=== PATIENT | female | born 1950 | race Caucasian/White ===

== ENCOUNTER 2016-11-30 07:48 | Day surgery (SDC) | payer MEDICARE, MEDICAID ==
[~2016-11-30 07:48] MED LIST: PROPOFOL INJ 200 MG/20 ML VIAL IV ONE
[2016-11-30] MEDS ORDERED: DIPHENHYDRAMINE HCL 50 MG/ML VIAL IV PRN (10:24)
[2016-11-30] MEDS ORDERED: PROMETHAZINE HCL INJ 25 MG/1 ML VIAL IV PRN (10:24)
--- NOTE | 2016-11-30 10:38 | Operative Report ---
Operative Report DATE OF SURGERY: 11/30/16 Operative Report: The risks, benefits and alternatives of the procedure including risks of bleeding, perforation requiring surgery are explained to the patient in detail and informed consent is obtained. The patient is taken back to the operating room and she is placed in the left lateral decubital position. Timeout is called. Propofol medication is administered. A rectal examination was done which did not reveal any masses, tears or fissures. An Olympus videoscope was inserted into the patient's rectum. Keeping the lumen in sight at all times the scope was then gradually advanced all the way to the cecum. The cecum identified by the usual anatomical landmarks of the ileocecal valve as well as the appendiceal office. Photodocumentation obtained prep is good. Intubation of the terminal ileum is done. The scope was then sequentially pulled back out via the various segments of the colon including the ascending colon, hepatic flexure, transverse colon, splenic flexure, descending colon and finally into the rectosigmoid colon. Retroflexion maneuvers performed. PREOPERATIVE DIAGNOSIS: Diarrhea, change of bowel habits. Previous history of C. difficile colitis status post fecal transplantation and since then has been negative. POSTOPERATIVE DIAGNOSIS: Mild nonspecific colitis of the right sided colon biopsies obtained rule out collagenous, lymphocytic, microscopic colitis. Mild terminal ileitis biopsies obtained OPERATION: Colonoscopy with biopsy SURGEON: MARIFER NORRIS ANESTHESIA: LMAC TISSUE REMOVED OR ALTERED: Terminal ileal specimens obtained. Right sided colon specimens obtained COMPLICATIONS: None. ESTIMATED BLOOD LOSS: none. INTRAOPERATIVE FINDINGS: As described above. No evidence of diverticulosis, AVMs or polyps. Internal hemorrhoids are noted PROCEDURE: Patient tolerated the procedure well. No immediate post procedure complications are noted. Patient is discharged in good condition. Discharge date 11/30/2016. Discharge diet: Regular. Discharge activity: Regular. Follow-up in 2-3 weeks Patient is instructed to call the office or proceed to the emergency room after any further problems or questions. Await on biopsies.
[2016-11-30 13:01] VITALS: BP 128/59
== END 2016-11-30 12:10 ==
LOC: OROUT 07:48
PROVIDERS: ATTEND Internal Medicine Gastroenterology
PROC: 0DBF8ZX Excision of Right Large Intestine, Via Natural or Artificial Opening Endoscopic, Diagnostic (ICD-10-PCS; 2016-11-30)
PROC: 0DBB8ZX Excision of Ileum, Via Natural or Artificial Opening Endoscopic, Diagnostic (ICD-10-PCS; principal; 2016-11-30 09:30)
DX: K52.9 Noninfective gastroenteritis and colitis, unspecified (principal); K92.1 Melena; J44.9 Chronic obstructive pulmonary disease, unspecified; I10 Essential (primary) hypertension; E11.9 Type 2 diabetes mellitus without complications; M19.90 Unspecified osteoarthritis, unspecified site; I25.10 Atherosclerotic heart disease of native coronary artery without angina pectoris; I50.9 Heart failure, unspecified; Z86.19 Personal history of other infectious and parasitic diseases; Z79.899 Other long term (current) drug therapy; Z79.4 Long term (current) use of insulin; Z79.82 Long term (current) use of aspirin
CPT/HCPCS: 45380; 36415; 82962; 84132; 88305 ×2; J2704; 810

== ENCOUNTER 2017-03-04 09:38 | Inpatient (IN) | payer MEDICARE, MEDICAID ==
[2017-03-04] MEDS ORDERED: IPRATROPIUM/ALBUTEROL 0.5-2.5 MG/3 ML AMPUL NEB ONE (10:18)
--- NOTE | 2017-03-04 10:25 | ER Document Report ---
ED General - General Chief Complaint: Nausea/Vomiting/Diarrhea Stated Complaint: WEAKNESS Mode of Arrival: Medic Information source: Patient, PENDING SALE TO [facility] Records Notes: This is a 66 year old female with multiple medical problems who is a resident of [facility] who presents with generalized weakness and overall not feeling well for the past few days. She states that her symptoms began with nausea vomiting and diarrhea about 4 days ago. This resolved and she has not had diarrhea or vomiting in the past 2 days. However she has been unable to sleep at night. She reports subjective fevers and some chills last night. She denies cough or congestion but has had mild shortness of breath. No dysuria. Her last bowel movement was yesterday and says that it was more solid. This morning she tolerated breakfast and had henao and cheese. She denies any current pain. She has had no chest pain. TRAVEL OUTSIDE OF THE [place] IN LAST 30 DAYS: No - Related Data Allergies/Adverse Reactions: No Known Allergies Allergy (Verified 04/07/16 16:28) Past Medical History - General Information source: PENDING SALE TO [facility] Records - Social History Smoking Status: Unknown if Ever Smoked Frequency of alcohol use: None Drug Abuse: None Lives with: Senior Living Family History: None - Past Medical History Cardiac Medical History: Reports: Hx Congestive Heart Failure, Hx Coronary Artery Disease, Hx Hypercholesterolemia, Hx Hypertension Denies: Hx DVT, Hx Heart Attack, Hx Pulmonary Embolism Pulmonary Medical History: Reports: Hx COPD, Hx Sleep Apnea Denies: Hx Asthma, Hx Bronchitis, Hx Pneumonia Neurological Medical History: Denies: Hx Cerebrovascular Accident, Hx Seizures Endocrine Medical History: Reports: Hx Diabetes Mellitus Type 1, Hx Diabetes Mellitus Type 2, Hx Hypothyroidism. Denies: Hx Hyperthyroidism GI Medical History: Denies: Hx Cirrhosis, Hx Hepatitis Musculoskeltal Medical History: Reports Hx Arthritis Skin Medical History: Denies Hx Eczema, Denies Hx Psoriasis Psychiatric Medical History: Reports: Hx Depression Infectious Medical History: Denies: Hx Hepatitis Past Surgical History: Reports: Hx Abdominal Surgery - umbilical hernia, Hx Appendectomy, Hx Section, Hx Cholecystectomy. Denies: Hx Hysterectomy - Immunizations Hx Diphtheria, Pertussis, Tetanus Vaccination: Yes Hx Pneumococcal Vaccination: 08/06/15 Review of Systems - Review of Systems Notes: REVIEW OF SYSTEMS: CONSTITUTIONAL : As per history of present illness EENT: Denies eye, ear, throat, or mouth pain or symptoms. Denies nasal or sinus congestion. CARDIOVASCULAR: Denies chest pain. RESPIRATORY: Denies cough, cold, or chest congestion. Denies difficulty breathing, or wheezing. GASTROINTESTINAL: Denies abdominal pain. Recent vomiting and diarrhea per history of present illness which is now resolved. GENITOURINARY: Denies difficulty urinating, painful urination, burning, frequency, or blood in urine. MUSCULOSKELETAL: Denies neck or back pain or joint pain SKIN: Denies rash or skin lesions. HEMATOLOGIC : Denies easy bruising or bleeding. LYMPHATIC: Denies swollen, enlarged glands. NEUROLOGICAL: Denies altered mental status or loss of consciousness. Denies headache. PSYCHIATRIC: Denies anxiety or stress or depression. ALL OTHER SYSTEMS REVIEWED AND NEGATIVE. Physical Exam - Vital signs Vitals: Pulse Resp BP Pulse Ox 70 18 99/45 L 98 03/04/17 09:50 03/04/17 09:50 03/04/17 09:50 03/04/17 09:50 BP on my exam 121/78 - Notes Notes: PHYSICAL EXAMINATION: GENERAL: Morbidly obese elderly female, alert and conversant and in no acute distress. HEAD: Atraumatic, normocephalic. EYES: Pupils equal round and reactive to light, extraocular movements intact, sclera anicteric, conjunctiva are normal. ENT: nares patent, oropharynx clear without exudates. Moist mucous membranes. NECK: Normal range of motion, supple without lymphadenopathy LUNGS: Few scattered and occasional expiratory wheezes bilaterally, otherwise good air movement and no rhonchi or rales HEART: Regular rate and rhythm without murmurs ABDOMEN: Soft, obese, nontender, normoactive bowel sounds. No guarding, no rebound. No masses appreciated. EXTREMITIES: Normal range of motion. Symmetric lower extremity 1+ edema which pt states is chronic for her NEUROLOGICAL: Cranial nerves grossly intact. Normal speech. No gross focal motor or sensory deficits appreciated PSYCH: Normal mood, normal affect. SKIN: Warm, Dry, normal turgor, no rashes or lesions noted. Course - Re-evaluation Re-evalutation: 03/04/17 12:01 Labs reviewed. IV antibiotics initiated for urinary tract infection. Patient is also in acute renal failure. She states that about a month ago her Lasix dose was increased from 80 mg once a day to 80 mg twice a day. This is the likely etiology of her renal failure, along with her recent vomiting and diarrhea. Discussed with hospitalist Dr. Vilchis who will admit - Vital Signs Vital signs: Temp Pulse Resp BP Pulse Ox 98.1 F 70 16 135/51 H 98 03/04/17 09:58 03/04/17 09:50 03/04/17 11:01 03/04/17 11:01 03/04/17 11:01 - Laboratory Result Diagrams: 03/04/17 10:52 03/04/17 10:52 Laboratory results interpreted by me: 03/04/17 03/04/17 03/04/17 10:32 10:52 10:52 WBC 13.2 H RBC 3.51 L Hgb 10.5 L Hct 32.1 L Absolute Neutrophils 8.6 H Absolute Monocytes 1.5 H Potassium 5.4 H BUN 70 H Creatinine 3.15 H Est GFR ( Amer) 18 L Est GFR (Non-Af Amer) 15 L Glucose 217 H Direct Bilirubin 0.5 H Creatine Kinase 141 H Ur Leukocyte Esterase LARGE H - EKG Interpretation by Me Additional EKG results interpreted by me: 03/04/17 10:28 EKG at 0954 demonstrates NSR with rate of 68, LVH, normal QRS/QT intervals, no ST segment elevation or depression Discharge - Discharge Clinical Impression: Hyperkalemia UTI (urinary tract infection) Qualifiers: Urinary tract infection type: site unspecified Hematuria presence: without hematuria Qualified Code(s): N39.0 - Urinary tract infection, site not specified Acute renal failure Qualifiers: Acute renal failure type: unspecified Qualified Code(s): N17.9 - Acute kidney failure, unspecified Condition: Fair Disposition: ADMITTED INPATIENT Admitting Provider: Hospitalist - Dr. Vilchis Unit Admitted: Medical Floor
[2017-03-04 11:10] LABS: ABSOLUTE BASOPHILS # (AUTO) 0.1 10^3/uL (0.0-0.2); ABSOLUTE EOSINOPHILS # (AUTO) 0.2 10^3/uL (0.0-0.6); ABSOLUTE LYMPHOCYTES (AUTO) 2.8 10^3/uL (0.5-4.7); ABSOLUTE MONOCYTES (AUTO) 1.5 10^3/uL (0.1-1.4); ABSOLUTE NEUT (AUTO) 8.6 10^3/uL (1.7-8.2); BASOPHILS % (AUTO) 0.5 % (0-2); EOSINOPHILS % (AUTO) 1.3 % (0-6); HEMATOCRIT 32.1 % (36.0-47.0); HEMOGLOBIN 10.5 g/dL (12.0-15.5); HGB HCT DIFFERENCE -0.6; LYMPHOCYTES % (AUTO) 21.2 % (13-45); MEAN CORPUSCULAR HGB CONC 32.8 g/dL (32.0-36.0); MEAN CORPUSCULAR VOLUME 91 fl (80-97); MONOCYTES % (AUTO) 11.2 % (3-13); RED BLOOD COUNT 3.51 10^6/uL (3.72-5.28); SEGMENTED NEUTROPHILS % (AUTO) 65.8 % (42-78); WHITE BLOOD COUNT 13.2 10^3/uL (4.0-10.5)
[2017-03-04 11:12] LABS: APPEARANCE,URINE CLOUDY; BILIRUBIN,URINE NEGATIVE (NEGATIVE); GLUCOSE, URINE NEGATIVE (NEGATIVE); KETONES,URINE NEGATIVE (NEGATIVE); LEUKOCYTE ESTERASE,URINE LARGE (NEGATIVE); NITRITE,URINE NEGATIVE (NEGATIVE); PROTEIN,URINE NEGATIVE (NEGATIVE); URINE SPECIFIC GRAVITY 1.011; UROBILINOGEN,URINE NEGATIVE mg/dL (<2.0)
[2017-03-04] MEDS ORDERED: CEFTRIAXONE 1 GM/D5W RTU 50 ML IV ONE (11:33)
[2017-03-04 11:34] LABS: ALANINE AMINOTRANSFERASE 26 U/L (9-52); ALBUMIN 3.6 g/dL (3.5-5.0); ALKALINE PHOSPHATASE 62 U/L (38-126); ANION GAP 13 (5-19); ASPARTATE AMINO TRANSFERASE 20 U/L (14-36); BILIRUBIN,DIRECT 0.5 mg/dL (0.0-0.4); BILIRUBIN,TOTAL 0.7 mg/dL (0.2-1.3); BLOOD UREA NITROGEN 70 mg/dL (7-20); CALCIUM 9.8 mg/dL (8.4-10.2); CARBON DIOXIDE 29 mmol/L (22-30); CHLORIDE 99 mmol/L (98-107); CREATINE KINASE 141 U/L (30-135); CREATININE RESULT 3.15 mg/dL (0.52-1.25); GLUCOSE 217 mg/dL (75-110); POTASSIUM 5.4 mmol/L (3.6-5.0); SODIUM 140.7 mmol/L (137-145); TOTAL PROTEIN 7.2 g/dL (6.3-8.2)
[2017-03-04 11:46] LABS: TROPONIN I 0.014 ng/mL
[2017-03-04 11:47] LABS: CREATINE KINASE MB < 0.22 ng/mL (<4.55)
[2017-03-04] MEDS ORDERED: ONDANSETRON 4 MG TAB.RAPDIS PO PRN (12:25)
[2017-03-04] MEDS ORDERED: ACETAMINOPHEN 325 MG TABLET PO PRN (12:25)
[2017-03-04] MEDS ORDERED: ONDANSETRON HCL INJ/PF 4 MG/2 ML SDV IV PRN (12:25)
[2017-03-04] MEDS ORDERED: NORMAL SALINE 1000 ML 1,000 ML IV PRN (12:25)
[2017-03-04] MEDS ORDERED: DEXTROSE 40% GEL 15 GM TUBE PO PRN ×2 (12:36)
[2017-03-04] MEDS ORDERED: GLUCAGON,HUMAN RECOMB 1 MG INJ IM PRN (12:36)
[2017-03-04] MEDS ORDERED: DEXTROSE 50%-WATER 25 GM/50 ML DISP.SYRIN IV PRN ×2 (12:36)
[2017-03-04] MEDS ORDERED: ERTAPENEM SODIUM 1 GM in NORMAL SALINE 50 ML IV SCH (12:45)
--- NOTE | 2017-03-04 13:00 | PDOC H&P ---
History of Present Illness Admission Date/PCP: 03/04/17 12:09 PANDA RODRIGUEZ Patient complains of: 1 and half week history of cough and diarrhea. History of Present Illness: LORETO JOSHI is a 66 year old female known to me from previous admissions who presents with acute renal failure and a urinary tract infection. Patient reports that over the last one half weeks she's had problems with a nonproductive cough as well as diarrhea. She does have a history of C. difficile in the past. She reports that today she's had some chills and was noted have a low-grade fever by EMS. The patient's creatinine was up to 3.5 today and was normal just several months ago. She does have a history of chronic renal failure stage III. The patient denies any dysuria or urinary frequency. She denies any hematuria. She denies any back pain. Patient has had problems with congestive heart failure as well as the chronic renal failure and her diuretic dose has been adjusted recently. Past Medical History Cardiac Medical History: Reports: Congestive Heart Failure, Coronary Artery Disease, Hyperlipidema, Hypertension Denies: DVT, Myocardial Infarction, Pulmonary Embolism Pulmonary Medical History: Reports: Chronic Obstructive Pulmonary Disease (COPD) , Sleep Apnea Denies: Asthma, Bronchitis, Pneumonia Neurological Medical History: Reports: Other - Peripheral neuropathy Denies: Seizures Endocrine Medical History: Reports: Diabetes Mellitus Type 2, Hypothyroidism Denies: Hyperthyroidism Renal/ Medical History: Reports: Chronic Kidney Disease GI Medical History: Denies: Cirrhosis, Hepatitis Musculoskeltal Medical History: Reports: Arthritis Skin Medical History: Denies: Eczema, Psoriasis Psychiatric Medical History: Reports: Depression Hematology: Reports: Anemia Past Surgical History Past Surgical History: Reports: Appendectomy, Section, Cholecystectomy Social History Information Source: Patient Lives with: Shelter Smoking Status: Never Smoker Frequency of Alcohol Use: None Hx Recreational Drug Use: No Drugs: None Hx Prescription Drug Abuse: No - Advance Directive Resuscitation Status: Full Code Surrogate healthcare decision maker:: Her son Family History Family History: CAD Parental Family History Reviewed: Yes Children Family History Reviewed: No Sibling(s) Family History Reviewed.: No Medication/Allergy Home Medications: Amlodipine Besylate [Norvasc 10 mg Tablet] 10 mg PO DAILY 08/16/16 Aspirin [Aspirin 325 mg Tablet] 325 mg PO DAILY 08/16/16 Atorvastatin Calcium [Lipitor 20 mg Tablet] 20 mg PO QHS 08/16/16 Carvedilol 6.25 mg PO Q12 08/16/16 Ergocalciferol (Vitamin D2) [Drisdol] 50,000 unit PO AYOUB 08/16/16 Fenofibrate Nanocrystallized [Tricor] 145 mg PO DAILY 08/16/16 Ferrous Sulfate [Ferrousul] 325 mg PO DAILY 08/16/16 Furosemide [Lasix 40 mg Tablet] 40 mg PO DAILY 08/16/16 Insulin Glargine,Hum.rec.anlog [Lantus Insulin 100 Unit/1 ml 10 ml] 50 units SUBCUT BID 08/16/16 Levothyroxine Sodium [Synthroid 0.088 mg Tablet] 88 mcg PO DAILY 08/16/16 Lisinopril [Prinivil 2.5 mg Tablet] 2.5 mg PO DAILY 08/16/16 Omeprazole Magnesium [Prilosec Otc] 20 mg PO DAILY 08/16/16 Ondansetron HCl [Zofran 4 mg Tablet] 4 mg PO Q6HWA 08/16/16 Pregabalin [Lyrica 100 mg Capsule] 75 mg PO TID 08/16/16 Primidone [Mysoline 50 mg Tablet] 25 mg PO DAILYP 08/16/16 Sertraline HCl [Zoloft] 25 mg PO DAILY 08/16/16 Tramadol HCl [Ultram] 50 mg PO TID PRN 08/16/16 Amox Tr/Potassium Clavulanate [Augmentin "500" Tablet] 1 tab PO Q8 #9 tablet Allergies/Adverse Reactions: No Known Allergies Allergy (Verified 04/07/16 16:28) Review of Systems Constitutional: PRESENT: weight loss. ABSENT: chills, fever(s), headache(s) Eyes: ABSENT: visual disturbances Ears: ABSENT: hearing changes Cardiovascular: ABSENT: chest pain, dyspnea on exertion, edema, orthropnea, palpitations Respiratory: PRESENT: cough. ABSENT: hemoptysis Gastrointestinal: PRESENT: diarrhea Genitourinary: ABSENT: dysuria, hematuria Integumentary: ABSENT: rash, wounds Psychiatric: ABSENT: depression Endocrine: ABSENT: cold intolerance, heat intolerance, polydipsia, polyuria Physical Exam Vital Signs: Temp Pulse Resp BP Pulse Ox 98.1 F 70 16 135/51 H 98 03/04/17 09:58 03/04/17 09:50 03/04/17 11:01 03/04/17 11:01 03/04/17 11:01 General appearance: PRESENT: no acute distress, morbidly obese Head exam: PRESENT: atraumatic, normocephalic Eye exam: PRESENT: conjunctiva pink, EOMI, PERRLA. ABSENT: scleral icterus Ear exam: PRESENT: normal external ear exam Mouth exam: PRESENT: moist, tongue midline Neck exam: ABSENT: carotid bruit, JVD, lymphadenopathy, thyromegaly Respiratory exam: PRESENT: clear to auscultation emperatriz. ABSENT: rales, rhonchi, wheezes Cardiovascular exam: PRESENT: RRR. ABSENT: diastolic murmur, rubs, systolic murmur Pulses: PRESENT: normal dorsalis pedis pul GI/Abdominal exam: PRESENT: normal bowel sounds, soft. ABSENT: distended, guarding, mass, organolmegaly, rebound, tenderness Rectal exam: PRESENT: deferred Extremities exam: PRESENT: other - Right arm swollen more than left arm.. ABSENT: calf tenderness, clubbing Neurological exam: PRESENT: alert, awake, oriented to person, oriented to place , oriented to time, oriented to situation, CN II-XII grossly intact. ABSENT: motor sensory deficit Psychiatric exam: PRESENT: appropriate affect, normal mood. ABSENT: homicidal ideation, suicidal ideation Skin exam: PRESENT: dry, intact, warm. ABSENT: cyanosis, rash Results Impressions: Chest X-Ray 03/04/17 10:18 IMPRESSION: Cardiomegaly with mild vascular congestion. Assessment & Plan - Diagnosis (1) Acute renal failure Is this a current diagnosis for this admission?: YesPlan: Patient has had decreased by mouth intake as well as some diarrhea for the last one half weeks. She appears to be volume depleted and we will give IV fluids. The difficulty for this patient is that she also has congestive heart failure and does require diuretics frequently for treatment of her congestive heart failure. I discussed the possibility of her having dialysis however at this time she is not interested. Her son who is at the bedside encouraged her to consider dialysis. (2) UTI (urinary tract infection) Qualifiers: Urinary tract infection type: site unspecified Hematuria presence: without hematuria Qualified Code(s): N39.0 - Urinary tract infection, site not specified Is this a current diagnosis for this admission?: YesPlan: Patient has a history of Escherichia coli that is extended spectrum beta- lactamase. We'll give ertapenem because of this. (3) Anemia, chronic disease Is this a current diagnosis for this admission?: YesPlan: Most likely related to her chronic renal failure stage III. (4) CAD (coronary artery disease) Qualifiers: Coronary Disease-Associated Artery/Lesion type: [place] artery [place] vs. transplanted heart: unspecified whether [place] or transplanted heart Associated angina: without angina Qualified Code(s): I25.10 - Atherosclerotic heart disease of [place] coronary artery without angina pectoris Is this a current diagnosis for this admission?: YesPlan: Patient denies any chest pain. (5) CHF (congestive heart failure) Qualifiers: Congestive heart failure type: diastolic Congestive heart failure chronicity: chronic Qualified Code(s): I50.32 - Chronic diastolic ( congestive) heart failure Is this a current diagnosis for this admission?: YesPlan: Patient has chronic diastolic dysfunction. (6) COPD (chronic obstructive pulmonary disease) Qualifiers: COPD type: unspecified COPD Qualified Code(s): J44.9 - Chronic obstructive pulmonary disease, unspecified Is this a current diagnosis for this admission?: YesPlan: We'll give nebulizers as needed. (7) Diabetes Is this a current diagnosis for this admission?: YesPlan: We'll continue with Lantus and sliding scale insulin. (8) Obstructive sleep apnea Is this a current diagnosis for this admission?: YesPlan: Patient uses CPAP at night. (9) Peripheral neuropathy Qualifiers: Peripheral neuropathy type: polyneuropathy, unspecified Qualified Code(s): G62.9 - Polyneuropathy, unspecified Is this a current diagnosis for this admission?: Yes (10) Dyslipidemia Is this a current diagnosis for this admission?: Yes (11) Hypothyroidism Qualifiers: Hypothyroidism type: unspecified Qualified Code(s): E03.9 - Hypothyroidism, unspecified (12) C. difficile colitis Is this a current diagnosis for this admission?: YesPlan: Patient has a history of C. difficile colitis and does have diarrhea. We will check a C. difficile test today. (13) Full code status Is this a current diagnosis for this admission?: Yes - Time Time Spent: 50 to 70 Minutes - Inpatient Certification Medical Necessity: Need For IV Fluids, Need for IV Antibiotics
[2017-03-04] MEDS ORDERED: ENOXAPARIN SODIUM INJ 30 MG/0.3 ML DISP.SYRIN SUBCUT ONE (13:30)
[2017-03-04] MEDS: INSULIN LISPRO 100 UNIT/ML 3 ML VIAL SUBCUT PRN ×2 (14:25→22:25)
[2017-03-04] MEDS: ALBUTEROL SULFATE 0.083% NEB 2.5 MG/3 ML AMPUL NEB PRN (16:16)
[2017-03-04] MEDS: ERTAPENEM SODIUM 0.5 GM in NORMAL SALINE 50 ML IV SCH (16:45)
[2017-03-04] MEDS: FAMOTIDINE 20 MG TABLET PO SCH (21:11)
[2017-03-05 04:44] LABS: HEMATOCRIT 29.9 % (36.0-47.0); HEMOGLOBIN 9.9 g/dL (12.0-15.5); HGB HCT DIFFERENCE -0.2; MEAN CORPUSCULAR HEMOGLOBIN 30.1 pg (27.0-33.4); MEAN CORPUSCULAR VOLUME 91 fl (80-97); RED BLOOD COUNT 3.28 10^6/uL (3.72-5.28); WHITE BLOOD COUNT 9.5 10^3/uL (4.0-10.5)
[2017-03-05 05:08] LABS: ANION GAP 13 (5-19); BLOOD UREA NITROGEN 72 mg/dL (7-20); CALCIUM 9.5 mg/dL (8.4-10.2); CARBON DIOXIDE 26 mmol/L (22-30); CHLORIDE 104 mmol/L (98-107); CREATININE RESULT 2.69 mg/dL (0.52-1.25); GLUCOSE 212 mg/dL (75-110); POTASSIUM 4.9 mmol/L (3.6-5.0); SODIUM 142.6 mmol/L (137-145)
[2017-03-05] MEDS ORDERED: LEVALBUTEROL HCL NEB 1.25 MG/3 ML AMPUL NEB PRN (07:44)
[2017-03-05] MEDS ORDERED: TRAMADOL HCL 50 MG TABLET PO PRN (07:44)
[2017-03-05] MEDS: ALBUTEROL SULFATE 0.083% NEB 2.5 MG/3 ML AMPUL NEB PRN (07:49)
[2017-03-05] MEDS: ENOXAPARIN SODIUM INJ 30 MG/0.3 ML DISP.SYRIN SUBCUT SCH (08:19)
[2017-03-05] MEDS: LANSOPRAZOLE 15 MG TAB.RAP.DR PO SCH (08:20)
[2017-03-05] MEDS: INSULIN LISPRO 100 UNIT/ML 3 ML VIAL SUBCUT PRN ×3 (08:41→17:22)
[2017-03-05] MEDS: INSULIN GLARGINE,HUM.REC.ANLOG 1,000 UNIT/10 ML UNIT SUBCUT SCH ×2 (09:38→21:38)
[2017-03-05] MEDS: LISINOPRIL 5 MG TABLET PO SCH (09:38)
[2017-03-05] MEDS: SERTRALINE HCL 50 MG TABLET PO SCH (09:39)
[2017-03-05] MEDS: CARVEDILOL 12.5 MG TABLET PO SCH ×2 (09:40→21:39)
[2017-03-05] MEDS: FERROUS SULFATE 325 MG TABLET PO SCH ×2 (09:40→17:22)
[2017-03-05] MEDS: ASPIRIN 325 MG TABLET PO SCH (09:40)
[2017-03-05] MEDS: LEVOTHYROXINE SODIUM 0.088 MG TABLET PO SCH (09:40)
[2017-03-05] MEDS: POLYETHYLENE GLYCOL 3350 POWDER 17 GM/1 PACKET PO SCH ×2 (09:41→17:22)
[2017-03-05] MEDS: FAMOTIDINE 20 MG TABLET PO SCH ×2 (09:41→21:39)
--- NOTE | 2017-03-05 10:19 | EKG REPORT ---
SEVERITY:- ABNORMAL ECG - SINUS RHYTHM LEFT VENTRICULAR HYPERTROPHY : Confirmed by: Eric Edward 05-Mar-2017 10:19:07
--- NOTE | 2017-03-05 12:52 | PDOC PROGRESS REPORT ---
Subjective Progress Note for:: 03/05/17 Subjective:: Patient reports a nonproductive cough. Physical Exam Vital Signs: Temp Pulse Resp BP Pulse Ox 98.5 F 68 20 125/48 L 100 03/05/17 11:18 03/05/17 11:18 03/05/17 11:18 03/05/17 11:18 03/05/17 11:18 Intake & Output 03/04/17 03/05/17 03/06/17 06:59 06:59 06:59 Intake Total 1203 Balance 1203 Weight 134.6 kg General appearance: PRESENT: no acute distress Eye exam: PRESENT: conjunctiva pink. ABSENT: scleral icterus Mouth exam: PRESENT: moist, tongue midline Neck exam: ABSENT: JVD Respiratory exam: PRESENT: clear to auscultation emperatriz. ABSENT: rales, rhonchi, wheezes Cardiovascular exam: PRESENT: RRR. ABSENT: diastolic murmur, rubs, systolic murmur GI/Abdominal exam: PRESENT: normal bowel sounds, soft. ABSENT: distended, guarding, mass, organolmegaly, rebound, tenderness Extremities exam: PRESENT: pedal edema - Trace pedal edema. ABSENT: calf tenderness, clubbing Neurological exam: PRESENT: alert, awake, oriented to person, oriented to place , oriented to time, oriented to situation, CN II-XII grossly intact. ABSENT: motor sensory deficit Psychiatric exam: PRESENT: appropriate affect Skin exam: PRESENT: dry, intact, warm. ABSENT: cyanosis, rash Results Laboratory Results: 03/05/17 04:26 03/05/17 04:26 03/05/17 03/05/17 04:26 04:26 WBC 9.5 RBC 3.28 L Hgb 9.9 L Hct 29.9 L MCV 91 MCH 30.1 MCHC 33.0 RDW 13.0 Plt Count 180 Sodium 142.6 Potassium 4.9 Chloride 104 Carbon Dioxide 26 Anion Gap 13 BUN 72 H Creatinine 2.69 H Est GFR ( Amer) 21 L Est GFR (Non-Af Amer) 18 L Glucose 212 H Calcium 9.5 Impressions: Chest X-Ray 03/04/17 10:18 IMPRESSION: Cardiomegaly with mild vascular congestion. Assessment & Plan - Diagnosis (1) Acute renal failure Qualifiers: Acute renal failure type: unspecified Qualified Code(s): N17.9 - Acute kidney failure, unspecified Is this a current diagnosis for this admission?: YesPlan: Patient has had decreased by mouth intake as well as some diarrhea for the last one half weeks. She appears to be volume depleted and we will continue to give IV fluids. The difficulty for this patient is that she also has congestive heart failure and does require diuretics frequently for treatment of her congestive heart failure. I discussed the possibility of her having dialysis however at this time she is not interested. Her son who is at the bedside encouraged her to consider dialysis. Will consult nephrology in the morning for their opinion. (2) UTI (urinary tract infection) Qualifiers: Urinary tract infection type: site unspecified Hematuria presence: without hematuria Qualified Code(s): N39.0 - Urinary tract infection, site not specified Is this a current diagnosis for this admission?: YesPlan: Patient has a history of Escherichia coli that is extended spectrum beta- lactamase. We'll give ertapenem because of this. (3) Anemia, chronic disease Is this a current diagnosis for this admission?: YesPlan: Most likely related to her chronic renal failure stage III. (4) CAD (coronary artery disease) Qualifiers: Coronary Disease-Associated Artery/Lesion type: [place] artery [place] vs. transplanted heart: unspecified whether [place] or transplanted heart Associated angina: without angina Qualified Code(s): I25.10 - Atherosclerotic heart disease of [place] coronary artery without angina pectoris Is this a current diagnosis for this admission?: YesPlan: Patient denies any chest pain. (5) CHF (congestive heart failure) Qualifiers: Congestive heart failure type: diastolic Congestive heart failure chronicity: chronic Qualified Code(s): I50.32 - Chronic diastolic ( congestive) heart failure Is this a current diagnosis for this admission?: YesPlan: Patient has chronic diastolic dysfunction. (6) COPD (chronic obstructive pulmonary disease) Qualifiers: COPD type: unspecified COPD Qualified Code(s): J44.9 - Chronic obstructive pulmonary disease, unspecified Is this a current diagnosis for this admission?: YesPlan: We'll give nebulizers as needed. (7) Diabetes Is this a current diagnosis for this admission?: YesPlan: We'll continue with Lantus and sliding scale insulin. (8) Obstructive sleep apnea Is this a current diagnosis for this admission?: YesPlan: Patient uses CPAP at night. (9) Peripheral neuropathy Qualifiers: Peripheral neuropathy type: polyneuropathy, unspecified Qualified Code(s): G62.9 - Polyneuropathy, unspecified Is this a current diagnosis for this admission?: Yes (10) Dyslipidemia Is this a current diagnosis for this admission?: Yes (11) Hypothyroidism Qualifiers: Hypothyroidism type: unspecified Qualified Code(s): E03.9 - Hypothyroidism, unspecified Is this a current diagnosis for this admission?: Yes (12) C. difficile colitis Is this a current diagnosis for this admission?: YesPlan: Patient has a history of C. difficile colitis and does have diarrhea. We will check a C. difficile test today. (13) Full code status Is this a current diagnosis for this admission?: Yes - Time Time Spent with patient: 25-34 minutes - Inpatient Certification Medical Necessity: Need For IV Fluids, Need for IV Antibiotics
[2017-03-05] MEDS: PREGABALIN 75 MG CAPSULE PO SCH ×2 (14:40→21:40)
[2017-03-05] MEDS: ERTAPENEM SODIUM 0.5 GM in NORMAL SALINE 50 ML IV SCH (15:36)
--- NOTE | 2017-03-05 16:49 | XCELERA REPORT ---
[address] [address] Upper Extremity Venous Evaluation Name: LORETO JOSHI Age: 66 yrs Gender: Female : 1950 Patient Status: Inpatient Patient Location: \S\[facility]\S\A Study Date: 03/04/2017 04:00 PM Procedure: Unilateral duplex scan of the right upper extremity veins was performed, including responses to compression and other maneuvers. Reason For Study: r upper r/o dvt Ordering Physician: KAREEM MOELLER Performed By: Nadine Varma Right Side Venous Evaluation Normal vessel filling wall to wall, compression and augmentation as well as Colour flow down to the forearm veins. Critical Findings Called in to Dr Busteed at about 1630. Interpretation Summary Normal compression, patency, spontaneous and phasic flow of the right upper extremity veins. : KAREEM MOELLER > Ramirez Prajapati
[2017-03-05] MEDS: ATORVASTATIN CALCIUM 20 MG TABLET PO SCH (21:39)
[2017-03-05] MEDS: FENOFIBRATE NANOCRYSTALLIZED 145 MG TABLET PO SCH (21:39)
[2017-03-05] MEDS: PRIMIDONE 50 MG TABLET PO SCH (21:40)
[2017-03-06 05:06] LABS: ABSOLUTE BASOPHILS # (AUTO) 0.1 10^3/uL (0.0-0.2); ABSOLUTE EOSINOPHILS # (AUTO) 0.3 10^3/uL (0.0-0.6); ABSOLUTE LYMPHOCYTES (AUTO) 2.7 10^3/uL (0.5-4.7); ABSOLUTE MONOCYTES (AUTO) 0.8 10^3/uL (0.1-1.4); ABSOLUTE NEUT (AUTO) 3.9 10^3/uL (1.7-8.2); BASOPHILS % (AUTO) 0.7 % (0-2); HEMATOCRIT 29.6 % (36.0-47.0); HEMOGLOBIN 9.7 g/dL (12.0-15.5); HGB HCT DIFFERENCE -0.5; LYMPHOCYTES % (AUTO) 34.1 % (13-45); MEAN CORPUSCULAR HGB CONC 32.8 g/dL (32.0-36.0); MEAN CORPUSCULAR VOLUME 91 fl (80-97); MONOCYTES % (AUTO) 10.8 % (3-13); RED BLOOD COUNT 3.24 10^6/uL (3.72-5.28); SEGMENTED NEUTROPHILS % (AUTO) 50.4 % (42-78); WHITE BLOOD COUNT 7.8 10^3/uL (4.0-10.5)
[2017-03-06 05:22] LABS: ANION GAP 11 (5-19); BLOOD UREA NITROGEN 55 mg/dL (7-20); CALCIUM 9.6 mg/dL (8.4-10.2); CARBON DIOXIDE 28 mmol/L (22-30); CHLORIDE 109 mmol/L (98-107); CREATININE RESULT 1.93 mg/dL (0.52-1.25); GLUCOSE 180 mg/dL (75-110); POTASSIUM 4.8 mmol/L (3.6-5.0); SODIUM 147.6 mmol/L (137-145)
[2017-03-06] MEDS: PREGABALIN 75 MG CAPSULE PO SCH ×3 (06:12→22:16)
[2017-03-06] MEDS: INSULIN LISPRO 100 UNIT/ML 3 ML VIAL SUBCUT PRN (08:41)
[2017-03-06] MEDS: LANSOPRAZOLE 15 MG TAB.RAP.DR PO SCH (08:41)
[2017-03-06] MEDS: ENOXAPARIN SODIUM INJ 30 MG/0.3 ML DISP.SYRIN SUBCUT SCH (08:41)
[2017-03-06] MEDS: ASPIRIN 325 MG TABLET PO SCH (09:58)
[2017-03-06] MEDS: FERROUS SULFATE 325 MG TABLET PO SCH ×2 (09:58→17:36)
[2017-03-06] MEDS: LISINOPRIL 5 MG TABLET PO SCH (09:58)
[2017-03-06] MEDS: LEVOTHYROXINE SODIUM 0.088 MG TABLET PO SCH (09:58)
[2017-03-06] MEDS: FAMOTIDINE 20 MG TABLET PO SCH ×2 (09:58→22:15)
[2017-03-06] MEDS: SERTRALINE HCL 50 MG TABLET PO SCH (09:58)
[2017-03-06] MEDS: INSULIN GLARGINE,HUM.REC.ANLOG 1,000 UNIT/10 ML UNIT SUBCUT SCH ×2 (09:58→22:16)
[2017-03-06] MEDS: CARVEDILOL 12.5 MG TABLET PO SCH ×2 (09:58→22:15)
[2017-03-06] MEDS: POLYETHYLENE GLYCOL 3350 POWDER 17 GM/1 PACKET PO SCH ×2 (10:11→17:43)
--- NOTE | 2017-03-06 11:02 | PDOC PROGRESS REPORT ---
Subjective Progress Note for:: 03/06/17 Subjective:: Denies any complaints. Physical Exam Vital Signs: Temp Pulse Resp BP Pulse Ox 97.8 F 76 17 142/55 H 97 03/06/17 08:04 03/06/17 08:04 03/06/17 08:04 03/06/17 08:04 03/06/17 08:04 Intake & Output 03/05/17 03/06/17 03/07/17 06:59 06:59 06:59 Intake Total 1203 4074 237 Balance 1203 4074 237 Weight 134.6 kg 139.5 kg General appearance: PRESENT: no acute distress Eye exam: PRESENT: conjunctiva pink. ABSENT: scleral icterus Mouth exam: PRESENT: moist, tongue midline Neck exam: ABSENT: JVD Respiratory exam: PRESENT: clear to auscultation emperatriz. ABSENT: rales, rhonchi, wheezes Cardiovascular exam: PRESENT: RRR. ABSENT: diastolic murmur, rubs, systolic murmur GI/Abdominal exam: PRESENT: normal bowel sounds, soft. ABSENT: distended, guarding, mass, organolmegaly, rebound, tenderness Extremities exam: ABSENT: calf tenderness, clubbing, pedal edema Neurological exam: PRESENT: alert, awake, oriented to person, oriented to place , oriented to time, oriented to situation, CN II-XII grossly intact. ABSENT: motor sensory deficit Psychiatric exam: PRESENT: appropriate affect Skin exam: PRESENT: dry, intact, warm. ABSENT: cyanosis, rash Results Laboratory Results: 03/06/17 04:38 03/06/17 04:38 03/06/17 03/06/17 04:38 04:38 WBC 7.8 RBC 3.24 L Hgb 9.7 L Hct 29.6 L MCV 91 MCH 30.0 MCHC 32.8 RDW 13.0 Plt Count 184 Seg Neutrophils % 50.4 Lymphocytes % 34.1 Monocytes % 10.8 Eosinophils % 4.0 Basophils % 0.7 Absolute Neutrophils 3.9 Absolute Lymphocytes 2.7 Absolute Monocytes 0.8 Absolute Eosinophils 0.3 Absolute Basophils 0.1 Sodium 147.6 H Potassium 4.8 Chloride 109 H Carbon Dioxide 28 Anion Gap 11 BUN 55 H Creatinine 1.93 H Est GFR ( Amer) 31 L Est GFR (Non-Af Amer) 26 L Glucose 180 H Calcium 9.6 Impressions: Chest X-Ray 04/29/17 10:18 IMPRESSION: Cardiomegaly with mild vascular congestion. Assessment & Plan - Diagnosis (1) Acute renal failure Qualifiers: Acute renal failure type: unspecified Qualified Code(s): N17.9 - Acute kidney failure, unspecified Is this a current diagnosis for this admission?: YesPlan: Patient has had decreased by mouth intake as well as some diarrhea for the last one half weeks. Today she appears euvolemic. The difficulty for this patient is that she also has congestive heart failure and does require diuretics frequently for treatment of her congestive heart failure. I discussed the possibility of her having dialysis however at this time she is not interested. Nephrology has been consulted for their opinion and hopefully they'll be able to see her today. (2) UTI (urinary tract infection) Qualifiers: Urinary tract infection type: site unspecified Hematuria presence: without hematuria Qualified Code(s): N39.0 - Urinary tract infection, site not specified Is this a current diagnosis for this admission?: YesPlan: Patient has a history of Escherichia coli that is extended spectrum beta- lactamase. We'll give ertapenem because of this. (3) Anemia, chronic disease Is this a current diagnosis for this admission?: YesPlan: Most likely related to her chronic renal failure stage III. (4) CAD (coronary artery disease) Qualifiers: Coronary Disease-Associated Artery/Lesion type: [place] artery [place] vs. transplanted heart: unspecified whether [place] or transplanted heart Associated angina: without angina Qualified Code(s): I25.10 - Atherosclerotic heart disease of [place] coronary artery without angina pectoris Is this a current diagnosis for this admission?: YesPlan: Patient denies any chest pain. (5) CHF (congestive heart failure) Qualifiers: Congestive heart failure type: diastolic Congestive heart failure chronicity: chronic Qualified Code(s): I50.32 - Chronic diastolic ( congestive) heart failure Is this a current diagnosis for this admission?: YesPlan: Patient has chronic diastolic dysfunction. She has been getting IV fluids and today she appears to be euvolemic. We'll continue the fluids through today (6) COPD (chronic obstructive pulmonary disease) Qualifiers: COPD type: unspecified COPD Qualified Code(s): J44.9 - Chronic obstructive pulmonary disease, unspecified Is this a current diagnosis for this admission?: YesPlan: We'll give nebulizers as needed. (7) Diabetes Is this a current diagnosis for this admission?: YesPlan: We'll continue with Lantus and sliding scale insulin. (8) Obstructive sleep apnea Is this a current diagnosis for this admission?: YesPlan: Patient uses CPAP at night. (9) Peripheral neuropathy Qualifiers: Peripheral neuropathy type: polyneuropathy, unspecified Qualified Code(s): G62.9 - Polyneuropathy, unspecified Is this a current diagnosis for this admission?: Yes (10) Dyslipidemia Is this a current diagnosis for this admission?: Yes (11) Hypothyroidism Qualifiers: Hypothyroidism type: unspecified Qualified Code(s): E03.9 - Hypothyroidism, unspecified Is this a current diagnosis for this admission?: Yes (12) C. difficile colitis Is this a current diagnosis for this admission?: YesPlan: Patient has a history of C. difficile colitis and had diarrhea. This has resolved. (13) Full code status Is this a current diagnosis for this admission?: Yes - Time Time Spent with patient: 25-34 minutes - Inpatient Certification Medical Necessity: Need Close Monitoring Due to Risk of Patient Decompensation, Need For IV Fluids
[2017-03-06] MEDS: ERTAPENEM SODIUM 0.5 GM in NORMAL SALINE 50 ML IV SCH (15:01)
[2017-03-06] MEDS: FENOFIBRATE NANOCRYSTALLIZED 145 MG TABLET PO SCH (22:15)
[2017-03-06] MEDS: ATORVASTATIN CALCIUM 20 MG TABLET PO SCH (22:15)
[2017-03-06] MEDS: PRIMIDONE 50 MG TABLET PO SCH (22:15)
[2017-03-07] MEDS: PREGABALIN 75 MG CAPSULE PO SCH ×3 (05:55→21:11)
[2017-03-07 06:41] LABS: ABSOLUTE BASOPHILS # (AUTO) 0.1 10^3/uL (0.0-0.2); ABSOLUTE EOSINOPHILS # (AUTO) 0.3 10^3/uL (0.0-0.6); ABSOLUTE LYMPHOCYTES (AUTO) 2.5 10^3/uL (0.5-4.7); ABSOLUTE MONOCYTES (AUTO) 0.9 10^3/uL (0.1-1.4); ABSOLUTE NEUT (AUTO) 3.9 10^3/uL (1.7-8.2); EOSINOPHILS % (AUTO) 3.6 % (0-6); LYMPHOCYTES % (AUTO) 32.6 % (13-45); MEAN CORPUSCULAR HEMOGLOBIN 30.2 pg (27.0-33.4); MEAN CORPUSCULAR HGB CONC 33.2 g/dL (32.0-36.0); MEAN CORPUSCULAR VOLUME 91 fl (80-97); MONOCYTES % (AUTO) 11.8 % (3-13); RED BLOOD COUNT 3.29 10^6/uL (3.72-5.28); RED CELL DISTRIBUTION WIDTH 13.1 % (11.5-14.0); WHITE BLOOD COUNT 7.6 10^3/uL (4.0-10.5)
[2017-03-07 07:03] LABS: ANION GAP 9 (5-19); BLOOD UREA NITROGEN 43 mg/dL (7-20); CALCIUM 9.7 mg/dL (8.4-10.2); CARBON DIOXIDE 28 mmol/L (22-30); CHLORIDE 112 mmol/L (98-107); CREATININE RESULT 1.68 mg/dL (0.52-1.25); GLUCOSE 97 mg/dL (75-110); POTASSIUM 4.8 mmol/L (3.6-5.0); SODIUM 149.1 mmol/L (137-145)
[2017-03-07] MEDS ORDERED: ERGOCALCIFEROL (VITAMIN D2) 50000 UNIT (1.25 MG) CAPSULE PO SCH (07:44)
[2017-03-07] MEDS ORDERED: 1/2 NORMAL SALINE 1,000 ML IV PRN (09:00)
--- NOTE | 2017-03-07 09:04 | PDOC PROGRESS REPORT ---
Subjective Progress Note for:: 03/07/17 Subjective:: Patient reports being weak. Shortness of breath on and off. Denies having diarrhea chills or fever. No abdominal pain nausea or vomiting. No chest pain. She is able to void, but is incontinent. Physical Exam Vital Signs: Temp Pulse Resp BP Pulse Ox 97.3 F 72 17 138/40 H 100 03/06/17 20:30 03/06/17 20:30 03/06/17 20:30 03/06/17 20:30 03/06/17 20:30 Intake & Output 03/06/17 03/07/17 03/08/17 06:59 06:59 06:59 Intake Total 4074 3357 Balance 4074 3357 Weight 139.5 kg 140.5 kg General appearance: PRESENT: no acute distress, cooperative, morbidly obese Head exam: PRESENT: normocephalic Eye exam: PRESENT: EOMI Mouth exam: PRESENT: moist, neck supple Neck exam: ABSENT: JVD Respiratory exam: PRESENT: clear to auscultation emperatriz - Anteriorly bilateral, decreased breath sounds - Lower lung phelps posteriorly Cardiovascular exam: PRESENT: RRR. ABSENT: gallop GI/Abdominal exam: PRESENT: soft. ABSENT: distended - obese, tenderness Extremities exam: PRESENT: pedal edema - Trace Neurological exam: PRESENT: alert, awake, oriented to situation Skin exam: PRESENT: dry, warm. ABSENT: cyanosis Results Laboratory Results: 03/07/17 06:26 03/07/17 06:26 03/07/17 03/07/17 06:26 06:26 WBC 7.6 RBC 3.29 L Hgb 10.0 L Hct 30.0 L MCV 91 MCH 30.2 MCHC 33.2 RDW 13.1 Plt Count 220 Seg Neutrophils % 51.0 Lymphocytes % 32.6 Monocytes % 11.8 Eosinophils % 3.6 Basophils % 1.0 Absolute Neutrophils 3.9 Absolute Lymphocytes 2.5 Absolute Monocytes 0.9 Absolute Eosinophils 0.3 Absolute Basophils 0.1 Sodium 149.1 H Potassium 4.8 Chloride 112 H Carbon Dioxide 28 Anion Gap 9 BUN 43 H Creatinine 1.68 H Est GFR ( Amer) 37 L Est GFR (Non-Af Amer) 30 L Glucose 97 Calcium 9.7 Impressions: Chest X-Ray 03/04/17 10:18 IMPRESSION: Cardiomegaly with mild vascular congestion. Assessment & Plan - Diagnosis (1) Acute renal failure Qualifiers: Acute renal failure type: unspecified Qualified Code(s): N17.9 - Acute kidney failure, unspecified Is this a current diagnosis for this admission?: Yes (2) UTI (urinary tract infection) Qualifiers: Urinary tract infection type: site unspecified Hematuria presence: without hematuria Qualified Code(s): N39.0 - Urinary tract infection, site not specified Is this a current diagnosis for this admission?: Yes (3) Chronic kidney disease, stage 3 Is this a current diagnosis for this admission?: Yes (4) Hypernatremia Is this a current diagnosis for this admission?: Yes (5) CHF (congestive heart failure) Qualifiers: Congestive heart failure type: diastolic Congestive heart failure chronicity: chronic Qualified Code(s): I50.32 - Chronic diastolic ( congestive) heart failure Is this a current diagnosis for this admission?: Yes (6) CAD (coronary artery disease) Qualifiers: Coronary Disease-Associated Artery/Lesion type: [place] artery [place] vs. transplanted heart: unspecified whether [place] or transplanted heart Associated angina: without angina Qualified Code(s): I25.10 - Atherosclerotic heart disease of [place] coronary artery without angina pectoris Is this a current diagnosis for this admission?: Yes (7) COPD (chronic obstructive pulmonary disease) Qualifiers: COPD type: unspecified COPD Qualified Code(s): J44.9 - Chronic obstructive pulmonary disease, unspecified Is this a current diagnosis for this admission?: Yes (8) Obstructive sleep apnea Is this a current diagnosis for this admission?: Yes (9) Dyslipidemia Is this a current diagnosis for this admission?: Yes (10) Hypothyroidism Qualifiers: Hypothyroidism type: unspecified Qualified Code(s): E03.9 - Hypothyroidism, unspecified Is this a current diagnosis for this admission?: Yes (11) Type I diabetes mellitus Qualifiers: Diabetes mellitus complication status: with neurologic complications Diabetes mellitus complication detail: with unspecified neuropathy Qualified Code(s): E10.40 - Type 1 diabetes mellitus with diabetic neuropathy, unspecified Is this a current diagnosis for this admission?: Yes (12) Depression Qualifiers: Depression Type: unspecified Qualified Code(s): F32.9 - Major depressive disorder, single episode, unspecified Is this a current diagnosis for this admission?: Yes - Time Time Spent with patient: 25-34 minutes - Plan Summary Plan Summary: Continue current antibiotic. Change intravenous fluid to half-normal saline and recheck creatinine in serum sodium. Out of bed to chair and begin physical therapy. I am going to resume the patient's Lasix. Awaiting nephrology evaluation.
[2017-03-07] MEDS: INSULIN GLARGINE,HUM.REC.ANLOG 1,000 UNIT/10 ML UNIT SUBCUT SCH ×2 (10:01→21:12)
[2017-03-07] MEDS: POLYETHYLENE GLYCOL 3350 POWDER 17 GM/1 PACKET PO SCH ×2 (10:04→18:59)
[2017-03-07] MEDS: LANSOPRAZOLE 15 MG TAB.RAP.DR PO SCH (10:05)
[2017-03-07] MEDS: ENOXAPARIN SODIUM INJ 30 MG/0.3 ML DISP.SYRIN SUBCUT SCH (10:05)
[2017-03-07] MEDS: LEVOTHYROXINE SODIUM 0.088 MG TABLET PO SCH (10:05)
[2017-03-07] MEDS: SERTRALINE HCL 50 MG TABLET PO SCH (10:06)
[2017-03-07] MEDS: FAMOTIDINE 20 MG TABLET PO SCH ×2 (10:07→21:11)
[2017-03-07] MEDS: FERROUS SULFATE 325 MG TABLET PO SCH ×2 (10:07→19:01)
[2017-03-07] MEDS: LISINOPRIL 5 MG TABLET PO SCH (10:08)
[2017-03-07] MEDS: ASPIRIN 325 MG TABLET PO SCH (10:08)
[2017-03-07] MEDS: CARVEDILOL 12.5 MG TABLET PO SCH ×2 (10:09→21:11)
[2017-03-07] MEDS: FUROSEMIDE 80 MG TABLET PO SCH (10:13)
[2017-03-07] MEDS: ERTAPENEM SODIUM 0.5 GM in NORMAL SALINE 50 ML IV SCH (15:44)
--- NOTE | 2017-03-07 17:35 | PDOC CONSULTATION ---
Consultation Consult Date: 03/07/17 Attending physician:: LONDON GLASS Consult reason:: I was asked by Dr. Glass from the hospitalist service to see Mrs. Wang due to worsening kidney function. History of Present Illness Admission Date/PCP: 03/04/17 12:25 PANDA RODRIGUEZ History of Present Illness: LORETO JOSHI is a 66 year old female with previous admissions who presents with acute renal failure and a urinary tract infection. Patient reports that over the last one half weeks she's had problems with a nonproductive cough as well as diarrhea. She does have a history of C. difficile in the past. She reported that she's had some chills and was noted have a low-grade fever by EMS. The patient's creatinine was up to 3.5 on admission and was normal just several months ago. She does have a history of chronic renal failure stage III. The patient denies any dysuria or urinary frequency. She denies any hematuria. She denies any back pain. Patient has had problems with congestive heart failure as well as the chronic renal failure and her diuretic dose has been adjusted recently. She was treated for urinary tract infection on admission with IV antibiotics until the current time. She was also hydrated. Upon further questioning today patient said that her diarrhea lasted 3-4 days prior to presentation in the emergency room which is now currently resolved. Her vomiting is also resolved. She denies any abdominal pain. She continues to have cough but unable to expectorate any phlegm. She claims that she presented with some shortness of breath which is currently better and improved. She denies any episodes of dysuria nor hematuria. She does have baseline urinary incontinence. She could not tell me if her urine output was decreased prior to admission. However she admitted that her oral intake of both solids and liquids were diminished few days prior to admission. Patient was taking Lasix 80 mg twice a day supposedly in the [facility]. On admission the patient is kidney function include a BUN of 70 and creatinine of 3.15 with estimated GFR 15 and a potassium of 5.4. Today she has a BUN of 43 creatinine of 1.68 with estimated GFR of 30. Patient had history of acute kidney injury in the past requiring renal replacement therapy. Her kidney function subsequently improved. I saw the patient last January in my office and during that time she had a BUN of 42 creatinine of 1.64 with estimated GFR of around 30 to on 01/19/2017. This was while she was taking Lasix 80 mg twice a day is increased by her dental appliance repairer, Dr. Vigil. She was very swollen in her lower extremities at the time so I actually added metolazone 5 mg for just 1 week. Patient said she noted that some time around that time she has lost 33 pounds due to the increase of her diuretics and her lower extremity edema has improved. Currently she thinks that her lower extremity swelling did not have much change calm compared with when she came in. Today her sodium is a little bit elevated. Dr. Glass on started her on 0.45 normal saline at a maintenance dose of 75 mL an hour as well as restarted her Lasix 80 mg daily. Aside from this patient complains of constipation. She said she is being given iron which constipates here and she is being given Miralax for constipation. Overall though she feels better than when she came in at this point. Past Medical History Cardiac Medical History: Reports: Atrial Fibrillation - Paroxysmal, CHF- Diastolic, Coronary Artery Disease, Hyperlipidemia, Hypertension-primary, Myocardial Infarction, Other - History of junctional bradycardia Pulmonary Medical History: Reports: Chronic Obstructive Pulmonary Disease (COPD) , Pneumonia, Sleep Apnea Neurological Medical History: Reports: Ischemic CVA - Left hemiparesis, Other - Peripheral neuropathy, TIA Endocrine Medical History: Reports: Diabetes Mellitus Type 2, Hypothyroidism, Obesity Complications of Diabetes: Reports: Autonomic Neuropathy, Nephropathy Renal/ Medical History: Reports: Chronic Kidney Disease Stage III, Other - Episode of TIFFANIE requiring CRRT Malignancy Medical History: Reports: Cervical Cancer Musculoskeltal Medical History: Reports: Arthritis, Gout Psychiatric Medical History: Reports: Depression Infectious Medical History: Reports: Clostridium Difficile Hematology Medical History: Reports Anemia of Chronic Kidney Disease, Reports Iron Deficiency Anemia Past Surgical History Past Surgical History: Reports: Appendectomy, Section, Cholecystectomy , Herniorrhaphy, Other - Breast cyst, history of fecal transplant for C. difficile Social History Information Source: Patient, [facility] Lives with: Assisted Smoking Status: Former Smoker Last Time Smoked: 19 YEARS Frequency of Alcohol Use: None Hx Recreational Drug Use: No Drugs: None Hx Prescription Drug Abuse: No - Advance Directive Resuscitation Status: Full Code Family History Family History: DM - Mother and brother, Hypertension - Brother, Other - Mother Parental Family History Reviewed: Yes Children Family History Reviewed: Unknown Sibling(s) Family History Reviewed.: Yes Medication/Allergy Home Medications: Aspirin [Aspirin 325 mg Tablet] 325 mg PO DAILY 08/16/16 Atorvastatin Calcium [Lipitor 20 mg Tablet] 20 mg PO QHS 08/16/16 Ergocalciferol (Vitamin D2) [Drisdol] 50,000 unit PO TUFR 08/16/16 Fenofibrate Nanocrystallized [Tricor] 145 mg PO QHS 08/16/16 Ferrous Sulfate [Ferrousul] 325 mg PO BID 08/16/16 Insulin Glargine,Hum.rec.anlog [Lantus Insulin 100 Unit/1 ml 10 ml] 50 units SUBCUT BID 08/16/16 Levothyroxine Sodium [Synthroid 0.088 mg Tablet] 88 mcg PO DAILY 08/16/16 Lisinopril [Prinivil 2.5 mg Tablet] 2.5 mg PO DAILY 08/16/16 Omeprazole Magnesium [Prilosec Otc] 20 mg PO DAILY 08/16/16 Ondansetron HCl [Zofran 4 mg Tablet] 4 mg PO Q6HP PRN 08/16/16 Primidone [Mysoline 50 mg Tablet] 25 mg PO QHS 08/16/16 Sertraline HCl [Zoloft] 25 mg PO DAILY 08/16/16 Tramadol HCl [Ultram] 50 mg PO TIDP PRN 08/16/16 Carvedilol [Coreg 12.5 mg Tablet] 12.5 mg PO Q12 03/04/17 Furosemide [Lasix] 80 mg PO DAILY 03/04/17 Insulin Lispro [Humalog Insulin 100 Unit/1 ml 3 ml Vial] 0 unit SUBCUT .SLD SCALE 03/04/17 Levalbuterol HCl [Xopenex Neb 1.25 mg/3 ml Ampul] 1.25 mg NEB [id number] PRN Polyethylene Glycol 3350 [Miralax Powder 17 gm/Packet] 1 packet PO BID 03/04/17 Pregabalin [Lyrica 75 mg Capsule] 75 mg PO Q8 03/04/17 Allergies/Adverse Reactions: No Known Allergies Allergy (Verified 04/07/16 16:28) Review of Systems All systems: reviewed and no additional remarkable complaints except as stated Review of Systems: Constitutional: ABSENT: chills, fatigue, fever(s), headache(s), weight gain, weight loss Eyes: ABSENT: visual disturbances Ears: ABSENT: hearing changes Cardiovascular: ABSENT: chest pain, dyspnea on exertion, orthropnea, palpitations, admits edema Respiratory: ABSENT: hemoptysis; admits cough, dyspnea Gastrointestinal: ABSENT: abdominal pain, diarrhea, hematemesis, hematochezia, nausea, vomiting; admits constipation Genitourinary: ABSENT: dysuria, hematuria, admits incontinence Musculoskeletal: ABSENT: joint swelling Integumentary: ABSENT: rash, wounds Neurological: ABSENT: abnormal gait, abnormal speech, confusion, dizziness, focal weakness, numbness, syncope Psychiatric: ABSENT: anxiety; admits depression Endocrine: ABSENT: cold intolerance, heat intolerance, polydipsia, polyuria Hematologic/Lymphatic: ABSENT: easy bleeding, easy bruising, lymphadenopathy Physical Exam Vital Signs: Temp Pulse Resp BP Pulse Ox 97.6 F 65 19 139/51 H 98 03/07/17 15:04 03/07/17 15:04 03/07/17 15:04 03/07/17 15:04 03/07/17 15:04 Intake & Output 03/06/17 03/07/17 03/08/17 06:59 06:59 06:59 Intake Total 4074 3357 360 Output Total 900 Balance 4074 3357 -540 Weight 139.5 kg 140.5 kg Exam: General appearance: no acute distress, cooperative, well-developed, well- nourished Head exam: PRESENT: atraumatic, normocephalic Eye exam: PRESENT: Conjunctiva pale, EOMI, PERRLA. ABSENT: conjunctival injection, scleral icterus Mouth exam: PRESENT: moist, neck supple, tongue midline Neck exam: PRESENT: full ROM. ABSENT: carotid bruit, JVD, lymphadenopathy, thyromegaly Respiratory exam: PRESENT: Diminished to auscultation bilaterally. ABSENT: rales, rhonchi, stridor, wheezes Cardiovascular exam: PRESENT: RRR, +S1, +S2. Grade 2/6 systolic murmur Pulses: PRESENT: normal radial pulses, normal dorsalis pedis pulses GI/Abdominal exam: PRESENT: normal bowel sounds, soft. ABSENT: guarding, mass, tenderness Rectal exam: deferred Extremities exam: PRESENT: full ROM. Grade 1 bilateral lower extremity pedal edema Musculoskeletal: PRESENT: full ROM. ABSENT: deformity Neurological exam: PRESENT: alert, Awake, Oriented to person, Oriented to place , Oriented to time, reflexes normal, CN II-XII grossly intact. ABSENT: motor sensory deficit Psychiatric exam: PRESENT: appropriate affect, normal mood. ABSENT: homicidal ideation, suicidal ideation Skin exam: PRESENT: intact, dry, warm. ABSENT: rash Results Laboratory Results: 03/07/17 06:26 03/07/17 06:26 03/07/17 03/07/17 06:26 06:26 WBC 7.6 RBC 3.29 L Hgb 10.0 L Hct 30.0 L MCV 91 MCH 30.2 MCHC 33.2 RDW 13.1 Plt Count 220 Seg Neutrophils % 51.0 Lymphocytes % 32.6 Monocytes % 11.8 Eosinophils % 3.6 Basophils % 1.0 Absolute Neutrophils 3.9 Absolute Lymphocytes 2.5 Absolute Monocytes 0.9 Absolute Eosinophils 0.3 Absolute Basophils 0.1 Sodium 149.1 H Potassium 4.8 Chloride 112 H Carbon Dioxide 28 Anion Gap 9 BUN 43 H Creatinine 1.68 H Est GFR ( Amer) 37 L Est GFR (Non-Af Amer) 30 L Glucose 97 Calcium 9.7 Impressions: Chest X-Ray 03/04/17 10:18 IMPRESSION: Cardiomegaly with mild vascular congestion. Assessment & Plan - Diagnosis (1) Acute kidney injury superimposed on chronic kidney disease Is this a current diagnosis for this admission?: YesPlan: Likely due to prerenal azotemia due to diarrhea and decreased oral intake while the patient was on diuretics upon presentation. Currently the patient's kidney function is actually improved, almost at the same level is about 2 months ago. Patient is making urine but not quantified due to being incontinent. Patient does not need any acute renal replacement therapy at this time. Continue to monitor kidney function. (2) Chronic kidney disease, stage 3 Is this a current diagnosis for this admission?: YesPlan: Patient's kidney function is near new baseline. Kidney disease likely due to a combination of diabetes and hypertension. Agree with the reinitiation of Lasix 80 mg daily for now. (3) Hypernatremia Is this a current diagnosis for this admission?: YesPlan: Agree with starting 0.45 normal saline at current rate. Encouraged patient to drink water. (4) Anemia in chronic kidney disease (CKD) Is this a current diagnosis for this admission?: Yes (5) Iron deficiency anemia Is this a current diagnosis for this admission?: YesPlan: We'll check iron panel. While here in the hospitals is probably better off getting IV iron and oral iron because of constipation. (6) Diabetes mellitus, type II Qualifiers: Diabetes mellitus complication detail: with nephropathy Is this a current diagnosis for this admission?: Yes (7) Hypertension Is this a current diagnosis for this admission?: Yes (8) UTI (urinary tract infection) Qualifiers: Urinary tract infection type: acute cystitis Hematuria presence: without hematuria Qualified Code(s): N30.00 - Acute cystitis without hematuria Is this a current diagnosis for this admission?: Yes - Notes Notes: Thank you very much for this consultation. I will follow the patient with you. - Time Time Spent: 50 to 70 Minutes
[2017-03-07] MEDS: FENOFIBRATE NANOCRYSTALLIZED 145 MG TABLET PO SCH (21:11)
[2017-03-07] MEDS: PRIMIDONE 50 MG TABLET PO SCH (21:11)
[2017-03-07] MEDS: ATORVASTATIN CALCIUM 20 MG TABLET PO SCH (21:11)
[2017-03-08] MEDS: PREGABALIN 75 MG CAPSULE PO SCH ×3 (05:43→21:59)
[2017-03-08 06:58] LABS: ANION GAP 11 (5-19); BLOOD UREA NITROGEN 38 mg/dL (7-20); CALCIUM 10.1 mg/dL (8.4-10.2); CARBON DIOXIDE 29 mmol/L (22-30); CHLORIDE 108 mmol/L (98-107); CREATININE RESULT 1.75 mg/dL (0.52-1.25); GLUCOSE 101 mg/dL (75-110); POTASSIUM 5.2 mmol/L (3.6-5.0); SODIUM 148.3 mmol/L (137-145)
[2017-03-08 07:55] LABS: FOLATE 6.96 ng/mL (>2.76)
--- NOTE | 2017-03-08 09:06 | PDOC PROGRESS REPORT ---
Subjective Progress Note for:: 03/08/17 Subjective:: Denies having any diarrhea. No chills or fever. No shortness of breath, chest pain, nausea or vomiting, abdominal pain. Patient generally weak. Patient is from rehabilitation from [facility]. Physical Exam Vital Signs: Temp Pulse Resp BP Pulse Ox 97.9 F 64 16 145/51 H 97 03/08/17 07:23 03/08/17 07:23 03/08/17 07:23 03/08/17 07:23 03/08/17 07:23 Intake & Output 03/07/17 03/08/17 03/09/17 06:59 06:59 06:59 Intake Total 3357 1795 Output Total 900 Balance 3357 895 Weight 140.5 kg 140.5 kg General appearance: PRESENT: no acute distress, cooperative, morbidly obese Head exam: PRESENT: normocephalic Eye exam: PRESENT: EOMI Mouth exam: PRESENT: moist, neck supple Neck exam: ABSENT: JVD Respiratory exam: PRESENT: clear to auscultation emperatriz - Anteriorly bilateral. ABSENT: rhonchi, wheezes Cardiovascular exam: PRESENT: RRR, systolic murmur - Left sternal border, 2/6. ABSENT: gallop GI/Abdominal exam: PRESENT: soft. ABSENT: distended - Morbid obesity, tenderness Neurological exam: PRESENT: alert, awake, oriented to situation Skin exam: PRESENT: dry, warm. ABSENT: cyanosis Results Laboratory Results: 03/07/17 06:26 03/08/17 05:40 03/08/17 03/08/17 05:40 05:40 Retic Count (auto) 2.85 Absolute Retic 0.093 Sodium 148.3 H Potassium 5.2 H Chloride 108 H Carbon Dioxide 29 Anion Gap 11 BUN 38 H Creatinine 1.75 H Est GFR ( Amer) 35 L Est GFR (Non-Af Amer) 29 L Glucose 101 Calcium 10.1 Iron 47.1 TIBC 338 % Saturation 14 Ferritin 131.00 Vitamin B12 405.0 Folate 6.96 Impressions: Chest X-Ray 03/04/17 10:18 IMPRESSION: Cardiomegaly with mild vascular congestion. Assessment & Plan - Diagnosis (1) Acute renal failure Qualifiers: Acute renal failure type: unspecified Qualified Code(s): N17.9 - Acute kidney failure, unspecified Is this a current diagnosis for this admission?: Yes (2) UTI (urinary tract infection) Qualifiers: Urinary tract infection type: site unspecified Hematuria presence: without hematuria Qualified Code(s): N39.0 - Urinary tract infection, site not specified Is this a current diagnosis for this admission?: Yes (3) Chronic kidney disease, stage 3 Is this a current diagnosis for this admission?: Yes (4) Hypernatremia Is this a current diagnosis for this admission?: Yes (5) CHF (congestive heart failure) Qualifiers: Congestive heart failure type: diastolic Congestive heart failure chronicity: chronic Qualified Code(s): I50.32 - Chronic diastolic ( congestive) heart failure Is this a current diagnosis for this admission?: Yes (6) CAD (coronary artery disease) Qualifiers: Coronary Disease-Associated Artery/Lesion type: [place] artery [place] vs. transplanted heart: unspecified whether [place] or transplanted heart Associated angina: without angina Qualified Code(s): I25.10 - Atherosclerotic heart disease of [place] coronary artery without angina pectoris Is this a current diagnosis for this admission?: Yes (7) COPD (chronic obstructive pulmonary disease) Qualifiers: COPD type: unspecified COPD Qualified Code(s): J44.9 - Chronic obstructive pulmonary disease, unspecified Is this a current diagnosis for this admission?: Yes (8) Obstructive sleep apnea Is this a current diagnosis for this admission?: Yes (9) Dyslipidemia Is this a current diagnosis for this admission?: Yes (10) Hypothyroidism Qualifiers: Hypothyroidism type: unspecified Qualified Code(s): E03.9 - Hypothyroidism, unspecified Is this a current diagnosis for this admission?: Yes (11) Type I diabetes mellitus Qualifiers: Diabetes mellitus complication status: with neurologic complications Diabetes mellitus complication detail: with unspecified neuropathy Qualified Code(s): E10.40 - Type 1 diabetes mellitus with diabetic neuropathy, unspecified Is this a current diagnosis for this admission?: Yes (12) Depression Qualifiers: Depression Type: unspecified Qualified Code(s): F32.9 - Major depressive disorder, single episode, unspecified Is this a current diagnosis for this admission?: Yes - Time Time Spent with patient: 25-34 minutes - Plan Summary Plan Summary: Discontinue lisinopril. Give Kayexalate and recheck potassium, continue gentle IV hydration and diuretic. Recheck creatinine in the morning as well. Possible return to [facility] in a.m.
[2017-03-08] MEDS: CARVEDILOL 12.5 MG TABLET PO SCH ×2 (09:53→21:59)
[2017-03-08] MEDS: LANSOPRAZOLE 15 MG TAB.RAP.DR PO SCH (09:54)
[2017-03-08] MEDS: SERTRALINE HCL 50 MG TABLET PO SCH (09:54)
[2017-03-08] MEDS: FAMOTIDINE 20 MG TABLET PO SCH ×2 (09:54→21:59)
[2017-03-08] MEDS: ASPIRIN 325 MG TABLET PO SCH (09:54)
[2017-03-08] MEDS: FUROSEMIDE 80 MG TABLET PO SCH (09:54)
[2017-03-08] MEDS: POLYETHYLENE GLYCOL 3350 POWDER 17 GM/1 PACKET PO SCH ×2 (09:54→18:30)
[2017-03-08] MEDS: LEVOTHYROXINE SODIUM 0.088 MG TABLET PO SCH (09:54)
[2017-03-08] MEDS: ENOXAPARIN SODIUM INJ 30 MG/0.3 ML DISP.SYRIN SUBCUT SCH (09:55)
[2017-03-08] MEDS: FERROUS SULFATE 325 MG TABLET PO SCH (09:55)
[2017-03-08] MEDS ORDERED: SODIUM POLYSTYRENE SULFONATE 15 GM/60 ML PO ONE (10:00)
[2017-03-08] MEDS: INSULIN GLARGINE,HUM.REC.ANLOG 1,000 UNIT/10 ML UNIT SUBCUT SCH ×2 (10:02→21:59)
[2017-03-08] MEDS: ERTAPENEM SODIUM 0.5 GM in NORMAL SALINE 50 ML IV SCH (16:08)
--- NOTE | 2017-03-08 17:16 | PDOC PROGRESS REPORT ---
Subjective Progress Note for:: 03/08/17 Subjective:: Patient tells me that she is feeling better. However she tells me that she started having some diarrhea again. She was given some laxatives because she was constipated couple of days ago so I told her this might just be the effect of those laxatives plus she was also given Kayexalate today. Other than that she denies any nausea or vomiting. She otherwise feels fine. Physical Exam Vital Signs: Temp Pulse Resp BP Pulse Ox 97.9 F 74 18 161/73 H 98 03/08/17 15:43 03/08/17 15:43 03/08/17 15:43 03/08/17 15:43 03/08/17 15:43 Intake & Output 03/07/17 03/08/17 03/09/17 06:59 06:59 06:59 Intake Total 3357 1795 474 Output Total 900 Balance 3357 895 474 Weight 140.5 kg 140.5 kg Exam: General appearance: PRESENT: no acute distress, cooperative, well-developed, well-nourished Head exam: PRESENT: atraumatic, normocephalic Eye exam: PRESENT: conjunctiva pale, PERRLA. ABSENT: scleral icterus Neck exam: ABSENT: JVD Respiratory exam: PRESENT: Diminished breath sounds. ABSENT: crackles, rales, rhonchi, unlabored, wheezes Cardiovascular exam: PRESENT: Regular rate rhythm -+S1, +S2. ABSENT: diastolic murmur, systolic murmur GI/Abdominal exam: PRESENT: normal bowel sounds, soft. ABSENT: guarding, mass, tenderness Extremities exam: Grade 1 bilateral lower extremity pitting edema, unchanged Neurological exam: PRESENT: alert, awake, oriented to person, place and time. Skin exam: PRESENT: dry, warm, Results Laboratory Results: 03/07/17 06:26 03/08/17 16:07 03/08/17 03/08/17 03/08/17 05:40 05:40 16:07 Retic Count (auto) 2.85 Absolute Retic 0.093 Sodium 148.3 H Potassium 5.2 H 4.9 Chloride 108 H Carbon Dioxide 29 Anion Gap 11 BUN 38 H Creatinine 1.75 H Est GFR ( Amer) 35 L Est GFR (Non-Af Amer) 29 L Glucose 101 Calcium 10.1 Iron 47.1 TIBC 338 % Saturation 14 Ferritin 131.00 Vitamin B12 405.0 Folate 6.96 Impressions: Chest X-Ray 03/04/17 10:18 IMPRESSION: Cardiomegaly with mild vascular congestion. Assessment & Plan - Diagnosis (1) Acute kidney injury superimposed on chronic kidney disease Is this a current diagnosis for this admission?: YesPlan: Likely due to prerenal azotemia due to diarrhea and decreased oral intake while the patient was on diuretics upon presentation. Kidney function is significantly changed, currently stable. Continue current management. (2) Chronic kidney disease, stage 3 Is this a current diagnosis for this admission?: YesPlan: Patient's kidney function is near new baseline. Kidney disease likely due to a combination of diabetes and hypertension. Agree with the re-initiation of Lasix 80 mg daily for now. (3) Hypernatremia Is this a current diagnosis for this admission?: YesPlan: Agree with starting 0.45 normal saline at current rate. Encouraged patient to drink water. Slightly improved today. (4) Anemia in chronic kidney disease (CKD) Is this a current diagnosis for this admission?: Yes (5) Iron deficiency anemia Is this a current diagnosis for this admission?: YesPlan: We will discontinue oral iron give the patient a dose of IV Feraheme today. This will avoid constipation. (6) Diabetes mellitus, type II Qualifiers: Diabetes mellitus complication detail: with nephropathy Is this a current diagnosis for this admission?: Yes (7) Hypertension Is this a current diagnosis for this admission?: Yes (8) UTI (urinary tract infection) Qualifiers: Urinary tract infection type: acute cystitis Hematuria presence: without hematuria Qualified Code(s): N30.00 - Acute cystitis without hematuria Is this a current diagnosis for this admission?: Yes (9) Hyperkalemia Is this a current diagnosis for this admission?: YesPlan: Mild. Received Kayexalate today. - Notes Notes: From nephrology standpoint, patient can return to the [facility]. Follow-up in my office as an outpatient. - Time Time with patient: 15-25 minutes
[2017-03-08] MEDS ORDERED: FERUMOXYTOL 510 MG in NORMAL SALINE 100 ML IV ONE (18:30)
[2017-03-08] MEDS: ATORVASTATIN CALCIUM 20 MG TABLET PO SCH (21:58)
[2017-03-08] MEDS: PRIMIDONE 50 MG TABLET PO SCH (21:59)
[2017-03-08] MEDS: FENOFIBRATE NANOCRYSTALLIZED 145 MG TABLET PO SCH (21:59)
[2017-03-09] MEDS: PREGABALIN 75 MG CAPSULE PO SCH ×2 (05:44→13:41)
[2017-03-09 06:54] LABS: ANION GAP 12 (5-19); BLOOD UREA NITROGEN 36 mg/dL (7-20); CALCIUM 10.4 mg/dL (8.4-10.2); CARBON DIOXIDE 30 mmol/L (22-30); CHLORIDE 106 mmol/L (98-107); CREATININE RESULT 1.69 mg/dL (0.52-1.25); GLUCOSE 79 mg/dL (75-110); POTASSIUM 4.7 mmol/L (3.6-5.0); SODIUM 148.3 mmol/L (137-145)
[2017-03-09] MEDS: SERTRALINE HCL 50 MG TABLET PO SCH (10:33)
[2017-03-09] MEDS: LEVOTHYROXINE SODIUM 0.088 MG TABLET PO SCH (10:33)
[2017-03-09] MEDS: FAMOTIDINE 20 MG TABLET PO SCH (10:34)
[2017-03-09] MEDS: LANSOPRAZOLE 15 MG TAB.RAP.DR PO SCH (10:34)
[2017-03-09] MEDS: CARVEDILOL 12.5 MG TABLET PO SCH (10:34)
[2017-03-09] MEDS: ENOXAPARIN SODIUM INJ 30 MG/0.3 ML DISP.SYRIN SUBCUT SCH (10:34)
[2017-03-09] MEDS: FUROSEMIDE 80 MG TABLET PO SCH (10:34)
[2017-03-09] MEDS: ASPIRIN 325 MG TABLET PO SCH (10:34)
[2017-03-09] MEDS: INSULIN GLARGINE,HUM.REC.ANLOG 1,000 UNIT/10 ML UNIT SUBCUT SCH (10:38)
[2017-03-09] MEDS: POLYETHYLENE GLYCOL 3350 POWDER 17 GM/1 PACKET PO SCH ×2 (10:43→17:19)
--- NOTE | 2017-03-09 14:30 | PDOC TRANSFER SUMMARY ---
General - Admit/Disc Date/PCP Admission Date/Primary Care Provider: 03/04/17 12:25 PANDA RODRIGUEZ Discharge Date: 03/09/17 - Discharge Diagnosis (1) Acute renal failure Is this a current diagnosis for this admission?: Yes (2) UTI (urinary tract infection) Is this a current diagnosis for this admission?: Yes (3) Chronic kidney disease, stage 3 Is this a current diagnosis for this admission?: Yes (4) Hypernatremia Is this a current diagnosis for this admission?: Yes (5) CHF (congestive heart failure) Is this a current diagnosis for this admission?: Yes (6) CAD (coronary artery disease) Is this a current diagnosis for this admission?: Yes (7) COPD (chronic obstructive pulmonary disease) Is this a current diagnosis for this admission?: Yes (8) Obstructive sleep apnea Is this a current diagnosis for this admission?: Yes (9) Dyslipidemia Is this a current diagnosis for this admission?: Yes (10) Hypothyroidism Is this a current diagnosis for this admission?: Yes (11) Type I diabetes mellitus Is this a current diagnosis for this admission?: Yes (12) Depression Is this a current diagnosis for this admission?: Yes - Additional Information Resuscitation Status: Full Code Discharge Diet: Cardiac - low-fat low-salt, Diabetic - no concentrated sweets Discharge Activity: Activity As Tolerated, Balance Activity w/Rest, Weigh Daily Home Medications: Aspirin [Aspirin 325 mg Tablet] 325 mg PO DAILY 08/16/16 Atorvastatin Calcium [Lipitor 20 mg Tablet] 20 mg PO QHS 08/16/16 Fenofibrate Nanocrystallized [Tricor] 145 mg PO QHS 08/16/16 Ferrous Sulfate [Ferrousul] 325 mg PO BID 08/16/16 Insulin Glargine,Hum.rec.anlog [Lantus Insulin 100 Unit/1 ml 10 ml] 50 units SUBCUT BID 08/16/16 Levothyroxine Sodium [Synthroid 0.088 mg Tablet] 88 mcg PO DAILY 08/16/16 Omeprazole Magnesium [Prilosec Otc] 20 mg PO DAILY 08/16/16 Ondansetron HCl [Zofran 4 mg Tablet] 4 mg PO Q6HP PRN 08/16/16 Primidone [Mysoline 50 mg Tablet] 25 mg PO QHS 08/16/16 Sertraline HCl [Zoloft] 25 mg PO DAILY 08/16/16 Carvedilol [Coreg 12.5 mg Tablet] 12.5 mg PO Q12 03/04/17 Furosemide [Lasix] 80 mg PO DAILY 03/04/17 Insulin Lispro [Humalog Insulin (Lispro) 100 unit/mL] 0 unit SUBCUT .SLD SCALE 03/04/17 Levalbuterol HCl [Xopenex Neb 1.25 mg/3 ml Ampul] 1.25 mg NEB RTQ8HP PRN Pregabalin [Lyrica 75 mg Capsule] 75 mg PO Q8 03/04/17 Polyethylene Glycol 3350 [Miralax Powder 17 gm/Packet] 1 packet PO DAILY #30 Tramadol HCl [Ultram 50 mg Tablet] 50 mg PO TIDP PRN #20 tablet 03/09/17 Additional Information: Continue home CPAP as previously taken, continue home oxygen at units 2 L nasal cannula. Repeat calcium level in one week with primary care physician History of Present Illness Admission Date/PCP: 03/04/17 12:25 PANDA RODRIGUEZ Patient complains of: Diarrhea and coughing History of Present Illness: LORETO JOSHI is a 66 year old female with previous admissions who presents with acute renal failure and a urinary tract infection. Patient reports that over the last one half weeks she's had problems with a nonproductive cough as well as diarrhea. She does have a history of C. difficile in the past. She reported that she's had some chills and was noted have a low-grade fever by EMS. The patient's creatinine was up to 3.5 on admission and was normal just several months ago. She does have a history of chronic renal failure stage III. The patient denies any dysuria or urinary frequency. She denies any hematuria. She denies any back pain. Patient has had problems with congestive heart failure as well as the chronic renal failure and her diuretic dose has been adjusted recently. She was treated for urinary tract infection on admission with IV antibiotics until the current time. She was also hydrated. Upon further questioning today patient said that her diarrhea lasted 3-4 days prior to presentation in the emergency room which is now currently resolved. Her vomiting is also resolved. She denies any abdominal pain. She continues to have cough but unable to expectorate any phlegm. She claims that she presented with some shortness of breath which is currently better and improved. She denies any episodes of dysuria nor hematuria. She does have baseline urinary incontinence. She could not tell me if her urine output was decreased prior to admission. However she admitted that her oral intake of both solids and liquids were diminished few days prior to admission. Patient was taking Lasix 80 mg twice a day supposedly in the detention. On admission the patient is kidney function include a BUN of 70 and creatinine of 3.15 with estimated GFR 15 and a potassium of 5.4. Today she has a BUN of 43 creatinine of 1.68 with estimated GFR of 30. Patient had history of acute kidney injury in the past requiring renal replacement therapy. Her kidney function subsequently improved. I saw the patient last January in my office and during that time she had a BUN of 42 creatinine of 1.64 with estimated GFR of around 30 to on 01/19/2017. This was while she was taking Lasix 80 mg twice a day is increased by her link trainer operator, Dr. Vigil. She was very swollen in her lower extremities at the time so I actually added metolazone 5 mg for just 1 week. Patient said she noted that some time around that time she has lost 33 pounds due to the increase of her diuretics and her lower extremity edema has improved. Currently she thinks that her lower extremity swelling did not have much change calm compared with when she came in. Today her sodium is a little bit elevated. Dr. Glass on started her on 0.45 normal saline at a maintenance dose of 75 mL an hour as well as restarted her Lasix 80 mg daily. Aside from this patient complains of constipation. She said she is being given iron which constipates here and she is being given Miralax for constipation. Overall though she feels better than when she came in at this point. Hospital Course Hospital Course: The patient was admitted to telemetry. Patient was started on intravenous fluid. She had acute renal failure on top of chronic kidney disease. Chest x- ray did reveal some congestive changes. Nephrology was consulted for questionable dialysis, patient was resumed back on her diuretics and urine output improved and her shortness of breath likewise improved. Her creatinine likewise improved. Patient had mild hyperkalemia given Kayexalate. Her RACHAEL inhibitor was discontinued. However in terms of the diarrhea it has resolved. She was however found to UTI and had prior history of ESBL. She has no indwelling Moreira catheter. She was begun on broad-spectrum antibiotic with carbapenem. Urine culture did grow Escherichia coli but no ESBL was noted. Patient therefore received appropriate treatment and completed antibiotics for UTI. Patient improved. Shortness of breath resolve. On presentation it was reported she had mild fever but she has been afebrile. Her diarrhea likewise resolved. Creatinine improved. Hyperkalemia resolved. Her calcium level noted to increase however and therefore his vitamin D was discontinued. She was anemic but on monitoring it was stable. She was given IV iron by nephrology service. The rest of the hospital stays unremarkable. She was transferred back to [facility] for continued subacute rehabilitation. Physical Exam Vital Signs: Temp Pulse Resp BP Pulse Ox 98.0 F 80 16 135/48 H 96 03/09/17 08:18 03/09/17 09:50 03/09/17 09:50 03/09/17 08:18 03/09/17 09:50 Intake & Output 03/08/17 03/09/17 03/10/17 06:59 06:59 06:59 Intake Total 1795 3539 Output Total 900 Balance 895 3539 Weight 140.5 kg 140.5 kg General appearance: PRESENT: no acute distress, obese Head exam: PRESENT: normocephalic Eye exam: PRESENT: EOMI Mouth exam: PRESENT: moist, neck supple Neck exam: ABSENT: JVD Respiratory exam: PRESENT: clear to auscultation emperatriz - Anteriorly. ABSENT: rhonchi, wheezes Cardiovascular exam: PRESENT: RRR. ABSENT: gallop GI/Abdominal exam: PRESENT: normal bowel sounds, soft Extremities exam: PRESENT: other - Trace edema Neurological exam: PRESENT: alert, awake, oriented to person, oriented to place , oriented to time, oriented to situation Skin exam: PRESENT: dry, warm. ABSENT: cyanosis Results Laboratory Results: 03/07/17 06:26 03/09/17 05:49 03/08/17 03/08/17 03/09/17 05:40 16:07 05:49 Sodium 148.3 H Potassium 4.9 4.7 Chloride 106 Carbon Dioxide 30 Anion Gap 12 BUN 36 H Creatinine 1.69 H Est GFR ( Amer) 37 L Est GFR (Non-Af Amer) 30 L Glucose 79 Calcium 10.4 H Transferrin 275 Impressions: Chest X-Ray 03/04/17 10:18 IMPRESSION: Cardiomegaly with mild vascular congestion. Transfer Plan - Disposition Transfer Plan: Transfer back to [facility] for continued rehabilitation. - Time Spent with Patient Time spent with patient: Less than 30 Minutes Qualifiers PATEINT BEING DISCHARGED WITH ANY OF THE FOLLOWING DIAGNOSIS?: No Plan Discharge Plan: Appointment with primary care physician in one week. Appointment with nephrology Dr. Day and 1-2 weeks. Time Spent: Less than 30 Minutes
[2017-03-09] MEDS: ERTAPENEM SODIUM 0.5 GM in NORMAL SALINE 50 ML IV SCH (17:19)
[2017-03-09 17:23] VITALS: BP 128/69
[2017-03-10] MEDS ORDERED: ERGOCALCIFEROL (VITAMIN D2) 50000 UNIT (1.25 MG) CAPSULE PO SCH (10:00)
== END 2017-03-09 16:38 | DRG 683 ==
LOC: ER 09:38 → UNDOADMIN 12:09 → EH 12:09 → 5 18:16
PROVIDERS: ADMIT Internal Medicine; ATTEND Internal Medicine
DX: N17.9 Acute kidney failure, unspecified (principal); N39.0 Urinary tract infection, site not specified; Z68.43 Body mass index [BMI] 50.0-59.9, adult; I13.0 Hypertensive heart and chronic kidney disease with heart failure and stage 1 through stage 4 chronic kidney disease, or unspecified chronic kidney disease; A04.7 Enterocolitis due to Clostridium difficile; E87.0 Hyperosmolality and hypernatremia; I50.32 Chronic diastolic (congestive) heart failure; E11.22 Type 2 diabetes mellitus with diabetic chronic kidney disease; N18.3 Chronic kidney disease, stage 3 (moderate); E03.9 Hypothyroidism, unspecified; E78.5 Hyperlipidemia, unspecified; E87.5 Hyperkalemia; I25.10 Atherosclerotic heart disease of native coronary artery without angina pectoris; D50.9 Iron deficiency anemia, unspecified; D63.1 Anemia in chronic kidney disease; J44.9 Chronic obstructive pulmonary disease, unspecified; B96.20 Unspecified Escherichia coli [E. coli] as the cause of diseases classified elsewhere; G47.33 Obstructive sleep apnea (adult) (pediatric); G62.9 Polyneuropathy, unspecified; E66.01 Morbid (severe) obesity due to excess calories; Z79.82 Long term (current) use of aspirin; Z79.4 Long term (current) use of insulin; Z79.899 Other long term (current) drug therapy
CPT/HCPCS: 36415; 51701; 71010; 80048; 80053; 81001; 82550; 82553; 82607; 82728; 82746; 82962; 83540; 83550; 83880; 84132; 84466; 84484; 85025; 85027; 85045; 87040; 87086; 87088; 87186; 93005; 93010; 93971; 94640; 94660; 99285; G8978-GP; G8979-GP; J0696; J1335; J1650; J1815; J3490; J7030; J7620; Q0138

== ENCOUNTER 2017-04-02 07:02 | Inpatient (IN) | payer MEDICARE, MEDICAID ==
[2017-04-02] MEDS ORDERED: NORMAL SALINE 1000 ML 1,000 ML IV ONE (07:20)
[2017-04-02] MEDS ORDERED: ACETAMINOPHEN 325 MG SUPP.RECT PR ONE (07:21)
[2017-04-02] MEDS ORDERED: CEFAZOLIN 1 GM/D5W RTU 50 ML IV ONE (07:21)
[2017-04-02] MEDS ORDERED: VANCOMYCIN HCL INJ 1000 MG VIAL IV ONE (07:22)
--- NOTE | 2017-04-02 07:35 | ER Document Report ---
ED General - General Chief Complaint: Altered Mental Status Stated Complaint: ALTERED MENTAL STATUS Time Seen by Provider: 04/02/17 07:17 Mode of Arrival: Medic Information source: Relative, Outside Facility Records Notes: Pt is a 66 year old female who presents to the ER today via EMS from [facility] for altered mental status this morning. Pt was fine last night per son, and this morning pressed the call penaloza saying she didn't feel well, and when they came in she was altered, not knowing who or where she was and unable to answer any questions. She has an extensive history including diabetes, CHF, COPD, multiple strokes and 2 heart attacks, urosepsis multiple times, and according to the son she has coded 4 times, Usually when she becomes septic. TRAVEL OUTSIDE OF THE [place] IN LAST 30 DAYS: No - Related Data Allergies/Adverse Reactions: No Known Allergies Allergy (Verified 04/07/16 16:28) Past Medical History - General Information source: Relative, Outside Facility Records - Social History Smoking Status: Former Smoker Family History: None - Past Medical History Cardiac Medical History: Reports: Hx Atrial Fibrillation - Paroxysmal, Hx Congestive Heart Failure, Hx Coronary Artery Disease, Hx Heart Attack, Hx Hypercholesterolemia, Hx Hypertension Denies: Hx DVT, Hx Pulmonary Embolism Pulmonary Medical History: Reports: Hx COPD, Hx Pneumonia, Hx Sleep Apnea Denies: Hx Asthma, Hx Bronchitis Neurological Medical History: Denies: Hx Cerebrovascular Accident, Hx Seizures Endocrine Medical History: Reports: Hx Diabetes Mellitus Type 1, Hx Diabetes Mellitus Type 2, Hx Hypothyroidism. Denies: Hx Hyperthyroidism Malignancy Medical History: Reports: Hx Cervical Cancer GI Medical History: Denies: Hx Cirrhosis, Hx Hepatitis Musculoskeltal Medical History: Reports Hx Arthritis, Reports Hx Gout Skin Medical History: Denies Hx Eczema, Denies Hx Psoriasis Psychiatric Medical History: Reports: Hx Depression Infectious Medical History: Reports: Hx C-Diff. Denies: Hx Hepatitis Past Surgical History: Reports: Hx Abdominal Surgery - umbilical hernia, Hx Appendectomy, Hx Section, Hx Cholecystectomy, Hx Herniorrhaphy, Other - Breast cyst, history of fecal transplant for C. difficile. Denies: Hx Hysterectomy - Immunizations Hx Diphtheria, Pertussis, Tetanus Vaccination: Yes Hx Pneumococcal Vaccination: 08/06/15 Review of Systems - Review of Systems Constitutional: See HPI, Fever EENT: No symptoms reported Cardiovascular: No symptoms reported Respiratory: See HPI, Short of breath Gastrointestinal: No symptoms reported Genitourinary: See HPI Female Genitourinary: No symptoms reported Musculoskeletal: No symptoms reported Skin: No symptoms reported Hematologic/Lymphatic: No symptoms reported Neurological/Psychological: No symptoms reported Physical Exam - Vital signs Vitals: Pulse Ox 94 04/02/17 07:10 - Notes Notes: PHYSICAL EXAMINATION: GENERAL: Altered, ill-appearing, in mild acute distress. HEAD: Atraumatic, normocephalic. EYES: Pupils equal round and reactive to light, extraocular movements intact, sclera anicteric, conjunctiva are normal. ENT: airway patent NECK: Normal range of motion, supple without lymphadenopathy LUNGS: crackles in lower lung bases, working hard to breathe, No wheezes HEART: Tachycardia with regular rhythm, without murmurs ABDOMEN: Soft, no tenderness. No guarding, no rebound BACK: no vertebral tenderness, normal ROM GI/: no CVA tenderness EXTREMITIES: Normal range of motion, no pitting edema. No cyanosis. NEUROLOGICAL: Cranial nerves grossly intact. Normal sensory/motor exams. PSYCH:not alert to person, place or time, not answering questions, in and out of consciousness SKIN: Warm, Dry, normal turgor, no rashes or lesions noted Course - Re-evaluation Re-evalutation: 04/02/17 09:04 pt has 55 WBC on UA and small leukocytes. CT head normal, EKG reveals tachycardia but no evidence of ischemia. Dr. Restrepo, hospitalist agrees to admit at this time due to urosepsis, labwork actually doesn't look too bad today, normal WBC, normal lactic. Chest x ray reveals mild vascular congestion, pt tolerating bipap well as she was dipping down to 85% on 3-4L nasal cannula. 04/02/17 09:11 - Vital Signs Vital signs: Temp Pulse Resp BP Pulse Ox 104.2 F H 179/71 H 91 L 04/02/17 08:20 04/02/17 07:31 04/02/17 07:31 - Laboratory Result Diagrams: 04/02/17 07:10 04/02/17 07:10 Laboratory results interpreted by me: 04/02/17 04/02/17 04/02/17 07:10 07:10 08:00 Hgb 11.4 L Hct 34.3 L RDW 14.6 H Seg Neutrophils % 82.6 H Lymphocytes % 11.8 L BUN 47 H Creatinine 1.77 H Est GFR ( Amer) 35 L Est GFR (Non-Af Amer) 29 L Glucose 166 H Direct Bilirubin 0.7 H AST 50 H Urine Protein 100 H Urine Blood MODERATE H Ur Leukocyte Esterase SMALL H Critical Care Note - Critical Care Note Total time excluding time spent on procedures (mins): 45 - 45 minutes spent in critical care time with patient, consulted with attending, speaking with family , placing orders and evaluating tests and labs. Discharge - Discharge Clinical Impression: Sepsis, UTI (urinary tract infection), CHF (congestive heart failure) Condition: Fair Disposition: ADMITTED INPATIENT Admitting Provider: Hospitalist Unit Admitted: IMCU Referrals: PANDA RODRIGUEZ MD [Primary Care Provider] - Follow up as needed
[2017-04-02 07:37] LABS: ABSOLUTE BASOPHILS # (AUTO) 0.1 10^3/uL (0.0-0.2); ABSOLUTE LYMPHOCYTES (AUTO) 1.1 10^3/uL (0.5-4.7); ABSOLUTE MONOCYTES (AUTO) 0.4 10^3/uL (0.1-1.4); BASOPHILS % (AUTO) 0.6 % (0-2); EOSINOPHILS % (AUTO) 0.5 % (0-6); HEMATOCRIT 34.3 % (36.0-47.0); HEMOGLOBIN 11.4 g/dL (12.0-15.5); HGB HCT DIFFERENCE -0.1; LYMPHOCYTES % (AUTO) 11.8 % (13-45); MEAN CORPUSCULAR HEMOGLOBIN 30.6 pg (27.0-33.4); MEAN CORPUSCULAR HGB CONC 33.2 g/dL (32.0-36.0); MEAN CORPUSCULAR VOLUME 92 fl (80-97); MONOCYTES % (AUTO) 4.5 % (3-13); RED BLOOD COUNT 3.72 10^6/uL (3.72-5.28); RED CELL DISTRIBUTION WIDTH 14.6 % (11.5-14.0); SEGMENTED NEUTROPHILS % (AUTO) 82.6 % (42-78); WHITE BLOOD COUNT 9.6 10^3/uL (4.0-10.5)
[2017-04-02 07:48] LABS: VENOUS BLOOD BASE EXCESS 3.5 mmol/L; VENOUS BLOOD HCO3 29.1 mmol/L (20-32); VENOUS BLOOD PCO2 46.9 mmHg (35-63); VENOUS BLOOD PH 7.41 (7.30-7.42)
[2017-04-02 07:51] LABS: ALANINE AMINOTRANSFERASE 36 U/L (9-52); ALBUMIN 3.9 g/dL (3.5-5.0); ALKALINE PHOSPHATASE 65 U/L (38-126); ANION GAP 14 (5-19); ASPARTATE AMINO TRANSFERASE 50 U/L (14-36); BILIRUBIN,DIRECT 0.7 mg/dL (0.0-0.4); BLOOD UREA NITROGEN 47 mg/dL (7-20); CALCIUM 10.1 mg/dL (8.4-10.2); CARBON DIOXIDE 28 mmol/L (22-30); CHLORIDE 102 mmol/L (98-107); CREATINE KINASE 81 U/L (30-135); CREATININE RESULT 1.77 mg/dL (0.52-1.25); GLUCOSE 166 mg/dL (75-110); POTASSIUM 4.3 mmol/L (3.6-5.0); SODIUM 143.6 mmol/L (137-145); TOTAL PROTEIN 7.6 g/dL (6.3-8.2)
--- NOTE | 2017-04-02 08:03 | RADIOLOGY REPORT (SQ) ---
EXAM DESCRIPTION: CHEST SINGLE VIEW COMPLETED DATE/TIME: 04/02/2017 7:54 am REASON FOR STUDY: crackles in lungs, hypoxia, ams COMPARISON: 03/04/2017 EXAM PARAMETERS: NUMBER OF VIEWS: One view. TECHNIQUE: Single frontal radiographic view of the chest acquired. RADIATION DOSE: NA LIMITATIONS: None. FINDINGS: LUNGS AND PLEURA: No opacities, masses or pneumothorax. No pleural effusion. MEDIASTINUM AND HILAR STRUCTURES: No masses. Contour normal. HEART AND VASCULAR STRUCTURES: Heart is enlarged with mild central vascular prominence. BONES: No acute findings. HARDWARE: None in the chest. OTHER: No other significant finding. IMPRESSION: Cardiomegaly mild vascular congestion. Similar findings were present on prior study. TECHNICAL DOCUMENTATION: JOB ID: [id number]
--- NOTE | 2017-04-02 08:03 | RADIOLOGY REPORT (SQ) ---
EXAM DESCRIPTION: CT HEAD WITHOUT COMPLETED DATE/TIME: 04/02/2017 7:53 am REASON FOR STUDY: crackles in lungs, hypoxia, ams COMPARISON: 06/07/2016 TECHNIQUE: Axial images acquired through the brain without intravenous contrast. Images reviewed wi th bone, brain and subdural windows. Images stored on PACS. All CT scanners at this facility use dose modulation, iterative reconstruction, and/or weight based d osing when appropriate to reduce radiation dose to as low as reasonably achievable (ALARA). [facility]: Dose Right [facility]: CareDose [facility]: Dose Right [facility]: Teradose 4D [facility]: [employer] RADIATION DOSE: 64.61 mGy. LIMITATIONS: None. FINDINGS: VENTRICLES: Prominent. CEREBRUM: No masses. No hemorrhage. No midline shift. Areas of low density in the white matter mos t likely due to chronic micro-vascular ischemic change. No evidence for acute infarction. CEREBELLUM: No masses. No hemorrhage. No alteration of density. No evidence for acute infarction. EXTRAAXIAL SPACES: Mild age-related involutional change. No fluid collections. No masses. ORBITS AND GLOBE: No intra- or extraconal masses. Normal contour of globe without masses. CALVARIUM: No fracture. PARANASAL SINUSES: There is mucosal thickening in the left maxillary sinus. SOFT TISSUES: No mass or hematoma. OTHER: No other significant finding. IMPRESSION: MILD CHRONIC CHANGES OF ATROPHY AND MICROVASCULAR ISCHEMIA. NO ACUTE PROCESS. TECHNICAL DOCUMENTATION: JOB ID: [id number] Quality ID # [id number]: Final reports with documentation of one or more dose reduction techniques (e.g., Au tomated exposure control, adjustment of the mA and/or kV according to patient size, use of iterative reconstruction technique) 2010 [employer]- All Rights Reserved
[2017-04-02 08:07] LABS: CREATINE KINASE MB < 0.22 ng/mL (<4.55)
[2017-04-02 08:10] LABS: TROPONIN I 0.042 ng/mL
[2017-04-02 08:46] LABS: AMORPHOUS SEDIMENT,URINE TRACE /HPF; APPEARANCE,URINE CLOUDY; BILIRUBIN,URINE NEGATIVE (NEGATIVE); GLUCOSE, URINE NEGATIVE (NEGATIVE); KETONES,URINE NEGATIVE (NEGATIVE); LEUKOCYTE ESTERASE,URINE SMALL (NEGATIVE); NITRITE,URINE NEGATIVE (NEGATIVE); PROTEIN,URINE 100 mg/dL (NEGATIVE); URINE SPECIFIC GRAVITY 1.011; UROBILINOGEN,URINE NEGATIVE mg/dL (<2.0)
[2017-04-02 08:52] LABS: URINE BARBITURATES SCREEN UNCONFIRMED POSITIVE; URINE METHADONE SCREEN NEGATIVE; URINE OPIATES LOW NEGATIVE; URINE PHENCYCLIDINE SCREEN NEGATIVE
[2017-04-02] MEDS ORDERED: IMIPENEM/CILASTATIN SODIUM INJ 500 MG VIAL IV ONE (08:57)
--- NOTE | 2017-04-02 09:25 | EKG REPORT ---
SEVERITY:- ABNORMAL ECG - SINUS TACHYCARDIA ATRIAL PREMATURE COMPLEX NONSPECIFIC T ABNORMALITIES, LATERAL LEADS : Confirmed by: Serg Javier MD 02-Apr-2017 09:24:55
[2017-04-02] MEDS ORDERED: ONDANSETRON HCL INJ/PF 4 MG/2 ML SDV IV PRN (09:38)
[2017-04-02] MEDS ORDERED: ALBUTEROL SULFATE 0.083% NEB 2.5 MG/3 ML AMPUL NEB PRN (09:38)
[2017-04-02] MEDS ORDERED: TRAMADOL HCL 50 MG TABLET PO PRN (09:52)
[2017-04-02] MEDS ORDERED: DEXTROSE 40% GEL 15 GM TUBE PO PRN ×2 (09:58)
[2017-04-02] MEDS ORDERED: DEXTROSE 50%-WATER 25 GM/50 ML DISP.SYRIN IV PRN ×2 (09:58)
[2017-04-02] MEDS ORDERED: GLUCAGON,HUMAN RECOMB 1 MG INJ IM PRN (09:58)
[2017-04-02] MEDS ORDERED: (PENDING PHARMACY ID) (Sertraline Hcl [Zoloft] 25 MG) PO SCH (10:00)
[2017-04-02 10:02] LABS: ANION GAP 10 (5-19); BLOOD UREA NITROGEN 47 mg/dL (7-20); CALCIUM 9.5 mg/dL (8.4-10.2); CARBON DIOXIDE 28 mmol/L (22-30); CHLORIDE 104 mmol/L (98-107); CREATININE RESULT 1.97 mg/dL (0.52-1.25); GLUCOSE 166 mg/dL (75-110); POTASSIUM 3.6 mmol/L (3.6-5.0); SODIUM 142.2 mmol/L (137-145)
[2017-04-02 10:14] LABS: TROPONIN I 0.097 ng/mL
--- NOTE | 2017-04-02 10:20 | PDOC H&P ---
History of Present Illness Admission Date/PCP: 04/02/17 09:29 PANDA RODRIGUEZ Patient complains of: Confusion History of Present Illness: LORETO JOSHI is a 66 year old female well known to me from previous inpatient hospital stays who presents with acute encephalopathy. She was normal last night when she talked her son however this morning the senior living informed the son that she was confused and having difficulty with her breathing. The patient was then transferred to the emergency room and she was found to have a urinary tract infection. There was concern that she may have sepsis and the patient was started on IV fluids. She was having some respiratory difficulty and was placed on BiPAP. Her respiratory status has improved however she appears to have congestive heart failure on exam. Patient has a long history of congestive heart failure and is considering starting dialysis because of problems with volume overload and chronic renal failure. The patient is somewhat confused but denies any chest pain or palpitations. She does report having some dysuria. She denies having any fevers or chills. Patient in the past has stated that she did not want dialysis but she states she is agreeable to that if she needs it. Past Medical History Cardiac Medical History: Reports: Atrial Fibrillation - Paroxysmal, Congestive Heart Failure, Coronary Artery Disease, Myocardial Infarction, Hyperlipidema, Hypertension Denies: DVT, Pulmonary Embolism Pulmonary Medical History: Reports: Chronic Obstructive Pulmonary Disease (COPD) , Pneumonia, Sleep Apnea Denies: Asthma, Bronchitis Neurological Medical History: Denies: Seizures Endocrine Medical History: Reports: Diabetes Mellitus Type 2, Hypothyroidism Denies: Hyperthyroidism Renal/ Medical History: Reports: End Stage Renal Disease Malignancy Medical History: Reports: Cervical Cancer GI Medical History: Denies: Cirrhosis, Hepatitis Musculoskeltal Medical History: Reports: Arthritis, Gout Skin Medical History: Denies: Eczema, Psoriasis Psychiatric Medical History: Reports: Depression Hematology: Reports: Anemia Infectious Medical History: Reports: Clostridium Difficile Past Surgical History Past Surgical History: Reports: Appendectomy, Section, Cholecystectomy , Herniorrhaphy, Other - Breast cyst, history of fecal transplant for C. difficile Denies: Hysterectomy Social History Information Source: Patient Lives with: [facility] Smoking Status: Former Smoker Frequency of Alcohol Use: None Hx Recreational Drug Use: No Drugs: None Hx Prescription Drug Abuse: No - Advance Directive Resuscitation Status: Full Code Surrogate healthcare decision maker:: Her son Family History Family History: CAD Parental Family History Reviewed: Yes Children Family History Reviewed: No Sibling(s) Family History Reviewed.: No Medication/Allergy Allergies/Adverse Reactions: No Known Allergies Allergy (Verified 04/07/16 16:28) Review of Systems Constitutional: ABSENT: chills, fever(s), headache(s), weight gain, weight loss Eyes: ABSENT: visual disturbances Ears: ABSENT: hearing changes Cardiovascular: PRESENT: edema, orthropnea. ABSENT: chest pain, palpitations Respiratory: PRESENT: cough, dyspnea. ABSENT: hemoptysis, sputum Gastrointestinal: ABSENT: abdominal pain, constipation, diarrhea, hematemesis, hematochezia, nausea, vomiting Genitourinary: ABSENT: dysuria, hematuria Musculoskeletal: PRESENT: back pain Integumentary: ABSENT: rash, wounds Neurological: PRESENT: confusion. ABSENT: abnormal gait, abnormal speech, dizziness, focal weakness, syncope Psychiatric: ABSENT: anxiety, depression Endocrine: ABSENT: cold intolerance, heat intolerance, polydipsia, polyuria Hematologic/Lymphatic: ABSENT: easy bleeding, easy bruising Physical Exam Vital Signs: Temp Pulse Resp BP Pulse Ox 104.2 F H 19 145/58 H 96 04/02/17 08:20 04/02/17 09:32 04/02/17 09:32 04/02/17 09:32 General appearance: PRESENT: mild distress Head exam: PRESENT: atraumatic, normocephalic Eye exam: PRESENT: conjunctiva pink, EOMI, PERRLA. ABSENT: scleral icterus Ear exam: PRESENT: normal external ear exam Mouth exam: PRESENT: moist, tongue midline Neck exam: ABSENT: carotid bruit, JVD, lymphadenopathy, thyromegaly Respiratory exam: PRESENT: rales - Bibasilar inspiratory rales. ABSENT: rhonchi , wheezes Cardiovascular exam: PRESENT: RRR, systolic murmur. ABSENT: diastolic murmur, rubs Vascular exam: PRESENT: normal capillary refill GI/Abdominal exam: PRESENT: normal bowel sounds, soft. ABSENT: distended, guarding, mass, organolmegaly, rebound, tenderness Rectal exam: PRESENT: deferred Extremities exam: PRESENT: pedal edema, +1 edema. ABSENT: calf tenderness, clubbing Neurological exam: PRESENT: awake, oriented to person, oriented to place, CN II- XII grossly intact. ABSENT: oriented to time, oriented to situation, motor sensory deficit Psychiatric exam: PRESENT: flat affect Skin exam: PRESENT: dry, intact, warm. ABSENT: cyanosis, rash Results Laboratory Results: 04/02/17 09:35 04/02/17 09:35 Sodium 142.2 Potassium 3.6 Chloride 104 Carbon Dioxide 28 Anion Gap 10 BUN 47 H Creatinine 1.97 H Est GFR ( Amer) 31 L Est GFR (Non-Af Amer) 25 L Glucose 166 H Calcium 9.5 Impressions: Chest X-Ray 04/02/17 07:18 IMPRESSION: Cardiomegaly mild vascular congestion. Similar findings were present on prior study. Head CT 04/02/17 07:18 IMPRESSION: MILD CHRONIC CHANGES OF ATROPHY AND MICROVASCULAR ISCHEMIA. NO ACUTE PROCESS. Assessment & Plan - Diagnosis (1) Acute encephalopathy Is this a current diagnosis for this admission?: YesPlan: This is most related to her acute urinary tract infection. Patient has no focal neurological findings that would suggest an acute CVA. (2) UTI (urinary tract infection) Is this a current diagnosis for this admission?: YesPlan: Has a history of having extended spectrum beta-lactamase E. coli infections. Because of that we will coupled with ertapenem until the results of cultures are known. (3) CHF (congestive heart failure) Is this a current diagnosis for this admission?: YesPlan: Patient has acute on chronic diastolic congestive heart failure. Will give IV Lasix. Serial cardiac enzymes to make certain this is not an acute cardiac event as the cause for her symptoms however she denies any chest pain. (4) Anemia in chronic kidney disease (CKD) Is this a current diagnosis for this admission?: Yes (5) CAD (coronary artery disease) Qualifiers: Coronary Disease-Associated Artery/Lesion type: [place] artery [place] vs. transplanted heart: unspecified whether [place] or transplanted heart Associated angina: without angina Qualified Code(s): I25.10 - Atherosclerotic heart disease of [place] coronary artery without angina pectoris Is this a current diagnosis for this admission?: YesPlan: Patient denies any chest pain. Will check serial cardiac enzymes. (6) COPD (chronic obstructive pulmonary disease) Qualifiers: COPD type: unspecified COPD Qualified Code(s): J44.9 - Chronic obstructive pulmonary disease, unspecified Is this a current diagnosis for this admission?: YesPlan: We will give the patient nebulizers and BiPAP as needed. (7) Chronic kidney disease, stage 3 Is this a current diagnosis for this admission?: YesPlan: Patient has evidence for volume overload and will receive IV Lasix. Will consult Dr. Walls when she is available for consideration of dialysis. (8) Depression Qualifiers: Depression Type: unspecified Qualified Code(s): F32.9 - Major depressive disorder, single episode, unspecified Is this a current diagnosis for this admission?: Yes (9) Diabetes mellitus, type II Qualifiers: Diabetes mellitus complication detail: with nephropathy Is this a current diagnosis for this admission?: YesPlan: Continue with Lantus and sliding scale insulin. (10) Hypertension Is this a current diagnosis for this admission?: YesPlan: Continue with her Coreg as well as IV Lasix. (11) Obstructive sleep apnea Is this a current diagnosis for this admission?: YesPlan: Continue with BiPAP (12) Peripheral neuropathy Qualifiers: Peripheral neuropathy type: polyneuropathy, unspecified Qualified Code(s): G62.9 - Polyneuropathy, unspecified Is this a current diagnosis for this admission?: YesPlan: Continue Lyrica (13) Dyslipidemia Is this a current diagnosis for this admission?: Yes (14) Morbid obesity with BMI of 45.0-49.9, adult Is this a current diagnosis for this admission?: Yes (15) DVT prophylaxis Is this a current diagnosis for this admission?: YesPlan: We will give Lovenox - Time Time Spent: 50 to 70 Minutes - Inpatient Certification Medical Necessity: Need Close Monitoring Due to Risk of Patient Decompensation, Need for IV Antibiotics
[2017-04-02 10:25] LABS: CREATINE KINASE MB < 0.22 ng/mL (<4.55)
[2017-04-02] MEDS ORDERED: CARVEDILOL 12.5 MG TABLET PO ONE (12:00)
[2017-04-02] MEDS ORDERED: ASPIRIN 325 MG TABLET PO ONE (12:00)
[2017-04-02] MEDS ORDERED: POLYETHYLENE GLYCOL 3350 POWDER 17 GM/1 PACKET PO ONE (12:00)
[2017-04-02] MEDS ORDERED: FERROUS SULFATE 325 MG TABLET PO ONE (12:00)
[2017-04-02] MEDS ORDERED: FUROSEMIDE INJ/PF 20 MG/2 ML SDV IV ONE (12:00)
[2017-04-02] MEDS ORDERED: SERTRALINE HCL 50 MG TABLET PO ONE (12:00)
[2017-04-02] MEDS ORDERED: LEVOTHYROXINE SODIUM 0.088 MG TABLET PO ONE (12:00)
[2017-04-02] MEDS ORDERED: ENOXAPARIN SODIUM INJ 40 MG/0.4 ML DISP.SYRIN SUBCUT ONE ×2 (12:15→16:30)
[2017-04-02] MEDS ORDERED: ERTAPENEM SODIUM 1 GM in NORMAL SALINE 50 ML IV ONE (13:00)
[2017-04-02] MEDS: PREGABALIN 75 MG CAPSULE PO SCH ×2 (16:15→22:25)
[2017-04-02] MEDS: FERROUS SULFATE 325 MG TABLET PO SCH (16:15)
[2017-04-02] MEDS: FAMOTIDINE 20 MG TABLET PO SCH ×2 (16:15→22:25)
[2017-04-02] MEDS ORDERED: FUROSEMIDE INJ/PF 100 MG/10 ML SDV ONE (16:21)
[2017-04-02 17:17] LABS: CREATINE KINASE MB 0.23 ng/mL (<4.55); TROPONIN I 0.09 ng/mL
[2017-04-02] MEDS: FUROSEMIDE INJ/PF 20 MG/2 ML SDV IV SCH (22:20)
[2017-04-02] MEDS: PRIMIDONE 50 MG TABLET PO SCH (22:24)
[2017-04-02] MEDS: FENOFIBRATE NANOCRYSTALLIZED 145 MG TABLET PO SCH (22:25)
[2017-04-02] MEDS: CARVEDILOL 12.5 MG TABLET PO SCH (22:25)
[2017-04-02] MEDS: ATORVASTATIN CALCIUM 20 MG TABLET PO SCH (22:26)
[2017-04-02 23:35] LABS: CREATINE KINASE MB 0.51 ng/mL (<4.55); TROPONIN I 0.061 ng/mL
[2017-04-03 05:56] LABS: HEMATOCRIT 30.9 % (36.0-47.0); HEMOGLOBIN 10.2 g/dL (12.0-15.5); HGB HCT DIFFERENCE -0.3; MEAN CORPUSCULAR HEMOGLOBIN 30.6 pg (27.0-33.4); MEAN CORPUSCULAR HGB CONC 33.2 g/dL (32.0-36.0); MEAN CORPUSCULAR VOLUME 92 fl (80-97); RED BLOOD COUNT 3.35 10^6/uL (3.72-5.28); WHITE BLOOD COUNT 13.1 10^3/uL (4.0-10.5)
[2017-04-03 06:08] LABS: ANION GAP 12 (5-19); BLOOD UREA NITROGEN 53 mg/dL (7-20); CALCIUM 9.7 mg/dL (8.4-10.2); CARBON DIOXIDE 31 mmol/L (22-30); CHLORIDE 100 mmol/L (98-107); CREATININE RESULT 1.86 mg/dL (0.52-1.25); GLUCOSE 153 mg/dL (75-110); MAGNESIUM 1.6 mg/dL (1.6-2.3); POTASSIUM 3.7 mmol/L (3.6-5.0); SODIUM 142.8 mmol/L (137-145)
[2017-04-03] MEDS: PREGABALIN 75 MG CAPSULE PO SCH ×3 (06:11→21:13)
[2017-04-03] MEDS ORDERED: ENOXAPARIN SODIUM INJ 40 MG/0.4 ML DISP.SYRIN SUBCUT SCH (08:00)
[2017-04-03] MEDS: FUROSEMIDE INJ/PF 20 MG/2 ML SDV IV SCH (09:09)
[2017-04-03] MEDS: FAMOTIDINE 20 MG TABLET PO SCH ×2 (09:10→21:13)
[2017-04-03] MEDS: FERROUS SULFATE 325 MG TABLET PO SCH ×2 (09:10→18:46)
[2017-04-03] MEDS: ACETAMINOPHEN 325 MG TABLET PO PRN ×2 (09:10→18:46)
[2017-04-03] MEDS: CARVEDILOL 12.5 MG TABLET PO SCH ×2 (09:10→21:13)
[2017-04-03] MEDS: HALOPERIDOL 2 MG TABLET PO PRN ×2 (09:10→23:27)
[2017-04-03] MEDS: ASPIRIN 325 MG TABLET PO SCH (09:11)
[2017-04-03] MEDS: SERTRALINE HCL 50 MG TABLET PO SCH (09:11)
[2017-04-03] MEDS: ENOXAPARIN SODIUM INJ 40 MG/0.4 ML DISP.SYRIN SUBCUT SCH (09:11)
[2017-04-03] MEDS: POLYETHYLENE GLYCOL 3350 POWDER 17 GM/1 PACKET PO SCH (09:15)
--- NOTE | 2017-04-03 09:52 | PDOC PROGRESS REPORT ---
Subjective Progress Note for:: 04/03/17 Subjective:: Patient is more alert today and answering questions appropriately. Physical Exam Vital Signs: Temp Pulse Resp BP Pulse Ox 98.7 F 83 19 150/62 H 100 04/03/17 08:10 04/03/17 08:10 04/03/17 08:10 04/03/17 08:10 04/03/17 09:36 Intake & Output 04/02/17 04/03/17 04/04/17 06:59 06:59 06:59 Intake Total 655 Output Total 1 Balance 654 Weight 137.1 kg General appearance: PRESENT: no acute distress Eye exam: PRESENT: conjunctiva pink. ABSENT: scleral icterus Mouth exam: PRESENT: moist, tongue midline Neck exam: ABSENT: JVD Respiratory exam: PRESENT: clear to auscultation emperatriz. ABSENT: rales, rhonchi, wheezes Cardiovascular exam: PRESENT: irregular rhythm, systolic murmur. ABSENT: diastolic murmur, rubs GI/Abdominal exam: PRESENT: normal bowel sounds, soft. ABSENT: distended, guarding, mass, organolmegaly, rebound, tenderness Extremities exam: ABSENT: calf tenderness, clubbing, pedal edema Neurological exam: PRESENT: alert, awake, oriented to person, oriented to place , oriented to time, oriented to situation, CN II-XII grossly intact. ABSENT: motor sensory deficit Psychiatric exam: PRESENT: appropriate affect Skin exam: PRESENT: dry, intact, warm. ABSENT: cyanosis, rash Results Laboratory Results: 04/03/17 05:42 04/03/17 05:42 04/03/17 04/03/17 05:42 05:42 WBC 13.1 H RBC 3.35 L Hgb 10.2 L Hct 30.9 L MCV 92 MCH 30.6 MCHC 33.2 RDW 15.0 H Plt Count 171 Sodium 142.8 Potassium 3.7 Chloride 100 Carbon Dioxide 31 H Anion Gap 12 BUN 53 H Creatinine 1.86 H Est GFR ( Amer) 33 L Est GFR (Non-Af Amer) 27 L Glucose 153 H Calcium 9.7 Magnesium 1.6 04/02/17 04/02/17 04/02/17 16:31 16:31 22:40 Creatine Kinase 74 79 CK-MB (CK-2) 0.23 Troponin I 0.090 04/02/17 22:40 Creatine Kinase CK-MB (CK-2) 0.51 Troponin I 0.061 Impressions: Chest X-Ray 04/02/17 07:18 IMPRESSION: Cardiomegaly mild vascular congestion. Similar findings were present on prior study. Head CT 04/02/17 07:18 IMPRESSION: MILD CHRONIC CHANGES OF ATROPHY AND MICROVASCULAR ISCHEMIA. NO ACUTE PROCESS. Assessment & Plan - Diagnosis (1) Acute encephalopathy Is this a current diagnosis for this admission?: YesPlan: This is most related to her acute urinary tract infection. Patient has no focal neurological findings that would suggest an acute CVA. Patient's mental status today is much improved and she is alert and oriented 3. (2) UTI (urinary tract infection) Is this a current diagnosis for this admission?: YesPlan: Has a history of having extended spectrum beta-lactamase E. coli infections. Because of that we will treat with ertapenem until the results of cultures are known. (3) CHF (congestive heart failure) Is this a current diagnosis for this admission?: YesPlan: Patient has acute on chronic diastolic congestive heart failure. Will give IV Lasix. Patient has had improvement in her congestive heart failure. (4) Anemia in chronic kidney disease (CKD) Is this a current diagnosis for this admission?: Yes (5) CAD (coronary artery disease) Qualifiers: Coronary Disease-Associated Artery/Lesion type: [place] artery [place] vs. transplanted heart: unspecified whether [place] or transplanted heart Associated angina: without angina Qualified Code(s): I25.10 - Atherosclerotic heart disease of [place] coronary artery without angina pectoris Is this a current diagnosis for this admission?: YesPlan: Patient denies any chest pain. Enzymes have been negative (6) COPD (chronic obstructive pulmonary disease) Qualifiers: COPD type: unspecified COPD Qualified Code(s): J44.9 - Chronic obstructive pulmonary disease, unspecified Is this a current diagnosis for this admission?: YesPlan: We will give the patient nebulizers and BiPAP as needed. (7) Chronic kidney disease, stage 3 Is this a current diagnosis for this admission?: YesPlan: Patient had evidence for volume overload and received IV Lasix. Will consult Dr. Walls when she is available for consideration of dialysis. (8) Depression Qualifiers: Depression Type: unspecified Qualified Code(s): F32.9 - Major depressive disorder, single episode, unspecified Is this a current diagnosis for this admission?: Yes (9) Diabetes mellitus, type II Qualifiers: Diabetes mellitus complication detail: with nephropathy Is this a current diagnosis for this admission?: YesPlan: Continue with Lantus and sliding scale insulin. (10) Hypertension Is this a current diagnosis for this admission?: YesPlan: Continue with her Coreg as well as IV Lasix. (11) Obstructive sleep apnea Is this a current diagnosis for this admission?: YesPlan: Continue with BiPAP (12) Peripheral neuropathy Qualifiers: Peripheral neuropathy type: polyneuropathy, unspecified Qualified Code(s): G62.9 - Polyneuropathy, unspecified Is this a current diagnosis for this admission?: YesPlan: Continue Lyrica (13) Dyslipidemia Is this a current diagnosis for this admission?: Yes (14) Morbid obesity with BMI of 45.0-49.9, adult Is this a current diagnosis for this admission?: Yes (15) DVT prophylaxis Is this a current diagnosis for this admission?: YesPlan: We will give Lovenox - Time Time Spent with patient: 25-34 minutes - Inpatient Certification Medical Necessity: Need Close Monitoring Due to Risk of Patient Decompensation
[2017-04-03] MEDS ORDERED: LANSOPRAZOLE 15 MG TAB.RAP.DR PO SCH (10:00)
[2017-04-03] MEDS ORDERED: LEVOTHYROXINE SODIUM 0.088 MG TABLET PO SCH (10:00)
[2017-04-03] MEDS: ERTAPENEM SODIUM 1 GM in NORMAL SALINE 50 ML IV SCH (10:00)
[2017-04-03] MEDS ORDERED: ONDANSETRON HCL INJ/PF 4 MG/2 ML SDV IV PRN (15:33)
--- NOTE | 2017-04-03 18:34 | PDOC CONSULTATION ---
Consultation Consult Date: 04/03/17 Consult reason:: joe on CKD History of Present Illness Admission Date/PCP: 04/02/17 09:39 PANDA RODRIGUEZ History of Present Illness: LORETO JOSHI is a 66 year old female with h/o DM, HTN, CHF, Sleep Apnea, CKD 3/4 who went on transient HD late last year , recurring UTI was brught into the hospital from the [place] with altered mental status , shaking chills. She has been diagnosed with UTI and begun on antibiotics and currently feels a lot better. She was having some respiratory difficulty and was placed on BiPAP. Her respiratory status has improved however she appears to have congestive heart failure on exam. Patient has a long history of congestive heart failure .Presently feels a lot better.No uremic symptoms. Not dyspneic unless she exerts . Past Medical History Cardiac Medical History: Reports: Atrial Fibrillation - Paroxysmal, CHF- Diastolic, Coronary Artery Disease, Hyperlipidemia, Hypertension-primary, Myocardial Infarction Denies: DVT, Pulmonary Embolism Pulmonary Medical History: Reports: Chronic Obstructive Pulmonary Disease (COPD) , Pneumonia, Sleep Apnea Denies: Asthma, Bronchitis Neurological Medical History: Denies: Seizures Endocrine Medical History: Reports: Diabetes Mellitus Type 2, Hypothyroidism Denies: Hyperthyroidism Complications of Diabetes: Reports: Autonomic Neuropathy, Nephropathy Renal/ Medical History: Reports: Chronic Kidney Disease Stage III Malignancy Medical History: Reports: Cervical Cancer GI Medical History: Denies: Cirrhosis, Hepatitis Musculoskeltal Medical History: Reports: Arthritis, Gout Skin Medical History: Denies: Eczema, Psoriasis Psychiatric Medical History: Reports: Depression Infectious Medical History: Reports: Clostridium Difficile - 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 difficile Denies: Hysterectomy Social History Lives with: [facility] Smoking Status: Former Smoker Frequency of Alcohol Use: None Hx Recreational Drug Use: No Drugs: None Hx Prescription Drug Abuse: No - Advance Directive Resuscitation Status: Full Code Family History Parental Family History Reviewed: No Children Family History Reviewed: No Sibling(s) Family History Reviewed.: No Medication/Allergy Home Medications: Aspirin [Aspirin 325 mg Tablet] 325 mg PO DAILY 04/02/17 Atorvastatin Calcium [Lipitor 20 mg Tablet] 20 mg PO QHS 04/02/17 Carvedilol [Coreg 12.5 mg Tablet] 12.5 mg PO Q12 04/02/17 Fenofibrate Nanocrystallized [Tricor 145 mg Tablet] 145 mg PO QHS 04/02/17 Ferrous Sulfate [Feosol 325 mg Tablet] 325 mg PO BID 04/02/17 Furosemide [Lasix 80 mg Tablet] 80 mg PO DAILY 04/02/17 Insulin Glargine,Hum.rec.anlog [Lantus Insulin 100 Unit/1 ml 10 ml] 55 units SQ BID 04/02/17 Insulin Lispro [Humalog Insulin (Lispro) 100 unit/mL] 0 units SQ .PERSLIDINGSCALE 04/02/17 Levalbuterol HCl [Xopenex Neb 1.25 mg/3 ml Ampul] 3 ml NEB [id number] PRN 04/02/17 Levothyroxine Sodium [Synthroid] 88 mg PO QAM 04/02/17 Omeprazole 20 mg PO QAM 04/02/17 Ondansetron HCl [Zofran 4 mg Tablet] 4 mg PO Q6HP PRN 04/02/17 Polyethylene Glycol 3350 [Miralax Powder 17 gm/Packet] 17 gm PO DAILY 04/02/17 Pregabalin [Lyrica 75 mg Capsule] 75 mg PO Q8 04/02/17 Primidone [Mysoline 50 mg Tablet] 25 mg PO QHS 04/02/17 Sertraline HCl [Zoloft 50 mg Tablet] 25 mg PO DAILY 04/02/17 Tramadol HCl [Ultram 50 mg Tablet] 50 mg PO TIDP PRN 04/02/17 Allergies/Adverse Reactions: No Known Allergies Allergy (Verified 04/07/16 16:28) Review of Systems Constitutional: PRESENT: chills. ABSENT: anorexia, fever(s), headache(s), night sweats, weakness Eyes: ABSENT: visual disturbances Ears: ABSENT: hearing changes Nose, Mouth, and Throat: ABSENT: headache(s), mouth pain, sore throat, vertigo Cardiovascular: PRESENT: dyspnea on exertion, edema, orthropnea. ABSENT: chest pain, palpitations Respiratory: PRESENT: dyspnea. ABSENT: hemoptysis Gastrointestinal: PRESENT: constipation. ABSENT: abdominal pain, diarrhea, dysphagia, heartburn, hematemesis, hematochezia Integumentary: ABSENT: lesions, pruritus Neurological: PRESENT: confusion, memory loss, weakness. ABSENT: abnormal movements, convulsions, focal weakness, numbness, syncope, vertigo Hematologic/Lymphatic: ABSENT: easy bruising, lymphadenopathy Physical Exam Vital Signs: Temp Pulse Resp BP Pulse Ox 97.7 F 71 19 127/50 H 100 04/03/17 16:19 04/03/17 16:19 04/03/17 16:19 04/03/17 16:19 04/03/17 16:19 Intake & Output 04/02/17 04/03/17 04/04/17 06:59 06:59 06:59 Intake Total 655 355 Output Total 1 Balance 654 355 Weight 137.1 kg 137.1 kg General appearance: PRESENT: no acute distress Eye exam: PRESENT: conjunctiva pink, EOMI, PERRLA. ABSENT: nystagmus Ear exam: PRESENT: normal external ear exam Mouth exam: PRESENT: moist, neck supple Neck exam: ABSENT: lymphadenopathy, meningismus, tenderness, thyromegaly, tracheal deviation Respiratory exam: PRESENT: clear to auscultation emperatriz. ABSENT: crackles, rhonchi Cardiovascular exam: PRESENT: systolic murmur. ABSENT: +S1, +S2 GI/Abdominal exam: PRESENT: normal bowel sounds, soft. ABSENT: diminished bowel sounds, distended, organomegaly, tenderness Extremities exam: PRESENT: +1 edema Neurological exam: PRESENT: awake, oriented to person, oriented to place, oriented to time Skin exam: ABSENT: cyanosis, erythema, mottled, rash Results Laboratory Results: 04/03/17 05:42 04/03/17 05:42 04/03/17 04/03/17 05:42 05:42 WBC 13.1 H RBC 3.35 L Hgb 10.2 L Hct 30.9 L MCV 92 MCH 30.6 MCHC 33.2 RDW 15.0 H Plt Count 171 Sodium 142.8 Potassium 3.7 Chloride 100 Carbon Dioxide 31 H Anion Gap 12 BUN 53 H Creatinine 1.86 H Est GFR ( Amer) 33 L Est GFR (Non-Af Amer) 27 L Glucose 153 H Calcium 9.7 Magnesium 1.6 04/02/17 04/02/17 04/02/17 16:31 16:31 22:40 Creatine Kinase 74 79 CK-MB (CK-2) 0.23 Troponin I 0.090 04/02/17 22:40 Creatine Kinase CK-MB (CK-2) 0.51 Troponin I 0.061 Impressions: Chest X-Ray 04/02/17 07:18 IMPRESSION: Cardiomegaly mild vascular congestion. Similar findings were present on prior study. Head CT 04/02/17 07:18 IMPRESSION: MILD CHRONIC CHANGES OF ATROPHY AND MICROVASCULAR ISCHEMIA. NO ACUTE PROCESS. Assessment & Plan - Diagnosis (1) CHF (congestive heart failure) Is this a current diagnosis for this admission?: YesPlan: stable (2) History of Clostridium difficile infection Plan: Had episode of diarrhea today.Will send for c diff. (3) Acute encephalopathy Is this a current diagnosis for this admission?: YesPlan: metabolic/septic uti.improving with antibiotics. (4) Acute kidney injury superimposed on chronic kidney disease Plan: stable.ATN.Expect improvement with treatment of UTI.No indications for STUDENT COUNSELLOR presently. (5) Obstructive sleep apnea Is this a current diagnosis for this admission?: YesPlan: use CPAP. (6) Morbid obesity with BMI of 45.0-49.9, adult Is this a current diagnosis for this admission?: Yes (7) Sepsis Qualifiers: Sepsis type: Escherichia coli Qualified Code(s): A41.51 - Sepsis due to Escherichia coli [E. coli] Plan: from UTI.Improving clinically. (8) UTI (urinary tract infection) Qualifiers: Urinary tract infection type: site unspecified Hematuria presence: without hematuria Qualified Code(s): N39.0 - Urinary tract infection, site not specified Plan: Gram neg rods.On ertapenem and dose adjusted to CKD.
[2017-04-03] MEDS: INSULIN LISPRO 100 UNIT/ML 3 ML VIAL SUBCUT PRN ×2 (18:46→21:12)
[2017-04-03] MEDS: FUROSEMIDE INJ/PF 100 MG/10 ML SDV IV SCH (21:12)
[2017-04-03] MEDS: PRIMIDONE 50 MG TABLET PO SCH (21:13)
[2017-04-03] MEDS: FENOFIBRATE NANOCRYSTALLIZED 145 MG TABLET PO SCH (21:13)
[2017-04-03] MEDS: ATORVASTATIN CALCIUM 20 MG TABLET PO SCH (21:13)
[2017-04-04] MEDS: LANSOPRAZOLE 15 MG TAB.RAP.DR PO SCH (05:24)
[2017-04-04] MEDS: LEVOTHYROXINE SODIUM 0.088 MG TABLET PO SCH (05:24)
[2017-04-04] MEDS: PREGABALIN 75 MG CAPSULE PO SCH ×3 (05:24→21:42)
[2017-04-04 05:26] LABS: ABSOLUTE BASOPHILS # (AUTO) 0.1 10^3/uL (0.0-0.2); ABSOLUTE EOSINOPHILS # (AUTO) 0.1 10^3/uL (0.0-0.6); ABSOLUTE LYMPHOCYTES (AUTO) 1.8 10^3/uL (0.5-4.7); ABSOLUTE MONOCYTES (AUTO) 1.3 10^3/uL (0.1-1.4); ABSOLUTE NEUT (AUTO) 4.3 10^3/uL (1.7-8.2); BASOPHILS % (AUTO) 0.9 % (0-2); EOSINOPHILS % (AUTO) 1.4 % (0-6); HEMATOCRIT 32.6 % (36.0-47.0); HEMOGLOBIN 10.8 g/dL (12.0-15.5); HGB HCT DIFFERENCE -0.2; LYMPHOCYTES % (AUTO) 24.2 % (13-45); MEAN CORPUSCULAR HEMOGLOBIN 30.9 pg (27.0-33.4); MEAN CORPUSCULAR HGB CONC 33.2 g/dL (32.0-36.0); MEAN CORPUSCULAR VOLUME 93 fl (80-97); MONOCYTES % (AUTO) 17.1 % (3-13); RED BLOOD COUNT 3.51 10^6/uL (3.72-5.28); RED CELL DISTRIBUTION WIDTH 14.6 % (11.5-14.0); SEGMENTED NEUTROPHILS % (AUTO) 56.4 % (42-78); WHITE BLOOD COUNT 7.5 10^3/uL (4.0-10.5)
[2017-04-04 06:02] LABS: ANION GAP 13 (5-19); BLOOD UREA NITROGEN 51 mg/dL (7-20); CARBON DIOXIDE 33 mmol/L (22-30); CHLORIDE 96 mmol/L (98-107); CREATININE RESULT 1.85 mg/dL (0.52-1.25); GLUCOSE 158 mg/dL (75-110); POTASSIUM 3.9 mmol/L (3.6-5.0); SODIUM 141.7 mmol/L (137-145)
[2017-04-04] MEDS: ENOXAPARIN SODIUM INJ 40 MG/0.4 ML DISP.SYRIN SUBCUT SCH (07:45)
[2017-04-04] MEDS: CARVEDILOL 12.5 MG TABLET PO SCH ×2 (10:02→21:42)
[2017-04-04] MEDS: FAMOTIDINE 20 MG TABLET PO SCH ×2 (10:02→21:42)
[2017-04-04] MEDS: FERROUS SULFATE 325 MG TABLET PO SCH ×2 (10:03→18:14)
[2017-04-04] MEDS: SERTRALINE HCL 50 MG TABLET PO SCH (10:03)
[2017-04-04] MEDS: ASPIRIN 325 MG TABLET PO SCH (10:03)
[2017-04-04] MEDS: FUROSEMIDE INJ/PF 100 MG/10 ML SDV IV SCH ×2 (10:04→21:41)
[2017-04-04] MEDS: ERTAPENEM SODIUM 1 GM in NORMAL SALINE 50 ML IV SCH (10:05)
[2017-04-04] MEDS: POLYETHYLENE GLYCOL 3350 POWDER 17 GM/1 PACKET PO SCH (10:09)
--- NOTE | 2017-04-04 11:28 | PDOC PROGRESS REPORT ---
Subjective Progress Note for:: 04/04/17 Subjective:: Patient complains of diarrhea at this time. No reported temperature spikes nausea or vomiting. Patient reports decreased appetite. No shortness of breath at this time. No chest pain or palpitation. Physical Exam Vital Signs: Temp Pulse Resp BP Pulse Ox 100.2 F 69 20 158/64 H 99 04/04/17 07:37 04/04/17 07:37 04/04/17 07:37 04/04/17 07:37 04/04/17 08:28 Intake & Output 04/03/17 04/04/17 04/05/17 06:59 06:59 06:59 Intake Total 655 781 Output Total 1 Balance 654 781 Weight 137.1 kg 139.2 kg General appearance: PRESENT: no acute distress, cooperative, morbidly obese Head exam: PRESENT: normocephalic Eye exam: PRESENT: EOMI Mouth exam: PRESENT: moist, neck supple Neck exam: ABSENT: JVD Respiratory exam: PRESENT: clear to auscultation emperatriz. ABSENT: rhonchi, wheezes Cardiovascular exam: PRESENT: RRR. ABSENT: gallop GI/Abdominal exam: PRESENT: normal bowel sounds, soft. ABSENT: distended - Obese Extremities exam: PRESENT: other - Trace lower extremity edema Neurological exam: PRESENT: alert, awake, oriented to situation Skin exam: PRESENT: dry, warm. ABSENT: cyanosis Results Laboratory Results: 04/04/17 04:57 04/04/17 04:57 04/04/17 04/04/17 04:57 04:57 WBC 7.5 RBC 3.51 L Hgb 10.8 L Hct 32.6 L MCV 93 MCH 30.9 MCHC 33.2 RDW 14.6 H Plt Count 173 Seg Neutrophils % 56.4 Lymphocytes % 24.2 Monocytes % 17.1 H Eosinophils % 1.4 Basophils % 0.9 Absolute Neutrophils 4.3 Absolute Lymphocytes 1.8 Absolute Monocytes 1.3 Absolute Eosinophils 0.1 Absolute Basophils 0.1 Sodium 141.7 Potassium 3.9 Chloride 96 L Carbon Dioxide 33 H Anion Gap 13 BUN 51 H Creatinine 1.85 H Est GFR ( Amer) 33 L Est GFR (Non-Af Amer) 27 L Glucose 158 H Calcium 10.0 04/02/17 04/02/17 04/02/17 16:31 16:31 22:40 Creatine Kinase 74 79 CK-MB (CK-2) 0.23 Troponin I 0.090 04/02/17 22:40 Creatine Kinase CK-MB (CK-2) 0.51 Troponin I 0.061 Impressions: Chest X-Ray 04/02/17 07:18 IMPRESSION: Cardiomegaly mild vascular congestion. Similar findings were present on prior study. Head CT 04/02/17 07:18 IMPRESSION: MILD CHRONIC CHANGES OF ATROPHY AND MICROVASCULAR ISCHEMIA. NO ACUTE PROCESS. Assessment & Plan - Diagnosis (1) Acute encephalopathy Is this a current diagnosis for this admission?: Yes (2) UTI (urinary tract infection) Qualifiers: Urinary tract infection type: site unspecified Hematuria presence: without hematuria Qualified Code(s): N39.0 - Urinary tract infection, site not specified Is this a current diagnosis for this admission?: Yes (3) CHF (congestive heart failure) Qualifiers: Congestive heart failure type: diastolic Congestive heart failure chronicity: chronic Qualified Code(s): I50.32 - Chronic diastolic ( congestive) heart failure Is this a current diagnosis for this admission?: Yes (4) Diarrhea Qualifiers: Diarrhea type: unspecified type Qualified Code(s): R19.7 - Diarrhea , unspecified Is this a current diagnosis for this admission?: Yes (5) Anemia in chronic kidney disease (CKD) Is this a current diagnosis for this admission?: Yes (7) CAD (coronary artery disease) Qualifiers: Coronary Disease-Associated Artery/Lesion type: [place] artery [place] vs. transplanted heart: unspecified whether [place] or transplanted heart Associated angina: without angina Qualified Code(s): I25.10 - Atherosclerotic heart disease of [place] coronary artery without angina pectoris Is this a current diagnosis for this admission?: Yes (8) COPD (chronic obstructive pulmonary disease) Qualifiers: COPD type: unspecified COPD Qualified Code(s): J44.9 - Chronic obstructive pulmonary disease, unspecified Is this a current diagnosis for this admission?: Yes (9) Depression Qualifiers: Depression Type: unspecified Qualified Code(s): F32.9 - Major depressive disorder, single episode, unspecified Is this a current diagnosis for this admission?: Yes (10) Diabetes mellitus, type II Qualifiers: Diabetes mellitus complication detail: with nephropathy Diabetes mellitus mcc insulin use: unspecified mcc insulin use status Is this a current diagnosis for this admission?: Yes (11) Hypertension Qualifiers: Hypertension type: essential hypertension Qualified Code(s): I10 - Essential (primary) hypertension Is this a current diagnosis for this admission?: Yes (12) Obstructive sleep apnea Is this a current diagnosis for this admission?: Yes (13) Peripheral neuropathy Qualifiers: Peripheral neuropathy type: polyneuropathy, unspecified Qualified Code(s): G62.9 - Polyneuropathy, unspecified Is this a current diagnosis for this admission?: Yes (14) Dyslipidemia Is this a current diagnosis for this admission?: Yes (15) Hypothyroidism Qualifiers: Hypothyroidism type: unspecified Qualified Code(s): E03.9 - Hypothyroidism, unspecified (16) Morbid obesity with BMI of 45.0-49.9, adult Is this a current diagnosis for this admission?: Yes - Time Time Spent with patient: 25-34 minutes - Plan Summary Plan Summary: Continue Invanz. Patient has underlying chronic kidney disease and has considered dialysis in the past. Therefore unable to put a PICC line, we will keep IV antibiotics for a total of 2 weeks. In the meantime check Clostridium difficile toxin and begin lactobacillus and Flagyl. Continue IV diuretics for now. Continue supportive care.
[2017-04-04] MEDS: METRONIDAZOLE 500 MG TABLET PO SCH ×3 (11:48→23:03)
[2017-04-04] MEDS: ONDANSETRON 4 MG TAB.RAPDIS PO PRN (11:48)
[2017-04-04] MEDS: INSULIN LISPRO 100 UNIT/ML 3 ML VIAL SUBCUT PRN ×2 (12:47→22:55)
--- NOTE | 2017-04-04 15:31 | PDOC PROGRESS REPORT ---
Subjective Progress Note for:: 04/04/17 Subjective:: Patient was seen this morning. She is having continuous diarrhea now and unfortunately C. difficile has not yet been done. However on review of hospitalist note patient has been begun on Flagyl. 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 She denies any history of abdominal pains nausea vomiting no history of any fever chills. Overall otherwise she is doing better. Physical Exam Vital Signs: Temp Pulse Resp BP Pulse Ox 98.3 F 66 18 149/54 H 100 04/04/17 12:12 04/04/17 14:00 04/04/17 12:12 04/04/17 12:12 04/04/17 12:12 Intake & Output 04/03/17 04/04/17 04/05/17 06:59 06:59 06:59 Intake Total 655 781 609 Output Total 1 Balance 654 781 609 Weight 137.1 kg 139.2 kg General appearance: PRESENT: no acute distress Respiratory exam: PRESENT: clear to auscultation emperatriz. ABSENT: crackles, rhonchi Cardiovascular exam: PRESENT: systolic murmur. ABSENT: +S1, +S2 GI/Abdominal exam: PRESENT: normal bowel sounds, soft. ABSENT: diminished bowel sounds, distended, organomegaly, tenderness Neurological exam: PRESENT: awake, oriented to person, oriented to place, oriented to time Results Laboratory Results: 04/04/17 04:57 04/04/17 04:57 04/04/17 04/04/17 04:57 04:57 WBC 7.5 RBC 3.51 L Hgb 10.8 L Hct 32.6 L MCV 93 MCH 30.9 MCHC 33.2 RDW 14.6 H Plt Count 173 Seg Neutrophils % 56.4 Lymphocytes % 24.2 Monocytes % 17.1 H Eosinophils % 1.4 Basophils % 0.9 Absolute Neutrophils 4.3 Absolute Lymphocytes 1.8 Absolute Monocytes 1.3 Absolute Eosinophils 0.1 Absolute Basophils 0.1 Sodium 141.7 Potassium 3.9 Chloride 96 L Carbon Dioxide 33 H Anion Gap 13 BUN 51 H Creatinine 1.85 H Est GFR ( Amer) 33 L Est GFR (Non-Af Amer) 27 L Glucose 158 H Calcium 10.0 04/02/17 04/02/17 04/02/17 16:31 16:31 22:40 Creatine Kinase 74 79 CK-MB (CK-2) 0.23 Troponin I 0.090 04/02/17 22:40 Creatine Kinase CK-MB (CK-2) 0.51 Troponin I 0.061 Impressions: Chest X-Ray 04/02/17 07:18 IMPRESSION: Cardiomegaly mild vascular congestion. Similar findings were present on prior study. Head CT 04/02/17 07:18 IMPRESSION: MILD CHRONIC CHANGES OF ATROPHY AND MICROVASCULAR ISCHEMIA. NO ACUTE PROCESS. Assessment & Plan - Diagnosis (1) CHF (congestive heart failure) Is this a current diagnosis for this admission?: YesPlan: stable (2) History of Clostridium difficile infection Plan: Note previous history of severe persistent C. difficile colitis while she was in [place] and the fact she underwent fecal transplant.Patient is on Flagyl currently pending stool specimen to be sent for C. difficile serology.Discussed with nurse to make sure that they keep a close watch to send the next specimen when available for C. difficile. (3) Acute encephalopathy Is this a current diagnosis for this admission?: YesPlan: metabolic/septic uti.Resolved with antibiotics. (4) Acute kidney injury superimposed on chronic kidney disease Plan: stable.ATN.Expect improvement with treatment of UTI.No indications for TECHNICAL SYSTEMS ARCHITECT presently. (5) Obstructive sleep apnea Is this a current diagnosis for this admission?: YesPlan: use CPAP. (6) Morbid obesity with BMI of 45.0-49.9, adult Is this a current diagnosis for this admission?: Yes (7) Sepsis Qualifiers: Sepsis type: Escherichia coli Qualified Code(s): A41.51 - Sepsis due to Escherichia coli [E. coli] Plan: from UTI.Improving clinically. (8) UTI (urinary tract infection) Qualifiers: Urinary tract infection type: site unspecified Hematuria presence: without hematuria Qualified Code(s): N39.0 - Urinary tract infection, site not specified Plan: ESBL E. coli. Sensitive and currently on ertapenem and dose adjusted to CKD.
[2017-04-04] MEDS: LACTOBACILLUS ACIDOPHILUS 250 MG TAB PO SCH (18:15)
[2017-04-04] MEDS: PRIMIDONE 50 MG TABLET PO SCH (21:42)
[2017-04-04] MEDS: FENOFIBRATE NANOCRYSTALLIZED 145 MG TABLET PO SCH (21:42)
[2017-04-04] MEDS: ATORVASTATIN CALCIUM 20 MG TABLET PO SCH (21:42)
[2017-04-05] MEDS: LEVOTHYROXINE SODIUM 0.088 MG TABLET PO SCH (05:03)
[2017-04-05] MEDS: LANSOPRAZOLE 15 MG TAB.RAP.DR PO SCH (05:03)
[2017-04-05] MEDS: PREGABALIN 75 MG CAPSULE PO SCH ×3 (05:04→22:07)
[2017-04-05] MEDS: METRONIDAZOLE 500 MG TABLET PO SCH ×3 (05:04→22:07)
[2017-04-05 05:10] LABS: ANION GAP 10 (5-19); BLOOD UREA NITROGEN 58 mg/dL (7-20); CALCIUM 9.7 mg/dL (8.4-10.2); CARBON DIOXIDE 35 mmol/L (22-30); CHLORIDE 95 mmol/L (98-107); CREATININE RESULT 2.37 mg/dL (0.52-1.25); GLUCOSE 227 mg/dL (75-110); POTASSIUM 4.3 mmol/L (3.6-5.0); SODIUM 139.9 mmol/L (137-145)
[2017-04-05] MEDS: ENOXAPARIN SODIUM INJ 40 MG/0.4 ML DISP.SYRIN SUBCUT SCH (08:18)
[2017-04-05] MEDS: FERROUS SULFATE 325 MG TABLET PO SCH ×2 (09:16→17:13)
[2017-04-05] MEDS: LACTOBACILLUS ACIDOPHILUS 250 MG TAB PO SCH ×2 (09:17→17:12)
[2017-04-05] MEDS: ASPIRIN 325 MG TABLET PO SCH (09:17)
[2017-04-05] MEDS: FAMOTIDINE 20 MG TABLET PO SCH ×2 (09:17→22:07)
[2017-04-05] MEDS: SERTRALINE HCL 50 MG TABLET PO SCH (09:17)
[2017-04-05] MEDS: CARVEDILOL 12.5 MG TABLET PO SCH ×2 (09:18→22:09)
[2017-04-05] MEDS: POLYETHYLENE GLYCOL 3350 POWDER 17 GM/1 PACKET PO SCH (09:18)
[2017-04-05] MEDS: FUROSEMIDE INJ/PF 100 MG/10 ML SDV IV SCH (09:18)
[2017-04-05] MEDS: ERTAPENEM SODIUM 1 GM in NORMAL SALINE 50 ML IV SCH (10:05)
--- NOTE | 2017-04-05 10:10 | PDOC PROGRESS REPORT ---
Subjective Progress Note for:: 04/05/17 Subjective:: Patients diarrhea less at this time. No reported temperature spikes nausea or vomiting. Patient reports decreased appetite. No shortness of breath at this time. No chest pain or palpitation. Creatinine increased today. Physical Exam Vital Signs: Temp Pulse Resp BP Pulse Ox 98.3 F 63 18 149/61 H 96 04/05/17 07:19 04/05/17 07:19 04/05/17 07:19 04/05/17 07:19 04/05/17 07:19 Intake & Output 04/04/17 04/05/17 04/06/17 06:59 06:59 06:59 Intake Total 781 1389 Balance 781 1389 Weight 139.2 kg 140 kg General appearance: PRESENT: no acute distress, obese Head exam: PRESENT: normocephalic Eye exam: PRESENT: EOMI Mouth exam: PRESENT: moist, neck supple Neck exam: ABSENT: JVD Respiratory exam: PRESENT: clear to auscultation emperatriz Cardiovascular exam: PRESENT: RRR. ABSENT: gallop GI/Abdominal exam: PRESENT: soft. ABSENT: distended - Obese, tenderness Extremities exam: PRESENT: other - Trace edema bilateral Neurological exam: PRESENT: alert, awake, oriented to situation Skin exam: PRESENT: dry, warm. ABSENT: cyanosis Results Laboratory Results: 04/04/17 04:57 04/05/17 04:28 04/05/17 04:28 Sodium 139.9 Potassium 4.3 Chloride 95 L Carbon Dioxide 35 H Anion Gap 10 BUN 58 H Creatinine 2.37 H Est GFR ( Amer) 25 L Est GFR (Non-Af Amer) 20 L Glucose 227 H Calcium 9.7 04/02/17 04/02/17 04/02/17 16:31 16:31 22:40 Creatine Kinase 74 79 CK-MB (CK-2) 0.23 Troponin I 0.090 04/02/17 22:40 Creatine Kinase CK-MB (CK-2) 0.51 Troponin I 0.061 Impressions: Chest X-Ray 04/02/17 07:18 IMPRESSION: Cardiomegaly mild vascular congestion. Similar findings were present on prior study. Head CT 04/02/17 07:18 IMPRESSION: MILD CHRONIC CHANGES OF ATROPHY AND MICROVASCULAR ISCHEMIA. NO ACUTE PROCESS. Assessment & Plan - Diagnosis (1) Acute encephalopathy Is this a current diagnosis for this admission?: Yes (2) UTI (urinary tract infection) Qualifiers: Urinary tract infection type: site unspecified Hematuria presence: without hematuria Qualified Code(s): N39.0 - Urinary tract infection, site not specified Is this a current diagnosis for this admission?: Yes (3) CHF (congestive heart failure) Qualifiers: Congestive heart failure type: diastolic Congestive heart failure chronicity: chronic Qualified Code(s): I50.32 - Chronic diastolic ( congestive) heart failure Is this a current diagnosis for this admission?: Yes (4) Diarrhea Qualifiers: Diarrhea type: unspecified type Qualified Code(s): R19.7 - Diarrhea , unspecified Is this a current diagnosis for this admission?: Yes (5) Anemia in chronic kidney disease (CKD) Is this a current diagnosis for this admission?: Yes (7) CAD (coronary artery disease) Qualifiers: Coronary Disease-Associated Artery/Lesion type: [place] artery [place] vs. transplanted heart: unspecified whether [place] or transplanted heart Associated angina: without angina Qualified Code(s): I25.10 - Atherosclerotic heart disease of [place] coronary artery without angina pectoris Is this a current diagnosis for this admission?: Yes (8) COPD (chronic obstructive pulmonary disease) Qualifiers: COPD type: unspecified COPD Qualified Code(s): J44.9 - Chronic obstructive pulmonary disease, unspecified Is this a current diagnosis for this admission?: Yes (9) Depression Qualifiers: Depression Type: unspecified Qualified Code(s): F32.9 - Major depressive disorder, single episode, unspecified Is this a current diagnosis for this admission?: Yes (10) Diabetes mellitus, type II Qualifiers: Diabetes mellitus complication detail: with nephropathy 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 mellitus 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: unspecified 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 status Is this a current diagnosis for this admission?: Yes (11) Hypertension Qualifiers: Hypertension type: essential hypertension Qualified Code(s): I10 - Essential (primary) hypertension Is this a current diagnosis for this admission?: Yes (12) Obstructive sleep apnea Is this a current diagnosis for this admission?: Yes (13) Peripheral neuropathy Qualifiers: Peripheral neuropathy type: polyneuropathy, unspecified Qualified Code(s): G62.9 - Polyneuropathy, unspecified Is this a current diagnosis for this admission?: Yes (14) Dyslipidemia Is this a current diagnosis for this admission?: Yes (15) Hypothyroidism Qualifiers: Hypothyroidism type: unspecified Qualified Code(s): E03.9 - Hypothyroidism, unspecified (16) Morbid obesity with BMI of 45.0-49.9, adult Is this a current diagnosis for this admission?: Yes - Time Time Spent with patient: 25-34 minutes - Plan Summary Plan Summary: Case discussed with nephrology service, we will get a PICC line to the internal jugular and continue IV antibiotics for a total of 2 weeks. Creatinine noted to increase we will therefore decrease the dose of the Flagyl, discontinue Lasix and switched to oral in the morning. Continue other medications and supportive care.
[2017-04-05] MEDS: INSULIN LISPRO 100 UNIT/ML 3 ML VIAL SUBCUT PRN ×3 (12:15→22:06)
--- NOTE | 2017-04-05 16:12 | PDOC PROGRESS REPORT ---
Subjective Progress Note for:: 04/05/17 Subjective:: Patient was seen this morning. She is generally feeling better.Fortunately her diarrhea has resolved and is now formed. Unfortunately his C. difficile is still not sent and has just been sent this morning. She is on Flagyl. She denies any history of chest pain shortness of breath.Medications and labs were reviewed with the patient. Physical Exam Vital Signs: Temp Pulse Resp BP Pulse Ox 97.7 F 63 20 132/57 H 98 04/05/17 11:42 04/05/17 14:00 04/05/17 11:42 04/05/17 11:42 04/05/17 11:42 Intake & Output 04/04/17 04/05/17 04/06/17 06:59 06:59 06:59 Intake Total 781 1389 342 Balance 781 1389 342 Weight 139.2 kg 140 kg General appearance: PRESENT: no acute distress Respiratory exam: PRESENT: clear to auscultation emperatriz. ABSENT: crackles, rhonchi Cardiovascular exam: PRESENT: systolic murmur. ABSENT: +S1, +S2 GI/Abdominal exam: PRESENT: normal bowel sounds, soft. ABSENT: diminished bowel sounds, distended, organomegaly, tenderness Extremities exam: ABSENT: pedal edema Results Laboratory Results: 04/04/17 04:57 04/05/17 04:28 04/05/17 04:28 Sodium 139.9 Potassium 4.3 Chloride 95 L Carbon Dioxide 35 H Anion Gap 10 BUN 58 H Creatinine 2.37 H Est GFR ( Amer) 25 L Est GFR (Non-Af Amer) 20 L Glucose 227 H Calcium 9.7 04/02/17 04/02/17 04/02/17 16:31 16:31 22:40 Creatine Kinase 74 79 CK-MB (CK-2) 0.23 Troponin I 0.090 04/02/17 22:40 Creatine Kinase CK-MB (CK-2) 0.51 Troponin I 0.061 Impressions: Chest X-Ray 04/02/17 07:18 IMPRESSION: Cardiomegaly mild vascular congestion. Similar findings were present on prior study. Head CT 04/02/17 07:18 IMPRESSION: MILD CHRONIC CHANGES OF ATROPHY AND MICROVASCULAR ISCHEMIA. NO ACUTE PROCESS. Assessment & Plan - Diagnosis (1) CHF (congestive heart failure) Is this a current diagnosis for this admission?: YesPlan: stable (2) History of Clostridium difficile infection Plan: C. difficile pending. Patient on Flagyl. Advised dose modification and discussed with Dr. Glass. (3) Acute encephalopathy Is this a current diagnosis for this admission?: YesPlan: metabolic/septic uti. Currently resolved. (4) Acute kidney injury superimposed on chronic kidney disease Plan: Clinically patient is dehydrated from overdiuresis. Renal numbers are slightly worse. Discussed with Dr. Glass to hold off on the intravenous diuretics today and start p.o. tomorrow. (5) Obstructive sleep apnea Is this a current diagnosis for this admission?: Yes (6) Morbid obesity with BMI of 45.0-49.9, adult Is this a current diagnosis for this admission?: Yes (7) Sepsis Qualifiers: Sepsis type: Escherichia coli Qualified Code(s): A41.51 - Sepsis due to Escherichia coli [E. coli] Plan: Resolved with appropriate antibiotics by treating the ESBL E. coli UTI. (8) UTI (urinary tract infection) Qualifiers: Urinary tract infection type: site unspecified Hematuria presence: without hematuria Qualified Code(s): N39.0 - Urinary tract infection, site not specified Plan: Patient has ESBL E. coli UTI.Discussed with Dr. Rodrigez IJ PICC line so that long-term intravenous antibiotics can be administered and patient can be discharged back to care home.
[2017-04-05] MEDS: FENOFIBRATE NANOCRYSTALLIZED 145 MG TABLET PO SCH (22:07)
[2017-04-05] MEDS: ATORVASTATIN CALCIUM 20 MG TABLET PO SCH (22:07)
[2017-04-05] MEDS: PRIMIDONE 50 MG TABLET PO SCH (22:07)
[2017-04-06] MEDS: LEVOTHYROXINE SODIUM 0.088 MG TABLET PO SCH (05:29)
[2017-04-06] MEDS: PREGABALIN 75 MG CAPSULE PO SCH ×3 (05:29→21:54)
[2017-04-06] MEDS: METRONIDAZOLE 500 MG TABLET PO SCH ×3 (05:29→21:54)
[2017-04-06] MEDS: LANSOPRAZOLE 15 MG TAB.RAP.DR PO SCH (05:29)
[2017-04-06 05:30] LABS: ANION GAP 12 (5-19); BLOOD UREA NITROGEN 67 mg/dL (7-20); CALCIUM 10.1 mg/dL (8.4-10.2); CARBON DIOXIDE 37 mmol/L (22-30); CHLORIDE 96 mmol/L (98-107); CREATININE RESULT 2.55 mg/dL (0.52-1.25); GLUCOSE 228 mg/dL (75-110); POTASSIUM 4.5 mmol/L (3.6-5.0); SODIUM 145.1 mmol/L (137-145)
[2017-04-06] MEDS: ENOXAPARIN SODIUM INJ 40 MG/0.4 ML DISP.SYRIN SUBCUT SCH (08:24)
[2017-04-06] MEDS: INSULIN LISPRO 100 UNIT/ML 3 ML VIAL SUBCUT PRN ×2 (08:26→13:13)
[2017-04-06] MEDS: ASPIRIN 325 MG TABLET PO SCH (09:15)
[2017-04-06] MEDS: ERTAPENEM SODIUM 1 GM in NORMAL SALINE 50 ML IV SCH (09:28)
[2017-04-06] MEDS: LACTOBACILLUS ACIDOPHILUS 250 MG TAB PO SCH ×2 (09:28→17:10)
[2017-04-06] MEDS: CARVEDILOL 12.5 MG TABLET PO SCH ×2 (09:29→21:53)
[2017-04-06] MEDS: FERROUS SULFATE 325 MG TABLET PO SCH ×2 (09:29→17:10)
[2017-04-06] MEDS: SERTRALINE HCL 50 MG TABLET PO SCH (09:29)
[2017-04-06] MEDS: FAMOTIDINE 20 MG TABLET PO SCH ×2 (09:29→21:54)
[2017-04-06] MEDS ORDERED: ERTAPENEM SODIUM INJ 1 GM VIAL IV ONE (09:39)
--- NOTE | 2017-04-06 09:47 | PDOC PROGRESS REPORT ---
Subjective Progress Note for:: 04/06/17 Subjective:: Patients has no diarrhea at this time. No reported temperature spikes nausea or vomiting. No shortness of breath chills nor fever at this time. No chest pain or palpitation. Creatinine increased today. Physical Exam Vital Signs: Temp Pulse Resp BP Pulse Ox 97.7 F 75 20 146/61 H 94 04/06/17 07:48 04/06/17 07:48 04/06/17 07:48 04/06/17 07:48 04/06/17 07:48 Intake & Output 04/05/17 04/06/17 04/07/17 06:59 06:59 06:59 Intake Total 1389 1057 Balance 1389 1057 Weight 140 kg 137.8 kg General appearance: PRESENT: no acute distress, cooperative, morbidly obese Head exam: PRESENT: normocephalic Eye exam: PRESENT: EOMI Mouth exam: PRESENT: moist, neck supple Neck exam: ABSENT: JVD Respiratory exam: PRESENT: clear to auscultation emperatriz. ABSENT: rhonchi, wheezes Cardiovascular exam: PRESENT: RRR. ABSENT: gallop GI/Abdominal exam: PRESENT: soft. ABSENT: distended - Obese, tenderness Extremities exam: PRESENT: other - Trace lower extremity edema Neurological exam: PRESENT: alert, awake, oriented to situation Skin exam: PRESENT: dry, warm. ABSENT: cyanosis Results Laboratory Results: 04/04/17 04:57 04/06/17 04:42 04/06/17 04:42 Sodium 145.1 H Potassium 4.5 Chloride 96 L Carbon Dioxide 37 H Anion Gap 12 BUN 67 H Creatinine 2.55 H Est GFR ( Amer) 23 L Est GFR (Non-Af Amer) 19 L Glucose 228 H Calcium 10.1 04/02/17 04/02/17 04/02/17 16:31 16:31 22:40 Creatine Kinase 74 79 CK-MB (CK-2) 0.23 Troponin I 0.090 04/02/17 22:40 Creatine Kinase CK-MB (CK-2) 0.51 Troponin I 0.061 Impressions: Chest X-Ray 04/02/17 07:18 IMPRESSION: Cardiomegaly mild vascular congestion. Similar findings were present on prior study. Head CT 04/02/17 07:18 IMPRESSION: MILD CHRONIC CHANGES OF ATROPHY AND MICROVASCULAR ISCHEMIA. NO ACUTE PROCESS. Assessment & Plan - Diagnosis (1) Acute encephalopathy Is this a current diagnosis for this admission?: Yes (2) UTI (urinary tract infection) Qualifiers: Urinary tract infection type: site unspecified Hematuria presence: without hematuria Qualified Code(s): N39.0 - Urinary tract infection, site not specified Is this a current diagnosis for this admission?: Yes (3) CHF (congestive heart failure) Qualifiers: Congestive heart failure type: diastolic Congestive heart failure chronicity: chronic Qualified Code(s): I50.32 - Chronic diastolic ( congestive) heart failure Is this a current diagnosis for this admission?: Yes (4) Diarrhea Qualifiers: Diarrhea type: unspecified type Qualified Code(s): R19.7 - Diarrhea , unspecified Is this a current diagnosis for this admission?: Yes (5) Anemia in chronic kidney disease (CKD) Is this a current diagnosis for this admission?: Yes (7) CAD (coronary artery disease) Qualifiers: Coronary Disease-Associated Artery/Lesion type: [place] artery [place] vs. transplanted heart: unspecified whether [place] or transplanted heart Associated angina: without angina Qualified Code(s): I25.10 - Atherosclerotic heart disease of [place] coronary artery without angina pectoris Is this a current diagnosis for this admission?: Yes (8) COPD (chronic obstructive pulmonary disease) Qualifiers: COPD type: unspecified COPD Qualified Code(s): J44.9 - Chronic obstructive pulmonary disease, unspecified Is this a current diagnosis for this admission?: Yes (9) Depression Qualifiers: Depression Type: unspecified Qualified Code(s): F32.9 - Major depressive disorder, single episode, unspecified Is this a current diagnosis for this admission?: Yes (10) Diabetes mellitus, type II Qualifiers: Diabetes mellitus complication detail: with nephropathy Diabetes mellitus longterm insulin use: unspecified 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 Is this a current diagnosis for this admission?: Yes (11) Hypertension Qualifiers: Hypertension type: essential hypertension Qualified Code(s): I10 - Essential (primary) hypertension Is this a current diagnosis for this admission?: Yes (12) Obstructive sleep apnea Is this a current diagnosis for this admission?: Yes (13) Peripheral neuropathy Qualifiers: Peripheral neuropathy type: polyneuropathy, unspecified Qualified Code(s): G62.9 - Polyneuropathy, unspecified Is this a current diagnosis for this admission?: Yes (14) Dyslipidemia Is this a current diagnosis for this admission?: Yes (15) Hypothyroidism Qualifiers: Hypothyroidism type: unspecified Qualified Code(s): E03.9 - Hypothyroidism, unspecified (16) Morbid obesity with BMI of 45.0-49.9, adult Is this a current diagnosis for this admission?: Yes - Time Time Spent with patient: 25-34 minutes - Plan Summary Plan Summary: PICC line placement today. Consult airport planner for transfer back to [facility] in [facility].m[facility] with PICC line care and maintenance and discontinuation as per facility protocol. Intravenous Invanz administration for 9 days. Creatinine noted to increase. Continue gentle IV fluid. Decrease Invanz to 500 mg daily. Recheck creatinine in the morning.
[2017-04-06] MEDS ORDERED: NORMAL SALINE 1000 ML 1,000 ML IV PRN (09:59)
[2017-04-06] MEDS ORDERED: ERTAPENEM SODIUM 0.5 GM in NORMAL SALINE 50 ML IV SCH (10:00)
[2017-04-06] MEDS ORDERED: BACITRACIN INJ 50,000 UNIT VIAL IR PRN (10:21)
[2017-04-06] MEDS ORDERED: LIDOCAINE 0.5% INJ-PF (5 MG/ML) 50 ML SDV ONE (10:58)
[2017-04-06] MEDS ORDERED: FENTANYL CITRATE INJ/PF 100 MCG/2 ML AMPUL ONE (10:58)
[2017-04-06] MEDS: INSULIN GLARGINE,HUM.REC.ANLOG 1,000 UNIT/10 ML UNIT SUBCUT SCH (17:08)
[2017-04-06] MEDS ORDERED: INSULIN GLARGINE,HUM.REC.ANLOG 1,000 UNIT/10 ML UNIT SUBCUT SCH (18:00)
--- NOTE | 2017-04-06 20:21 | PDOC PROGRESS REPORT ---
Subjective Progress Note for:: 04/06/17 Subjective:: Patient continues to have poor appetite and poor oral fluid intake. Although her stool is formed the stool is still positive for C. difficile. She complains of a limited nausea but no vomiting nor abdominal pain. She continues to wear her BiPAP during sleep. Physical Exam Vital Signs: Temp Pulse Resp BP Pulse Ox 97.8 F 74 17 139/56 H 99 04/06/17 19:19 04/06/17 19:19 04/06/17 19:19 04/06/17 19:19 04/06/17 19:19 Intake & Output 04/05/17 04/06/17 04/07/17 06:59 06:59 06:59 Intake Total 1389 1057 1347 Balance 1389 1057 1347 Weight 140 kg 137.8 kg General appearance: PRESENT: no acute distress, cooperative, obese Head exam: PRESENT: atraumatic, normocephalic Eye exam: PRESENT: conjunctiva pale, PERRLA Mouth exam: PRESENT: dry mucosa, neck supple Respiratory exam: PRESENT: decreased breath sounds, unlabored. ABSENT: crackles , rhonchi Cardiovascular exam: PRESENT: RRR, +S1, +S2, systolic murmur - Grade 1/6. ABSENT: diastolic murmur GI/Abdominal exam: PRESENT: normal bowel sounds, soft. ABSENT: diminished bowel sounds, distended, organomegaly, tenderness Neurological exam: PRESENT: alert, awake, oriented to person, oriented to place , oriented to time Results Laboratory Results: 04/04/17 04:57 04/06/17 04:42 04/06/17 04:42 Sodium 145.1 H Potassium 4.5 Chloride 96 L Carbon Dioxide 37 H Anion Gap 12 BUN 67 H Creatinine 2.55 H Est GFR ( Amer) 23 L Est GFR (Non-Af Amer) 19 L Glucose 228 H Calcium 10.1 04/02/17 04/02/17 04/02/17 16:31 16:31 22:40 Creatine Kinase 74 79 CK-MB (CK-2) 0.23 Troponin I 0.090 04/02/17 22:40 Creatine Kinase CK-MB (CK-2) 0.51 Troponin I 0.061 Impressions: Chest X-Ray 04/02/17 07:18 IMPRESSION: Cardiomegaly mild vascular congestion. Similar findings were present on prior study. Head CT 04/02/17 07:18 IMPRESSION: MILD CHRONIC CHANGES OF ATROPHY AND MICROVASCULAR ISCHEMIA. NO ACUTE PROCESS. Assessment & Plan - Diagnosis (1) Acute kidney injury superimposed on chronic kidney disease Is this a current diagnosis for this admission?: YesPlan: The due to prerenal azotemia secondary to dehydration due to poor oral intake. Currently with slowly worsening kidney function. Urine output not quantified. Encourage patient to drink more water. I will change her IV fluids 0.45 normal saline at 65 mL an hour. (2) UTI (urinary tract infection) Qualifiers: Urinary tract infection type: site unspecified Hematuria presence: without hematuria Qualified Code(s): N39.0 - Urinary tract infection, site not specified Is this a current diagnosis for this admission?: YesPlan: Due to ESBL E. coli. (4) Hypernatremia Is this a current diagnosis for this admission?: YesPlan: Change IV fluid as above. (5) Metabolic alkalosis Is this a current diagnosis for this admission?: YesPlan: Due to volume depletion. (6) C. difficile colitis Is this a current diagnosis for this admission?: YesPlan: Patient has history of fecal transplantation about 4 years ago per son. This might be something that needs to be considered again since the patient has recurrent C. difficile infection recently. (7) Anemia, chronic disease Is this a current diagnosis for this admission?: Yes - Time Time with patient: 15-25 minutes
[2017-04-06] MEDS: PRIMIDONE 50 MG TABLET PO SCH (21:53)
[2017-04-06] MEDS: FENOFIBRATE NANOCRYSTALLIZED 145 MG TABLET PO SCH (21:54)
[2017-04-06] MEDS: ATORVASTATIN CALCIUM 20 MG TABLET PO SCH (21:54)
[2017-04-07] MEDS: INSULIN LISPRO 100 UNIT/ML 3 ML VIAL SUBCUT PRN ×3 (00:18→21:43)
[2017-04-07 04:55] LABS: ANION GAP 10 (5-19); BLOOD UREA NITROGEN 73 mg/dL (7-20); CARBON DIOXIDE 36 mmol/L (22-30); CHLORIDE 96 mmol/L (98-107); CREATININE RESULT 2.45 mg/dL (0.52-1.25); GLUCOSE 182 mg/dL (75-110); POTASSIUM 4.4 mmol/L (3.6-5.0); SODIUM 141.6 mmol/L (137-145)
[2017-04-07] MEDS: LEVOTHYROXINE SODIUM 0.088 MG TABLET PO SCH (06:02)
[2017-04-07] MEDS: PREGABALIN 75 MG CAPSULE PO SCH ×3 (06:02→21:45)
[2017-04-07] MEDS: METRONIDAZOLE 500 MG TABLET PO SCH ×3 (06:02→21:45)
[2017-04-07] MEDS: LANSOPRAZOLE 15 MG TAB.RAP.DR PO SCH (06:02)
[2017-04-07] MEDS: ENOXAPARIN SODIUM INJ 40 MG/0.4 ML DISP.SYRIN SUBCUT SCH (08:06)
--- NOTE | 2017-04-07 08:46 | PDOC PROGRESS REPORT ---
Subjective Progress Note for:: 04/07/17 Subjective:: Patient refused PICC line insertion under local anesthesia. Patient wanting sedation. This was to be scheduled early next week. No reported respiratory distress, temperature spikes. Bowel movement soft according to the patient but not watery. Physical Exam Vital Signs: Temp Pulse Resp BP Pulse Ox 98.1 F 61 20 137/52 H 100 04/07/17 07:40 04/07/17 07:40 04/07/17 07:40 04/07/17 07:40 04/07/17 07:40 Intake & Output 04/06/17 04/07/17 04/08/17 06:59 06:59 06:59 Intake Total 1057 2708 Balance 1057 2708 Weight 137.8 kg 139.6 kg General appearance: PRESENT: no acute distress, cooperative, morbidly obese Head exam: PRESENT: normocephalic Eye exam: PRESENT: EOMI Mouth exam: PRESENT: moist, neck supple Neck exam: ABSENT: JVD Respiratory exam: PRESENT: clear to auscultation emperatriz. ABSENT: rhonchi, wheezes Cardiovascular exam: PRESENT: RRR. ABSENT: gallop GI/Abdominal exam: PRESENT: soft. ABSENT: distended, tenderness Extremities exam: PRESENT: other - Trace edema Neurological exam: PRESENT: alert, awake, oriented to situation Skin exam: PRESENT: dry, warm. ABSENT: cyanosis Results Laboratory Results: 04/04/17 04:57 04/07/17 04:25 04/07/17 04:25 Sodium 141.6 Potassium 4.4 Chloride 96 L Carbon Dioxide 36 H Anion Gap 10 BUN 73 H Creatinine 2.45 H Est GFR ( Amer) 24 L Est GFR (Non-Af Amer) 20 L Glucose 182 H Calcium 10.0 04/02/17 04/02/17 04/02/17 16:31 16:31 22:40 Creatine Kinase 74 79 CK-MB (CK-2) 0.23 Troponin I 0.090 04/02/17 22:40 Creatine Kinase CK-MB (CK-2) 0.51 Troponin I 0.061 Impressions: Chest X-Ray 04/02/17 07:18 IMPRESSION: Cardiomegaly mild vascular congestion. Similar findings were present on prior study. Head CT 04/02/17 07:18 IMPRESSION: MILD CHRONIC CHANGES OF ATROPHY AND MICROVASCULAR ISCHEMIA. NO ACUTE PROCESS. Assessment & Plan - Diagnosis (1) Acute encephalopathy Is this a current diagnosis for this admission?: Yes (2) UTI (urinary tract infection) Qualifiers: Urinary tract infection type: site unspecified Hematuria presence: without hematuria Qualified Code(s): N39.0 - Urinary tract infection, site not specified Is this a current diagnosis for this admission?: Yes (3) CHF (congestive heart failure) Qualifiers: Congestive heart failure type: diastolic Congestive heart failure chronicity: chronic Qualified Code(s): I50.32 - Chronic diastolic ( congestive) heart failure Is this a current diagnosis for this admission?: Yes (4) Diarrhea Qualifiers: Diarrhea type: unspecified type Qualified Code(s): R19.7 - Diarrhea , unspecified Is this a current diagnosis for this admission?: Yes (5) Anemia in chronic kidney disease (CKD) Is this a current diagnosis for this admission?: Yes (6) Anemia, chronic disease Is this a current diagnosis for this admission?: Yes (7) CAD (coronary artery disease) Qualifiers: Coronary Disease-Associated Artery/Lesion type: [place] artery [place] vs. transplanted heart: unspecified whether [place] or transplanted heart Associated angina: without angina Qualified Code(s): I25.10 - Atherosclerotic heart disease of [place] coronary artery without angina pectoris Is this a current diagnosis for this admission?: Yes (8) COPD (chronic obstructive pulmonary disease) Qualifiers: COPD type: unspecified COPD Qualified Code(s): J44.9 - Chronic obstructive pulmonary disease, unspecified Is this a current diagnosis for this admission?: Yes (9) Depression Qualifiers: Depression Type: unspecified Qualified Code(s): F32.9 - Major depressive disorder, single episode, unspecified Is this a current diagnosis for this admission?: Yes (10) Diabetes mellitus, type II Qualifiers: Diabetes mellitus complication detail: with nephropathy 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 mellitus long term acute care registered nurse insulin use: unspecified usp insulin use status Is this a current diagnosis for this admission?: Yes (11) Hypertension Qualifiers: Hypertension type: essential hypertension Qualified Code(s): I10 - Essential (primary) hypertension Is this a current diagnosis for this admission?: Yes (12) Obstructive sleep apnea Is this a current diagnosis for this admission?: Yes (13) Peripheral neuropathy Qualifiers: Peripheral neuropathy type: polyneuropathy, unspecified Qualified Code(s): G62.9 - Polyneuropathy, unspecified Is this a current diagnosis for this admission?: Yes (14) Dyslipidemia Is this a current diagnosis for this admission?: Yes (15) Hypothyroidism Qualifiers: Hypothyroidism type: unspecified Qualified Code(s): E03.9 - Hypothyroidism, unspecified (16) Morbid obesity with BMI of 45.0-49.9, adult Is this a current diagnosis for this admission?: Yes - Time Time Spent with patient: 15-24 minutes - Plan Summary Plan Summary: Continue current antibiotics. Awaiting PICC line placement rescheduled Monday next week. Continue supportive care.
[2017-04-07] MEDS: CARVEDILOL 12.5 MG TABLET PO SCH ×2 (09:58→21:45)
[2017-04-07] MEDS: LACTOBACILLUS ACIDOPHILUS 250 MG TAB PO SCH ×2 (09:58→18:03)
[2017-04-07] MEDS: FERROUS SULFATE 325 MG TABLET PO SCH ×2 (09:58→18:03)
[2017-04-07] MEDS: SERTRALINE HCL 50 MG TABLET PO SCH (09:58)
[2017-04-07] MEDS: ASPIRIN 325 MG TABLET PO SCH (09:58)
[2017-04-07] MEDS: INSULIN GLARGINE,HUM.REC.ANLOG 1,000 UNIT/10 ML UNIT SUBCUT SCH ×2 (09:59→18:03)
[2017-04-07] MEDS: FAMOTIDINE 20 MG TABLET PO SCH ×2 (09:59→21:45)
[2017-04-07] MEDS: ERTAPENEM SODIUM 0.5 GM in NORMAL SALINE 50 ML IV SCH (10:01)
[2017-04-07] MEDS: 1/2 NORMAL SALINE 1,000 ML IV PRN (15:43)
--- NOTE | 2017-04-07 17:29 | PDOC PROGRESS REPORT ---
Subjective Progress Note for:: 04/07/17 Subjective:: Patient remains to be stable. She said she just feels sleepy but other than that does not have any complaints. She mentions that she is still having some loose stools but not as much. No other complaints. Physical Exam Vital Signs: Temp Pulse Resp BP Pulse Ox 97.6 F 58 L 22 H 126/58 H 100 04/07/17 11:26 04/07/17 14:00 04/07/17 11:26 04/07/17 11:26 04/07/17 16:00 Intake & Output 04/06/17 04/07/17 04/08/17 06:59 06:59 06:59 Intake Total 1057 2708 459 Balance 1057 2708 459 Weight 137.8 kg 139.6 kg General appearance: PRESENT: no acute distress, obese, well-developed, well- nourished Head exam: PRESENT: atraumatic, normocephalic Eye exam: PRESENT: conjunctiva pale Neck exam: PRESENT: full ROM. ABSENT: JVD Respiratory exam: PRESENT: decreased breath sounds, symmetrical, unlabored. ABSENT: crackles, rhonchi, tachypnea Cardiovascular exam: PRESENT: RRR, +S1, +S2, systolic murmur - Grade 1/6. ABSENT: diastolic murmur GI/Abdominal exam: PRESENT: normal bowel sounds, soft. ABSENT: diminished bowel sounds, distended, organomegaly, tenderness Extremities exam: PRESENT: +1 edema Skin exam: PRESENT: dry, warm Results Laboratory Results: 04/04/17 04:57 04/07/17 04:25 04/07/17 04:25 Sodium 141.6 Potassium 4.4 Chloride 96 L Carbon Dioxide 36 H Anion Gap 10 BUN 73 H Creatinine 2.45 H Est GFR ( Amer) 24 L Est GFR (Non-Af Amer) 20 L Glucose 182 H Calcium 10.0 04/02/17 04/02/17 04/02/17 16:31 16:31 22:40 Creatine Kinase 74 79 CK-MB (CK-2) 0.23 Troponin I 0.090 04/02/17 22:40 Creatine Kinase CK-MB (CK-2) 0.51 Troponin I 0.061 Impressions: Chest X-Ray 04/02/17 07:18 IMPRESSION: Cardiomegaly mild vascular congestion. Similar findings were present on prior study. Head CT 04/02/17 07:18 IMPRESSION: MILD CHRONIC CHANGES OF ATROPHY AND MICROVASCULAR ISCHEMIA. NO ACUTE PROCESS. Assessment & Plan - Diagnosis (1) Acute kidney injury superimposed on chronic kidney disease Is this a current diagnosis for this admission?: YesPlan: The due to prerenal azotemia secondary to dehydration due to poor oral intake. Currently with unchanged kidney function. Urine output not quantified. Encourage patient to drink more water. Continue IV fluids 0.45 normal saline at 65 mL an hour. (2) UTI (urinary tract infection) Qualifiers: Urinary tract infection type: site unspecified Hematuria presence: without hematuria Qualified Code(s): N39.0 - Urinary tract infection, site not specified Is this a current diagnosis for this admission?: YesPlan: Due to ESBL E. coli. (3) Sepsis Is this a current diagnosis for this admission?: Yes (4) Hypernatremia Is this a current diagnosis for this admission?: YesPlan: Resolved with current IV fluids. Encouraged to drink water. (5) Metabolic alkalosis Is this a current diagnosis for this admission?: YesPlan: Due to volume depletion. (6) C. difficile colitis Is this a current diagnosis for this admission?: YesPlan: Patient has history of fecal transplantation about 4 years ago per son. This might be something that needs to be considered again since the patient has recurrent C. difficile infection recently. (7) Anemia, chronic disease Is this a current diagnosis for this admission?: Yes - Time Time with patient: 15-25 minutes
[2017-04-07] MEDS: PRIMIDONE 50 MG TABLET PO SCH (21:44)
[2017-04-07] MEDS: FENOFIBRATE NANOCRYSTALLIZED 145 MG TABLET PO SCH (21:45)
[2017-04-07] MEDS: ATORVASTATIN CALCIUM 20 MG TABLET PO SCH (21:45)
[2017-04-08] MEDS: LANSOPRAZOLE 15 MG TAB.RAP.DR PO SCH (05:09)
[2017-04-08] MEDS: LEVOTHYROXINE SODIUM 0.088 MG TABLET PO SCH (05:09)
[2017-04-08] MEDS: METRONIDAZOLE 500 MG TABLET PO SCH ×3 (05:09→22:14)
[2017-04-08] MEDS: PREGABALIN 75 MG CAPSULE PO SCH ×3 (05:10→22:15)
--- NOTE | 2017-04-08 10:34 | PDOC PROGRESS REPORT ---
Subjective Progress Note for:: 04/08/17 Subjective:: Still complains of some diarrhea in small amounts. No reported respiratory distress, temperature spikes, chills nor fever. Patient denies any pain. There is no PND nor orthopnea. Physical Exam Vital Signs: Temp Pulse Resp BP Pulse Ox 97.4 F 70 16 148/69 H 100 04/08/17 07:37 04/08/17 07:37 04/08/17 07:37 04/08/17 07:37 04/08/17 07:37 Intake & Output 04/07/17 04/08/17 04/09/17 06:59 06:59 06:59 Intake Total 2708 2316 Balance 2708 2316 Weight 139.6 kg 141.4 kg General appearance: PRESENT: no acute distress, cooperative, morbidly obese Eye exam: PRESENT: EOMI Mouth exam: PRESENT: moist, neck supple - Dr. Neck exam: ABSENT: JVD Respiratory exam: PRESENT: clear to auscultation emperatriz Cardiovascular exam: PRESENT: RRR. ABSENT: gallop GI/Abdominal exam: PRESENT: hyperactive bowel sounds, soft. ABSENT: tenderness Extremities exam: PRESENT: other - Trace lower extremity edema Neurological exam: PRESENT: alert, awake, oriented to situation Skin exam: PRESENT: dry, warm. ABSENT: cyanosis Results Laboratory Results: 04/04/17 04:57 04/07/17 04:25 04/02/17 04/02/17 04/02/17 16:31 16:31 22:40 Creatine Kinase 74 79 CK-MB (CK-2) 0.23 Troponin I 0.090 04/02/17 22:40 Creatine Kinase CK-MB (CK-2) 0.51 Troponin I 0.061 Impressions: Chest X-Ray 04/02/17 07:18 IMPRESSION: Cardiomegaly mild vascular congestion. Similar findings were present on prior study. Head CT 04/02/17 07:18 IMPRESSION: MILD CHRONIC CHANGES OF ATROPHY AND MICROVASCULAR ISCHEMIA. NO ACUTE PROCESS. Assessment & Plan - Diagnosis (1) Acute encephalopathy Is this a current diagnosis for this admission?: Yes (2) UTI (urinary tract infection) Qualifiers: Urinary tract infection type: site unspecified Hematuria presence: without hematuria Qualified Code(s): N39.0 - Urinary tract infection, site not specified Is this a current diagnosis for this admission?: Yes (3) CHF (congestive heart failure) Qualifiers: Congestive heart failure type: diastolic Congestive heart failure chronicity: chronic Qualified Code(s): I50.32 - Chronic diastolic ( congestive) heart failure Is this a current diagnosis for this admission?: Yes (4) Diarrhea Qualifiers: Diarrhea type: unspecified type Qualified Code(s): R19.7 - Diarrhea , unspecified Is this a current diagnosis for this admission?: Yes (5) Anemia in chronic kidney disease (CKD) Is this a current diagnosis for this admission?: Yes (6) Anemia, chronic disease Is this a current diagnosis for this admission?: Yes (7) CAD (coronary artery disease) Qualifiers: Coronary Disease-Associated Artery/Lesion type: [place] artery [place] vs. transplanted heart: unspecified whether [place] or transplanted heart Associated angina: without angina Qualified Code(s): I25.10 - Atherosclerotic heart disease of [place] coronary artery without angina pectoris Is this a current diagnosis for this admission?: Yes (8) COPD (chronic obstructive pulmonary disease) Qualifiers: COPD type: unspecified COPD Qualified Code(s): J44.9 - Chronic obstructive pulmonary disease, unspecified Is this a current diagnosis for this admission?: Yes (9) Depression Qualifiers: Depression Type: unspecified Qualified Code(s): F32.9 - Major depressive disorder, single episode, unspecified Is this a current diagnosis for this admission?: Yes (10) Diabetes mellitus, type II Qualifiers: Diabetes mellitus complication detail: with nephropathy Diabetes mellitus jail insulin use: unspecified jail insulin use status Is this a current diagnosis for this admission?: Yes (11) Hypertension Qualifiers: Hypertension type: essential hypertension Qualified Code(s): I10 - Essential (primary) hypertension Is this a current diagnosis for this admission?: Yes (12) Obstructive sleep apnea Is this a current diagnosis for this admission?: Yes (13) Peripheral neuropathy Qualifiers: Peripheral neuropathy type: polyneuropathy, unspecified Qualified Code(s): G62.9 - Polyneuropathy, unspecified Is this a current diagnosis for this admission?: Yes (14) Dyslipidemia Is this a current diagnosis for this admission?: Yes (15) Hypothyroidism Qualifiers: Hypothyroidism type: unspecified Qualified Code(s): E03.9 - Hypothyroidism, unspecified (16) Morbid obesity with BMI of 45.0-49.9, adult Is this a current diagnosis for this admission?: Yes - Time Time Spent with patient: 15-24 minutes - Plan Summary Plan Summary: Continue gentle hydration. Recheck creatinine in the morning. Continue Flagyl and lactobacillus as well as Invanz. PICC line placement on 04/10/2017. Give as needed Imodium.
[2017-04-08] MEDS: INSULIN GLARGINE,HUM.REC.ANLOG 1,000 UNIT/10 ML UNIT SUBCUT SCH ×2 (10:57→18:33)
[2017-04-08] MEDS: LACTOBACILLUS ACIDOPHILUS 250 MG TAB PO SCH ×2 (10:59→18:34)
[2017-04-08] MEDS: SERTRALINE HCL 50 MG TABLET PO SCH (11:00)
[2017-04-08] MEDS: FERROUS SULFATE 325 MG TABLET PO SCH ×2 (11:00→18:34)
[2017-04-08] MEDS: CARVEDILOL 12.5 MG TABLET PO SCH ×2 (11:00→22:15)
[2017-04-08] MEDS: FAMOTIDINE 20 MG TABLET PO SCH ×2 (11:01→22:15)
[2017-04-08] MEDS: LOPERAMIDE HCL 2 MG CAPSULE PO PRN (11:01)
[2017-04-08] MEDS: ERTAPENEM SODIUM 0.5 GM in NORMAL SALINE 50 ML IV SCH (11:02)
[2017-04-08] MEDS: 1/2 NORMAL SALINE 1,000 ML IV PRN (11:17)
[2017-04-08] MEDS: ONDANSETRON 4 MG TAB.RAPDIS PO PRN (14:55)
[2017-04-08] MEDS: PRIMIDONE 50 MG TABLET PO SCH (22:14)
[2017-04-08] MEDS: ATORVASTATIN CALCIUM 20 MG TABLET PO SCH (22:14)
[2017-04-08] MEDS: FENOFIBRATE NANOCRYSTALLIZED 145 MG TABLET PO SCH (22:15)
[2017-04-08] MEDS: INSULIN LISPRO 100 UNIT/ML 3 ML VIAL SUBCUT PRN (22:32)
[2017-04-09] MEDS: LEVOTHYROXINE SODIUM 0.088 MG TABLET PO SCH (05:24)
[2017-04-09] MEDS: LANSOPRAZOLE 15 MG TAB.RAP.DR PO SCH (05:24)
[2017-04-09] MEDS: PREGABALIN 75 MG CAPSULE PO SCH ×3 (05:24→21:38)
[2017-04-09] MEDS: METRONIDAZOLE 500 MG TABLET PO SCH ×3 (05:28→21:37)
[2017-04-09 06:02] LABS: ANION GAP 9 (5-19); BLOOD UREA NITROGEN 70 mg/dL (7-20); CALCIUM 9.8 mg/dL (8.4-10.2); CARBON DIOXIDE 33 mmol/L (22-30); CHLORIDE 98 mmol/L (98-107); CREATININE RESULT 2.21 mg/dL (0.52-1.25); GLUCOSE 147 mg/dL (75-110); POTASSIUM 4.9 mmol/L (3.6-5.0); SODIUM 140.1 mmol/L (137-145)
--- NOTE | 2017-04-09 09:35 | PDOC PROGRESS REPORT ---
Subjective Progress Note for:: 04/09/17 Subjective:: Patient complains of frequent stools but staff reports soft and not watery. It is in small amounts as well. No reported temperature spikes or respiratory distress Physical Exam Vital Signs: Temp Pulse Resp BP Pulse Ox 98.3 F 61 14 135/59 H 100 04/09/17 07:32 04/09/17 07:32 04/09/17 07:32 04/09/17 07:32 04/09/17 07:32 Intake & Output 04/08/17 04/09/17 04/10/17 06:59 06:59 06:59 Intake Total 2316 3342 Balance 2316 3342 Weight 141.4 kg 143.8 kg General appearance: PRESENT: no acute distress, morbidly obese Head exam: PRESENT: normocephalic Eye exam: PRESENT: EOMI Mouth exam: PRESENT: moist, neck supple Neck exam: ABSENT: JVD Respiratory exam: PRESENT: clear to auscultation emperatriz. ABSENT: rhonchi, wheezes Cardiovascular exam: PRESENT: RRR. ABSENT: gallop GI/Abdominal exam: PRESENT: normal bowel sounds, soft. ABSENT: distended - Obese Extremities exam: PRESENT: +1 edema - Bilateral Neurological exam: PRESENT: alert, awake Skin exam: PRESENT: dry, warm. ABSENT: cyanosis Results Laboratory Results: 04/04/17 04:57 04/09/17 05:24 04/09/17 05:24 Sodium 140.1 Potassium 4.9 Chloride 98 Carbon Dioxide 33 H Anion Gap 9 BUN 70 H Creatinine 2.21 H Est GFR ( Amer) 27 L Est GFR (Non-Af Amer) 22 L Glucose 147 H Calcium 9.8 04/02/17 04/02/17 04/02/17 16:31 16:31 22:40 Creatine Kinase 74 79 CK-MB (CK-2) 0.23 Troponin I 0.090 04/02/17 22:40 Creatine Kinase CK-MB (CK-2) 0.51 Troponin I 0.061 Impressions: Chest X-Ray 04/02/17 07:18 IMPRESSION: Cardiomegaly mild vascular congestion. Similar findings were present on prior study. Head CT 04/02/17 07:18 IMPRESSION: MILD CHRONIC CHANGES OF ATROPHY AND MICROVASCULAR ISCHEMIA. NO ACUTE PROCESS. Assessment & Plan - Diagnosis (1) Acute encephalopathy Is this a current diagnosis for this admission?: Yes (2) UTI (urinary tract infection) Qualifiers: Urinary tract infection type: site unspecified Hematuria presence: without hematuria Qualified Code(s): N39.0 - Urinary tract infection, site not specified Is this a current diagnosis for this admission?: Yes (3) CHF (congestive heart failure) Qualifiers: Congestive heart failure type: diastolic Congestive heart failure chronicity: chronic Qualified Code(s): I50.32 - Chronic diastolic ( congestive) heart failure Is this a current diagnosis for this admission?: Yes (4) Diarrhea Qualifiers: Diarrhea type: unspecified type Qualified Code(s): R19.7 - Diarrhea , unspecified Is this a current diagnosis for this admission?: Yes (5) Anemia in chronic kidney disease (CKD) Is this a current diagnosis for this admission?: Yes (6) Anemia, chronic disease Is this a current diagnosis for this admission?: Yes (7) CAD (coronary artery disease) Qualifiers: Coronary Disease-Associated Artery/Lesion type: [place] artery [place] vs. transplanted heart: unspecified whether [place] or transplanted heart Associated angina: without angina Qualified Code(s): I25.10 - Atherosclerotic heart disease of [place] coronary artery without angina pectoris Is this a current diagnosis for this admission?: Yes (8) COPD (chronic obstructive pulmonary disease) Qualifiers: COPD type: unspecified COPD Qualified Code(s): J44.9 - Chronic obstructive pulmonary disease, unspecified Is this a current diagnosis for this admission?: Yes (9) Depression Qualifiers: Depression Type: unspecified Qualified Code(s): F32.9 - Major depressive disorder, single episode, unspecified Is this a current diagnosis for this admission?: Yes (10) Diabetes mellitus, type II Qualifiers: Diabetes mellitus complication detail: with nephropathy Diabetes mellitus custodial insulin use: unspecified watermelon inspector insulin use status Is this a current diagnosis for this admission?: Yes (11) Hypertension Qualifiers: Hypertension type: essential hypertension Qualified Code(s): I10 - Essential (primary) hypertension Is this a current diagnosis for this admission?: Yes (12) Obstructive sleep apnea Is this a current diagnosis for this admission?: Yes (13) Peripheral neuropathy Qualifiers: Peripheral neuropathy type: polyneuropathy, unspecified Qualified Code(s): G62.9 - Polyneuropathy, unspecified Is this a current diagnosis for this admission?: Yes (14) Dyslipidemia Is this a current diagnosis for this admission?: Yes (15) Hypothyroidism Qualifiers: Hypothyroidism type: unspecified Qualified Code(s): E03.9 - Hypothyroidism, unspecified (16) Morbid obesity with BMI of 45.0-49.9, adult Is this a current diagnosis for this admission?: Yes - Time Time Spent with patient: Less than 15 minutes - Plan Summary Plan Summary: Continue current antibiotics. Continue as needed antidiarrhea medications. Patient for PICC line placement in the morning. We will subsequently plan transferring back to [facility] after the line is in place.
[2017-04-09] MEDS: INSULIN GLARGINE,HUM.REC.ANLOG 1,000 UNIT/10 ML UNIT SUBCUT SCH ×2 (09:57→18:23)
[2017-04-09] MEDS: LACTOBACILLUS ACIDOPHILUS 250 MG TAB PO SCH ×2 (09:58→18:24)
[2017-04-09] MEDS: FERROUS SULFATE 325 MG TABLET PO SCH ×2 (09:58→18:23)
[2017-04-09] MEDS: SERTRALINE HCL 50 MG TABLET PO SCH (09:58)
[2017-04-09] MEDS: CARVEDILOL 12.5 MG TABLET PO SCH ×2 (09:58→21:37)
[2017-04-09] MEDS: LOPERAMIDE HCL 2 MG CAPSULE PO PRN (09:58)
[2017-04-09] MEDS: FAMOTIDINE 20 MG TABLET PO SCH ×2 (09:59→21:38)
[2017-04-09] MEDS: ERTAPENEM SODIUM 0.5 GM in NORMAL SALINE 50 ML IV SCH (10:03)
[2017-04-09] MEDS ORDERED: HC ACETATE/PRAMOXINE HCL 10 GM PR PRN (10:35)
[2017-04-09] MEDS: INSULIN LISPRO 100 UNIT/ML 3 ML VIAL SUBCUT PRN (21:36)
[2017-04-09] MEDS: FENOFIBRATE NANOCRYSTALLIZED 145 MG TABLET PO SCH (21:37)
[2017-04-09] MEDS: ATORVASTATIN CALCIUM 20 MG TABLET PO SCH (21:37)
[2017-04-09] MEDS: PRIMIDONE 50 MG TABLET PO SCH (21:38)
[2017-04-10] MEDS: 1/2 NORMAL SALINE 1,000 ML IV PRN (01:02)
[2017-04-10] MEDS: METRONIDAZOLE 500 MG TABLET PO SCH ×2 (06:00→14:00)
[2017-04-10] MEDS: LANSOPRAZOLE 15 MG TAB.RAP.DR PO SCH (06:00)
[2017-04-10] MEDS: PREGABALIN 75 MG CAPSULE PO SCH ×2 (06:00→14:00)
[2017-04-10] MEDS: LEVOTHYROXINE SODIUM 0.088 MG TABLET PO SCH (06:01)
[2017-04-10 06:52] LABS: HEMATOCRIT 30.1 % (36.0-47.0); HEMOGLOBIN 9.8 g/dL (12.0-15.5); HGB HCT DIFFERENCE -0.7; MEAN CORPUSCULAR HEMOGLOBIN 30.2 pg (27.0-33.4); MEAN CORPUSCULAR HGB CONC 32.5 g/dL (32.0-36.0); MEAN CORPUSCULAR VOLUME 93 fl (80-97); RED BLOOD COUNT 3.24 10^6/uL (3.72-5.28); RED CELL DISTRIBUTION WIDTH 14.5 % (11.5-14.0)
[2017-04-10] MEDS ORDERED: FENTANYL CITRATE INJ/PF 100 MCG/2 ML AMPUL ONE (08:53)
[2017-04-10] MEDS ORDERED: LIDOCAINE 0.5% INJ-PF (5 MG/ML) 50 ML SDV ONE (08:53)
[2017-04-10] MEDS ORDERED: MIDAZOLAM 2 MG/2 ML INJ ONE (08:53)
[2017-04-10] MEDS ORDERED: HEPARIN SOD (PORCINE) 5,000 UNIT/ML 1 ML SYRINGE ONE (08:53)
[2017-04-10] MEDS ORDERED: BACITRACIN INJ 50,000 UNIT VIAL INJ PRN (09:00)
--- NOTE | 2017-04-10 11:22 | RADIOLOGY REPORT (SQ) ---
EXAM DESCRIPTION: CHEST SINGLE VIEW COMPLETED DATE/TIME: 04/10/2017 11:10 am REASON FOR STUDY: s/p tunnelled picc line COMPARISON: 04/02/2017 EXAM PARAMETERS: NUMBER OF VIEWS: One view. TECHNIQUE: Single frontal radiographic view of the chest acquired. RADIATION DOSE: NA LIMITATIONS: None. FINDINGS: LUNGS AND PLEURA: No opacities, masses or pneumothorax. No pleural effusion. MEDIASTINUM AND HILAR STRUCTURES: No masses. Contour normal. HEART AND VASCULAR STRUCTURES: Cardiomegaly with mild pulmonary vascular prominence but no aden CHF. BONES: No acute findings. HARDWARE: A right sided catheter has its tip in the superior vena cava. OTHER: No other significant finding. IMPRESSION: Cardiomegaly with pulmonary vascular prominence but no aden CHF. TECHNICAL DOCUMENTATION: JOB ID: [id number]
[2017-04-10] MEDS: FERROUS SULFATE 325 MG TABLET PO SCH (11:50)
[2017-04-10] MEDS: LACTOBACILLUS ACIDOPHILUS 250 MG TAB PO SCH (11:50)
[2017-04-10] MEDS: INSULIN GLARGINE,HUM.REC.ANLOG 1,000 UNIT/10 ML UNIT SUBCUT SCH (11:51)
[2017-04-10] MEDS: SERTRALINE HCL 50 MG TABLET PO SCH (11:51)
[2017-04-10] MEDS: CARVEDILOL 12.5 MG TABLET PO SCH (11:51)
[2017-04-10] MEDS: FAMOTIDINE 20 MG TABLET PO SCH (11:51)
[2017-04-10] MEDS: ERTAPENEM SODIUM 0.5 GM in NORMAL SALINE 50 ML IV SCH (11:56)
--- NOTE | 2017-04-10 12:20 | Operative Report ---
Operative Report DATE OF SURGERY: 04/10/17 PREOPERATIVE DIAGNOSIS: UTI,. CKD. Multiple co morbidities. POSTOPERATIVE DIAGNOSIS: UTI,. CKD. Multiple co morbidities. OPERATION: on.#1 Ultrasound evaluation of right INternal Jugular vein. #2 insertion of tunneled PICC line via real time access in right internal Jugular vein. #3Angiogram and [id number] SURGEON: BEN BARON HAND SEWER SHOES: None ANESTHESIA: Moderate Sedation TISSUE REMOVED OR ALTERED: Not applicable COMPLICATIONS: None ESTIMATED BLOOD LOSS: 5 mL. INTRAOPERATIVE FINDINGS: Satisfactory right internal jugular vein, estimated to be 1.2 cm in diameter. Satisfactory access and support for tunneled PICC line. Angiogram demonstrated smooth flow of contrast into the right atrium, easy egress of blood. PROCEDURE: After obtaining informed consent, the patient was taken to the Assistant Statistician and positioned supine. The right neck and chest were prepared with chlorhexidine and draped out with sterile linen. After the " universal timeout", in which it was verified that the patient continued to receive antibiotic, the procedure commenced. A steriley sheathed ultrasound probe was used to evaluate the right internal jugular vein. Local anesthesia was infiltrated adjacent to the probe. Access into the right internal jugular vein was obtained using a micropuncture needle, followed by micropuncture wire and then a micropuncture catheter. This was followed by introduction of a 0.018 guidewire the tip of which was placed down into the inferior vena cava . A tunneled PICC catheter was now positioned over the chest and an exit site marked and locally anesthetized ,the catheter was placed between the 2 incisions. Proximally, the catheter was now positioned using a peel-away sheath, after dilation. Easy ingress of heparinized solution and egress of blood obtained through the port. A completion angiogram was done by injecting contrast. The findings were as dictated. The neck incision was now closed using interrupted 3-0 PDS to the subcutaneous tissues, the catheter was anchored at the exit site using 3-0 PDS. A Biopatch device was now placed adjacent to the catheter. Dressings were applied and the procedure concluded. Exposure time: 0.4 minutes. Exposure: 0.7 mgray per centimeter squared per centimeters squared. Contrast amount: 5 mL of [id number] low osmolality. Copies of the dictated operative report for Dr. Ben Prajapati MD.concluded. Copies of the dictated operative report for Dr. Ben Prajapati MD.
[2017-04-10 12:40] VITALS: BP 155/52
--- NOTE | 2017-04-10 13:44 | PDOC TRANSFER SUMMARY ---
General - Admit/Disc Date/PCP Admission Date/Primary Care Provider: 04/02/17 09:39 PANDA RODRIGUEZ Discharge Date: 04/10/17 - Discharge Diagnosis (1) Acute encephalopathy Is this a current diagnosis for this admission?: Yes (2) UTI (urinary tract infection) Is this a current diagnosis for this admission?: Yes (3) CHF (congestive heart failure) Is this a current diagnosis for this admission?: Yes (4) Diarrhea Is this a current diagnosis for this admission?: Yes (5) Anemia in chronic kidney disease (CKD) Is this a current diagnosis for this admission?: Yes (6) Anemia, chronic disease Is this a current diagnosis for this admission?: Yes (7) CAD (coronary artery disease) Is this a current diagnosis for this admission?: Yes (8) COPD (chronic obstructive pulmonary disease) Is this a current diagnosis for this admission?: Yes (9) Depression Is this a current diagnosis for this admission?: Yes (10) Diabetes mellitus, type II Is this a current diagnosis for this admission?: Yes (11) Hypertension Is this a current diagnosis for this admission?: Yes (12) Obstructive sleep apnea Is this a current diagnosis for this admission?: Yes (13) Peripheral neuropathy Is this a current diagnosis for this admission?: Yes (14) Dyslipidemia Is this a current diagnosis for this admission?: Yes (16) Morbid obesity with BMI of 45.0-49.9, adult Is this a current diagnosis for this admission?: Yes - Additional Information Resuscitation Status: Full Code Discharge Diet: Cardiac - low fat, low salt, Diabetic - no concentrated sweets Discharge Activity: Activity As Tolerated, Balance Activity w/Rest Home Medications: Aspirin [Aspirin 325 mg Tablet] 325 mg PO DAILY 04/02/17 Atorvastatin Calcium [Lipitor 20 mg Tablet] 20 mg PO QHS 04/02/17 Carvedilol [Coreg 12.5 mg Tablet] 12.5 mg PO Q12 04/02/17 Fenofibrate Nanocrystallized [Tricor 145 mg Tablet] 145 mg PO QHS 04/02/17 Ferrous Sulfate [Feosol 325 mg Tablet] 325 mg PO BID 04/02/17 Furosemide [Lasix 80 mg Tablet] 80 mg PO DAILY 04/02/17 Insulin Glargine,Hum.rec.anlog [Lantus Insulin 100 Unit/1 ml 10 ml] 55 units SQ BID 04/02/17 Insulin Lispro [Humalog Insulin (Lispro) 100 unit/mL] 0 units SQ .PERSLIDINGSCALE 04/02/17 Levalbuterol HCl [Xopenex Neb 1.25 mg/3 ml Ampul] 3 ml NEB RTQ8HP PRN 04/02/17 Levothyroxine Sodium [Synthroid] 88 mg PO QAM 04/02/17 Omeprazole 20 mg PO QAM 04/02/17 Ondansetron HCl [Zofran 4 mg Tablet] 4 mg PO Q6HP PRN 04/02/17 Pregabalin [Lyrica 75 mg Capsule] 75 mg PO Q8 04/02/17 Primidone [Mysoline 50 mg Tablet] 25 mg PO QHS 04/02/17 Sertraline HCl [Zoloft 50 mg Tablet] 25 mg PO DAILY 04/02/17 Acidoph/L.bulg/Bif.b/S.thermop [Bacid Caplet] 1 each PO BID #30 tablet 04/10/17 Ertapenem Sodium [Invanz Inj 1 gm Vial] 0.5 gm IV DAILY vial 04/10/17 Hc Acetate/Pramoxine HCl [Epifoam Hc 1% Aerosol Foam] 1 applic SC Q4HP PRN can 04/10/17 Loperamide HCl [Imodium 2 mg Capsule] 2 mg PO Q6HP PRN capsule 04/10/17 Metronidazole [Flagyl 500 mg Tablet] 250 mg PO Q8 tablet 04/10/17 Tramadol HCl [Ultram 50 mg Tablet] 50 mg PO TIDP PRN #20 tablet 04/10/17 Additional Information: Intravenous Invanz for a total of 5 days. Oral Flagyl and lactobacillus for a total of 3 weeks. Discontinue PICC line when IV antibiotics completed. History of Present Illness Admission Date/PCP: 04/02/17 09:39 PANDA RODRIGUEZ Patient complains of: Confusion History of Present Illness: LORETO JOSHI is a 66 year old female with h/o DM, HTN, CHF, Sleep Apnea, CKD 3/4 who went on transient HD late last year , recurring UTI was brug[place] into the hospital [place] the [place] with altered mental status , shaking chills. She has been diagnosed with UTI and begun on antibiotics and currently feels a lot better. She was having some respiratory difficulty and was placed on BiPAP. Her respiratory status has improved however she appears to have congestive heart failure on exam. Patient has a long history of congestive heart failure .Presently feels a lot better.No uremic symptoms. Not dyspneic unless she exerts . Hospital Course Hospital Course: The patient was admitted to [facility]. Patient reportedly encephalopathic due to urinary tract infection. There was a question of congestive heart failure and therefore the patient was begun on IV and diuretics. Patient was begun on intravenous Invanz due to history of ESBL E. coli. Nephrology was consulted. Patient's creatinine noted to increase and therefore diuretics was discontinued and the patient was maintained on gentle IV hydration. Urine culture eventually grew ESBL E. coli. Patient then referred to interventional radiology for PICC line placement via internal jugular vein due to underlying chronic kidney disease. Dr. Prajapati with vascular surgery was then consulted for the placement of line. This was tried initially but patient refused under local anesthesia and therefore conscious sedation was then planned. In the meantime the patient continued treatment for the urinary tract infection. Her creatinine was monitored and it was improving with hydration. There was no congestive heart failure symptoms acutely. Course was complicated by diarrhea that was positive for Clostridium difficile toxin and the patient was begun on Flagyl and lactobacillus. As needed Imodium was given. The patient's diarrhea improved. Eventually the patient underwent PICC line placement under conscious sedation. Patient tolerated the procedure well. Patient was then eventually referred to program planner for continued IV antibiotic and PICC line care and eventual discontinuation in alf Facility. The rest of the hospital stays essentially unremarkable. Patient eventually transferred back to the alf facility for continued treatment and long-term care. Physical Exam Vital Signs: Temp Pulse Resp BP Pulse Ox 97.4 F 69 19 155/52 H 96 04/10/17 12:08 04/10/17 12:08 04/10/17 12:08 04/10/17 12:08 04/10/17 12:08 Intake & Output 04/09/17 04/10/17 04/11/17 06:59 06:59 06:59 Intake Total 3342 2590 0 Balance 3342 2590 0 Weight 143.8 kg 143.6 kg General appearance: PRESENT: no acute distress, morbidly obese Head exam: PRESENT: normocephalic Eye exam: PRESENT: EOMI Mouth exam: PRESENT: moist, neck supple Neck exam: ABSENT: JVD Respiratory exam: PRESENT: clear to auscultation emperatriz. ABSENT: rhonchi, wheezes Cardiovascular exam: PRESENT: RRR. ABSENT: gallop GI/Abdominal exam: PRESENT: normal bowel sounds, soft. ABSENT: distended - Obese, tenderness Extremities exam: PRESENT: other - Trace lower extremity edema bilateral Neurological exam: PRESENT: alert, awake, oriented to situation Skin exam: PRESENT: dry, warm. ABSENT: cyanosis Results Laboratory Results: 04/10/17 05:58 04/09/17 05:24 04/10/17 05:58 WBC 8.0 RBC 3.24 L Hgb 9.8 L Hct 30.1 L MCV 93 MCH 30.2 MCHC 32.5 RDW 14.5 H Plt Count 184 04/02/17 04/02/17 04/02/17 16:31 16:31 22:40 Creatine Kinase 74 79 CK-MB (CK-2) 0.23 Troponin I 0.090 04/02/17 22:40 Creatine Kinase CK-MB (CK-2) 0.51 Troponin I 0.061 Impressions: Head CT 04/02/17 07:18 IMPRESSION: MILD CHRONIC CHANGES OF ATROPHY AND MICROVASCULAR ISCHEMIA. NO ACUTE PROCESS. Chest X-Ray 04/10/17 10:30 IMPRESSION: Cardiomegaly with pulmonary vascular prominence but no aden CHF. Transfer Plan - Disposition Transfer Plan: Transfer back to [facility] for long-term care and completion of IV antibiotics - Time Spent with Patient Time spent with patient: Less than 30 Minutes Qualifiers PATEINT BEING DISCHARGED WITH ANY OF THE FOLLOWING DIAGNOSIS?: No Plan Discharge Plan: Follow-up with primary care physician in 1 week. Follow-up with nephrology service, Dr. Day in 1-2 weeks. Time Spent: Less than 30 Minutes
--- NOTE | 2017-04-10 14:23 | RADIOLOGY REPORT (SQ) ---
EXAM DESCRIPTION: TUNNELED CENTRAL LINE; GUIDANCE FLUOROSCOPIC COMPLETED DATE/TIME: 04/10/2017 1:56 pm; 04/10/2017 1:39 pm REASON FOR STUDY: PROLONG IV ANTIBIOTICS/ TUNNELED PICC LINE INSERT; PROLONG IV ANTIBIOTICS COMPARISON: Chest films 04/02/2017, 03/04/2017 FLUOROSCOPY TIME: 0.4 minutes 1 series of digital angiographic images saved to PACS. TECHNIQUE: Intra-operative images acquired during surgical procedure to evaluate progress. NUMBER OF IMAGES: Cine fluoroscopic images. LIMITATIONS: None. FINDINGS: Intra procedural imaging and fluoro during central venous catheter placement by Dr. Vale ms. Please see the operative report for further details IMPRESSION: Intra procedural imaging and fluoro COMMENT: Quality ID [id number]: Final reports for procedures using fluoroscopy that document radiation exp osure indices, or exposure time and number of fluorographic images (if radiation exposure indices are not available) Please consult full operative report of the attending physician for description of the procedure. TECHNICAL DOCUMENTATION: JOB ID: [id number] [employer]- All Rights Reserved
== END 2017-04-10 16:18 | DRG 70 ==
LOC: ER 07:02 → EH 09:29 → UNDOADMIN 09:29 → EH 09:39 → 3W 11:30
PROVIDERS: ADMIT Internal Medicine; ATTEND Internal Medicine
PROC: 5A09357 Assistance with Respiratory Ventilation, Less than 24 Consecutive Hours, Continuous Positive Airway Pressure (ICD-10-PCS; principal; 2017-04-10)
PROC: 06H033Z Insertion of Infusion Device into Inferior Vena Cava, Percutaneous Approach (ICD-10-PCS; 2017-04-10)
PROC: B549ZZA Ultrasonography of Inferior Vena Cava, Guidance (ICD-10-PCS; 2017-04-10)
PROC: B5191ZA Fluoroscopy of Inferior Vena Cava using Low Osmolar Contrast, Guidance (ICD-10-PCS; 2017-04-10)
DX: G93.49 Other encephalopathy (principal); N17.0 Acute kidney failure with tubular necrosis; A04.7 Enterocolitis due to Clostridium difficile; N39.0 Urinary tract infection, site not specified; I13.0 Hypertensive heart and chronic kidney disease with heart failure and stage 1 through stage 4 chronic kidney disease, or unspecified chronic kidney disease; I50.32 Chronic diastolic (congestive) heart failure; Z68.42 Body mass index [BMI] 45.0-49.9, adult; B96.20 Unspecified Escherichia coli [E. coli] as the cause of diseases classified elsewhere; Z16.12 Extended spectrum beta lactamase (ESBL) resistance; E11.22 Type 2 diabetes mellitus with diabetic chronic kidney disease; N18.3 Chronic kidney disease, stage 3 (moderate); D63.1 Anemia in chronic kidney disease; I25.10 Atherosclerotic heart disease of native coronary artery without angina pectoris; J44.9 Chronic obstructive pulmonary disease, unspecified; F32.9 Major depressive disorder, single episode, unspecified; G47.33 Obstructive sleep apnea (adult) (pediatric); E78.5 Hyperlipidemia, unspecified; E66.01 Morbid (severe) obesity due to excess calories; E11.42 Type 2 diabetes mellitus with diabetic polyneuropathy; Z79.4 Long term (current) use of insulin; Z79.82 Long term (current) use of aspirin; Z79.899 Other long term (current) drug therapy; Z85.41 Personal history of malignant neoplasm of cervix uteri; Z90.49 Acquired absence of other specified parts of digestive tract; Z87.891 Personal history of nicotine dependence
CPT/HCPCS: 36415; 36558; 51701; 70450; 71010; 76937; 77001; 80048; 80053; 80307; 81001; 82550; 82553; 82803; 82962; 83605; 83735; 83880; 84484; 85025; 85027; 87040; 87086; 87088; 87186; 87493; 93005; 93010; 94660; 96365; 96367; 99291; G8978-GP; G8979-GP; J0690; J1335; J1644; J1650; J1815; J1940; J2250; J2405; J3010; J3370; J3490; J7030; S0119

== ENCOUNTER → 2017-06-13 | Outpatient (CLI) | payer MEDICARE, MEDICAID ==
--- NOTE | 2017-06-13 12:34 | RADIOLOGY REPORT (SQ) ---
EXAM DESCRIPTION: FOOT BILATERAL 3 VIEWS COMPLETED DATE/TIME: 06/13/2017 11:33 am REASON FOR STUDY: NON-PRS CHRONIC ULCER OTH PRT RIGHT AND LEFT FOOT W FAT LAYER EXPOSE (L97.5 L97.51 2 NON-PRS CHRONIC ULCER OTH PRT RIGHT FOOT W FAT LAYER L97.522 NON-PRS CHRONIC ULCER OTH PRT LEFT F OOT W FAT LAYER COMPARISON: None. NUMBER OF VIEWS: Three views. TECHNIQUE: AP, lateral and oblique radiographic images acquired of the right and left foot. LIMITATIONS: None. FINDINGS: Right foot: MINERALIZATION: Normal. BONES: No acute fracture or dislocation. Old healed right 5th metatarsal fracture with periosteal ne w bone along the diaphysis. Old healed right 5th toe proximal phalanx fracture. JOINTS: No effusions. SOFT TISSUES: There is soft tissue irregularity over the distal tip of the right great toe and along the lateral aspect of the right great toenail med. Radiopaque ointment is in the great toe ulcers. No aggressive demineralization of the great toe distal phalanx worrisome for osteomyelitis. There is radiopaque ointment in the soft tissues between the right 4th and 5th toes. A skin ulcer ma y be present in this area. No underlying bony demineralization or periostitis worrisome for osteomye litis. Diffuse forefoot soft tissue swelling. OTHER: Small plantar calcaneal spur Left foot: MINERALIZATION: Normal. BONES: No acute fracture or dislocation. No worrisome bone lesions. JOINTS: No effusions. SOFT TISSUES: There is a 1 cm soft tissue ulcer over the dorsal aspect of the left foot, at about the level of the 2nd metatarsal. There is adjacent soft tissue swelling throughout the forefoot without underlying bony demineralization or periostitis to suggest osteomyelitis. Radiopaque ointment is in t he ulcer. OTHER: No other significant finding. IMPRESSION: Bilateral foot cellulitis with forefoot soft tissue swelling. There are ulcers present bilaterally without adjacent bony demineralization worrisome for osteomyelitis TECHNICAL DOCUMENTATION: JOB ID: [id number] [employer]- All Rights Reserved
== END ==
LOC: RAD 10:58
PROVIDERS: ATTEND Preventive Medicine Undersea and Hyperbaric Medicine
DX: L97.512 Non-pressure chronic ulcer of other part of right foot with fat layer exposed (principal); L97.522 Non-pressure chronic ulcer of other part of left foot with fat layer exposed

== ENCOUNTER 2017-09-27 14:14 | Inpatient (IN) | payer MEDICARE, MEDICAID ==
[2017-09-27] MEDS ORDERED: CEFTRIAXONE 1 GM/D5W RTU 1 GM/50 ML RTUPB IV ONE (14:29)
[2017-09-27] MEDS ORDERED: NORMAL SALINE 1000 ML 1,000 ML IV ONE (14:43)
[2017-09-27 14:50] LABS: ABSOLUTE BASOPHILS # (AUTO) 0.1 10^3/uL (0.0-0.2); ABSOLUTE LYMPHOCYTES (AUTO) 1.1 10^3/uL (0.5-4.7); ABSOLUTE MONOCYTES (AUTO) 0.9 10^3/uL (0.1-1.4); ABSOLUTE NEUT (AUTO) 13.8 10^3/uL (1.7-8.2); BASOPHILS % (AUTO) 0.4 % (0-2); EOSINOPHILS % (AUTO) 0.2 % (0-6); HEMATOCRIT 32.7 % (36.0-47.0); HEMOGLOBIN 10.9 g/dL (12.0-15.5); LYMPHOCYTES % (AUTO) 6.7 % (13-45); MEAN CORPUSCULAR HEMOGLOBIN 31.3 pg (27.0-33.4); MEAN CORPUSCULAR HGB CONC 33.4 g/dL (32.0-36.0); MEAN CORPUSCULAR VOLUME 94 fl (80-97); MONOCYTES % (AUTO) 5.6 % (3-13); RED BLOOD COUNT 3.49 10^6/uL (3.72-5.28); RED CELL DISTRIBUTION WIDTH 13.6 % (11.5-14.0); SEGMENTED NEUTROPHILS % (AUTO) 87.1 % (42-78); WHITE BLOOD COUNT 15.8 10^3/uL (4.0-10.5)
[2017-09-27 14:53] LABS: VENOUS BLOOD BASE EXCESS 4.9 mmol/L; VENOUS BLOOD HCO3 30.6 mmol/L (20-32); VENOUS BLOOD PH 7.4 (7.30-7.42)
[2017-09-27 15:00] LABS: PROTHROMBIN TIME 14.8 SEC (11.4-15.4)
--- NOTE | 2017-09-27 15:04 | ER Document Report ---
ED General - General Stated Complaint: DIFFICULTY BREATHING Time Seen by Provider: 09/27/17 14:29 TRAVEL OUTSIDE OF THE [place] IN LAST 30 DAYS: No - HPI Patient complains to provider of: Altered mental status fever Notes: Patient presents from local long-term care facility for altered mental status and fever. According to EMS she reported the patient was otherwise normal day prior to arrival. Today patient more lethargic did have a fever of approximately 103 the long-term. Patient was given Tylenol. Patient does have a history of encephalopathy from infections in the past also recent C. difficile diagnosis. Patient has finished her antibiotics was to be Flagyl. By my evaluation patient is lethargic alert to voice moves all 4 extremities. Patient does not give any meaningful history. - Related Data Allergies/Adverse Reactions: No Known Allergies Allergy (Verified 04/07/16 16:28) Home Medications: Current Home Medications Cyanocobalamin (Vitamin B-12) [Vitamin B-12] 500 mcg PO DAILY 09/27/17 [History] Ergocalciferol (Vitamin D2) [Vitamin D2] 50,000 unit PO ASDIR PRN 09/27/17 [ History] L. Rhamnosus GG/Inulin [Culturelle Capsule] 1 each PO BID 09/27/17 [History] Past Medical History - Social History Smoking Status: Unknown if Ever Smoked Family History: Hypertension - Past Medical History Cardiac Medical History: Reports: Hx Atrial Fibrillation - Paroxysmal, Hx Congestive Heart Failure, Hx Coronary Artery Disease, Hx Heart Attack, Hx Hypercholesterolemia, Hx Hypertension Denies: Hx DVT, Hx Pulmonary Embolism Pulmonary Medical History: Reports: Hx COPD, Hx Pneumonia, Hx Sleep Apnea Denies: Hx Asthma, Hx Bronchitis Neurological Medical History: Denies: Hx Cerebrovascular Accident, Hx Seizures Endocrine Medical History: Reports: Hx Diabetes Mellitus Type 1, Hx Diabetes Mellitus Type 2, Hx Hypothyroidism. 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 Denies: Hx Hepatitis Past Surgical History: Reports: Hx Abdominal Surgery - umbilical hernia, Hx Appendectomy, Hx Section, Hx Cholecystectomy, Hx Herniorrhaphy, Other - Breast cyst, history of fecal transplant for C. difficile. Denies: Hx Hysterectomy - Immunizations Hx Diphtheria, Pertussis, Tetanus Vaccination: Yes Hx Pneumococcal Vaccination: 08/06/15 Review of Systems - Review of Systems -: Yes ROS unobtainable due to patient's medical condition - Altered mental status Physical Exam - Vital signs Vitals: Pulse Ox 97 09/27/17 14:27 Interpretation: Hypoxic, Febrile - General General appearance: Lethargic - HEENT Head: Normocephalic, Atraumatic Eyes: Normal Conjunctiva: Normal Cornea: Normal Pupils: PERRL Neck: Normal - Respiratory Respiratory status: Other - Hypoxia on room air transitioned to nasal cannula Chest status: Nontender Breath sounds: Normal Chest palpation: Normal - Cardiovascular Rhythm: Regular Heart sounds: Normal auscultation Murmur: No - Abdominal Inspection: Normal, Morbidly Obese Distension: No distension Bowel sounds: Normal Tenderness: Nontender Organomegaly: No organomegaly - Back Back: Normal, Nontender - Extremities General upper extremity: Normal inspection, Nontender, Normal ROM General lower extremity: Normal inspection, Nontender - Neurological Neuro grossly intact: Yes Cognition: Normal Anitra Coma Scale Eye Opening: To Voice Greer Coma Scale Verbal: Confused Anitra Coma Scale Motor: Localizes to Pain Greer Coma Scale Total: 12 - Psychological Associated symptoms: Other - Patient is lethargic will respond to voice moans to painful stimuli. - Skin Skin Temperature: Warm Skin Moisture: Dry Skin Color: Normal Course - Re-evaluation Re-evalutation: 09/27/17 19:31 Workup shows urinary tract infection. Altered mental status. Patient slight hypoxia with some mild vascular congestion on chest x-ray. Hypoxia improved with nasal cannula. Will refer to the hospitalist service for further evaluation. - Vital Signs Vital signs: Temp Pulse Resp BP Pulse Ox 158/93 H 91 L 09/27/17 18:44 09/27/17 18:44 - Laboratory Result Diagrams: 09/27/17 14:39 09/27/17 14:39 Laboratory results interpreted by me: 09/27/17 09/27/17 09/27/17 14:39 14:39 15:07 WBC 15.8 H RBC 3.49 L Hgb 10.9 L Hct 32.7 L Seg Neutrophils % 87.1 H Lymphocytes % 6.7 L Absolute Neutrophils 13.8 H Sodium 149.3 H Carbon Dioxide 31 H BUN 62 H Creatinine 2.08 H Est GFR ( Amer) 29 L Est GFR (Non-Af Amer) 24 L Glucose 148 H POC Glucose 153 H Direct Bilirubin 0.6 H Urine Protein Ur Leukocyte Esterase 09/27/17 15:40 WBC RBC Hgb Hct Seg Neutrophils % Lymphocytes % Absolute Neutrophils Sodium Carbon Dioxide BUN Creatinine Est GFR ( Amer) Est GFR (Non-Af Amer) Glucose POC Glucose Direct Bilirubin Urine Protein 30 H Ur Leukocyte Esterase LARGE H Discharge - Discharge Clinical Impression: Morbid obesity with BMI of 45.0-49.9, adult UTI (urinary tract infection) Qualifiers: Urinary tract infection type: site unspecified Hematuria presence: without hematuria Qualified Code(s): N39.0 - Urinary tract infection, site not specified Altered mental status Qualifiers: Altered mental status type: unspecified Qualified Code(s): R41.82 - Altered mental status, unspecified Condition: Good Disposition: ADMITTED INPATIENT Admitting Provider: Hospitalist - [place] [facility] Admitted: [facility]
--- NOTE | 2017-09-27 15:08 | RADIOLOGY REPORT (SQ) ---
EXAM DESCRIPTION: CHEST PA/LAT COMPLETED DATE/TIME: 09/27/2017 2:57 pm REASON FOR STUDY: fever ams COMPARISON: 08/30/2017 NUMBER OF VIEWS: Two views. TECHNIQUE: Frontal and lateral radiographic views of the chest acquired. LIMITATIONS: None. FINDINGS: LUNGS AND PLEURA: No opacities, masses or pneumothorax. No pleural effusion. MEDIASTINUM AND HILAR STRUCTURES: No masses or contour abnormality. HEART AND VASCULAR STRUCTURES: Cardiac enlargement. Vascular congestion. BONES: No acute findings. HARDWARE: None in the chest. OTHER: No other significant finding. IMPRESSION: CARDIAC ENLARGEMENT. VASCULAR CONGESTION. TECHNICAL DOCUMENTATION: JOB ID: [id number] [employer]- All Rights Reserved
[2017-09-27 15:28] LABS: ALANINE AMINOTRANSFERASE 32 U/L (9-52); ALBUMIN 3.8 g/dL (3.5-5.0); ALKALINE PHOSPHATASE 48 U/L (38-126); ANION GAP 13 (5-19); ASPARTATE AMINO TRANSFERASE 35 U/L (14-36); BILIRUBIN,DIRECT 0.6 mg/dL (0.0-0.4); BILIRUBIN,TOTAL 0.9 mg/dL (0.2-1.3); BLOOD UREA NITROGEN 62 mg/dL (7-20); CARBON DIOXIDE 31 mmol/L (22-30); CHLORIDE 105 mmol/L (98-107); CREATININE RESULT 2.08 mg/dL (0.52-1.25); GLUCOSE 148 mg/dL (75-110); POTASSIUM 4.7 mmol/L (3.6-5.0); SODIUM 149.3 mmol/L (137-145); TOTAL PROTEIN 6.9 g/dL (6.3-8.2)
--- NOTE | 2017-09-27 15:28 | RADIOLOGY REPORT (SQ) ---
EXAM DESCRIPTION: CT HEAD WITHOUT COMPLETED DATE/TIME: 09/27/2017 3:18 pm REASON FOR STUDY: ams COMPARISON: 08/30/2017 TECHNIQUE: Axial images acquired through the brain without intravenous contrast. Images reviewed wi th bone, brain and subdural windows. Images stored on PACS. All CT scanners at this facility use dose modulation, iterative reconstruction, and/or weight based d osing when appropriate to reduce radiation dose to as low as reasonably achievable (ALARA). [facility]: Dose Right [facility]: CareDose [facility]: Dose Right [facility]: Teradose 4D [facility]: Smart Whotever RADIATION DOSE: CT Rad equipment meets quality standard of care and radiation dose reduction techniq ues were employed. CTDIvol: 64.6 mGy. DLP: 1163 mGy-cm. mGy. LIMITATIONS: None. FINDINGS: VENTRICLES: Prominent. CEREBRUM: No masses. No hemorrhage. No midline shift. Areas of low density in the white matter mos t likely due to chronic micro-vascular ischemic change. No evidence for acute infarction. CEREBELLUM: No masses. No hemorrhage. No alteration of density. No evidence for acute infarction. EXTRAAXIAL SPACES: Mild age-related involutional change. No fluid collections. No masses. ORBITS AND GLOBE: No intra- or extraconal masses. Normal contour of globe without masses. CALVARIUM: No fracture. PARANASAL SINUSES: No fluid or mucosal thickening. SOFT TISSUES: No mass or hematoma. OTHER: No other significant finding. IMPRESSION: MILD CHRONIC CHANGES OF ATROPHY AND MICROVASCULAR ISCHEMIA. NO ACUTE PROCESS. EVIDENCE OF ACUTE STROKE: NO. TECHNICAL DOCUMENTATION: JOB ID: [id number] Quality ID # [id number]: Final reports with documentation of one or more dose reduction techniques (e.g., Au tomated exposure control, adjustment of the mA and/or kV according to patient size, use of iterative reconstruction technique) 2010 [employer]- All Rights Reserved
[2017-09-27 15:34] LABS: LIPASE 68.2 U/L (23-300); MAGNESIUM 1.6 mg/dL (1.6-2.3)
[2017-09-27 16:12] LABS: APPEARANCE,URINE SLIGHTLY-CLOUDY; BILIRUBIN,URINE NEGATIVE (NEGATIVE); GLUCOSE, URINE NEGATIVE (NEGATIVE); KETONES,URINE NEGATIVE (NEGATIVE); LEUKOCYTE ESTERASE,URINE LARGE (NEGATIVE); NITRITE,URINE NEGATIVE (NEGATIVE); PROTEIN,URINE 30 mg/dL (NEGATIVE); URINE SPECIFIC GRAVITY 1.011; UROBILINOGEN,URINE NEGATIVE mg/dL (<2.0)
[2017-09-27 16:20] LABS: URINE BARBITURATES SCREEN UNCONFIRMED POSITIVE; URINE METHADONE SCREEN NEGATIVE; URINE OPIATES LOW NEGATIVE; URINE PHENCYCLIDINE SCREEN NEGATIVE
[2017-09-27] MEDS ORDERED: ACETAMINOPHEN 650 MG SUPP.RECT PR PRN (18:18)
[2017-09-27] MEDS ORDERED: NORMAL SALINE 1000 ML 1,000 ML IV PRN (18:18)
[2017-09-27] MEDS ORDERED: LEVALBUTEROL HCL NEB 1.25 MG/3 ML AMPUL NEB PRN (18:23)
[2017-09-27] MEDS ORDERED: 1/2 NORMAL SALINE 1,000 ML IV PRN (19:04)
[2017-09-27] MEDS ORDERED: ACETAMINOPHEN 325 MG TABLET ONE (19:36)
--- NOTE | 2017-09-27 19:42 | EKG REPORT ---
SEVERITY:- ABNORMAL ECG - SINUS RHYTHM MULTIPLE ATRIAL PREMATURE COMPLEXES : Confirmed by: Mara Romero MD 27-Sep-2017 19:41:58
[2017-09-27] MEDS ORDERED: FUROSEMIDE INJ/PF 40 MG/4 ML SDV IV ONE (20:30)
[2017-09-27] MEDS: BUDESONIDE NEB 0.5 MG/2 ML AMPUL NEB SCH (21:04)
[2017-09-27] MEDS: LEVALBUTEROL HCL NEB 1.25 MG/3 ML AMPUL NEB SCH (21:04)
[2017-09-27] MEDS: FAMOTIDINE INJ/PF 20 MG/2 ML SDV IV SCH (21:35)
[2017-09-27] MEDS: ERTAPENEM SODIUM 1 GM in NORMAL SALINE 50 ML IV SCH (21:37)
[2017-09-28] MEDS: LEVALBUTEROL HCL NEB 1.25 MG/3 ML AMPUL NEB SCH ×4 (02:05→20:33)
[2017-09-28 05:59] LABS: ABSOLUTE BASOPHILS # (AUTO) 0.1 10^3/uL (0.0-0.2); ABSOLUTE LYMPHOCYTES (AUTO) 1.5 10^3/uL (0.5-4.7); ABSOLUTE MONOCYTES (AUTO) 0.7 10^3/uL (0.1-1.4); ABSOLUTE NEUT (AUTO) 11.2 10^3/uL (1.7-8.2); ANION GAP 11 (5-19); BASOPHILS % (AUTO) 0.5 % (0-2); BLOOD UREA NITROGEN 56 mg/dL (7-20); CALCIUM 9.7 mg/dL (8.4-10.2); CARBON DIOXIDE 32 mmol/L (22-30); CHLORIDE 108 mmol/L (98-107); CREATININE RESULT 2.21 mg/dL (0.52-1.25); EOSINOPHILS % (AUTO) 0.1 % (0-6); GLUCOSE 193 mg/dL (75-110); HEMATOCRIT 30.9 % (36.0-47.0); HEMOGLOBIN 10.1 g/dL (12.0-15.5); HGB HCT DIFFERENCE -0.6; MAGNESIUM 1.5 mg/dL (1.6-2.3); MEAN CORPUSCULAR HEMOGLOBIN 30.6 pg (27.0-33.4); MEAN CORPUSCULAR HGB CONC 32.8 g/dL (32.0-36.0); MEAN CORPUSCULAR VOLUME 93 fl (80-97); MONOCYTES % (AUTO) 5.3 % (3-13); PHOSPHORUS 3.6 mg/dL (2.5-4.5); POTASSIUM 3.8 mmol/L (3.6-5.0); RED BLOOD COUNT 3.31 10^6/uL (3.72-5.28); RED CELL DISTRIBUTION WIDTH 13.7 % (11.5-14.0); SEGMENTED NEUTROPHILS % (AUTO) 83.1 % (42-78); SODIUM 151.2 mmol/L (137-145); WHITE BLOOD COUNT 13.5 10^3/uL (4.0-10.5)
[2017-09-28] MEDS: LEVOTHYROXINE SODIUM 0.088 MG TABLET PO SCH (06:13)
[2017-09-28] MEDS: ACETAMINOPHEN 325 MG TABLET PO PRN ×2 (07:58→16:35)
[2017-09-28] MEDS ORDERED: LEVOTHYROXINE SODIUM 0.088 MG TABLET PO SCH (08:00)
[2017-09-28] MEDS ORDERED: DEXTROSE 40% GEL 15 GM TUBE PO PRN ×2 (09:09)
[2017-09-28] MEDS: BUDESONIDE NEB 0.5 MG/2 ML AMPUL NEB SCH ×2 (09:09→20:33)
[2017-09-28] MEDS ORDERED: DEXTROSE 50%-WATER 25 GM/50 ML DISP.SYRIN IV PRN ×2 (09:09)
[2017-09-28] MEDS ORDERED: GLUCAGON,HUMAN RECOMB 1 MG INJ IM PRN (09:09)
[2017-09-28] MEDS ORDERED: VANCOMYCIN HCL 0 MG in DEXTROSE 5%-WATER 250 ML IV NR (09:15)
[2017-09-28] MEDS: FAMOTIDINE INJ/PF 20 MG/2 ML SDV IV SCH (10:01)
[2017-09-28] MEDS ORDERED: DEXTROSE 5%-WATER 1000 ML 1,000 ML IV PRN (12:46)
--- NOTE | 2017-09-28 13:32 | PDOC H&P ---
History of Present Illness Admission Date/PCP: 09/27/17 17:56 PANDA RODRIGUEZ History of Present Illness: LORETO JOSHI is a 67 year old female from [facility]. Patient brought in for change in mentation. Patient is very drowsy and is unable to give any history. Per patient's son, patient was doing well the day or so before. On the day of admission patient was found to be lethargic and febrile with a temperature of 103. There is concern that patient may have UTI as she has a history of recurrent UTI with Klebsiella and ESBL. In the ED patient UA was concerning for UTI. Patient was given a dose of ceftriaxone. Patient was also found to have a leukocytosis of 16,000. She was hypernatremic at 149. Patient flew screen was negative CT scan of the head did not show any acute findings. Hospitalist service called to admit the patient for further workup and evaluation. Past Medical History Cardiac Medical History: Reports: Atrial Fibrillation - Paroxysmal, Congestive Heart Failure, Coronary Artery Disease, Myocardial Infarction, Hyperlipidema, Hypertension Denies: DVT, Pulmonary Embolism Pulmonary Medical History: Reports: Chronic Obstructive Pulmonary Disease (COPD) , Pneumonia, Sleep Apnea Denies: Asthma, Bronchitis Neurological Medical History: Denies: Seizures Endocrine Medical History: Reports: Diabetes Mellitus Type 2, Hypothyroidism Denies: Hyperthyroidism Renal/ Medical History: Reports: End Stage Renal Disease Malignancy Medical History: Reports: Cervical Cancer GI Medical History: Denies: Cirrhosis, Hepatitis Musculoskeltal Medical History: Reports: Arthritis, Gout Skin Medical History: Denies: Eczema, Psoriasis Psychiatric Medical History: Reports: Depression Hematology: Reports: Anemia Infectious Medical History: Reports: Clostridium Difficile - History of severe persistent C. difficile while in [place] and underwent fec Past Surgical History Past Surgical History: Reports: Appendectomy, Section, Cholecystectomy , Herniorrhaphy, Other - Breast cyst, history of fecal transplant for C. difficile Denies: Hysterectomy Social History Smoking Status: Former Smoker Number of Years Smokin Last Time Smoked: 20 years ago Frequency of Alcohol Use: None Hx Recreational Drug Use: No Drugs: None Hx Prescription Drug Abuse: No - Advance Directive Resuscitation Status: Full Code Family History Family History: Hypertension Parental Family History Reviewed: Yes Children Family History Reviewed: Yes Sibling(s) Family History Reviewed.: Yes Medication/Allergy Home Medications: Acetaminophen [Tylenol 325 mg Tablet] 650 mg PO Q4HP PRN 09/27/17 Atorvastatin Calcium [Lipitor 20 mg Tablet] 20 mg PO QHS 09/27/17 Carboxymethylcellulose Sodium [Refresh Tears] 1 drop OU TID 09/27/17 Carvedilol [Coreg 12.5 mg Tablet] 12.5 mg PO Q12 09/27/17 Cetirizine HCl [Zyrtec 10 mg Tablet] 1 tab PO DAILY 09/27/17 Cyanocobalamin (Vitamin B-12) [Vitamin B-12 500 mcg Tablet] 500 mcg PO DAILY Ergocalciferol (Vitamin D2) [Vitamin D2] 50,000 unit PO WESA@1000 09/27/17 Fenofibrate Nanocrystallized [Tricor 145 mg Tablet] 145 mg PO QHS 09/27/17 Ferrous Sulfate [Feosol 325 mg Tablet] 325 mg PO BID 09/27/17 Furosemide [Lasix 80 mg Tablet] 80 mg PO BID 09/27/17 Insulin Glargine,Hum.rec.anlog [Saul Le] 200 unit SQ QAM 09/27/17 Insulin Lispro [Humalog Insulin 100 Unit/1 ml 3 ml Vial] 15 unit SUBCUT MEALS L. Rhamnosus GG/Inulin [Culturelle Capsule] 1 each PO BID 09/27/17 Levalbuterol HCl [Xopenex Neb 1.25 mg/3 ml Ampul] 1.25 mg NEB RTQ8HP PRN Levothyroxine Sodium [Synthroid 0.088 mg Tablet] 88 mcg PO Q6AM 09/27/17 Loperamide HCl [Imodium 2 mg Capsule] 2 mg PO Q6HP PRN 09/27/17 Omeprazole 20 mg PO Q6AM 09/27/17 Ondansetron HCl [Zofran 4 mg Tablet] 1 tab PO Q6HP PRN 09/27/17 Pregabalin [Lyrica 75 mg Capsule] 75 mg PO Q8 09/27/17 Primidone [Mysoline 50 Mg Tablet] 25 mg PO QHS 09/27/17 Sertraline HCl [Zoloft 50 mg Tablet] 25 mg PO DAILY 09/27/17 Tramadol HCl [Ultram 50 mg Tablet] 50 mg PO TIDP PRN 09/27/17 Allergies/Adverse Reactions: No Known Allergies Allergy (Verified 04/07/16 16:28) Review of Systems ROS unobtainable: Due to mental status Physical Exam Vital Signs: Temp Pulse Resp BP Pulse Ox 102.4 F H 175/80 H 94 09/27/17 19:39 09/27/17 19:01 09/27/17 19:01 Intake & Output 09/26/17 09/27/17 09/28/17 06:59 06:59 06:59 Weight 142 kg General appearance: PRESENT: mild distress, morbidly obese Head exam: PRESENT: normocephalic Eye exam: PRESENT: PERRLA Mouth exam: PRESENT: dry mucosa Neck exam: ABSENT: tracheal deviation Respiratory exam: PRESENT: accessory muscle use - Abdominal breathing, tachypnea , wheezes. ABSENT: unlabored Cardiovascular exam: PRESENT: RRR, +S1, +S2 GI/Abdominal exam: PRESENT: diminished bowel sounds, other - Protuberant. ABSENT: guarding, tenderness Rectal exam: PRESENT: deferred Gentrourinary exam: PRESENT: indwelling catheter Extremities exam: PRESENT: pedal edema Neurological exam: PRESENT: altered Skin exam: PRESENT: dry, intact, warm. ABSENT: cyanosis, rash Results Impressions: Chest X-Ray 09/27/17 14:29 IMPRESSION: CARDIAC ENLARGEMENT. VASCULAR CONGESTION. Head CT 09/27/17 14:30 IMPRESSION: MILD CHRONIC CHANGES OF ATROPHY AND MICROVASCULAR ISCHEMIA. NO ACUTE PROCESS. EVIDENCE OF ACUTE STROKE: NO. Assessment & Plan - Diagnosis (1) Acute encephalopathy Plan: Appears to have a metabolic encephalopathy most likely due to UTI. Once patient underlying condition is treated patient mentation should improve. CT of the head was negative for any acute process. (2) Sepsis Qualifiers: Sepsis type: Escherichia coli Qualified Code(s): A41.51 - Sepsis due to Escherichia coli [E. coli] Is this a current diagnosis for this admission?: Yes Plan: Patient presented with fever, leukocytosis, and possible source being the urine. Patient currently on ertapenem as she has grown ESBL in the past. Will continue to follow urine cultures. Blood cultures are also pending. (3) COPD (chronic obstructive pulmonary disease) Qualifiers: COPD type: unspecified COPD Qualified Code(s): J44.9 - Chronic obstructive pulmonary disease, unspecified Plan: Patient has a history of COPD possibly with mild exacerbation as patient is currently wheezing with some signs of distress. Will continue patient on Xopenex and add budesonide. ABG is ordered. Patient is started on BiPAP. (4) UTI (urinary tract infection) Qualifiers: Urinary tract infection type: site unspecified Hematuria presence: without hematuria Qualified Code(s): N39.0 - Urinary tract infection, site not specified Plan: Patient UA was concerning for UTI. Patient has history of Klebsiella, ESBL, E. coli UTI. Patient was given a dose of ceftriaxone in the ED. To err on the side of caution patient was started on ertapenem. Continue to follow urine cultures. (5) Morbid obesity with BMI of 45.0-49.9, adult Is this a current diagnosis for this admission?: Yes Plan: Patient will be counseled on portion control when more awake and alert. (6) CHF (congestive heart failure) Qualifiers: Congestive heart failure type: diastolic Congestive heart failure chronicity: chronic Qualified Code(s): I50.32 - Chronic diastolic (congestive ) heart failure Is this a current diagnosis for this admission?: Yes Plan: Patient with chronic diastolic heart failure. Patient had echo done in 2016 that showed EF of 60%. Patient does have some pulmonary congestion on chest x- ray and is having some wheezing. Will give patient 60 mg IV push of Lasix and monitor. (7) Diabetes mellitus, type II Qualifiers: Diabetes mellitus complication detail: with nephropathy Diabetes mellitus detention insulin use: unspecified detention insulin use status Is this a current diagnosis for this admission?: Yes Plan: She with history of type 2 diabetes. Patient will be started on sliding scale insulin with before meals at bedtime fingersticks. (8) Hypernatremia Plan: Patient possibly has hypernatremia due to dehydration. Will start patient on half-normal saline. Patient has received several boluses of normal saline in the ED therefore sodium may trend up for trend back down. Will continue to monitor. (9) CKD (chronic kidney disease) stage 4, GFR 15-29 ml/min Is this a current diagnosis for this admission?: Yes Plan: Patient appears to have CKD stage IV. Patient creatinine appears stable from previous labs. Will continue to monitor. - Time Time Spent: 30 to 50 Minutes Anticipated discharge: SNF Within: Other - Inpatient Certification Medical Necessity: Significant Comorbidiites Make Outpatient Treatment Too Risky
--- NOTE | 2017-09-28 13:54 | PDOC PROGRESS REPORT ---
Subjective Progress Note for:: 09/28/17 Subjective:: Patient is a 59-year-old female from [facility] presenting with metabolic encephalopathy due to sepsis. Patient is prone to recurrent UTIs however patient blood cultures are currently growing gram-positive cocci in chains. Son is at bedside. Patient is a little bit more awake today. Patient was febrile into the early mornings but is currently afebrile. Physical Exam Vital Signs: Temp Pulse Resp BP Pulse Ox 99.0 F 76 19 145/62 H 100 09/28/17 11:55 09/28/17 12:00 09/28/17 12:00 09/28/17 12:00 09/28/17 12:00 Intake & Output 09/27/17 09/28/17 09/29/17 06:59 06:59 06:59 Intake Total 110 90 Output Total 1875 400 Balance -1765 -310 Weight 134.8 kg General appearance: PRESENT: no acute distress, morbidly obese Head exam: PRESENT: normocephalic Eye exam: PRESENT: EOMI. ABSENT: scleral icterus Mouth exam: PRESENT: moist, tongue midline Neck exam: ABSENT: carotid bruit, JVD, lymphadenopathy, thyromegaly Respiratory exam: PRESENT: clear to auscultation emperatriz, unlabored, wheezes. ABSENT: rales, rhonchi Cardiovascular exam: PRESENT: RRR. ABSENT: diastolic murmur, rubs, systolic murmur Pulses: PRESENT: normal dorsalis pedis pul Vascular exam: PRESENT: normal capillary refill GI/Abdominal exam: PRESENT: normal bowel sounds, soft. ABSENT: distended, guarding, mass, organolmegaly, rebound, tenderness Rectal exam: PRESENT: deferred Gentrourinary exam: PRESENT: indwelling catheter Extremities exam: PRESENT: full ROM, pedal edema. ABSENT: calf tenderness, clubbing Neurological exam: PRESENT: alert, awake, oriented to person, oriented to place , oriented to time, oriented to situation, CN II-XII grossly intact. ABSENT: motor sensory deficit Psychiatric exam: PRESENT: appropriate affect, normal mood. ABSENT: homicidal ideation, suicidal ideation Skin exam: PRESENT: dry, intact, warm. ABSENT: cyanosis, rash Results Laboratory Results: 09/28/17 05:25 09/28/17 05:25 09/28/17 09/28/17 09/28/17 05:25 05:25 05:25 WBC 13.5 H RBC 3.31 L Hgb 10.1 L Hct 30.9 L MCV 93 MCH 30.6 MCHC 32.8 RDW 13.7 Plt Count 122 L Seg Neutrophils % 83.1 H Lymphocytes % 11.0 L Monocytes % 5.3 Eosinophils % 0.1 Basophils % 0.5 Absolute Neutrophils 11.2 H Absolute Lymphocytes 1.5 Absolute Monocytes 0.7 Absolute Eosinophils 0.0 Absolute Basophils 0.1 Sodium 151.2 H Potassium 3.8 Chloride 108 H Carbon Dioxide 32 H Anion Gap 11 BUN 56 H Creatinine 2.21 H Est GFR ( Amer) 27 L Est GFR (Non-Af Amer) 22 L Glucose 193 H Calcium 9.7 Phosphorus 3.6 Magnesium 1.5 L Ammonia 21.1 Impressions: Chest X-Ray 09/27/17 14:29 IMPRESSION: CARDIAC ENLARGEMENT. VASCULAR CONGESTION. Head CT 09/27/17 14:30 IMPRESSION: MILD CHRONIC CHANGES OF ATROPHY AND MICROVASCULAR ISCHEMIA. NO ACUTE PROCESS. EVIDENCE OF ACUTE STROKE: NO. Assessment & Plan - Diagnosis (1) Gram-positive cocci bacteremia Is this a current diagnosis for this admission?: Yes Plan: She growing gram-positive cocci in change in 2 bottles. Patient started on vancomycin. Plan is to repeat cultures in the morning. Cardiac echo is being ordered to evaluate for obvious signs of endocarditis. (2) Sepsis Qualifiers: Sepsis type: Streptococcus, unspecified Qualified Code(s): A40.9 - Streptococcal sepsis, unspecified; A40 - Streptococcal sepsis Is this a current diagnosis for this admission?: Yes Plan: Patient urine culture growing gram-negative rods. Patient blood cultures growing gram-positive cocci in chains. Patient on ertapenem for her UTI patient started on vancomycin for her blood cultures. Will redraw blood cultures in the morning. Will also order cardiac echo to evaluate for any valvular abnormalities concerning for possible endocarditis. Patient now afebrile. Leukocytosis is trending down. (3) CKD (chronic kidney disease) stage 4, GFR 15-29 ml/min Is this a current diagnosis for this admission?: Yes Plan: She has a CKD stage IV. Patient had a small bump in her creatinine. Will continue with gentle IV hydration and repeat BMP in the morning. (4) UTI (urinary tract infection) Qualifiers: Urinary tract infection type: site unspecified Hematuria presence: without hematuria Qualified Code(s): N39.0 - Urinary tract infection, site not specified Plan: Culture growing gram-negative rods. As stated patient has grown E. coli ESBL and Klebsiella in the past. Patient currently on ertapenem. Follow cultures and adjust antibiotics accordingly. (5) Morbid obesity with BMI of 45.0-49.9, adult Is this a current diagnosis for this admission?: Yes Plan: Patient will be counseled on portion control. (6) Acute encephalopathy Plan: Appears to have a metabolic encephalopathy most likely due sepsis. Her mentation improved today. (7) CHF (congestive heart failure) Qualifiers: Congestive heart failure type: diastolic Congestive heart failure chronicity: chronic Qualified Code(s): I50.32 - Chronic diastolic (congestive ) heart failure Is this a current diagnosis for this admission?: Yes Plan: Sheet with some vascular congestion on chest x-ray. Patient continued on her Coreg. Pain patient's Lasix while trying to correct her hypernatremia. However patient should be resumed on her Lasix 80 mg p.o. when appropriate. (8) Diabetes mellitus, type II Qualifiers: Diabetes mellitus complication detail: with nephropathy Diabetes mellitus jail insulin use: unspecified jail insulin use status Is this a current diagnosis for this admission?: Yes Plan: Will continue patient on her sliding scale. Patient also takes 15 this of this program her meals. Will continue with before meals at bedtime glucose checks. May require more correction she is being started on D5 water for her hypernatremia. (9) Hypernatremia Plan: Likely worse today. Patient will be started on D5 water at 75 cc an hour for 1 bag. Patient should be monitored closely for signs of volume overload. (10) COPD (chronic obstructive pulmonary disease) Qualifiers: COPD type: unspecified COPD Qualified Code(s): J44.9 - Chronic obstructive pulmonary disease, unspecified Plan: She continued on Xopenex and Pulmicort. Will not start patient on systemic steroids as she has gram-positive bacteremia. (11) Sleep apnea Qualifiers: Sleep apnea type: unspecified type Qualified Code(s): G47.30 - Sleep apnea , unspecified Is this a current diagnosis for this admission?: Yes Plan: Patient does have history of sleep apnea she uses CPAP at correction. She is currently on BiPAP here. - Time Time Spent with patient: 15-24 minutes
[2017-09-28] MEDS: MAGNESIUM SULFATE/D5W 1 GM/100 ML RTUPB IV SCH ×2 (14:06→15:04)
[2017-09-28] MEDS: VANCOMYCIN HCL 1,250 MG in DEXTROSE 5%-WATER 250 ML IV SCH (16:12)
[2017-09-28] MEDS: INSULIN LISPRO 100 UNIT/ML 3 ML VIAL SUBCUT PRN (17:30)
[2017-09-28] MEDS: INSULIN LISPRO 100 UNIT/ML 3 ML VIAL SUBCUT SCH (17:35)
[2017-09-28] MEDS: FUROSEMIDE 80 MG TABLET PO SCH (17:35)
[2017-09-28] MEDS: ONDANSETRON HCL INJ/PF 4 MG/2 ML SDV IV PRN (22:10)
[2017-09-28] MEDS: ERTAPENEM SODIUM 1 GM in NORMAL SALINE 50 ML IV SCH (22:45)
[2017-09-29] MEDS: LEVALBUTEROL HCL NEB 1.25 MG/3 ML AMPUL NEB SCH ×4 (02:00→20:14)
[2017-09-29] MEDS: LEVOTHYROXINE SODIUM 0.088 MG TABLET PO SCH (05:44)
[2017-09-29] MEDS: PREGABALIN 75 MG CAPSULE PO SCH ×3 (05:44→22:31)
[2017-09-29] MEDS: ACETAMINOPHEN 325 MG TABLET PO PRN (05:45)
[2017-09-29] MEDS: ATORVASTATIN CALCIUM 20 MG TABLET PO SCH ×2 (05:48→22:26)
[2017-09-29] MEDS: CARVEDILOL 12.5 MG TABLET PO SCH ×3 (05:48→22:26)
[2017-09-29] MEDS: FAMOTIDINE INJ/PF 20 MG/2 ML SDV IV SCH ×3 (05:48→22:27)
[2017-09-29 06:54] LABS: ABSOLUTE BASOPHILS # (AUTO) 0.1 10^3/uL (0.0-0.2); ABSOLUTE LYMPHOCYTES (AUTO) 1.5 10^3/uL (0.5-4.7); ABSOLUTE MONOCYTES (AUTO) 0.8 10^3/uL (0.1-1.4); BASOPHILS % (AUTO) 0.6 % (0-2); EOSINOPHILS % (AUTO) 0.3 % (0-6); HEMATOCRIT 30.3 % (36.0-47.0); HEMOGLOBIN 10.2 g/dL (12.0-15.5); HGB HCT DIFFERENCE 0.3; LYMPHOCYTES % (AUTO) 14.9 % (13-45); MEAN CORPUSCULAR HEMOGLOBIN 31.6 pg (27.0-33.4); MEAN CORPUSCULAR HGB CONC 33.8 g/dL (32.0-36.0); MEAN CORPUSCULAR VOLUME 94 fl (80-97); MONOCYTES % (AUTO) 7.8 % (3-13); RED BLOOD COUNT 3.24 10^6/uL (3.72-5.28); RED CELL DISTRIBUTION WIDTH 13.8 % (11.5-14.0); SEGMENTED NEUTROPHILS % (AUTO) 76.4 % (42-78); WHITE BLOOD COUNT 10.4 10^3/uL (4.0-10.5)
[2017-09-29 07:07] LABS: ANION GAP 12 (5-19); BLOOD UREA NITROGEN 47 mg/dL (7-20); CALCIUM 9.4 mg/dL (8.4-10.2); CARBON DIOXIDE 33 mmol/L (22-30); CHLORIDE 103 mmol/L (98-107); CREATININE RESULT 2.08 mg/dL (0.52-1.25); GLUCOSE 199 mg/dL (75-110); SODIUM 147.8 mmol/L (137-145)
[2017-09-29] MEDS: FUROSEMIDE 80 MG TABLET PO SCH ×2 (08:34→18:37)
[2017-09-29] MEDS: SERTRALINE HCL 50 MG TABLET PO SCH (08:35)
[2017-09-29] MEDS: INSULIN LISPRO 100 UNIT/ML 3 ML VIAL SUBCUT PRN (08:39)
[2017-09-29] MEDS: INSULIN LISPRO 100 UNIT/ML 3 ML VIAL SUBCUT SCH ×3 (08:46→18:36)
[2017-09-29] MEDS: BUDESONIDE NEB 0.5 MG/2 ML AMPUL NEB SCH ×2 (08:55→20:14)
[2017-09-29] MEDS: ONDANSETRON HCL INJ/PF 4 MG/2 ML SDV IV PRN (09:08)
--- NOTE | 2017-09-29 12:52 | PDOC PROGRESS REPORT ---
Subjective Progress Note for:: 09/29/17 Subjective:: The patient is a 67-year-old female who normally resides in a skilled facility. She was brought into the hospital for worsening mental status. She was found to have sepsis. The source of her sepsis appears to be gram-positive cocci in her bloodstream and a urinary tract infection. She is currently receiving vancomycin and ertapenem. She has a history of ESBL producing E. coli and Klebsiella in the urine. Today, her only complaint was nausea and vomiting. She is moving her bowels. Physical Exam Vital Signs: Temp Pulse Resp BP Pulse Ox 99.4 F 77 18 150/58 H 96 09/29/17 08:06 09/29/17 08:55 09/29/17 08:55 09/29/17 08:06 09/29/17 08:55 Intake & Output 09/28/17 09/29/17 09/30/17 06:59 06:59 06:59 Intake Total 110 1375 Output Total 1875 1675 Balance -1765 -300 Weight 134.8 kg 136 kg Additional comments: Morning, the patient was on her BiPAP at approximately 730, but at 830 she was off her BiPAP. She was conversing and able to answer questions appropriately. She appears to be mildly tachypneic but not in acute or aden distress. Her lungs are diminished but clear. Cardiac exam is distant but regular without murmurs, gallops or rubs. The abdomen appears to be firm in the upper right and left quadrants but soft in the lower right and left quadrants. She does not complain of pain with palpation. Bowel sounds are present in the lower quadrants. She does not have guarding or rebound noted and there are no hernias or masses present. The lower extremities are warm to touch. Patient is considered to have generalized anasarca but this is nonpitting. Skin is warm dry and intact without lesions or rashes. Results Laboratory Results: 09/29/17 06:38 09/29/17 06:38 09/29/17 09/29/17 06:38 06:38 WBC 10.4 RBC 3.24 L Hgb 10.2 L Hct 30.3 L MCV 94 MCH 31.6 MCHC 33.8 RDW 13.8 Plt Count 122 L Seg Neutrophils % 76.4 Lymphocytes % 14.9 Monocytes % 7.8 Eosinophils % 0.3 Basophils % 0.6 Absolute Neutrophils 8.0 Absolute Lymphocytes 1.5 Absolute Monocytes 0.8 Absolute Eosinophils 0.0 Absolute Basophils 0.1 Sodium 147.8 H Potassium 4.0 Chloride 103 Carbon Dioxide 33 H Anion Gap 12 BUN 47 H Creatinine 2.08 H Est GFR ( Amer) 29 L Est GFR (Non-Af Amer) 24 L Glucose 199 H Calcium 9.4 Magnesium 2.0 Impressions: Chest X-Ray 09/27/17 14:29 IMPRESSION: CARDIAC ENLARGEMENT. VASCULAR CONGESTION. Head CT 09/27/17 14:30 IMPRESSION: MILD CHRONIC CHANGES OF ATROPHY AND MICROVASCULAR ISCHEMIA. NO ACUTE PROCESS. EVIDENCE OF ACUTE STROKE: NO. Assessment & Plan - Diagnosis (1) CKD (chronic kidney disease) stage 4, GFR 15-29 ml/min Is this a current diagnosis for this admission?: Yes Plan: Monitor renal function and electrolytes closely. I have stopped IV fluids. (2) Gram-positive cocci bacteremia Is this a current diagnosis for this admission?: Yes Plan: Blood cultures are growing group B strep. I would like to tailor antibiotics. I will review cultures and try to discontinue Vanco when able. (3) Sleep apnea Qualifiers: Sleep apnea type: unspecified type Qualified Code(s): G47.30 - Sleep apnea , unspecified Is this a current diagnosis for this admission?: Yes Plan: Continue BiPAP. (4) UTI (urinary tract infection) Qualifiers: Urinary tract infection type: site unspecified Hematuria presence: without hematuria Qualified Code(s): N39.0 - Urinary tract infection, site not specified Plan: Continue ertapenem until culture is available. (5) Morbid obesity with BMI of 45.0-49.9, adult Is this a current diagnosis for this admission?: Yes Plan: The patient's super morbid obesity makes her care more difficult. (6) Acute encephalopathy Is this a current diagnosis for this admission?: Yes (7) CHF (congestive heart failure) Qualifiers: Congestive heart failure type: diastolic Congestive heart failure chronicity: chronic Qualified Code(s): I50.32 - Chronic diastolic (congestive ) heart failure Is this a current diagnosis for this admission?: Yes Plan: Volume status is difficult to determine secondary to the patient's obesity. However, her creatinine remained stable and her edema is nonpitting. Because she is eating and drinking and going to stop her IV fluids. (8) COPD (chronic obstructive pulmonary disease) Qualifiers: COPD type: unspecified COPD Qualified Code(s): J44.9 - Chronic obstructive pulmonary disease, unspecified Is this a current diagnosis for this admission?: Yes Plan: Currently, we are holding on systemic corticosteroids. The patient is receiving Xopenex and Pulmicort. (9) DVT prophylaxis Is this a current diagnosis for this admission?: Yes Plan: Will augment with pharmacological. 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 This is correa secondary to her advanced renal failure. (12) Hypernatremia Is this a current diagnosis for this admission?: Yes Plan: imProving. Will follow. (13) Nausea & vomiting Qualifiers: Vomiting type: unspecified Vomiting Intractability: intractable Qualified Code(s): R11.2 - Nausea with vomiting, unspecified - Time Time Spent with patient: 25-34 minutes - Inpatient Certification Medical Necessity: Significant Comorbidiites Make Outpatient Treatment Too Risky , Need Close Monitoring Due to Risk of Patient Decompensation, Need for IV Antibiotics, Risk of Complication if Not Cared For in Hospital
--- NOTE | 2017-09-29 13:17 | XCELERA REPORT ---
[address] [address] Transthoracic Echocardiogram Report Name: LORETO JOSHI Age: 67 yrs Gender: Female : 1950 Patient Status: Inpatient Patient Location: [facility] Study Date: 09/29/2017 09:35 AM Height: 63 in Weight: 297 lb BSA: 2.3 m2 Procedure: A complete two-dimensional transthoracic echocardiogram was performed (2D, M-mode, spectral and color flow Doppler). The study was technically difficult with many images being suboptimal in quality. Reason For Study: bacteremia Ordering Physician: JORGE BOWSER Performed By: Nadine Varma Interpretation Summary The study was technically difficult with many images being suboptimal in quality. Left ventricular systolic function is low normal. The Ejection Fraction estimate is 50-55% The left ventricle is grossly normal size. There is mild concentric left ventricular hypertrophy. Doppler measurements suggest pseudonormalized left ventricular relaxation, which is associated with grade II/IV or mild to moderate diastolic dysfunction Regional wall motion abnormalities cannot be excluded due to limited visualization. The right ventricle is grossly normal size. The right ventricular systolic function is normal. The left atrium is moderately dilated. The right atrium is normal in size There is a mild to moderate amount of mitral regurgitation There is mild to moderate mitral leaflet calcification. There is moderate mitral annular calcification. There is no mitral valve stenosis. There is mild to moderate aortic stenosis There is a peak gradient of 25 mm of Hg. There is a trace amount of aortic regurgitation There is a trace to mild amount of tricuspid regurgitation There is mild pulmonary hypertension by echo Right ventricular systolic pressure is estimated to be elevated at 40- 50mmHg. The aortic root is not well visualized. The inferior vena cava was not well visualized There is no pericardial effusion. MMode/2D Measurements & Calculations RVDd: 2.9 cm LVIDd: 5.2 cm FS: 29.3 % EPSS: 1.3 cm IVSd: 1.2 cm LVIDs: 3.7 cm EDV(Teich): 132.1 mlMV Diam: 2.2 cm LVPWd: 1.2 cm ESV(Teich): 58.4 ml EF(Teich): 55.8 % Ao root diam: 2.5 cm LVOT diam: 1.8 cm Ao root area: 4.9 [id number] area: 2.5 cm2 LA dimension: 4.5 cm Doppler Measurements & Calculations MV E max tiera: MV V2 max: MV P1/2t max tiera: Ao V2 max: 170.9 cm/sec 203.3 cm/sec 173.4 cm/sec 242.8 cm/sec MV A max tiera: MV max PG: MV P1/2t: 84.7 msec Ao max P.1 cm/sec 16.5 mmHg MVA(P1/2t): 2.6 cm2 23.6 mmHg MV E/A: 1.2 MV V2 mean: MV dec slope: Ao V2 mean: 112.3 cm/sec 599.2 cm/sec2 171.3 cm/sec MV mean PG: Ao mean P.2 mmHg 14.0 mmHg MV V2 VTI: 64.9 cm Ao V2 VTI: 51.9 cm MV area (1 diam): ASIA(I,D): 1.1 cm2 3.9 cm2 ASIA(V,D): 1.0 cm2 MVA(VTI): 0.84 cm2 MV Flow area (1diam): 3.9 cm2 LV V1 max PG: MR max tiera: MR(RF 1 diam): SV(MV 1 diam): 3.9 mmHg 607.1 cm/sec 16.1 % 251.9 ml LV V1 mean PG: MR max PG: SI(MV 1 diam): 1.7 mmHg 147.4 mmHg 110.1 ml/m2 LV V1 max: SV(LVOT): 54.8 ml 98.1 cm/sec LV V1 mean: 59.9 cm/sec LV V1 VTI: 22.1 cm LV dP/dt: 1298 mmHg/s PA V2 max: TR max tiera: RF(MV,Ao)(1 diam): - 106.7 cm/sec 289.9 cm/sec 0.01 PA max PG: TR max PG: RF(MV,LVOT)(1diam): 4.6 mmHg 33.6 mmHg 0.78 Left Ventricle The left ventricle is grossly normal size. There is mild concentric left ventricular hypertrophy. Left ventricular systolic function is low normal. The Ejection Fraction estimate is 50-55%. Doppler measurements suggest pseudonormalized left ventricular relaxation, which is associated with grade II/IV or mild to moderate diastolic dysfunction. Regional wall motion abnormalities cannot be excluded due to limited visualization. Right Ventricle The right ventricle is grossly normal size. There is normal right ventricular wall thickness. The right ventricular systolic function is normal. Atria The right atrium is normal in size. The left atrium is moderately dilated. Interarterial septum not well visualized and not well dopplered. Cannot comment on ASD/PFO presence. Mitral Valve There is mild to moderate mitral leaflet calcification. There is moderate mitral annular calcification. There is no mitral valve stenosis. There is a mild to moderate amount of mitral regurgitation. Aortic Valve The aortic valve is not well visualized secondary to technical limitations. The aortic valve is mildly calcified. There is mild to moderate aortic stenosis. There is a peak gradient of 25 mm of Hg. There is a trace amount of aortic regurgitation. Tricuspid Valve The tricuspid valve is not well visualized secondary to technical limitations. There is no tricuspid stenosis. There is a trace to mild amount of tricuspid regurgitation. There is mild pulmonary hypertension by echo. Right ventricular systolic pressure is estimated to be elevated at 40-50mmHg. Pulmonic Valve The pulmonic valve is not well visualized. Great Vessels The aortic root is not well visualized. The inferior vena cava was not well visualized. Effusions There is no pericardial effusion. : JORGE BOWSER > Eric Edward
[2017-09-29] MEDS ORDERED: ENOXAPARIN SODIUM INJ 30 MG/0.3 ML DISP.SYRIN SUBCUT ONE (14:00)
[2017-09-29] MEDS: VANCOMYCIN HCL 1,250 MG in DEXTROSE 5%-WATER 250 ML IV SCH (15:07)
[2017-09-29] MEDS: CEFTRIAXONE 1 GM/D5W RTU 1 GM/50 ML RTUPB IV SCH (22:29)
[2017-09-30] MEDS: LEVALBUTEROL HCL NEB 1.25 MG/3 ML AMPUL NEB SCH ×4 (01:57→19:54)
[2017-09-30 05:51] LABS: ALBUMIN 3.2 g/dL (3.5-5.0); ANION GAP 11 (5-19); BLOOD UREA NITROGEN 47 mg/dL (7-20); CALCIUM 9.3 mg/dL (8.4-10.2); CARBON DIOXIDE 31 mmol/L (22-30); CHLORIDE 103 mmol/L (98-107); CREATININE RESULT 1.95 mg/dL (0.52-1.25); GLUCOSE 166 mg/dL (75-110); PHOSPHORUS 3.1 mg/dL (2.5-4.5); POTASSIUM 4.1 mmol/L (3.6-5.0); SODIUM 144.6 mmol/L (137-145); TOTAL PROTEIN 6.5 g/dL (6.3-8.2)
[2017-09-30 05:52] LABS: ALANINE AMINOTRANSFERASE 40 U/L (9-52); ALKALINE PHOSPHATASE 42 U/L (38-126); ASPARTATE AMINO TRANSFERASE 26 U/L (14-36); BILIRUBIN,DIRECT 0.6 mg/dL (0.0-0.4); BILIRUBIN,TOTAL 0.7 mg/dL (0.2-1.3); MAGNESIUM 1.9 mg/dL (1.6-2.3)
[2017-09-30] MEDS: PREGABALIN 75 MG CAPSULE PO SCH ×3 (06:39→22:30)
[2017-09-30] MEDS: LEVOTHYROXINE SODIUM 0.088 MG TABLET PO SCH (06:39)
[2017-09-30] MEDS: BUDESONIDE NEB 0.5 MG/2 ML AMPUL NEB SCH ×2 (08:29→19:55)
--- NOTE | 2017-09-30 10:40 | PDOC PROGRESS REPORT ---
Subjective Progress Note for:: 09/30/17 Subjective:: The patient is a 67-year-old female who normally resides in a skilled facility. She was brought into the hospital for worsening mental status. She was found to have sepsis. The source of her sepsis appears to be group B beta Streptococcus in the blood and E. coli in the urine. Initially, the patient was treated with vancomycin and ertapenem. Yesterday, I switched her antibiotics to ceftriaxone. Temperature maximum overnight was 100.4. This morning, the patient states that her nausea and vomiting have resolved. She however is now incontinent of stool. Nursing staff report that the patient is having difficulty using CPAP or BiPAP. They have switched her to a nasal mask which has increased her comfort. Nursing staff report that she is more confused than her previous baseline. This morning, when I examined her she was asking questions appropriately and oriented 3. Physical Exam Vital Signs: Temp Pulse Resp BP Pulse Ox 100.4 F 80 18 143/52 H 94 09/30/17 03:54 09/30/17 03:54 09/30/17 04:29 09/30/17 03:54 09/30/17 03:54 Intake & Output 09/29/17 09/30/17 10/01/17 06:59 06:59 06:59 Intake Total 1375 1807 Output Total 1675 1755 Balance -300 52 Weight 136 kg 137.9 kg Additional comments: The patient is a super morbidly obese black female. She is awake. She knows that she is in the hospital and she knows that she has a current infection. She is not complaining of any respiratory difficulty or chest pain. Again, the vomiting has resolved. She has been having frequent bowel movements but does not complain of abdominal pain. Her facial appearance is unremarkable. Her lungs are diminished but clear. Her cardiac exam is distant but regular and I do not appreciate any murmurs, gallops or rubs. The abdomen is obese. The abdomen is nontender. Bowel sounds are present but diminished. She does not have guarding or rebound present. Lower extremities are warm to touch without any pitting edema. I do not detect any skin lesions or rashes. Results Laboratory Results: 09/29/17 06:38 09/30/17 05:03 09/30/17 05:03 Sodium 144.6 Potassium 4.1 Chloride 103 Carbon Dioxide 31 H Anion Gap 11 BUN 47 H Creatinine 1.95 H Est GFR ( Amer) 31 L Est GFR (Non-Af Amer) 26 L Glucose 166 H Calcium 9.3 Phosphorus 3.1 Magnesium 1.9 Total Bilirubin 0.7 AST 26 ALT 40 Alkaline Phosphatase 42 Total Protein 6.5 Albumin 3.2 L Impressions: Chest X-Ray 09/27/17 14:29 IMPRESSION: CARDIAC ENLARGEMENT. VASCULAR CONGESTION. Head CT 09/27/17 14:30 IMPRESSION: MILD CHRONIC CHANGES OF ATROPHY AND MICROVASCULAR ISCHEMIA. NO ACUTE PROCESS. EVIDENCE OF ACUTE STROKE: NO. Assessment & Plan - Diagnosis (1) CKD (chronic kidney disease) stage 4, GFR 15-29 ml/min Is this a current diagnosis for this admission?: Yes Plan: Stable on labs today. (2) Gram-positive cocci bacteremia Is this a current diagnosis for this admission?: Yes Plan: Continue ceftriaxone. (3) Sleep apnea Qualifiers: Sleep apnea type: unspecified type Qualified Code(s): G47.30 - Sleep apnea , unspecified Is this a current diagnosis for this admission?: Yes Plan: We will get a baseline gas this morning to determine if hypercapnia is causing her confusion. (4) UTI (urinary tract infection) Qualifiers: Urinary tract infection type: site unspecified Hematuria presence: without hematuria Qualified Code(s): N39.0 - Urinary tract infection, site not specified Plan: Continue ceftriaxone. (5) Morbid obesity with BMI of 45.0-49.9, adult Is this a current diagnosis for this admission?: Yes Plan: The patient's super morbid obesity makes her care more difficult. (6) Acute encephalopathy Is this a current diagnosis for this admission?: Yes Plan: Tangent due to sepsis. Patient is having mental status changes per staff. This could be hypercarbia. Will check ABG. (7) CHF (congestive heart failure) Qualifiers: Congestive heart failure type: diastolic Congestive heart failure chronicity: chronic Qualified Code(s): I50.32 - Chronic diastolic (congestive ) heart failure Is this a current diagnosis for this admission?: Yes Plan: Volume status is difficult to determine secondary to the patient's obesity. At this point I think she is euvolemic. Fluids were stopped yesterday. (8) COPD (chronic obstructive pulmonary disease) Qualifiers: COPD type: unspecified COPD Qualified Code(s): J44.9 - Chronic obstructive pulmonary disease, unspecified Is this a current diagnosis for this admission?: Yes Plan: Currently, we are holding on systemic corticosteroids. The patient is receiving Xopenex and Pulmicort. (9) DVT prophylaxis Is this a current diagnosis for this admission?: Yes Plan: Lovenox was started yesterday. (10) Debility Is this a current diagnosis for this admission?: Yes Plan: Begin physical therapy. 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 This is correa secondary to her advanced renal failure. (12) Hypernatremia Is this a current diagnosis for this admission?: Yes Plan: imProving. Will follow. (13) Nausea & vomiting Qualifiers: Vomiting type: unspecified Vomiting Intractability: intractable Qualified Code(s): R11.2 - Nausea with vomiting, unspecified Plan: Resolved. - Time Time Spent with patient: 25-34 minutes - Inpatient Certification Medical Necessity: Significant Comorbidiites Make Outpatient Treatment Too Risky , Need Close Monitoring Due to Risk of Patient Decompensation, Need for IV Antibiotics, Risk of Complication if Not Cared For in Hospital
[2017-09-30] MEDS: FAMOTIDINE INJ/PF 20 MG/2 ML SDV IV SCH ×2 (10:48→22:30)
[2017-09-30] MEDS: SERTRALINE HCL 50 MG TABLET PO SCH (10:48)
[2017-09-30] MEDS: CARVEDILOL 12.5 MG TABLET PO SCH ×2 (10:48→22:30)
[2017-09-30] MEDS: FUROSEMIDE 80 MG TABLET PO SCH ×2 (10:49→18:41)
[2017-09-30] MEDS: ENOXAPARIN SODIUM INJ 30 MG/0.3 ML DISP.SYRIN SUBCUT SCH (10:50)
[2017-09-30] MEDS: INSULIN LISPRO 100 UNIT/ML 3 ML VIAL SUBCUT SCH ×3 (10:58→18:43)
[2017-09-30 11:36] LABS: ARTERIAL BLOOD BASE EXCESS 9.5 mmol/L; ARTERIAL BLOOD O2 SATURATION 96.1 % (94-98)
[2017-09-30] MEDS: CEFTRIAXONE 1 GM/D5W RTU 1 GM/50 ML RTUPB IV SCH (22:30)
[2017-09-30] MEDS: ATORVASTATIN CALCIUM 20 MG TABLET PO SCH (22:30)
[2017-10-01] MEDS: LEVALBUTEROL HCL NEB 1.25 MG/3 ML AMPUL NEB SCH ×4 (02:20→20:37)
[2017-10-01] MEDS: PREGABALIN 75 MG CAPSULE PO SCH ×3 (06:26→22:26)
[2017-10-01] MEDS: LEVOTHYROXINE SODIUM 0.088 MG TABLET PO SCH (06:27)
[2017-10-01] MEDS: BUDESONIDE NEB 0.5 MG/2 ML AMPUL NEB SCH ×2 (08:05→20:34)
[2017-10-01] MEDS: SERTRALINE HCL 50 MG TABLET PO SCH (09:42)
[2017-10-01] MEDS: FUROSEMIDE 80 MG TABLET PO SCH ×2 (09:42→17:14)
[2017-10-01] MEDS: FAMOTIDINE INJ/PF 20 MG/2 ML SDV IV SCH ×2 (09:42→22:26)
[2017-10-01] MEDS: CARVEDILOL 12.5 MG TABLET PO SCH ×2 (09:43→22:26)
[2017-10-01] MEDS: ENOXAPARIN SODIUM INJ 30 MG/0.3 ML DISP.SYRIN SUBCUT SCH (09:44)
[2017-10-01] MEDS: INSULIN LISPRO 100 UNIT/ML 3 ML VIAL SUBCUT SCH ×3 (09:46→17:15)
--- NOTE | 2017-10-01 10:48 | PDOC PROGRESS REPORT ---
Subjective Progress Note for:: 10/01/17 Subjective:: The patient is a 67-year-old female who normally resides in a skilled facility. She was brought into the hospital for worsening mental status. She was found to have sepsis. The source of her sepsis appears to be group B beta Streptococcus in the blood and E. coli in the urine. Initially, the patient was treated with vancomycin and ertapenem. On 09/29/17, I switched her antibiotics to ceftriaxone as both organisms show susceptibility to ceftriaxone. Temperature maximum overnight on 09/30/17 was 100.4. She has not had any fevers in 24 hours. Yesterday, the patient had some confusion. We checked a stat ABG. The patient is retaining CO2 but she is compensated with bicarbonate. Today, her mental status appears back to her baseline. The patient was complaining of nausea with vomiting, but this has now been resolved for 2 days. She is now having loose stools, but no diarrhea. She is having issues with incontinence of both urine and stool. The patient was recently hospitalized for severe hypoglycemia. During her last admission in August she was treated for C. difficile colitis. He was also treated with ciprofloxacin for Klebsiella UTI. The patient is fairly debilitated at baseline since a previous stroke. Before her illness in August she was ambulating on a walker. Since her last admission she has not yet started walking again. Physical therapy was consulted 09/30/17. Physical Exam Vital Signs: Temp Pulse Resp BP Pulse Ox 97.6 F 67 16 150/63 H 97 10/01/17 07:35 10/01/17 08:12 10/01/17 08:12 10/01/17 07:35 10/01/17 08:12 Intake & Output 09/30/17 10/01/17 10/02/17 06:59 06:59 06:59 Intake Total 1807 905 Output Total 1755 1500 Balance 52 -595 Weight 137.9 kg 134.9 kg Additional comments: The patient was much more awake and cooperative today. She answers questions appropriately. She does not appear to have any cognitive issues at present. Her facial appearance is normal. Her lungs are diminished in the bases but clear. Her cardiac exam is regular. I do not appreciate any murmurs, gallops or rubs. The abdomen is obese but soft. It appears to be benign. The patient' s lower extremities are warm to touch. She has no pitting edema present. The patient does not have any acute skin lesions or rashes. She was getting a bath when I saw her this morning and I was able to examine her skin in entirety. Results Laboratory Results: 09/29/17 06:38 09/30/17 05:03 09/30/17 11:00 Carbonic Acid 1.92 H HCO3/H2CO3 Ratio 19:1 ABG pH 7.38 ABG pCO2 63.7 H ABG pO2 86.7 ABG HCO3 36.5 H ABG O2 Saturation 96.1 ABG Base Excess 9.5 FiO2 2L 09/29/17 11:31 Stool - Stool - Final Impressions: Chest X-Ray 09/27/17 14:29 IMPRESSION: CARDIAC ENLARGEMENT. VASCULAR CONGESTION. Head CT 09/27/17 14:30 IMPRESSION: MILD CHRONIC CHANGES OF ATROPHY AND MICROVASCULAR ISCHEMIA. NO ACUTE PROCESS. EVIDENCE OF ACUTE STROKE: NO. Assessment & Plan - Diagnosis (1) CKD (chronic kidney disease) stage 4, GFR 15-29 ml/min Is this a current diagnosis for this admission?: Yes Plan: Stable on labs 09/30/17. Will repeat labs in am. (2) Gram-positive cocci bacteremia Is this a current diagnosis for this admission?: Yes Plan: Continue ceftriaxone. (3) Sleep apnea Qualifiers: Sleep apnea type: unspecified type Qualified Code(s): G47.30 - Sleep apnea , unspecified Is this a current diagnosis for this admission?: Yes Plan: Continue BIPAP. (4) UTI (urinary tract infection) Qualifiers: Urinary tract infection type: site unspecified Hematuria presence: without hematuria Qualified Code(s): N39.0 - Urinary tract infection, site not specified Plan: Continue ceftriaxone. (5) Morbid obesity with BMI of 45.0-49.9, adult Is this a current diagnosis for this admission?: Yes Plan: The patient's super morbid obesity makes her care more difficult. (6) Acute encephalopathy Is this a current diagnosis for this admission?: Yes Plan: Resolved. (7) CHF (congestive heart failure) Qualifiers: Congestive heart failure type: diastolic Congestive heart failure chronicity: chronic Qualified Code(s): I50.32 - Chronic diastolic (congestive ) heart failure Is this a current diagnosis for this admission?: Yes Plan: Volume status is difficult to determine secondary to the patient's obesity. At this point I think she is euvolemic. Fluids were stopped 09/29/17. (8) COPD (chronic obstructive pulmonary disease) Qualifiers: COPD type: unspecified COPD Qualified Code(s): J44.9 - Chronic obstructive pulmonary disease, unspecified Is this a current diagnosis for this admission?: Yes Plan: Currently, we are holding on systemic corticosteroids. The patient is receiving Xopenex and Pulmicort. (9) DVT prophylaxis Is this a current diagnosis for this admission?: Yes Plan: Continue lovenox. (10) Debility Is this a current diagnosis for this admission?: Yes Plan: Begin physical therapy. (11) Diabetes mellitus, type II Qualifiers: Diabetes mellitus complication detail: with nephropathy Diabetes mellitus long-term insulin use: unspecified long-term insulin use status Is this a current diagnosis for this admission?: Yes Plan: Patient is currently on mealtime coverage and sliding scale. This is correa secondary to her advanced renal failure. (12) Hypernatremia Is this a current diagnosis for this admission?: Yes Plan: imProving. Will follow. (13) Nausea & vomiting Qualifiers: Vomiting type: unspecified Vomiting Intractability: intractable Qualified Code(s): R11.2 - Nausea with vomiting, unspecified Plan: Resolved. (15) Diarrhea Qualifiers: Diarrhea type: unspecified type Qualified Code(s): R19.7 - Diarrhea, unspecified Is this a current diagnosis for this admission?: Yes Plan: Patient has recently had C. difficile colitis. She is having diarrhea again. She is continuing to receive antibiotics on frequent basis. Certainly, she may not have cleared the C. difficile. I will recheck C. difficile assay. - Time Time Spent with patient: 25-34 minutes - Inpatient Certification Medical Necessity: Need Close Monitoring Due to Risk of Patient Decompensation, Need for IV Antibiotics, Risk of Complication if Not Cared For in Hospital, Risk of Diagnosis Which Will Require Inpatient Eval/Care/Monitoring
--- NOTE | 2017-10-01 10:54 | Progress Note ---
Provider Note Provider Note: Please note that C. difficile toxin testing was done on 09/29/2017. This was negative.This will not be repeated. Stool culture is outstanding at this time. I will initiate probiotic therapy.
[2017-10-01] MEDS: INSULIN LISPRO 100 UNIT/ML 3 ML VIAL SUBCUT PRN ×3 (12:40→22:25)
[2017-10-01] MEDS: LACTOBACILLUS ACIDOPHILUS 250 MG TAB PO SCH (17:14)
[2017-10-01] MEDS: CEFTRIAXONE 1 GM/D5W RTU 1 GM/50 ML RTUPB IV SCH (22:25)
[2017-10-01] MEDS: ATORVASTATIN CALCIUM 20 MG TABLET PO SCH (22:26)
[2017-10-02] MEDS: LEVALBUTEROL HCL NEB 1.25 MG/3 ML AMPUL NEB SCH ×4 (02:11→19:58)
[2017-10-02] MEDS: ACETAMINOPHEN 325 MG TABLET PO PRN (04:01)
[2017-10-02] MEDS: LEVOTHYROXINE SODIUM 0.088 MG TABLET PO SCH (05:33)
[2017-10-02] MEDS: PREGABALIN 75 MG CAPSULE PO SCH ×3 (05:33→22:38)
[2017-10-02] MEDS: BUDESONIDE NEB 0.5 MG/2 ML AMPUL NEB SCH ×2 (08:10→20:00)
[2017-10-02] MEDS: INSULIN LISPRO 100 UNIT/ML 3 ML VIAL SUBCUT PRN ×3 (08:19→17:57)
[2017-10-02] MEDS: INSULIN LISPRO 100 UNIT/ML 3 ML VIAL SUBCUT SCH ×3 (08:19→17:57)
[2017-10-02] MEDS ORDERED: LOPERAMIDE HCL 2 MG CAPSULE PO PRN (09:20)
[2017-10-02] MEDS: ENOXAPARIN SODIUM INJ 30 MG/0.3 ML DISP.SYRIN SUBCUT SCH (10:17)
[2017-10-02] MEDS: FUROSEMIDE 80 MG TABLET PO SCH ×2 (10:18→17:58)
[2017-10-02] MEDS: CARVEDILOL 12.5 MG TABLET PO SCH ×2 (10:18→22:38)
[2017-10-02] MEDS: LACTOBACILLUS ACIDOPHILUS 250 MG TAB PO SCH ×2 (10:18→17:58)
[2017-10-02] MEDS: SERTRALINE HCL 50 MG TABLET PO SCH (10:18)
[2017-10-02] MEDS: FAMOTIDINE INJ/PF 20 MG/2 ML SDV IV SCH ×2 (10:18→22:37)
[2017-10-02 17:23] LABS: APPEARANCE,URINE SLIGHTLY-CLOUDY; BILIRUBIN,URINE NEGATIVE (NEGATIVE); GLUCOSE, URINE 50 mg/dL (NEGATIVE); KETONES,URINE NEGATIVE (NEGATIVE); LEUKOCYTE ESTERASE,URINE LARGE (NEGATIVE); NITRITE,URINE NEGATIVE (NEGATIVE); PROTEIN,URINE NEGATIVE (NEGATIVE); URINE SPECIFIC GRAVITY 1.008; UROBILINOGEN,URINE NEGATIVE mg/dL (<2.0)
--- NOTE | 2017-10-02 18:41 | PDOC PROGRESS REPORT ---
Subjective Progress Note for:: 10/02/17 Subjective:: Patient is seen on rounds. She continues to complain about having diarrhea but c diff is negative. She has a history of recent c diff infection, last in August. The patient was recently hospitalized for severe hypoglycemia. During her last admission in August she was treated for C. difficile colitis. He was also treated with ciprofloxacin for Klebsiella UTI. The patient is fairly debilitated at baseline since a previous stroke. Before her illness in August she was ambulating on a walker. Since her last admission she has not yet started walking again. Physical therapy was consulted 09/30/17. Reason For Visit: METABOLIC ENCEPHALOPATHY, SEPSIS, UTI Physical Exam Vital Signs: Temp Pulse Resp BP Pulse Ox 98.3 F 62 20 137/52 H 96 10/02/17 15:47 10/02/17 15:47 10/02/17 15:47 10/02/17 15:47 10/02/17 15:47 Intake & Output 10/01/17 10/02/17 10/03/17 06:59 06:59 06:59 Intake Total 905 1540 489 Output Total 1500 3625 600 Balance -595 -2085 -111 Weight 134.9 kg 137.1 kg General appearance: PRESENT: no acute distress, morbidly obese, well-developed, well-nourished Head exam: PRESENT: atraumatic Eye exam: PRESENT: conjunctiva pink, EOMI, PERRLA. ABSENT: scleral icterus Ear exam: PRESENT: normal external ear exam Mouth exam: PRESENT: moist, tongue midline Neck exam: PRESENT: carotid bruit Respiratory exam: PRESENT: clear to auscultation emperatriz. ABSENT: rales, rhonchi, wheezes Cardiovascular exam: PRESENT: RRR. ABSENT: diastolic murmur, rubs, systolic murmur Pulses: PRESENT: normal dorsalis pedis pul Vascular exam: PRESENT: normal capillary refill GI/Abdominal exam: PRESENT: normal bowel sounds, soft. ABSENT: distended, guarding, mass, organolmegaly, rebound, tenderness Rectal exam: PRESENT: deferred Extremities exam: PRESENT: full ROM. ABSENT: calf tenderness, clubbing, pedal edema Neurological exam: PRESENT: alert, awake, oriented to person, oriented to place , oriented to time, oriented to situation, CN II-XII grossly intact. ABSENT: motor sensory deficit Psychiatric exam: PRESENT: appropriate affect, normal mood. ABSENT: homicidal ideation, suicidal ideation Skin exam: PRESENT: dry, intact, warm. ABSENT: cyanosis, rash Results Laboratory Results: 09/29/17 06:38 09/30/17 05:03 10/02/17 10/02/17 05:50 17:05 Urine Color YELLOW Urine Appearance SLIGHTLY-CLOUDY Urine pH 6.0 Ur Specific [place] 1.008 Urine Protein NEGATIVE Urine Glucose (UA) 50 H Urine Ketones NEGATIVE Urine Blood SMALL H Urine Nitrite NEGATIVE Ur Leukocyte Esterase LARGE H Urine WBC (Auto) 34 Urine RBC (Auto) 10 Stool Occult Blood NEGATIVE 09/29/17 11:31 Stool - Stool - Final 09/29/17 11:31 Stool - Stool Stool Culture - Final NO SALMONELLA, SHIGELLA, CAMPYLOBACTER, OR E.COLI 0157 RECOVERED. NEGATIVE FOR SHIGA TOXINS 1&2. Impressions: Chest X-Ray 09/27/17 14:29 IMPRESSION: CARDIAC ENLARGEMENT. VASCULAR CONGESTION. Head CT 09/27/17 14:30 IMPRESSION: MILD CHRONIC CHANGES OF ATROPHY AND MICROVASCULAR ISCHEMIA. NO ACUTE PROCESS. EVIDENCE OF ACUTE STROKE: NO. Assessment & Plan - Diagnosis (1) UTI (urinary tract infection) Qualifiers: Urinary tract infection type: site unspecified Hematuria presence: without hematuria Qualified Code(s): N39.0 - Urinary tract infection, site not specified Is this a current diagnosis for this admission?: Yes Plan: Continue IV ceftriazone for 2 more days. (2) CKD (chronic kidney disease) stage 4, GFR 15-29 ml/min Is this a current diagnosis for this admission?: Yes Plan: Improved to her baseline (3) Hypomagnesemia Is this a current diagnosis for this admission?: Yes (4) Sleep apnea Qualifiers: Sleep apnea type: unspecified type Qualified Code(s): G47.30 - Sleep apnea , unspecified Is this a current diagnosis for this admission?: Yes (5) Morbid obesity with BMI of 45.0-49.9, adult Is this a current diagnosis for this admission?: Yes Plan: Counseled (6) Acute kidney injury superimposed on chronic kidney disease Is this a current diagnosis for this admission?: Yes Plan: Improved to her baseline (7) CAD (coronary artery disease) Qualifiers: Coronary Disease-Associated Artery/Lesion type: [place] artery [place] vs. transplanted heart: unspecified whether [place] or transplanted heart Associated angina: without angina Qualified Code(s): I25.10 - Atherosclerotic heart disease of [place] coronary artery without angina pectoris - Time Time Spent with patient: 25-34 minutes Critical Time spent with patient: 15-24 minutes Medications reviewed and adjusted accordingly: Yes Anticipated discharge: SNF Within: within 48 hours
[2017-10-02] MEDS: CEFTRIAXONE 1 GM/D5W RTU 1 GM/50 ML RTUPB IV SCH (22:36)
[2017-10-02] MEDS: ATORVASTATIN CALCIUM 20 MG TABLET PO SCH (22:38)
[2017-10-03] MEDS: LEVALBUTEROL HCL NEB 1.25 MG/3 ML AMPUL NEB SCH ×4 (01:23→20:31)
[2017-10-03] MEDS: LEVOTHYROXINE SODIUM 0.088 MG TABLET PO SCH (05:48)
[2017-10-03] MEDS: PREGABALIN 75 MG CAPSULE PO SCH ×3 (05:48→21:23)
[2017-10-03] MEDS: INSULIN LISPRO 100 UNIT/ML 3 ML VIAL SUBCUT SCH ×3 (07:45→16:50)
[2017-10-03] MEDS: INSULIN LISPRO 100 UNIT/ML 3 ML VIAL SUBCUT PRN ×4 (07:45→21:59)
[2017-10-03] MEDS: BUDESONIDE NEB 0.5 MG/2 ML AMPUL NEB SCH ×2 (08:07→20:31)
[2017-10-03] MEDS: ACETAMINOPHEN 325 MG TABLET PO PRN (08:38)
[2017-10-03] MEDS: CARVEDILOL 12.5 MG TABLET PO SCH ×2 (09:19→21:23)
[2017-10-03] MEDS: FUROSEMIDE 80 MG TABLET PO SCH ×2 (09:19→17:39)
[2017-10-03] MEDS: ENOXAPARIN SODIUM INJ 30 MG/0.3 ML DISP.SYRIN SUBCUT SCH (09:19)
[2017-10-03] MEDS: LACTOBACILLUS ACIDOPHILUS 250 MG TAB PO SCH ×2 (09:20→17:39)
[2017-10-03] MEDS: SERTRALINE HCL 50 MG TABLET PO SCH (09:20)
[2017-10-03] MEDS: FAMOTIDINE INJ/PF 20 MG/2 ML SDV IV SCH ×2 (09:21→21:23)
--- NOTE | 2017-10-03 14:07 | PDOC PROGRESS REPORT ---
Subjective Progress Note for:: 10/03/17 Subjective:: Patient is a 59-year-old female from [facility] presenting with metabolic encephalopathy due to sepsis. Patient with bacteremia and UTI now on ceftriaxone. Patient was having multiple bowel movement which appear to be improving. This is most likely due to the antibiotic. Patient doing well otherwise. Reason For Visit: METABOLIC ENCEPHALOPATHY, SEPSIS, UTI Physical Exam Vital Signs: Temp Pulse Resp BP Pulse Ox 98.2 F 68 20 155/56 H 96 10/03/17 11:39 10/03/17 11:39 10/03/17 11:39 10/03/17 11:39 10/03/17 11:39 Intake & Output 10/02/17 10/03/17 10/04/17 06:59 06:59 06:59 Intake Total 1540 963 474 Output Total 3625 2425 500 Balance -2084 -1461 - Weight 137.1 kg 134.7 kg General appearance: PRESENT: no acute distress, morbidly obese Head exam: PRESENT: normocephalic Eye exam: PRESENT: EOMI. ABSENT: scleral icterus Ear exam: PRESENT: normal external ear exam Mouth exam: PRESENT: moist Neck exam: ABSENT: carotid bruit, JVD, lymphadenopathy, thyromegaly Respiratory exam: PRESENT: clear to auscultation emperatriz. ABSENT: rales, rhonchi, wheezes Cardiovascular exam: PRESENT: RRR. ABSENT: diastolic murmur, rubs, systolic murmur Pulses: PRESENT: normal dorsalis pedis pul Vascular exam: PRESENT: normal capillary refill GI/Abdominal exam: PRESENT: normal bowel sounds, soft. ABSENT: distended, guarding, mass, organolmegaly, rebound, tenderness Rectal exam: PRESENT: deferred Extremities exam: PRESENT: full ROM. ABSENT: calf tenderness, clubbing, pedal edema Neurological exam: PRESENT: other - sleeping but arousable.. ABSENT: motor sensory deficit Psychiatric exam: PRESENT: appropriate affect, normal mood. ABSENT: homicidal ideation, suicidal ideation Skin exam: PRESENT: dry, intact, warm. ABSENT: cyanosis, rash Results Laboratory Results: 09/29/17 06:38 09/30/17 05:03 10/02/17 17:05 Urine Color YELLOW Urine Appearance SLIGHTLY-CLOUDY Urine pH 6.0 Ur Specific [place] 1.008 Urine Protein NEGATIVE Urine Glucose (UA) 50 H Urine Ketones NEGATIVE Urine Blood SMALL H Urine Nitrite NEGATIVE Ur Leukocyte Esterase LARGE H Urine WBC (Auto) 34 Urine RBC (Auto) 10 Impressions: Chest X-Ray 09/27/17 14:29 IMPRESSION: CARDIAC ENLARGEMENT. VASCULAR CONGESTION. Head CT 09/27/17 14:30 IMPRESSION: MILD CHRONIC CHANGES OF ATROPHY AND MICROVASCULAR ISCHEMIA. NO ACUTE PROCESS. EVIDENCE OF ACUTE STROKE: NO. Assessment & Plan - Diagnosis (1) Gram-positive cocci bacteremia Is this a current diagnosis for this admission?: Yes (2) Sepsis Qualifiers: Sepsis type: Streptococcus, unspecified Qualified Code(s): A40.9 - Streptococcal sepsis, unspecified; A40 - Streptococcal sepsis Is this a current diagnosis for this admission?: Yes Plan: G B streptoccocus bacteremia. Patient currently on ceftriaxone. Blood cultures clear. Continue treatment for at least 10 days from negative culture. Oct 08 will be stop date. (3) CKD (chronic kidney disease) stage 4, GFR 15-29 ml/min Is this a current diagnosis for this admission?: Yes Plan: She has a CKD stage IV. Patient had a small bump in her creatinine. Improved with hydration. Last creatinine was 1.95 down from 2.21. (4) UTI (urinary tract infection) Qualifiers: Urinary tract infection type: site unspecified Hematuria presence: without hematuria Qualified Code(s): N39.0 - Urinary tract infection, site not specified Is this a current diagnosis for this admission?: Yes Plan: Ecoli UTI now on ceftriaxone. (5) Morbid obesity with BMI of 45.0-49.9, adult Is this a current diagnosis for this admission?: Yes Plan: Patient will be counseled on portion control. (6) Acute encephalopathy Is this a current diagnosis for this admission?: Yes Plan: Appears to have a metabolic encephalopathy most likely due sepsis. Resolved. (7) CHF (congestive heart failure) Qualifiers: Congestive heart failure type: diastolic Congestive heart failure chronicity: chronic Qualified Code(s): I50.32 - Chronic diastolic (congestive ) heart failure Is this a current diagnosis for this admission?: Yes Plan: EF preserved however patient has grade 2 diastolic dysfunction. Patient euvolemic. Continue lasix. 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 Continue SSI and lispro 15 units with meals. Will add levemir 10 Units bid. (9) Hypernatremia Is this a current diagnosis for this admission?: Yes Plan: Resolved. (10) COPD (chronic obstructive pulmonary disease) Qualifiers: COPD type: unspecified COPD Qualified Code(s): J44.9 - Chronic obstructive pulmonary disease, unspecified Is this a current diagnosis for this admission?: Yes Plan: Improving. Continued on Xopenex and Pulmicort. (11) Sleep apnea Qualifiers: Sleep apnea type: unspecified type Qualified Code(s): G47.30 - Sleep apnea , unspecified Is this a current diagnosis for this admission?: Yes Plan: Patient does have history of sleep apnea [facility]. She is currently on BiPAP here. Continue with Bipap. (12) Hypomagnesemia Is this a current diagnosis for this admission?: Yes Plan: Resolved. - Time Time Spent with patient: Less than 15 minutes Anticipated discharge: SNF - Inpatient Certification Medical Necessity: Need for IV Antibiotics
[2017-10-03] MEDS: CEFTRIAXONE 1 GM/D5W RTU 1 GM/50 ML RTUPB IV SCH (21:22)
[2017-10-03] MEDS: ATORVASTATIN CALCIUM 20 MG TABLET PO SCH (21:23)
[2017-10-03] MEDS: INSULIN DETEMIR 100 UNIT/ML 3 ML PEN SUBCUT SCH (21:57)
[2017-10-04] MEDS: LEVALBUTEROL HCL NEB 1.25 MG/3 ML AMPUL NEB SCH ×4 (01:49→20:26)
[2017-10-04] MEDS: PREGABALIN 75 MG CAPSULE PO SCH ×3 (05:30→21:10)
[2017-10-04] MEDS: LEVOTHYROXINE SODIUM 0.088 MG TABLET PO SCH (05:30)
[2017-10-04 06:07] LABS: HEMATOCRIT 31.4 % (36.0-47.0); HEMOGLOBIN 10.6 g/dL (12.0-15.5); HGB HCT DIFFERENCE 0.4; MEAN CORPUSCULAR HEMOGLOBIN 31.1 pg (27.0-33.4); MEAN CORPUSCULAR HGB CONC 33.7 g/dL (32.0-36.0); MEAN CORPUSCULAR VOLUME 92 fl (80-97); RED BLOOD COUNT 3.41 10^6/uL (3.72-5.28); RED CELL DISTRIBUTION WIDTH 13.3 % (11.5-14.0); WHITE BLOOD COUNT 10.2 10^3/uL (4.0-10.5)
[2017-10-04] MEDS: BUDESONIDE NEB 0.5 MG/2 ML AMPUL NEB SCH ×2 (08:10→20:26)
[2017-10-04] MEDS: INSULIN LISPRO 100 UNIT/ML 3 ML VIAL SUBCUT SCH ×3 (08:51→18:18)
[2017-10-04] MEDS: INSULIN LISPRO 100 UNIT/ML 3 ML VIAL SUBCUT PRN ×4 (08:51→21:37)
[2017-10-04] MEDS: INSULIN DETEMIR 100 UNIT/ML 3 ML PEN SUBCUT SCH ×2 (10:25→21:34)
[2017-10-04] MEDS: FAMOTIDINE INJ/PF 20 MG/2 ML SDV IV SCH ×2 (10:25→21:10)
[2017-10-04] MEDS: ENOXAPARIN SODIUM INJ 30 MG/0.3 ML DISP.SYRIN SUBCUT SCH (10:25)
[2017-10-04] MEDS: CARVEDILOL 12.5 MG TABLET PO SCH ×2 (10:26→21:10)
[2017-10-04] MEDS: FUROSEMIDE 80 MG TABLET PO SCH ×2 (10:26→18:18)
[2017-10-04] MEDS: LACTOBACILLUS ACIDOPHILUS 250 MG TAB PO SCH ×2 (10:26→18:18)
[2017-10-04] MEDS: SERTRALINE HCL 50 MG TABLET PO SCH (10:26)
[2017-10-04 12:32] LABS: APPEARANCE,URINE CLEAR; BILIRUBIN,URINE NEGATIVE (NEGATIVE); GLUCOSE, URINE 50 mg/dL (NEGATIVE); KETONES,URINE NEGATIVE (NEGATIVE); LEUKOCYTE ESTERASE,URINE SMALL (NEGATIVE); NITRITE,URINE NEGATIVE (NEGATIVE); PROTEIN,URINE NEGATIVE (NEGATIVE); UROBILINOGEN,URINE NEGATIVE mg/dL (<2.0)
--- NOTE | 2017-10-04 15:52 | PDOC PROGRESS REPORT ---
Subjective Progress Note for:: 10/04/17 Subjective:: Patient is a 59-year-old female from [facility] presenting with metabolic encephalopathy due to sepsis. Patient with bacteremia and UTI now on ceftriaxone. Patient diarrhea has improved. Patient is more awake and interactive. Patient states that her appetite is not so good. Reason For Visit: METABOLIC ENCEPHALOPATHY, SEPSIS, UTI Physical Exam Vital Signs: Temp Pulse Resp BP Pulse Ox 98.2 F 70 16 152/63 H 98 10/04/17 11:49 10/04/17 14:01 10/04/17 14:01 10/04/17 11:49 10/04/17 14:01 Intake & Output 10/03/17 10/04/17 10/05/17 06:59 06:59 06:59 Intake Total 963 1225 696 Output Total 2425 2900 300 Balance -1462 -1675 396 Weight 134.7 kg 136.5 kg General appearance: PRESENT: no acute distress, morbidly obese Head exam: PRESENT: normocephalic Eye exam: PRESENT: EOMI. ABSENT: scleral icterus Mouth exam: PRESENT: tongue midline Neck exam: ABSENT: carotid bruit, JVD, lymphadenopathy, thyromegaly Respiratory exam: PRESENT: clear to auscultation emperatriz. ABSENT: rales, rhonchi, wheezes Cardiovascular exam: PRESENT: RRR. ABSENT: diastolic murmur, rubs, systolic murmur Pulses: PRESENT: normal dorsalis pedis pul Vascular exam: PRESENT: normal capillary refill GI/Abdominal exam: PRESENT: normal bowel sounds, soft - protuberant. ABSENT: distended, guarding, mass, organolmegaly, rebound, tenderness Rectal exam: PRESENT: deferred Extremities exam: PRESENT: full ROM. ABSENT: calf tenderness, clubbing, pedal edema Neurological exam: PRESENT: alert, awake, oriented to person, oriented to place , oriented to time, oriented to situation, CN II-XII grossly intact. ABSENT: motor sensory deficit Psychiatric exam: PRESENT: appropriate affect, normal mood. ABSENT: homicidal ideation, suicidal ideation Skin exam: PRESENT: dry, intact, warm. ABSENT: cyanosis, rash Results Laboratory Results: 10/04/17 05:57 09/30/17 05:03 10/04/17 10/04/17 05:57 11:45 WBC 10.2 RBC 3.41 L Hgb 10.6 L Hct 31.4 L MCV 92 MCH 31.1 MCHC 33.7 RDW 13.3 Plt Count 230 Urine Color YELLOW Urine Appearance CLEAR Urine pH 6.0 Ur Specific [place] 1.010 Urine Protein NEGATIVE Urine Glucose (UA) 50 H Urine Ketones NEGATIVE Urine Blood SMALL H Urine Nitrite NEGATIVE Ur Leukocyte Esterase SMALL H Urine WBC (Auto) 9 Urine RBC (Auto) 5 09/29/17 07:40 Blood Blood Culture - Final NO GROWTH IN 5 DAYS 09/29/17 06:38 Blood Blood Culture - Final NO GROWTH IN 5 DAYS Impressions: Chest X-Ray 09/27/17 14:29 IMPRESSION: CARDIAC ENLARGEMENT. VASCULAR CONGESTION. Head CT 09/27/17 14:30 IMPRESSION: MILD CHRONIC CHANGES OF ATROPHY AND MICROVASCULAR ISCHEMIA. NO ACUTE PROCESS. EVIDENCE OF ACUTE STROKE: NO. Assessment & Plan - Diagnosis (1) Gram-positive cocci bacteremia Is this a current diagnosis for this admission?: Yes Plan: Group B strep bacteremia. Patient currently on ceftriaxone. Patient to complete 7-10 days of antibiotics. (2) Sepsis Qualifiers: Sepsis type: Streptococcus, unspecified Qualified Code(s): A40.9 - Streptococcal sepsis, unspecified; A40 - Streptococcal sepsis Is this a current diagnosis for this admission?: Yes Plan: G B streptoccocus bacteremia. Patient currently on ceftriaxone. Blood cultures clear. Continue treatment for at least 7-10 days from negative culture. Oct 06-3 will be stop date. (3) CKD (chronic kidney disease) stage 4, GFR 15-29 ml/min Is this a current diagnosis for this admission?: Yes Plan: Acute on chronic kidney disease stage IV. Patient had a small bump in her creatinine. Improved with hydration. Last creatinine was 1.95 down from 2.21. (4) UTI (urinary tract infection) Qualifiers: Urinary tract infection type: site unspecified Hematuria presence: without hematuria Qualified Code(s): N39.0 - Urinary tract infection, site not specified Is this a current diagnosis for this admission?: Yes Plan: Ecoli UTI now on ceftriaxone. (5) Morbid obesity with BMI of 45.0-49.9, adult Is this a current diagnosis for this admission?: Yes Plan: Patient will be counseled on portion control. (6) Acute encephalopathy Is this a current diagnosis for this admission?: Yes Plan: Appears to have a metabolic encephalopathy most likely due sepsis (UTI and bacteremia). Resolved. (7) CHF (congestive heart failure) Qualifiers: Congestive heart failure type: diastolic Congestive heart failure chronicity: chronic Qualified Code(s): I50.32 - Chronic diastolic (congestive ) heart failure Is this a current diagnosis for this admission?: Yes Plan: EF preserved however patient has grade 2 diastolic dysfunction. Patient euvolemic. Continue lasix. 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 Could be due in part to her infection. Will increased levemir to 15 units bid. Continue SSI and lispro 15 units with meals. (9) Hypernatremia Is this a current diagnosis for this admission?: Yes Plan: Resolved. (10) COPD (chronic obstructive pulmonary disease) Qualifiers: COPD type: unspecified COPD Qualified Code(s): J44.9 - Chronic obstructive pulmonary disease, unspecified Is this a current diagnosis for this admission?: Yes Plan: Improving. Continued on Xopenex and Pulmicort. (11) Sleep apnea Qualifiers: Sleep apnea type: unspecified type Qualified Code(s): G47.30 - Sleep apnea , unspecified Is this a current diagnosis for this admission?: Yes Plan: Continue to use patient's CPAP machine. (12) Hypomagnesemia Is this a current diagnosis for this admission?: Yes Plan: Resolved. - Time Time Spent with patient: Less than 15 minutes Anticipated discharge: SNF - Inpatient Certification Medical Necessity: Need for IV Antibiotics
[2017-10-04] MEDS: CEFTRIAXONE 1 GM/D5W RTU 1 GM/50 ML RTUPB IV SCH (21:09)
[2017-10-04] MEDS: ATORVASTATIN CALCIUM 20 MG TABLET PO SCH (21:11)
[2017-10-05] MEDS: LEVALBUTEROL HCL NEB 1.25 MG/3 ML AMPUL NEB SCH ×4 (02:07→20:05)
[2017-10-05] MEDS: PREGABALIN 75 MG CAPSULE PO SCH ×3 (05:30→21:07)
[2017-10-05] MEDS: LEVOTHYROXINE SODIUM 0.088 MG TABLET PO SCH (05:30)
[2017-10-05] MEDS: BUDESONIDE NEB 0.5 MG/2 ML AMPUL NEB SCH ×2 (08:11→20:05)
[2017-10-05] MEDS: INSULIN LISPRO 100 UNIT/ML 3 ML VIAL SUBCUT PRN ×4 (08:18→21:39)
[2017-10-05] MEDS: INSULIN LISPRO 100 UNIT/ML 3 ML VIAL SUBCUT SCH ×3 (08:18→18:02)
[2017-10-05] MEDS: ENOXAPARIN SODIUM INJ 30 MG/0.3 ML DISP.SYRIN SUBCUT SCH (09:20)
[2017-10-05] MEDS: FUROSEMIDE 80 MG TABLET PO SCH ×2 (09:21→18:04)
[2017-10-05] MEDS: FAMOTIDINE INJ/PF 20 MG/2 ML SDV IV SCH ×2 (09:21→21:07)
[2017-10-05] MEDS: SERTRALINE HCL 50 MG TABLET PO SCH (09:21)
[2017-10-05] MEDS: LACTOBACILLUS ACIDOPHILUS 250 MG TAB PO SCH ×2 (09:22→18:04)
[2017-10-05] MEDS: CARVEDILOL 12.5 MG TABLET PO SCH ×2 (09:22→21:08)
[2017-10-05] MEDS: INSULIN DETEMIR 100 UNIT/ML 3 ML PEN SUBCUT SCH ×2 (09:29→21:36)
--- NOTE | 2017-10-05 19:39 | PDOC PROGRESS REPORT ---
Subjective Progress Note for:: 10/05/17 Subjective:: Patient is a 59-year-old female from [facility] presenting with metabolic encephalopathy due to sepsis. Patient with bacteremia and UTI now on ceftriaxone. Patient concerned that she has not moved her bowels but she is afraid that is she takes something that she will have diarrhea. Reason For Visit: METABOLIC ENCEPHALOPATHY, SEPSIS, UTI Physical Exam Vital Signs: Temp Pulse Resp BP Pulse Ox 98.5 F 68 16 162/59 H 90 L 10/05/17 15:25 10/05/17 15:25 10/05/17 15:25 10/05/17 15:25 10/05/17 15:25 Intake & Output 10/04/17 10/05/17 10/06/17 06:59 06:59 06:59 Intake Total 1225 2697 237 Output Total 2900 1300 400 Balance -1675 1397 -163 Weight 136.5 kg 137.4 kg General appearance: PRESENT: no acute distress, obese Head exam: PRESENT: normocephalic Eye exam: PRESENT: EOMI. ABSENT: scleral icterus Ear exam: PRESENT: normal external ear exam Mouth exam: PRESENT: moist Neck exam: ABSENT: carotid bruit, JVD, lymphadenopathy, thyromegaly Respiratory exam: PRESENT: clear to auscultation emperatriz. ABSENT: rales, rhonchi, wheezes Cardiovascular exam: PRESENT: RRR. ABSENT: diastolic murmur, rubs, systolic murmur GI/Abdominal exam: PRESENT: normal bowel sounds, soft. ABSENT: distended, guarding, mass, organolmegaly, rebound, tenderness Rectal exam: PRESENT: deferred Extremities exam: PRESENT: full ROM. ABSENT: calf tenderness, clubbing, pedal edema Neurological exam: PRESENT: alert, awake, oriented to person, oriented to place , oriented to time, oriented to situation, CN II-XII grossly intact. ABSENT: motor sensory deficit Psychiatric exam: PRESENT: appropriate affect, normal mood. ABSENT: homicidal ideation, suicidal ideation Skin exam: PRESENT: dry, intact, warm. ABSENT: cyanosis, rash Results Laboratory Results: 10/04/17 05:57 09/30/17 05:03 Impressions: Chest X-Ray 09/27/17 14:29 IMPRESSION: CARDIAC ENLARGEMENT. VASCULAR CONGESTION. Head CT 09/27/17 14:30 IMPRESSION: MILD CHRONIC CHANGES OF ATROPHY AND MICROVASCULAR ISCHEMIA. NO ACUTE PROCESS. EVIDENCE OF ACUTE STROKE: NO. Assessment & Plan - Diagnosis (1) Gram-positive cocci bacteremia Is this a current diagnosis for this admission?: Yes Plan: Group B strep bacteremia. Continue ceftriaxone. Continue for 7-10 days of antibiotics. (2) Sepsis Qualifiers: Sepsis type: Streptococcus, unspecified Qualified Code(s): A40.9 - Streptococcal sepsis, unspecified; A40 - Streptococcal sepsis Is this a current diagnosis for this admission?: Yes Plan: G B streptoccocus bacteremia. Patient currently on ceftriaxone. Blood cultures clear 09/29. Continue treatment for at least 7-10 days from negative culture. Oct 06- will be stop date. (3) CKD (chronic kidney disease) stage 4, GFR 15-29 ml/min Is this a current diagnosis for this admission?: Yes Plan: Acute on chronic kidney disease stage IV. Patient had a small bump in her creatinine. Improved with hydration. Last creatinine was 1.95 down from 2.21. (4) UTI (urinary tract infection) Qualifiers: Urinary tract infection type: site unspecified Hematuria presence: without hematuria Qualified Code(s): N39.0 - Urinary tract infection, site not specified Is this a current diagnosis for this admission?: Yes Plan: Ecoli UTI. Continue ceftriaxone. (5) Morbid obesity with BMI of 45.0-49.9, adult Is this a current diagnosis for this admission?: Yes Plan: Patient will be counseled on portion control. (6) Acute encephalopathy Is this a current diagnosis for this admission?: Yes Plan: Appears to have a metabolic encephalopathy most likely due sepsis (UTI and bacteremia). Resolved. (7) CHF (congestive heart failure) Qualifiers: Congestive heart failure type: diastolic Congestive heart failure chronicity: chronic Qualified Code(s): I50.32 - Chronic diastolic (congestive ) heart failure Is this a current diagnosis for this admission?: Yes Plan: EF preserved however patient has grade 2 diastolic dysfunction. Patient euvolemic. Continue lasix. (8) Diabetes mellitus, type II Qualifiers: Diabetes mellitus complication detail: with nephropathy Diabetes mellitus mcc insulin use: unspecified mcc insulin use status Is this a current diagnosis for this admission?: Yes Plan: Still not well controlled. Could be due in part to her infection. Levemir increased to 20 units bid. Continue SSI and lispro 15 units with meals. (9) Hypernatremia Is this a current diagnosis for this admission?: Yes Plan: Resolved. (10) COPD (chronic obstructive pulmonary disease) Qualifiers: COPD type: unspecified COPD Qualified Code(s): J44.9 - Chronic obstructive pulmonary disease, unspecified Is this a current diagnosis for this admission?: Yes Plan: Improving. Continued on Xopenex and Pulmicort. (11) Sleep apnea Qualifiers: Sleep apnea type: unspecified type Qualified Code(s): G47.30 - Sleep apnea , unspecified Is this a current diagnosis for this admission?: Yes Plan: Continue to use patient's CPAP machine. (12) Hypomagnesemia Is this a current diagnosis for this admission?: Yes Plan: Resolved. - Time Time Spent with patient: Less than 15 minutes Anticipated discharge: SNF - Inpatient Certification Medical Necessity: Need For IV Fluids
[2017-10-05] MEDS: ACETAMINOPHEN 325 MG TABLET PO PRN (19:48)
[2017-10-05] MEDS: CEFTRIAXONE 1 GM/D5W RTU 1 GM/50 ML RTUPB IV SCH (21:07)
[2017-10-05] MEDS: ATORVASTATIN CALCIUM 20 MG TABLET PO SCH (21:08)
[2017-10-06] MEDS: LEVALBUTEROL HCL NEB 1.25 MG/3 ML AMPUL NEB SCH ×4 (01:49→20:11)
[2017-10-06] MEDS: PREGABALIN 75 MG CAPSULE PO SCH ×3 (05:04→23:06)
[2017-10-06] MEDS: LEVOTHYROXINE SODIUM 0.088 MG TABLET PO SCH (05:04)
[2017-10-06 07:37] LABS: HEMATOCRIT 32.9 % (36.0-47.0); HEMOGLOBIN 10.9 g/dL (12.0-15.5); HGB HCT DIFFERENCE -0.2; MEAN CORPUSCULAR HGB CONC 33.2 g/dL (32.0-36.0); MEAN CORPUSCULAR VOLUME 93 fl (80-97); RED BLOOD COUNT 3.53 10^6/uL (3.72-5.28); RED CELL DISTRIBUTION WIDTH 13.5 % (11.5-14.0); WHITE BLOOD COUNT 9.9 10^3/uL (4.0-10.5)
[2017-10-06] MEDS: BUDESONIDE NEB 0.5 MG/2 ML AMPUL NEB SCH ×2 (07:38→20:11)
[2017-10-06] MEDS: INSULIN LISPRO 100 UNIT/ML 3 ML VIAL SUBCUT PRN ×4 (08:09→23:06)
[2017-10-06] MEDS: INSULIN LISPRO 100 UNIT/ML 3 ML VIAL SUBCUT SCH ×3 (08:09→18:47)
[2017-10-06] MEDS ORDERED: BISACODYL 5 MG TABEC PO ONE (08:49)
[2017-10-06] MEDS ORDERED: NORMAL SALINE 500 ML IV PRN (08:55)
--- NOTE | 2017-10-06 11:15 | PDOC PROGRESS REPORT ---
Subjective Progress Note for:: 10/06/17 Subjective:: Patient is a 59-year-old female from [facility] presenting with metabolic encephalopathy due to sepsis. Patient with bacteremia and UTI now on ceftriaxone. Patient states she is constipated and would like something orally to take. She is nauseated and has some abdominal discomfort. Reason For Visit: METABOLIC ENCEPHALOPATHY, SEPSIS, UTI Physical Exam Vital Signs: Temp Pulse Resp BP Pulse Ox 98.0 F 53 L 14 146/70 H 100 10/06/17 07:51 10/06/17 07:51 10/06/17 07:51 10/06/17 07:51 10/06/17 07:51 Intake & Output 10/05/17 10/06/17 10/07/17 06:59 06:59 06:59 Intake Total 2697 1117 Output Total 1300 1900 Balance 1397 -783 Weight 137.4 kg 136.9 kg General appearance: PRESENT: no acute distress, morbidly obese Head exam: PRESENT: normocephalic Eye exam: PRESENT: EOMI. ABSENT: scleral icterus Ear exam: PRESENT: normal external ear exam Mouth exam: PRESENT: moist Neck exam: ABSENT: carotid bruit, JVD, lymphadenopathy, thyromegaly Respiratory exam: PRESENT: clear to auscultation emperatriz. ABSENT: rales, rhonchi, wheezes Cardiovascular exam: PRESENT: RRR. ABSENT: diastolic murmur, rubs, systolic murmur Pulses: PRESENT: normal dorsalis pedis pul Vascular exam: PRESENT: normal capillary refill GI/Abdominal exam: PRESENT: normal bowel sounds, soft. ABSENT: distended, guarding, mass, organolmegaly, rebound, tenderness Rectal exam: PRESENT: deferred Extremities exam: PRESENT: full ROM. ABSENT: calf tenderness, clubbing, pedal edema Neurological exam: PRESENT: alert, awake, oriented to person, oriented to place , oriented to time, oriented to situation, CN II-XII grossly intact. ABSENT: motor sensory deficit Psychiatric exam: PRESENT: appropriate affect, normal mood. ABSENT: homicidal ideation, suicidal ideation Skin exam: PRESENT: dry, intact, warm. ABSENT: cyanosis, rash Results Laboratory Results: 10/06/17 07:10 09/30/17 05:03 10/06/17 10/06/17 07:10 09:30 WBC 9.9 RBC 3.53 L Hgb 10.9 L Hct 32.9 L MCV 93 MCH 31.0 MCHC 33.2 RDW 13.5 Plt Count 261 Stool Occult Blood NEGATIVE Impressions: Chest X-Ray 09/27/17 14:29 IMPRESSION: CARDIAC ENLARGEMENT. VASCULAR CONGESTION. Head CT 09/27/17 14:30 IMPRESSION: MILD CHRONIC CHANGES OF ATROPHY AND MICROVASCULAR ISCHEMIA. NO ACUTE PROCESS. EVIDENCE OF ACUTE STROKE: NO. Assessment & Plan - Diagnosis (1) Gram-positive cocci bacteremia Is this a current diagnosis for this admission?: Yes Plan: Group B strep bacteremia. Continue ceftriaxone. Continue for 7-10 days of antibiotics. (2) Sepsis Qualifiers: Sepsis type: Streptococcus, unspecified Qualified Code(s): A40.9 - Streptococcal sepsis, unspecified; A40 - Streptococcal sepsis Is this a current diagnosis for this admission?: Yes Plan: G B streptoccocus bacteremia. Patient currently on ceftriaxone. Blood cultures clear 09/29. Continue treatment for at least 7-10 days from negative culture. Oct 06- will be stop date. (3) CKD (chronic kidney disease) stage 4, GFR 15-29 ml/min Is this a current diagnosis for this admission?: Yes Plan: Acute on chronic kidney disease stage IV. Patient had a small bump in her creatinine. Improved with hydration now stable. (4) UTI (urinary tract infection) Qualifiers: Urinary tract infection type: site unspecified Hematuria presence: without hematuria Qualified Code(s): N39.0 - Urinary tract infection, site not specified Is this a current diagnosis for this admission?: Yes Plan: Ecoli UTI. Continue ceftriaxone. (5) Morbid obesity with BMI of 45.0-49.9, adult Is this a current diagnosis for this admission?: Yes Plan: Patient will be counseled on portion control. (6) Acute encephalopathy Is this a current diagnosis for this admission?: Yes Plan: Appears to have a metabolic encephalopathy most likely due sepsis (UTI and bacteremia). Resolved. (7) CHF (congestive heart failure) Qualifiers: Congestive heart failure type: diastolic Congestive heart failure chronicity: chronic Qualified Code(s): I50.32 - Chronic diastolic (congestive ) heart failure Is this a current diagnosis for this admission?: Yes Plan: EF preserved however patient has grade 2 diastolic dysfunction. Patient euvolemic. Continue lasix. 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 Could be due in part to her infection. Continue levemir 20 units bid. Continue SSI and lispro 15 units with meals. (9) Hypernatremia Is this a current diagnosis for this admission?: Yes Plan: Resolved. (10) COPD (chronic obstructive pulmonary disease) Qualifiers: COPD type: unspecified COPD Qualified Code(s): J44.9 - Chronic obstructive pulmonary disease, unspecified Is this a current diagnosis for this admission?: Yes Plan: Improving. Continued on Xopenex and Pulmicort. (11) Sleep apnea Qualifiers: Sleep apnea type: unspecified type Qualified Code(s): G47.30 - Sleep apnea , unspecified Is this a current diagnosis for this admission?: Yes Plan: Continue to use patient's CPAP machine. (12) Hypomagnesemia Is this a current diagnosis for this admission?: Yes Plan: Resolved. (13) Constipation Is this a current diagnosis for this admission?: Yes Plan: Patient had diarrhea ealier during the admission and was given and anti dirrheal. She is now constipated. Patient given sorbitol, bolus and biscodyl. - Time Time Spent with patient: Less than 15 minutes Anticipated discharge: SNF Within: within 24 hours - Inpatient Certification Medical Necessity: Need for IV Antibiotics
[2017-10-06] MEDS: FAMOTIDINE INJ/PF 20 MG/2 ML SDV IV SCH ×2 (11:16→23:08)
[2017-10-06] MEDS: LACTOBACILLUS ACIDOPHILUS 250 MG TAB PO SCH ×2 (11:17→18:49)
[2017-10-06] MEDS: CARVEDILOL 12.5 MG TABLET PO SCH ×2 (11:18→23:06)
[2017-10-06] MEDS: FUROSEMIDE 80 MG TABLET PO SCH ×2 (11:18→18:49)
[2017-10-06] MEDS: ENOXAPARIN SODIUM INJ 30 MG/0.3 ML DISP.SYRIN SUBCUT SCH (11:18)
[2017-10-06] MEDS: SERTRALINE HCL 50 MG TABLET PO SCH (11:18)
[2017-10-06] MEDS: INSULIN DETEMIR 100 UNIT/ML 3 ML PEN SUBCUT SCH ×2 (11:19→23:08)
[2017-10-06] MEDS ORDERED: SORBITOL 70% SOLUTION 30 ML UDC PO ONE (12:00)
[2017-10-06 15:46] LABS: APPEARANCE,URINE SLIGHTLY-CLOUDY; BILIRUBIN,URINE NEGATIVE (NEGATIVE); GLUCOSE, URINE 50 mg/dL (NEGATIVE); KETONES,URINE NEGATIVE (NEGATIVE); LEUKOCYTE ESTERASE,URINE MODERATE (NEGATIVE); NITRITE,URINE NEGATIVE (NEGATIVE); PROTEIN,URINE NEGATIVE (NEGATIVE); URINE SPECIFIC GRAVITY 1.011; UROBILINOGEN,URINE NEGATIVE mg/dL (<2.0)
[2017-10-06] MEDS: CEFTRIAXONE 1 GM/D5W RTU 1 GM/50 ML RTUPB IV SCH (23:05)
[2017-10-06] MEDS: ATORVASTATIN CALCIUM 20 MG TABLET PO SCH (23:06)
[2017-10-07] MEDS: LEVALBUTEROL HCL NEB 1.25 MG/3 ML AMPUL NEB SCH ×3 (02:27→14:07)
[2017-10-07] MEDS: LEVOTHYROXINE SODIUM 0.088 MG TABLET PO SCH (06:51)
[2017-10-07] MEDS: PREGABALIN 75 MG CAPSULE PO SCH ×2 (06:51→13:47)
[2017-10-07] MEDS: BUDESONIDE NEB 0.5 MG/2 ML AMPUL NEB SCH (08:34)
[2017-10-07] MEDS: INSULIN DETEMIR 100 UNIT/ML 3 ML PEN SUBCUT SCH (10:29)
[2017-10-07] MEDS: ENOXAPARIN SODIUM INJ 30 MG/0.3 ML DISP.SYRIN SUBCUT SCH (10:29)
[2017-10-07] MEDS: FAMOTIDINE INJ/PF 20 MG/2 ML SDV IV SCH (10:29)
[2017-10-07] MEDS: INSULIN LISPRO 100 UNIT/ML 3 ML VIAL SUBCUT SCH ×2 (10:29→13:47)
[2017-10-07] MEDS: LACTOBACILLUS ACIDOPHILUS 250 MG TAB PO SCH (10:30)
[2017-10-07] MEDS: FUROSEMIDE 80 MG TABLET PO SCH (10:30)
[2017-10-07] MEDS: SERTRALINE HCL 50 MG TABLET PO SCH (10:30)
[2017-10-07] MEDS: CARVEDILOL 12.5 MG TABLET PO SCH (10:30)
[2017-10-07 12:41] VITALS: BP 127/34
--- NOTE | 2017-10-07 13:32 | PDOC TRANSFER SUMMARY ---
General - Admit/Disc Date/PCP Admission Date/Primary Care Provider: 09/27/17 17:56 PANDA RODRIGUEZ Discharge Date: 10/07/17 - Discharge Diagnosis (1) Gram-positive cocci bacteremia Is this a current diagnosis for this admission?: Yes (2) Sepsis Is this a current diagnosis for this admission?: Yes (3) CKD (chronic kidney disease) stage 4, GFR 15-29 ml/min Is this a current diagnosis for this admission?: Yes (4) UTI (urinary tract infection) Is this a current diagnosis for this admission?: Yes (5) Morbid obesity with BMI of 45.0-49.9, adult Is this a current diagnosis for this admission?: Yes (6) Acute encephalopathy Is this a current diagnosis for this admission?: Yes (7) CHF (congestive heart failure) Is this a current diagnosis for this admission?: Yes (8) Diabetes mellitus, type II Is this a current diagnosis for this admission?: Yes (9) Hypernatremia Is this a current diagnosis for this admission?: Yes (10) COPD (chronic obstructive pulmonary disease) Is this a current diagnosis for this admission?: Yes (11) Sleep apnea Is this a current diagnosis for this admission?: Yes (12) Hypomagnesemia Is this a current diagnosis for this admission?: Yes (13) Constipation Is this a current diagnosis for this admission?: Yes - Additional Information Resuscitation Status: Full Code Discharge Diet: Cardiac, Diabetic Discharge Activity: Bedrest Home Medications: Acetaminophen [Tylenol 325 mg Tablet] 650 mg PO Q4HP PRN 09/27/17 Atorvastatin Calcium [Lipitor 20 mg Tablet] 20 mg PO QHS 09/27/17 Carboxymethylcellulose Sodium [Refresh Tears] 1 drop OU TID 09/27/17 Carvedilol [Coreg 12.5 mg Tablet] 12.5 mg PO Q12 09/27/17 Cetirizine HCl [Zyrtec 10 mg Tablet] 1 tab PO DAILY 09/27/17 Cyanocobalamin (Vitamin B-12) [Vitamin B-12 500 mcg Tablet] 500 mcg PO DAILY Ergocalciferol (Vitamin D2) [Vitamin D2] 50,000 unit PO WESA@1000 09/27/17 Fenofibrate Nanocrystallized [Tricor 145 mg Tablet] 145 mg PO QHS 09/27/17 Ferrous Sulfate [Feosol 325 mg Tablet] 325 mg PO BID 09/27/17 Furosemide [Lasix 80 mg Tablet] 80 mg PO BID 09/27/17 Insulin Glargine,Hum.rec.anlog [Julio Césararuna Noybillar] 200 unit SQ QAM 09/27/17 Insulin Lispro [Humalog Insulin (Lispro) 100 unit/mL] 15 unit SUBCUT MEALS 09/27 L. Rhamnosus GG/Inulin [Culturelle Capsule] 1 each PO BID 09/27/17 Levalbuterol HCl [Xopenex Neb 1.25 mg/3 ml Ampul] 1.25 mg NEB RTQ8HP PRN Levothyroxine Sodium [Synthroid 0.088 mg Tablet] 88 mcg PO Q6AM 09/27/17 Loperamide HCl [Imodium 2 mg Capsule] 2 mg PO Q6HP PRN 09/27/17 Omeprazole 20 mg PO Q6AM 09/27/17 Ondansetron HCl [Zofran 4 mg Tablet] 1 tab PO Q6HP PRN 09/27/17 Primidone [Mysoline 50 mg Tablet] 25 mg PO QHS 09/27/17 Sertraline HCl [Zoloft 50 mg Tablet] 25 mg PO DAILY 09/27/17 Tramadol HCl [Ultram 50 mg Tablet] 50 mg PO TIDP PRN 09/27/17 Aspirin [Aspirin 81 mg Chewable Tablet] 81 mg PO DAILY #30 pkg 10/07/17 Pregabalin [Lyrica 75 mg Capsule] 75 mg PO Q8 2 Days #6 capsule 10/07/17 History of Present Illness Admission Date/PCP: 09/27/17 17:56 PANDA RODRIGUEZ History of Present Illness: LORETO JOSHI is a 67 year old female from [facility]. Patient brought in for change in mentation. Patient is very drowsy and is unable to give any history. Per patient's son, patient was doing well the day or so before. On the day of admission patient was found to be lethargic and febrile with a temperature of 103. There is concern that patient may have UTI as she has a history of recurrent UTI with Klebsiella and ESBL. In the ED patient UA was concerning for UTI. Patient was given a dose of ceftriaxone. Patient was also found to have a leukocytosis of 16,000. She was hypernatremic at 149. Patient flew screen was negative CT scan of the head did not show any acute findings. Hospitalist service called to admit the patient for further workup and evaluation. H&P wrist written by Dr. Fatimah Velásquez M.D. Hospital Course Hospital Course: RASHIDA is a 67-year-old female with multiple comorbidities presenting to the hospital lethargic and obtunded. Patient was found to sepsis due to bacteremia and UTI. Patient was initially on vancomycin and ertapenem. When her cultures came back for E. coli and MSSA, patient was switched to ceftriaxone. Patient has received 9 days of treatment. Repeat cultures have been negative. Patient has been doing well. Patient states she feels better. Patient complains of not having a good appetite however that is chronic. Patient had a large bowel movement on 10/06/2017. Was using her own CPAP machine during his hospitalization. Patient breathing is now comfortable. She was continued on duo nebs and budesonide. Patient was also hypernatremic on admission and that has since resolved. Patient has a history of chronic kidney disease but presented with superimposed acute renal failure which is also now resolved. So with poorly controlled blood glucoses however patient is not on her home medications as we do not have them here. Patient blood glucoses will most likely be better controlled when she is on her normal regimen. Despite not having her home medications we were able to control her blood glucoses fairly well using basal bolus insulin. Patient was started on a baby aspirin along with the statin she is already on as patient reports recurrent TIAs and strokes. Patient appears to be back to her baseline. Awake alert interactive and appropriate. Patient will be transferred back to [facility] for continuation of her care. Physical Exam Vital Signs: Temp Pulse Resp BP Pulse Ox 97.5 F 68 20 127/34 H 95 10/07/17 11:46 10/07/17 11:46 10/07/17 11:46 10/07/17 11:46 10/07/17 11:46 Intake & Output 10/06/17 10/07/17 10/08/17 06:59 06:59 06:59 Intake Total 1117 948 Output Total 1900 1700 Balance -733 -052 Weight 136.9 kg 136.2 kg Results Laboratory Results: 10/06/17 07:10 09/30/17 05:03 10/06/17 15:20 Urine Color YELLOW Urine Appearance SLIGHTLY-CLOUDY Urine pH 6.0 Ur Specific [place] 1.011 Urine Protein NEGATIVE Urine Glucose (UA) 50 H Urine Ketones NEGATIVE Urine Blood NEGATIVE Urine Nitrite NEGATIVE Ur Leukocyte Esterase MODERATE H Ur Squamous Epith Cells FEW Impressions: Chest X-Ray 09/27/17 14:29 IMPRESSION: CARDIAC ENLARGEMENT. VASCULAR CONGESTION. Head CT 09/27/17 14:30 IMPRESSION: MILD CHRONIC CHANGES OF ATROPHY AND MICROVASCULAR ISCHEMIA. NO ACUTE PROCESS. EVIDENCE OF ACUTE STROKE: NO. Transfer Plan - Disposition Transfer Plan: Transferred back to [facility] to continue her care. - Time Spent with Patient Time spent with patient: Greater than 30 Minutes Qualifiers PATEINT BEING DISCHARGED WITH ANY OF THE FOLLOWING DIAGNOSIS?: No Plan Time Spent: Greater than 30 Minutes - To continue her care at [facility].
[2017-10-07] MEDS: INSULIN LISPRO 100 UNIT/ML 3 ML VIAL SUBCUT PRN (13:47)
== END 2017-10-07 15:25 | DRG 871 ==
LOC: ER 14:14 → EH 17:56 → 3S 20:49
PROVIDERS: ADMIT Internal Medicine; ATTEND Internal Medicine
PROC: 5A09457 Assistance with Respiratory Ventilation, 24-96 Consecutive Hours, Continuous Positive Airway Pressure (ICD-10-PCS; principal; 2017-09-27)
PROC: 3E0F73Z Introduction of Anti-inflammatory into Respiratory Tract, Via Natural or Artificial Opening (ICD-10-PCS; 2017-09-27)
DX: A41.51 Sepsis due to Escherichia coli [E. coli] (principal); G93.41 Metabolic encephalopathy; Z68.42 Body mass index [BMI] 45.0-49.9, adult; I50.32 Chronic diastolic (congestive) heart failure; E87.0 Hyperosmolality and hypernatremia; N18.4 Chronic kidney disease, stage 4 (severe); N39.0 Urinary tract infection, site not specified; N17.9 Acute kidney failure, unspecified; A40.1 Sepsis due to streptococcus, group B; E86.0 Dehydration; I48.0 Paroxysmal atrial fibrillation; M19.90 Unspecified osteoarthritis, unspecified site; F32.9 Major depressive disorder, single episode, unspecified; E66.01 Morbid (severe) obesity due to excess calories; E11.65 Type 2 diabetes mellitus with hyperglycemia; I12.9 Hypertensive chronic kidney disease with stage 1 through stage 4 chronic kidney disease, or unspecified chronic kidney disease; M10.9 Gout, unspecified; E11.22 Type 2 diabetes mellitus with diabetic chronic kidney disease; E83.42 Hypomagnesemia; K59.00 Constipation, unspecified; Z90.49 Acquired absence of other specified parts of digestive tract; Z79.899 Other long term (current) drug therapy; Z87.891 Personal history of nicotine dependence; Z79.4 Long term (current) use of insulin; Z85.41 Personal history of malignant neoplasm of cervix uteri; Z87.440 Personal history of urinary (tract) infections; Z86.73 Personal history of transient ischemic attack (TIA), and cerebral infarction without residual deficits; Z79.82 Long term (current) use of aspirin
CPT/HCPCS: 36415; 36600; 51702; 70450; 71020; 80048; 80053; 80307; 81001; 82140; 82272; 82803; 82962; 83605; 83690; 83735; 84100; 85025; 85027; 85610; 87040; 87045; 87077; 87086; 87088; 87186; 87205; 87493; 87804; 93005; 93010; 93306; 94640; 94660; 96365; 99285; J0696; J1335; J1650; J1815; J1940; J2405; J3370; J3475; J3490; J7030; J7040; J7060; S0028

== ENCOUNTER 2017-11-25 21:20 | Inpatient (IN) | payer MEDICARE, MEDICAID, OTHER ==
[2017-11-25] MEDS ORDERED: NORMAL SALINE 1000 ML 1,000 ML IV ONE (21:29)
[2017-11-25] MEDS ORDERED: PIPERACILLIN/TAZOBACTAM 3.375 GM VIAL IV ONE (21:36)
[2017-11-25] MEDS ORDERED: VANCOMYCIN HCL INJ 1000 MG VIAL IV ONE (21:36)
--- NOTE | 2017-11-25 21:38 | ER Document Report ---
ED General - General Stated Complaint: POSSIBLE FEVER WITH COUGH Time Seen by Provider: 11/25/17 21:27 Cannot obtain history due to: Altered mental status Notes: Patient is a 67-year-old female with a past medical history of morbid obesity, multiple MIs, multiple strokes, currently resides in a nursing facility who presents with 1 week of cough, sputum production and intermittent fever. She had a fever up to 103.7 today. Son was very concerned the patient was altered, not acting like herself and asked that she be transported to the emergency department. She has apparently been tested for flu at the facility and was negative. The patient herself states that she just feels poorly and is unable to provide any significant details. The son states that the baseline patient is alert, oriented and conversant. She has not had any vomiting or diarrhea. She has had cough and complained of increased shortness of breath. The son also notes that he is concerned about a possible infection on the chronic wound of her left great toe. Nothing seems to improve or worsen her symptoms. She does not have a recent history of similar symptoms. TRAVEL OUTSIDE OF THE [place] IN LAST 30 DAYS: No - Related Data Allergies/Adverse Reactions: No Known Allergies Allergy (Verified 04/07/16 16:28) Past Medical History - General Information source: Patient, Relative - Social History Smoking Status: Never Smoker Frequency of alcohol use: None Drug Abuse: None Lives with: [facility] Family History: Hypertension - Past Medical History Cardiac Medical History: Reports: Hx Atrial Fibrillation - Paroxysmal, Hx Congestive Heart Failure, Hx Coronary Artery Disease, Hx Heart Attack, Hx Hypercholesterolemia, Hx Hypertension Denies: Hx DVT, Hx Pulmonary Embolism Pulmonary Medical History: Reports: Hx COPD, Hx Pneumonia, Hx Sleep Apnea Denies: Hx Asthma, Hx Bronchitis Neurological Medical History: Denies: Hx Cerebrovascular Accident, Hx Seizures Endocrine Medical History: Reports: Hx Diabetes Mellitus Type 1, Hx Diabetes Mellitus Type 2, Hx Hypothyroidism. Denies: Hx Hyperthyroidism Renal/ Medical History: Reports: Hx End Stage Renal Disease. Denies: Hx Peritoneal Dialysis Malignancy Medical History: Reports: Hx Cervical Cancer GI Medical History: Denies: Hx Cirrhosis, Hx Hepatitis Musculoskeltal Medical History: Reports Hx Arthritis, Reports Hx Gout Skin Medical History: Denies Hx Eczema, Denies Hx Psoriasis Psychiatric Medical History: Reports: Hx Depression Infectious Medical History: Reports: Hx C-Diff - History of severe persistent C. difficile while in [place] and underwent fec. Denies: Hx Hepatitis Past Surgical History: Reports: Hx Abdominal Surgery - umbilical hernia, Hx Appendectomy, Hx Section, Hx Cholecystectomy, Hx Herniorrhaphy, Other - Breast cyst, history of fecal transplant for C. difficile. Denies: Hx Hysterectomy - Immunizations Hx Diphtheria, Pertussis, Tetanus Vaccination: Yes Hx Pneumococcal Vaccination: 08/06/15 Review of Systems - Review of Systems Notes: Constitutional: Positive for fever. HENT: Negative for sore throat. Eyes: Negative for visual changes. Cardiovascular: Negative for chest pain. Respiratory: Positive for cough and shortness of breath Gastrointestinal: Negative for abdominal pain, vomiting or diarrhea. Genitourinary: Negative for dysuria. Musculoskeletal: Negative for back pain. Skin: Negative for rash. Neurological: Negative for headaches, weakness or numbness. 10 point ROS negative except as marked above and in HPI. Physical Exam - Vital signs Vitals: Temp 99.3 F 11/25/17 21:23 Interpretation: Tachypneic Notes: PHYSICAL EXAMINATION: GENERAL: Somewhat lethargic but wakes easily and does speak although delayed HEAD: Atraumatic, normocephalic. EYES: Pupils equal round and reactive to light, extraocular movements intact, sclera anicteric, conjunctiva are normal. ENT: nares patent, oropharynx clear without exudates. Moderately dry mucous membranes. NECK: Normal range of motion, supple without lymphadenopathy LUNGS: Diminished at the bases bilaterally, moderate tachypnea HEART: Regular rate and rhythm without murmurs ABDOMEN: Soft, nontender, normoactive bowel sounds. No guarding, no rebound. No masses appreciated. EXTREMITIES: Normal range of motion, no pitting or edema. No cyanosis. NEUROLOGICAL: No focal neurological deficits. Moves all extremities spontaneously and on command. PSYCH: Delayed in speech response. Somewhat lethargic SKIN: Warm, Dry, normal turgor, there is a tissue avulsion of the distal aspect of the right great toe with a very malodorous discharge coming from the area Course - Re-evaluation Re-evalutation: 11/25/17 21:37 Patient presents with fever, tachypnea and altered mental status. She is overall ill in appearance but in no acute distress. She is obviously altered, asking repetitive questions and is very slow to respond to questioning. Her son at the bed light side says that this is not all normal, she is normally alert and oriented 4. Patient is saturating 95% on her normal home 2 L of nasal cannula. She does have an obvious wound infection to the great toe of the right lower extremity with a very malodorous discharge. However there is no streaking redness to suggest a spreading cellulitis that one would anticipate to trigger generalized altered mental status and fever. Will obtain chest x-ray, flu screen, blood cultures, urinalysis and urine cultures, lactate screening, and begin broad-spectrum antibiotics as patient is in a residential facility and at risk for HCAP. 11/26/17 00:39 Patient has tested positive for flu A. UA also shows findings consistent with a uti. CXR without evidence of an acute pneumonia. I have discussed with Dr. Sanz for admission given patient's continued ill appearance and altered mental status. She does continue to wake easily, is alert and oriented but is slow to answer. Dr. Sanz has requested surgeon consult on this patient and they will be contacted - Vital Signs Vital signs: Temp Pulse Resp BP Pulse Ox 99.3 F 19 172/90 H 95 11/25/17 21:23 11/26/17 00:02 11/26/17 00:32 11/26/17 00:02 - Laboratory Result Diagrams: 11/25/17 21:30 11/25/17 21:30 Laboratory results interpreted by me: 11/25/17 11/25/17 11/25/17 21:30 21:30 21:30 RBC 3.40 L Hgb 10.6 L Hct 31.9 L RDW 14.2 H VBG pH 7.47 H VBG HCO3 39.7 H Chloride 96 L Carbon Dioxide 39 H BUN 56 H Creatinine 2.05 H Est GFR ( Amer) 29 L Est GFR (Non-Af Amer) 24 L Ur Leukocyte Esterase 11/25/17 23:20 RBC Hgb Hct RDW VBG pH VBG HCO3 Chloride Carbon Dioxide BUN Creatinine Est GFR ( Amer) Est GFR (Non-Af Amer) Ur Leukocyte Esterase TRACE H - Diagnostic Test Radiology reviewed: Image reviewed, Reports reviewed Radiology results interpreted by me: 11/26/17 00:40 Chest x-ray: No acute infiltrate, vascular congestion Discharge - Discharge Clinical Impression: Infected wound, Chronic kidney disease, stage 3 Sepsis Qualifiers: Sepsis type: sepsis due to unspecified organism Qualified Code(s): A41.9 - Sepsis, unspecified organism UTI (urinary tract infection) Qualifiers: Urinary tract infection type: acute cystitis Hematuria presence: without hematuria Qualified Code(s): N30.00 - Acute cystitis without hematuria Altered mental status Qualifiers: Altered mental status type: somnolence Qualified Code(s): R40.0 - Somnolence Condition: Fair Disposition: ADMITTED INPATIENT [facility] Admitted: Telemetry
[2017-11-25 21:47] LABS: ABSOLUTE BASOPHILS # (AUTO) 0.1 10^3/uL (0.0-0.2); ABSOLUTE LYMPHOCYTES (AUTO) 1.6 10^3/uL (0.5-4.7); ABSOLUTE MONOCYTES (AUTO) 1.2 10^3/uL (0.1-1.4); ABSOLUTE NEUT (AUTO) 6.5 10^3/uL (1.7-8.2); BASOPHILS % (AUTO) 0.7 % (0-2); EOSINOPHILS % (AUTO) 0.3 % (0-6); HEMATOCRIT 31.9 % (36.0-47.0); HEMOGLOBIN 10.6 g/dL (12.0-15.5); LYMPHOCYTES % (AUTO) 16.8 % (13-45); MEAN CORPUSCULAR HEMOGLOBIN 31.2 pg (27.0-33.4); MEAN CORPUSCULAR HGB CONC 33.3 g/dL (32.0-36.0); MEAN CORPUSCULAR VOLUME 94 fl (80-97); MONOCYTES % (AUTO) 12.6 % (3-13); PLATELET COUNT 172 10^3/uL (150-450); RED CELL DISTRIBUTION WIDTH 14.2 % (11.5-14.0); SEGMENTED NEUTROPHILS % (AUTO) 69.6 % (42-78); TOTAL CELLS COUNTED % (AUTO) 100 %; WHITE BLOOD COUNT 9.3 10^3/uL (4.0-10.5)
[2017-11-25 21:53] LABS: VENOUS BLOOD BASE EXCESS 13.4 mmol/L; VENOUS BLOOD HCO3 39.7 mmol/L (20-32); VENOUS BLOOD PCO2 56.3 mmHg (35-63); VENOUS BLOOD PH 7.47 (7.30-7.42)
[2017-11-25 22:19] LABS: BLOOD UREA NITROGEN 56 mg/dL (7-20); CALCIUM 9.9 mg/dL (8.4-10.2); CHLORIDE 96 mmol/L (98-107); GLUCOSE 106 mg/dL (75-110); POTASSIUM 3.8 mmol/L (3.6-5.0); SODIUM 142.9 mmol/L (137-145)
--- NOTE | 2017-11-25 22:26 | RADIOLOGY REPORT (SQ) ---
EXAM DESCRIPTION: CHEST SINGLE VIEW COMPLETED DATE/TIME: 11/25/2017 10:10 pm REASON FOR STUDY: fever, sob COMPARISON: 09/27/2017 and 08/30/2017 NUMBER OF VIEWS: One view. TECHNIQUE: Single frontal radiographic view of the chest acquired. LIMITATIONS: None. FINDINGS: LUNGS AND PLEURA: No opacities, masses or pneumothorax. No pleural effusion. MEDIASTINUM AND HILAR STRUCTURES: No masses. Contour normal. HEART AND VASCULAR STRUCTURES: Heart enlarged without failure. Mild central vascular congestion, chr onic. BONES: No acute findings. HARDWARE: None in the chest. OTHER: No other significant finding. IMPRESSION: Stable radiographic appearance of the chest demonstrating cardiomegaly and mild central vascular congestion. TECHNICAL DOCUMENTATION: JOB ID: [id number] [employer]- All Rights Reserved
--- NOTE | 2017-11-25 22:29 | RADIOLOGY REPORT (SQ) ---
EXAM DESCRIPTION: TOE RIGHT COMPLETED DATE/TIME: 11/25/2017 10:10 pm REASON FOR STUDY: eval osteo COMPARISON: None. NUMBER OF VIEWS: Three views. TECHNIQUE: AP, lateral, and oblique images acquired of the right first toe. LIMITATIONS: Toe flexion deformities and overlying bandaging material limit examination. FINDINGS: MINERALIZATION: Osteopenia. BONES: A healed fracture deformity is seen of the 5th metatarsal. No other fractures are identified. JOINTS: No effusions. SOFT TISSUES: Soft tissue irregularity is seen of the great toe. OTHER: No other significant finding. IMPRESSION: Soft tissue irregularity of the great toe without definite periosteal reaction to sugges t osteomyelitis. This is seen in the setting of severe osteopenia and a healed fracture deformity of the 5th metatarsal. COMMENT: SITE OF TRAUMA/COMPLAINT MARKED/STAMP COMPLETED: NOT APPLICABLE. TECHNICAL DOCUMENTATION: JOB ID: [id number] [employer]- All Rights Reserved
[2017-11-25 22:43] LABS: ANION GAP 8 (5-19)
[2017-11-25 22:46] LABS: CARBON DIOXIDE 39 mmol/L (22-30)
[2017-11-25 23:15] LABS: A TYPE INFLUENZA AG POSITIVE (NEGATIVE); B INFLUENZA AG NEGATIVE (NEGATIVE)
[2017-11-25 23:44] LABS: APPEARANCE,URINE CLEAR; BILIRUBIN,URINE NEGATIVE (NEGATIVE); COLOR,URINE YELLOW; GLUCOSE, URINE NEGATIVE (NEGATIVE); KETONES,URINE NEGATIVE (NEGATIVE); LEUKOCYTE ESTERASE,URINE TRACE (NEGATIVE); NITRITE,URINE NEGATIVE (NEGATIVE); PROTEIN,URINE NEGATIVE (NEGATIVE); URINE SPECIFIC GRAVITY 1.012; UROBILINOGEN,URINE NEGATIVE mg/dL (<2.0)
[2017-11-26] MEDS ORDERED: ONDANSETRON 4 MG TAB.RAPDIS PO PRN (00:34)
[2017-11-26] MEDS ORDERED: DEXTROSE 50%-WATER 25 GM/50 ML DISP.SYRIN IV PRN ×2 (01:39)
[2017-11-26] MEDS ORDERED: GLUCAGON,HUMAN RECOMB 1 MG INJ SUBCUT PRN (01:39)
[2017-11-26] MEDS ORDERED: DEXTROSE 40% GEL 15 GM TUBE PO PRN ×2 (01:39)
[2017-11-26] MEDS: LEVALBUTEROL HCL NEB 1.25 MG/3 ML AMPUL NEB PRN ×2 (02:00→14:14)
[2017-11-26] MEDS ORDERED: HYDRALAZINE HCL INJ/PF 20 MG/1 ML SDV ONE (04:11)
[2017-11-26] MEDS ORDERED: HYDRALAZINE HCL INJ/PF 20 MG/1 ML SDV IV PRN (04:54)
[2017-11-26] MEDS ORDERED: CHLORPHENIRAMINE MALEATE 4 MG TABLET PO ONE (04:55)
[2017-11-26] MEDS ORDERED: FLUTICASONE NASAL SPRAY 50 MCG/SPRY 120 SPRAY/16 GM NASL ONE (05:00)
[2017-11-26] MEDS: LANSOPRAZOLE 15 MG TAB.RAP.DR PO SCH (07:11)
[2017-11-26] MEDS: PREGABALIN 75 MG CAPSULE PO SCH ×3 (07:12→21:41)
[2017-11-26] MEDS: HEPARIN SOD (PORCINE) 5,000 UNIT/ML 1 ML SYRINGE SUBCUT SCH ×3 (07:12→21:43)
[2017-11-26] MEDS ORDERED: CHLORPHENIRAMINE MALEATE 4 MG TABLET ONE (07:21)
--- NOTE | 2017-11-26 07:23 | PDOC H&P ---
History of Present Illness Admission Date/PCP: 11/26/17 01:22 Patient complains of: Altered mental status History of Present Illness: LORETO JOSHI is a 67 year old female, resident of [facility] with a past medical history of encephalopathy, chronic hypercapnic respiratory failure , obstructive sleep apnea, morbid obesity, diabetes, atrial fibrillation, congestive heart failure, coronary artery disease and stage III chronic kidney disease. She presents with altered mentation by prison staff prompting evaluation emergency room where she is found to have fever, rhonchi, influenza A, a urinary tract infection, and gangrenous great right toe. She is ordered vancomycin, Unasyn and Tamiflu and referred to the hospitalist for admission. Patient is unable to provide history. Past Medical History Cardiac Medical History: Reports: Atrial Fibrillation - Paroxysmal, Congestive Heart Failure, Coronary Artery Disease, Myocardial Infarction, Hyperlipidema, Hypertension Denies: DVT, Pulmonary Embolism Pulmonary Medical History: Reports: Chronic Obstructive Pulmonary Disease (COPD) , Pneumonia, Sleep Apnea Denies: Asthma, Bronchitis Neurological Medical History: Denies: Seizures Endocrine Medical History: Reports: Diabetes Mellitus Type 1, Diabetes Mellitus Type 2, Hypothyroidism, Obesity Denies: Hyperthyroidism Renal/ Medical History: Reports: End Stage Renal Disease Malignancy Medical History: Reports: Cervical Cancer GI Medical History: Denies: Cirrhosis, Hepatitis Musculoskeltal Medical History: Reports: Arthritis, Gout Skin Medical History: Denies: Eczema, Psoriasis Psychiatric Medical History: Reports: Depression Hematology: Reports: Anemia Infectious Medical History: Reports: Clostridium Difficile - History of severe persistent C. difficile while in [place] and underwent fec Past Surgical History Past Surgical History: Reports: Appendectomy, Section, Cholecystectomy , Herniorrhaphy, Other - Breast cyst, history of fecal transplant for C. difficile Denies: Hysterectomy Social History Information Source: Emergency Med Personnel, [facility] Records Lives with: Group Home Smoking Status: Never Smoker Frequency of Alcohol Use: None Hx Recreational Drug Use: No Drugs: None Hx Prescription Drug Abuse: No - Advance Directive Resuscitation Status: Full Code Family History Family History: Hypertension Parental Family History Reviewed: No - Unobtainable Children Family History Reviewed: No - Unobtainable Sibling(s) Family History Reviewed.: No - Unobtainable Medication/Allergy Home Medications: Acetaminophen [Tylenol 325 mg Tablet] 650 mg PO Q4HP PRN 09/27/17 Atorvastatin Calcium [Lipitor 20 mg Tablet] 20 mg PO QHS 09/27/17 Carboxymethylcellulose Sodium [Refresh Tears] 1 drop OU TID 09/27/17 Carvedilol [Coreg 12.5 mg Tablet] 12.5 mg PO Q12 09/27/17 Cetirizine HCl [Zyrtec 10 mg Tablet] 1 tab PO DAILY 09/27/17 Cyanocobalamin (Vitamin B-12) [Vitamin B-12 500 mcg Tablet] 500 mcg PO DAILY Ergocalciferol (Vitamin D2) [Vitamin D2] 50,000 unit PO WESA@1000 09/27/17 Fenofibrate Nanocrystallized [Tricor 145 mg Tablet] 145 mg PO QHS 09/27/17 Ferrous Sulfate [Feosol 325 mg Tablet] 325 mg PO BID 09/27/17 Furosemide [Lasix 80 mg Tablet] 80 mg PO BID 09/27/17 Insulin Glargine,Hum.rec.anlog [Toucuate Solostar] 200 unit SQ QAM 09/27/17 Insulin Lispro [Humalog Insulin (Lispro) 100 unit/mL] 15 unit SUBCUT MEALS 09/27 L. Rhamnosus GG/Inulin [Culturelle Capsule] 1 each PO BID 09/27/17 Levalbuterol HCl [Xopenex Neb 1.25 mg/3 ml Ampul] 1.25 mg NEB RTQ8HP PRN Levothyroxine Sodium [Synthroid 0.088 mg Tablet] 88 mcg PO Q6AM 09/27/17 Loperamide HCl [Imodium 2 mg Capsule] 2 mg PO Q6HP PRN 09/27/17 Omeprazole 20 mg PO Q6AM 09/27/17 Ondansetron HCl [Zofran 4 mg Tablet] 1 tab PO Q6HP PRN 09/27/17 Primidone [Mysoline 50 mg Tablet] 25 mg PO QHS 09/27/17 Sertraline HCl [Zoloft 50 mg Tablet] 25 mg PO DAILY 09/27/17 Tramadol HCl [Ultram 50 mg Tablet] 50 mg PO TIDP PRN 09/27/17 Aspirin [Aspirin 81 mg Chewable Tablet] 81 mg PO DAILY #30 pkg 10/07/17 Pregabalin [Lyrica 75 mg Capsule] 75 mg PO Q8 2 Days #6 capsule 10/07/17 Allergies/Adverse Reactions: No Known Allergies Allergy (Verified 04/07/16 16:28) Review of Systems ROS unobtainable: Due to mental status - Obtunded Physical Exam Vital Signs: Temp Pulse Resp BP Pulse Ox 99.7 F 22 H 177/71 H 97 11/26/17 04:00 11/26/17 05:31 11/26/17 05:31 11/26/17 05:31 General appearance: PRESENT: disheveled, mild distress, morbidly obese Head exam: PRESENT: atraumatic, normocephalic Eye exam: PRESENT: conjunctiva pink, EOMI, PERRLA. ABSENT: scleral icterus Ear exam: PRESENT: normal external ear exam Mouth exam: PRESENT: moist, tongue midline Neck exam: ABSENT: carotid bruit, JVD, lymphadenopathy, thyromegaly Respiratory exam: PRESENT: accessory muscle use, crackles, prolonged expiratory phas, rales, retraction, rhonchi, tachypnea. ABSENT: clear to auscultation emperatriz , wheezes Cardiovascular exam: PRESENT: gallop, +S1, +S2, tachycardia Pulses: PRESENT: normal dorsalis pedis pul Vascular exam: PRESENT: normal capillary refill GI/Abdominal exam: PRESENT: normal bowel sounds, soft. ABSENT: distended, guarding, mass, organolmegaly, rebound, tenderness Rectal exam: PRESENT: deferred Extremities exam: PRESENT: full ROM, other - Right great toe necrosis with malodorous discharge. ABSENT: calf tenderness, clubbing, pedal edema Neurological exam: PRESENT: altered, CN II-XII grossly intact Skin exam: PRESENT: dry, intact, warm. ABSENT: cyanosis, rash Results Impressions: Chest X-Ray 11/25/17 21:27 IMPRESSION: Stable radiographic appearance of the chest demonstrating cardiomegaly and mild central vascular congestion. Toe X-Ray 11/25/17 21:39 IMPRESSION: Soft tissue irregularity of the great toe without definite periosteal reaction to suggest osteomyelitis. This is seen in the setting of severe osteopenia and a healed fracture deformity of the 5th metatarsal. Assessment & Plan - Diagnosis (1) Influenza, pneumonia Is this a current diagnosis for this admission?: Yes Plan: Complicated by chronic disease, Morbid obesity and sleep apnea. Tamiflu, albuterol and Atrovent, spirometry and BiPAP ordered follow-up CBC and blood culture (2) Altered mental status Qualifiers: Altered mental status type: somnolence Qualified Code(s): R40.0 - Somnolence Is this a current diagnosis for this admission?: Yes Plan: Secondary to acute illness supportive care, evaluate for hypercapnia and BiPAP as needed (3) Chronic kidney disease, stage 3 Is this a current diagnosis for this admission?: Yes Plan: Avoid nephrotoxic meds and doses reevaluate chemistry (4) Infected wound Is this a current diagnosis for this admission?: Yes Plan: Diabetic great toe ulcer with necrosis, empiric antibiotics initiated in the ED , surgical consultation (5) UTI (urinary tract infection) Qualifiers: Urinary tract infection type: acute cystitis Hematuria presence: without hematuria Qualified Code(s): N30.00 - Acute cystitis without hematuria Is this a current diagnosis for this admission?: Yes Plan: Empiric antibiotics initiated in the emergency room, follow-up urine and blood culture. - Time Time Spent: 50 to 70 Minutes - Inpatient Certification Medical Necessity: Need Close Monitoring Due to Risk of Patient Decompensation
[2017-11-26] MEDS ORDERED: LEVOTHYROXINE SODIUM 0.088 MG TABLET ONE (07:30)
[2017-11-26] MEDS ORDERED: INSULIN GLARGINE,HUM.REC.ANLOG 1,000 UNIT/10 ML UNIT SUBCUT SCH (08:00)
[2017-11-26] MEDS: LEVOTHYROXINE SODIUM 0.088 MG TABLET PO SCH (08:25)
[2017-11-26] MEDS ORDERED: LEVOFLOXACIN 500 MG/D5W RTU 500 MG/100 ML RTUPB IV SCH (10:00)
[2017-11-26] MEDS ORDERED: ASPIRIN 81 MG TABLET, CHEWABLE PO SCH (10:00)
[2017-11-26] MEDS: FUROSEMIDE 80 MG TABLET PO SCH ×2 (10:34→20:29)
[2017-11-26] MEDS: INSULIN LISPRO 100 UNIT/ML 3 ML VIAL SUBCUT SCH ×3 (12:24→17:34)
--- NOTE | 2017-11-26 13:01 | PDOC CONSULTATION ---
Consultation Consult Date: 11/26/17 Consult reason:: right great toe skin growth History of Present Illness Admission Date/PCP: 11/26/17 01:22 History of Present Illness: 67 y/o female, obese, with diabetes and peripheral neuropathy who has being admitted for pneumonia. She has a right great toe distal phalanx growth which bleeds easily. Past Medical History Cardiac Medical History: Reports: Atrial Fibrillation - Paroxysmal, Congestive Heart Failure, Coronary Artery Disease, Myocardial Infarction, Hyperlipidema, Hypertension Denies: DVT, Pulmonary Embolism Pulmonary Medical History: Reports: Chronic Obstructive Pulmonary Disease (COPD) , Pneumonia, Sleep Apnea Denies: Asthma, Bronchitis Neurological Medical History: Denies: Seizures Endocrine Medical History: Reports: Diabetes Mellitus Type 1, Diabetes Mellitus Type 2, Hypothyroidism, Obesity Denies: Hyperthyroidism Renal/ Medical History: Reports: End Stage Renal Disease Malignancy Medical History: Reports: Cervical Cancer GI Medical History: Denies: Cirrhosis, Hepatitis Musculoskeltal Medical History: Reports: Arthritis, Gout Skin Medical History: Denies: Eczema, Psoriasis Psychiatric Medical History: Reports: Depression Hematology: Reports: Anemia Infectious Medical History: Reports: Clostridium Difficile - History of severe persistent C. difficile while in [place] and underwent fec Past Surgical History Past Surgical History: Reports: Appendectomy, Section, Cholecystectomy , Herniorrhaphy, Other - Breast cyst, history of fecal transplant for C. difficile Denies: Hysterectomy Social History Lives with: Alf Smoking Status: Never Smoker Frequency of Alcohol Use: None Hx Recreational Drug Use: No Drugs: None Hx Prescription Drug Abuse: No - Advance Directive Resuscitation Status: Full Code Family History Family History: Hypertension Parental Family History Reviewed: No Children Family History Reviewed: No Sibling(s) Family History Reviewed.: No Medication/Allergy Home Medications: No Home Medications 11/26/17 Allergies/Adverse Reactions: No Known Allergies Allergy (Verified 04/07/16 16:28) Physical Exam Vital Signs: Temp Pulse Resp BP Pulse Ox 99.7 F 86 23 H 165/69 H 99 11/26/17 04:00 11/26/17 10:02 11/26/17 11:02 11/26/17 11:02 11/26/17 11:02 General appearance: PRESENT: mild distress Skin exam: PRESENT: other - right great toe distal phalanx pulp growth Results Impressions: Chest X-Ray 11/25/17 21:27 IMPRESSION: Stable radiographic appearance of the chest demonstrating cardiomegaly and mild central vascular congestion. Toe X-Ray 11/25/17 21:39 IMPRESSION: Soft tissue irregularity of the great toe without definite periosteal reaction to suggest osteomyelitis. This is seen in the setting of severe osteopenia and a healed fracture deformity of the 5th metatarsal. Assessment & Plan - Diagnosis (1) Granuloma pyogenicum Is this a current diagnosis for this admission?: Yes - Plan Summary Plan Summary: A/ Granuloma pyogenicum right great toe distal phalanx pulp P/ Silver nitrate application now and PRN
[2017-11-26] MEDS: GUAIFENESIN 600 MG TABLET.SA PO SCH ×2 (13:09→21:41)
[2017-11-26] MEDS: CETIRIZINE 10 MG TABLET PO SCH (13:09)
[2017-11-26] MEDS: CARVEDILOL 12.5 MG TABLET PO SCH ×2 (13:10→21:41)
[2017-11-26] MEDS: FERROUS SULFATE 325 MG TABLET PO SCH ×2 (13:11→18:44)
--- NOTE | 2017-11-26 17:18 | PDOC PROGRESS REPORT ---
Subjective Progress Note for:: 11/26/17 Subjective:: The patient was admitted to the hospital overnight with influenza pneumonia. She was brought to the hospital due to altered mental status. This morning her mental status seems to be improved. She is awake alert and oriented and answers questions appropriately. Overall she states that she is not feeling any better. She states that she is having diffuse body aches and continues to have a cough. She states she has had chills but is unsure whether she has been running a fever. She states she is not bringing up any sputum. She states she has had some nausea but no vomiting. No abdominal pain. She has not yet had a bowel movement today. She is not having diarrhea. She reports no dysuria, frequency or hematuria. Reason For Visit: GUDELIA DM PNEUMONIA Physical Exam Vital Signs: Temp Pulse Resp BP Pulse Ox 98.4 F 86 17 148/55 H 97 11/26/17 16:35 11/26/17 10:02 11/26/17 16:31 11/26/17 16:31 11/26/17 16:31 General appearance: PRESENT: disheveled, mild distress, morbidly obese Head exam: PRESENT: atraumatic, normocephalic Mouth exam: PRESENT: moist, tongue midline Respiratory exam: PRESENT: other - She has scattered coarse breath sounds throughout all lung phelps. Cardiovascular exam: PRESENT: tachycardia. ABSENT: diastolic murmur, rubs, systolic murmur GI/Abdominal exam: PRESENT: normal bowel sounds, soft. ABSENT: distended, guarding, mass, organolmegaly, rebound, tenderness Rectal exam: PRESENT: deferred Extremities exam: PRESENT: other - Right great toe on the tip is somewhat necrotic. No erythema noted down the toe or any warmth. Neurological exam: PRESENT: alert, awake, oriented to person, oriented to place , oriented to time, oriented to situation, CN II-XII grossly intact. ABSENT: motor sensory deficit Psychiatric exam: PRESENT: appropriate affect, normal mood. ABSENT: homicidal ideation, suicidal ideation Skin exam: PRESENT: dry, intact, warm, other - Again the tip of the right great toe is somewhat necrotic. ABSENT: cyanosis, rash Results Laboratory Results: 11/26/17 13:48 NT-Pro-B Natriuret Pep 1440 H Impressions: Chest X-Ray 11/25/17 21:27 IMPRESSION: Stable radiographic appearance of the chest demonstrating cardiomegaly and mild central vascular congestion. Toe X-Ray 11/25/17 21:39 IMPRESSION: Soft tissue irregularity of the great toe without definite periosteal reaction to suggest osteomyelitis. This is seen in the setting of severe osteopenia and a healed fracture deformity of the 5th metatarsal. Assessment & Plan - Diagnosis (1) Acute encephalopathy Is this a current diagnosis for this admission?: Yes Plan: Secondary to pneumonia and influenza and urinary tract infection. Continue antibiotic therapy. Her encephalopathy already is improving and I suspect is resolved this morning. (2) Influenza, pneumonia Is this a current diagnosis for this admission?: Yes Plan: She has been started on Tamiflu (3) Pneumonia Is this a current diagnosis for this admission?: Yes Plan: The patient is at high risk for a superimposed bacterial infection. She was started on broad-spectrum IV antibiotics with vancomycin, Zosyn and Levaquin. The concerns would be for Gram negatives and MRSA. This will be the first full day of treatment. These can be de-escalated over the next couple of days. (4) Urinary tract infection Is this a current diagnosis for this admission?: Yes Plan: She has gram-negative rods growing in her urine. She is adequately covered on the current regimen. (5) Granuloma pyogenicum Is this a current diagnosis for this admission?: Yes Plan: She was evaluated by general surgery. They do not believe she needs any surgical intervention. X-ray was not concerning for underlying osteomyelitis. (6) Chronic kidney disease, stage 3 Is this a current diagnosis for this admission?: Yes Plan: I am unsure what her baseline is. She will have a chemistry panel drawn in the morning. (7) Chronic hypercapnic respiratory failure Is this a current diagnosis for this admission?: Yes Plan: We will just have to keep a close eye on this as we go along. (8) Obstructive sleep apnea Is this a current diagnosis for this admission?: Yes Plan: Patient son is supposed to bring her CPAP in from home. She refused BiPAP at the time of admission (9) Chronic diastolic (congestive) heart failure Is this a current diagnosis for this admission?: Yes Plan: No evidence of exacerbation at this point. (10) Anemia Is this a current diagnosis for this admission?: Yes Plan: This is a normocytic anemia consistent with chronic disease. She will have a CBC drawn in the morning - Time Time Spent with patient: 25-34 minutes - Inpatient Certification Medical Necessity: Other - Inpatient hospitalization remains necessary. This lady is acutely ill and has multiple comorbidities. She has influenza and already has pneumonia. She needs close monitoring in the hospital and is currently requiring parenteral therapies.
[2017-11-26] MEDS ORDERED: FUROSEMIDE 80 MG TABLET ONE (20:23)
[2017-11-26] MEDS: ATORVASTATIN CALCIUM 20 MG TABLET PO SCH (21:40)
[2017-11-26] MEDS: FLUTICASONE NASAL SPRAY 50 MCG/SPRY 120 SPRAY/16 GM NASL SCH (21:42)
[2017-11-26] MEDS ORDERED: FENOFIBRATE NANOCRYSTALLIZED 145 MG TABLET ONE (22:07)
[2017-11-26] MEDS: FENOFIBRATE NANOCRYSTALLIZED 145 MG TABLET PO SCH (22:22)
[2017-11-27 05:05] LABS: ABSOLUTE BASOPHILS # (AUTO) 0.1 10^3/uL (0.0-0.2); ABSOLUTE EOSINOPHILS # (AUTO) 0.1 10^3/uL (0.0-0.6); ABSOLUTE LYMPHOCYTES (AUTO) 1.8 10^3/uL (0.5-4.7); ABSOLUTE NEUT (AUTO) 4.2 10^3/uL (1.7-8.2); BASOPHILS % (AUTO) 0.8 % (0-2); EOSINOPHILS % (AUTO) 0.9 % (0-6); HEMATOCRIT 30.3 % (36.0-47.0); HEMOGLOBIN 10.2 g/dL (12.0-15.5); LYMPHOCYTES % (AUTO) 25.3 % (13-45); MEAN CORPUSCULAR HEMOGLOBIN 31.5 pg (27.0-33.4); MEAN CORPUSCULAR HGB CONC 33.7 g/dL (32.0-36.0); MEAN CORPUSCULAR VOLUME 93 fl (80-97); MONOCYTES % (AUTO) 13.9 % (3-13); PLATELET COUNT 151 10^3/uL (150-450); RED BLOOD COUNT 3.24 10^6/uL (3.72-5.28); RED CELL DISTRIBUTION WIDTH 14.1 % (11.5-14.0); SEGMENTED NEUTROPHILS % (AUTO) 59.1 % (42-78); TOTAL CELLS COUNTED % (AUTO) 100 %; WHITE BLOOD COUNT 7.1 10^3/uL (4.0-10.5)
[2017-11-27] MEDS: LANSOPRAZOLE 15 MG TAB.RAP.DR PO SCH (05:17)
[2017-11-27] MEDS: PREGABALIN 75 MG CAPSULE PO SCH ×3 (05:17→22:23)
[2017-11-27] MEDS: HEPARIN SOD (PORCINE) 5,000 UNIT/ML 1 ML SYRINGE SUBCUT SCH ×3 (05:20→22:23)
[2017-11-27 05:31] LABS: ANION GAP 10 (5-19); BLOOD UREA NITROGEN 60 mg/dL (7-20); CALCIUM 9.4 mg/dL (8.4-10.2); CARBON DIOXIDE 33 mmol/L (22-30); CHLORIDE 98 mmol/L (98-107); GLUCOSE 111 mg/dL (75-110); MAGNESIUM 1.8 mg/dL (1.6-2.3); POTASSIUM 3.9 mmol/L (3.6-5.0); SODIUM 141.4 mmol/L (137-145)
[2017-11-27] MEDS ORDERED: LEVOTHYROXINE SODIUM 0.088 MG TABLET ONE (05:31)
[2017-11-27] MEDS: LEVOTHYROXINE SODIUM 0.088 MG TABLET PO SCH (06:20)
[2017-11-27] MEDS ORDERED: INSULIN GLARGINE,HUM.REC.ANLOG 1,000 UNIT/10 ML UNIT SUBCUT SCH (08:00)
[2017-11-27] MEDS: ERTAPENEM SODIUM 1 GM in NORMAL SALINE 50 ML IV SCH (09:47)
[2017-11-27] MEDS: FUROSEMIDE 80 MG TABLET PO SCH (09:48)
[2017-11-27] MEDS: OSELTAMIVIR PHOSPHATE 75 MG CAPSULE PO SCH ×2 (09:49→22:24)
[2017-11-27] MEDS: FLUTICASONE NASAL SPRAY 50 MCG/SPRY 120 SPRAY/16 GM NASL SCH ×2 (09:51→21:46)
[2017-11-27] MEDS: CARVEDILOL 12.5 MG TABLET PO SCH ×2 (10:19→22:23)
[2017-11-27] MEDS: GUAIFENESIN 600 MG TABLET.SA PO SCH ×2 (10:20→22:23)
[2017-11-27] MEDS: ASPIRIN 81 MG TABLET, CHEWABLE PO SCH (10:20)
[2017-11-27] MEDS: FERROUS SULFATE 325 MG TABLET PO SCH ×2 (10:20→17:24)
[2017-11-27] MEDS: LEVALBUTEROL HCL NEB 1.25 MG/3 ML AMPUL NEB PRN ×2 (10:27→19:07)
[2017-11-27] MEDS: LEVOFLOXACIN 250 MG/D5W RTU 250 MG/50 ML RTUPB IV SCH (10:28)
--- NOTE | 2017-11-27 10:34 | PDOC PROGRESS REPORT ---
Subjective Progress Note for:: 11/27/17 Subjective:: Patient is seen on rounds. She is resting in bed. She has a congested cough and some mild wheezing. She denies dyspnea or chest pain at rest. She denies any nausea, vomiting or abdominal pain. She denies any fever chills overnight. She continues to have pain in the right great toe. Foot is presently covered with dry sterile dressing. Remaining review of systems are negative. Reason For Visit: GUDELIA DM PNEUMONIA Physical Exam Vital Signs: Temp Pulse Resp BP Pulse Ox 99.0 F 86 21 H 122/45 L 97 11/27/17 07:40 11/26/17 10:02 11/27/17 09:01 11/27/17 09:01 11/27/17 09:01 General appearance: PRESENT: no acute distress, morbidly obese, well-developed, well-nourished Head exam: PRESENT: atraumatic, normocephalic Eye exam: PRESENT: conjunctiva pink, EOMI, PERRLA. ABSENT: scleral icterus Ear exam: PRESENT: normal external ear exam Mouth exam: PRESENT: moist, tongue midline Neck exam: ABSENT: carotid bruit, JVD, lymphadenopathy, thyromegaly Respiratory exam: PRESENT: clear to auscultation emperatriz, symmetrical. ABSENT: rales, rhonchi, wheezes Cardiovascular exam: PRESENT: RRR, +S1, +S2 Pulses: PRESENT: normal carotid pulses, normal radial pulses Vascular exam: PRESENT: normal capillary refill GI/Abdominal exam: PRESENT: hypoactive bowel sounds, soft Rectal exam: PRESENT: deferred Extremities exam: PRESENT: full ROM - Right foot wrapped in kerlix with bloody drainage visible over great toe from prior debridement, +1 edema, other - Right foot wrapped Musculoskeletal exam: PRESENT: full ROM, tenderness - right foot, other Neurological exam: PRESENT: alert, oriented to person, oriented to place Psychiatric exam: PRESENT: other Skin exam: PRESENT: erythema, warm, other Results Laboratory Results: 11/27/17 04:52 11/27/17 04:52 11/27/17 11/27/17 04:52 04:52 WBC 7.1 RBC 3.24 L Hgb 10.2 L Hct 30.3 L MCV 93 MCH 31.5 MCHC 33.7 RDW 14.1 H Plt Count 151 Seg Neutrophils % 59.1 Lymphocytes % 25.3 Monocytes % 13.9 H Eosinophils % 0.9 Basophils % 0.8 Absolute Neutrophils 4.2 Absolute Lymphocytes 1.8 Absolute Monocytes 1.0 Absolute Eosinophils 0.1 Absolute Basophils 0.1 Sodium 141.4 Potassium 3.9 Chloride 98 Carbon Dioxide 33 H Anion Gap 10 BUN 60 H Creatinine 1.95 H Est GFR ( Amer) 31 L Est GFR (Non-Af Amer) 26 L Glucose 111 H Calcium 9.4 Magnesium 1.8 11/26/17 13:48 NT-Pro-B Natriuret Pep 1440 H Impressions: Chest X-Ray 11/25/17 21:27 IMPRESSION: Stable radiographic appearance of the chest demonstrating cardiomegaly and mild central vascular congestion. Toe X-Ray 11/25/17 21:39 IMPRESSION: Soft tissue irregularity of the great toe without definite periosteal reaction to suggest osteomyelitis. This is seen in the setting of severe osteopenia and a healed fracture deformity of the 5th metatarsal. Assessment & Plan - Diagnosis (1) Sepsis Qualifiers: Sepsis type: sepsis due to unspecified organism Qualified Code(s): A41.9 - Sepsis, unspecified organism Is this a current diagnosis for this admission?: Yes Plan: Resolved with IV fluids and IV antibiotics. Blood cultures negative at this point. Urine culture growing ESBL antibiotic switched to Invanz, and vancomycin. Patient is positive for influenza A (2) ESBL (extended spectrum beta-lactamase) producing bacteria infection Is this a current diagnosis for this admission?: Yes Plan: Switched to IV invanz. Will place PICC if blood cultures remain negative (3) Influenza, pneumonia Is this a current diagnosis for this admission?: Yes Plan: Patient is on Tamiflu, invanz and vancomycin (4) Obstructive sleep apnea Is this a current diagnosis for this admission?: Yes Plan: BIPAP at HS and prn (5) Acute encephalopathy Is this a current diagnosis for this admission?: Yes Plan: Resolved with antibiotics and IV hydration (6) Acute kidney injury superimposed on chronic kidney disease Is this a current diagnosis for this admission?: Yes Plan: Remains slightly dehydrated. Lasix changed to daily from bid for now (7) Anemia in chronic kidney disease (CKD) Qualifiers: Chronic kidney disease stage: stage 4 (severe) Qualified Code(s): N18.4 - Chronic kidney disease, stage 4 (severe); D63.1 - Anemia in chronic kidney disease; D63.1 - Anemia in chronic kidney disease Is this a current diagnosis for this admission?: Yes Plan: Stable (8) CAD (coronary artery disease) Qualifiers: Coronary Disease-Associated Artery/Lesion type: cheesh-na artery [place] vs. 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 Will place only on sliding scale insulin until improves (11) History of TIA (transient ischemic attack) and stroke Is this a current diagnosis for this admission?: Yes (12) Morbid obesity with BMI of 45.0-49.9, adult Is this a current diagnosis for this admission?: Yes Plan: Counseled (13) Debility Is this a current diagnosis for this admission?: Yes Plan: Patient states she has been bed bound for the last 2 years (14) Depression Qualifiers: Depression Type: unspecified Qualified Code(s): F32.9 - Major depressive disorder, single episode, unspecified Is this a current diagnosis for this admission?: Yes Plan: Continue home medications - Time Time Spent with patient: 25-34 minutes Medications reviewed and adjusted accordingly: Yes Anticipated discharge: SNF
[2017-11-27] MEDS: CETIRIZINE 10 MG TABLET PO SCH (16:24)
--- NOTE | 2017-11-27 17:01 | Physician Advisory Note ---
Physician Advisor ProgressNote .: Pursuant to the plan for [facility], I have reviewed the medical record for this patient. Physician Advisor Statement: Very nice documentation of obesity (BMI 49.6), Anemia of CKD, CKD stage 3-4, chr hypercapneic resp failure (also is hypoxemic type - uses 2L O2 baseline per note). Please consider documenting, if you agree: 1. "Sepsis, present on admission, due to ____ [UTI? PNA? ...], evidenced by ___ ____ [fever, tachypnea up to 34, tachycardia, acute metabolic encephalopathy due to sepsis, ...] - any evidence of other organ dysfunction due to sepsis? 2. "Influenza PNA, evidenced by , despite negative CXR because [intravascular volume depletion? Early in course? ] -Evidence: (+)fever, cough, sputum, tachypnea>24, rales, rhonchi, tachycardia, ... - any dyspnea? pleuritic CP? Other? - Does pt need another CXR to confirm dx of PNA? If not, just state why not / why you feel CXR was false negative, please. - Payers are targeting PNA dx.s to deny, especially if no obvious infiltrate on CXR, leukocytosis.... Also: the H&P & ED notes state "ESRD" in autopopulated PMH, but "CKD 3-4" in the attending/ED provider inputted notes. Please clarify since both dx.s are being stated - auditors will say it's a discrepancy in documentation. Appropriate for Inpatient status. Thanks! CK
[2017-11-27] MEDS: FENOFIBRATE NANOCRYSTALLIZED 145 MG TABLET PO SCH (22:23)
[2017-11-27] MEDS: ATORVASTATIN CALCIUM 20 MG TABLET PO SCH (22:23)
[2017-11-28] MEDS: HEPARIN SOD (PORCINE) 5,000 UNIT/ML 1 ML SYRINGE SUBCUT SCH ×3 (06:26→22:40)
[2017-11-28] MEDS: LEVOTHYROXINE SODIUM 0.088 MG TABLET PO SCH (06:26)
[2017-11-28] MEDS: PREGABALIN 75 MG CAPSULE PO SCH ×3 (06:26→22:40)
[2017-11-28] MEDS: LANSOPRAZOLE 15 MG TAB.RAP.DR PO SCH (06:26)
[2017-11-28 06:49] LABS: ABSOLUTE EOSINOPHILS # (AUTO) 0.1 10^3/uL (0.0-0.6); ABSOLUTE LYMPHOCYTES (AUTO) 2.1 10^3/uL (0.5-4.7); ABSOLUTE MONOCYTES (AUTO) 0.8 10^3/uL (0.1-1.4); ABSOLUTE NEUT (AUTO) 2.4 10^3/uL (1.7-8.2); BASOPHILS % (AUTO) 0.7 % (0-2); EOSINOPHILS % (AUTO) 2.4 % (0-6); HEMATOCRIT 29.7 % (36.0-47.0); HEMOGLOBIN 9.8 g/dL (12.0-15.5); LYMPHOCYTES % (AUTO) 38.2 % (13-45); MEAN CORPUSCULAR VOLUME 94 fl (80-97); MONOCYTES % (AUTO) 14.1 % (3-13); PLATELET COUNT 156 10^3/uL (150-450); RED BLOOD COUNT 3.17 10^6/uL (3.72-5.28); RED CELL DISTRIBUTION WIDTH 13.9 % (11.5-14.0); SEGMENTED NEUTROPHILS % (AUTO) 44.6 % (42-78); TOTAL CELLS COUNTED % (AUTO) 100 %; WHITE BLOOD COUNT 5.4 10^3/uL (4.0-10.5)
[2017-11-28 07:04] LABS: ANION GAP 11 (5-19); BLOOD UREA NITROGEN 62 mg/dL (7-20); CALCIUM 9.5 mg/dL (8.4-10.2); CARBON DIOXIDE 33 mmol/L (22-30); CHLORIDE 99 mmol/L (98-107); GLUCOSE 110 mg/dL (75-110); POTASSIUM 3.8 mmol/L (3.6-5.0); SODIUM 142.5 mmol/L (137-145)
[2017-11-28] MEDS: INSULIN GLARGINE,HUM.REC.ANLOG 300 UNIT/3 ML INSULN.PEN SUBCUT SCH (09:22)
[2017-11-28] MEDS: INSULIN LISPRO 100 UNIT/ML 3 ML VIAL SUBCUT SCH ×3 (09:22→16:34)
[2017-11-28] MEDS: ERTAPENEM SODIUM 1 GM in NORMAL SALINE 50 ML IV SCH (10:26)
[2017-11-28] MEDS: FLUTICASONE NASAL SPRAY 50 MCG/SPRY 120 SPRAY/16 GM NASL SCH ×2 (10:27→22:41)
[2017-11-28] MEDS: CARVEDILOL 12.5 MG TABLET PO SCH ×2 (10:27→22:40)
[2017-11-28] MEDS: CETIRIZINE 10 MG TABLET PO SCH (10:30)
[2017-11-28] MEDS: FERROUS SULFATE 325 MG TABLET PO SCH ×2 (10:30→17:11)
[2017-11-28] MEDS: GUAIFENESIN 600 MG TABLET.SA PO SCH ×2 (10:31→22:40)
[2017-11-28] MEDS: ASPIRIN 81 MG TABLET, CHEWABLE PO SCH (10:31)
[2017-11-28] MEDS: FUROSEMIDE 80 MG TABLET PO SCH (10:31)
[2017-11-28] MEDS: LEVOFLOXACIN 250 MG/D5W RTU 250 MG/50 ML RTUPB IV SCH (11:10)
[2017-11-28] MEDS: OSELTAMIVIR PHOSPHATE 75 MG CAPSULE PO SCH ×2 (11:11→22:41)
[2017-11-28] MEDS ORDERED: METOLAZONE 2.5 MG TABLET PO ONE (19:00)
[2017-11-28] MEDS: LEVALBUTEROL HCL NEB 1.25 MG/3 ML AMPUL NEB SCH ×2 (19:50→23:33)
[2017-11-28] MEDS: ACETYLCYSTEINE 20% SOLN 800 MG/4 ML VIAL.NEB NEB SCH (19:50)
[2017-11-28] MEDS: FENOFIBRATE NANOCRYSTALLIZED 145 MG TABLET PO SCH (22:40)
[2017-11-28] MEDS: ATORVASTATIN CALCIUM 20 MG TABLET PO SCH (22:40)
[2017-11-29] MEDS: LEVALBUTEROL HCL NEB 1.25 MG/3 ML AMPUL NEB SCH ×6 (04:05→23:58)
[2017-11-29] MEDS: LEVOTHYROXINE SODIUM 0.088 MG TABLET PO SCH (06:10)
[2017-11-29] MEDS: LANSOPRAZOLE 15 MG TAB.RAP.DR PO SCH (06:10)
[2017-11-29] MEDS: PREGABALIN 75 MG CAPSULE PO SCH ×3 (06:11→21:40)
[2017-11-29] MEDS: HEPARIN SOD (PORCINE) 5,000 UNIT/ML 1 ML SYRINGE SUBCUT SCH ×3 (06:11→21:45)
[2017-11-29 06:22] LABS: ABSOLUTE EOSINOPHILS # (AUTO) 0.2 10^3/uL (0.0-0.6); ABSOLUTE LYMPHOCYTES (AUTO) 2.2 10^3/uL (0.5-4.7); ABSOLUTE MONOCYTES (AUTO) 0.7 10^3/uL (0.1-1.4); ABSOLUTE NEUT (AUTO) 2.4 10^3/uL (1.7-8.2); BASOPHILS % (AUTO) 0.6 % (0-2); EOSINOPHILS % (AUTO) 3.1 % (0-6); HEMATOCRIT 29.9 % (36.0-47.0); LYMPHOCYTES % (AUTO) 39.9 % (13-45); MEAN CORPUSCULAR HEMOGLOBIN 31.2 pg (27.0-33.4); MEAN CORPUSCULAR HGB CONC 33.4 g/dL (32.0-36.0); MEAN CORPUSCULAR VOLUME 93 fl (80-97); MONOCYTES % (AUTO) 12.9 % (3-13); PLATELET COUNT 159 10^3/uL (150-450); RED CELL DISTRIBUTION WIDTH 13.8 % (11.5-14.0); SEGMENTED NEUTROPHILS % (AUTO) 43.5 % (42-78); TOTAL CELLS COUNTED % (AUTO) 100 %; WHITE BLOOD COUNT 5.6 10^3/uL (4.0-10.5)
[2017-11-29 06:39] LABS: ANION GAP 9 (5-19); BLOOD UREA NITROGEN 68 mg/dL (7-20); CALCIUM 9.7 mg/dL (8.4-10.2); CARBON DIOXIDE 35 mmol/L (22-30); CHLORIDE 98 mmol/L (98-107); GLUCOSE 163 mg/dL (75-110); SODIUM 142.2 mmol/L (137-145)
[2017-11-29] MEDS: ACETYLCYSTEINE 20% SOLN 800 MG/4 ML VIAL.NEB NEB SCH ×2 (08:31→19:44)
[2017-11-29] MEDS: INSULIN GLARGINE,HUM.REC.ANLOG 300 UNIT/3 ML INSULN.PEN SUBCUT SCH (09:03)
[2017-11-29] MEDS: INSULIN LISPRO 100 UNIT/ML 3 ML VIAL SUBCUT SCH ×3 (09:03→16:48)
[2017-11-29] MEDS: FLUTICASONE NASAL SPRAY 50 MCG/SPRY 120 SPRAY/16 GM NASL SCH ×2 (09:12→21:40)
[2017-11-29] MEDS: ERTAPENEM SODIUM 1 GM in NORMAL SALINE 50 ML IV SCH (09:12)
[2017-11-29] MEDS: FUROSEMIDE 80 MG TABLET PO SCH (09:16)
[2017-11-29] MEDS: FERROUS SULFATE 325 MG TABLET PO SCH ×2 (09:16→17:53)
[2017-11-29] MEDS: OSELTAMIVIR PHOSPHATE 75 MG CAPSULE PO SCH ×2 (09:16→22:14)
[2017-11-29] MEDS: CARVEDILOL 12.5 MG TABLET PO SCH ×2 (09:17→21:39)
[2017-11-29] MEDS: CETIRIZINE 10 MG TABLET PO SCH (09:17)
[2017-11-29] MEDS: ASPIRIN 81 MG TABLET, CHEWABLE PO SCH (09:17)
[2017-11-29] MEDS: METOLAZONE 2.5 MG TABLET PO SCH (09:18)
[2017-11-29] MEDS: GUAIFENESIN 600 MG TABLET.SA PO SCH ×2 (09:18→21:39)
--- NOTE | 2017-11-29 10:27 | PDOC PROGRESS REPORT ---
Subjective Progress Note for:: 11/28/17 Subjective:: Patient is lying in bed in no distress. Patient reports feeling congested. Patient cough but nothing comes up. Patient states she feels like she is suffocating however she is satting 99% although on 4 L. Reason For Visit: GUDELIA DM PNEUMONIA Physical Exam Vital Signs: Temp Pulse Resp BP Pulse Ox 98.5 F 65 18 128/40 H 99 11/28/17 20:00 11/28/17 20:00 11/28/17 20:00 11/28/17 20:00 11/28/17 20:00 Intake & Output 11/27/17 11/28/17 11/29/17 06:59 06:59 06:59 Intake Total 206 681 Balance 206 681 Weight 136 kg General appearance: PRESENT: mild distress, morbidly obese Head exam: PRESENT: normocephalic Eye exam: PRESENT: EOMI. ABSENT: scleral icterus Ear exam: PRESENT: normal external ear exam Mouth exam: PRESENT: moist Neck exam: ABSENT: carotid bruit, JVD, lymphadenopathy, thyromegaly Respiratory exam: PRESENT: rhonchi, wheezes. ABSENT: rales, unlabored Cardiovascular exam: PRESENT: RRR. ABSENT: diastolic murmur, rubs, systolic murmur GI/Abdominal exam: PRESENT: normal bowel sounds, soft. ABSENT: distended, guarding, mass, organolmegaly, rebound, tenderness Rectal exam: PRESENT: deferred Extremities exam: PRESENT: pedal edema, tenderness. ABSENT: calf tenderness, clubbing Musculoskeletal exam: PRESENT: tenderness, other - Bleeding dressing on right foot. Neurological exam: PRESENT: alert, awake, oriented to person, oriented to place , oriented to time, oriented to situation, CN II-XII grossly intact. ABSENT: motor sensory deficit Psychiatric exam: PRESENT: flat affect. ABSENT: homicidal ideation, suicidal ideation Skin exam: PRESENT: dry, intact, warm. ABSENT: cyanosis, rash Results Laboratory Results: 11/28/17 06:13 11/28/17 06:13 11/28/17 11/28/17 06:13 06:13 WBC 5.4 RBC 3.17 L Hgb 9.8 L Hct 29.7 L MCV 94 MCH 31.0 MCHC 33.0 RDW 13.9 Plt Count 156 Seg Neutrophils % 44.6 Lymphocytes % 38.2 Monocytes % 14.1 H Eosinophils % 2.4 Basophils % 0.7 Absolute Neutrophils 2.4 Absolute Lymphocytes 2.1 Absolute Monocytes 0.8 Absolute Eosinophils 0.1 Absolute Basophils 0.0 Sodium 142.5 Potassium 3.8 Chloride 99 Carbon Dioxide 33 H Anion Gap 11 BUN 62 H Creatinine 1.97 H Est GFR ( Amer) 31 L Est GFR (Non-Af Amer) 25 L Glucose 110 Calcium 9.5 11/26/17 13:48 NT-Pro-B Natriuret Pep 1440 H Impressions: Chest X-Ray 11/25/17 21:27 IMPRESSION: Stable radiographic appearance of the chest demonstrating cardiomegaly and mild central vascular congestion. Toe X-Ray 11/25/17 21:39 IMPRESSION: Soft tissue irregularity of the great toe without definite periosteal reaction to suggest osteomyelitis. This is seen in the setting of severe osteopenia and a healed fracture deformity of the 5th metatarsal. Assessment & Plan - Diagnosis (1) Sepsis Qualifiers: Sepsis type: Escherichia coli Qualified Code(s): A41.51 - Sepsis due to Escherichia coli [E. coli] Is this a current diagnosis for this admission?: Yes Plan: Patient presented with fever of 100, tachypnea at 34 breaths per minute, acute on chronic renal failure and altered mental status. Patient found to have ESBL UTI and influenza. Patient started on Tamiflu and appropriate antibiotics. (2) ESBL (extended spectrum beta-lactamase) producing bacteria infection Is this a current diagnosis for this admission?: Yes Plan: She currently on ertapenem. (3) Influenza, pneumonia Is this a current diagnosis for this admission?: Yes Plan: Patient currently on Tamiflu along with vancomycin. (4) Acute encephalopathy Is this a current diagnosis for this admission?: Yes Plan: Secondary to acute dehydration and infections. This is now resolved as patient is receiving adequate treatment. (5) Granuloma pyogenicum Is this a current diagnosis for this admission?: Yes Plan: Evaluated by surgery who recommended silver nitrate as needed. (6) Morbid obesity with BMI of 45.0-49.9, adult Is this a current diagnosis for this admission?: Yes Plan: Patient will benefit from dietary counseling as patient is bedbound and can only lose weight by limiting what she consumes. (7) Acute kidney injury superimposed on chronic kidney disease Is this a current diagnosis for this admission?: Yes Plan: Patient appears to have a acute on chronic underlying CKD stage IV. Appears to be improving. Patient currently on Lasix will add metolazone. (8) Anemia in chronic kidney disease (CKD) Qualifiers: Chronic kidney disease stage: stage 4 (severe) Qualified Code(s): N18.4 - Chronic kidney disease, stage 4 (severe); D63.1 - Anemia in chronic kidney disease; D63.1 - Anemia in chronic kidney disease Is this a current diagnosis for this admission?: Yes Plan: CKD stage IV. Hemoglobin appears stable. Continue to monitor. (9) Debility Is this a current diagnosis for this admission?: Yes Plan: Patient is currently bed bound. (10) Depression Qualifiers: Depression Type: unspecified Qualified Code(s): F32.9 - Major depressive disorder, single episode, unspecified Is this a current diagnosis for this admission?: Yes Plan: Continue home medications. (11) Diabetes mellitus, type II Qualifiers: Diabetes mellitus complication detail: with nephropathy Diabetes mellitus shelter insulin use: unspecified shelter insulin use status Is this a current diagnosis for this admission?: Yes Plan: Continue SSI and monitor. (12) History of TIA (transient ischemic attack) and stroke Is this a current diagnosis for this admission?: Yes Plan: Continue supportive care. - Time Time Spent with patient: Less than 15 minutes Anticipated discharge: SNF Within: Other - Inpatient Certification Medical Necessity: Need for IV Antibiotics
--- NOTE | 2017-11-29 14:57 | PDOC PROGRESS REPORT ---
Subjective Progress Note for:: 11/29/17 Subjective:: Patient states she is doing a little better. She is asking for cream for her face. Patient states that she still feels as if she is suffocating when she attempts to take a deep breathe. Patient is eating a little. Reason For Visit: GUDELIA DM PNEUMONIA Physical Exam Vital Signs: Temp Pulse Resp BP Pulse Ox 99.1 F 65 18 134/37 H 98 11/29/17 11:33 11/29/17 11:55 11/29/17 11:55 11/29/17 11:33 11/29/17 11:33 Intake & Output 11/28/17 11/29/17 11/30/17 06:59 06:59 06:59 Intake Total 206 681 Balance 206 681 Weight 136 kg 138.9 kg General appearance: PRESENT: no acute distress, morbidly obese Head exam: PRESENT: normocephalic Eye exam: PRESENT: EOMI. ABSENT: scleral icterus Ear exam: PRESENT: normal external ear exam Mouth exam: PRESENT: moist Neck exam: ABSENT: carotid bruit, JVD, lymphadenopathy, thyromegaly Respiratory exam: PRESENT: clear to auscultation emperatriz. ABSENT: rales, rhonchi, wheezes Cardiovascular exam: PRESENT: RRR. ABSENT: diastolic murmur, rubs, systolic murmur Pulses: PRESENT: normal dorsalis pedis pul Vascular exam: PRESENT: normal capillary refill GI/Abdominal exam: PRESENT: normal bowel sounds, soft. ABSENT: distended, guarding, mass, organolmegaly, rebound, tenderness Rectal exam: PRESENT: deferred Extremities exam: PRESENT: full ROM. ABSENT: calf tenderness, clubbing, pedal edema Musculoskeletal exam: PRESENT: tenderness, other - dressing on right foot Neurological exam: PRESENT: alert, awake, oriented to person, oriented to place , oriented to time, oriented to situation, CN II-XII grossly intact. ABSENT: motor sensory deficit Psychiatric exam: PRESENT: appropriate affect, normal mood. ABSENT: homicidal ideation, suicidal ideation Skin exam: PRESENT: dry, intact, warm. ABSENT: cyanosis, rash Results Laboratory Results: 11/29/17 06:04 11/29/17 06:04 11/29/17 11/29/17 06:04 06:04 WBC 5.6 RBC 3.20 L Hgb 10.0 L Hct 29.9 L MCV 93 MCH 31.2 MCHC 33.4 RDW 13.8 Plt Count 159 Seg Neutrophils % 43.5 Lymphocytes % 39.9 Monocytes % 12.9 Eosinophils % 3.1 Basophils % 0.6 Absolute Neutrophils 2.4 Absolute Lymphocytes 2.2 Absolute Monocytes 0.7 Absolute Eosinophils 0.2 Absolute Basophils 0.0 Sodium 142.2 Potassium 4.0 Chloride 98 Carbon Dioxide 35 H Anion Gap 9 BUN 68 H Creatinine 1.93 H Est GFR ( Amer) 31 L Est GFR (Non-Af Amer) 26 L Glucose 163 H Calcium 9.7 11/26/17 13:48 NT-Pro-B Natriuret Pep 1440 H Impressions: Chest X-Ray 11/25/17 21:27 IMPRESSION: Stable radiographic appearance of the chest demonstrating cardiomegaly and mild central vascular congestion. Toe X-Ray 11/25/17 21:39 IMPRESSION: Soft tissue irregularity of the great toe without definite periosteal reaction to suggest osteomyelitis. This is seen in the setting of severe osteopenia and a healed fracture deformity of the 5th metatarsal. Assessment & Plan - Diagnosis (1) Sepsis Qualifiers: Sepsis type: Escherichia coli Qualified Code(s): A41.51 - Sepsis due to Escherichia coli [E. coli] Is this a current diagnosis for this admission?: Yes Plan: Patient presented with fever of 100, tachypnea at 34 breaths per minute, acute on chronic renal failure and altered mental status. Patient found to have ESBL UTI and influenza. Patient started on Tamiflu and appropriate antibiotics. Resolved. Continue current management. (2) ESBL (extended spectrum beta-lactamase) producing bacteria infection Is this a current diagnosis for this admission?: Yes Plan: Continue ertapenem. (3) Influenza, pneumonia Is this a current diagnosis for this admission?: Yes Plan: Continue Tamiflu and vancomycin. (4) Acute encephalopathy Is this a current diagnosis for this admission?: Yes Plan: Secondary to acute dehydration and infections. Resolved. Continue current (5) Granuloma pyogenicum Is this a current diagnosis for this admission?: Yes Plan: Evaluated by surgery who recommended silver nitrate as needed. Patient may need more silver nitrate as the wound is still bleeding. (6) Morbid obesity with BMI of 45.0-49.9, adult Is this a current diagnosis for this admission?: Yes Plan: Patient will benefit from dietary counseling as patient is bedbound and can only lose weight by limiting what she consumes. (7) Acute kidney injury superimposed on chronic kidney disease Is this a current diagnosis for this admission?: Yes Plan: Patient appears to have a acute on chronic underlying CKD stage IV. Patient currently on Lasix will add metolazone. Stable. Continue to monitor. (8) Anemia in chronic kidney disease (CKD) Qualifiers: Chronic kidney disease stage: stage 4 (severe) Qualified Code(s): N18.4 - Chronic kidney disease, stage 4 (severe); D63.1 - Anemia in chronic kidney disease; D63.1 - Anemia in chronic kidney disease Is this a current diagnosis for this admission?: Yes Plan: CKD stage IV. Hemoglobin appears stable. Continue to monitor. (9) Debility Is this a current diagnosis for this admission?: Yes Plan: Patient is currently bed bound. (10) Depression Qualifiers: Depression Type: unspecified Qualified Code(s): F32.9 - Major depressive disorder, single episode, unspecified Is this a current diagnosis for this admission?: Yes Plan: Continue home medications. (11) Diabetes mellitus, type II Qualifiers: Diabetes mellitus complication detail: with nephropathy Diabetes mellitus [facility] insulin use: unspecified [facility] insulin use status Is this a current diagnosis for this admission?: Yes Plan: Continue SSI and monitor. (12) History of TIA (transient ischemic attack) and stroke Is this a current diagnosis for this admission?: Yes Plan: Continue supportive care. (13) Dry skin dermatitis Is this a current diagnosis for this admission?: Yes Plan: Patient reports psoriasis. She currently has some patches on her face. Will order some steroid cream to use sparingly. - Time Time Spent with patient: Less than 15 minutes Anticipated discharge: SNF Within: Other - Inpatient Certification Medical Necessity: Need for IV Antibiotics
[2017-11-29] MEDS: LEVOFLOXACIN 250 MG TABLET PO SCH (16:48)
[2017-11-29] MEDS: ATORVASTATIN CALCIUM 20 MG TABLET PO SCH (21:39)
[2017-11-29] MEDS: FENOFIBRATE NANOCRYSTALLIZED 145 MG TABLET PO SCH (21:40)
[2017-11-29] MEDS: CLOBETASOL PROPIONATE 0.05% CREAM 15 GM TP PRN (22:14)
[2017-11-30] MEDS: LEVALBUTEROL HCL NEB 1.25 MG/3 ML AMPUL NEB SCH ×6 (04:22→23:52)
[2017-11-30] MEDS: HEPARIN SOD (PORCINE) 5,000 UNIT/ML 1 ML SYRINGE SUBCUT SCH ×3 (05:23→21:18)
[2017-11-30] MEDS: LANSOPRAZOLE 15 MG TAB.RAP.DR PO SCH (05:23)
[2017-11-30] MEDS: LEVOTHYROXINE SODIUM 0.088 MG TABLET PO SCH (05:23)
[2017-11-30] MEDS: PREGABALIN 75 MG CAPSULE PO SCH ×3 (05:23→21:07)
[2017-11-30] MEDS: INSULIN LISPRO 100 UNIT/ML 3 ML VIAL SUBCUT SCH ×3 (07:51→18:14)
[2017-11-30] MEDS: INSULIN GLARGINE,HUM.REC.ANLOG 300 UNIT/3 ML INSULN.PEN SUBCUT SCH (07:51)
[2017-11-30] MEDS: ACETYLCYSTEINE 20% SOLN 800 MG/4 ML VIAL.NEB NEB SCH ×2 (08:52→19:43)
[2017-11-30] MEDS: CARVEDILOL 12.5 MG TABLET PO SCH ×2 (09:32→21:08)
[2017-11-30] MEDS: ERTAPENEM SODIUM 1 GM in NORMAL SALINE 50 ML IV SCH (09:32)
[2017-11-30] MEDS: ASPIRIN 81 MG TABLET, CHEWABLE PO SCH (09:32)
[2017-11-30] MEDS: CETIRIZINE 10 MG TABLET PO SCH (09:32)
[2017-11-30] MEDS: FUROSEMIDE 80 MG TABLET PO SCH (09:33)
[2017-11-30] MEDS: FLUTICASONE NASAL SPRAY 50 MCG/SPRY 120 SPRAY/16 GM NASL SCH ×2 (09:33→21:07)
[2017-11-30] MEDS: FERROUS SULFATE 325 MG TABLET PO SCH ×2 (09:33→18:15)
[2017-11-30] MEDS: GUAIFENESIN 600 MG TABLET.SA PO SCH ×2 (09:33→21:06)
[2017-11-30] MEDS: METOLAZONE 2.5 MG TABLET PO SCH (09:33)
[2017-11-30] MEDS: OSELTAMIVIR PHOSPHATE 75 MG CAPSULE PO SCH ×2 (10:54→21:07)
[2017-11-30 11:32] LABS: ANION GAP 9 (5-19); BLOOD UREA NITROGEN 67 mg/dL (7-20); CALCIUM 10.3 mg/dL (8.4-10.2); CARBON DIOXIDE 35 mmol/L (22-30); CHLORIDE 98 mmol/L (98-107); GLUCOSE 164 mg/dL (75-110); SODIUM 141.9 mmol/L (137-145)
[2017-11-30] MEDS: LEVOFLOXACIN 250 MG TABLET PO SCH (15:23)
[2017-11-30] MEDS ORDERED: DEXTROSE 40% GEL 15 GM TUBE PO PRN ×2 (18:14)
[2017-11-30] MEDS ORDERED: GLUCAGON,HUMAN RECOMB 1 MG INJ IM PRN (18:14)
[2017-11-30] MEDS ORDERED: DEXTROSE 50%-WATER 25 GM/50 ML DISP.SYRIN IV PRN ×2 (18:14)
[2017-11-30] MEDS: INSULIN LISPRO 100 UNIT/ML 3 ML VIAL SUBCUT PRN ×2 (19:15→21:09)
[2017-11-30] MEDS: TRAZODONE HCL 50 MG TABLET PO SCH (21:06)
[2017-11-30] MEDS: ATORVASTATIN CALCIUM 20 MG TABLET PO SCH (21:07)
[2017-11-30] MEDS: FENOFIBRATE NANOCRYSTALLIZED 145 MG TABLET PO SCH (21:07)
[2017-11-30] MEDS: METHYLPREDNISOLONE INJ 40 MG/1 ML SDV IV SCH (21:08)
[2017-12-01] MEDS: LEVALBUTEROL HCL NEB 1.25 MG/3 ML AMPUL NEB SCH ×6 (04:27→23:50)
[2017-12-01] MEDS: HEPARIN SOD (PORCINE) 5,000 UNIT/ML 1 ML SYRINGE SUBCUT SCH ×3 (05:32→23:02)
[2017-12-01] MEDS: LEVOTHYROXINE SODIUM 0.088 MG TABLET PO SCH (05:32)
[2017-12-01] MEDS: LANSOPRAZOLE 15 MG TAB.RAP.DR PO SCH (05:32)
[2017-12-01] MEDS: PREGABALIN 75 MG CAPSULE PO SCH ×3 (05:33→23:05)
[2017-12-01] MEDS: INSULIN LISPRO 100 UNIT/ML 3 ML VIAL SUBCUT PRN ×4 (06:40→23:03)
[2017-12-01] MEDS: ACETAMINOPHEN 325 MG TABLET PO PRN (06:44)
[2017-12-01] MEDS: ACETYLCYSTEINE 20% SOLN 800 MG/4 ML VIAL.NEB NEB SCH (08:20)
[2017-12-01] MEDS: METHYLPREDNISOLONE INJ 40 MG/1 ML SDV IV SCH ×2 (09:19→23:07)
[2017-12-01] MEDS: METOLAZONE 2.5 MG TABLET PO SCH (09:20)
[2017-12-01] MEDS: OSELTAMIVIR PHOSPHATE 75 MG CAPSULE PO SCH ×2 (09:20→23:10)
[2017-12-01] MEDS: FERROUS SULFATE 325 MG TABLET PO SCH ×2 (09:21→18:06)
[2017-12-01] MEDS: CETIRIZINE 10 MG TABLET PO SCH (09:21)
[2017-12-01] MEDS: CARVEDILOL 12.5 MG TABLET PO SCH ×2 (09:22→23:05)
[2017-12-01] MEDS: GUAIFENESIN 600 MG TABLET.SA PO SCH ×2 (09:22→23:04)
[2017-12-01] MEDS: FUROSEMIDE 80 MG TABLET PO SCH (09:22)
[2017-12-01] MEDS: ERTAPENEM SODIUM 1 GM in NORMAL SALINE 50 ML IV SCH (09:23)
[2017-12-01] MEDS: ASPIRIN 81 MG TABLET, CHEWABLE PO SCH (09:23)
[2017-12-01] MEDS: FLUTICASONE NASAL SPRAY 50 MCG/SPRY 120 SPRAY/16 GM NASL SCH ×2 (09:25→23:06)
[2017-12-01] MEDS ORDERED: LACTOBACILLUS ACIDOPHILUS 250 MG TAB PO ONE (09:30)
[2017-12-01] MEDS: LEVOFLOXACIN 250 MG TABLET PO SCH (14:36)
[2017-12-01] MEDS ORDERED: INSULIN REG, HUMAN 100 UNIT/ML 3 ML VIAL (PYX) ONE (18:50)
[2017-12-01] MEDS ORDERED: INSULIN REG, HUMAN 100 UNIT/ML 3 ML VIAL (PYX) SUBCUT ONE (19:00)
[2017-12-01] MEDS: BUDESONIDE NEB 0.5 MG/2 ML AMPUL NEB SCH (20:43)
[2017-12-01] MEDS ORDERED: INSULIN GLARGINE,HUM.REC.ANLOG 300 UNIT/3 ML INSULN.PEN SUBCUT SCH (22:00)
[2017-12-01] MEDS: INSULIN GLARGINE,HUM.REC.ANLOG 1,000 UNIT/10 ML UNIT SUBCUT SCH (23:03)
[2017-12-01] MEDS: ATORVASTATIN CALCIUM 20 MG TABLET PO SCH (23:05)
[2017-12-01] MEDS: FENOFIBRATE NANOCRYSTALLIZED 145 MG TABLET PO SCH (23:05)
[2017-12-01] MEDS: TRAZODONE HCL 50 MG TABLET PO SCH (23:10)
[2017-12-02] MEDS: LEVALBUTEROL HCL NEB 1.25 MG/3 ML AMPUL NEB SCH ×5 (04:22→19:46)
[2017-12-02] MEDS: LANSOPRAZOLE 15 MG TAB.RAP.DR PO SCH (06:06)
[2017-12-02] MEDS: PREGABALIN 75 MG CAPSULE PO SCH ×3 (06:06→22:17)
[2017-12-02] MEDS: LEVOTHYROXINE SODIUM 0.088 MG TABLET PO SCH (06:07)
[2017-12-02] MEDS: HEPARIN SOD (PORCINE) 5,000 UNIT/ML 1 ML SYRINGE SUBCUT SCH ×3 (06:07→22:16)
[2017-12-02] MEDS: INSULIN LISPRO 100 UNIT/ML 3 ML VIAL SUBCUT PRN ×4 (07:11→22:16)
[2017-12-02] MEDS: BUDESONIDE NEB 0.5 MG/2 ML AMPUL NEB SCH ×2 (08:07→19:46)
[2017-12-02] MEDS ORDERED: METHYLPREDNISOLONE INJ 40 MG/1 ML SDV IV SCH (10:00)
[2017-12-02] MEDS: FERROUS SULFATE 325 MG TABLET PO SCH ×2 (10:41→17:23)
[2017-12-02] MEDS: METOLAZONE 2.5 MG TABLET PO SCH (10:41)
[2017-12-02] MEDS: PREDNISONE 20 MG TABLET PO SCH (10:41)
[2017-12-02] MEDS: CETIRIZINE 10 MG TABLET PO SCH (10:41)
[2017-12-02] MEDS: GUAIFENESIN 600 MG TABLET.SA PO SCH ×2 (10:41→22:17)
[2017-12-02] MEDS: CARVEDILOL 12.5 MG TABLET PO SCH ×2 (10:41→22:17)
[2017-12-02] MEDS: ASPIRIN 81 MG TABLET, CHEWABLE PO SCH (10:41)
[2017-12-02] MEDS: FUROSEMIDE 80 MG TABLET PO SCH (10:41)
[2017-12-02] MEDS: FLUTICASONE NASAL SPRAY 50 MCG/SPRY 120 SPRAY/16 GM NASL SCH ×2 (10:42→22:18)
[2017-12-02] MEDS: INSULIN LISPRO 100 UNIT/ML 3 ML VIAL SUBCUT SCH ×2 (10:42→15:24)
[2017-12-02] MEDS: INSULIN GLARGINE,HUM.REC.ANLOG 1,000 UNIT/10 ML UNIT SUBCUT SCH ×2 (10:42→22:16)
[2017-12-02] MEDS: LEVOFLOXACIN 250 MG TABLET PO SCH (15:05)
[2017-12-02] MEDS: ACETAMINOPHEN 325 MG TABLET PO PRN (15:24)
[2017-12-02] MEDS: ATORVASTATIN CALCIUM 20 MG TABLET PO SCH (22:17)
[2017-12-02] MEDS: FENOFIBRATE NANOCRYSTALLIZED 145 MG TABLET PO SCH (22:18)
[2017-12-02] MEDS: TRAZODONE HCL 50 MG TABLET PO SCH (22:18)
[2017-12-03] MEDS: LEVALBUTEROL HCL NEB 1.25 MG/3 ML AMPUL NEB SCH ×6 (04:43→20:08)
[2017-12-03] MEDS: HEPARIN SOD (PORCINE) 5,000 UNIT/ML 1 ML SYRINGE SUBCUT SCH ×3 (05:56→21:31)
[2017-12-03] MEDS: PREGABALIN 75 MG CAPSULE PO SCH ×3 (05:56→21:33)
[2017-12-03] MEDS: LANSOPRAZOLE 15 MG TAB.RAP.DR PO SCH (05:56)
[2017-12-03] MEDS: LEVOTHYROXINE SODIUM 0.088 MG TABLET PO SCH (05:56)
[2017-12-03] MEDS: BUDESONIDE NEB 0.5 MG/2 ML AMPUL NEB SCH ×2 (08:33→20:09)
[2017-12-03] MEDS: INSULIN LISPRO 100 UNIT/ML 3 ML VIAL SUBCUT PRN ×3 (08:45→17:11)
[2017-12-03] MEDS: INSULIN LISPRO 100 UNIT/ML 3 ML VIAL SUBCUT SCH ×3 (08:45→16:02)
--- NOTE | 2017-12-03 10:06 | PDOC PROGRESS REPORT ---
Subjective Progress Note for:: 11/30/17 Subjective:: Patient states she is doing a little better. She is asking for cream for her face. Patient states that she still feels as if she is suffocating when she attempts to take a deep breathe. Patient is feeling a little better. Reason For Visit: GUDELIA DM PNEUMONIA Physical Exam Vital Signs: Temp Pulse Resp BP Pulse Ox 98.6 F 67 18 116/52 L 98 11/30/17 16:00 11/30/17 16:16 11/30/17 16:16 11/30/17 16:00 11/30/17 16:16 Intake & Output 11/29/17 11/30/17 12/01/17 06:59 06:59 06:59 Intake Total 681 1491 1550 Balance 681 1491 1550 Weight 138.9 kg 139.4 kg General appearance: PRESENT: no acute distress, obese Head exam: PRESENT: normocephalic Eye exam: PRESENT: EOMI. ABSENT: scleral icterus Ear exam: PRESENT: normal external ear exam Mouth exam: PRESENT: moist Neck exam: ABSENT: carotid bruit, JVD, lymphadenopathy, thyromegaly Respiratory exam: PRESENT: decreased breath sounds, rhonchi - scattered, unlabored. ABSENT: rales, wheezes Cardiovascular exam: PRESENT: RRR. ABSENT: diastolic murmur, rubs, systolic murmur GI/Abdominal exam: PRESENT: normal bowel sounds, soft. ABSENT: distended, guarding, mass, organolmegaly, rebound, tenderness Rectal exam: PRESENT: deferred Extremities exam: PRESENT: full ROM. ABSENT: calf tenderness, clubbing, pedal edema Musculoskeletal exam: PRESENT: other - dressing on left foot Neurological exam: PRESENT: alert, awake, oriented to person, oriented to place , oriented to time, oriented to situation, CN II-XII grossly intact. ABSENT: motor sensory deficit Psychiatric exam: PRESENT: appropriate affect, normal mood. ABSENT: homicidal ideation, suicidal ideation Skin exam: PRESENT: dry, intact, warm. ABSENT: cyanosis, rash Results Laboratory Results: 11/29/17 06:04 11/30/17 10:47 11/30/17 10:47 Sodium 141.9 Potassium 4.0 Chloride 98 Carbon Dioxide 35 H Anion Gap 9 BUN 67 H Creatinine 1.79 H Est GFR ( Amer) 34 L Est GFR (Non-Af Amer) 28 L Glucose 164 H Calcium 10.3 H Magnesium 2.0 11/26/17 13:48 NT-Pro-B Natriuret Pep 1440 H Impressions: Chest X-Ray 11/25/17 21:27 IMPRESSION: Stable radiographic appearance of the chest demonstrating cardiomegaly and mild central vascular congestion. Toe X-Ray 11/25/17 21:39 IMPRESSION: Soft tissue irregularity of the great toe without definite periosteal reaction to suggest osteomyelitis. This is seen in the setting of severe osteopenia and a healed fracture deformity of the 5th metatarsal. Assessment & Plan - Diagnosis (1) Sepsis Qualifiers: Sepsis type: Escherichia coli Qualified Code(s): A41.51 - Sepsis due to Escherichia coli [E. coli] Is this a current diagnosis for this admission?: Yes Plan: Resolved now however she presented with fever of 100, tachypnea at 34 breaths per minute, acute on chronic renal failure and altered mental status on admission. Patient found to have ESBL UTI and influenza. Continue tamiflu, Levaquin and ertapenem. Continue current management. (2) ESBL (extended spectrum beta-lactamase) producing bacteria infection Is this a current diagnosis for this admission?: Yes Plan: Continue ertapenem. Will recheck urine culture. (3) Influenza, pneumonia Is this a current diagnosis for this admission?: Yes Plan: Continue Tamiflu and levaquin. (4) Acute encephalopathy Is this a current diagnosis for this admission?: Yes Plan: Resolved. Secondary to acute dehydration and infections. Continue current (5) Granuloma pyogenicum Is this a current diagnosis for this admission?: Yes Plan: Evaluated by surgery who recommended silver nitrate as needed. Patient may need more silver nitrate as the wound is still bleeding. (6) Morbid obesity with BMI of 45.0-49.9, adult Is this a current diagnosis for this admission?: Yes Plan: Patient will benefit from dietary counseling as patient is bedbound and can only lose weight by limiting what she consumes. (7) Acute kidney injury superimposed on chronic kidney disease Is this a current diagnosis for this admission?: Yes Plan: Patient appears to have a acute on chronic underlying CKD stage IV. Continue Lasix and metolazone. Stable. Continue to monitor. (8) Anemia in chronic kidney disease (CKD) Qualifiers: Chronic kidney disease stage: stage 4 (severe) Qualified Code(s): N18.4 - Chronic kidney disease, stage 4 (severe); D63.1 - Anemia in chronic kidney disease; D63.1 - Anemia in chronic kidney disease Is this a current diagnosis for this admission?: Yes Plan: CKD stage IV. Hemoglobin appears stable. Continue to monitor. (9) Debility Is this a current diagnosis for this admission?: Yes Plan: Patient is currently bed bound. (10) Depression Qualifiers: Depression Type: unspecified Qualified Code(s): F32.9 - Major depressive disorder, single episode, unspecified Is this a current diagnosis for this admission?: Yes Plan: Continue home medications. (11) Diabetes mellitus, type II Qualifiers: Diabetes mellitus complication detail: with nephropathy Diabetes mellitus halfway insulin use: unspecified halfway insulin use status Is this a current diagnosis for this admission?: Yes Plan: Continue SSI and monitor. Patient started on lantus 100U bid which is her home dose. Will resume her lispro 15 Units TID if needed. (12) History of TIA (transient ischemic attack) and stroke Is this a current diagnosis for this admission?: Yes Plan: Continue supportive care. (13) Dry skin dermatitis Is this a current diagnosis for this admission?: Yes Plan: Patient reports psoriasis. She currently has some patches on her face. Continue steroid cream to use sparingly. - Time Time Spent with patient: Less than 15 minutes Anticipated discharge: SNF Within: Other - Inpatient Certification Medical Necessity: Need for Nebulizer Therapy and Monitoring of Response, Need for IV Antibiotics
[2017-12-03] MEDS: INSULIN GLARGINE,HUM.REC.ANLOG 1,000 UNIT/10 ML UNIT SUBCUT SCH ×2 (10:54→21:30)
[2017-12-03] MEDS: METOLAZONE 2.5 MG TABLET PO SCH (10:56)
[2017-12-03] MEDS: CETIRIZINE 10 MG TABLET PO SCH (10:56)
[2017-12-03] MEDS: FUROSEMIDE 80 MG TABLET PO SCH (10:56)
[2017-12-03] MEDS: CARVEDILOL 12.5 MG TABLET PO SCH ×2 (10:56→21:34)
[2017-12-03] MEDS: ASPIRIN 81 MG TABLET, CHEWABLE PO SCH (10:56)
[2017-12-03] MEDS: FERROUS SULFATE 325 MG TABLET PO SCH ×2 (10:56→17:11)
[2017-12-03] MEDS: PREDNISONE 20 MG TABLET PO SCH (10:56)
--- NOTE | 2017-12-03 10:56 | PDOC PROGRESS REPORT ---
Subjective Progress Note for:: 12/01/17 Subjective:: Patient states she is doing a little better. She will still say she cannot breath from time to time. She still continues to sat well. Patient is not eating very well. Reason For Visit: GUDELIA DM PNEUMONIA Physical Exam Vital Signs: Temp Pulse Resp BP Pulse Ox 98.2 F 89 22 H 151/57 H 98 12/01/17 20:39 12/01/17 20:43 12/01/17 20:43 12/01/17 20:39 12/01/17 20:43 Intake & Output 11/30/17 12/01/17 12/02/17 06:59 06:59 06:59 Intake Total 1491 2270 524 Balance 1491 2270 524 Weight 139.4 kg 140.3 kg General appearance: PRESENT: no acute distress, morbidly obese Head exam: PRESENT: normocephalic Eye exam: PRESENT: EOMI. ABSENT: scleral icterus Ear exam: PRESENT: normal external ear exam Mouth exam: PRESENT: moist Neck exam: ABSENT: carotid bruit, JVD, lymphadenopathy, thyromegaly Respiratory exam: PRESENT: clear to auscultation emperatriz. ABSENT: rales, rhonchi, wheezes Cardiovascular exam: PRESENT: RRR. ABSENT: diastolic murmur, rubs, systolic murmur GI/Abdominal exam: PRESENT: normal bowel sounds, soft. ABSENT: distended, guarding, mass, organolmegaly, rebound, tenderness Rectal exam: PRESENT: deferred Extremities exam: PRESENT: full ROM. ABSENT: calf tenderness, clubbing, pedal edema Neurological exam: PRESENT: alert, awake, oriented to person, oriented to place , oriented to time, oriented to situation, CN II-XII grossly intact. ABSENT: motor sensory deficit Psychiatric exam: PRESENT: flat affect. ABSENT: homicidal ideation, suicidal ideation Skin exam: PRESENT: dry, intact, warm. ABSENT: cyanosis, rash Results Laboratory Results: 11/29/17 06:04 11/30/17 10:47 11/26/17 13:48 NT-Pro-B Natriuret Pep 1440 H Impressions: Chest X-Ray 11/25/17 21:27 IMPRESSION: Stable radiographic appearance of the chest demonstrating cardiomegaly and mild central vascular congestion. Toe X-Ray 11/25/17 21:39 IMPRESSION: Soft tissue irregularity of the great toe without definite periosteal reaction to suggest osteomyelitis. This is seen in the setting of severe osteopenia and a healed fracture deformity of the 5th metatarsal. Assessment & Plan - Diagnosis (1) Sepsis Qualifiers: Sepsis type: Escherichia coli Qualified Code(s): A41.51 - Sepsis due to Escherichia coli [E. coli] Is this a current diagnosis for this admission?: Yes Plan: Resolved now however she presented with fever of 100, tachypnea at 34 breaths per minute, acute on chronic renal failure and altered mental status on admission. Patient found to have ESBL UTI and influenza. Continue tamiflu, Levaquin and ertapenem. (2) ESBL (extended spectrum beta-lactamase) producing bacteria infection Is this a current diagnosis for this admission?: Yes Plan: Continue ertapenem. Urine culture pending. (3) Influenza, pneumonia Is this a current diagnosis for this admission?: Yes Plan: Continue Tamiflu and levaquin. (4) Acute encephalopathy Is this a current diagnosis for this admission?: Yes Plan: Resolved. Secondary to acute dehydration and infections. Continue current (5) Granuloma pyogenicum Is this a current diagnosis for this admission?: Yes Plan: Evaluated by surgery who recommended silver nitrate as needed. Patient may need more silver nitrate as the wound is still bleeding. (6) Morbid obesity with BMI of 45.0-49.9, adult Is this a current diagnosis for this admission?: Yes Plan: Patient will benefit from dietary counseling as patient is bedbound and can only lose weight by limiting what she consumes. (7) Acute kidney injury superimposed on chronic kidney disease Is this a current diagnosis for this admission?: Yes Plan: Patient appears to have a acute on chronic underlying CKD stage IV. Continue Lasix and metolazone. Stable. Continue to monitor. (8) Anemia in chronic kidney disease (CKD) Qualifiers: Chronic kidney disease stage: stage 4 (severe) Qualified Code(s): N18.4 - Chronic kidney disease, stage 4 (severe); D63.1 - Anemia in chronic kidney disease; D63.1 - Anemia in chronic kidney disease Is this a current diagnosis for this admission?: Yes Plan: CKD stage IV. Hemoglobin appears stable. Continue to monitor. (9) Debility Is this a current diagnosis for this admission?: Yes Plan: Patient is currently bed bound. Patient states she does get up to wheelchair with assistance. (10) Depression Qualifiers: Depression Type: unspecified Qualified Code(s): F32.9 - Major depressive disorder, single episode, unspecified Is this a current diagnosis for this admission?: Yes Plan: Continue home medications. (11) Diabetes mellitus, type II Qualifiers: Diabetes mellitus complication detail: with nephropathy Diabetes mellitus skilled nursing insulin use: unspecified skilled nursing insulin use status Is this a current diagnosis for this admission?: Yes Plan: Continue SSI and monitor. Patient started on lantus 100U bid which is her home dose. Resume lispro 15 Units TID. (12) History of TIA (transient ischemic attack) and stroke Is this a current diagnosis for this admission?: Yes Plan: Continue supportive care. (13) Dry skin dermatitis Is this a current diagnosis for this admission?: Yes Plan: Patient reports psoriasis. She currently has some patches on her face. Continue steroid cream to use sparingly. - Time Time Spent with patient: Less than 15 minutes Anticipated discharge: SNF, Other - Patient from [facility]. - Inpatient Certification Medical Necessity: Need for IV Antibiotics
[2017-12-03] MEDS: FLUTICASONE NASAL SPRAY 50 MCG/SPRY 120 SPRAY/16 GM NASL SCH ×2 (10:57→21:45)
[2017-12-03] MEDS ORDERED: LINEZOLID 600 MG TABLET PO ONE (11:00)
[2017-12-03] MEDS: GUAIFENESIN 600 MG TABLET.SA PO SCH ×2 (11:02→21:33)
--- NOTE | 2017-12-03 11:06 | PDOC PROGRESS REPORT ---
Subjective Progress Note for:: 12/02/17 Subjective:: Patient resting comfortably. Patient is still hyperglycemic. Patient appears to be doing better. Reason For Visit: GUDELIA DM PNEUMONIA Physical Exam Vital Signs: Temp Pulse Resp BP Pulse Ox 97.6 F 68 20 146/61 H 94 12/03/17 07:18 12/03/17 08:34 12/03/17 08:34 12/03/17 07:18 12/03/17 08:34 Intake & Output 12/02/17 12/03/17 12/04/17 06:59 06:59 06:59 Intake Total 1312 1002 Balance 1312 1002 Weight 138.9 kg General appearance: PRESENT: no acute distress, morbidly obese Head exam: PRESENT: normocephalic Eye exam: ABSENT: scleral icterus Mouth exam: PRESENT: moist Neck exam: ABSENT: carotid bruit, JVD, lymphadenopathy, thyromegaly Respiratory exam: PRESENT: clear to auscultation emperatriz, decreased breath sounds, unlabored. ABSENT: rales, rhonchi, wheezes Cardiovascular exam: PRESENT: RRR. ABSENT: diastolic murmur, rubs, systolic murmur GI/Abdominal exam: PRESENT: normal bowel sounds, soft. ABSENT: distended, guarding, mass, organolmegaly, rebound, tenderness Rectal exam: PRESENT: deferred Extremities exam: PRESENT: full ROM. ABSENT: calf tenderness, clubbing, pedal edema Neurological exam: PRESENT: other - sleeping. ABSENT: motor sensory deficit Psychiatric exam: PRESENT: appropriate affect, normal mood. ABSENT: homicidal ideation, suicidal ideation Skin exam: PRESENT: dry, intact, warm. ABSENT: cyanosis, rash Results Laboratory Results: 11/29/17 06:04 11/30/17 10:47 12/01/17 10:25 Clean Catch Midstream Urine Culture - Final Vre (E.faecalis) 11/26/17 13:48 NT-Pro-B Natriuret Pep 1440 H Impressions: Chest X-Ray 11/25/17 21:27 IMPRESSION: Stable radiographic appearance of the chest demonstrating cardiomegaly and mild central vascular congestion. Toe X-Ray 11/25/17 21:39 IMPRESSION: Soft tissue irregularity of the great toe without definite periosteal reaction to suggest osteomyelitis. This is seen in the setting of severe osteopenia and a healed fracture deformity of the 5th metatarsal. Assessment & Plan - Diagnosis (1) VRE (vancomycin-resistant Enterococci) Is this a current diagnosis for this admission?: Yes Plan: Patient urine now growning VRE. Patient appears asymptomatic. Will start on zyvox. Discontinue ertapenem. (2) Sepsis Qualifiers: Sepsis type: Escherichia coli Qualified Code(s): A41.51 - Sepsis due to Escherichia coli [E. coli] Is this a current diagnosis for this admission?: Yes Plan: Resolved now however she presented with fever of 100, tachypnea at 34 breaths per minute, acute on chronic renal failure and altered mental status on admission. Patient found to have ESBL UTI and influenza for which patient was adequately treated. Patient now with VRE uti. (3) ESBL (extended spectrum beta-lactamase) producing bacteria infection Is this a current diagnosis for this admission?: Yes Plan: Treated with ertapenem. Repeat urine culture growning VRE. (4) Influenza, pneumonia Is this a current diagnosis for this admission?: Yes Plan: Treated with Tamiflu and Levaquin. (5) Acute encephalopathy Is this a current diagnosis for this admission?: Yes Plan: Resolved. Secondary to acute dehydration and infections. Continue supportive care. (6) Granuloma pyogenicum Is this a current diagnosis for this admission?: Yes Plan: Evaluated by surgery who recommended silver nitrate as needed. (7) Acute kidney injury superimposed on chronic kidney disease Is this a current diagnosis for this admission?: Yes Plan: Patient appears to have a acute on chronic underlying CKD stage IV. Continue Lasix and metolazone. Stable. Continue to monitor. (8) Anemia in chronic kidney disease (CKD) Qualifiers: Chronic kidney disease stage: stage 4 (severe) Qualified Code(s): N18.4 - Chronic kidney disease, stage 4 (severe); D63.1 - Anemia in chronic kidney disease; D63.1 - Anemia in chronic kidney disease Is this a current diagnosis for this admission?: Yes Plan: CKD stage IV. Hemoglobin appears stable. Continue to monitor. (9) Debility Is this a current diagnosis for this admission?: Yes Plan: Patient is currently bed bound. Up to chair as tolerated. (10) Depression Qualifiers: Depression Type: unspecified Qualified Code(s): F32.9 - Major depressive disorder, single episode, unspecified Is this a current diagnosis for this admission?: Yes Plan: Continue home medications. (11) Diabetes mellitus, type II Qualifiers: Diabetes mellitus complication detail: with nephropathy Diabetes mellitus care home insulin use: unspecified middle or intermediate [employer] principal insulin use status Is this a current diagnosis for this admission?: Yes Plan: Continue SSI and monitor. Patient started on lantus 100U bid which is her home dose. Resume lispro 15 Units TID. Wean steroids as this is contributing to her hyperglycemia. (12) History of TIA (transient ischemic attack) and stroke Is this a current diagnosis for this admission?: Yes Plan: Continue supportive care. (13) Dry skin dermatitis Is this a current diagnosis for this admission?: Yes Plan: Patient reports psoriasis. She currently has some patches on her face. Continue steroid cream to use sparingly. (14) Morbid obesity with BMI of 45.0-49.9, adult Is this a current diagnosis for this admission?: Yes Plan: Patient will benefit from dietary counseling as patient is bedbound and can only lose weight by limiting what she consumes. - Time Time Spent with patient: Less than 15 minutes Anticipated discharge: [facility] Within: within 72 hours
--- NOTE | 2017-12-03 14:31 | PDOC PROGRESS REPORT ---
Subjective Progress Note for:: 12/03/17 Subjective:: The patient was brought to the hospital with mental status changes. This is felt to be secondary to influenza pneumonia. Her hospital course has been complicated by the development of an ESBL producing urinary tract infection followed by VRE. Currently, she has an infected right great toe. Today, she does not voice any specific complaints. Of note, the right toe does bleed quite easily and appears to be friable when examined at the bedside. Reason For Visit: GUDELIA DM PNEUMONIA Physical Exam Vital Signs: Temp Pulse Resp BP Pulse Ox 97.9 F 73 16 142/47 H 99 12/03/17 12:28 12/03/17 13:52 12/03/17 12:28 12/03/17 12:28 12/03/17 12:28 Intake & Output 12/02/17 12/03/17 12/04/17 06:59 06:59 06:59 Intake Total 1312 1002 600 Balance 1312 1002 600 Weight 138.9 kg Additional comments: The patient is a morbidly obese white female. She does not appear to be in any distress. Her pulmonary excursion appears to be normal and she does not appear to be tachypneic. Her cognition and mentation are excellent. Her lungs do demonstrate bibasilar and bilateral rails. These are present both anteriorly and posteriorly. Her cardiac exam is regular without murmurs, gallops or rubs. The abdomen is soft, flat and obese. The patient's right great toe appears to have a lesion extending from the tip of the toe. This is a very friable area that bleeds easily. The skin exam was otherwise unremarkable. Results Laboratory Results: 11/29/17 06:04 11/30/17 10:47 12/01/17 10:25 Clean Catch Midstream Urine Culture - Final Vre (E.faecalis) 11/26/17 13:48 NT-Pro-B Natriuret Pep 1440 H Impressions: Chest X-Ray 11/25/17 21:27 IMPRESSION: Stable radiographic appearance of the chest demonstrating cardiomegaly and mild central vascular congestion. Toe X-Ray 11/25/17 21:39 IMPRESSION: Soft tissue irregularity of the great toe without definite periosteal reaction to suggest osteomyelitis. This is seen in the setting of severe osteopenia and a healed fracture deformity of the 5th metatarsal. Assessment & Plan - Diagnosis (1) Acute encephalopathy Is this a current diagnosis for this admission?: Yes Plan: Resolved (2) Dry skin dermatitis Is this a current diagnosis for this admission?: Yes Plan: We should avoid using steroid creams on the face. (3) ESBL (extended spectrum beta-lactamase) producing bacteria infection Is this a current diagnosis for this admission?: Yes Plan: This was treated with ertapenem. (4) Granuloma pyogenicum Is this a current diagnosis for this admission?: Yes Plan: Continue silver nitrate. (5) Morbid obesity with BMI of 45.0-49.9, adult Is this a current diagnosis for this admission?: Yes (6) Sepsis Qualifiers: Sepsis type: sepsis due to unspecified organism Qualified Code(s): A41.9 - Sepsis, unspecified organism Is this a current diagnosis for this admission?: Yes Plan: Clinically improving. (7) VRE (vancomycin-resistant Enterococci) Is this a current diagnosis for this admission?: Yes Plan: Patient is receiving Zyvox. (8) Acute kidney injury superimposed on chronic kidney disease Is this a current diagnosis for this admission?: Yes Plan: Continue Lasix and metolazone. Dose medications appropriately. Avoid nephrotoxins. (9) Anemia in chronic kidney disease (CKD) Qualifiers: Chronic kidney disease stage: stage 4 (severe) Qualified Code(s): N18.4 - Chronic kidney disease, stage 4 (severe); D63.1 - Anemia in chronic kidney disease; D63.1 - Anemia in chronic kidney disease Is this a current diagnosis for this admission?: Yes Plan: Stable (10) CKD (chronic kidney disease) stage 4, GFR 15-29 ml/min Is this a current diagnosis for this admission?: Yes Plan: See above (11) Debility Is this a current diagnosis for this admission?: Yes (12) Depression Qualifiers: Depression Type: unspecified Qualified Code(s): F32.9 - Major depressive disorder, single episode, unspecified Is this a current diagnosis for this admission?: Yes (13) Diabetes mellitus, type II Qualifiers: Diabetes mellitus complication detail: with nephropathy 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 Continue sliding scale. (14) History of TIA (transient ischemic attack) and stroke Is this a current diagnosis for this admission?: Yes (15) Sepsis Qualifiers: Sepsis type: Escherichia coli Qualified Code(s): A41.51 - Sepsis due to Escherichia coli [E. coli] Is this a current diagnosis for this admission?: Yes (16) Toe ulcer Is this a current diagnosis for this admission?: Yes Plan: We will follow recommendations per surgery. - Time Time Spent with patient: 25-34 minutes - Inpatient Certification Medical Necessity: Need for IV Antibiotics
[2017-12-03] MEDS: FENOFIBRATE NANOCRYSTALLIZED 145 MG TABLET PO SCH (21:32)
[2017-12-03] MEDS: ATORVASTATIN CALCIUM 20 MG TABLET PO SCH (21:33)
[2017-12-03] MEDS: TRAZODONE HCL 50 MG TABLET PO SCH (21:34)
[2017-12-03] MEDS: LINEZOLID 600 MG TABLET PO SCH (21:35)
[2017-12-04] MEDS: LEVALBUTEROL HCL NEB 1.25 MG/3 ML AMPUL NEB SCH ×6 (00:31→20:25)
[2017-12-04 05:49] LABS: HEMOGLOBIN 10.9 g/dL (12.0-15.5); MEAN CORPUSCULAR HEMOGLOBIN 31.2 pg (27.0-33.4); MEAN CORPUSCULAR HGB CONC 33.2 g/dL (32.0-36.0); MEAN CORPUSCULAR VOLUME 94 fl (80-97); PLATELET COUNT 277 10^3/uL (150-450); RED BLOOD COUNT 3.51 10^6/uL (3.72-5.28); RED CELL DISTRIBUTION WIDTH 13.6 % (11.5-14.0); WHITE BLOOD COUNT 10.6 10^3/uL (4.0-10.5)
[2017-12-04 05:54] LABS: ANION GAP 12 (5-19); BLOOD UREA NITROGEN 91 mg/dL (7-20); CALCIUM 10.6 mg/dL (8.4-10.2); CARBON DIOXIDE 35 mmol/L (22-30); CHLORIDE 95 mmol/L (98-107); GLUCOSE 326 mg/dL (75-110); PHOSPHORUS 3.1 mg/dL (2.5-4.5); POTASSIUM 5.2 mmol/L (3.6-5.0); SODIUM 142.1 mmol/L (137-145)
[2017-12-04 06:24] LABS: ABSOLUTE LYMPHOCYTES# (MANUAL) 1.8 10^3/uL (0.5-4.7); ABSOLUTE MONOCYTES # (MANUAL) 1.1 10^3/uL (0.1-1.4); ABSOLUTE NEUTROPHILS# (MANUAL) 7.7 10^3/uL (1.7-8.2); BAND NEUTROPHILS % (MANUAL) 4 % (3-5); BASOPHILS % (MANUAL) 0 % (0-2); EOSINOPHILS % (MANUAL) 0 % (0-6); LYMPHOCYTES % (MANUAL) 17 % (13-45); METAMYELOCYTES % (MANUAL) 2 % (0); MONOCYTES % (MANUAL) 10 % (3-13); SEGMENTED NEUTROPHILS % (MAN) 67 % (42-78); TOTAL CELLS COUNTED 100
[2017-12-04 06:27] LABS: TOXIC GRANULATION 1+
[2017-12-04 06:28] LABS: PLATELET COMMENT ADEQUATE; PLATELET GIANT PRESENT; PLATELET LARGE PRESENT; POIKILOCYTOSIS 1+; SCHISTOCYTES SLIGHT; TEAR DROP CELLS SLIGHT
[2017-12-04] MEDS: LEVOTHYROXINE SODIUM 0.088 MG TABLET PO SCH (06:47)
[2017-12-04] MEDS: PREGABALIN 75 MG CAPSULE PO SCH ×3 (06:47→22:46)
[2017-12-04] MEDS: LANSOPRAZOLE 15 MG TAB.RAP.DR PO SCH (06:48)
[2017-12-04] MEDS: HEPARIN SOD (PORCINE) 5,000 UNIT/ML 1 ML SYRINGE SUBCUT SCH ×3 (07:30→22:47)
[2017-12-04] MEDS: BUDESONIDE NEB 0.5 MG/2 ML AMPUL NEB SCH ×2 (09:23→20:24)
[2017-12-04] MEDS: INSULIN LISPRO 100 UNIT/ML 3 ML VIAL SUBCUT SCH ×3 (09:55→17:20)
[2017-12-04] MEDS: INSULIN GLARGINE,HUM.REC.ANLOG 1,000 UNIT/10 ML UNIT SUBCUT SCH ×2 (09:56→22:47)
[2017-12-04] MEDS: INSULIN LISPRO 100 UNIT/ML 3 ML VIAL SUBCUT PRN ×2 (09:57→17:21)
[2017-12-04] MEDS: CETIRIZINE 10 MG TABLET PO SCH (09:58)
[2017-12-04] MEDS: PREDNISONE 20 MG TABLET PO SCH (09:58)
[2017-12-04] MEDS: GUAIFENESIN 600 MG TABLET.SA PO SCH ×2 (09:58→22:46)
[2017-12-04] MEDS: METOLAZONE 2.5 MG TABLET PO SCH (09:59)
[2017-12-04] MEDS: ASPIRIN 81 MG TABLET, CHEWABLE PO SCH (09:59)
[2017-12-04] MEDS: LINEZOLID 600 MG TABLET PO SCH (09:59)
[2017-12-04] MEDS: FUROSEMIDE 80 MG TABLET PO SCH (10:03)
[2017-12-04] MEDS: CARVEDILOL 12.5 MG TABLET PO SCH ×2 (10:03→22:49)
[2017-12-04] MEDS: FLUTICASONE NASAL SPRAY 50 MCG/SPRY 120 SPRAY/16 GM NASL SCH ×2 (10:04→22:48)
[2017-12-04] MEDS: FERROUS SULFATE 325 MG TABLET PO SCH ×2 (10:05→17:21)
--- NOTE | 2017-12-04 12:32 | PDOC PROGRESS REPORT ---
Subjective Progress Note for:: 12/04/17 Subjective:: The patient was brought to the hospital with mental status changes. This is felt to be secondary to influenza pneumonia. Her hospital course has been complicated by the development of an ESBL producing urinary tract infection followed by VRE in the urine. Currently, she has an infected right great toe. Today, she does not voice any specific complaints. Of note, the right toe does bleed quite easily and appears to be friable when examined at the bedside. The patient states that she actually feels that she is starting to improve. Reason For Visit: GUDELIA DM PNEUMONIA Physical Exam Vital Signs: Temp Pulse Resp BP Pulse Ox 98.1 F 63 20 157/54 H 100 12/04/17 08:04 12/04/17 09:23 12/04/17 09:23 12/04/17 08:04 12/04/17 09:23 Intake & Output 12/03/17 12/04/17 12/05/17 06:59 06:59 06:59 Intake Total 1002 1060 Balance 1002 1060 Weight 139.5 kg Additional comments: The patient appears to be her stated age. Her cognition and mentation are normal. Her facial appearance is normal. She has a crusted lesion on the corner of her right mouth but otherwise I do not see any rash formation. Her lungs demonstrate an occasional wheeze with very rare bibasilar crackles only posteriorly. Her cardiac exam demonstrates a regular rate and rhythm without murmurs, gallops or rubs. The abdomen is obese but soft. There is no guarding or rebound noted and there are no hernias or masses present. The lower extremities are warm to touch without any pitting edema. The right toe was wrapped. I did not examine the wound again today. Results Laboratory Results: 12/04/17 04:24 12/04/17 04:24 12/04/17 12/04/17 04:24 04:24 WBC 10.6 H RBC 3.51 L Hgb 10.9 L Hct 33.0 L MCV 94 MCH 31.2 MCHC 33.2 RDW 13.6 Plt Count 277 Seg Neutrophils % Not Reportable Lymphocytes % Not Reportable Monocytes % Not Reportable Eosinophils % Not Reportable Basophils % Not Reportable Absolute Neutrophils Not Reportable Absolute Lymphocytes Not Reportable Absolute Monocytes Not Reportable Absolute Eosinophils Not Reportable Absolute Basophils Not Reportable Sodium 142.1 Potassium 5.2 H Chloride 95 L Carbon Dioxide 35 H Anion Gap 12 BUN 91 H Creatinine 2.31 H Est GFR ( Amer) 25 L Est GFR (Non-Af Amer) 21 L Glucose 326 H Calcium 10.6 H Phosphorus 3.1 Magnesium 2.0 12/01/17 10:25 Clean Catch Midstream Urine Culture - Final Vre (E.faecalis) 11/26/17 13:48 NT-Pro-B Natriuret Pep 1440 H Impressions: Chest X-Ray 11/25/17 21:27 IMPRESSION: Stable radiographic appearance of the chest demonstrating cardiomegaly and mild central vascular congestion. Toe X-Ray 11/25/17 21:39 IMPRESSION: Soft tissue irregularity of the great toe without definite periosteal reaction to suggest osteomyelitis. This is seen in the setting of severe osteopenia and a healed fracture deformity of the 5th metatarsal. Assessment & Plan - Diagnosis (1) Acute encephalopathy Is this a current diagnosis for this admission?: Yes Plan: Resolved (2) Dry skin dermatitis Is this a current diagnosis for this admission?: Yes Plan: We should avoid using steroid creams on the face. The patient has been informed. (3) ESBL (extended spectrum beta-lactamase) producing bacteria infection Is this a current diagnosis for this admission?: Yes Plan: This was treated with ertapenem. (4) Granuloma pyogenicum Is this a current diagnosis for this admission?: Yes Plan: Continue silver nitrate. (5) Morbid obesity with BMI of 45.0-49.9, adult Is this a current diagnosis for this admission?: Yes (6) Sepsis Qualifiers: Sepsis type: sepsis due to unspecified organism Qualified Code(s): A41.9 - Sepsis, unspecified organism Is this a current diagnosis for this admission?: Yes Plan: Clinically improving. (7) VRE (vancomycin-resistant Enterococci) Is this a current diagnosis for this admission?: Yes Plan: Patient is receiving Zyvox. Patient is relatively asymptomatic. I am going to stop the Zyvox. (8) Acute kidney injury superimposed on chronic kidney disease Is this a current diagnosis for this admission?: Yes Plan: Continue Lasix and metolazone. Dose medications appropriately. Avoid nephrotoxins. Patient has mild hyperkalemia and mild hypercalcemia. Will follow. (9) Anemia in chronic kidney disease (CKD) Qualifiers: Chronic kidney disease stage: stage 4 (severe) Qualified Code(s): N18.4 - Chronic kidney disease, stage 4 (severe); D63.1 - Anemia in chronic kidney disease; D63.1 - Anemia in chronic kidney disease Is this a current diagnosis for this admission?: Yes Plan: Stable (10) CKD (chronic kidney disease) stage 4, GFR 15-29 ml/min Is this a current diagnosis for this admission?: Yes Plan: See above (11) Debility Is this a current diagnosis for this admission?: Yes (12) Depression Qualifiers: Depression Type: unspecified Qualified Code(s): F32.9 - Major depressive disorder, single episode, unspecified Is this a current diagnosis for this admission?: Yes (13) Diabetes mellitus, type II Qualifiers: Diabetes mellitus complication detail: with nephropathy Diabetes mellitus nursing home insulin use: unspecified nursing home insulin use status Is this a current diagnosis for this admission?: Yes Plan: Continue Lantus, lispro and wean steroids. Continue sliding scale. (14) History of TIA (transient ischemic attack) and stroke Is this a current diagnosis for this admission?: Yes (15) Sepsis Qualifiers: Sepsis type: Escherichia coli Qualified Code(s): A41.51 - Sepsis due to Escherichia coli [E. coli] Is this a current diagnosis for this admission?: Yes (16) Toe ulcer Is this a current diagnosis for this admission?: Yes Plan: We will follow recommendations per surgery. - Time Time Spent with patient: 25-34 minutes - Inpatient Certification Medical Necessity: Significant Comorbidiites Make Outpatient Treatment Too Risky , Risk of Complication if Not Cared For in Hospital
[2017-12-04] MEDS ORDERED: NORMAL SALINE 1000 ML 1,000 ML IV PRN (16:57)
[2017-12-04] MEDS: ONDANSETRON 4 MG TAB.RAPDIS PO PRN (19:59)
[2017-12-04] MEDS: FENOFIBRATE NANOCRYSTALLIZED 145 MG TABLET PO SCH (22:46)
[2017-12-04] MEDS: ATORVASTATIN CALCIUM 20 MG TABLET PO SCH (22:46)
[2017-12-04] MEDS: TRAZODONE HCL 50 MG TABLET PO SCH (22:46)
[2017-12-05] MEDS: LEVALBUTEROL HCL NEB 1.25 MG/3 ML AMPUL NEB SCH ×7 (00:06→23:54)
--- NOTE | 2017-12-05 06:03 | OPERATIVE REPORT E ---
Operative Report NAME: LORETO JOSHI : 1950 AGE: 67Y DATE OF SURGERY: ROOM: 402 PREOPERATIVE DIAGNOSIS: 1. Mass, dorsal tip, right great toe. 2. Diabetes mellitus. 3. History of right great toe pressure ulcer. POSTOPERATIVE DIAGNOSIS: 1. Mass, dorsal tip, right great toe, with heaped up granulation tissue, right great toe. 2. Diabetes mellitus. 3. History of right great toe pressure ulcer. OPERATION: Excisional debridement of right great toe of granulation tissue, wound irrigation, and wrapping. SURGEON: KAREEM CARRANZA M.D. ANESTHESIA: None. TISSUE REMOVED OR ALTERED: Nonviable tissue removed, granulation tissue, right great toe. COMPLICATIONS: None. ESTIMATED BLOOD LOSS: 5 mL. DRAINS: None. PROCEDURE: Patient was seen at bedside, Room 402. Right great toe exposed. Patient had previous granulation tissue over the dorsal aspect of the right great toe at a site of previous wound care. The area was prepped with alcohol and the heaped up granulation tissue the size of a marble was debrided manually. The underlying epithelium was intact except for a very small 3 mm opening which was essentially the remnant ulcer on the tip of the right great toe. This was irrigated, debrided with a Q-Tip and then dressed with a Xeroform 4 x 4 dressing. According to the patient, she had been undergoing dressing changes, local wound care by Dr. Simpson at the [facility]. My impression is that this granulation tissue represented wound neglect for several weeks. Dressing changes may include Xeroform and 4 x 4s at the [facility] upon discharge home. DICTATING PHYSICIAN: KAREEM CARRANZA M.D. [id number] PHY#: [id number] ID: [id number] JOB#: [id number] ACCT: [id number] cc:KAREEM CARRANZA M.D. >
[2017-12-05] MEDS: PREGABALIN 75 MG CAPSULE PO SCH ×3 (06:05→22:27)
[2017-12-05] MEDS: LANSOPRAZOLE 15 MG TAB.RAP.DR PO SCH (06:05)
[2017-12-05] MEDS: LEVOTHYROXINE SODIUM 0.088 MG TABLET PO SCH (06:05)
[2017-12-05] MEDS: HEPARIN SOD (PORCINE) 5,000 UNIT/ML 1 ML SYRINGE SUBCUT SCH ×3 (06:06→22:30)
[2017-12-05 07:17] LABS: ANION GAP 7 (5-19); BLOOD UREA NITROGEN 109 mg/dL (7-20); CALCIUM 10.5 mg/dL (8.4-10.2); CARBON DIOXIDE 35 mmol/L (22-30); CHLORIDE 99 mmol/L (98-107); GLUCOSE 196 mg/dL (75-110); MAGNESIUM 1.9 mg/dL (1.6-2.3); POTASSIUM 5.1 mmol/L (3.6-5.0); SODIUM 140.7 mmol/L (137-145)
[2017-12-05] MEDS: BUDESONIDE NEB 0.5 MG/2 ML AMPUL NEB SCH ×2 (07:52→20:21)
[2017-12-05] MEDS: INSULIN LISPRO 100 UNIT/ML 3 ML VIAL SUBCUT SCH ×3 (08:30→16:49)
[2017-12-05] MEDS: GUAIFENESIN 600 MG TABLET.SA PO SCH ×2 (10:57→22:28)
[2017-12-05] MEDS: FERROUS SULFATE 325 MG TABLET PO SCH ×2 (10:57→18:25)
[2017-12-05] MEDS: PREDNISONE 20 MG TABLET PO SCH (10:57)
[2017-12-05] MEDS: INSULIN GLARGINE,HUM.REC.ANLOG 1,000 UNIT/10 ML UNIT SUBCUT SCH ×2 (10:57→22:36)
[2017-12-05] MEDS: CARVEDILOL 12.5 MG TABLET PO SCH ×2 (10:57→22:28)
[2017-12-05] MEDS: INSULIN LISPRO 100 UNIT/ML 3 ML VIAL SUBCUT PRN (10:57)
[2017-12-05] MEDS: CETIRIZINE 10 MG TABLET PO SCH (10:57)
[2017-12-05] MEDS: ASPIRIN 81 MG TABLET, CHEWABLE PO SCH (10:57)
[2017-12-05] MEDS: FUROSEMIDE 80 MG TABLET PO SCH (10:58)
[2017-12-05] MEDS: METOLAZONE 2.5 MG TABLET PO SCH (10:58)
[2017-12-05] MEDS: FLUTICASONE NASAL SPRAY 50 MCG/SPRY 120 SPRAY/16 GM NASL SCH ×2 (10:58→22:29)
--- NOTE | 2017-12-05 13:46 | PDOC PROGRESS REPORT ---
Subjective Progress Note for:: 12/05/17 Subjective:: The patient was brought to the hospital with mental status changes. This is felt to be secondary to influenza pneumonia. Her hospital course has been complicated by the development of an ESBL producing urinary tract infection followed by VRE in the urine. Currently, she has a lesion on right great toe. Today, she does not voice any specific complaints. Of note, the right toe does bleed quite easily and appears to be friable when examined at the bedside. The patient states that she actually feels that she is starting to improve. Reason For Visit: GUDELIA DM PNEUMONIA Physical Exam Vital Signs: Temp Pulse Resp BP Pulse Ox 97.8 F 75 18 126/53 H 96 12/05/17 11:29 12/05/17 11:53 12/05/17 11:53 12/05/17 11:29 12/05/17 11:53 Intake & Output 12/04/17 12/05/17 12/06/17 06:59 06:59 06:59 Intake Total 1060 1706 Balance 1060 1706 Weight 139.5 kg 138.5 kg Additional comments: The patient is not in any distress. Her facial appearance is unchanged. She does have a slight rash on the corner of her right lip. The patient's lungs do demonstrate rails. They were present yesterday and the day before. They are unchanged. Her cardiac exam is regular without murmurs, gallops or rubs. The abdomen is noted to be soft and flat. The abdomen is obese. The lower extremities demonstrate changes of chronic venous stasis. The right toe continues to be wrapped. Results Laboratory Results: 12/04/17 04:24 12/05/17 04:30 12/05/17 04:30 Sodium 140.7 Potassium 5.1 H Chloride 99 Carbon Dioxide 35 H Anion Gap 7 BUN 109 H Creatinine 2.20 H Est GFR ( Amer) 27 L Est GFR (Non-Af Amer) 22 L Glucose 196 H Calcium 10.5 H Magnesium 1.9 11/26/17 13:48 NT-Pro-B Natriuret Pep 1440 H Impressions: Chest X-Ray 11/25/17 21:27 IMPRESSION: Stable radiographic appearance of the chest demonstrating cardiomegaly and mild central vascular congestion. Toe X-Ray 11/25/17 21:39 IMPRESSION: Soft tissue irregularity of the great toe without definite periosteal reaction to suggest osteomyelitis. This is seen in the setting of severe osteopenia and a healed fracture deformity of the 5th metatarsal. Assessment & Plan - Diagnosis (1) Acute encephalopathy Is this a current diagnosis for this admission?: Yes Plan: Resolved (2) Dry skin dermatitis Is this a current diagnosis for this admission?: Yes Plan: We should avoid using steroid creams on the face. The patient has been informed. (3) ESBL (extended spectrum beta-lactamase) producing bacteria infection Is this a current diagnosis for this admission?: Yes Plan: This was treated with ertapenem. (4) Granuloma pyogenicum Is this a current diagnosis for this admission?: Yes Plan: Continue silver nitrate. (5) Morbid obesity with BMI of 45.0-49.9, adult Is this a current diagnosis for this admission?: Yes (6) Sepsis Qualifiers: Sepsis type: sepsis due to unspecified organism Qualified Code(s): A41.9 - Sepsis, unspecified organism Is this a current diagnosis for this admission?: Yes Plan: Clinically improving. (7) VRE (vancomycin-resistant Enterococci) Is this a current diagnosis for this admission?: Yes Plan: Patient was receiving Zyvox. Patient is relatively asymptomatic. I stopped the Zyvox. (8) Acute kidney injury superimposed on chronic kidney disease Is this a current diagnosis for this admission?: Yes Plan: Continue Lasix and metolazone. Dose medications appropriately. Avoid nephrotoxins. Patient has mild hyperkalemia and mild hypercalcemia. Will follow. Diet was changed to renal due to hyperkalemia. (9) Anemia in chronic kidney disease (CKD) Qualifiers: Chronic kidney disease stage: stage 4 (severe) Qualified Code(s): N18.4 - Chronic kidney disease, stage 4 (severe); D63.1 - Anemia in chronic kidney disease; D63.1 - Anemia in chronic kidney disease Is this a current diagnosis for this admission?: Yes Plan: Stable (10) CKD (chronic kidney disease) stage 4, GFR 15-29 ml/min Is this a current diagnosis for this admission?: Yes Plan: See above (11) Debility Is this a current diagnosis for this admission?: Yes (12) Depression Qualifiers: Depression Type: unspecified Qualified Code(s): F32.9 - Major depressive disorder, single episode, unspecified Is this a current diagnosis for this admission?: Yes (13) Diabetes mellitus, type II Qualifiers: Diabetes mellitus complication detail: with nephropathy 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 Continue sliding scale. (14) History of TIA (transient ischemic attack) and stroke Is this a current diagnosis for this admission?: Yes (15) Sepsis Qualifiers: Sepsis type: Escherichia coli Qualified Code(s): A41.51 - Sepsis due to Escherichia coli [E. coli] Is this a current diagnosis for this admission?: Yes (16) Toe ulcer Is this a current diagnosis for this admission?: Yes Plan: We will follow recommendations per surgery. I do not think additional antibiotics are needed for this indication. - Time Time Spent with patient: 25-34 minutes - Inpatient Certification Medical Necessity: Significant Comorbidiites Make Outpatient Treatment Too Risky , Need Close Monitoring Due to Risk of Patient Decompensation
[2017-12-05] MEDS: TRAZODONE HCL 50 MG TABLET PO SCH (22:27)
[2017-12-05] MEDS: ATORVASTATIN CALCIUM 20 MG TABLET PO SCH (22:28)
[2017-12-05] MEDS: FENOFIBRATE NANOCRYSTALLIZED 145 MG TABLET PO SCH (22:29)
[2017-12-06] MEDS: METRONIDAZOLE 500 MG TABLET PO SCH ×5 (02:45→23:35)
[2017-12-06] MEDS: LEVALBUTEROL HCL NEB 1.25 MG/3 ML AMPUL NEB SCH ×6 (03:35→23:57)
[2017-12-06 05:27] LABS: ANION GAP 9 (5-19); BLOOD UREA NITROGEN 118 mg/dL (7-20); CALCIUM 10.6 mg/dL (8.4-10.2); CARBON DIOXIDE 36 mmol/L (22-30); CHLORIDE 99 mmol/L (98-107); GLUCOSE 76 mg/dL (75-110); POTASSIUM 4.7 mmol/L (3.6-5.0)
[2017-12-06] MEDS: LEVOTHYROXINE SODIUM 0.088 MG TABLET PO SCH (06:20)
[2017-12-06] MEDS: PREGABALIN 75 MG CAPSULE PO SCH ×3 (06:21→23:08)
[2017-12-06] MEDS: HEPARIN SOD (PORCINE) 5,000 UNIT/ML 1 ML SYRINGE SUBCUT SCH ×3 (06:21→23:31)
[2017-12-06] MEDS: LANSOPRAZOLE 15 MG TAB.RAP.DR PO SCH (06:21)
[2017-12-06] MEDS: BUDESONIDE NEB 0.5 MG/2 ML AMPUL NEB SCH ×2 (07:53→20:34)
[2017-12-06] MEDS: INSULIN LISPRO 100 UNIT/ML 3 ML VIAL SUBCUT SCH ×3 (08:47→16:03)
[2017-12-06] MEDS: FUROSEMIDE 80 MG TABLET PO SCH (10:02)
[2017-12-06] MEDS: CETIRIZINE 10 MG TABLET PO SCH (10:02)
[2017-12-06] MEDS: GUAIFENESIN 600 MG TABLET.SA PO SCH ×2 (10:02→23:10)
[2017-12-06] MEDS: PREDNISONE 20 MG TABLET PO SCH (10:02)
[2017-12-06] MEDS: METOLAZONE 2.5 MG TABLET PO SCH (10:02)
[2017-12-06] MEDS: CARVEDILOL 12.5 MG TABLET PO SCH ×2 (10:02→23:10)
[2017-12-06] MEDS: INSULIN GLARGINE,HUM.REC.ANLOG 1,000 UNIT/10 ML UNIT SUBCUT SCH ×2 (10:03→23:32)
[2017-12-06] MEDS: FLUTICASONE NASAL SPRAY 50 MCG/SPRY 120 SPRAY/16 GM NASL SCH ×2 (10:06→23:11)
[2017-12-06] MEDS: ASPIRIN 81 MG TABLET, CHEWABLE PO SCH (10:06)
[2017-12-06] MEDS: FERROUS SULFATE 325 MG TABLET PO SCH ×2 (11:49→18:01)
--- NOTE | 2017-12-06 12:58 | PDOC PROGRESS REPORT ---
Subjective Progress Note for:: 12/06/17 Subjective:: The patient was brought to the hospital with mental status changes. This is felt to be secondary to influenza pneumonia. Her hospital course has been complicated by the development of an ESBL producing urinary tract infection followed by VRE in the urine. Currently, she has a lesion on right great toe. Today, she does not voice any specific complaints. Of note, the right toe does bleed quite easily and appears to be friable when examined at the bedside. Surgery has been following. They feel that this is granuloma pyogenicum. She is being treated with silver nitrate. On Monday, the patient stated that she is starting to feel better and turning the corner. Later in the afternoon she developed diarrhea. We did confirm that she has C. difficile colitis and she is now on Flagyl. Reason For Visit: GUDELIA DM PNEUMONIA Physical Exam Vital Signs: Temp Pulse Resp BP Pulse Ox 98.5 F 69 18 135/57 H 97 12/06/17 12:00 12/06/17 12:00 12/06/17 12:00 12/06/17 12:00 12/06/17 12:00 Intake & Output 12/05/17 12/06/17 12/07/17 06:59 06:59 06:59 Intake Total 1706 1399 Balance 1706 1399 Weight 138.5 kg 137 kg Additional comments: The patient was a little bit sad this morning. She understands that she cannot leave the hospital if she could contaminate other patients at the skilled facility. Her cognition and facial appearance are unremarkable. Her lungs demonstrate decreased breath sounds but are clear of rales today. Her cardiac exam is regular without murmurs, gallops or rubs. The abdomen is obese but soft. She does not have guarding or rebound noted and there are no hernias or masses present. The lower extremities demonstrate obesity, changes of venous stasis. The right toe was wrapped in a bandage. Results Laboratory Results: 12/04/17 04:24 12/06/17 04:03 12/05/17 12/05/17 12/06/17 16:03 16:03 04:03 Sodium 144.0 Potassium 4.7 Chloride 99 Carbon Dioxide 36 H Anion Gap 9 BUN 118 H Creatinine 2.19 H Est GFR ( Amer) 27 L Est GFR (Non-Af Amer) 22 L Glucose 76 Calcium 10.6 H Stool Occult Blood NEGATIVE Stool for White Cells NO WBCs SEEN 11/26/17 13:48 NT-Pro-B Natriuret Pep 1440 H Impressions: Chest X-Ray 11/25/17 21:27 IMPRESSION: Stable radiographic appearance of the chest demonstrating cardiomegaly and mild central vascular congestion. Toe X-Ray 11/25/17 21:39 IMPRESSION: Soft tissue irregularity of the great toe without definite periosteal reaction to suggest osteomyelitis. This is seen in the setting of severe osteopenia and a healed fracture deformity of the 5th metatarsal. Assessment & Plan - Diagnosis (1) Acute encephalopathy Is this a current diagnosis for this admission?: Yes Plan: Resolved (2) Dry skin dermatitis Is this a current diagnosis for this admission?: Yes Plan: We should avoid using steroid creams on the face. The patient has been informed. (3) ESBL (extended spectrum beta-lactamase) producing bacteria infection Is this a current diagnosis for this admission?: Yes Plan: This was treated with ertapenem. (4) Granuloma pyogenicum Is this a current diagnosis for this admission?: Yes Plan: Continue silver nitrate. (5) Morbid obesity with BMI of 45.0-49.9, adult Is this a current diagnosis for this admission?: Yes (6) Sepsis Qualifiers: Sepsis type: sepsis due to unspecified organism Qualified Code(s): A41.9 - Sepsis, unspecified organism Is this a current diagnosis for this admission?: Yes Plan: Clinically improving. (7) VRE (vancomycin-resistant Enterococci) Is this a current diagnosis for this admission?: Yes Plan: Patient was receiving Zyvox. Patient is relatively asymptomatic. I stopped the Zyvox. (8) Acute kidney injury superimposed on chronic kidney disease Is this a current diagnosis for this admission?: Yes Plan: Continue Lasix and metolazone. Dose medications appropriately. Avoid nephrotoxins. Patient has mild hyperkalemia and mild hypercalcemia. Will follow. Diet was changed to renal due to hyperkalemia. (9) Anemia in chronic kidney disease (CKD) Qualifiers: Chronic kidney disease stage: stage 4 (severe) Qualified Code(s): N18.4 - Chronic kidney disease, stage 4 (severe); D63.1 - Anemia in chronic kidney disease; D63.1 - Anemia in chronic kidney disease Is this a current diagnosis for this admission?: Yes Plan: Stable (10) CKD (chronic kidney disease) stage 4, GFR 15-29 ml/min Is this a current diagnosis for this admission?: Yes Plan: See above. She also has mild hypercalcemia likely related to secondary parathyroid disease. Monitor calcium level. 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 Continue sliding scale. (14) History of TIA (transient ischemic attack) and stroke Is this a current diagnosis for this admission?: Yes (15) Sepsis Qualifiers: Sepsis type: Escherichia coli Qualified Code(s): A41.51 - Sepsis due to Escherichia coli [E. coli] Is this a current diagnosis for this admission?: Yes Plan: Resolved. (16) Toe ulcer Is this a current diagnosis for this admission?: Yes Plan: We will follow recommendations per surgery. I do not think additional antibiotics are needed for this indication. See above, the patient is receiving silver nitrate. (17) C. difficile colitis Is this a current diagnosis for this admission?: Yes Plan: Oral Flagyl was started last night. - Time Time Spent with patient: 25-34 minutes - Inpatient Certification Medical Necessity: Need Close Monitoring Due to Risk of Patient Decompensation, Other - Due to C. difficile colitis, patient is not able to return to senior living facility due to the risk of a severe outbreak of C. difficile colitis among other residents.
[2017-12-06] MEDS: FENOFIBRATE NANOCRYSTALLIZED 145 MG TABLET PO SCH (23:08)
[2017-12-06] MEDS: TRAZODONE HCL 50 MG TABLET PO SCH (23:09)
[2017-12-06] MEDS: ATORVASTATIN CALCIUM 20 MG TABLET PO SCH (23:10)
[2017-12-07] MEDS: ONDANSETRON 4 MG TAB.RAPDIS PO PRN
[2017-12-07] MEDS: LEVALBUTEROL HCL NEB 1.25 MG/3 ML AMPUL NEB SCH ×3 (04:04→12:05)
[2017-12-07] MEDS: HEPARIN SOD (PORCINE) 5,000 UNIT/ML 1 ML SYRINGE SUBCUT SCH ×3 (05:44→23:27)
[2017-12-07] MEDS: LANSOPRAZOLE 15 MG TAB.RAP.DR PO SCH (05:44)
[2017-12-07] MEDS: LEVOTHYROXINE SODIUM 0.088 MG TABLET PO SCH (05:45)
[2017-12-07] MEDS: METRONIDAZOLE 500 MG TABLET PO SCH ×4 (05:45→23:37)
[2017-12-07] MEDS: PREGABALIN 75 MG CAPSULE PO SCH ×2 (05:45→14:48)
[2017-12-07 06:53] LABS: ANION GAP 10 (5-19); CALCIUM 10.6 mg/dL (8.4-10.2); CARBON DIOXIDE 36 mmol/L (22-30); CHLORIDE 101 mmol/L (98-107); GLUCOSE 202 mg/dL (75-110); POTASSIUM 4.4 mmol/L (3.6-5.0); SODIUM 146.5 mmol/L (137-145)
[2017-12-07 07:03] LABS: BLOOD UREA NITROGEN 113 mg/dL (7-20)
[2017-12-07] MEDS: BUDESONIDE NEB 0.5 MG/2 ML AMPUL NEB SCH ×2 (08:02→21:06)
[2017-12-07] MEDS: INSULIN LISPRO 100 UNIT/ML 3 ML VIAL SUBCUT SCH ×3 (08:23→17:59)
[2017-12-07] MEDS: ASPIRIN 81 MG TABLET, CHEWABLE PO SCH (10:41)
[2017-12-07] MEDS: INSULIN GLARGINE,HUM.REC.ANLOG 1,000 UNIT/10 ML UNIT SUBCUT SCH ×2 (10:41→23:27)
[2017-12-07] MEDS: METOLAZONE 2.5 MG TABLET PO SCH (10:42)
[2017-12-07] MEDS: CETIRIZINE 10 MG TABLET PO SCH (10:42)
[2017-12-07] MEDS: FUROSEMIDE 80 MG TABLET PO SCH (10:42)
[2017-12-07] MEDS: FERROUS SULFATE 325 MG TABLET PO SCH ×2 (10:43→17:59)
[2017-12-07] MEDS: PREDNISONE 20 MG TABLET PO SCH (10:43)
[2017-12-07] MEDS: FLUTICASONE NASAL SPRAY 50 MCG/SPRY 120 SPRAY/16 GM NASL SCH ×2 (10:43→23:27)
[2017-12-07] MEDS: GUAIFENESIN 600 MG TABLET.SA PO SCH ×2 (10:43→23:29)
[2017-12-07] MEDS: CARVEDILOL 12.5 MG TABLET PO SCH ×2 (10:43→23:28)
[2017-12-07] MEDS ORDERED: PROMETHAZINE HCL 25 MG TABLET PO PRN (14:38)
[2017-12-07] MEDS ORDERED: LEVALBUTEROL HCL NEB 1.25 MG/3 ML AMPUL NEB PRN (14:39)
[2017-12-07] MEDS ORDERED: NORMAL SALINE 1000 ML 1,000 ML IV PRN (18:29)
--- NOTE | 2017-12-07 18:39 | PDOC PROGRESS REPORT ---
Subjective Progress Note for:: 12/07/17 Subjective:: Patient complains of cough which is worse at night and chest congestion. Patient also complains of diarrhea Review of systems All organ systems evaluated and negative except as in subjective All significant diagnostics and laboratories have been reviewed Reason For Visit: GUDELIA DM PNEUMONIA Physical Exam Vital Signs: Temp Pulse Resp BP Pulse Ox 97.8 F 79 19 104/64 100 12/07/17 07:45 12/07/17 12:05 12/07/17 12:05 12/07/17 07:45 12/07/17 07:45 Intake & Output 12/06/17 12/07/17 12/08/17 06:59 06:59 06:59 Intake Total 1399 1557 Balance 1399 1557 Weight 137 kg 138 kg General appearance: PRESENT: cooperative, other - Chronically looking Head exam: PRESENT: atraumatic, normocephalic Eye exam: PRESENT: EOMI, PERRLA Ear exam: PRESENT: normal external ear exam Neck exam: PRESENT: carotid bruit. ABSENT: JVD, lymphadenopathy, tenderness Respiratory exam: PRESENT: crackles Cardiovascular exam: PRESENT: irregular rhythm. ABSENT: diastolic murmur, systolic murmur Vascular exam: PRESENT: normal capillary refill GI/Abdominal exam: PRESENT: normal bowel sounds, soft. ABSENT: tenderness Extremities exam: ABSENT: joint swelling, pedal edema Neurological exam: PRESENT: alert, oriented to person, oriented to place, oriented to time, oriented to situation Psychiatric exam: PRESENT: anxious Skin exam: PRESENT: intact, normal color Results Laboratory Results: 12/04/17 04:24 12/07/17 05:26 12/07/17 05:26 Sodium 146.5 H Potassium 4.4 Chloride 101 Carbon Dioxide 36 H Anion Gap 10 BUN 113 H Creatinine 2.16 H Est GFR ( Amer) 27 L Est GFR (Non-Af Amer) 23 L Glucose 202 H Calcium 10.6 H 11/26/17 13:48 NT-Pro-B Natriuret Pep 1440 H Impressions: Chest X-Ray 11/25/17 21:27 IMPRESSION: Stable radiographic appearance of the chest demonstrating cardiomegaly and mild central vascular congestion. Toe X-Ray 11/25/17 21:39 IMPRESSION: Soft tissue irregularity of the great toe without definite periosteal reaction to suggest osteomyelitis. This is seen in the setting of severe osteopenia and a healed fracture deformity of the 5th metatarsal. Assessment & Plan - Diagnosis (1) Acute kidney injury superimposed on chronic kidney disease Is this a current diagnosis for this admission?: Yes Plan: Will hold off Lasix and metolazone. Will start IV fluids and trend kidney function (2) C. difficile diarrhea Is this a current diagnosis for this admission?: Yes Plan: Will add vancomycin to Flagyl (3) Chronic diastolic (congestive) heart failure Is this a current diagnosis for this admission?: Yes Plan: Will hold off Lasix and metolazone since now patient is volume contracted (4) Influenza, pneumonia Is this a current diagnosis for this admission?: Yes Plan: Supportive - Time Time Spent with patient: 15-24 minutes Medications reviewed and adjusted accordingly: Yes - Letter Anticipated discharge: SNF Within: within 72 hours - Inpatient Certification Based on my medical assessment, after consideration of the patient's comorbidities, presenting symptoms, or acuity I expect that the services needed warrant INPATIENT care.: Yes I certify that my determination is in accordance with my understanding of Medicare's requirements for reasonable and necessary INPATIENT services [42 CFR 412.3e].: Yes Medical Necessity: Need For IV Fluids, Need for IV Antibiotics
[2017-12-07] MEDS ORDERED: VANCOMYCIN HCL INJ 500 MG VIAL PO ONE (20:00)
[2017-12-07] MEDS: ACETAMINOPHEN 325 MG TABLET PO PRN (21:01)
[2017-12-07] MEDS: IPRATROPIUM/ALBUTEROL 0.5-2.5 MG/3 ML AMPUL NEB SCH (21:06)
[2017-12-07] MEDS: ATORVASTATIN CALCIUM 20 MG TABLET PO SCH (23:28)
[2017-12-07] MEDS: TRAZODONE HCL 50 MG TABLET PO SCH (23:28)
[2017-12-07] MEDS: FENOFIBRATE NANOCRYSTALLIZED 145 MG TABLET PO SCH (23:29)
[2017-12-07] MEDS: VANCOMYCIN HCL INJ 500 MG VIAL PO SCH (23:37)
[2017-12-08] MEDS: OXYMETAZOLINE HCL 0.05% NASAL SPRAY 15 ML BOTTLE NASL SCH ×2 (00:25→09:26)
[2017-12-08] MEDS: LANSOPRAZOLE 15 MG TAB.RAP.DR PO SCH (06:24)
[2017-12-08] MEDS: HEPARIN SOD (PORCINE) 5,000 UNIT/ML 1 ML SYRINGE SUBCUT SCH ×3 (06:24→23:04)
[2017-12-08] MEDS: METRONIDAZOLE 500 MG TABLET PO SCH ×4 (06:24→23:13)
[2017-12-08] MEDS: LEVOTHYROXINE SODIUM 0.088 MG TABLET PO SCH (06:24)
[2017-12-08] MEDS: VANCOMYCIN HCL INJ 500 MG VIAL PO SCH ×4 (06:24→23:14)
[2017-12-08 07:23] LABS: HEMATOCRIT 32.1 % (36.0-47.0); MEAN CORPUSCULAR HEMOGLOBIN 31.7 pg (27.0-33.4); MEAN CORPUSCULAR HGB CONC 34.1 g/dL (32.0-36.0); MEAN CORPUSCULAR VOLUME 93 fl (80-97); PLATELET COUNT 224 10^3/uL (150-450); RED BLOOD COUNT 3.46 10^6/uL (3.72-5.28); RED CELL DISTRIBUTION WIDTH 13.9 % (11.5-14.0); WHITE BLOOD COUNT 9.6 10^3/uL (4.0-10.5)
[2017-12-08 07:39] LABS: ANION GAP 9 (5-19); BLOOD UREA NITROGEN 117 mg/dL (7-20); CALCIUM 10.1 mg/dL (8.4-10.2); CARBON DIOXIDE 37 mmol/L (22-30); CHLORIDE 99 mmol/L (98-107); GLUCOSE 146 mg/dL (75-110); MAGNESIUM 1.9 mg/dL (1.6-2.3); POTASSIUM 4.1 mmol/L (3.6-5.0)
[2017-12-08] MEDS: BUDESONIDE NEB 0.5 MG/2 ML AMPUL NEB SCH ×2 (07:52→20:18)
[2017-12-08] MEDS: IPRATROPIUM/ALBUTEROL 0.5-2.5 MG/3 ML AMPUL NEB SCH ×3 (07:52→20:18)
[2017-12-08 08:11] LABS: ABSOLUTE LYMPHOCYTES# (MANUAL) 1.6 10^3/uL (0.5-4.7); ABSOLUTE MONOCYTES # (MANUAL) 0.6 10^3/uL (0.1-1.4); ABSOLUTE NEUTROPHILS# (MANUAL) 7.3 10^3/uL (1.7-8.2); BASOPHILS % (MANUAL) 0 % (0-2); EOSINOPHILS % (MANUAL) 1 % (0-6); LYMPHOCYTES % (MANUAL) 17 % (13-45); MONOCYTES % (MANUAL) 6 % (3-13); SEGMENTED NEUTROPHILS % (MAN) 76 % (42-78); TOTAL CELLS COUNTED 100
[2017-12-08 08:12] LABS: PLATELET COMMENT ADEQUATE; STOMATOCYTES 1+
[2017-12-08] MEDS: GUAIFENESIN 600 MG TABLET.SA PO SCH ×2 (09:25→23:03)
[2017-12-08] MEDS: FERROUS SULFATE 325 MG TABLET PO SCH ×2 (09:26→17:35)
[2017-12-08] MEDS: ASPIRIN 81 MG TABLET, CHEWABLE PO SCH (09:26)
[2017-12-08] MEDS: CETIRIZINE 10 MG TABLET PO SCH (09:26)
[2017-12-08] MEDS: PREDNISONE 20 MG TABLET PO SCH (09:27)
[2017-12-08] MEDS: CARVEDILOL 12.5 MG TABLET PO SCH ×2 (09:28→23:02)
[2017-12-08] MEDS: INSULIN LISPRO 100 UNIT/ML 3 ML VIAL SUBCUT SCH ×3 (09:29→17:00)
[2017-12-08] MEDS: INSULIN LISPRO 100 UNIT/ML 3 ML VIAL SUBCUT PRN (09:37)
[2017-12-08] MEDS: INSULIN GLARGINE,HUM.REC.ANLOG 1,000 UNIT/10 ML UNIT SUBCUT SCH ×2 (09:38→23:04)
[2017-12-08] MEDS: FLUTICASONE NASAL SPRAY 50 MCG/SPRY 120 SPRAY/16 GM NASL SCH ×2 (09:39→23:12)
[2017-12-08] MEDS: NORMAL SALINE 1000 ML 1,000 ML IV PRN (11:50)
[2017-12-08] MEDS ORDERED: AMLODIPINE BESYLATE 10 MG TABLET PO SCH (13:00)
[2017-12-08] MEDS ORDERED: AMLODIPINE BESYLATE 10 MG TABLET PO ONE (13:30)
--- NOTE | 2017-12-08 15:28 | PDOC PROGRESS REPORT ---
Subjective Progress Note for:: 12/08/17 Subjective:: Patient complains of cough which is worse at night and chest congestion. Patient relates that diarrhea is almost the same Review of systems All organ systems evaluated and negative except as in subjective All significant diagnostics and laboratories have been reviewed Reason For Visit: GUDELIA DM PNEUMONIA Physical Exam Vital Signs: Temp Pulse Resp BP Pulse Ox 97.8 F 68 18 143/79 H 100 12/08/17 07:56 12/08/17 07:56 12/08/17 07:56 12/08/17 07:56 12/08/17 07:56 Intake & Output 12/07/17 12/08/17 12/09/17 06:59 06:59 06:59 Intake Total 1557 1777 Balance 1557 1777 Weight 138 kg 136.1 kg General appearance: PRESENT: no acute distress, morbidly obese Head exam: PRESENT: atraumatic, normocephalic Eye exam: PRESENT: conjunctiva pink, EOMI, PERRLA Ear exam: PRESENT: normal external ear exam Mouth exam: PRESENT: moist Neck exam: PRESENT: full ROM. ABSENT: JVD, lymphadenopathy, tenderness Respiratory exam: PRESENT: crackles - Adequate movement of air with soft basilar crackles Cardiovascular exam: PRESENT: RRR. ABSENT: diastolic murmur, systolic murmur GI/Abdominal exam: PRESENT: normal bowel sounds, soft. ABSENT: tenderness Extremities exam: PRESENT: full ROM. ABSENT: joint swelling, pedal edema Neurological exam: PRESENT: alert, awake, oriented to person, oriented to place , oriented to time, CN II-XII grossly intact Psychiatric exam: PRESENT: appropriate affect, normal mood Skin exam: PRESENT: intact, normal color Results Laboratory Results: 12/08/17 07:04 12/08/17 07:04 12/08/17 12/08/17 07:04 07:04 WBC 9.6 RBC 3.46 L Hgb 11.0 L Hct 32.1 L MCV 93 MCH 31.7 MCHC 34.1 RDW 13.9 Plt Count 224 Seg Neutrophils % Not Reportable Lymphocytes % Not Reportable Monocytes % Not Reportable Eosinophils % Not Reportable Basophils % Not Reportable Absolute Neutrophils Not Reportable Absolute Lymphocytes Not Reportable Absolute Monocytes Not Reportable Absolute Eosinophils Not Reportable Absolute Basophils Not Reportable Sodium 145.0 Potassium 4.1 Chloride 99 Carbon Dioxide 37 H Anion Gap 9 BUN 117 H Creatinine 2.11 H Est GFR ( Amer) 28 L Est GFR (Non-Af Amer) 23 L Glucose 146 H Calcium 10.1 Magnesium 1.9 12/05/17 16:03 Stool - Stool - Final 12/05/17 16:03 Stool - Stool Stool Culture - Final NO SALMONELLA, SHIGELLA, CAMPYLOBACTER, OR E.COLI 0157 RECOVERED. NEGATIVE FOR SHIGA TOXINS 1&2. 11/26/17 13:48 NT-Pro-B Natriuret Pep 1440 H Impressions: Chest X-Ray 11/25/17 21:27 IMPRESSION: Stable radiographic appearance of the chest demonstrating cardiomegaly and mild central vascular congestion. Toe X-Ray 11/25/17 21:39 IMPRESSION: Soft tissue irregularity of the great toe without definite periosteal reaction to suggest osteomyelitis. This is seen in the setting of severe osteopenia and a healed fracture deformity of the 5th metatarsal. Assessment & Plan - Diagnosis (1) Acute kidney injury superimposed on chronic kidney disease Is this a current diagnosis for this admission?: Yes Plan: Lasix and metolazone held off. Continue IV fluids and trend kidney function (2) C. difficile diarrhea Is this a current diagnosis for this admission?: Yes Plan: Continue flagyl and vancomycin oral. Add lactobacillus and Metamucil (3) Chronic diastolic (congestive) heart failure Is this a current diagnosis for this admission?: Yes Plan: Will hold off Lasix and metolazone since now patient is volume contracted. Watch for decompensation (4) Influenza, pneumonia Is this a current diagnosis for this admission?: Yes Plan: Supportive. Add stronger antitussive. - Time Time Spent with patient: 15-24 minutes Medications reviewed and adjusted accordingly: Yes Anticipated discharge: Acute Rehab Within: within 72 hours - Inpatient Certification Based on my medical assessment, after consideration of the patient's comorbidities, presenting symptoms, or acuity I expect that the services needed warrant INPATIENT care.: Yes I certify that my determination is in accordance with my understanding of Medicare's requirements for reasonable and necessary INPATIENT services [42 CFR 412.3e].: Yes Medical Necessity: Need Close Monitoring Due to Risk of Patient Decompensation, Need For IV Fluids
[2017-12-08] MEDS: PSYLLIUM SEED-SF 5.85 GM PACKET PO SCH ×2 (17:34→23:03)
[2017-12-08] MEDS: HYDROCODONE BIT/HOMATROPINE 5-1.5 MG TABLET PO PRN ×2 (17:35→23:13)
[2017-12-08] MEDS: ATORVASTATIN CALCIUM 20 MG TABLET PO SCH (23:03)
[2017-12-08] MEDS: FENOFIBRATE NANOCRYSTALLIZED 145 MG TABLET PO SCH (23:03)
[2017-12-08] MEDS: TRAZODONE HCL 50 MG TABLET PO SCH (23:03)
[2017-12-09] MEDS: NORMAL SALINE 1000 ML 1,000 ML IV PRN ×2 (00:07→17:16)
[2017-12-09] MEDS: OXYMETAZOLINE HCL 0.05% NASAL SPRAY 15 ML BOTTLE NASL SCH ×3 (04:37→22:59)
[2017-12-09] MEDS: PSYLLIUM SEED-SF 5.85 GM PACKET PO SCH ×3 (05:11→22:59)
[2017-12-09 05:23] LABS: ABSOLUTE EOSINOPHILS # (AUTO) 0.2 10^3/uL (0.0-0.6); ABSOLUTE LYMPHOCYTES (AUTO) 2.2 10^3/uL (0.5-4.7); ABSOLUTE MONOCYTES (AUTO) 1.2 10^3/uL (0.1-1.4); ABSOLUTE NEUT (AUTO) 5.4 10^3/uL (1.7-8.2); BASOPHILS % (AUTO) 0.5 % (0-2); EOSINOPHILS % (AUTO) 1.7 % (0-6); HEMATOCRIT 30.7 % (36.0-47.0); LYMPHOCYTES % (AUTO) 24.8 % (13-45); MEAN CORPUSCULAR HEMOGLOBIN 31.2 pg (27.0-33.4); MEAN CORPUSCULAR HGB CONC 32.6 g/dL (32.0-36.0); MEAN CORPUSCULAR VOLUME 96 fl (80-97); MONOCYTES % (AUTO) 13.1 % (3-13); PLATELET COUNT 208 10^3/uL (150-450); RED CELL DISTRIBUTION WIDTH 14.3 % (11.5-14.0); SEGMENTED NEUTROPHILS % (AUTO) 59.9 % (42-78); TOTAL CELLS COUNTED % (AUTO) 100 %; WHITE BLOOD COUNT 8.9 10^3/uL (4.0-10.5)
[2017-12-09] MEDS: METRONIDAZOLE 500 MG TABLET PO SCH ×4 (05:44→23:33)
[2017-12-09] MEDS: VANCOMYCIN HCL INJ 500 MG VIAL PO SCH ×4 (05:45→23:33)
[2017-12-09] MEDS: HEPARIN SOD (PORCINE) 5,000 UNIT/ML 1 ML SYRINGE SUBCUT SCH ×3 (05:45→22:57)
[2017-12-09] MEDS: LEVOTHYROXINE SODIUM 0.088 MG TABLET PO SCH (05:45)
[2017-12-09] MEDS: LANSOPRAZOLE 15 MG TAB.RAP.DR PO SCH (05:45)
[2017-12-09] MEDS: HYDROCODONE BIT/HOMATROPINE 5-1.5 MG TABLET PO PRN ×2 (05:48→23:33)
[2017-12-09 05:50] LABS: ANION GAP 6 (5-19); CALCIUM 9.6 mg/dL (8.4-10.2); CARBON DIOXIDE 32 mmol/L (22-30); CHLORIDE 107 mmol/L (98-107); GLUCOSE 54 mg/dL (75-110); POTASSIUM 4.4 mmol/L (3.6-5.0); SODIUM 144.5 mmol/L (137-145)
[2017-12-09 06:06] LABS: BLOOD UREA NITROGEN 89 mg/dL (7-20)
[2017-12-09] MEDS: INSULIN LISPRO 100 UNIT/ML 3 ML VIAL SUBCUT SCH ×3 (07:44→16:51)
[2017-12-09] MEDS: IPRATROPIUM/ALBUTEROL 0.5-2.5 MG/3 ML AMPUL NEB SCH ×3 (08:29→20:36)
[2017-12-09] MEDS: BUDESONIDE NEB 0.5 MG/2 ML AMPUL NEB SCH ×2 (08:29→20:36)
[2017-12-09] MEDS: FLUTICASONE NASAL SPRAY 50 MCG/SPRY 120 SPRAY/16 GM NASL SCH ×2 (10:24→22:58)
[2017-12-09] MEDS: CETIRIZINE 10 MG TABLET PO SCH (10:25)
[2017-12-09] MEDS: CARVEDILOL 12.5 MG TABLET PO SCH ×2 (10:25→22:57)
[2017-12-09] MEDS: FERROUS SULFATE 325 MG TABLET PO SCH ×2 (10:25→17:15)
[2017-12-09] MEDS: ASPIRIN 81 MG TABLET, CHEWABLE PO SCH (10:25)
[2017-12-09] MEDS: AMLODIPINE BESYLATE 10 MG TABLET PO SCH (10:25)
[2017-12-09] MEDS: GUAIFENESIN 600 MG TABLET.SA PO SCH ×2 (10:27→22:56)
[2017-12-09] MEDS: PREDNISONE 20 MG TABLET PO SCH (10:27)
[2017-12-09] MEDS: INSULIN GLARGINE,HUM.REC.ANLOG 1,000 UNIT/10 ML UNIT SUBCUT SCH ×2 (11:47→22:59)
--- NOTE | 2017-12-09 13:49 | PDOC PROGRESS REPORT ---
Subjective Progress Note for:: 12/09/17 Subjective:: Patient states that still having significant cough at night. She admits that the diarrhea is slowly getting better Review of systems All organ systems evaluated and negative except as in subjective All significant diagnostics and laboratories had been reviewed Reason For Visit: GUDELIA DM PNEUMONIA Physical Exam Vital Signs: Temp Pulse Resp BP Pulse Ox 98.0 F 70 20 145/48 H 97 12/09/17 04:24 12/09/17 04:24 12/09/17 04:24 12/09/17 04:24 12/09/17 04:24 Intake & Output 12/08/17 12/09/17 12/10/17 06:59 06:59 06:59 Intake Total 1777 5867 Balance 1777 5867 Weight 136.1 kg 138.4 kg General appearance: PRESENT: no acute distress, cooperative, morbidly obese Head exam: PRESENT: atraumatic, normocephalic Eye exam: PRESENT: EOMI, PERRLA Ear exam: PRESENT: normal external ear exam Mouth exam: PRESENT: moist Neck exam: PRESENT: full ROM. ABSENT: JVD, lymphadenopathy Respiratory exam: PRESENT: clear to auscultation emperatriz Cardiovascular exam: PRESENT: RRR. ABSENT: diastolic murmur, systolic murmur Vascular exam: PRESENT: normal capillary refill GI/Abdominal exam: PRESENT: normal bowel sounds, soft. ABSENT: tenderness Extremities exam: PRESENT: full ROM. ABSENT: joint swelling, pedal edema Musculoskeletal exam: ABSENT: ambulatory Neurological exam: PRESENT: alert, awake, oriented to person, oriented to place , oriented to time, oriented to situation, CN II-XII grossly intact Psychiatric exam: PRESENT: appropriate affect, normal mood Skin exam: PRESENT: intact, normal color Results Laboratory Results: 12/09/17 04:04 12/09/17 04:04 12/08/17 12/08/17 12/09/17 07:04 07:04 04:04 WBC 9.6 8.9 RBC 3.46 L 3.20 L Hgb 11.0 L 10.0 L Hct 32.1 L 30.7 L MCV 93 96 MCH 31.7 31.2 MCHC 34.1 32.6 RDW 13.9 14.3 H Plt Count 224 208 Seg Neutrophils % Not Reportable 59.9 Lymphocytes % Not Reportable 24.8 Monocytes % Not Reportable 13.1 H Eosinophils % Not Reportable 1.7 Basophils % Not Reportable 0.5 Absolute Neutrophils Not Reportable 5.4 Absolute Lymphocytes Not Reportable 2.2 Absolute Monocytes Not Reportable 1.2 Absolute Eosinophils Not Reportable 0.2 Absolute Basophils Not Reportable 0.0 Sodium 145.0 Potassium 4.1 Chloride 99 Carbon Dioxide 37 H Anion Gap 9 BUN 117 H Creatinine 2.11 H Est GFR ( Amer) 28 L Est GFR (Non-Af Amer) 23 L Glucose 146 H Calcium 10.1 Magnesium 1.9 12/09/17 04:04 WBC RBC Hgb Hct MCV MCH MCHC RDW Plt Count Seg Neutrophils % Lymphocytes % Monocytes % Eosinophils % Basophils % Absolute Neutrophils Absolute Lymphocytes Absolute Monocytes Absolute Eosinophils Absolute Basophils Sodium 144.5 Potassium 4.4 Chloride 107 Carbon Dioxide 32 H Anion Gap 6 BUN 89 H D Creatinine 1.69 H Est GFR ( Amer) 36 L Est GFR (Non-Af Amer) 30 L Glucose 54 L Calcium 9.6 Magnesium 11/26/17 13:48 NT-Pro-B Natriuret Pep 1440 H Impressions: Chest X-Ray 11/25/17 21:27 IMPRESSION: Stable radiographic appearance of the chest demonstrating cardiomegaly and mild central vascular congestion. Toe X-Ray 11/25/17 21:39 IMPRESSION: Soft tissue irregularity of the great toe without definite periosteal reaction to suggest osteomyelitis. This is seen in the setting of severe osteopenia and a healed fracture deformity of the 5th metatarsal. Assessment & Plan - Diagnosis (1) Acute kidney injury superimposed on chronic kidney disease Is this a current diagnosis for this admission?: Yes Plan: Lasix and metolazone held off. Continue IV fluids and trend kidney function. Improving. Renal not available for consultation (2) C. difficile diarrhea Is this a current diagnosis for this admission?: Yes Plan: Continue flagyl and vancomycin oral. Continue lactobacillus and Metamucil (3) Chronic diastolic (congestive) heart failure Is this a current diagnosis for this admission?: Yes Plan: Lasix and metolazone held off since now patient is volume contracted. Watch for decompensation (4) Influenza, pneumonia Is this a current diagnosis for this admission?: Yes Plan: Supportive. Patient made aware that cough may last for several weeks. Multiple antitussive medication had been ordered - Time Time Spent with patient: 15-24 minutes Medications reviewed and adjusted accordingly: Yes Anticipated discharge: Acute Rehab Within: within 72 hours - Inpatient Certification Based on my medical assessment, after consideration of the patient's comorbidities, presenting symptoms, or acuity I expect that the services needed warrant INPATIENT care.: Yes I certify that my determination is in accordance with my understanding of Medicare's requirements for reasonable and necessary INPATIENT services [42 CFR 412.3e].: Yes Medical Necessity: Need For IV Fluids
[2017-12-09] MEDS: ATORVASTATIN CALCIUM 20 MG TABLET PO SCH (22:56)
[2017-12-09] MEDS: FENOFIBRATE NANOCRYSTALLIZED 145 MG TABLET PO SCH (22:56)
[2017-12-09] MEDS: TRAZODONE HCL 50 MG TABLET PO SCH (22:57)
[2017-12-10] MEDS: NORMAL SALINE 1000 ML 1,000 ML IV PRN ×2 (00:04→07:20)
[2017-12-10] MEDS: ONDANSETRON 4 MG TAB.RAPDIS PO PRN ×2 (00:04→22:10)
[2017-12-10] MEDS: HEPARIN SOD (PORCINE) 5,000 UNIT/ML 1 ML SYRINGE SUBCUT SCH ×3 (06:48→23:54)
[2017-12-10] MEDS: LANSOPRAZOLE 15 MG TAB.RAP.DR PO SCH (06:48)
[2017-12-10] MEDS: VANCOMYCIN HCL INJ 500 MG VIAL PO SCH ×4 (06:48→23:54)
[2017-12-10] MEDS: LEVOTHYROXINE SODIUM 0.088 MG TABLET PO SCH (06:48)
[2017-12-10] MEDS: METRONIDAZOLE 500 MG TABLET PO SCH ×4 (06:48→23:53)
[2017-12-10] MEDS: PSYLLIUM SEED-SF 5.85 GM PACKET PO SCH ×3 (07:12→23:52)
[2017-12-10 07:29] LABS: BLOOD UREA NITROGEN 70 mg/dL (7-20); CALCIUM 9.5 mg/dL (8.4-10.2); CHLORIDE 112 mmol/L (98-107); GLUCOSE 154 mg/dL (75-110); POTASSIUM 4.4 mmol/L (3.6-5.0)
[2017-12-10 07:37] LABS: ANION GAP 5 (5-19); CARBON DIOXIDE 31 mmol/L (22-30); SODIUM 147.7 mmol/L (137-145)
[2017-12-10] MEDS: BUDESONIDE NEB 0.5 MG/2 ML AMPUL NEB SCH ×2 (08:17→19:31)
[2017-12-10] MEDS: IPRATROPIUM/ALBUTEROL 0.5-2.5 MG/3 ML AMPUL NEB SCH ×3 (08:17→19:30)
[2017-12-10] MEDS: INSULIN LISPRO 100 UNIT/ML 3 ML VIAL SUBCUT SCH ×3 (08:46→16:08)
[2017-12-10] MEDS: CARVEDILOL 12.5 MG TABLET PO SCH ×2 (10:38→23:53)
[2017-12-10] MEDS: OXYMETAZOLINE HCL 0.05% NASAL SPRAY 15 ML BOTTLE NASL SCH (10:38)
[2017-12-10] MEDS: AMLODIPINE BESYLATE 10 MG TABLET PO SCH (10:38)
[2017-12-10] MEDS: FLUTICASONE NASAL SPRAY 50 MCG/SPRY 120 SPRAY/16 GM NASL SCH (10:38)
[2017-12-10] MEDS: ASPIRIN 81 MG TABLET, CHEWABLE PO SCH (10:38)
[2017-12-10] MEDS: CETIRIZINE 10 MG TABLET PO SCH (10:39)
[2017-12-10] MEDS: GUAIFENESIN 600 MG TABLET.SA PO SCH ×2 (10:39→23:53)
[2017-12-10] MEDS: INSULIN GLARGINE,HUM.REC.ANLOG 1,000 UNIT/10 ML UNIT SUBCUT SCH (10:39)
[2017-12-10] MEDS: FERROUS SULFATE 325 MG TABLET PO SCH ×2 (10:39→17:33)
[2017-12-10] MEDS ORDERED: LEVALBUTEROL HCL NEB 1.25 MG/3 ML AMPUL NEB PRN (13:36)
[2017-12-10] MEDS: DEXTROSE 5%-NORMAL SALINE 1,000 ML IV PRN ×2 (14:11→23:54)
--- NOTE | 2017-12-10 18:11 | PDOC PROGRESS REPORT ---
Subjective Progress Note for:: 12/10/17 Subjective:: Patient is feeling better, still having watery yellow diarrhea though less frequently, she is breathing better, no fevers or chills, her appetite is poor, her sugars have been pretty low and insulin has been held. reView of systems: Complete review of systems performed and is positive as per HPI Laboratory studies have been reviewed by me and significant diagnostics have been reviewed by me. Reason For Visit: GUDELIA DM PNEUMONIA Physical Exam Vital Signs: Temp Pulse Resp BP Pulse Ox 98.2 F 72 20 115/41 L 94 12/10/17 15:53 12/10/17 15:53 12/10/17 15:53 12/10/17 15:53 12/10/17 15:53 Intake & Output 12/09/17 12/10/17 12/11/17 06:59 06:59 06:59 Intake Total 5867 4285 1339 Balance 5867 4285 1339 Weight 138.4 kg 142.1 kg General appearance: PRESENT: no acute distress, cooperative Head exam: PRESENT: atraumatic, normocephalic Eye exam: PRESENT: conjunctiva pink. ABSENT: scleral icterus Mouth exam: PRESENT: moist Respiratory exam: PRESENT: clear to auscultation emperatriz, decreased breath sounds, unlabored. ABSENT: tachypnea Cardiovascular exam: PRESENT: RRR. ABSENT: systolic murmur Pulses: PRESENT: normal radial pulses GI/Abdominal exam: PRESENT: normal bowel sounds, soft. ABSENT: distended, tenderness Rectal exam: PRESENT: deferred Extremities exam: ABSENT: tenderness Neurological exam: PRESENT: alert, awake, oriented to person, oriented to place , oriented to time Psychiatric exam: PRESENT: appropriate affect. ABSENT: agitated, anxious Skin exam: PRESENT: dry, warm Results Laboratory Results: 12/09/17 04:04 12/10/17 06:58 12/10/17 06:58 Sodium 147.7 H Potassium 4.4 Chloride 112 H Carbon Dioxide 31 H Anion Gap 5 BUN 70 H Creatinine 1.38 H Est GFR ( Amer) 46 L Est GFR (Non-Af Amer) 38 L Glucose 154 H Calcium 9.5 11/26/17 13:48 NT-Pro-B Natriuret Pep 1440 H Impressions: Chest X-Ray 11/25/17 21:27 IMPRESSION: Stable radiographic appearance of the chest demonstrating cardiomegaly and mild central vascular congestion. Toe X-Ray 11/25/17 21:39 IMPRESSION: Soft tissue irregularity of the great toe without definite periosteal reaction to suggest osteomyelitis. This is seen in the setting of severe osteopenia and a healed fracture deformity of the 5th metatarsal. Assessment & Plan - Diagnosis (1) Acute kidney injury superimposed on chronic kidney disease Is this a current diagnosis for this admission?: Yes Plan: Improving, continue to monitor as we treat her with IV fluids and hold her diuretics. Try to avoid nephrotoxins. (2) C. difficile diarrhea Is this a current diagnosis for this admission?: Yes (3) Influenza, pneumonia Is this a current diagnosis for this admission?: Yes Plan: Improving, continue current care. (4) VRE (vancomycin-resistant Enterococci) Is this a current diagnosis for this admission?: Yes Plan: Patient is asymptomatic in terms of urinary tract infection. We are holding off on treatment. Continue to monitor closely and reculture urine if indicated. (5) Morbid obesity with BMI of 45.0-49.9, adult Is this a current diagnosis for this admission?: Yes Plan: Weight loss indicated. - Time Time Spent with patient: 25-34 minutes Medications reviewed and adjusted accordingly: Yes Anticipated discharge: Home with Homehealth - Inpatient Certification Based on my medical assessment, after consideration of the patient's comorbidities, presenting symptoms, or acuity I expect that the services needed warrant INPATIENT care.: Yes I certify that my determination is in accordance with my understanding of Medicare's requirements for reasonable and necessary INPATIENT services [42 CFR 412.3e].: Yes Medical Necessity: Significant Comorbidiites Make Outpatient Treatment Too Risky , Need Close Monitoring Due to Risk of Patient Decompensation, Need For IV Fluids
[2017-12-10 19:16] LABS: HEMATOCRIT 32.8 % (36.0-47.0); HEMOGLOBIN 10.6 g/dL (12.0-15.5); MEAN CORPUSCULAR HEMOGLOBIN 30.7 pg (27.0-33.4); MEAN CORPUSCULAR HGB CONC 32.2 g/dL (32.0-36.0); MEAN CORPUSCULAR VOLUME 95 fl (80-97); PLATELET COUNT 188 10^3/uL (150-450); RED BLOOD COUNT 3.44 10^6/uL (3.72-5.28); RED CELL DISTRIBUTION WIDTH 14.8 % (11.5-14.0); WHITE BLOOD COUNT 7.1 10^3/uL (4.0-10.5)
[2017-12-10 19:28] LABS: BLOOD UREA NITROGEN 63 mg/dL (7-20); CALCIUM 9.7 mg/dL (8.4-10.2); CARBON DIOXIDE 31 mmol/L (22-30); CHLORIDE 113 mmol/L (98-107); GLUCOSE 101 mg/dL (75-110); POTASSIUM 4.8 mmol/L (3.6-5.0); SODIUM 147.8 mmol/L (137-145)
[2017-12-10 19:35] LABS: ANION GAP 4 (5-19)
[2017-12-10] MEDS: HYDROCODONE BIT/HOMATROPINE 5-1.5 MG TABLET PO PRN (23:50)
[2017-12-10] MEDS: FENOFIBRATE NANOCRYSTALLIZED 145 MG TABLET PO SCH (23:52)
[2017-12-10] MEDS: TRAZODONE HCL 50 MG TABLET PO SCH (23:52)
[2017-12-10] MEDS: ATORVASTATIN CALCIUM 20 MG TABLET PO SCH (23:53)
[2017-12-11] MEDS: FLUTICASONE NASAL SPRAY 50 MCG/SPRY 120 SPRAY/16 GM NASL SCH ×3 (00:06→22:15)
[2017-12-11] MEDS: OXYMETAZOLINE HCL 0.05% NASAL SPRAY 15 ML BOTTLE NASL SCH ×2 (00:06→09:57)
[2017-12-11] MEDS: HEPARIN SOD (PORCINE) 5,000 UNIT/ML 1 ML SYRINGE SUBCUT SCH ×3 (06:49→22:16)
[2017-12-11] MEDS: HYDROCODONE BIT/HOMATROPINE 5-1.5 MG TABLET PO PRN (06:49)
[2017-12-11] MEDS: PSYLLIUM SEED-SF 5.85 GM PACKET PO SCH ×3 (06:49→22:09)
[2017-12-11] MEDS: METRONIDAZOLE 500 MG TABLET PO SCH ×4 (06:49→22:14)
[2017-12-11] MEDS: VANCOMYCIN HCL INJ 500 MG VIAL PO SCH ×4 (06:49→22:14)
[2017-12-11] MEDS: LANSOPRAZOLE 15 MG TAB.RAP.DR PO SCH (06:49)
[2017-12-11] MEDS: LEVOTHYROXINE SODIUM 0.088 MG TABLET PO SCH (06:49)
[2017-12-11] MEDS: IPRATROPIUM/ALBUTEROL 0.5-2.5 MG/3 ML AMPUL NEB SCH ×3 (08:01→19:31)
[2017-12-11] MEDS: BUDESONIDE NEB 0.5 MG/2 ML AMPUL NEB SCH ×2 (08:01→19:31)
[2017-12-11] MEDS: INSULIN LISPRO 100 UNIT/ML 3 ML VIAL SUBCUT SCH ×2 (08:22→12:18)
[2017-12-11] MEDS: ASPIRIN 81 MG TABLET, CHEWABLE PO SCH (09:56)
[2017-12-11] MEDS: AMLODIPINE BESYLATE 10 MG TABLET PO SCH (09:56)
[2017-12-11] MEDS: FERROUS SULFATE 325 MG TABLET PO SCH ×2 (09:57→17:19)
[2017-12-11] MEDS: GUAIFENESIN 600 MG TABLET.SA PO SCH ×2 (09:57→22:09)
[2017-12-11] MEDS: CETIRIZINE 10 MG TABLET PO SCH (09:57)
[2017-12-11] MEDS: CARVEDILOL 12.5 MG TABLET PO SCH ×2 (09:57→22:16)
[2017-12-11] MEDS: DEXTROSE 5%-NORMAL SALINE 1,000 ML IV PRN (09:57)
[2017-12-11] MEDS ORDERED: DEXTROSE 5%-LACTATED RINGERS 1,000 ML IV SCH (12:30)
--- NOTE | 2017-12-11 17:05 | PDOC PROGRESS REPORT ---
Subjective Progress Note for:: 12/11/17 Subjective:: Patient thinks she is feeling better today. Her breathing is better. Her chest congestion is better. Her diarrhea has improved. Her appetite remains poor. She is still weak. No new acute pain. Chest pain, headache or vision changes. She is sleeping a lot. No tingling or numbness. She states she is waiting for her boot to be [facility] so she can work with physical therapy. She is motivated to get stronger and get out of the hospital. Remainder of review of systems performed and is negative. Reviewed the patient's labs and diagnostic studies today Reason For Visit: GUDELIA,PNEUMONIA, C. difficile Physical Exam Vital Signs: Temp Pulse Resp BP Pulse Ox 97.8 F 74 19 115/54 L 99 12/11/17 15:30 12/11/17 15:30 12/11/17 15:30 12/11/17 15:30 12/11/17 15:30 Intake & Output 12/10/17 12/11/17 12/12/17 06:59 06:59 06:59 Intake Total 4285 3364 Balance 4285 3364 Weight 142.1 kg 144.4 kg General appearance: PRESENT: no acute distress, cooperative Head exam: PRESENT: atraumatic, normocephalic Eye exam: PRESENT: conjunctiva pink, EOMI Mouth exam: PRESENT: moist Respiratory exam: PRESENT: clear to auscultation emperatriz, unlabored. ABSENT: rales , wheezes Cardiovascular exam: PRESENT: RRR Vascular exam: PRESENT: normal capillary refill GI/Abdominal exam: PRESENT: normal bowel sounds, soft. ABSENT: distended, tenderness Rectal exam: PRESENT: deferred Neurological exam: PRESENT: alert, awake, oriented to person, oriented to place , oriented to situation Psychiatric exam: ABSENT: anxious Skin exam: PRESENT: dry, warm - Right great toe with scabbed over uninfected lesion Results Laboratory Results: 12/10/17 18:50 12/10/17 18:50 12/10/17 12/10/17 18:50 18:50 WBC 7.1 RBC 3.44 L Hgb 10.6 L Hct 32.8 L MCV 95 MCH 30.7 MCHC 32.2 RDW 14.8 H Plt Count 188 Sodium 147.8 H Potassium 4.8 Chloride 113 H Carbon Dioxide 31 H Anion Gap 4 L BUN 63 H Creatinine 1.23 Est GFR ( Amer) 53 L Est GFR (Non-Af Amer) 43 L Glucose 101 Calcium 9.7 11/26/17 13:48 NT-Pro-B Natriuret Pep 1440 H Impressions: Chest X-Ray 11/25/17 21:27 IMPRESSION: Stable radiographic appearance of the chest demonstrating cardiomegaly and mild central vascular congestion. Toe X-Ray 11/25/17 21:39 IMPRESSION: Soft tissue irregularity of the great toe without definite periosteal reaction to suggest osteomyelitis. This is seen in the setting of severe osteopenia and a healed fracture deformity of the 5th metatarsal. Assessment & Plan - Diagnosis (1) Acute kidney injury superimposed on chronic kidney disease Is this a current diagnosis for this admission?: Yes Plan: This has improved. Her appetite has been poor. I think she is intravascularly dry and she is now on a low-rate of IV fluids, BUN and creatinine are improved today. Will recheck again tomorrow. (2) C. difficile diarrhea Is this a current diagnosis for this admission?: Yes Plan: Diarrhea improving. Continue Vanco and Flagyl. (3) Influenza, pneumonia Is this a current diagnosis for this admission?: Yes Plan: Resolved. Treatment completed. (4) VRE (vancomycin-resistant Enterococci) Is this a current diagnosis for this admission?: Yes Plan: Patient has grown several multidrug-resistant organisms in her urine. She is asymptomatic. At this time I am going to repeat her urine culture due to continued lethargy nausea and poor appetite. (5) Morbid obesity with BMI of 45.0-49.9, adult Is this a current diagnosis for this admission?: Yes Plan: Patient does not seem motivated for weight loss. Continue to encourage her to work with physical therapy and will work on dietary counseling. - Time Time Spent with patient: 25-34 minutes Medications reviewed and adjusted accordingly: Yes - Inpatient Certification Based on my medical assessment, after consideration of the patient's comorbidities, presenting symptoms, or acuity I expect that the services needed warrant INPATIENT care.: Yes I certify that my determination is in accordance with my understanding of Medicare's requirements for reasonable and necessary INPATIENT services [42 CFR 412.3e].: Yes Medical Necessity: Significant Comorbidiites Make Outpatient Treatment Too Risky , Need Close Monitoring Due to Risk of Patient Decompensation, Risk of Complication if Not Cared For in Hospital
[2017-12-11 18:23] LABS: HEMATOCRIT 31.1 % (36.0-47.0); HEMOGLOBIN 10.4 g/dL (12.0-15.5); MEAN CORPUSCULAR HEMOGLOBIN 31.7 pg (27.0-33.4); MEAN CORPUSCULAR HGB CONC 33.4 g/dL (32.0-36.0); MEAN CORPUSCULAR VOLUME 95 fl (80-97); PLATELET COUNT 169 10^3/uL (150-450); RED BLOOD COUNT 3.27 10^6/uL (3.72-5.28); RED CELL DISTRIBUTION WIDTH 14.5 % (11.5-14.0); WHITE BLOOD COUNT 6.8 10^3/uL (4.0-10.5)
[2017-12-11 18:39] LABS: CALCIUM 9.8 mg/dL (8.4-10.2); GLUCOSE 140 mg/dL (75-110)
[2017-12-11 18:53] LABS: CARBON DIOXIDE 30 mmol/L (22-30); CHLORIDE 115 mmol/L (98-107); POTASSIUM 4.3 mmol/L (3.6-5.0); SODIUM 148.4 mmol/L (137-145)
[2017-12-11 19:02] LABS: BLOOD UREA NITROGEN 39 mg/dL (7-20)
[2017-12-11 19:21] LABS: ANION GAP 3 (5-19)
[2017-12-11] MEDS: TRAZODONE HCL 50 MG TABLET PO SCH (22:09)
[2017-12-11] MEDS: ATORVASTATIN CALCIUM 20 MG TABLET PO SCH (22:09)
[2017-12-11] MEDS: FENOFIBRATE NANOCRYSTALLIZED 145 MG TABLET PO SCH (22:09)
[2017-12-12] MEDS: LEVOTHYROXINE SODIUM 0.088 MG TABLET PO SCH (05:47)
[2017-12-12] MEDS: METRONIDAZOLE 500 MG TABLET PO SCH ×4 (05:47→23:35)
[2017-12-12] MEDS: HEPARIN SOD (PORCINE) 5,000 UNIT/ML 1 ML SYRINGE SUBCUT SCH ×3 (05:47→21:42)
[2017-12-12] MEDS: LANSOPRAZOLE 15 MG TAB.RAP.DR PO SCH (05:47)
[2017-12-12] MEDS: PSYLLIUM SEED-SF 5.85 GM PACKET PO SCH ×3 (05:48→21:42)
[2017-12-12] MEDS: VANCOMYCIN HCL INJ 500 MG VIAL PO SCH ×4 (05:48→23:35)
[2017-12-12] MEDS: IPRATROPIUM/ALBUTEROL 0.5-2.5 MG/3 ML AMPUL NEB SCH ×3 (07:55→20:41)
[2017-12-12] MEDS: BUDESONIDE NEB 0.5 MG/2 ML AMPUL NEB SCH ×2 (07:56→20:41)
[2017-12-12] MEDS: CETIRIZINE 10 MG TABLET PO SCH (08:43)
[2017-12-12] MEDS: ASPIRIN 81 MG TABLET, CHEWABLE PO SCH (08:47)
[2017-12-12] MEDS: AMLODIPINE BESYLATE 10 MG TABLET PO SCH (08:47)
[2017-12-12] MEDS: GUAIFENESIN 600 MG TABLET.SA PO SCH ×2 (08:48→21:38)
[2017-12-12] MEDS: FLUTICASONE NASAL SPRAY 50 MCG/SPRY 120 SPRAY/16 GM NASL SCH ×2 (08:48→21:40)
[2017-12-12] MEDS: FERROUS SULFATE 325 MG TABLET PO SCH ×2 (08:48→17:22)
[2017-12-12] MEDS: CARVEDILOL 12.5 MG TABLET PO SCH ×2 (08:48→21:40)
--- NOTE | 2017-12-12 15:52 | PDOC PROGRESS REPORT ---
Subjective Progress Note for:: 12/12/17 Subjective:: Patient is very teary today. She states that she is tired of being sick. She is also really lonely. No new difficulty breathing, no new aches or pains she was able to work with physical therapy today. Tried to perform review of systems the patient was too teary and was not really answering many questions. Aside from what have already reported she states that her appetite may be improving some, she is able to drink without emesis, she thinks her diarrhea frequency has increased. Labs and pertinent diagnostic studies have been reviewed by me today. Reason For Visit: GUDELIA DM PNEUMONIA Physical Exam Vital Signs: Temp Pulse Resp BP Pulse Ox 98.0 F 86 18 158/74 H 100 12/12/17 11:47 12/12/17 13:08 12/12/17 13:08 12/12/17 11:47 12/12/17 13:08 Intake & Output 12/11/17 12/12/17 12/13/17 06:59 06:59 06:59 Intake Total 3364 2500 Balance 3364 2500 Weight 144.4 kg 147.1 kg General appearance: PRESENT: mild distress, morbidly obese Head exam: PRESENT: atraumatic, normocephalic Eye exam: PRESENT: conjunctiva pink, EOMI Ear exam: PRESENT: normal external ear exam. ABSENT: bleeding Mouth exam: PRESENT: neck supple Neck exam: ABSENT: lymphadenopathy Respiratory exam: PRESENT: decreased breath sounds, wheezes Cardiovascular exam: PRESENT: RRR. ABSENT: systolic murmur GI/Abdominal exam: PRESENT: soft. ABSENT: diminished bowel sounds, guarding, normal bowel sounds, tenderness Rectal exam: PRESENT: deferred, other - Per staff she just now had a soft green brown stool without blood Extremities exam: ABSENT: full ROM Musculoskeletal exam: ABSENT: ambulatory Neurological exam: PRESENT: alert, awake, oriented to person, oriented to place , oriented to situation, CN II-XII grossly intact Psychiatric exam: PRESENT: depressed Focused psych exam: ABSENT: catatonic, delusional Skin exam: PRESENT: dry, warm Results Laboratory Results: 12/11/17 17:50 12/11/17 17:50 12/11/17 12/11/17 17:50 17:50 WBC 6.8 RBC 3.27 L Hgb 10.4 L Hct 31.1 L MCV 95 MCH 31.7 MCHC 33.4 RDW 14.5 H Plt Count 169 Sodium 148.4 H Potassium 4.3 Chloride 115 H Carbon Dioxide 30 Anion Gap 3 L BUN 39 H D Creatinine 1.21 Est GFR ( Amer) 54 L Est GFR (Non-Af Amer) 44 L Glucose 140 H Calcium 9.8 11/26/17 13:48 NT-Pro-B Natriuret Pep 1440 H Impressions: Chest X-Ray 11/25/17 21:27 IMPRESSION: Stable radiographic appearance of the chest demonstrating cardiomegaly and mild central vascular congestion. Toe X-Ray 11/25/17 21:39 IMPRESSION: Soft tissue irregularity of the great toe without definite periosteal reaction to suggest osteomyelitis. This is seen in the setting of severe osteopenia and a healed fracture deformity of the 5th metatarsal. Assessment & Plan - Diagnosis (1) Acute kidney injury superimposed on chronic kidney disease Is this a current diagnosis for this admission?: Yes Plan: Renal function has improved significantly. Will check again tomorrow. Her creatinine was down to normal and her BUN is still elevated. Should her IV fluids have been stopped as she has been eating and drinking a little bit better. Will check labs off of IV fluids to see how she is doing on her own. Diuresis is still on hold and this will need to be restarted once her renal function is stable. She also may have a urinary tract infection though colonization is also possible. She is asymptomatic. Will recheck urine culture. (2) C. difficile diarrhea Is this a current diagnosis for this admission?: Yes Plan: Stool frequency had been improving until today when she has had multiple soft stools. The color of the stool seems to be normalizing. We will continue Vanco and Flagyl and monitor. No abdominal pain. No fever or chills. (3) Influenza, pneumonia Is this a current diagnosis for this admission?: Yes Plan: Treatment completed. Continue to provide supportive respiratory care. (4) VRE (vancomycin-resistant Enterococci) Is this a current diagnosis for this admission?: Yes Plan: This was found in the urine culture. Urine culture repeat is pending. Patient is asymptomatic without other signs or symptoms of urinary tract infection. CBC will be checked tomorrow. (5) Morbid obesity with BMI of 45.0-49.9, adult Is this a current diagnosis for this admission?: Yes Plan: Patient would very much benefit from weight loss. She is to anxious and sad to discuss this today. We will try to do weight loss and dietary counseling prior to discharge. (6) Obstructive sleep apnea Is this a current diagnosis for this admission?: Yes Plan: Patient has her CPAP and is using it as needed. - Time Time Spent with patient: 25-34 minutes Medications reviewed and adjusted accordingly: Yes Within: within 48 hours - Inpatient Certification Based on my medical assessment, after consideration of the patient's comorbidities, presenting symptoms, or acuity I expect that the services needed warrant INPATIENT care.: Yes I certify that my determination is in accordance with my understanding of Medicare's requirements for reasonable and necessary INPATIENT services [42 CFR 412.3e].: Yes Medical Necessity: Significant Comorbidiites Make Outpatient Treatment Too Risky , Need Close Monitoring Due to Risk of Patient Decompensation
[2017-12-12] MEDS: ONDANSETRON 4 MG TAB.RAPDIS PO PRN (17:23)
[2017-12-12] MEDS: NYSTATIN 500000 UNIT/5 ML UDCUP PO SCH ×2 (17:55→21:38)
[2017-12-12] MEDS: FENOFIBRATE NANOCRYSTALLIZED 145 MG TABLET PO SCH (21:38)
[2017-12-12] MEDS: TRAZODONE HCL 50 MG TABLET PO SCH (21:40)
[2017-12-12] MEDS: ATORVASTATIN CALCIUM 20 MG TABLET PO SCH (21:40)
[2017-12-12] MEDS: ACETAMINOPHEN 325 MG TABLET PO PRN (23:35)
[2017-12-13] MEDS: PSYLLIUM SEED-SF 5.85 GM PACKET PO SCH ×2 (05:03→17:25)
[2017-12-13] MEDS: HEPARIN SOD (PORCINE) 5,000 UNIT/ML 1 ML SYRINGE SUBCUT SCH ×2 (05:58→17:25)
[2017-12-13] MEDS: LANSOPRAZOLE 15 MG TAB.RAP.DR PO SCH (06:10)
[2017-12-13] MEDS: LEVOTHYROXINE SODIUM 0.088 MG TABLET PO SCH (06:11)
[2017-12-13] MEDS: VANCOMYCIN HCL INJ 500 MG VIAL PO SCH ×3 (06:11→17:26)
[2017-12-13] MEDS: IPRATROPIUM/ALBUTEROL 0.5-2.5 MG/3 ML AMPUL NEB SCH ×3 (07:52→20:19)
[2017-12-13] MEDS: BUDESONIDE NEB 0.5 MG/2 ML AMPUL NEB SCH ×2 (07:52→20:19)
[2017-12-13] MEDS: FLUTICASONE NASAL SPRAY 50 MCG/SPRY 120 SPRAY/16 GM NASL SCH ×2 (11:53→23:59)
[2017-12-13] MEDS: GUAIFENESIN 600 MG TABLET.SA PO SCH ×2 (11:54→23:59)
[2017-12-13] MEDS: NYSTATIN 500000 UNIT/5 ML UDCUP PO SCH ×4 (11:54→23:59)
[2017-12-13] MEDS: CARVEDILOL 12.5 MG TABLET PO SCH ×2 (11:55→23:59)
[2017-12-13] MEDS: ASPIRIN 81 MG TABLET, CHEWABLE PO SCH (11:56)
[2017-12-13] MEDS: CETIRIZINE 10 MG TABLET PO SCH (11:56)
[2017-12-13] MEDS: FERROUS SULFATE 325 MG TABLET PO SCH ×2 (11:56→17:26)
[2017-12-13] MEDS: AMLODIPINE BESYLATE 10 MG TABLET PO SCH (11:56)
--- NOTE | 2017-12-13 19:51 | PDOC PROGRESS REPORT ---
Subjective Progress Note for:: 12/13/17 Subjective:: She states she is feeling better today. She is eating a little bit better. Her son stayed with her last night which made her less depressed. Diarrhea frequency is decreasing. No bleeding. No chest pain or shortness of breath. Remainder of review of systems is performed and is negative. I have reviewed her labs and pertinent diagnostic studies today. Reason For Visit: GUDELIA DM PNEUMONIA Physical Exam Vital Signs: Temp Pulse Resp BP Pulse Ox 99.0 F 79 16 163/64 H 97 12/13/17 15:25 12/13/17 15:25 12/13/17 15:25 12/13/17 15:25 12/13/17 15:25 Intake & Output 12/12/17 12/13/17 12/14/17 06:59 06:59 06:59 Intake Total 2500 991 110 Balance 2500 991 110 Weight 147.1 kg 144.7 kg General appearance: PRESENT: no acute distress, morbidly obese Head exam: PRESENT: atraumatic, normocephalic Eye exam: PRESENT: conjunctiva pink Mouth exam: PRESENT: moist Respiratory exam: PRESENT: decreased breath sounds, unlabored, wheezes, other - CPAP is in place. Cardiovascular exam: PRESENT: RRR GI/Abdominal exam: PRESENT: normal bowel sounds, soft. ABSENT: distended, guarding, tenderness Rectal exam: PRESENT: deferred Musculoskeletal exam: PRESENT: other - Patient is bedbound at baseline. Neurological exam: PRESENT: alert, awake, oriented to person, oriented to place , oriented to situation, CN II-XII grossly intact Psychiatric exam: PRESENT: flat affect. ABSENT: agitated, anxious Skin exam: PRESENT: dry, intact, warm Results Laboratory Results: 12/11/17 17:50 12/11/17 17:50 11/26/17 13:48 NT-Pro-B Natriuret Pep 1440 H Impressions: Chest X-Ray 11/25/17 21:27 IMPRESSION: Stable radiographic appearance of the chest demonstrating cardiomegaly and mild central vascular congestion. Toe X-Ray 11/25/17 21:39 IMPRESSION: Soft tissue irregularity of the great toe without definite periosteal reaction to suggest osteomyelitis. This is seen in the setting of severe osteopenia and a healed fracture deformity of the 5th metatarsal. Assessment & Plan - Diagnosis (1) Acute kidney injury superimposed on chronic kidney disease Is this a current diagnosis for this admission?: Yes Plan: Improved, cont current care, if diarrhea worsens may need to follow renal function again. (2) C. difficile diarrhea Is this a current diagnosis for this admission?: Yes Plan: today diarrhea improved again, may be able to discharge tomorrow (3) Influenza, pneumonia Is this a current diagnosis for this admission?: Yes Plan: treated (4) VRE (vancomycin-resistant Enterococci) Is this a current diagnosis for this admission?: Yes (5) Morbid obesity with BMI of 45.0-49.9, adult Is this a current diagnosis for this admission?: Yes Plan: weight loss unrealistic, bedbound at baseline, will not work with PT (6) Obstructive sleep apnea Is this a current diagnosis for this admission?: Yes Plan: cont cpap - Time Time Spent with patient: 25-34 minutes Anticipated discharge: Home Within: within 48 hours - possible discharge back to facility tomorrow - Inpatient Certification Based on my medical assessment, after consideration of the patient's comorbidities, presenting symptoms, or acuity I expect that the services needed warrant INPATIENT care.: Yes I certify that my determination is in accordance with my understanding of Medicare's requirements for reasonable and necessary INPATIENT services [42 CFR 412.3e].: Yes Medical Necessity: Significant Comorbidiites Make Outpatient Treatment Too Risky , Need Close Monitoring Due to Risk of Patient Decompensation
[2017-12-13] MEDS: FENOFIBRATE NANOCRYSTALLIZED 145 MG TABLET PO SCH (23:58)
[2017-12-13] MEDS: ATORVASTATIN CALCIUM 20 MG TABLET PO SCH (23:58)
[2017-12-13] MEDS: TRAZODONE HCL 50 MG TABLET PO SCH (23:59)
[2017-12-14] MEDS: HEPARIN SOD (PORCINE) 5,000 UNIT/ML 1 ML SYRINGE SUBCUT SCH ×4 (00:16→23:34)
[2017-12-14] MEDS: PSYLLIUM SEED-SF 5.85 GM PACKET PO SCH ×4 (00:17→23:35)
[2017-12-14] MEDS: LANSOPRAZOLE 15 MG TAB.RAP.DR PO SCH (07:04)
[2017-12-14] MEDS: LEVOTHYROXINE SODIUM 0.088 MG TABLET PO SCH (07:04)
[2017-12-14] MEDS: VANCOMYCIN HCL INJ 500 MG VIAL PO SCH ×5 (07:05→23:34)
[2017-12-14] MEDS: IPRATROPIUM/ALBUTEROL 0.5-2.5 MG/3 ML AMPUL NEB SCH ×3 (07:41→20:26)
[2017-12-14] MEDS: BUDESONIDE NEB 0.5 MG/2 ML AMPUL NEB SCH ×2 (07:42→20:25)
[2017-12-14] MEDS: GUAIFENESIN 600 MG TABLET.SA PO SCH ×2 (10:27→23:33)
[2017-12-14] MEDS: CARVEDILOL 12.5 MG TABLET PO SCH ×2 (10:27→23:33)
[2017-12-14] MEDS: FERROUS SULFATE 325 MG TABLET PO SCH ×2 (10:28→17:41)
[2017-12-14] MEDS: AMLODIPINE BESYLATE 10 MG TABLET PO SCH (10:28)
[2017-12-14] MEDS: ASPIRIN 81 MG TABLET, CHEWABLE PO SCH (10:28)
[2017-12-14] MEDS: CETIRIZINE 10 MG TABLET PO SCH (10:29)
[2017-12-14] MEDS: FLUTICASONE NASAL SPRAY 50 MCG/SPRY 120 SPRAY/16 GM NASL SCH ×2 (10:29→23:31)
[2017-12-14] MEDS: NYSTATIN 500000 UNIT/5 ML UDCUP PO SCH ×4 (10:37→23:33)
--- NOTE | 2017-12-14 18:46 | PDOC PROGRESS REPORT ---
Subjective Progress Note for:: 12/14/17 Subjective:: 67-year-old female presented to the ER with C. difficile diarrhea acute renal failure superimposed on chronic kidney disease, urinary tract infection due to Proteus and VRE. Reason For Visit: GUDELIA DM PNEUMONIA Physical Exam Vital Signs: Temp Pulse Resp BP Pulse Ox 98.4 F 72 16 152/69 H 97 12/14/17 14:38 12/14/17 14:38 12/14/17 14:38 12/14/17 14:38 12/14/17 14:38 Intake & Output 12/13/17 12/14/17 12/15/17 06:59 06:59 06:59 Intake Total 991 413 0 Balance 991 413 0 Weight 144.7 kg 146.9 kg General appearance: PRESENT: no acute distress, obese Respiratory exam: PRESENT: symmetrical, unlabored Cardiovascular exam: PRESENT: RRR GI/Abdominal exam: PRESENT: normal bowel sounds, soft. ABSENT: tenderness Rectal exam: PRESENT: deferred Neurological exam: PRESENT: alert, altered, awake Psychiatric exam: PRESENT: appropriate affect Results Laboratory Results: 12/11/17 17:50 12/11/17 17:50 12/12/17 21:25 Catheterized Urine Urine Culture - Final Proteus Mirabilis 11/26/17 13:48 NT-Pro-B Natriuret Pep 1440 H Impressions: Chest X-Ray 11/25/17 21:27 IMPRESSION: Stable radiographic appearance of the chest demonstrating cardiomegaly and mild central vascular congestion. Toe X-Ray 11/25/17 21:39 IMPRESSION: Soft tissue irregularity of the great toe without definite periosteal reaction to suggest osteomyelitis. This is seen in the setting of severe osteopenia and a healed fracture deformity of the 5th metatarsal. Assessment & Plan - Diagnosis (1) Acute kidney injury superimposed on chronic kidney disease Is this a current diagnosis for this admission?: Yes (2) C. difficile diarrhea Is this a current diagnosis for this admission?: Yes (3) ESBL (extended spectrum beta-lactamase) producing bacteria infection Is this a current diagnosis for this admission?: Yes (4) Influenza, pneumonia Is this a current diagnosis for this admission?: Yes (5) UTI (urinary tract infection) Qualifiers: Urinary tract infection type: acute cystitis Hematuria presence: without hematuria Qualified Code(s): N30.00 - Acute cystitis without hematuria Is this a current diagnosis for this admission?: Yes (6) VRE (vancomycin-resistant Enterococci) Is this a current diagnosis for this admission?: Yes (7) Anemia in chronic kidney disease (CKD) Qualifiers: Chronic kidney disease stage: stage 4 (severe) Qualified Code(s): N18.4 - Chronic kidney disease, stage 4 (severe); D63.1 - Anemia in chronic kidney disease; D63.1 - Anemia in chronic kidney disease Is this a current diagnosis for this admission?: Yes (8) C. difficile colitis Is this a current diagnosis for this admission?: Yes - Time Time Spent with patient: 35 or more minutes - Plan Summary Plan Summary: Completed a course of antibiotics. Continue current management for her C. difficile with oral vancomycin. Check renal function panel. Renal failure has resolved.
[2017-12-14] MEDS: ATORVASTATIN CALCIUM 20 MG TABLET PO SCH (23:32)
[2017-12-14] MEDS: FENOFIBRATE NANOCRYSTALLIZED 145 MG TABLET PO SCH (23:33)
[2017-12-14] MEDS: TRAZODONE HCL 50 MG TABLET PO SCH (23:33)
[2017-12-15] MEDS: LEVOTHYROXINE SODIUM 0.088 MG TABLET PO SCH (06:38)
[2017-12-15] MEDS: HEPARIN SOD (PORCINE) 5,000 UNIT/ML 1 ML SYRINGE SUBCUT SCH ×2 (06:38→18:18)
[2017-12-15] MEDS: LANSOPRAZOLE 15 MG TAB.RAP.DR PO SCH (06:39)
[2017-12-15] MEDS: PSYLLIUM SEED-SF 5.85 GM PACKET PO SCH ×2 (06:39→18:24)
[2017-12-15] MEDS: BUDESONIDE NEB 0.5 MG/2 ML AMPUL NEB SCH (07:42)
[2017-12-15] MEDS: IPRATROPIUM/ALBUTEROL 0.5-2.5 MG/3 ML AMPUL NEB SCH ×2 (07:42→14:53)
--- NOTE | 2017-12-15 11:28 | TRANSFER SUMMARY E ---
Transfer Summary NAME: LORETO JOSHI : 1950 AGE: 67Y ADMITTED: 11/26/2017 TRANSFERRED: 12/15/2017 CODE STATUS: FULL CODE. RECEIVING FACILITY: [facility]. CONSULTING SURGICALIST: Dr. Myers CONDITION: Fair. DISCHARGE DIAGNOSES: Includes: 1. Clostridium difficile colitis, has completed treatment. 2. Acute kidney injury, which is resolved. 3. Chronic kidney disease stage 3. 4. Anemia of chronic disease. 5. Influenza. 6. Sepsis, present on admission due to the patient's fever, tachypnea, tachycardia, and encephalopathy. 7. Metabolic encephalopathy, which is resolved. 8. Chronic obstructive pulmonary disease. 9. Sleep apnea with CPAP. 10. Diabetes mellitus type 2. 11. Hypothyroidism. 12. Obesity with a BMI of 54. 13. Hypertension. 14. Hyperlipidemia. 15. ESBL urinary tract infection, completed treatment. DISCHARGE MEDICATIONS: Include: 1. Lactobacillus acidophilus 1 capsule p.o. b.i.d. 2. Norvasc 10 mg p.o. daily. 3. Aspirin 81 mg p.o. daily. 4. Lipitor 20 mg p.o. q. hour of sleep. 5. Coreg 12.5 mg p.o. q. 12 hours. 6. Zyrtec 10 mg p.o. daily. 7. Tricor 145 mg p.o. q. hour of sleep. 8. Ferrous sulfate 325 mg p.o. b.i.d. 9. Flonase 2 sprays nasally q. 12 hours. 10. Glimepiride 10 mg p.o. q. a.m. 11. Mucinex 1200 mg p.o. q. 12 hours. 12. Xopenex 1.25 mg neb q. 4 hours p.r.n. 13. Synthroid 0.088 mg p.o. q. a.m. 14. Zofran ODT 4 mg p.o. q. 6 hours p.r.n. 15. Metamucil 1 packet p.o. q. 8 hours. 16. Trazodone 25 mg p.o. q. hour of sleep. DIET: Diabetic, heart healthy. ACTIVITY: As per rehab standards. CPAP at night. DIAGNOSTICS: Hematology obtained on 12/11/2017: WBCs are 6.8, hemoglobin is 10.4, hematocrit is 31.1, platelet count is 169,000. Venous blood gas obtained on 11/25/2017: PH is 7.47, PCO2 is 56.3, bicarb is 39.7. Chemistry obtained on 12/11/2017: Sodium is 148, potassium 4.3, chloride is 115, carbon dioxide 30, BUN 39, creatinine is 1.21. Glucose is 140, lactic acid 0.7, calcium 9.8, phosphorus 3.1, magnesium 1.9. BNP is 1440. Urinalysis obtained on 11/25/2017: Color yellow, appearance clear. PH is 6.0, specific gravity is 1.012. Protein negative, glucose negative, ketones negative, occult blood negative, nitrite negative, bilirubin negative, urobilinogen is negative. Leukocyte esterase is trace. WBCs are 14, RBCs 1, casts 1. Ascorbic acid is negative. Other body source obtained on 12/05/2017: Stool for occult blood is negative. Other body source obtained on 12/05/2017: Stool for WBCs negative. Serology obtained on 11/25/2017: Influenza A is positive. C. difficile toxin is positive. Blood cultures obtained on 11/25/2017 reveal no growth. Urine culture obtained on 11/25/2017 reveals ESBL. Urine culture obtained on 12/01/2017 reveals VRE. Stool culture obtained on 12/05/2017 reveals no growth. HISTORY OF PRESENT ILLNESS: The patient is a 67-year-old female with a past medical history of obstructive sleep apnea. The patient presented to the emergency department with a chief complaint of confusion. The patient was apparently altered at the [facility] facility, which prompted evaluation in the emergency department. The patient was found to have fever, rhonchi, and influenza A and evidence of a urinary tract infection. The patient was referred to the hospitalist for admission and management. The patient was also noted to have a right gangrenous toe. X-ray was not consistent with an osteomyelitis, but Surgery was consulted and the patient underwent debridement. HOSPITAL COURSE: The patient was admitted to continuous telemetry unit. The patient was started on antibiotic coverage, and the patient completed a full course of oral vancomycin for C. difficile and was started on a probiotic therapy. The patient was noted to have influenza A, was started on Tamiflu and completed the course of Tamiflu and no longer required isolation. The patient was provided a flutter valve to help with her post influenza secretions, which have helped with this. The patient is producing some sputum, but has remained afebrile. Her blood pressure has been in a good range. The patient has been oxygenating well and the patient is ready for discharge. The patient was noted to have a right gangrenous great toe for which was seen by Surgery, and the patient underwent debridement on 12/05/[address] Myers. The patient's urine culture did reveal an ESBL and the patient received a full course of antibiotic treatment of ertapenem for which the patient did tolerate well. The patient was also noted to be in acute renal failure on presentation with a presenting creatinine of 2.05. The patient was gently hydrated. Nephrotoxic medications were withheld or discontinued and the patient has trended down nicely to 1.2, which appears to be her baseline. PHYSICAL EXAMINATION: GENERAL: On examination, the patient is a well-developed, well-nourished 67-year-old female who is awake, alert, and oriented to person, place, time, and situation. She is verbal, conversational, does not appear to be in any acute distress. VITAL SIGNS: Temperature is 98.1, pulse 79, respirations 18, blood pressure is 158/54, oxygen saturation is 97% on her CPAP. SKIN: Warm and dry. No rash. She is not diaphoretic. HEENT: Pupils equal, round, and reactive to light and accommodation. Conjunctiva is pink. No evidence of JVP. CARDIOVASCULAR SYSTEM: Heart is regular. There is no murmur or rub. CHEST: Clear, symmetrical, unlabored. ABDOMEN: Soft, nontender, nondistended. BACK: No CVA tenderness or sacral edema. EXTREMITIES: No clubbing, cyanosis, or edema. PSYCHIATRIC: Appropriate affect. Pleasant mood. DISCHARGE PLANNIN. The patient will be received at [facility]. 2. The patient is advised to follow up with the primary care provider within 1-2 weeks for hospital followup. Time spent on this discharge, including assessment, plan, physical examination, patient education, review of records is 40 minutes. DICTATING PHYSICIAN: DANISHA MACIAS NP [id number] PHY#: [id number] ID: [id number] JOB#: [id number] ACCT: [id number] cc:DANISHA MACIAS PAIRER > [place]
[2017-12-15] MEDS: CLOBETASOL PROPIONATE 0.05% CREAM 15 GM TP PRN (11:46)
[2017-12-15] MEDS: AMLODIPINE BESYLATE 10 MG TABLET PO SCH (11:46)
[2017-12-15] MEDS: GUAIFENESIN 600 MG TABLET.SA PO SCH (11:47)
[2017-12-15] MEDS: CARVEDILOL 12.5 MG TABLET PO SCH (11:47)
[2017-12-15] MEDS: FERROUS SULFATE 325 MG TABLET PO SCH ×2 (11:47→18:25)
[2017-12-15] MEDS: ASPIRIN 81 MG TABLET, CHEWABLE PO SCH (11:48)
[2017-12-15] MEDS: NYSTATIN 500000 UNIT/5 ML UDCUP PO SCH ×3 (11:48→18:26)
[2017-12-15] MEDS: FLUTICASONE NASAL SPRAY 50 MCG/SPRY 120 SPRAY/16 GM NASL SCH (11:49)
[2017-12-15] MEDS: CETIRIZINE 10 MG TABLET PO SCH (11:57)
[2017-12-15 16:14] VITALS: BP 145/57
[2017-12-15] MEDS ORDERED: LACTOBACILLUS ACIDOPHILUS 250 MG TAB PO SCH (18:00)
[2017-12-15] MEDS: INSULIN LISPRO 100 UNIT/ML 3 ML VIAL SUBCUT PRN (18:26)
[2017-12-16] MEDS ORDERED: GLIMEPIRIDE 1 MG TABLET PO SCH (08:00)
== END 2017-12-15 20:28 | DRG 853 ==
LOC: ER 21:20 → EH 11-26 01:22 → 4N 11-27 15:08
PROVIDERS: ADMIT Internal Medicine; ATTEND Internal Medicine
PROC: 0JDQ0ZZ Extraction of Right Foot Subcutaneous Tissue and Fascia, Open Approach (ICD-10-PCS; principal; 2017-12-05)
DX: A41.51 Sepsis due to Escherichia coli [E. coli] (principal); N18.6 End stage renal disease; J10.00 Influenza due to other identified influenza virus with unspecified type of pneumonia; G93.40 Encephalopathy, unspecified; A04.72 Enterocolitis due to Clostridium difficile, not specified as recurrent; J96.10 Chronic respiratory failure, unspecified whether with hypoxia or hypercapnia; I13.2 Hypertensive heart and chronic kidney disease with heart failure and with stage 5 chronic kidney disease, or end stage renal disease; N39.0 Urinary tract infection, site not specified; I50.32 Chronic diastolic (congestive) heart failure; N17.9 Acute kidney failure, unspecified; Z68.43 Body mass index [BMI] 50.0-59.9, adult; Z16.12 Extended spectrum beta lactamase (ESBL) resistance; B95.2 Enterococcus as the cause of diseases classified elsewhere; Z16.21 Resistance to vancomycin; E11.22 Type 2 diabetes mellitus with diabetic chronic kidney disease; I48.0 Paroxysmal atrial fibrillation; I25.10 Atherosclerotic heart disease of native coronary artery without angina pectoris; E78.00 Pure hypercholesterolemia, unspecified; J44.9 Chronic obstructive pulmonary disease, unspecified; E03.9 Hypothyroidism, unspecified; L08.89 Other specified local infections of the skin and subcutaneous tissue; D63.1 Anemia in chronic kidney disease; L98.0 Pyogenic granuloma; G47.33 Obstructive sleep apnea (adult) (pediatric); E66.01 Morbid (severe) obesity due to excess calories; F32.9 Major depressive disorder, single episode, unspecified; R53.81 Other malaise; L85.3 Xerosis cutis; M85.88 Other specified disorders of bone density and structure, other site; I25.2 Old myocardial infarction; Z79.82 Long term (current) use of aspirin; Z79.4 Long term (current) use of insulin; Z79.899 Other long term (current) drug therapy; Z86.73 Personal history of transient ischemic attack (TIA), and cerebral infarction without residual deficits
CPT/HCPCS: 36415; 51701; 71045; 80048; 81001; 82272; 82306; 82607; 82803; 82962; 83605; 83735; 83880; 83970; 84100; 85025; 85027; 87040; 87045; 87086; 87088; 87186; 87205; 87493; 87804; 89055; 94640; 94667; 94668; 99285; G8978-GP; G8979-GP; G8987-GO; G8988-GO; J0360; J1335; J1644; J1815; J1956; J2543; J2920; J3370; J3490; J7030; J7512; J7620; S0119

== ENCOUNTER → 2018-01-23 | Outpatient (CLI) | payer MEDICARE, MEDICAID ==
--- NOTE | 2018-01-23 18:39 | XCELERA REPORT ---
[address] [address] Transthoracic Echocardiogram Report Name: LORETO JOSHI Age: 67 yrs Gender: Female : 1950 Patient Status: Outpatient Patient Location: Study Date: 01/23/2018 02:34 PM Height: 63 in Weight: 297 lb BSA: 2.3 m2 Procedure: A complete two-dimensional transthoracic echocardiogram was performed (2D, M-mode, spectral and color flow Doppler). The study was technically difficult with many images being suboptimal in quality. Reason For Study: Ordering Physician: YVONNE BAR Performed By: Beryl Kaufman Interpretation Summary The study was technically difficult with many images being suboptimal in quality. Left ventricular systolic function is low normal. There is mild concentric left ventricular hypertrophy. The left ventricle is grossly normal size. Doppler measurements suggest pseudonormalized left ventricular relaxation, which is associated with grade II/IV or mild to moderate diastolic dysfunction Regional wall motion abnormalities cannot be excluded due to limited visualization. The right ventricle is grossly normal size. The right ventricular systolic function is normal. The right atrium is mildly dilated. The left atrium is moderately dilated. There is a mild amount of mitral regurgitation There is probable mild mitral stenosis There is mild to moderate aortic stenosis There is a peak gradient of peak 32, mean 16 mm of Hg. No aortic regurgitation is present. There is a mild amount of tricuspid regurgitation There is mild pulmonary hypertension by echo Best estimated RVSP is approximately 40 mm/Hg. The aortic root is not well visualized. The inferior vena cava appeared normal and decreased > 50% with respiration (RAP 5-10 mmHg) Minimal pericardial effusion. MMode/2D Measurements & Calculations RVDd: 3.0 cm LVIDd: 5.1 cmFS: 32.1 % Ao root diam: 2.3 cm IVSd: 1.3 cm LVIDs: 3.5 cmEDV(Teich): 123.6 ml LVPWd: 1.3 cmESV(Teich): 49.5 ml Ao root area: 4.2 cm2 EF(Teich): 59.9 % LA dimension: 4.9 cm LVOT diam: 2.1 cm LVOT area: 3.6 cm2 Doppler Measurements & Calculations MV E max tiera: MV P1/2t max tiera: Ao V2 max: LV V1 max P.9 cm/sec 190.5 cm/sec 282.3 cm/sec 9.4 mmHg MV A max tiera: MV P1/2t: 85.8 msec Ao max PG: LV V1 mean P.0 cm/sec MVA(P1/2t): 2.6 cm2 31.9 mmHg 4.7 mmHg MV E/A: 1.1 MV dec slope: Ao V2 mean: LV V1 max: 650.2 cm/sec2 187.0 cm/sec 153.0 cm/sec MV dec time: 0.25 secAo mean PG: LV V1 mean: 16.8 mmHg 99.4 cm/sec Ao V2 VTI: LV V1 VTI: 62.6 cm 36.0 cm ASIA(I,D): 2.1 cm2 ASIA(V,D): 2.0 cm2 SV(LVOT): 130.2 ml PA V2 max: TR max tiera: 129.0 cm/sec 310.1 cm/sec PA max P.7 mmHg TR max P.5 mmHg Left Ventricle The left ventricle is grossly normal size. There is mild concentric left ventricular hypertrophy. Left ventricular systolic function is low normal. Doppler measurements suggest pseudonormalized left ventricular relaxation, which is associated with grade II/IV or mild to moderate diastolic dysfunction. Regional wall motion abnormalities cannot be excluded due to limited visualization. Right Ventricle The right ventricle is grossly normal size. The right ventricular systolic function is normal. Atria The right atrium is mildly dilated. The left atrium is moderately dilated. Interarterial septum not well visualized and not well dopplered. Cannot comment on ASD/PFO presence. Mitral Valve There is mild to moderate mitral leaflet calcification. There is moderate mitral annular calcification. There is mild mitral stenosis. There is a mild amount of mitral regurgitation. Aortic Valve The aortic valve is not well visualized secondary to technical limitations. There is mild to moderate aortic stenosis. There is a peak gradient of peak 32, mean 16 mm of Hg. No aortic regurgitation is present. Tricuspid Valve The tricuspid valve is not well visualized secondary to technical limitations. There is a mild amount of tricuspid regurgitation. There is mild pulmonary hypertension by echo. Best estimated RVSP is approximately 40 mm/Hg. Pulmonic Valve The pulmonic valve is not well visualized. Great Vessels The aortic root is not well visualized. The inferior vena cava appeared normal and decreased > 50% with respiration (RAP 5-10 mmHg). Effusions Minimal pericardial effusion. : YVONNE BAR > Eric Edward
== END ==
LOC: SP 14:03
PROVIDERS: ATTEND Specialist
DX: I35.0 Nonrheumatic aortic (valve) stenosis (principal)
CPT/HCPCS: 93306

== ENCOUNTER 2018-03-15 11:06 | Inpatient (IN) | payer MEDICARE, MEDICAID ==
--- NOTE | 2018-03-15 11:27 | ER Document Report ---
ED General - General Chief Complaint: Fever Stated Complaint: BLOOD SUGAR CONCERNS Time Seen by Provider: 03/15/18 11:09 Notes: 67-year-old female to emergency department via EMS for fever. Patient is a resident at a snf facility. Was apparently altered this morning. Had chills and shakes. Fever of 101 at nursing facility. Patient has multiple medical problems. Poor health. History of chronic kidney disease, history of chronic C. difficile, history of chronic UTIs. Patient states that she has had C. difficile in the past. Had a fecal transplant. Recently has been having increased amounts of diarrhea. Also was recently hospitalized for pneumonia. Had a cyst of some sort taken off of her right great toe. States that it is getting better and has been seen every day by somebody at the snf. Patient states that she is thirsty. Denies any significant shortness of breath at this time. Denies any chest pain. States that her abdomen "always hurts". TRAVEL OUTSIDE OF THE [place] IN LAST 30 DAYS: No - Related Data Allergies/Adverse Reactions: No Known Allergies Allergy (Verified 04/07/16 16:28) Past Medical History - General Information source: Patient - Social History Smoking Status: Never Smoker Frequency of alcohol use: None Drug Abuse: None Lives with: Shelter Family History: Hypertension - Past Medical History Cardiac Medical History: Reports: Hx Atrial Fibrillation - Paroxysmal, Hx Congestive Heart Failure, Hx Coronary Artery Disease, Hx Heart Attack, Hx Hypercholesterolemia, Hx Hypertension Denies: Hx DVT, Hx Pulmonary Embolism Pulmonary Medical History: Reports: Hx COPD, Hx Pneumonia, Hx Sleep Apnea Denies: Hx Asthma, Hx Bronchitis Neurological Medical History: Denies: Hx Cerebrovascular Accident, Hx Seizures Endocrine Medical History: Reports: Hx Diabetes Mellitus Type 1, Hx Diabetes Mellitus Type 2, Hx Hypothyroidism. Denies: Hx Hyperthyroidism Renal/ Medical History: Reports: Hx End Stage Renal Disease. Denies: Hx Peritoneal Dialysis Malignancy Medical History: Reports: Hx Cervical Cancer GI Medical History: Denies: Hx Cirrhosis, Hx Hepatitis Musculoskeltal Medical History: Reports Hx Arthritis, Reports Hx Gout Skin Medical History: Denies Hx Eczema, Denies Hx Psoriasis Psychiatric Medical History: Reports: Hx Depression Infectious Medical History: Reports: Hx C-Diff - History of severe persistent C. difficile while in [place] and underwent fec. Denies: Hx Hepatitis Past Surgical History: Reports: Hx Abdominal Surgery - umbilical hernia, Hx Appendectomy, Hx Section, Hx Cholecystectomy, Hx Herniorrhaphy, Other - Breast cyst, history of fecal transplant for C. difficile. Denies: Hx Hysterectomy - Immunizations Hx Diphtheria, Pertussis, Tetanus Vaccination: Yes Hx Pneumococcal Vaccination: 08/06/15 Review of Systems - Review of Systems Constitutional: Fever, Malaise, Weakness EENT: denies: Eye pain, Nose pain, Difficulty swallowing, Throat swelling, Mouth pain Cardiovascular: denies: Chest pain, Palpitations, Heart racing, Orthopnea, Syncope Respiratory: denies: Cough, Hurts to breathe, Short of breath, Wheezing Gastrointestinal: Abdominal pain, Diarrhea. denies: Nausea, Vomiting Genitourinary: denies: Burning, Dysuria, Discharge Musculoskeletal: denies: Back pain, Gout, Joint pain Skin: denies: Dryness, Lesions, Rash Neurological/Psychological: Weakness. denies: Confusion, Numbness Physical Exam - Vital signs Vitals: Temp Pulse Resp BP Pulse Ox 99.6 F 88 20 149/52 H 97 03/15/18 11:10 03/15/18 11:10 03/15/18 11:10 03/15/18 11:10 03/15/18 11:10 Interpretation: Normal - General General appearance: Appears well, Alert - HEENT Head: Normocephalic, Atraumatic Eyes: Normal Pupils: PERRL Mucous membranes: Dry - Respiratory Respiratory status: No respiratory distress Chest status: Nontender Breath sounds: Normal Chest palpation: Normal - Cardiovascular Rhythm: Regular Heart sounds: Normal auscultation Murmur: No - Abdominal Inspection: Normal Distension: No distension Bowel sounds: Hyperactive Tenderness: Nontender. No: Guarding, Rebound Organomegaly: No organomegaly - Back Back: Normal, Nontender - Extremities General upper extremity: Normal inspection, Nontender, Normal color, Normal ROM , Normal temperature General lower extremity: Normal inspection, Nontender, Edema, Normal color, Normal ROM, Normal temperature, Other - There is a healing lesion noted on the right great toe. Significant amount of pitting edema bilateral lower extremities.. No: Austin's sign - Neurological Neuro grossly intact: Yes Cognition: Normal Orientation: AAOx4 [place] Coma Scale Eye Opening: Spontaneous [place] Coma Scale Verbal: Oriented Anitra Coma Scale Motor: Obeys Commands [place] Coma Scale Total: 15 Speech: Normal Motor strength normal: LUE, RUE, LLE, RLE Sensory: Normal - Psychological Associated symptoms: Normal affect, Normal mood - Skin Skin Temperature: Warm Skin Moisture: Dry Skin Color: Normal, Other - All healing sore on the right great toe. There is no surrounding erythema. There is no lymphangitic streaking. Not significantly inflamed in appearance. Course - Re-evaluation Re-evalutation: 03/15/18 11:45 She with multiple comorbid conditions snf patient with fever. History of UTIs and C. difficile. History of pneumonia. Will do basic workup on the patient at this time. 03/15/18 14:26 Concern for UTI. Rocephin given. Fluids given. Has an elevated WBC count. Certainly at risk for sepsis based on her comorbid conditions. IV antibiotics have been given. Will consult with hospitalist for admission at this time. - Vital Signs Vital signs: Temp Pulse Resp BP Pulse Ox 99.6 F 88 20 149/52 H 100 03/15/18 11:10 03/15/18 11:10 03/15/18 11:10 03/15/18 11:10 03/15/18 12:00 - Laboratory Result Diagrams: 03/15/18 12:18 03/15/18 12:18 Laboratory results interpreted by me: 03/15/18 03/15/18 03/15/18 12:18 12:18 12:18 WBC 14.6 H Hgb 11.5 L Hct 35.5 L Seg Neutrophils % 85.2 H Lymphocytes % 9.1 L Absolute Neutrophils 12.4 H Sodium 146.9 H Chloride 94 L Carbon Dioxide 39 H BUN 84 H Creatinine 2.19 H Est GFR ( Amer) 27 L Est GFR (Non-Af Amer) 22 L Glucose 299 H Calcium 10.4 H Direct Bilirubin 0.6 H Urine Glucose (UA) 50 H Urine Nitrite POSITIVE H Ur Leukocyte Esterase SMALL H - EKG Interpretation by Wy EKG shows normal: Sinus rhythm, QRS Complexes, ST-T Waves [place]/QRS: Left axis deviation Voltage: Consistant with LVH Discharge - Discharge Clinical Impression: Urinary tract infection Qualifiers: Urinary tract infection type: site unspecified Hematuria presence: without hematuria Qualified Code(s): N39.0 - Urinary tract infection, site not specified Chronic kidney disease Qualifiers: Chronic kidney disease stage: unspecified stage Qualified Code(s): N18.9 - Chronic kidney disease, unspecified Fever Qualifiers: Fever type: unspecified Qualified Code(s): R50.9 - Fever, unspecified Condition: Good Disposition: ADMITTED INPATIENT Admitting Provider: Hospitalist - [facility] Admitted: Telemetry
[2018-03-15 12:49] LABS: APPEARANCE,URINE SLIGHTLY-CLOUDY; BILIRUBIN,URINE NEGATIVE (NEGATIVE); COLOR,URINE YELLOW; GLUCOSE, URINE 50 mg/dL (NEGATIVE); KETONES,URINE NEGATIVE (NEGATIVE); LEUKOCYTE ESTERASE,URINE SMALL (NEGATIVE); NITRITE,URINE POSITIVE (NEGATIVE); PROTEIN,URINE NEGATIVE (NEGATIVE); URINE SPECIFIC GRAVITY 1.012; UROBILINOGEN,URINE NEGATIVE mg/dL (<2.0)
[2018-03-15 12:52] LABS: ABSOLUTE LYMPHOCYTES (AUTO) 1.3 10^3/uL (0.5-4.7); ABSOLUTE MONOCYTES (AUTO) 0.8 10^3/uL (0.1-1.4); ABSOLUTE NEUT (AUTO) 12.4 10^3/uL (1.7-8.2); BASOPHILS % (AUTO) 0.3 % (0-2); EOSINOPHILS % (AUTO) 0.2 % (0-6); HEMATOCRIT 35.5 % (36.0-47.0); HEMOGLOBIN 11.5 g/dL (12.0-15.5); LYMPHOCYTES % (AUTO) 9.1 % (13-45); MEAN CORPUSCULAR HGB CONC 32.5 g/dL (32.0-36.0); MEAN CORPUSCULAR VOLUME 93 fl (80-97); MONOCYTES % (AUTO) 5.2 % (3-13); PLATELET COUNT 188 10^3/uL (150-450); RED BLOOD COUNT 3.84 10^6/uL (3.72-5.28); RED CELL DISTRIBUTION WIDTH 13.3 % (11.5-14.0); SEGMENTED NEUTROPHILS % (AUTO) 85.2 % (42-78); TOTAL CELLS COUNTED % (AUTO) 100 %; WHITE BLOOD COUNT 14.6 10^3/uL (4.0-10.5)
[2018-03-15] MEDS ORDERED: NORMAL SALINE 1000 ML 1,000 ML IV ONE (12:58)
[2018-03-15] MEDS ORDERED: CEFTRIAXONE 1 GM/D5W RTU 1 GM/50 ML RTUPB IV ONE (12:58)
[2018-03-15 13:24] LABS: ALANINE AMINOTRANSFERASE 25 U/L (9-52); ALKALINE PHOSPHATASE 61 U/L (38-126); ASPARTATE AMINO TRANSFERASE 36 U/L (14-36); BILIRUBIN,DIRECT 0.6 mg/dL (0.0-0.4); BILIRUBIN,TOTAL 0.6 mg/dL (0.2-1.3); BLOOD UREA NITROGEN 84 mg/dL (7-20); CALCIUM 10.4 mg/dL (8.4-10.2); CHLORIDE 94 mmol/L (98-107); GLUCOSE 299 mg/dL (75-110); POTASSIUM 3.7 mmol/L (3.6-5.0); SODIUM 146.9 mmol/L (137-145); TOTAL PROTEIN 7.7 g/dL (6.3-8.2)
--- NOTE | 2018-03-15 13:30 | RADIOLOGY REPORT (SQ) ---
EXAM DESCRIPTION: ACUTE ABDOMEN SERIES COMPLETED DATE/TIME: 03/15/2018 1:14 pm REASON FOR STUDY: abd pain COMPARISON: None. NUMBER OF VIEWS: Three views. TECHNIQUE: Frontal chest, supine abdomen and upright/decubitus abdomen radiographic images acquired. LIMITATIONS: Body habitus. FINDINGS: CHEST: Lungs clear of infiltrates. FREE AIR: None. No abnormal gas collections. BOWEL GAS PATTERN: Nonobstructive pattern. No dilated loops or air fluid levels. CALCIFICATIONS: No suspicious calcifications. HARDWARE: None in the abdomen. SOFT TISSUES: No gross mass or suggestion of organomegaly. BONES: No acute fracture. No worrisome bone lesions. OTHER: No other significant finding. IMPRESSION: NO RADIOGRAPHIC EVIDENCE FOR ACUTE ABDOMINAL DISEASE. TECHNICAL DOCUMENTATION: JOB ID: [id number] [employer]- All Rights Reserved Reading location - IP/workstation name: [email or web address]
[2018-03-15 13:32] LABS: ANION GAP 14 (5-19)
--- NOTE | 2018-03-15 13:34 | EKG REPORT ---
SEVERITY:- ABNORMAL ECG - SINUS RHYTHM MULTIPLE ATRIAL PREMATURE COMPLEXES LEFT VENTRICULAR HYPERTROPHY : Confirmed by: Serg Javier MD 15-Mar-2018 13:33:21
[2018-03-15 13:55] LABS: CARBON DIOXIDE 39 mmol/L (22-30)
[2018-03-15] MEDS ORDERED: CEFTRIAXONE INJ 1000 MG VIAL IV ONE (14:16)
[2018-03-15] MEDS ORDERED: ACETAMINOPHEN 325 MG TABLET PO PRN (15:30)
[2018-03-15] MEDS ORDERED: VANCOMYCIN HCL 0 MG in DEXTROSE 5%-WATER 250 ML IV NR (15:45)
[2018-03-15] MEDS ORDERED: DEXTROSE 50%-WATER 25 GM/50 ML DISP.SYRIN IV PRN ×2 (16:10)
[2018-03-15] MEDS ORDERED: GLUCAGON,HUMAN RECOMB 1 MG INJ IM PRN (16:10)
[2018-03-15] MEDS ORDERED: DEXTROSE 40% GEL 15 GM TUBE PO PRN ×2 (16:10)
--- NOTE | 2018-03-15 16:10 | PDOC H&P ---
History of Present Illness Admission Date/PCP: NICOLETTE RIZO MD Patient complains of: Patient presents to the emergency room with fever. History is obtained from chart as she is unable to provide any history History of Present Illness: LORETO JOSHI is a 67 year old female 67-year-old female to emergency department via EMS for fever. Patient is a resident at a fdc facility. Was apparently altered this morning. Had chills and shakes. Fever of 101 at nursing facility. Patient has multiple medical problems. Poor health. History of chronic kidney disease, history of chronic C. difficile, history of chronic UTIs. Patient states that she has had C. difficile in the past. Had a fecal transplant. Recently has been having increased amounts of diarrhea. Also was recently hospitalized for pneumonia. Had a cyst of some sort taken off of her right great toe. States that it is getting better and has been seen every day by somebody at the fdc. Patient states that she is thirsty. Denies any significant shortness of breath at this time. Denies any chest pain. States that her abdomen "always hurts". She also was unable to provide any history due to her altered mental status and information is obtained from the chart. It appears patient was in poor but relatively stable condition obtained yesterday in fact she had talked to her son on the phone. Patient was found to be febrile and there is some history of recent diarrhea although actually patient denied that has self. She had a fecal transplant about 2 years ago for C. difficile colitis and this apparently has been effective and she has had no recent C. difficile infection. There is no history of nausea vomiting or dizziness. Patient is clinically very dry with chapped lips. Lethargic Past Medical History Cardiac Medical History: Reports: Atrial Fibrillation - Paroxysmal, Congestive Heart Failure, Coronary Artery Disease, Myocardial Infarction, Hyperlipidema, Hypertension Denies: DVT, Pulmonary Embolism Pulmonary Medical History: Reports: Chronic Obstructive Pulmonary Disease (COPD) , Pneumonia, Sleep Apnea Denies: Asthma, Bronchitis Neurological Medical History: Denies: Seizures Endocrine Medical History: Reports: Diabetes Mellitus Type 1, Diabetes Mellitus Type 2, Hypothyroidism Denies: Hyperthyroidism Renal/ Medical History: Reports: End Stage Renal Disease Malignancy Medical History: Reports: Cervical Cancer GI Medical History: Denies: Cirrhosis, Hepatitis Musculoskeltal Medical History: Reports: Arthritis, Gout Skin Medical History: Denies: Eczema, Psoriasis Psychiatric Medical History: Reports: Depression Hematology: Reports: Anemia Infectious Medical History: Reports: Clostridium Difficile - History of severe persistent C. difficile while in [place] and underwent fec Past Surgical History Past Surgical History: Reports: Appendectomy, Section, Cholecystectomy , Herniorrhaphy, Other - Breast cyst, history of fecal transplant for C. difficile Denies: Hysterectomy Social History Lives with: Custodial Smoking Status: Never Smoker Frequency of Alcohol Use: None Hx Recreational Drug Use: No Drugs: None Hx Prescription Drug Abuse: No - Advance Directive Resuscitation Status: Full Code Family History Family History: Hypertension Parental Family History Reviewed: No Children Family History Reviewed: Unknown Sibling(s) Family History Reviewed.: Unknown Medication/Allergy Home Medications: Amlodipine Besylate [Norvasc 10 mg Tablet] 10 mg PO DAILY #30 tablet 12/15/17 Atorvastatin Calcium [Lipitor 20 mg Tablet] 20 mg PO QHS #30 tablet 12/15/17 Carvedilol [Coreg 12.5 mg Tablet] 12.5 mg PO Q12 #60 tablet 12/15/17 Cetirizine HCl [Zyrtec 10 mg Tablet] 10 mg PO DAILY #30 tablet 12/15/17 Fenofibrate Nanocrystallized [Tricor 145 mg Tablet] 145 mg PO QHS #30 tablet 07/24 Ferrous Sulfate [Feosol 325 mg Tablet] 325 mg PO BID #60 tablet 12/15/17 Guaifenesin [Mucinex Sr 600 mg Tablet.sa] 1,200 mg PO Q12 #16 tablet.sa Levothyroxine Sodium [Synthroid 0.088 mg Tablet] 0.088 mg PO Q6AM #30 tablet 07/24 Psyllium Seed [Metamucil-Sf Powder 5.85 gm Packet] 1 packet PO Q8 #30 packet 07/24 Aspirin [Aspirin EC] 81 mg PO DAILY 03/15/18 Cholecalciferol (Vitamin D3) [Vitamin D3 1000 Unit Tablet] 5,000 unit PO DAILY 03/15/18 Clobetasol Propionate [Cormax Solution] 1 applic TP QHS MDD TO FLARE AREAS SCALP /EAR LOBES 03/15/18 Furosemide [Lasix 80 mg Tablet] 80 mg PO BID 03/15/18 Glimepiride [Amaryl 4 mg Tablet] 4 mg PO Q12 03/15/18 Insulin Glargine,Hum.rec.anlog [Lantus Solostar] 35 unit SQ Q12 03/15/18 Insulin Lispro [Humalog Insulin 100 Unit/1 ml 3 ml Vial] 0 unit SUBCUT .SLD SCALE 03/15/18 Lactobacillus Acidophilus [Probiotic Acidophilus] 1 tab PO BID 03/15/18 Metolazone [Zaroxolyn 2.5 Mg Tablet] 2.5 mg PO MOWEFR@0800 MDD 30-60MINS BEFORE LASIX 03/15/18 Pimecrolimus [Elidel] 1 applic TP BID MDD SCALY AREAS OF FACE AND EARS 03/15/18 Pregabalin [Lyrica 75 mg Capsule] 75 mg PO Q8 03/15/18 Trazodone HCl [Desyrel 50 mg Tablet] 50 mg PO QHS 03/15/18 Allergies/Adverse Reactions: No Known Allergies Allergy (Verified 03/15/18 15:04) Review of Systems ROS unobtainable: Due to mental status Constitutional: PRESENT: fever(s) Cardiovascular: ABSENT: chest pain, dyspnea on exertion Gastrointestinal: ABSENT: abdominal pain, diarrhea, nausea, vomiting Musculoskeletal: PRESENT: deformity Neurological: PRESENT: weakness Physical Exam Vital Signs: Temp Pulse Resp BP Pulse Ox 99.6 F 88 20 149/52 H 100 03/15/18 11:10 03/15/18 11:10 03/15/18 11:10 03/15/18 11:10 03/15/18 12:00 Intake & Output 03/14/18 03/15/18 03/16/18 06:59 06:59 06:59 Weight 137.438 kg General appearance: PRESENT: no acute distress, morbidly obese, well-nourished - Lethargic Head exam: PRESENT: atraumatic Ear exam: PRESENT: normal external ear exam Neck exam: ABSENT: carotid bruit, JVD, lymphadenopathy, thyromegaly Respiratory exam: PRESENT: clear to auscultation emperatriz. ABSENT: rales, rhonchi, wheezes Cardiovascular exam: PRESENT: RRR. ABSENT: diastolic murmur, rubs, systolic murmur GI/Abdominal exam: PRESENT: normal bowel sounds, soft. ABSENT: distended, guarding, mass, organolmegaly, rebound, tenderness Rectal exam: PRESENT: deferred Gentrourinary exam: ABSENT: indwelling catheter Extremities exam: PRESENT: pedal edema, +2 edema Musculoskeletal exam: ABSENT: ambulatory, deformity - Both feet with swelling Neurological exam: PRESENT: other - arousable but lethargic, unable to converse at this time Skin exam: PRESENT: other - Bilateral lower extremity swelling and tenderness R >L with chronic skin changes Results Laboratory Results: 03/15/18 12:18 03/15/18 12:18 03/15/18 03/15/18 03/15/18 12:18 12:18 12:18 WBC 14.6 H RBC 3.84 Hgb 11.5 L Hct 35.5 L MCV 93 MCH 30.0 MCHC 32.5 RDW 13.3 Plt Count 188 Seg Neutrophils % 85.2 H Lymphocytes % 9.1 L Monocytes % 5.2 Eosinophils % 0.2 Basophils % 0.3 Absolute Neutrophils 12.4 H Absolute Lymphocytes 1.3 Absolute Monocytes 0.8 Absolute Eosinophils 0.0 Absolute Basophils 0.0 Sodium 146.9 H Potassium 3.7 Chloride 94 L Carbon Dioxide 39 H Anion Gap 14 BUN 84 H Creatinine 2.19 H Est GFR ( Amer) 27 L Est GFR (Non-Af Amer) 22 L Glucose 299 H Lactic Acid Calcium 10.4 H Total Bilirubin 0.6 AST 36 ALT 25 Alkaline Phosphatase 61 Total Protein 7.7 Albumin 4.0 Urine Color YELLOW Urine Appearance SLIGHTLY-CLOUDY Urine pH 5.0 Ur Specific [place] 1.012 Urine Protein NEGATIVE Urine Glucose (UA) 50 H Urine Ketones NEGATIVE Urine Blood NEGATIVE Urine Nitrite POSITIVE H Ur Leukocyte Esterase SMALL H Urine WBC (Auto) 18 Urine RBC (Auto) 0 03/15/18 12:18 WBC RBC Hgb Hct MCV MCH MCHC RDW Plt Count Seg Neutrophils % Lymphocytes % Monocytes % Eosinophils % Basophils % Absolute Neutrophils Absolute Lymphocytes Absolute Monocytes Absolute Eosinophils Absolute Basophils Sodium Potassium Chloride Carbon Dioxide Anion Gap BUN Creatinine Est GFR ( Amer) Est GFR (Non-Af Amer) Glucose Lactic Acid 1.2 Calcium Total Bilirubin AST ALT Alkaline Phosphatase Total Protein Albumin Urine Color Urine Appearance Urine pH Ur Specific [place] Urine Protein Urine Glucose (UA) Urine Ketones Urine Blood Urine Nitrite Ur Leukocyte Esterase Urine WBC (Auto) Urine RBC (Auto) 03/15/18 12:18 Troponin I 0.033 Impressions: Acute Abdomen Series 03/15/18 11:41 IMPRESSION: NO RADIOGRAPHIC EVIDENCE FOR ACUTE ABDOMINAL DISEASE. Assessment & Plan - Diagnosis (1) Acute encephalopathy Is this a current diagnosis for this admission?: Yes Plan: likely infectious, will continue supportive care (2) Acute kidney injury superimposed on chronic kidney disease Is this a current diagnosis for this admission?: Yes Plan: Patient is clinically hypovolemic. 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 Diff and treat accordingly. (6) Hypernatremia Is this a current diagnosis for this admission?: Yes Plan: Hypernatremic dehydration, give IVF - Time Time Spent: 30 to 50 Minutes Medications reviewed and adjusted accordingly: Yes Anticipated discharge: SNF - Inpatient Certification Based on my medical assessment, after consideration of the patient's comorbidities, presenting symptoms, or acuity I expect that the services needed warrant INPATIENT care.: Yes Medical Necessity: Significant Comorbidiites Make Outpatient Treatment Too Risky , Need for IV Antibiotics - Plan Summary Plan Summary: Possible Sepsis- etiology unclear, although urine noted to be pyuric. Will place on empiric broad spectrum antibiotic including as well as Vacomycin to cover MRSA as she is at high risk Will deescalate antibiotics promptly given her history of severe C. Diff colitis
[2018-03-15] MEDS: 1/2 NORMAL SALINE 1,000 ML IV PRN (16:59)
[2018-03-15] MEDS ORDERED: VANCOMYCIN HCL 1,500 MG in DEXTROSE 5%-WATER 250 ML IV SCH (18:00)
[2018-03-15] MEDS: HEPARIN SOD (PORCINE) 5,000 UNIT/ML 1 ML SYRINGE SUBCUT SCH (21:54)
[2018-03-15] MEDS: CEFEPIME 1 GM/D5W RTU 1 GM/50 ML RTUPB IV SCH (21:55)
[2018-03-15] MEDS: ATORVASTATIN CALCIUM 20 MG TABLET PO SCH (21:55)
[2018-03-16 05:02] LABS: HEMATOCRIT 32.3 % (36.0-47.0); HEMOGLOBIN 10.7 g/dL (12.0-15.5); MEAN CORPUSCULAR HEMOGLOBIN 30.6 pg (27.0-33.4); MEAN CORPUSCULAR HGB CONC 33.1 g/dL (32.0-36.0); MEAN CORPUSCULAR VOLUME 92 fl (80-97); PLATELET COUNT 164 10^3/uL (150-450); RED BLOOD COUNT 3.49 10^6/uL (3.72-5.28); RED CELL DISTRIBUTION WIDTH 13.5 % (11.5-14.0); WHITE BLOOD COUNT 8.9 10^3/uL (4.0-10.5)
[2018-03-16] MEDS: HEPARIN SOD (PORCINE) 5,000 UNIT/ML 1 ML SYRINGE SUBCUT SCH ×3 (05:13→21:23)
[2018-03-16 05:27] LABS: ANION GAP 11 (5-19); BLOOD UREA NITROGEN 68 mg/dL (7-20); CALCIUM 9.7 mg/dL (8.4-10.2); CARBON DIOXIDE 39 mmol/L (22-30); CHLORIDE 97 mmol/L (98-107); GLUCOSE 77 mg/dL (75-110)
[2018-03-16] MEDS ORDERED: POTASSIUM CHLORIDE 10 MEQ TABLET.SA PO ONE (07:00)
[2018-03-16] MEDS: CHOLECALCIFEROL (D3) 1,000 UNIT TABLET PO SCH (09:57)
[2018-03-16] MEDS: CARVEDILOL 12.5 MG TABLET PO SCH ×2 (09:59→21:24)
[2018-03-16] MEDS: CETIRIZINE 10 MG TABLET PO SCH (10:00)
[2018-03-16] MEDS: DOCUSATE SODIUM 100 MG CAPSULE PO SCH (10:00)
[2018-03-16] MEDS: FAMOTIDINE 20 MG TABLET PO SCH (10:01)
[2018-03-16] MEDS: ASPIRIN 81 MG TABLET, ENT COATED PO SCH (10:01)
[2018-03-16] MEDS: AMLODIPINE BESYLATE 10 MG TABLET PO SCH (10:02)
[2018-03-16] MEDS: CEFEPIME 1 GM/D5W RTU 1 GM/50 ML RTUPB IV SCH ×2 (10:02→21:44)
--- NOTE | 2018-03-16 13:56 | PDOC PROGRESS REPORT ---
Subjective Progress Note for:: 03/16/18 Subjective:: Patient is awake and alert belgica and conversant. Says she has abdominal pain, says she is constipated but was having diarrhea in NH. Reason For Visit: SEPSIS/TIFFANIE/DEHYDRATION Physical Exam Vital Signs: Temp Pulse Resp BP Pulse Ox 99.1 F 78 16 142/75 H 100 03/16/18 11:25 03/16/18 11:25 03/16/18 11:25 03/16/18 11:25 03/16/18 11:25 Intake & Output 03/15/18 03/16/18 03/17/18 06:59 06:59 06:59 Intake Total 1845 355 Balance 1845 355 Weight 139.7 kg 139.7 kg General appearance: PRESENT: no acute distress, morbidly obese, well-developed Head exam: PRESENT: atraumatic, normocephalic Eye exam: PRESENT: conjunctiva pink, PERRLA. ABSENT: scleral icterus Mouth exam: PRESENT: dry mucosa, tongue midline Neck exam: ABSENT: carotid bruit, JVD, lymphadenopathy, thyromegaly Respiratory exam: PRESENT: clear to auscultation emperatriz, unlabored. ABSENT: rales , rhonchi, wheezes Cardiovascular exam: PRESENT: RRR. ABSENT: diastolic murmur, rubs, systolic murmur Pulses: PRESENT: normal dorsalis pedis pul Vascular exam: PRESENT: normal capillary refill GI/Abdominal exam: PRESENT: guarding, normal bowel sounds, soft, tenderness - vague generalized, more lower quadrant. ABSENT: distended, mass, organolmegaly , rebound Rectal exam: PRESENT: deferred Extremities exam: PRESENT: full ROM. ABSENT: calf tenderness, clubbing, pedal edema Neurological exam: PRESENT: alert, awake, oriented to person, oriented to place , oriented to time, CN II-XII grossly intact. ABSENT: motor sensory deficit Psychiatric exam: PRESENT: appropriate affect, normal mood. ABSENT: homicidal ideation, suicidal ideation Skin exam: PRESENT: dry, intact, warm. ABSENT: cyanosis, rash Results Laboratory Results: 03/16/18 04:08 03/16/18 04:08 03/16/18 03/16/18 03/16/18 04:08 04:08 04:08 WBC 8.9 RBC 3.49 L Hgb 10.7 L Hct 32.3 L MCV 92 MCH 30.6 MCHC 33.1 RDW 13.5 Plt Count 164 Sodium 147.0 H Potassium 3.0 L* Chloride 97 L Carbon Dioxide 39 H Anion Gap 11 BUN 68 H Creatinine 1.96 H Est GFR ( Amer) 31 L Est GFR (Non-Af Amer) 25 L Glucose 77 Calcium 9.7 Magnesium 1.6 Impressions: Acute Abdomen Series 03/15/18 11:41 IMPRESSION: NO RADIOGRAPHIC EVIDENCE FOR ACUTE ABDOMINAL DISEASE. Assessment & Plan - Diagnosis (1) Acute encephalopathy Is this a current diagnosis for this admission?: Yes Plan: Secondary to acute infection, resolving (2) Acute kidney injury superimposed on chronic kidney disease Is this a current diagnosis for this admission?: Yes Plan: TIFFANIE secondary to ATN, prerenal. Improving. Will continue IVF (3) Bed confinement status Is this a current diagnosis for this admission?: Yes Plan: Due to xple underlying illnsses (4) Diabetes mellitus, type II Qualifiers: Diabetes mellitus fpc insulin use: unspecified rn long term care insulin use status Diabetes mellitus complication detail: with nephropathy Is this a current diagnosis for this admission?: Yes Plan: Cont SSI (5) History of Clostridium difficile infection Is this a current diagnosis for this admission?: Yes Plan: No diarrhea currently. will obtain samples as needed (6) Hypernatremia Is this a current diagnosis for this admission?: Yes Plan: Hypernatremic dehydration, cont hypotonic IVF (7) Urinary tract infection Qualifiers: Urinary tract infection type: site unspecified Hematuria presence: without hematuria Qualified Code(s): N39.0 - Urinary tract infection, site not specified Is this a current diagnosis for this admission?: Yes Plan: Secvondary to Gram negative rods. Will await full results. Cont Cefepime DC Vancomycin - Time Time Spent with patient: 15-24 minutes Anticipated discharge: SNF Within: within 72 hours - Inpatient Certification Based on my medical assessment, after consideration of the patient's comorbidities, presenting symptoms, or acuity I expect that the services needed warrant INPATIENT care.: Yes Medical Necessity: Need For IV Fluids, Need for IV Antibiotics
[2018-03-16] MEDS: ATORVASTATIN CALCIUM 20 MG TABLET PO SCH (21:24)
[2018-03-16] MEDS: 1/2 NORMAL SALINE 1,000 ML IV PRN (21:48)
[2018-03-17] MEDS ORDERED: VANCOMYCIN HCL INJ 500 MG VIAL PO ONE (00:45)
[2018-03-17] MEDS: IPRATROPIUM/ALBUTEROL 0.5-2.5 MG/3 ML AMPUL NEB PRN (00:45)
[2018-03-17] MEDS ORDERED: VANCOMYCIN HCL INJ 500 MG VIAL ONE ×2 (00:46→03:47)
[2018-03-17] MEDS: VANCOMYCIN HCL INJ 500 MG VIAL PO SCH ×3 (05:32→18:41)
[2018-03-17] MEDS: HEPARIN SOD (PORCINE) 5,000 UNIT/ML 1 ML SYRINGE SUBCUT SCH ×3 (05:32→22:32)
[2018-03-17] MEDS ORDERED: VANCOMYCIN HCL INJ 500 MG VIAL PO SCH (06:00)
[2018-03-17 06:09] LABS: ABSOLUTE BASOPHILS # (AUTO) 0.1 10^3/uL (0.0-0.2); ABSOLUTE EOSINOPHILS # (AUTO) 0.2 10^3/uL (0.0-0.6); ABSOLUTE LYMPHOCYTES (AUTO) 1.7 10^3/uL (0.5-4.7); ABSOLUTE NEUT (AUTO) 4.1 10^3/uL (1.7-8.2); BASOPHILS % (AUTO) 0.9 % (0-2); EOSINOPHILS % (AUTO) 3.3 % (0-6); HEMATOCRIT 31.1 % (36.0-47.0); HEMOGLOBIN 10.3 g/dL (12.0-15.5); LYMPHOCYTES % (AUTO) 23.7 % (13-45); MEAN CORPUSCULAR HEMOGLOBIN 30.4 pg (27.0-33.4); MEAN CORPUSCULAR HGB CONC 33.1 g/dL (32.0-36.0); MEAN CORPUSCULAR VOLUME 92 fl (80-97); MONOCYTES % (AUTO) 14.2 % (3-13); PLATELET COUNT 164 10^3/uL (150-450); RED BLOOD COUNT 3.38 10^6/uL (3.72-5.28); RED CELL DISTRIBUTION WIDTH 12.9 % (11.5-14.0); SEGMENTED NEUTROPHILS % (AUTO) 57.9 % (42-78); TOTAL CELLS COUNTED % (AUTO) 100 %; WHITE BLOOD COUNT 7.1 10^3/uL (4.0-10.5)
[2018-03-17 06:27] LABS: BLOOD UREA NITROGEN 52 mg/dL (7-20); CALCIUM 9.6 mg/dL (8.4-10.2); CHLORIDE 98 mmol/L (98-107); GLUCOSE 163 mg/dL (75-110); POTASSIUM 3.3 mmol/L (3.6-5.0); SODIUM 145.4 mmol/L (137-145)
[2018-03-17 06:36] LABS: ANION GAP 8 (5-19)
[2018-03-17 06:41] LABS: CARBON DIOXIDE 39 mmol/L (22-30)
[2018-03-17] MEDS: INSULIN REG, HUMAN 100 UNIT/ML 3 ML VIAL (PYX) SUBCUT PRN ×2 (08:26→16:45)
[2018-03-17] MEDS: 1/2 NORMAL SALINE 1,000 ML IV PRN ×2 (08:26→18:41)
[2018-03-17] MEDS: ONDANSETRON HCL INJ/PF 4 MG/2 ML SDV IV PRN ×3 (08:26→22:47)
[2018-03-17] MEDS: CARVEDILOL 12.5 MG TABLET PO SCH ×2 (10:34→22:32)
[2018-03-17] MEDS: ASPIRIN 81 MG TABLET, ENT COATED PO SCH (10:34)
[2018-03-17] MEDS: CHOLECALCIFEROL (D3) 1,000 UNIT TABLET PO SCH (10:34)
[2018-03-17] MEDS: CEFEPIME 1 GM/D5W RTU 1 GM/50 ML RTUPB IV SCH ×2 (10:34→22:32)
[2018-03-17] MEDS: CETIRIZINE 10 MG TABLET PO SCH (10:34)
[2018-03-17] MEDS: AMLODIPINE BESYLATE 10 MG TABLET PO SCH (10:34)
[2018-03-17] MEDS: FAMOTIDINE 20 MG TABLET PO SCH (10:34)
[2018-03-17] MEDS: DOCUSATE SODIUM 100 MG CAPSULE PO SCH (10:35)
--- NOTE | 2018-03-17 12:50 | PDOC PROGRESS REPORT ---
Subjective Progress Note for:: 03/17/18 Subjective:: Patient is awake and alert and appears to be back at her baseline mental status. She tells me she has diarrhea however she had 2 bowel movements yesterday. C. difficile PCR done is positive. Reason For Visit: SEPSIS/TIFFANIE/DEHYDRATION Physical Exam Vital Signs: Temp Pulse Resp BP Pulse Ox 98.9 F 75 20 142/44 H 94 03/17/18 11:14 03/17/18 11:14 03/17/18 11:14 03/17/18 11:14 03/17/18 11:14 Intake & Output 03/16/18 03/17/18 03/18/18 06:59 06:59 06:59 Intake Total 1845 3660 118 Balance 1845 3660 118 Weight 139.7 kg 139.5 kg General appearance: PRESENT: no acute distress, morbidly obese, well-developed Head exam: PRESENT: atraumatic Eye exam: PRESENT: conjunctiva pink, PERRLA. ABSENT: scleral icterus Mouth exam: PRESENT: dry mucosa, tongue midline Neck exam: ABSENT: carotid bruit, JVD, lymphadenopathy, thyromegaly Respiratory exam: PRESENT: clear to auscultation emperatriz. ABSENT: rales, rhonchi, wheezes Cardiovascular exam: PRESENT: RRR. ABSENT: diastolic murmur, rubs, systolic murmur Pulses: PRESENT: normal dorsalis pedis pul Vascular exam: PRESENT: normal capillary refill GI/Abdominal exam: PRESENT: normal bowel sounds, soft, tenderness - Vague mild. ABSENT: distended, guarding, mass, organolmegaly, rebound Rectal exam: PRESENT: deferred Extremities exam: PRESENT: pedal edema, +2 edema. ABSENT: calf tenderness, clubbing Musculoskeletal exam: ABSENT: ambulatory Neurological exam: PRESENT: alert, awake, oriented to person, oriented to place , oriented to time, oriented to situation. ABSENT: motor sensory deficit Psychiatric exam: PRESENT: appropriate affect, normal mood. ABSENT: homicidal ideation, suicidal ideation Skin exam: PRESENT: dry, erythema - Lower extremity, intact, warm. ABSENT: cyanosis, rash Results Laboratory Results: 03/17/18 05:21 03/17/18 05:21 03/17/18 03/17/18 05:21 05:21 WBC 7.1 RBC 3.38 L Hgb 10.3 L Hct 31.1 L MCV 92 MCH 30.4 MCHC 33.1 RDW 12.9 Plt Count 164 Seg Neutrophils % 57.9 Lymphocytes % 23.7 Monocytes % 14.2 H Eosinophils % 3.3 Basophils % 0.9 Absolute Neutrophils 4.1 Absolute Lymphocytes 1.7 Absolute Monocytes 1.0 Absolute Eosinophils 0.2 Absolute Basophils 0.1 Sodium 145.4 H Potassium 3.3 L Chloride 98 Carbon Dioxide 39 H Anion Gap 8 BUN 52 H Creatinine 1.66 H Est GFR ( Amer) 37 L Est GFR (Non-Af Amer) 31 L Glucose 163 H Calcium 9.6 Impressions: Acute Abdomen Series 03/15/18 11:41 IMPRESSION: NO RADIOGRAPHIC EVIDENCE FOR ACUTE ABDOMINAL DISEASE. Assessment & Plan - Diagnosis (1) Acute encephalopathy Is this a current diagnosis for this admission?: Yes Plan: Secondary to acute infection, resolved (2) Acute kidney injury superimposed on chronic kidney disease Is this a current diagnosis for this admission?: Yes Plan: TIFFANIE secondary to ATN, prerenal. Improving. Will continue hypotonic IVF (3) Bed confinement status Is this a current diagnosis for this admission?: Yes Plan: Due to xple underlying illnesses Will order PT once she is stable (4) Diabetes mellitus, type II Qualifiers: Diabetes mellitus chcf insulin use: unspecified chcf insulin use status Diabetes mellitus complication detail: with nephropathy Is this a current diagnosis for this admission?: Yes Plan: Cont SSI (5) History of Clostridium difficile infection Is this a current diagnosis for this admission?: Yes Plan: C. difficile PCR did come back positive. This patient has had a fecal transplant. Given the difficulty that she had in previous times with eradication of C. difficile and her generalized poorly deconditioned state I think it is imperative to confirm that she really has C. difficile before subjecting her to further treatment. She was started on vancomycin orally last night and I will eat this for now however an ID consult via telephone is been sought for review and to ensure that patient is been adequately treated she failed multiple treatment with vancomycin and Flagyl previously and that is why she needed fecal transplant (6) Hypernatremia Is this a current diagnosis for this admission?: Yes Plan: Hypernatremic dehydration, cont hypotonic IVF (7) Urinary tract infection Qualifiers: Urinary tract infection type: site unspecified Hematuria presence: without hematuria Qualified Code(s): N39.0 - Urinary tract infection, site not specified Is this a current diagnosis for this admission?: Yes Plan: Secondary to E.coli Cont Cefepime although I realized that Carbapenems appeared to be more appropriate patient has been responding to cefepime with sepsis resolving and so we will leave her on the cefepime for now - Time Time Spent with patient: 15-24 minutes Medications reviewed and adjusted accordingly: Yes Anticipated discharge: SNF Within: within 72 hours - Inpatient Certification Based on my medical assessment, after consideration of the patient's comorbidities, presenting symptoms, or acuity I expect that the services needed warrant INPATIENT care.: Yes Medical Necessity: Significant Comorbidiites Make Outpatient Treatment Too Risky , Need for IV Antibiotics
[2018-03-17] MEDS: OXYCODONE-ACETAMINOPHEN 5-325 MG TABLET PO PRN (20:10)
[2018-03-17] MEDS: ATORVASTATIN CALCIUM 20 MG TABLET PO SCH (22:32)
[2018-03-18] MEDS: VANCOMYCIN HCL INJ 500 MG VIAL PO SCH ×4 (00:21→18:04)
[2018-03-18] MEDS: ALPRAZOLAM 0.5 MG TABLET PO PRN ×2 (00:22→21:05)
[2018-03-18] MEDS: 1/2 NORMAL SALINE 1,000 ML IV PRN ×3 (04:05→21:05)
[2018-03-18] MEDS: OXYCODONE-ACETAMINOPHEN 5-325 MG TABLET PO PRN (05:04)
[2018-03-18] MEDS: HEPARIN SOD (PORCINE) 5,000 UNIT/ML 1 ML SYRINGE SUBCUT SCH ×3 (05:05→21:05)
[2018-03-18] MEDS: ONDANSETRON HCL INJ/PF 4 MG/2 ML SDV IV PRN ×3 (05:28→19:20)
[2018-03-18] MEDS: CEFEPIME 1 GM/D5W RTU 1 GM/50 ML RTUPB IV SCH ×2 (09:45→21:05)
[2018-03-18 09:47] LABS: ANION GAP 12 (5-19); BLOOD UREA NITROGEN 45 mg/dL (7-20); CALCIUM 9.6 mg/dL (8.4-10.2); CARBON DIOXIDE 32 mmol/L (22-30); CHLORIDE 98 mmol/L (98-107); GLUCOSE 191 mg/dL (75-110); POTASSIUM 3.8 mmol/L (3.6-5.0); SODIUM 141.9 mmol/L (137-145)
[2018-03-18] MEDS: CARVEDILOL 12.5 MG TABLET PO SCH ×2 (12:51→21:06)
[2018-03-18] MEDS: FAMOTIDINE 20 MG TABLET PO SCH (12:51)
[2018-03-18] MEDS: CETIRIZINE 10 MG TABLET PO SCH (12:51)
[2018-03-18] MEDS: AMLODIPINE BESYLATE 10 MG TABLET PO SCH (12:51)
[2018-03-18] MEDS: CHOLECALCIFEROL (D3) 1,000 UNIT TABLET PO SCH (12:52)
[2018-03-18] MEDS: ASPIRIN 81 MG TABLET, ENT COATED PO SCH (12:52)
[2018-03-18] MEDS: DOCUSATE SODIUM 100 MG CAPSULE PO SCH (12:52)
--- NOTE | 2018-03-18 13:47 | PDOC PROGRESS REPORT ---
Subjective Progress Note for:: 03/18/18 Subjective:: Patient is awake and alert and appears to be back at her baseline mental status. She tells me she has diarrhea however she had 2 bowel movements yesterday. C. difficile PCR done is positive. Patient is not having any diarrhea currently ad has had no BM overnight. No abdominal pain Reason For Visit: SEPSIS/TIFFANIE/DEHYDRATION Physical Exam Vital Signs: Temp Pulse Resp BP Pulse Ox 99.3 F 85 19 146/78 H 96 03/18/18 07:04 03/18/18 09:25 03/18/18 09:25 03/18/18 07:04 03/18/18 09:25 Intake & Output 03/17/18 03/18/18 03/19/18 06:59 06:59 06:59 Intake Total 3660 1496 Balance 3660 1496 Weight 139.5 kg 140.8 kg General appearance: PRESENT: no acute distress, cooperative, morbidly obese - chronically ill looking Eye exam: PRESENT: conjunctiva pink, EOMI, PERRLA. ABSENT: scleral icterus Ear exam: PRESENT: normal external ear exam Respiratory exam: PRESENT: clear to auscultation emperatriz. ABSENT: rales, rhonchi, wheezes Cardiovascular exam: PRESENT: RRR. ABSENT: diastolic murmur, rubs, systolic murmur Rectal exam: PRESENT: deferred Extremities exam: PRESENT: +2 edema Musculoskeletal exam: PRESENT: ambulatory - with assitance Neurological exam: PRESENT: alert, awake, oriented to person, oriented to place , oriented to time, oriented to situation Psychiatric exam: PRESENT: appropriate affect Skin exam: PRESENT: rash, other - chronic venous stasis L>R rash Results Laboratory Results: 03/17/18 05:21 03/18/18 08:48 03/18/18 08:48 Sodium 141.9 Potassium 3.8 Chloride 98 Carbon Dioxide 32 H Anion Gap 12 BUN 45 H Creatinine 1.42 H Est GFR ( Amer) 45 L Est GFR (Non-Af Amer) 37 L Glucose 191 H Calcium 9.6 Impressions: Acute Abdomen Series 03/15/18 11:41 IMPRESSION: NO RADIOGRAPHIC EVIDENCE FOR ACUTE ABDOMINAL DISEASE. Assessment & Plan - Diagnosis (1) Hypernatremia Is this a current diagnosis for this admission?: Yes (2) Acute kidney injury superimposed on chronic kidney disease Is this a current diagnosis for this admission?: Yes Plan: TIFFANIE secondary to ATN, prerenal. Continues to improve Will continue hypotonic IVF (3) Acute encephalopathy Is this a current diagnosis for this admission?: Yes Plan: Resolved (4) Diabetes mellitus, type II Qualifiers: Diabetes mellitus half-way insulin use: unspecified half-way insulin use status Diabetes mellitus complication detail: with nephropathy Is this a current diagnosis for this admission?: Yes Plan: Cont SSI (5) History of Clostridium difficile infection Is this a current diagnosis for this admission?: Yes Plan: C. difficile PCR positive. This patient has had a fecal transplant. Given the difficulty that she had in previous times with eradication of C. difficile and her generalized poorly deconditioned state I think it is imperative to confirm that she really has C. difficile before subjecting her to further half-way treatment. Will continue Vancomycin pending ID consult via telephone for review and to ensure that patient is been adequately treated. She failed multiple treatment with vancomycin and Flagyl previously and that is why she needed fecal transplant (6) Urinary tract infection Qualifiers: Urinary tract infection type: site unspecified Hematuria presence: without hematuria Qualified Code(s): N39.0 - Urinary tract infection, site not specified Is this a current diagnosis for this admission?: Yes Plan: Secondary to E.coli Cont Cefepime although I realize that Carbapenems appeare to be more appropriate but patient has been responding to cefepime with sepsis resolving and so we will leave her on the cefepime for now (7) Bed confinement status Is this a current diagnosis for this admission?: Yes Plan: Due to xple underlying illnesses Will order PT - Time Time Spent with patient: 15-24 minutes Medications reviewed and adjusted accordingly: Yes Anticipated discharge: Acute Rehab Within: within 72 hours - Inpatient Certification Based on my medical assessment, after consideration of the patient's comorbidities, presenting symptoms, or acuity I expect that the services needed warrant INPATIENT care.: Yes Medical Necessity: Need For IV Fluids, Need for IV Antibiotics
[2018-03-18] MEDS: PROMETHAZINE HCL INJ 25 MG/1 ML VIAL IV PRN ×2 (17:52→22:14)
[2018-03-18] MEDS: ATORVASTATIN CALCIUM 20 MG TABLET PO SCH (21:05)
[2018-03-19] MEDS: VANCOMYCIN HCL INJ 500 MG VIAL PO SCH ×2 (00:21→05:44)
[2018-03-19] MEDS: ONDANSETRON HCL INJ/PF 4 MG/2 ML SDV IV PRN ×2 (01:22→11:52)
[2018-03-19] MEDS: PROMETHAZINE HCL INJ 25 MG/1 ML VIAL IV PRN (02:12)
[2018-03-19] MEDS ORDERED: PHARMACY COMMUNICATION ORDER MC NR (03:15)
--- NOTE | 2018-03-19 03:29 | RADIOLOGY REPORT (SQ) ---
EXAM DESCRIPTION: US ABDOMEN ANEURYSM SCREENING CLINICAL HISTORY: 67 years Female, projectile vomiting, abd pain COMPARISON: 5.10.18 NUMBER OF VIEWS/TECHNIQUE: 6 LIMITATIONS: None. FINDINGS: Moderate gaseous gastric distention. Mild small bowel distention measures 3.6 cm in diameter. No free air. No suspicious calcification. Mild chronic interstitial markings. Moderate disc desiccation. IMPRESSION: Dilated small bowel and stomach. Differential diagnosis includes small bowel ileus and low-grade small bowel obstruction.
[2018-03-19] MEDS ORDERED: PANTOPRAZOLE SODIUM 40 MG VIAL IV PRN (03:40)
[2018-03-19] MEDS ORDERED: PANTOPRAZOLE SODIUM 40 MG VIAL IV ONE (03:45)
[2018-03-19] MEDS ORDERED: PANTOPRAZOLE SODIUM 80 MG in NORMAL SALINE 100 ML IV ONE (03:45)
[2018-03-19 03:47] LABS: ABSOLUTE BASOPHILS # (AUTO) 0.1 10^3/uL (0.0-0.2); ABSOLUTE EOSINOPHILS # (AUTO) 0.1 10^3/uL (0.0-0.6); ABSOLUTE LYMPHOCYTES (AUTO) 1.3 10^3/uL (0.5-4.7); ABSOLUTE MONOCYTES (AUTO) 0.8 10^3/uL (0.1-1.4); ABSOLUTE NEUT (AUTO) 4.4 10^3/uL (1.7-8.2); EOSINOPHILS % (AUTO) 1.4 % (0-6); HEMATOCRIT 31.3 % (36.0-47.0); HEMOGLOBIN 10.4 g/dL (12.0-15.5); LYMPHOCYTES % (AUTO) 19.2 % (13-45); MEAN CORPUSCULAR HEMOGLOBIN 30.2 pg (27.0-33.4); MEAN CORPUSCULAR HGB CONC 33.3 g/dL (32.0-36.0); MEAN CORPUSCULAR VOLUME 91 fl (80-97); MONOCYTES % (AUTO) 12.2 % (3-13); PLATELET COUNT 184 10^3/uL (150-450); RED BLOOD COUNT 3.46 10^6/uL (3.72-5.28); RED CELL DISTRIBUTION WIDTH 12.8 % (11.5-14.0); SEGMENTED NEUTROPHILS % (AUTO) 66.2 % (42-78); TOTAL CELLS COUNTED % (AUTO) 100 %; WHITE BLOOD COUNT 6.7 10^3/uL (4.0-10.5)
[2018-03-19 04:03] LABS: INTERNATIONAL RATION (INR) 1.06; PROTHROMBIN TIME 14.3 SEC (11.4-15.4)
[2018-03-19 04:12] LABS: ANION GAP 11 (5-19); BLOOD UREA NITROGEN 43 mg/dL (7-20); CALCIUM 9.7 mg/dL (8.4-10.2); CARBON DIOXIDE 35 mmol/L (22-30); CHLORIDE 98 mmol/L (98-107); GLUCOSE 208 mg/dL (75-110); POTASSIUM 3.9 mmol/L (3.6-5.0); SODIUM 144.3 mmol/L (137-145)
[2018-03-19] MEDS ORDERED: NORMAL SALINE 250 ML IV PRN ×2 (04:35)
[2018-03-19] MEDS: NORMAL SALINE 100 ML with PANTOPRAZOLE SODIUM 80 MG IV PRN ×6 (04:45→21:52)
--- NOTE | 2018-03-19 04:45 | RADIOLOGY REPORT (SQ) ---
EXAM DESCRIPTION: XR CHEST 1 VIEW CLINICAL HISTORY: 67 years Female, NG tube Placement COMPARISON: One day prior. NUMBER OF VIEWS/TECHNIQUE: 1/AP for tube placement only FINDINGS: Possible enteric tube tip at the expected gastroesophageal junction. IMPRESSION: Possible enteric tube tip at the expected gastroesophageal junction; consider advancement/replacement as clinically warranted.
[2018-03-19] MEDS ORDERED: DEXTROSE 40% GEL 15 GM TUBE NG PRN ×2 (07:00)
[2018-03-19] MEDS ORDERED: ACETAMINOPHEN 325 MG TABLET NG PRN (07:00)
[2018-03-19] MEDS ORDERED: ACETAMINOPHEN SOLN 325 MG/10.15 ML UDCUP NG PRN (07:07)
--- NOTE | 2018-03-19 09:18 | PDOC PROGRESS REPORT ---
Subjective Progress Note for:: 03/19/18 Subjective:: Patient is awake and alert and appears to be back at her baseline mental status. She had projectile vomiting overnight and had abdominal xrays which showed possible SBO or ileus. Reed Man inserted NG tube. She states her nausea and abdominal pain has resolved at the present time. She denies any chest pain or shortness of breath. She denies any joint pain or arthralgias. Remaining review of systems are negative Reason For Visit: SEPSIS/TIFFANIE/DEHYDRATION Physical Exam Vital Signs: Temp Pulse Resp BP Pulse Ox 99.4 F 81 18 167/63 H 93 03/19/18 07:54 03/19/18 07:54 03/19/18 07:54 03/19/18 07:54 03/19/18 07:54 Intake & Output 03/18/18 03/19/18 03/20/18 06:59 06:59 06:59 Intake Total 1496 2607 Balance 1496 2607 Weight 140.8 kg 142.4 kg General appearance: PRESENT: no acute distress, morbidly obese, well-developed, well-nourished Head exam: PRESENT: atraumatic Eye exam: PRESENT: conjunctiva pink, EOMI, PERRLA. ABSENT: scleral icterus Ear exam: PRESENT: normal external ear exam Mouth exam: PRESENT: moist, tongue midline Neck exam: ABSENT: carotid bruit, JVD, lymphadenopathy, thyromegaly Respiratory exam: PRESENT: clear to auscultation emperatriz. ABSENT: rales, rhonchi, wheezes Cardiovascular exam: PRESENT: RRR. ABSENT: diastolic murmur, rubs, systolic murmur Pulses: PRESENT: normal dorsalis pedis pul Vascular exam: PRESENT: normal capillary refill GI/Abdominal exam: PRESENT: normal bowel sounds, soft. ABSENT: distended, guarding, mass, organolmegaly, rebound, tenderness Rectal exam: PRESENT: deferred Extremities exam: PRESENT: full ROM. ABSENT: calf tenderness, clubbing, pedal edema Neurological exam: PRESENT: alert, awake, oriented to person, oriented to place , oriented to time, oriented to situation, CN II-XII grossly intact. ABSENT: motor sensory deficit Psychiatric exam: PRESENT: flat affect Skin exam: PRESENT: dry, intact, warm. ABSENT: cyanosis, rash Results Laboratory Results: 03/19/18 03:38 03/19/18 03:38 03/18/18 03/19/18 03/19/18 08:48 03:38 03:38 WBC 6.7 RBC 3.46 L Hgb 10.4 L Hct 31.3 L MCV 91 MCH 30.2 MCHC 33.3 RDW 12.8 Plt Count 184 Seg Neutrophils % 66.2 Lymphocytes % 19.2 Monocytes % 12.2 Eosinophils % 1.4 Basophils % 1.0 Absolute Neutrophils 4.4 Absolute Lymphocytes 1.3 Absolute Monocytes 0.8 Absolute Eosinophils 0.1 Absolute Basophils 0.1 Sodium 141.9 144.3 Potassium 3.8 3.9 Chloride 98 98 Carbon Dioxide 32 H 35 H Anion Gap 12 11 BUN 45 H 43 H Creatinine 1.42 H 1.41 H Est GFR ( Amer) 45 L 45 L Est GFR (Non-Af Amer) 37 L 37 L Glucose 191 H 208 H Calcium 9.6 9.7 Blood Type Antibody Screen 03/19/18 04:46 WBC RBC Hgb Hct MCV MCH MCHC RDW Plt Count Seg Neutrophils % Lymphocytes % Monocytes % Eosinophils % Basophils % Absolute Neutrophils Absolute Lymphocytes Absolute Monocytes Absolute Eosinophils Absolute Basophils Sodium Potassium Chloride Carbon Dioxide Anion Gap BUN Creatinine Est GFR ( Amer) Est GFR (Non-Af Amer) Glucose Calcium Blood Type O POSITIVE Antibody Screen NEGATIVE Impressions: Acute Abdomen Series 03/19/18 00:00 IMPRESSION: Dilated small bowel and stomach. Differential diagnosis includes small bowel ileus and low-grade small bowel obstruction. Chest X-Ray 03/19/18 00:00 IMPRESSION: Possible enteric tube tip at the expected gastroesophageal junction; consider advancement/replacement as clinically warranted. Assessment & Plan - Diagnosis (1) Abdominal pain Qualifiers: Abdominal location: lower abdomen, unspecified Qualified Code(s): R10.30 - Lower abdominal pain, unspecified Is this a current diagnosis for this admission?: Yes Plan: Improved with insertion of NG tube and IV zofran. Abdominal xrays showed possible early SBO or ileus. Last bowel movement was yesterday. She is on IV protonix due to hematemesis overnight. NG drainage is now greenish brown in color (2) Vomiting Qualifiers: Vomiting type: projectile vomiting Nausea presence: with nausea Qualified Code(s): R11.12 - Projectile vomiting Is this a current diagnosis for this admission?: Yes Plan: Resolved with NG tube insertion (3) Urinary tract infection Qualifiers: Urinary tract infection type: site unspecified Hematuria presence: without hematuria Qualified Code(s): N39.0 - Urinary tract infection, site not specified Is this a current diagnosis for this admission?: Yes Plan: Continue IV antibiotics culture is pending (4) Acute kidney injury superimposed on chronic kidney disease Is this a current diagnosis for this admission?: Yes (5) Altered mental status Qualifiers: Altered mental status type: somnolence Qualified Code(s): R40.0 - Somnolence Is this a current diagnosis for this admission?: Yes Plan: Resolved to baseline, likely due to UTI (6) Anemia in chronic kidney disease (CKD) Qualifiers: Chronic kidney disease stage: stage 4 (severe) Qualified Code(s): N18.4 - Chronic kidney disease, stage 4 (severe); D63.1 - Anemia in chronic kidney disease; D63.1 - Anemia in chronic kidney disease Is this a current diagnosis for this admission?: Yes Plan: Improving with IV hydration (7) C. difficile diarrhea Is this a current diagnosis for this admission?: Yes Plan: She is not having any diarrhea. Long history of c diff infection post fecal transplant (8) CAD (coronary artery disease) Qualifiers: Coronary Disease-Associated Artery/Lesion type: [place] artery [place] vs. transplanted heart: unspecified whether [place] or transplanted heart Associated angina: without angina Qualified Code(s): I25.10 - Atherosclerotic heart disease of [place] coronary artery without angina pectoris Is this a current diagnosis for this admission?: Yes Plan: Continue current medications (9) COPD (chronic obstructive pulmonary disease) Qualifiers: COPD type: unspecified COPD Qualified Code(s): J44.9 - Chronic obstructive pulmonary disease, unspecified Is this a current diagnosis for this admission?: Yes Plan: Continue inhalers (10) Chronic diastolic (congestive) heart failure Is this a current diagnosis for this admission?: Yes Plan: Presently still hypovolemic (11) Debility Is this a current diagnosis for this admission?: Yes Plan: PT (12) Depression Qualifiers: Depression Type: unspecified Qualified Code(s): F32.9 - Major depressive disorder, single episode, unspecified Is this a current diagnosis for this admission?: Yes Plan: Continue home meds (13) Diabetes Qualifiers: Diabetes mellitus type: type 2 Is this a current diagnosis for this admission?: Yes Plan: Will hold oral medications and daily insulin while NPO. Continue sliding scale - Time Time Spent with patient: 15-24 minutes Medications reviewed and adjusted accordingly: Yes Anticipated discharge: SNF
[2018-03-19] MEDS: FAMOTIDINE 20 MG TABLET NG SCH (09:33)
[2018-03-19] MEDS: CARVEDILOL 12.5 MG TABLET NG SCH ×2 (09:34→22:29)
[2018-03-19] MEDS: CHOLECALCIFEROL (D3) 1,000 UNIT TABLET NG SCH (09:34)
[2018-03-19] MEDS: AMLODIPINE BESYLATE 10 MG TABLET NG SCH (09:34)
[2018-03-19] MEDS: CEFEPIME 1 GM/D5W RTU 1 GM/50 ML RTUPB IV SCH ×2 (09:35→22:28)
[2018-03-19] MEDS: ASPIRIN 81 MG TABLET, CHEWABLE NG SCH (09:38)
[2018-03-19] MEDS: DOCUSATE SODIUM 100 MG CAPSULE PO SCH (09:38)
[2018-03-19] MEDS ORDERED: CETIRIZINE 10 MG TABLET NG SCH (10:00)
[2018-03-19] MEDS: OXYCODONE-ACETAMINOPHEN 5-325 MG TABLET NG PRN ×2 (11:52→22:32)
[2018-03-19] MEDS: ALPRAZOLAM 0.5 MG TABLET NG PRN (11:52)
[2018-03-19] MEDS: CETIRIZINE HCL ORAL SOLN 5 MG/5 ML UDCUP NG SCH (11:52)
[2018-03-19] MEDS ORDERED: VANCOMYCIN HCL INJ 500 MG VIAL NG SCH (12:00)
--- NOTE | 2018-03-19 16:03 | Progress Note ---
Provider Note Provider Note: ID Consult Note Asked to review patient's chart by Pharmacy. Pt not seen and examined. Reviewed provider reports, imaging reports, VS, lab results including microbiology. Ms. Meyer is a 67 yo woman who resides in a care home. She had a recent admission in December for diagnoses of influenza A infection and urinary tract infection with ESBL E coli. 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 Other PMH includes morbid obesity, CKD, CHF, CAD, HTN, HLD, DM, GUDELIA, and COPD per chart review. Ms. Meyer was admitted to the hospital on 03/15/18 after a recent hospitalization for pneumonia with recent increase in diarrhea, chronic abdominal pain, fever and altered mental status. Her ROS was limited by encephalopathy on admission. No abdominal tenderness was noted on exam. Tmax was 100.7 on 03/16. Her WBC count was 14.6k on presentation. She was noted to have TIFFANIE on CKD. Three bowel movements were documented on 03/16, and her stool tested PCR positive for C difficile toxin gene. Her urine culture grew >100k cfu E coli, two different isolates. She has been receiving treatment for diagnosis of complicated E coli UTI with cefepime. She also had received PO vancomycin on 03/17 and 03/18. Overnight between 03/18 and 03/19 she developed projectile vomiting and had an acute abdominal series read as showing dilated small bowel and stomach with differential diagnosis including small bowel ileus vs low-grade small bowel obstruction. No stools were recorded on 03/18 and . Impression/Recommendations 1. Possible complicated UTI with E coli - Given the patient's history of recurrent C. difficile infection and current colonization (if not disease) due to C difficile, limiting antibiotic exposure to the minimum necessary to treat other conditions is a priority. - The patient was suspected of having a complicated UTI on presentation; if that is still the clinical suspicion, recommend limiting treatment to 7 days in total and attempting to complete this treatment with an antibiotic that is less associated with C difficile infection, such as Zosyn or ertapenem 2 g IV q 24h ( higher dose given her obesity). - Other options of fosfomycin PO or Bactrim PO are not available to the patient currently due to ileus or obstruction, and gentamicin may not be a good choice due to her CKD and presentation with TIFFANIE on CKD. 2. Possible ileus due to Clostridium difficile infection - PCR for Clostridium difficile toxin is highly sensitive and can detect carriers/colonization without disease. Determining whether a positive stool toxin PCR represents colonization or disease/pathogenicity is based on clinical judgment. Disease due to C diff should be considered as the patient had presented with diarrhea, has had antibiotic exposure with cephalosporins, and has developed radiographic evidence of possible ileus. - If there is not another explanation for the patient developing ileus or if the patient clinically worsens, recommend treating the patient for ileus associated with C difficile infection with PO vancomycin 500 mg q6h and IV Flagyl 500 mg q8h IV for 10 days. If there is complete ileus, consider also administering vancomycin 500 mg q6h per retention enema if feasible. As always, these are suggestions or recommendations based on the available information in the patient's chart and cannot substitute for evaluation of the patient in person and clinical judgment related to this. Vishal Rojas MD [facility] pager [phone]
[2018-03-19] MEDS: LACTOBACILLUS ACIDOPHILUS 250 MG TAB NG SCH (17:53)
[2018-03-19] MEDS: ATORVASTATIN CALCIUM 20 MG TABLET NG SCH (22:29)
[2018-03-20] MEDS: 1/2 NORMAL SALINE 1,000 ML IV PRN (01:20)
[2018-03-20 05:08] LABS: ABSOLUTE BASOPHILS # (AUTO) 0.1 10^3/uL (0.0-0.2); ABSOLUTE EOSINOPHILS # (AUTO) 0.4 10^3/uL (0.0-0.6); ABSOLUTE MONOCYTES (AUTO) 0.9 10^3/uL (0.1-1.4); ABSOLUTE NEUT (AUTO) 3.7 10^3/uL (1.7-8.2); EOSINOPHILS % (AUTO) 5.1 % (0-6); HEMOGLOBIN 10.4 g/dL (12.0-15.5); MEAN CORPUSCULAR HEMOGLOBIN 30.5 pg (27.0-33.4); MEAN CORPUSCULAR HGB CONC 33.5 g/dL (32.0-36.0); MEAN CORPUSCULAR VOLUME 91 fl (80-97); MONOCYTES % (AUTO) 12.2 % (3-13); PLATELET COUNT 178 10^3/uL (150-450); RED BLOOD COUNT 3.41 10^6/uL (3.72-5.28); RED CELL DISTRIBUTION WIDTH 12.9 % (11.5-14.0); SEGMENTED NEUTROPHILS % (AUTO) 52.7 % (42-78); TOTAL CELLS COUNTED % (AUTO) 100 %
[2018-03-20] MEDS: LEVOTHYROXINE SODIUM 0.088 MG TABLET PO SCH (05:16)
[2018-03-20] MEDS: OXYCODONE-ACETAMINOPHEN 5-325 MG TABLET NG PRN ×2 (05:20→20:18)
[2018-03-20] MEDS: IPRATROPIUM/ALBUTEROL 0.5-2.5 MG/3 ML AMPUL NEB PRN (09:12)
[2018-03-20] MEDS ORDERED: ERTAPENEM SODIUM 2 GM in NORMAL SALINE 100 ML IV SCH (10:00)
[2018-03-20] MEDS ORDERED: NORMAL SALINE IV SCH (10:00)
[2018-03-20] MEDS ORDERED: ERTAPENEM SODIUM IV SCH (10:00)
[2018-03-20] MEDS: ONDANSETRON HCL INJ/PF 4 MG/2 ML SDV IV PRN ×2 (11:29→18:15)
--- NOTE | 2018-03-20 11:45 | RADIOLOGY REPORT (SQ) ---
EXAM DESCRIPTION: CT ABD/PELVIS ORAL ONLY COMPLETED DATE/TIME: 03/20/2018 10:57 am REASON FOR STUDY: possible small bowel obstruction COMPARISON: Abdominal CT scan dated August 2017 and acute abdomen films dated 03/19/2018 TECHNIQUE: CT scan of the abdomen and pelvis performed with oral contrast and no intravenous contras t. Images reviewed with lung, soft tissue, and bone windows. Reconstructed coronal and sagittal MPR i mages reviewed. All images stored on PACS. All CT scanners at this facility use dose modulation, iterative reconstruction, and/or weight based d osing when appropriate to reduce radiation dose to as low as reasonably achievable (ALARA). [facility]: Dose Right [facility]: CareDose [facility]: Dose Right [facility]: Teradose 4D [facility]: [email or web address] RADIATION DOSE: mGy. LIMITATIONS: Study is limited somewhat due to motion artifact and the patient's body habitus. FINDINGS: NON-CONTRASTED LIVER, SPLEEN, ADRENALS: Evaluation limited by lack of IV contrast. No iden tified significant masses. PANCREAS: No masses. No peripancreatic inflammatory changes. GALLBLADDER: Status post cholecystectomy RIGHT KIDNEY AND URETER: No suspicious masses. Assessment limited by lack of IV contrast. No signif icant calcifications. No hydronephrosis or hydroureter. LEFT KIDNEY AND URETER: No suspicious masses. Assessment limited by lack of IV contrast. No signifi cant calcifications. No hydronephrosis or hydroureter. AORTA AND RETROPERITONEUM: No aneurysm. No retroperitoneal masses or adenopathy. BOWEL AND PERITONEAL CAVITY: No obvious masses or inflammatory changes. No free fluid. No evidence f or a small bowel obstruction is seen. APPENDIX: Status post appendectomy PELVIS, BLADDER, AND ABDOMINAL WALL: No abnormal pelvic masses. No abdominal wall hernias. There is some relative laxity in the anterior abdominal wall. Bladder unremarkable. BONES: Extensive degenerative changes are identified in the lumbar spine OTHER: No other significant finding. LOWER CHEST: Tiny left pleural effusion is identified. There is some minimal airspace consolidation in the lung bases most consistent with atelectatic changes. IMPRESSION: No CT evidence for a small bowel obstruction. No other significant intra-abdominal or pelvic abnormalities were identified. Other findings as noted above TECHNICAL DOCUMENTATION: JOB ID: [id number] Quality ID # [id number]: Final reports with documentation of one or more dose reduction techniques (e.g., Au tomated exposure control, adjustment of the mA and/or kV according to patient size, use of iterative reconstruction technique) 2010 [employer]- All Rights Reserved Reading location - IP/workstation name: [email or web address]
[2018-03-20] MEDS: AMLODIPINE BESYLATE 10 MG TABLET NG SCH (13:06)
[2018-03-20] MEDS: LACTOBACILLUS ACIDOPHILUS 250 MG TAB NG SCH ×2 (13:06→18:15)
[2018-03-20] MEDS: CHOLECALCIFEROL (D3) 1,000 UNIT TABLET NG SCH (13:06)
[2018-03-20] MEDS: CETIRIZINE HCL ORAL SOLN 5 MG/5 ML UDCUP NG SCH (13:07)
[2018-03-20] MEDS: CARVEDILOL 12.5 MG TABLET NG SCH ×2 (13:07→22:49)
[2018-03-20] MEDS: METRONIDAZOLE 500 MG/NS RTU 100 ML IV SCH ×2 (13:07→18:15)
[2018-03-20] MEDS: FAMOTIDINE 20 MG TABLET NG SCH (13:07)
[2018-03-20] MEDS: VANCOMYCIN HCL INJ 500 MG VIAL PO SCH ×2 (13:07→18:15)
[2018-03-20] MEDS: DOCUSATE SODIUM 100 MG CAPSULE PO SCH (13:08)
[2018-03-20] MEDS: ASPIRIN 81 MG TABLET, CHEWABLE NG SCH (13:08)
[2018-03-20] MEDS: NORMAL SALINE 100 ML with PANTOPRAZOLE SODIUM 80 MG IV PRN ×2 (19:36)
[2018-03-20] MEDS: ALPRAZOLAM 0.5 MG TABLET NG PRN (21:34)
[2018-03-20] MEDS: ATORVASTATIN CALCIUM 20 MG TABLET NG SCH (22:50)
[2018-03-21] MEDS: VANCOMYCIN HCL INJ 500 MG VIAL PO SCH ×5 (00:50→23:43)
[2018-03-21] MEDS: METRONIDAZOLE 500 MG/NS RTU 100 ML IV SCH ×3 (00:50→12:36)
[2018-03-21] MEDS: OXYCODONE-ACETAMINOPHEN 5-325 MG TABLET NG PRN (02:43)
[2018-03-21 05:06] LABS: ABSOLUTE EOSINOPHILS # (AUTO) 0.5 10^3/uL (0.0-0.6); ABSOLUTE LYMPHOCYTES (AUTO) 1.9 10^3/uL (0.5-4.7); ABSOLUTE MONOCYTES (AUTO) 0.8 10^3/uL (0.1-1.4); ABSOLUTE NEUT (AUTO) 4.2 10^3/uL (1.7-8.2); BASOPHILS % (AUTO) 0.6 % (0-2); EOSINOPHILS % (AUTO) 6.6 % (0-6); HEMATOCRIT 30.9 % (36.0-47.0); HEMOGLOBIN 10.3 g/dL (12.0-15.5); LYMPHOCYTES % (AUTO) 25.5 % (13-45); MEAN CORPUSCULAR HEMOGLOBIN 30.2 pg (27.0-33.4); MEAN CORPUSCULAR HGB CONC 33.3 g/dL (32.0-36.0); MEAN CORPUSCULAR VOLUME 91 fl (80-97); MONOCYTES % (AUTO) 11.4 % (3-13); PLATELET COUNT 200 10^3/uL (150-450); RED BLOOD COUNT 3.41 10^6/uL (3.72-5.28); RED CELL DISTRIBUTION WIDTH 12.9 % (11.5-14.0); SEGMENTED NEUTROPHILS % (AUTO) 55.9 % (42-78); TOTAL CELLS COUNTED % (AUTO) 100 %; WHITE BLOOD COUNT 7.5 10^3/uL (4.0-10.5)
[2018-03-21 05:27] LABS: ANION GAP 12 (5-19); BLOOD UREA NITROGEN 30 mg/dL (7-20); CALCIUM 9.5 mg/dL (8.4-10.2); CARBON DIOXIDE 34 mmol/L (22-30); CHLORIDE 99 mmol/L (98-107); GLUCOSE 85 mg/dL (75-110); POTASSIUM 3.7 mmol/L (3.6-5.0); SODIUM 144.7 mmol/L (137-145)
[2018-03-21] MEDS: LEVOTHYROXINE SODIUM 0.088 MG TABLET PO SCH (05:43)
[2018-03-21] MEDS ORDERED: ERTAPENEM SODIUM 2 GM in NORMAL SALINE 100 ML IV SCH (10:00)
[2018-03-21] MEDS: 1/2 NORMAL SALINE 1,000 ML IV PRN (10:09)
[2018-03-21] MEDS: AMLODIPINE BESYLATE 10 MG TABLET NG SCH (10:12)
[2018-03-21] MEDS: ASPIRIN 81 MG TABLET, CHEWABLE NG SCH (10:12)
[2018-03-21] MEDS: FAMOTIDINE 20 MG TABLET NG SCH (10:12)
[2018-03-21] MEDS: CHOLECALCIFEROL (D3) 1,000 UNIT TABLET NG SCH (10:12)
[2018-03-21] MEDS: LACTOBACILLUS ACIDOPHILUS 250 MG TAB NG SCH (10:12)
[2018-03-21] MEDS: CARVEDILOL 12.5 MG TABLET NG SCH (10:12)
[2018-03-21] MEDS: DOCUSATE SODIUM 100 MG CAPSULE PO SCH (10:13)
[2018-03-21] MEDS: CETIRIZINE HCL ORAL SOLN 5 MG/5 ML UDCUP NG SCH (10:13)
--- NOTE | 2018-03-21 10:44 | PDOC PROGRESS REPORT ---
Subjective Progress Note for:: 03/20/18 Subjective:: Patient is awake and alert and appears to be back at her baseline mental status. She denies nausea or abdominal pain. She states she is having pain in her IV site. She denies any chest pain or shortness of breath at rest. She denies any significiant arthralgias or myalgias at the present time Remaining review of systems are negative Reason For Visit: SEPSIS/TIFFANIE/DEHYDRATION Physical Exam Vital Signs: Temp Pulse Resp BP Pulse Ox 97.9 F 88 20 149/61 H 98 03/20/18 08:16 03/20/18 09:12 03/20/18 09:12 03/20/18 08:16 03/20/18 09:12 Intake & Output 03/19/18 03/20/18 03/21/18 06:59 06:59 06:59 Intake Total 2607 2700 Output Total 480 Balance 2607 2220 Weight 142.4 kg 143.3 kg General appearance: PRESENT: no acute distress, morbidly obese, well-developed, well-nourished Head exam: PRESENT: atraumatic, normocephalic Eye exam: PRESENT: conjunctiva pink, EOMI, PERRLA. ABSENT: scleral icterus Ear exam: PRESENT: normal external ear exam Mouth exam: PRESENT: moist, tongue midline Neck exam: ABSENT: carotid bruit, JVD, lymphadenopathy, thyromegaly Respiratory exam: PRESENT: clear to auscultation emperatriz. ABSENT: rales, rhonchi, wheezes Cardiovascular exam: PRESENT: RRR. ABSENT: diastolic murmur, rubs, systolic murmur Pulses: PRESENT: normal carotid pulses, normal radial pulses Vascular exam: PRESENT: normal capillary refill GI/Abdominal exam: PRESENT: hypoactive bowel sounds - epigastric to palpation, soft, tenderness Rectal exam: PRESENT: deferred Extremities exam: PRESENT: full ROM. ABSENT: calf tenderness, clubbing, pedal edema Musculoskeletal exam: PRESENT: full ROM, normal inspection Neurological exam: PRESENT: alert, awake, oriented to person, oriented to place , oriented to time, oriented to situation, CN II-XII grossly intact. ABSENT: motor sensory deficit Psychiatric exam: PRESENT: flat affect Skin exam: PRESENT: dry, intact, warm. ABSENT: cyanosis, rash Results Laboratory Results: 03/20/18 04:17 03/19/18 03:38 03/20/18 04:17 WBC 7.0 RBC 3.41 L Hgb 10.4 L Hct 31.0 L MCV 91 MCH 30.5 MCHC 33.5 RDW 12.9 Plt Count 178 Seg Neutrophils % 52.7 Lymphocytes % 29.0 Monocytes % 12.2 Eosinophils % 5.1 Basophils % 1.0 Absolute Neutrophils 3.7 Absolute Lymphocytes 2.0 Absolute Monocytes 0.9 Absolute Eosinophils 0.4 Absolute Basophils 0.1 Impressions: Acute Abdomen Series 03/19/18 00:00 IMPRESSION: Dilated small bowel and stomach. Differential diagnosis includes small bowel ileus and low-grade small bowel obstruction. Chest X-Ray 03/19/18 00:00 IMPRESSION: Possible enteric tube tip at the expected gastroesophageal junction; consider advancement/replacement as clinically warranted. Assessment & Plan - Diagnosis (1) Abdominal pain Qualifiers: Abdominal location: lower abdomen, unspecified Qualified Code(s): R10.30 - Lower abdominal pain, unspecified Is this a current diagnosis for this admission?: Yes Plan: Improved with insertion of NG tube and IV zofran. No further hematemesis. She is prepping for abdominal CT with oral contrast only due to IV site issues.NG drainage is now greenish brown in color (2) Vomiting Qualifiers: Vomiting type: projectile vomiting Nausea presence: with nausea Qualified Code(s): R11.12 - Projectile vomiting Is this a current diagnosis for this admission?: Yes Plan: Resolved with NG tube insertion (3) Urinary tract infection Qualifiers: Urinary tract infection type: site unspecified Hematuria presence: without hematuria Qualified Code(s): N39.0 - Urinary tract infection, site not specified Is this a current diagnosis for this admission?: Yes Plan: Continue IV antibiotics culture is pending (4) Acute kidney injury superimposed on chronic kidney disease Is this a current diagnosis for this admission?: Yes Plan: Improving (5) Altered mental status Qualifiers: Altered mental status type: somnolence Qualified Code(s): R40.0 - Somnolence Is this a current diagnosis for this admission?: Yes Plan: Resolved to baseline, likely due to UTI (6) Anemia in chronic kidney disease (CKD) Qualifiers: Chronic kidney disease stage: stage 4 (severe) Qualified Code(s): N18.4 - Chronic kidney disease, stage 4 (severe); D63.1 - Anemia in chronic kidney disease; D63.1 - Anemia in chronic kidney disease Is this a current diagnosis for this admission?: Yes Plan: Improving with IV hydration (7) C. difficile diarrhea Is this a current diagnosis for this admission?: Yes Plan: She is not having any diarrhea. Long history of c diff infection post fecal transplant.[facility] recommend oral vancomycin and IV flagyl (8) CAD (coronary artery disease) Qualifiers: Coronary Disease-Associated Artery/Lesion type: [place] artery [place] vs. transplanted heart: unspecified whether [place] or transplanted heart Associated angina: without angina Qualified Code(s): I25.10 - Atherosclerotic heart disease of [place] coronary artery without angina pectoris Is this a current diagnosis for this admission?: Yes Plan: Continue current medications (9) COPD (chronic obstructive pulmonary disease) Qualifiers: COPD type: unspecified COPD Qualified Code(s): J44.9 - Chronic obstructive pulmonary disease, unspecified Is this a current diagnosis for this admission?: Yes Plan: Continue inhalers (10) Chronic diastolic (congestive) heart failure Is this a current diagnosis for this admission?: Yes Plan: Presently still hypovolemic (11) Debility Is this a current diagnosis for this admission?: Yes Plan: PT (12) Depression Qualifiers: Depression Type: unspecified Qualified Code(s): F32.9 - Major depressive disorder, single episode, unspecified Is this a current diagnosis for this admission?: Yes Plan: Continue home meds (13) Diabetes Qualifiers: Diabetes mellitus type: type 2 Is this a current diagnosis for this admission?: Yes Plan: Will hold oral medications and daily insulin while NPO. Continue sliding scale - Time Time Spent with patient: 25-34 minutes Total Critical Time (Minutes): 15 Medications reviewed and adjusted accordingly: Yes Anticipated discharge: SNF
[2018-03-21] MEDS ORDERED: ACETAMINOPHEN SOLN 325 MG/10.15 ML UDCUP PO PRN (13:00)
[2018-03-21] MEDS ORDERED: ALPRAZOLAM 0.5 MG TABLET PO PRN (13:00)
[2018-03-21] MEDS ORDERED: DEXTROSE 40% GEL 15 GM TUBE PO PRN ×2 (13:00)
[2018-03-21] MEDS: PREGABALIN 75 MG CAPSULE PO SCH ×2 (14:06→21:47)
--- NOTE | 2018-03-21 15:33 | PDOC PROGRESS REPORT ---
Subjective Progress Note for:: 03/21/18 Subjective:: The patient is a 67-year-old female with a past medical history of Morbid obesity Chronic kidney disease Coronary artery disease Hypertension Hyperlipidemia Diabetes Obstructive sleep apnea COPD Systolic and diastolic CHF. 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 coli Influenza a in December 2017 She was admitted to the hospital on March 15 with abdominal pain diarrhea fever and confusion and was found to have acute renal failure and urinary tract infection for which she was started on cefepime. Stool PCR was positive for C. difficile toxin and she was given p.o. vancomycin on March 17 and . On March 18 she developed projectile vomiting and x-ray of the abdomen showed ileus versus low-grade small bowel obstruction. NG tube was inserted and she was given IV Zofran and IV Protonix. The patient had some loose stools and C diff wwas positive so she was started on IV Flagyl and PO Vanc. CT abdomen shows no bowel obstruction. NG will be discontinued. No e/o GI bleed. Stop protonix gtt Last day of Ertapenem today. Reason For Visit: SEPSIS/TIFFANIE/DEHYDRATION Physical Exam Vital Signs: Temp Pulse Resp BP Pulse Ox 98.0 F 67 20 148/58 H 99 03/21/18 07:35 03/21/18 07:35 03/21/18 07:35 03/21/18 07:35 03/21/18 07:35 Intake & Output 03/20/18 03/21/18 03/22/18 06:59 06:59 06:59 Intake Total 2700 1720 Output Total 480 Balance 2220 1720 Weight 143.3 kg General appearance: PRESENT: obese Head exam: PRESENT: normocephalic Eye exam: ABSENT: scleral icterus Ear exam: PRESENT: normal external ear exam Mouth exam: PRESENT: moist Neck exam: ABSENT: tracheal deviation Respiratory exam: PRESENT: symmetrical, unlabored. ABSENT: crackles Cardiovascular exam: PRESENT: RRR GI/Abdominal exam: PRESENT: normal bowel sounds, soft. ABSENT: tenderness Rectal exam: PRESENT: deferred Gentrourinary exam: ABSENT: indwelling catheter Extremities exam: ABSENT: pedal edema Neurological exam: PRESENT: alert, awake, oriented to person, oriented to place Psychiatric exam: PRESENT: appropriate affect Results Laboratory Results: 03/21/18 04:23 03/21/18 04:23 03/21/18 03/21/18 04:23 04:23 WBC 7.5 RBC 3.41 L Hgb 10.3 L Hct 30.9 L MCV 91 MCH 30.2 MCHC 33.3 RDW 12.9 Plt Count 200 Seg Neutrophils % 55.9 Lymphocytes % 25.5 Monocytes % 11.4 Eosinophils % 6.6 H Basophils % 0.6 Absolute Neutrophils 4.2 Absolute Lymphocytes 1.9 Absolute Monocytes 0.8 Absolute Eosinophils 0.5 Absolute Basophils 0.0 Sodium 144.7 Potassium 3.7 Chloride 99 Carbon Dioxide 34 H Anion Gap 12 BUN 30 H Creatinine 1.30 H Est GFR ( Amer) 49 L Est GFR (Non-Af Amer) 41 L Glucose 85 Calcium 9.5 Impressions: Acute Abdomen Series 03/19/18 00:00 IMPRESSION: Dilated small bowel and stomach. Differential diagnosis includes small bowel ileus and low-grade small bowel obstruction. Chest X-Ray 03/19/18 00:00 IMPRESSION: Possible enteric tube tip at the expected gastroesophageal junction; consider advancement/replacement as clinically warranted. Abdomen/Pelvis CT 03/20/18 00:00 IMPRESSION: No CT evidence for a small bowel obstruction. No other significant intra-abdominal or pelvic abnormalities were identified. Other findings as noted above Assessment & Plan - Diagnosis (1) Urinary tract infection Qualifiers: Urinary tract infection type: site unspecified Hematuria presence: without hematuria Qualified Code(s): N39.0 - Urinary tract infection, site not specified Is this a current diagnosis for this admission?: Yes Plan: Was initially on cefepime which was switched to ertapenem. Today is day 7 of antibiotics. (2) Acute encephalopathy Is this a current diagnosis for this admission?: Yes Plan: Due to urinary tract infection and acute renal failure. Improving. (3) Acute kidney injury superimposed on chronic kidney disease Is this a current diagnosis for this admission?: Yes Plan: Improving with IV fluids. Continue to monitor. (4) Anemia in chronic kidney disease (CKD) Qualifiers: Chronic kidney disease stage: stage 4 (severe) Qualified Code(s): N18.4 - Chronic kidney disease, stage 4 (severe); D63.1 - Anemia in chronic kidney disease; D63.1 - Anemia in chronic kidney disease Is this a current diagnosis for this admission?: Yes Plan: Stable. Monitor. (5) CHF (congestive heart failure) Is this a current diagnosis for this admission?: Yes Plan: Stable. Monitor intake and output closely. Diuretics on hold due to acute on chronic kidney failure. Continue Coreg. (6) COPD (chronic obstructive pulmonary disease) Qualifiers: COPD type: unspecified COPD Qualified Code(s): J44.9 - Chronic obstructive pulmonary disease, unspecified Is this a current diagnosis for this admission?: Yes Plan: Stable. Duo nebs as needed. (7) Diabetes mellitus, type II Qualifiers: Diabetes mellitus long winder tender insulin use: unspecified correction insulin use status Diabetes mellitus complication detail: with nephropathy Is this a current diagnosis for this admission?: Yes Plan: NPO, Insulin sliding scale. Oral hypoglycemic agents on hold. (8) Abdominal pain with vomiting Is this a current diagnosis for this admission?: Yes Plan: Due to ileus- resolved. D/c NG tube (9) C. difficile diarrhea Is this a current diagnosis for this admission?: Yes Plan: On p.o. vancomycin and IV Flagyl. Monitor for diarrhea. (10) Hypertension Qualifiers: Hypertension type: essential hypertension Qualified Code(s): I10 - Essential (primary) hypertension Is this a current diagnosis for this admission?: Yes Plan: Stable on amlodipine and Coreg. - Time Time Spent with patient: 35 or more minutes
[2018-03-21] MEDS: LACTOBACILLUS ACIDOPHILUS 250 MG TAB PO SCH (17:30)
[2018-03-21] MEDS: IPRATROPIUM/ALBUTEROL 0.5-2.5 MG/3 ML AMPUL NEB PRN (21:47)
[2018-03-21] MEDS: TRAZODONE HCL 50 MG TABLET PO SCH (21:47)
[2018-03-21] MEDS: ATORVASTATIN CALCIUM 20 MG TABLET PO SCH (21:47)
[2018-03-21] MEDS: OXYCODONE-ACETAMINOPHEN 5-325 MG TABLET PO PRN (21:48)
[2018-03-21] MEDS: CARVEDILOL 12.5 MG TABLET PO SCH (21:48)
[2018-03-22] MEDS: 1/2 NORMAL SALINE 1,000 ML IV PRN (00:56)
[2018-03-22] MEDS: OXYCODONE-ACETAMINOPHEN 5-325 MG TABLET PO PRN (03:17)
[2018-03-22] MEDS: PREGABALIN 75 MG CAPSULE PO SCH ×3 (05:15→22:49)
[2018-03-22] MEDS: LEVOTHYROXINE SODIUM 0.088 MG TABLET PO SCH (05:16)
[2018-03-22] MEDS: VANCOMYCIN HCL INJ 500 MG VIAL PO SCH ×3 (05:16→17:22)
[2018-03-22] MEDS ORDERED: LANSOPRAZOLE 15 MG TAB.RAP.DR PO SCH (06:00)
[2018-03-22] MEDS: FAMOTIDINE 20 MG TABLET PO SCH (09:58)
[2018-03-22] MEDS: CETIRIZINE HCL ORAL SOLN 5 MG/5 ML UDCUP PO SCH (09:59)
[2018-03-22] MEDS: DOCUSATE SODIUM 100 MG CAPSULE PO SCH (09:59)
[2018-03-22] MEDS: LACTOBACILLUS ACIDOPHILUS 250 MG TAB PO SCH ×2 (09:59→17:23)
[2018-03-22] MEDS: CHOLECALCIFEROL (D3) 1,000 UNIT TABLET PO SCH (09:59)
[2018-03-22] MEDS: ASPIRIN 81 MG TABLET, CHEWABLE PO SCH (09:59)
[2018-03-22] MEDS: AMLODIPINE BESYLATE 10 MG TABLET PO SCH (09:59)
[2018-03-22] MEDS: CARVEDILOL 12.5 MG TABLET PO SCH ×2 (10:00→22:46)
[2018-03-22 10:28] LABS: HEMOGLOBIN 9.9 g/dL (12.0-15.5); MEAN CORPUSCULAR HEMOGLOBIN 30.3 pg (27.0-33.4); MEAN CORPUSCULAR VOLUME 92 fl (80-97); PLATELET COUNT 214 10^3/uL (150-450); RED BLOOD COUNT 3.27 10^6/uL (3.72-5.28); WHITE BLOOD COUNT 7.7 10^3/uL (4.0-10.5)
[2018-03-22 10:57] LABS: ALANINE AMINOTRANSFERASE 25 U/L (9-52); ALBUMIN 3.1 g/dL (3.5-5.0); ALKALINE PHOSPHATASE 45 U/L (38-126); ANION GAP 8 (5-19); ASPARTATE AMINO TRANSFERASE 26 U/L (14-36); BILIRUBIN,DIRECT 0.2 mg/dL (0.0-0.4); BILIRUBIN,TOTAL 0.2 mg/dL (0.2-1.3); BLOOD UREA NITROGEN 27 mg/dL (7-20); CALCIUM 9.6 mg/dL (8.4-10.2); CARBON DIOXIDE 34 mmol/L (22-30); CHLORIDE 98 mmol/L (98-107); GLUCOSE 161 mg/dL (75-110); POTASSIUM 3.5 mmol/L (3.6-5.0); SODIUM 139.7 mmol/L (137-145); TOTAL PROTEIN 6.3 g/dL (6.3-8.2)
[2018-03-22] MEDS ORDERED: BENZOCAINE/MENTHOL SORE THROAT LOZENGE BUCCAL ONE (11:44)
[2018-03-22] MEDS ORDERED: POTASSIUM CHLORIDE 20 MEQ/15 ML UDCUP PO ONE (12:04)
[2018-03-22] MEDS ORDERED: PHENOL/SODIUM PHENOLATE 100 SPRAY/177 ML BOTTLE PO PRN (12:30)
--- NOTE | 2018-03-22 15:50 | PDOC PROGRESS REPORT ---
Subjective Progress Note for:: 03/22/18 Subjective:: The patient is a 67-year-old female with a past medical history of Morbid obesity Chronic kidney disease Coronary artery disease Hypertension Hyperlipidemia Diabetes Obstructive sleep apnea COPD Systolic and diastolic CHF. 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 coli Influenza a in December 2017 She was admitted to the hospital on March 15 with abdominal pain diarrhea fever and confusion and was found to have acute renal failure and urinary tract infection for which she was started on cefepime. Stool PCR was positive for C. difficile toxin and she was given p.o. vancomycin on March 17 and . On March 18 she developed projectile vomiting and x-ray of the abdomen showed ileus versus low-grade small bowel obstruction. NG tube was inserted and she was given IV Zofran and IV Protonix. The patient had some loose stools and C diff wwas positive so she was started on IV Flagyl and PO Vanc. CT abdomen showed no bowel obstruction. NG was discontinued. Diet advanced. She is bedbound and resides in a SNF. Completed a course of Ertapenem for UTI. Reason For Visit: SEPSIS/TIFFANIE/DEHYDRATION Physical Exam Vital Signs: Temp Pulse Resp BP Pulse Ox 97.5 F 60 16 127/58 H 94 03/22/18 11:16 03/22/18 14:00 03/22/18 11:00 03/22/18 11:16 03/22/18 11:16 Intake & Output 03/21/18 03/22/18 03/23/18 06:59 06:59 06:59 Intake Total 1720 4581 857 Balance 1720 4581 857 Weight 147.1 kg General appearance: PRESENT: morbidly obese Head exam: PRESENT: normocephalic Eye exam: ABSENT: scleral icterus Mouth exam: PRESENT: moist Respiratory exam: PRESENT: rhonchi, symmetrical, unlabored Cardiovascular exam: PRESENT: RRR GI/Abdominal exam: PRESENT: normal bowel sounds, soft. ABSENT: tenderness Rectal exam: PRESENT: deferred Extremities exam: ABSENT: pedal edema Neurological exam: PRESENT: alert, awake Psychiatric exam: PRESENT: appropriate affect Results Laboratory Results: 03/22/18 10:05 03/22/18 10:05 03/22/18 03/22/18 10:05 10:05 WBC 7.7 RBC 3.27 L Hgb 9.9 L Hct 30.0 L MCV 92 MCH 30.3 MCHC 33.0 RDW 13.0 Plt Count 214 Sodium 139.7 Potassium 3.5 L Chloride 98 Carbon Dioxide 34 H Anion Gap 8 BUN 27 H Creatinine 1.32 H Est GFR ( Amer) 48 L Est GFR (Non-Af Amer) 40 L Glucose 161 H Calcium 9.6 Total Bilirubin 0.2 AST 26 ALT 25 Alkaline Phosphatase 45 Total Protein 6.3 Albumin 3.1 L Impressions: Acute Abdomen Series 03/19/18 00:00 IMPRESSION: Dilated small bowel and stomach. Differential diagnosis includes small bowel ileus and low-grade small bowel obstruction. Chest X-Ray 03/19/18 00:00 IMPRESSION: Possible enteric tube tip at the expected gastroesophageal junction; consider advancement/replacement as clinically warranted. Abdomen/Pelvis CT 03/20/18 00:00 IMPRESSION: No CT evidence for a small bowel obstruction. No other significant intra-abdominal or pelvic abnormalities were identified. Other findings as noted above Assessment & Plan - Diagnosis (1) Urinary tract infection Qualifiers: Urinary tract infection type: site unspecified Hematuria presence: without hematuria Qualified Code(s): N39.0 - Urinary tract infection, site not specified Is this a current diagnosis for this admission?: Yes Plan: Was initially on cefepime which was switched to ertapenem. Completed 7 days of antibiotics. (2) Acute encephalopathy Is this a current diagnosis for this admission?: Yes Plan: Due to urinary tract infection and acute renal failure. Improving. (3) Acute kidney injury superimposed on chronic kidney disease Is this a current diagnosis for this admission?: Yes Plan: Improved with IV fluids. Continue to monitor. (4) Anemia in chronic kidney disease (CKD) Qualifiers: Chronic kidney disease stage: stage 4 (severe) Qualified Code(s): N18.4 - Chronic kidney disease, stage 4 (severe); D63.1 - Anemia in chronic kidney disease; D63.1 - Anemia in chronic kidney disease Is this a current diagnosis for this admission?: Yes Plan: Stable. Monitor. (5) CHF (congestive heart failure) Is this a current diagnosis for this admission?: Yes Plan: Stable. Monitor intake and output closely. Diuretics on hold due to acute on chronic kidney failure. Continue Coreg. (6) COPD (chronic obstructive pulmonary disease) Qualifiers: COPD type: unspecified COPD Qualified Code(s): J44.9 - Chronic obstructive pulmonary disease, unspecified Is this a current diagnosis for this admission?: Yes Plan: Stable. Duo nebs as needed. (7) Diabetes mellitus, type II Qualifiers: Diabetes mellitus prison insulin use: unspecified prison insulin use status Diabetes mellitus complication detail: with nephropathy Is this a current diagnosis for this admission?: Yes Plan: Continue Insulin sliding scale. Oral hypoglycemic agents on hold. (8) Abdominal pain with vomiting Is this a current diagnosis for this admission?: Yes Plan: Due to ileus- resolved. (9) C. difficile diarrhea Is this a current diagnosis for this admission?: Yes Plan: On p.o. Vancomycin. Monitor for diarrhea. (10) Hypertension Qualifiers: Hypertension type: essential hypertension Qualified Code(s): I10 - Essential (primary) hypertension Is this a current diagnosis for this admission?: Yes Plan: Stable on amlodipine and Coreg. - Time Time Spent with patient: 35 or more minutes
[2018-03-22] MEDS ORDERED: DEXTROSE 40% GEL 15 GM TUBE PO PRN ×2 (18:56)
[2018-03-22] MEDS ORDERED: DEXTROSE 50%-WATER 25 GM/50 ML DISP.SYRIN IV PRN ×2 (18:56)
[2018-03-22] MEDS ORDERED: GLUCAGON,HUMAN RECOMB 1 MG INJ IM PRN (18:56)
[2018-03-22] MEDS: INSULIN LISPRO 100 UNIT/ML 3 ML VIAL SUBCUT PRN (19:38)
[2018-03-22] MEDS: ATORVASTATIN CALCIUM 20 MG TABLET PO SCH (22:49)
[2018-03-22] MEDS: TRAZODONE HCL 50 MG TABLET PO SCH (22:51)
[2018-03-23] MEDS: VANCOMYCIN HCL INJ 500 MG VIAL PO SCH ×4 (00:15→17:25)
[2018-03-23] MEDS: ONDANSETRON HCL INJ/PF 4 MG/2 ML SDV IV PRN (05:20)
[2018-03-23] MEDS: LEVOTHYROXINE SODIUM 0.088 MG TABLET PO SCH (06:34)
[2018-03-23] MEDS: PREGABALIN 75 MG CAPSULE PO SCH ×3 (06:34→22:02)
[2018-03-23] MEDS ORDERED: METRONIDAZOLE 500 MG/NS RTU 500 MG in CONTAINER,EMPTY 1 EACH IV SCH (09:15)
[2018-03-23] MEDS ORDERED: FUROSEMIDE INJ/PF 20 MG/2 ML SDV IV ONE (09:25)
[2018-03-23] MEDS ORDERED: FUROSEMIDE INJ/PF 40 MG/4 ML SDV IV ONE (10:30)
[2018-03-23] MEDS: ASPIRIN 81 MG TABLET, CHEWABLE PO SCH (10:51)
[2018-03-23] MEDS: FAMOTIDINE 20 MG TABLET PO SCH (10:51)
[2018-03-23] MEDS: DOCUSATE SODIUM 100 MG CAPSULE PO SCH (10:51)
[2018-03-23] MEDS: CHOLECALCIFEROL (D3) 1,000 UNIT TABLET PO SCH (10:52)
[2018-03-23] MEDS: LACTOBACILLUS ACIDOPHILUS 250 MG TAB PO SCH ×2 (10:52→17:29)
[2018-03-23] MEDS: CARVEDILOL 12.5 MG TABLET PO SCH ×2 (10:52→22:02)
[2018-03-23] MEDS: AMLODIPINE BESYLATE 10 MG TABLET PO SCH (10:52)
[2018-03-23] MEDS: METRONIDAZOLE 500 MG/NS RTU 100 ML IV SCH ×2 (10:52→17:23)
[2018-03-23] MEDS: CETIRIZINE HCL ORAL SOLN 5 MG/5 ML UDCUP PO SCH (10:55)
[2018-03-23] MEDS: SODIUM CHLORIDE NASAL SPRAY 44 ML NASL SCH ×3 (11:02→22:04)
[2018-03-23] MEDS: FLUTICASONE NASAL SPRAY 50 MCG/SPRY 120 SPRAY/16 GM NASL SCH (11:02)
[2018-03-23] MEDS: IPRATROPIUM/ALBUTEROL 0.5-2.5 MG/3 ML AMPUL NEB PRN (11:25)
[2018-03-23] MEDS ORDERED: FUROSEMIDE INJ/PF 40 MG/4 ML SDV ONE (14:45)
--- NOTE | 2018-03-23 15:36 | RADIOLOGY REPORT (SQ) ---
EXAM DESCRIPTION: CHEST SINGLE VIEW COMPLETED DATE/TIME: 03/23/2018 3:25 pm REASON FOR STUDY: shortness of breath COMPARISON: AP chest 03/19/2018, 11/25/2017 EXAM PARAMETERS: NUMBER OF VIEWS: One view. TECHNIQUE: Single frontal radiographic view of the chest acquired. RADIATION DOSE: NA LIMITATIONS: Morbidly obese patient, respiratory motion artifact, AP portable chest film FINDINGS: LUNGS AND PLEURA: No gross dense consolidation. No pleural effusion. Pulmonary vascular congestion is present MEDIASTINUM AND HILAR STRUCTURES: No masses. Contour normal. HEART AND VASCULAR STRUCTURES: Stable marked cardiomegaly BONES: No acute findings. HARDWARE: None in the chest. OTHER: No other significant finding. IMPRESSION: Very limited study demonstrates stable cardiomegaly and pulmonary vascular congestion. TECHNICAL DOCUMENTATION: JOB ID: [id number] [employer]- All Rights Reserved Reading location - IP/workstation name: [email or web address]
[2018-03-23] MEDS ORDERED: VANCOMYCIN HCL 0 MG in DEXTROSE 5%-WATER 250 ML IV NR (16:30)
[2018-03-23 17:24] LABS: ARTERIAL BLOOD BASE EXCESS 5.1 mmol/L; ARTERIAL BLOOD H2CO3 2.44 mmol/L (1.05-1.35); ARTERIAL BLOOD HCO3 35.3 mmol/L (20-26); ARTERIAL BLOOD O2 SATURATION 99.3 % (94-98); ARTERIAL BLOOD PH 7.26 (7.35-7.45); ARTERIAL BLOOD PO2 220.6 mmHg (80-100); ARTERIAL BLOOD TOTAL CO2 37.8 mmol/L (21-25)
[2018-03-23 17:25] LABS: ARTERIAL BLOOD FIO2 4L
[2018-03-23] MEDS ORDERED: LORAZEPAM INJ 2 MG/1 ML VIAL IV PRN (17:45)
[2018-03-23] MEDS: PIPERACILLIN SODIUM/TAZOBACTAM 4.5 GM in NORMAL SALINE 100 ML IV SCH (18:36)
--- NOTE | 2018-03-23 20:38 | PDOC PROGRESS REPORT ---
Subjective Progress Note for:: 03/23/18 Subjective:: Patient has had a difficult time breathing today. No chest pain. She is feeling a little bit anxious. She thinks she slept well. She does not know whether she is moved her bowels. No dysuria. She is feeling overall weak and a little bit tired today. Reason For Visit: SEPSIS/TIFFANIE/DEHYDRATION Physical Exam Vital Signs: Temp Pulse Resp BP Pulse Ox 97.6 F 82 16 146/59 H 100 03/23/18 16:47 03/23/18 16:47 03/23/18 17:40 03/23/18 16:47 03/23/18 17:40 Intake & Output 03/22/18 03/23/18 03/24/18 06:59 06:59 06:59 Intake Total 4581 1888 930 Output Total 500 Balance 4581 1888 430 Weight 147.1 kg 145 kg General appearance: PRESENT: mild distress, morbidly obese Head exam: PRESENT: atraumatic, normocephalic Eye exam: PRESENT: PERRLA. ABSENT: conjunctiva pink, scleral icterus Ear exam: PRESENT: normal external ear exam Mouth exam: PRESENT: moist, tongue midline Respiratory exam: PRESENT: decreased breath sounds, rales. ABSENT: rhonchi, unlabored, wheezes Cardiovascular exam: PRESENT: RRR. ABSENT: systolic murmur Pulses: PRESENT: normal radial pulses GI/Abdominal exam: PRESENT: normal bowel sounds, soft. ABSENT: distended, guarding, tenderness Musculoskeletal exam: PRESENT: other - Obese extremities. ABSENT: ambulatory Neurological exam: PRESENT: altered, oriented to person, oriented to place Psychiatric exam: PRESENT: anxious, flat affect Skin exam: PRESENT: dry, warm Results Laboratory Results: 03/22/18 10:05 03/22/18 10:05 03/23/18 03/23/18 16:25 16:50 Carbonic Acid Cancelled 2.44 H HCO3/H2CO3 Ratio Cancelled 14:1 ABG pH Cancelled 7.26 L ABG pCO2 Cancelled 81.0 H* ABG pO2 Cancelled 220.6 H ABG HCO3 Cancelled 35.3 H ABG O2 Saturation Cancelled 99.3 H ABG Base Excess Cancelled 5.1 FiO2 Cancelled 4L Impressions: Acute Abdomen Series 03/19/18 00:00 IMPRESSION: Dilated small bowel and stomach. Differential diagnosis includes small bowel ileus and low-grade small bowel obstruction. Abdomen/Pelvis CT 03/20/18 00:00 IMPRESSION: No CT evidence for a small bowel obstruction. No other significant intra-abdominal or pelvic abnormalities were identified. Other findings as noted above Chest X-Ray 03/23/18 00:00 IMPRESSION: Very limited study demonstrates stable cardiomegaly and pulmonary vascular congestion. Assessment & Plan - Diagnosis (1) Acute respiratory failure with hypoxia and hypercarbia Is this a current diagnosis for this admission?: Yes Plan: Today the patient became a little confused, she had hypoxemia and a fever. She has been started on antibiotics for possible healthcare associated pneumonia. Also blood gas was checked and her CO2 level was high so we took her off of her C pap and started BiPAP. Oxygen level recovered well. (2) Pulmonary edema Qualifiers: Chronicity: acute Qualified Code(s): J81.0 - Acute pulmonary edema Is this a current diagnosis for this admission?: Yes Plan: Patient has been off of her Lasix. I think she has volume overload related to this and I started her on Lasix. She is received 2 IV doses of 40 mg and I started her on 60 mg IV twice daily. She states that she is breathing more comfortably this afternoon. (3) Fever Qualifiers: Fever type: unspecified Qualified Code(s): R50.9 - Fever, unspecified Is this a current diagnosis for this admission?: Yes Plan: She spiked a fever of 101 today given her difficulty with respirations and hypoxemia I started her on vancomycin and Zosyn for a possible healthcare associated pneumonia. Rest x-ray today does not show a lobar pneumonia. Will monitor clinically for now. De-escalate antibiotics if appropriate.. Also sputum and blood cultures along with urine culture have all been ordered. (4) Acute encephalopathy Is this a current diagnosis for this admission?: Yes Plan: Patient has an elevated CO2 on arterial blood gas. He is on BiPAP and tolerating this well. In the past she has had severe anxiety with BiPAP use and therefore it added Ativan to be used as needed agitation related to BiPAP because her son says this is been helpful in the past. (5) Obstructive sleep apnea Is this a current diagnosis for this admission?: Yes Plan: Patient was using her CPAP earlier today. (6) Pneumonia Is this a current diagnosis for this admission?: Yes Plan: I am treating the patient for healthcare associated pneumonia. She has been started on Vanco and Zosyn until we have more clinical information. He has been febrile with dyspnea and hypoxemia today. - Time Time Spent with patient: 35 or more minutes Medications reviewed and adjusted accordingly: Yes - Inpatient Certification Based on my medical assessment, after consideration of the patient's comorbidities, presenting symptoms, or acuity I expect that the services needed warrant INPATIENT care.: Yes I certify that my determination is in accordance with my understanding of Medicare's requirements for reasonable and necessary INPATIENT services [42 CFR 412.3e].: Yes Medical Necessity: Need Close Monitoring Due to Risk of Patient Decompensation, Need for IV Antibiotics, Risk of Complication if Not Cared For in Hospital
[2018-03-23 21:41] LABS: ANION GAP 8 (5-19); BLOOD UREA NITROGEN 30 mg/dL (7-20); CALCIUM 9.9 mg/dL (8.4-10.2); CARBON DIOXIDE 35 mmol/L (22-30); CHLORIDE 99 mmol/L (98-107); GLUCOSE 159 mg/dL (75-110); POTASSIUM 4.1 mmol/L (3.6-5.0)
[2018-03-23] MEDS ORDERED: VANCOMYCIN HCL 1,500 MG in DEXTROSE 5%-WATER 250 ML IV SCH (22:00)
[2018-03-23] MEDS: ATORVASTATIN CALCIUM 20 MG TABLET PO SCH (22:02)
[2018-03-23] MEDS: FUROSEMIDE INJ/PF 100 MG/10 ML SDV IV SCH (22:02)
[2018-03-23] MEDS: TRAZODONE HCL 50 MG TABLET PO SCH (22:04)
[2018-03-24] MEDS: PIPERACILLIN SODIUM/TAZOBACTAM 4.5 GM in NORMAL SALINE 100 ML IV SCH ×4 (01:35→17:57)
[2018-03-24] MEDS: VANCOMYCIN HCL INJ 500 MG VIAL PO SCH ×4 (01:37→17:56)
[2018-03-24] MEDS: METRONIDAZOLE 500 MG/NS RTU 100 ML IV SCH ×3 (02:44→17:57)
[2018-03-24 05:56] LABS: HEMATOCRIT 28.5 % (36.0-47.0); HEMOGLOBIN 9.4 g/dL (12.0-15.5); MEAN CORPUSCULAR HEMOGLOBIN 30.5 pg (27.0-33.4); MEAN CORPUSCULAR VOLUME 92 fl (80-97); PLATELET COUNT 188 10^3/uL (150-450); RED BLOOD COUNT 3.09 10^6/uL (3.72-5.28); WHITE BLOOD COUNT 7.6 10^3/uL (4.0-10.5)
[2018-03-24 06:09] LABS: ANION GAP 6 (5-19); BLOOD UREA NITROGEN 32 mg/dL (7-20); CALCIUM 9.8 mg/dL (8.4-10.2); CARBON DIOXIDE 36 mmol/L (22-30); CHLORIDE 101 mmol/L (98-107); GLUCOSE 139 mg/dL (75-110); POTASSIUM 3.9 mmol/L (3.6-5.0)
[2018-03-24] MEDS: LEVOTHYROXINE SODIUM 0.088 MG TABLET PO SCH (06:10)
[2018-03-24] MEDS: PREGABALIN 75 MG CAPSULE PO SCH ×3 (06:10→21:17)
[2018-03-24] MEDS: SODIUM CHLORIDE NASAL SPRAY 44 ML NASL SCH ×4 (08:19→21:18)
[2018-03-24] MEDS: FUROSEMIDE INJ/PF 100 MG/10 ML SDV IV SCH ×2 (10:04→21:18)
[2018-03-24] MEDS: CHOLECALCIFEROL (D3) 1,000 UNIT TABLET PO SCH (10:05)
[2018-03-24] MEDS: ASPIRIN 81 MG TABLET, CHEWABLE PO SCH (10:05)
[2018-03-24] MEDS: AMLODIPINE BESYLATE 10 MG TABLET PO SCH (10:05)
[2018-03-24] MEDS: FAMOTIDINE 20 MG TABLET PO SCH (10:05)
[2018-03-24] MEDS: DOCUSATE SODIUM 100 MG CAPSULE PO SCH (10:05)
[2018-03-24] MEDS: CARVEDILOL 12.5 MG TABLET PO SCH ×2 (10:06→21:18)
[2018-03-24] MEDS: FLUTICASONE NASAL SPRAY 50 MCG/SPRY 120 SPRAY/16 GM NASL SCH (10:06)
[2018-03-24] MEDS: LACTOBACILLUS ACIDOPHILUS 250 MG TAB PO SCH ×2 (10:06→17:58)
[2018-03-24] MEDS: CETIRIZINE HCL ORAL SOLN 5 MG/5 ML UDCUP PO SCH (10:38)
[2018-03-24] MEDS: OXYCODONE-ACETAMINOPHEN 5-325 MG TABLET PO PRN ×2 (10:38→20:00)
[2018-03-24] MEDS ORDERED: (PENDING PHARMACY ID) (Lactobacillus Acidophilus [Probiotic Acidophilus] 1 TAB) PO SCH (11:30)
[2018-03-24] MEDS ORDERED: LACTOBACILLUS ACIDOPHILUS 250 MG TAB PO ONE (12:15)
--- NOTE | 2018-03-24 13:43 | PDOC PROGRESS REPORT ---
Subjective Progress Note for:: 03/24/18 Subjective:: She is feeling a lot better today. Breathing better, more awake, no new pain, no cough or sputum or fever. "I feel human again". She and I discussed her goal of losing some weight and being able to walk a little so that maybe her son can take her to [place], [place]. No diarrhea today. No abdominal pain. No redness or pain in skin folds. Reason For Visit: SEPSIS/TIFFANIE/DEHYDRATION Physical Exam Vital Signs: Temp Pulse Resp BP Pulse Ox 98.4 F 67 20 144/59 H 95 03/24/18 07:20 03/24/18 08:00 03/24/18 08:00 03/24/18 07:20 03/24/18 08:00 Intake & Output 03/23/18 03/24/18 03/25/18 06:59 06:59 06:59 Intake Total 1888 1480 Output Total 1275 Balance 1888 205 Weight 145 kg 145.5 kg General appearance: PRESENT: no acute distress, cooperative, disheveled, morbidly obese Head exam: PRESENT: atraumatic Eye exam: PRESENT: EOMI Ear exam: PRESENT: normal external ear exam Mouth exam: PRESENT: moist, tongue midline Respiratory exam: PRESENT: decreased breath sounds, rales, unlabored. ABSENT: rhonchi, wheezes Cardiovascular exam: PRESENT: RRR. ABSENT: systolic murmur Pulses: PRESENT: normal radial pulses GI/Abdominal exam: PRESENT: normal bowel sounds, soft. ABSENT: distended, firm , guarding, tenderness Gentrourinary exam: PRESENT: indwelling catheter - dark urine Extremities exam: ABSENT: pedal edema Musculoskeletal exam: ABSENT: ambulatory Neurological exam: PRESENT: alert, awake, oriented to person, oriented to place , oriented to situation, CN II-XII grossly intact Psychiatric exam: PRESENT: appropriate affect Skin exam: PRESENT: warm, other Results Laboratory Results: 03/24/18 04:57 03/24/18 04:57 03/23/18 03/23/18 03/23/18 16:25 16:50 21:06 WBC RBC Hgb Hct MCV MCH MCHC RDW Plt Count Carbonic Acid Cancelled 2.44 H HCO3/H2CO3 Ratio Cancelled 14:1 ABG pH Cancelled 7.26 L ABG pCO2 Cancelled 81.0 H* ABG pO2 Cancelled 220.6 H ABG HCO3 Cancelled 35.3 H ABG O2 Saturation Cancelled 99.3 H ABG Base Excess Cancelled 5.1 FiO2 Cancelled 4L Sodium 142.0 Potassium 4.1 Chloride 99 Carbon Dioxide 35 H Anion Gap 8 BUN 30 H Creatinine 1.56 H Est GFR ( Amer) 40 L Est GFR (Non-Af Amer) 33 L Glucose 159 H Calcium 9.9 Magnesium 03/24/18 03/24/18 03/24/18 04:57 04:57 12:25 WBC 7.6 RBC 3.09 L Hgb 9.4 L Hct 28.5 L MCV 92 MCH 30.5 MCHC 33.0 RDW 13.0 Plt Count 188 Carbonic Acid Cancelled HCO3/H2CO3 Ratio Cancelled ABG pH Cancelled ABG pCO2 Cancelled ABG pO2 Cancelled ABG HCO3 Cancelled ABG O2 Saturation Cancelled ABG Base Excess Cancelled FiO2 Cancelled Sodium 143.0 Potassium 3.9 Chloride 101 Carbon Dioxide 36 H Anion Gap 6 BUN 32 H Creatinine 1.52 H Est GFR ( Amer) 41 L Est GFR (Non-Af Amer) 34 L Glucose 139 H Calcium 9.8 Magnesium 1.8 Impressions: Acute Abdomen Series 03/19/18 00:00 IMPRESSION: Dilated small bowel and stomach. Differential diagnosis includes small bowel ileus and low-grade small bowel obstruction. Abdomen/Pelvis CT 03/20/18 00:00 IMPRESSION: No CT evidence for a small bowel obstruction. No other significant intra-abdominal or pelvic abnormalities were identified. Other findings as noted above Chest X-Ray 03/23/18 00:00 IMPRESSION: Very limited study demonstrates stable cardiomegaly and pulmonary vascular congestion. Assessment & Plan - Diagnosis (1) Acute respiratory failure with hypoxia and hypercarbia Is this a current diagnosis for this admission?: Yes Plan: multifactorial, with fluid overload off of lasix due to TIFFANIE and with hypercarbia and hypoxmia yesterday. Now back to baseline after lasix and bipap. WIll cont lasix IV and consider change to po tomorrow. (2) Pulmonary edema Qualifiers: Chronicity: acute Qualified Code(s): J81.0 - Acute pulmonary edema Is this a current diagnosis for this admission?: Yes Plan: Improving iwht lasix 60 mg IV q 12 hrs. Consider switch to 80 po BID tomorrow. (3) Fever Qualifiers: Fever type: unspecified Qualified Code(s): R50.9 - Fever, unspecified Is this a current diagnosis for this admission?: Yes Plan: none today, started on vanc and zosyn yesterday for constellation of symptoms and fever. Stopped IV vanc and will cont zosyn which would also cover a UTI. (4) Acute encephalopathy Is this a current diagnosis for this admission?: Yes Plan: resolved with diuresis and bipap, monitor closely, treat infections as indicated , repeat ABG pending. (5) Obstructive sleep apnea Is this a current diagnosis for this admission?: Yes Plan: con cpap, less mouthbreathing today with flonase (6) Pneumonia Is this a current diagnosis for this admission?: Yes Plan: possible, not yet clear, stopped IV vanc and will cont zosyn and reassess tomorrow (7) Urinary tract infection Qualifiers: Urinary tract infection type: site unspecified Hematuria presence: without hematuria Qualified Code(s): N39.0 - Urinary tract infection, site not specified Is this a current diagnosis for this admission?: Yes Plan: pt completed treatment for Ecoli UTI a few days ago, due to fever and acute metabolic encepahlopathy yesterday she was recultured. UA with nitrates and LE , parvin lcont zosyn and await culture data. (8) Acute renal failure Qualifiers: Acute renal failure type: unspecified Qualified Code(s): N17.9 - Acute kidney failure, unspecified Is this a current diagnosis for this admission?: Yes Plan: this is acute on chronic, improved, cont current care and monitor renal function - Time Time Spent with patient: 25-34 minutes Medications reviewed and adjusted accordingly: Yes - Inpatient Certification Based on my medical assessment, after consideration of the patient's comorbidities, presenting symptoms, or acuity I expect that the services needed warrant INPATIENT care.: Yes I certify that my determination is in accordance with my understanding of Medicare's requirements for reasonable and necessary INPATIENT services [42 CFR 412.3e].: Yes Medical Necessity: Significant Comorbidiites Make Outpatient Treatment Too Risky , Need Close Monitoring Due to Risk of Patient Decompensation, Risk of Complication if Not Cared For in Hospital
[2018-03-24 13:48] LABS: ARTERIAL BLOOD BASE EXCESS 7.2 mmol/L; ARTERIAL BLOOD H2CO3 2.39 mmol/L (1.05-1.35); ARTERIAL BLOOD HCO3 35.9 mmol/L (20-26); ARTERIAL BLOOD O2 SATURATION 92.4 % (94-98); ARTERIAL BLOOD PH 7.27 (7.35-7.45); ARTERIAL BLOOD PO2 74.9 mmHg (80-100); ARTERIAL BLOOD TOTAL CO2 38.4 mmol/L (21-25)
[2018-03-24 13:49] LABS: ARTERIAL BLOOD FIO2 3L
[2018-03-24 13:52] LABS: ARTERIAL BLOOD PCO2 79.5 mmHg (35-45)
[2018-03-24] MEDS: FERROUS SULFATE 325 MG TABLET PO SCH (17:58)
[2018-03-24] MEDS ORDERED: LACTOBACILLUS ACIDOPHILUS 250 MG TAB PO SCH (18:00)
[2018-03-24] MEDS: HEPARIN SOD (PORCINE) 5,000 UNIT/ML 1 ML SYRINGE SUBCUT SCH (21:17)
[2018-03-24] MEDS: ATORVASTATIN CALCIUM 20 MG TABLET PO SCH (21:18)
[2018-03-24] MEDS: TRAZODONE HCL 50 MG TABLET PO SCH (21:18)
[2018-03-25] MEDS: VANCOMYCIN HCL INJ 500 MG VIAL PO SCH ×4 (00:42→18:19)
[2018-03-25] MEDS: PIPERACILLIN SODIUM/TAZOBACTAM 4.5 GM in NORMAL SALINE 100 ML IV SCH ×4 (00:43→18:19)
[2018-03-25] MEDS: METRONIDAZOLE 500 MG/NS RTU 100 ML IV SCH ×3 (02:39→18:18)
[2018-03-25] MEDS: PREGABALIN 75 MG CAPSULE PO SCH ×3 (05:08→21:42)
[2018-03-25] MEDS: LEVOTHYROXINE SODIUM 0.088 MG TABLET PO SCH (05:08)
[2018-03-25] MEDS: HEPARIN SOD (PORCINE) 5,000 UNIT/ML 1 ML SYRINGE SUBCUT SCH ×3 (05:08→21:41)
[2018-03-25] MEDS: OXYCODONE-ACETAMINOPHEN 5-325 MG TABLET PO PRN (05:08)
[2018-03-25] MEDS: SODIUM CHLORIDE NASAL SPRAY 44 ML NASL SCH ×4 (09:43→21:43)
[2018-03-25] MEDS: LACTOBACILLUS ACIDOPHILUS 250 MG TAB PO SCH ×2 (09:45→18:18)
[2018-03-25] MEDS: FERROUS SULFATE 325 MG TABLET PO SCH ×2 (09:46→18:18)
[2018-03-25] MEDS: DOCUSATE SODIUM 100 MG CAPSULE PO SCH (09:46)
[2018-03-25] MEDS: CHOLECALCIFEROL (D3) 1,000 UNIT TABLET PO SCH (09:46)
[2018-03-25] MEDS: CARVEDILOL 12.5 MG TABLET PO SCH ×2 (09:47→21:43)
[2018-03-25] MEDS: ASPIRIN 81 MG TABLET, CHEWABLE PO SCH (09:47)
[2018-03-25] MEDS: AMLODIPINE BESYLATE 10 MG TABLET PO SCH (09:47)
[2018-03-25] MEDS: FAMOTIDINE 20 MG TABLET PO SCH (09:47)
[2018-03-25] MEDS: FUROSEMIDE INJ/PF 100 MG/10 ML SDV IV SCH (09:48)
[2018-03-25] MEDS: CETIRIZINE HCL ORAL SOLN 5 MG/5 ML UDCUP PO SCH (09:56)
[2018-03-25] MEDS: FLUTICASONE NASAL SPRAY 50 MCG/SPRY 120 SPRAY/16 GM NASL SCH (09:57)
[2018-03-25 13:26] LABS: ARTERIAL BLOOD BASE EXCESS 6.8 mmol/L; ARTERIAL BLOOD H2CO3 2.15 mmol/L (1.05-1.35); ARTERIAL BLOOD HCO3 34.8 mmol/L (20-26); ARTERIAL BLOOD O2 SATURATION 83.5 % (94-98); ARTERIAL BLOOD PH 7.31 (7.35-7.45); ARTERIAL BLOOD PO2 53.9 mmHg (80-100)
[2018-03-25 13:27] LABS: ARTERIAL BLOOD FIO2 30%; ARTERIAL BLOOD PCO2 71.4 mmHg (35-45)
--- NOTE | 2018-03-25 16:36 | PDOC PROGRESS REPORT ---
Subjective Progress Note for:: 03/25/18 Subjective:: Patient feeling overall better. She is more clear headed. Her breathing is improved. She feels excessively tired however. She has been able to eat a little bit. No more diarrhea. No nausea or vomiting. She would like to be more awake so that she could start to get out of bed some. Reason For Visit: SEPSIS/TIFFANIE/DEHYDRATION Physical Exam Vital Signs: Temp Pulse Resp BP Pulse Ox 99.5 F 70 13 129/58 H 94 03/25/18 11:23 03/25/18 11:23 03/25/18 16:00 03/25/18 11:23 03/25/18 16:00 Intake & Output 03/24/18 03/25/18 03/26/18 06:59 06:59 06:59 Intake Total 1480 1619 125 Output Total 1275 2650 800 Balance 005 -0488 -038 Weight 145.5 kg 144.8 kg General appearance: PRESENT: no acute distress, morbidly obese Head exam: PRESENT: atraumatic, normocephalic Eye exam: PRESENT: EOMI. ABSENT: conjunctival injection, scleral icterus Ear exam: PRESENT: normal external ear exam Mouth exam: PRESENT: moist Respiratory exam: PRESENT: decreased breath sounds, unlabored. ABSENT: rales, rhonchi, wheezes Cardiovascular exam: PRESENT: RRR. ABSENT: systolic murmur Pulses: PRESENT: normal radial pulses GI/Abdominal exam: PRESENT: normal bowel sounds, soft. ABSENT: distended, firm , guarding, tenderness Neurological exam: PRESENT: awake, oriented to person, oriented to place, oriented to situation, CN II-XII grossly intact. ABSENT: aphasic Psychiatric exam: PRESENT: appropriate affect. ABSENT: anxious Skin exam: PRESENT: dry, warm Results Laboratory Results: 03/24/18 04:57 03/24/18 04:57 03/25/18 12:40 Carbonic Acid 2.15 H HCO3/H2CO3 Ratio 16:1 ABG pH 7.31 L ABG pCO2 71.4 H* ABG pO2 53.9 L ABG HCO3 34.8 H ABG O2 Saturation 83.5 L ABG Base Excess 6.8 FiO2 30% 03/23/18 15:45 Catheterized Urine Urine Culture - Final NO GROWTH 2 DAYS Impressions: Acute Abdomen Series 03/19/18 00:00 IMPRESSION: Dilated small bowel and stomach. Differential diagnosis includes small bowel ileus and low-grade small bowel obstruction. Abdomen/Pelvis CT 03/20/18 00:00 IMPRESSION: No CT evidence for a small bowel obstruction. No other significant intra-abdominal or pelvic abnormalities were identified. Other findings as noted above Chest X-Ray 03/23/18 00:00 IMPRESSION: Very limited study demonstrates stable cardiomegaly and pulmonary vascular congestion. Assessment & Plan - Diagnosis (1) Acute respiratory failure with hypoxia and hypercarbia Is this a current diagnosis for this admission?: Yes Plan: Patient is improving. I think her acute failure was secondary to volume overload, Lasix had been on hold due to infections. She has now been receiving IV Lasix for several days and she is improved. She did have a resultant hypercarbia which was also related to her underlying medical problems including morbid obesity and sleep apnea. Blood gases improving. I have consulted Dr. [place] to assist with BiPAP settings. (2) Pulmonary edema Qualifiers: Chronicity: acute Qualified Code(s): J81.0 - Acute pulmonary edema Is this a current diagnosis for this admission?: Yes (3) Fever Qualifiers: Fever type: unspecified Qualified Code(s): R50.9 - Fever, unspecified Is this a current diagnosis for this admission?: Yes Plan: This is resolved. Several days ago the patient had acute hypoxemic hypercarbic respiratory failure and a fever. She was started on vancomycin and Zosyn, IV Vanco stopped yesterday. I am going to discontinue Zosyn as I do not think this patient has a healthcare associated pneumonia. Blood and urine cultures are pending. (4) Acute encephalopathy Is this a current diagnosis for this admission?: Yes Plan: Contrary to hypercarbia, now much improved. Continue with BiPAP for now. (5) C. difficile diarrhea Is this a current diagnosis for this admission?: Yes Plan: Patient has had significant problems with C. difficile. 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 She had diarrhea and an ileus on admission and C. difficile PCR was checked. It was positive. Secondary to the diarrhea and partial small bowel obstruction she was placed on treatment for C. difficile though we are not entirely sure that she is infected with C. difficile. I have stopped the IV Flagyl and we will continue with a course of oral vancomycin. Please see ID note for further details. (6) Obstructive sleep apnea Is this a current diagnosis for this admission?: Yes Plan: A CPAP at home. She may need a new sleep study to have settings adjusted. (7) Urinary tract infection Qualifiers: Urinary tract infection type: site unspecified Hematuria presence: without hematuria Qualified Code(s): N39.0 - Urinary tract infection, site not specified Is this a current diagnosis for this admission?: Yes (8) Acute renal failure Qualifiers: Acute renal failure type: unspecified Qualified Code(s): N17.9 - Acute kidney failure, unspecified Is this a current diagnosis for this admission?: Yes Plan: Was admitted with an acute urinary tract infection, 2 different E. coli. Repeat urine culture is negative to date. Renal function is improving. She is back on her regular diuretics. (9) Morbid obesity Is this a current diagnosis for this admission?: Yes Plan: This is an underlying cause of multiple of her medical problems. She states that recently she has lost 30 pounds with the goal of being able to walk around with a cane. For now she is mostly bedbound. Her son has talked with her about the possibility of taking a trip to [place] which is where she is from, if she is able to walk around with a cane. - Time Time Spent with patient: 25-34 minutes Medications reviewed and adjusted accordingly: Yes - Inpatient Certification Based on my medical assessment, after consideration of the patient's comorbidities, presenting symptoms, or acuity I expect that the services needed warrant INPATIENT care.: Yes I certify that my determination is in accordance with my understanding of Medicare's requirements for reasonable and necessary INPATIENT services [42 CFR 412.3e].: Yes Medical Necessity: Need Close Monitoring Due to Risk of Patient Decompensation, Risk of Complication if Not Cared For in Hospital
[2018-03-25] MEDS: FUROSEMIDE 80 MG TABLET PO SCH (18:18)
[2018-03-25] MEDS: INSULIN LISPRO 100 UNIT/ML 3 ML VIAL SUBCUT PRN ×2 (18:24→21:41)
--- NOTE | 2018-03-25 19:37 | PDOC CONSULTATION ---
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 snoringor restless sleep nocturia3-4 x night ,unrestful sleep,excessive daytime somulbulence Past Medical History Cardiac Medical History: Reports: Atrial Fibrillation - Paroxysmal, Congestive Heart Failure, Coronary Artery Disease, Myocardial Infarction, Hyperlipidema, Hypertension Denies: DVT, Pulmonary Embolism Pulmonary Medical History: Reports: Chronic Obstructive Pulmonary Disease (COPD) , Pneumonia, Sleep Apnea Denies: Asthma, Bronchitis Neurological Medical History: Denies: Seizures Endocrine Medical History: Reports: Diabetes Mellitus Type 1, Diabetes Mellitus Type 2, Hypothyroidism Denies: Hyperthyroidism Renal/ Medical History: Reports: End Stage Renal Disease Malignancy Medical History: Reports: Cervical Cancer GI Medical History: Denies: Cirrhosis, Hepatitis Musculoskeltal Medical History: Reports: Arthritis, Gout Skin Medical History: Denies: Eczema, Psoriasis Psychiatric Medical History: Reports: Depression Hematology: Reports: Anemia Infectious Medical History: Reports: Clostridium Difficile - 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 difficile Denies: Hysterectomy Social History Information Source: Patient, [facility] Records Lives with: [facility] Smoking Status: Never Smoker Passive smoke exposure as: Both Frequency of Alcohol Use: None Hx Recreational Drug Use: No Drugs: None Hx Prescription Drug Abuse: No Do you have pets?: No Have you had any respiratory illnesses as a child?: No Have you been exposed to any sick contacts recently?: No Have you had any recent respiratory illnesses?: No Have you travelled outside of [place] in the past 12 months?: No - Advance Directive Resuscitation Status: Full Code Family History Family History: Hypertension Parental Family History Reviewed: Yes Children Family History Reviewed: Yes Sibling(s) Family History Reviewed.: Yes Medication/Allergy Home Medications: Amlodipine Besylate [Norvasc 10 mg Tablet] 10 mg PO DAILY #30 tablet 12/15/17 Atorvastatin Calcium [Lipitor 20 mg Tablet] 20 mg PO QHS #30 tablet 12/15/17 Carvedilol [Coreg 12.5 mg Tablet] 12.5 mg PO Q12 #60 tablet 12/15/17 Cetirizine HCl [Zyrtec 10 mg Tablet] 10 mg PO DAILY #30 tablet 12/15/17 Fenofibrate Nanocrystallized [Tricor 145 mg Tablet] 145 mg PO QHS #30 tablet 07/24 Ferrous Sulfate [Feosol 325 mg Tablet] 325 mg PO BID #60 tablet 12/15/17 Guaifenesin [Mucinex Sr 600 mg Tablet.sa] 1,200 mg PO Q12 #16 tablet.sa Levothyroxine Sodium [Synthroid 0.088 mg Tablet] 0.088 mg PO Q6AM #30 tablet 07/24 Psyllium Seed [Metamucil-Sf Powder 5.85 gm Packet] 1 packet PO Q8 #30 packet 07/24 Aspirin [Aspirin EC] 81 mg PO DAILY 03/15/18 Cholecalciferol (Vitamin D3) [Vitamin D3 1000 Unit Tablet] 5,000 unit PO DAILY 03/15/18 Clobetasol Propionate [Cormax Solution] 1 applic TP QHS MDD TO FLARE AREAS SCALP /EAR LOBES 03/15/18 Furosemide [Lasix 80 mg Tablet] 80 mg PO BID 03/15/18 Glimepiride [Amaryl 4 mg Tablet] 4 mg PO Q12 03/15/18 Insulin Glargine,Hum.rec.anlog [Lantus Solostar] 35 unit SQ Q12 03/15/18 Insulin Lispro [Humalog Insulin 100 Unit/1 ml 3 ml Vial] 0 unit SUBCUT .SLD SCALE 03/15/18 Lactobacillus Acidophilus [Probiotic Acidophilus] 1 tab PO BID 03/15/18 Metolazone [Zaroxolyn 2.5 Mg Tablet] 2.5 mg PO MOWEFR@0800 MDD 30-60MINS BEFORE LASIX 03/15/18 Pimecrolimus [Elidel] 1 applic TP BID MDD SCALY AREAS OF FACE AND EARS 03/15/18 Pregabalin [Lyrica 75 mg Capsule] 75 mg PO Q8 03/15/18 Trazodone HCl [Desyrel 50 mg Tablet] 50 mg PO QHS 03/15/18 Allergies/Adverse Reactions: No Known Allergies Allergy (Verified 03/15/18 15:04) Review of Systems Constitutional: ABSENT: headache(s), night sweats Eyes: ABSENT: visual disturbances Ears: ABSENT: hearing changes Nose, Mouth, and Throat: ABSENT: mouth pain, sore throat Cardiovascular: ABSENT: edema, palpitations Respiratory: PRESENT: cough. ABSENT: hemoptysis Gastrointestinal: ABSENT: abdominal pain, bloating, coffee ground emesis, dysphagia, heartburn, hematemesis, hematochezia, melena Genitourinary: PRESENT: nocturia. ABSENT: dysuria, hematuria Integumentary: ABSENT: pruritus, rash Neurological: ABSENT: abnormal gait, abnormal movements, abnormal speech, confusion, lack of coordination, memory loss, numbness Psychiatric: ABSENT: hallucinations, homidical ideation, suicidal ideation Endocrine: ABSENT: cold intolerance, heat intolerance, polydipsia, polyuria Hematologic/Lymphatic: ABSENT: easy bruising Physical Exam Vital Signs: Temp Pulse Resp BP Pulse Ox 99.5 F 69 13 129/58 H 94 03/25/18 11:23 03/25/18 14:00 03/25/18 16:00 03/25/18 11:23 03/25/18 16:00 Intake & Output 03/24/18 03/25/18 03/26/18 06:59 06:59 06:59 Intake Total 1480 1619 633 Output Total 1275 2650 900 Balance 000 -5205 -743 Weight 145.5 kg 144.8 kg General appearance: PRESENT: no acute distress, cooperative, disheveled, morbidly obese Head exam: PRESENT: atraumatic, normocephalic Eye exam: PRESENT: conjunctiva pale, EOMI. ABSENT: nystagmus, periorbital swelling, scleral icterus Mouth exam: PRESENT: dry mucosa, neck supple, tongue midline Neck exam: ABSENT: carotid bruit, JVD, lymphadenopathy, thyromegaly, tracheal deviation, tracheostomy Respiratory exam: PRESENT: decreased breath sounds, prolonged expiratory phas, rales, rhonchi, unlabored. ABSENT: retraction, stridor, tachypnea Cardiovascular exam: PRESENT: RRR, +S1, +S2 Pulses: PRESENT: normal radial pulses GI/Abdominal exam: PRESENT: diminished bowel sounds, soft Extremities exam: ABSENT: calf tenderness, clubbing, full ROM, joint swelling Musculoskeletal exam: ABSENT: deformity, dislocation, full ROM Neurological exam: PRESENT: awake Skin exam: PRESENT: dry, warm Results Laboratory Results: 03/24/18 04:57 03/24/18 04:57 03/25/18 12:40 Carbonic Acid 2.15 H HCO3/H2CO3 Ratio 16:1 ABG pH 7.31 L ABG pCO2 71.4 H* ABG pO2 53.9 L ABG HCO3 34.8 H ABG O2 Saturation 83.5 L ABG Base Excess 6.8 FiO2 30% 03/23/18 15:45 Catheterized Urine Urine Culture - Final NO GROWTH 2 DAYS Impressions: Acute Abdomen Series 03/19/18 00:00 IMPRESSION: Dilated small bowel and stomach. Differential diagnosis includes small bowel ileus and low-grade small bowel obstruction. Abdomen/Pelvis CT 03/20/18 00:00 IMPRESSION: No CT evidence for a small bowel obstruction. No other significant intra-abdominal or pelvic abnormalities were identified. Other findings as noted above Chest X-Ray 03/23/18 00:00 IMPRESSION: Very limited study demonstrates stable cardiomegaly and pulmonary vascular congestion. Assessment & Plan - Diagnosis (1) Acute respiratory failure with hypoxia and hypercarbia Is this a current diagnosis for this admission?: Yes Plan: bipap;check current ABG adjust as needed (2) C. difficile diarrhea Is this a current diagnosis for this admission?: Yes (3) Fever Qualifiers: Fever type: unspecified Qualified Code(s): R50.9 - Fever, unspecified Is this a current diagnosis for this admission?: Yes (4) Morbid obesity Is this a current diagnosis for this admission?: Yes Plan: obesity hypoventilation (5) Chronic kidney disease Qualifiers: Chronic kidney disease stage: unspecified stage Qualified Code(s): N18.9 - Chronic kidney disease, unspecified
[2018-03-25] MEDS: ATORVASTATIN CALCIUM 20 MG TABLET PO SCH (21:42)
[2018-03-25] MEDS: TRAZODONE HCL 50 MG TABLET PO SCH (21:42)
[2018-03-25] MEDS: INSULIN GLARGINE,HUM.REC.ANLOG 300 UNIT/3 ML INSULN.PEN SUBCUT SCH (21:43)
[2018-03-26] MEDS: VANCOMYCIN HCL INJ 500 MG VIAL PO SCH ×5 (00:38→23:50)
[2018-03-26] MEDS: HEPARIN SOD (PORCINE) 5,000 UNIT/ML 1 ML SYRINGE SUBCUT SCH ×3 (05:37→23:00)
[2018-03-26] MEDS: LEVOTHYROXINE SODIUM 0.088 MG TABLET PO SCH (05:37)
[2018-03-26] MEDS: PREGABALIN 75 MG CAPSULE PO SCH ×3 (05:37→23:00)
[2018-03-26 06:38] LABS: ARTERIAL BLOOD HCO3 36.3 mmol/L (20-26); ARTERIAL BLOOD O2 SATURATION 59.9 % (94-98); ARTERIAL BLOOD PCO2 66.4 mmHg (35-45); ARTERIAL BLOOD PH 7.36 (7.35-7.45); ARTERIAL BLOOD TOTAL CO2 38.4 mmol/L (21-25)
[2018-03-26 06:50] LABS: ARTERIAL BLOOD FIO2 36%; ARTERIAL BLOOD PO2 33.7 mmHg (80-100)
[2018-03-26 07:04] LABS: ANION GAP 11 (5-19); BLOOD UREA NITROGEN 32 mg/dL (7-20); CARBON DIOXIDE 35 mmol/L (22-30); CHLORIDE 101 mmol/L (98-107); GLUCOSE 160 mg/dL (75-110); SODIUM 146.8 mmol/L (137-145)
[2018-03-26] MEDS ORDERED: METOLAZONE 2.5 MG TABLET PO SCH (08:00)
[2018-03-26] MEDS: DOCUSATE SODIUM 100 MG CAPSULE PO SCH (09:53)
[2018-03-26] MEDS: CARVEDILOL 12.5 MG TABLET PO SCH ×2 (09:53→23:00)
[2018-03-26] MEDS: CHOLECALCIFEROL (D3) 1,000 UNIT TABLET PO SCH (09:54)
[2018-03-26] MEDS: FERROUS SULFATE 325 MG TABLET PO SCH ×2 (09:54→17:27)
[2018-03-26] MEDS: LACTOBACILLUS ACIDOPHILUS 250 MG TAB PO SCH ×2 (09:54→17:27)
[2018-03-26] MEDS: FUROSEMIDE 80 MG TABLET PO SCH ×2 (09:54→17:27)
[2018-03-26] MEDS: FAMOTIDINE 20 MG TABLET PO SCH (09:54)
[2018-03-26] MEDS: ASPIRIN 81 MG TABLET, CHEWABLE PO SCH (09:54)
[2018-03-26] MEDS: INSULIN GLARGINE,HUM.REC.ANLOG 300 UNIT/3 ML INSULN.PEN SUBCUT SCH ×2 (09:54→23:00)
[2018-03-26] MEDS: AMLODIPINE BESYLATE 10 MG TABLET PO SCH (09:54)
[2018-03-26] MEDS: SODIUM CHLORIDE NASAL SPRAY 44 ML NASL SCH ×4 (09:55→23:00)
[2018-03-26] MEDS: FLUTICASONE NASAL SPRAY 50 MCG/SPRY 120 SPRAY/16 GM NASL SCH (09:56)
[2018-03-26] MEDS: CETIRIZINE HCL ORAL SOLN 5 MG/5 ML UDCUP PO SCH (10:04)
[2018-03-26] MEDS: INSULIN LISPRO 100 UNIT/ML 3 ML VIAL SUBCUT PRN (12:53)
--- NOTE | 2018-03-26 13:09 | PROGRESS NOTE E ---
Progress Note NAME: LORETO JOSHI : 1950 AGE: 67Y DATE: 03/26/2018 ROOM: 305 SUBJECTIVE: The patient is lying in bed. The patient states that she has intermittent episodes of being quite shaky at times. I did discuss CO2 necrosis with the patient. The patient denies any nausea or vomiting. The patient describes herself as completely exhausted. The patient for the most part has been on the BiPAP; is currently off taking a break. The patient has been afebrile. Her blood pressures have been in a good range and the patient does not voice any specific concerns at this time. BRIEF HISTORY: The patient is a 67-year-old female that is well known to the hospitalist service due to morbid obesity and hypoventilation syndrome and CO2 necrosis. The patient presented to the emergency department with fever and chills. 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 [place] that this was caused by chronic and reoccurring UTIs and excessive treatment of this. The patient apparently also had some diarrhea. Stool has been tested and PCR again was positive for C. diff toxin. The case was discussed with Infectious Disease and therefore the patient is on current treatment of oral vancomycin which will be completed tomorrow. The patient has also been started on probiotic therapy. REVIEW OF SYSTEMS: Rest of review of systems negative. MEDICATIONS: Medications have been reviewed. OBJECTIVE: GENERAL: The patient is a 67-year-old female who is awake, alert. She is oriented to person, place, time, and situation. She is verbal, conversational, just a little delayed. Does not appear to be distressed. VITAL SIGNS: Temperature is 97.8, pulse 72, respirations 17, blood pressure is 141/58, oxygen saturation is 100% on 30% FiO2 on BiPAP. SKIN: Warm and dry. No rash. Not diaphoretic. HEENT: Pupils equal, round, and reactive to light and accommodation. Conjunctiva is pink. There is no evidence of JVP. CARDIOVASCULAR SYSTEM: Heart is regular. No rub. CHEST: Diminished, symmetrical, unlabored. ABDOMEN: Obese, soft, nontender. EXTREMITIES: No clubbing, cyanosis, edema. PSYCHIATRIC: Appropriate affect. DIAGNOSTICS: Lab values are as follows: Hematology obtained on 03/24/2018: WBCs are 7.6, hemoglobin is 9.4, hematocrit is 28.5, platelet count is 188,000. Chemistry obtained on 03/26/2018: Sodium is 146, potassium 4.0, chloride is 101, carbon dioxide 35, BUN 32, creatinine is 1.99, glucose 160, calcium is 10.1. IMPRESSION AND PLAN: 1. ACUTE ON CHRONIC HYPOXEMIA AND HYPERCAPNIC RESPIRATORY FAILURE. This is multifocal due to the patient's underlying hypoventilation syndrome but as well as the patient appeared to have pulmonary edema from over volume resuscitation. The patient has been diuresed and had improvement with this. However, the patient still has hypercapnia on blood gas and the patient does get jerky with this. Will discuss the latest findings with Pulmonology. The patient most likely is going to need a BiPAP on an outpatient basis. Will discuss with case management as this will need to go through the patient's [facility]. 2. CLOSTRIDIUM DIFFICILE DIARRHEA. The patient is currently being treated with oral medication. She will complete her course tomorrow. The facility will take her back once she has completed her course. Will continue oral probiotic therapy as well and follow. 3. ACUTE ENCEPHALOPATHY. MOSTLY LIKELY THIS IS DUE TO HER HYPERCAPNIA MUCH IMPROVED. 4. OBSTRUCTIVE SLEEP APNEA. She wears a CPAP at home at the [facility], however the patient will benefit most likely from actual BiPAP given this persistent hypercapnia. 5. REOCCURRENT UTIS. Repeat urine culture has been negative. 6. ACUTE RENAL FAILURE. It appears the patient's baseline creatinine is anywhere between the 1.5 to 1.2 range. The patient's creatinine has waxed and waned according to volume and diuresis and so forth. Appears to have these in urine output. 7. CHRONIC KIDNEY DISEAE STAGE III. It appears the patient's baseline creatinine is in the 1.5 to 1.2 range. 8. MORBID OBESITY WITH A BMI OF 57. The patient has made attempts on her own for weight reduction. 9. DIABETES MELLITUS TYPE 2. Will continue sliding scale coverage. DISPOSITION: The patient is a FULL CODE. Pending patient's symptomatology and diagnostic findings, will re-evaluate in the a.m. Will also consult Physical Therapy Time spent on this followup including assessment, plan, physical examination, patient education, review of records is 35 minutes. DICTATING PHYSICIAN: DANISHA MACIAS NP [id number] PHY#: [id number] ID: [id number] JOB#: [id number] ACCT: [id number] cc: >
--- NOTE | 2018-03-26 16:06 | PDOC PROGRESS REPORT ---
Subjective Progress Note for:: 03/26/18 Subjective:: Feeling about the same may be a little better Reason For Visit: SEPSIS/TIFFANIE/DEHYDRATION Physical Exam Vital Signs: Temp Pulse Resp BP Pulse Ox 98.8 F 75 14 161/62 H 100 03/26/18 10:59 03/26/18 14:00 03/26/18 14:14 03/26/18 10:59 03/26/18 14:14 Intake & Output 03/25/18 03/26/18 03/27/18 06:59 06:59 06:59 Intake Total 1619 900 325 Output Total 2650 2600 900 Balance -7662 -1700 -575 Weight 144.8 kg 147.6 kg General appearance: PRESENT: no acute distress, cooperative, disheveled, morbidly obese Head exam: PRESENT: atraumatic, normocephalic Eye exam: PRESENT: conjunctiva pale, EOMI. ABSENT: nystagmus, periorbital swelling, scleral icterus Mouth exam: PRESENT: moist, neck supple, tongue midline Neck exam: ABSENT: carotid bruit, JVD, lymphadenopathy, thyromegaly, tracheal deviation, tracheostomy Respiratory exam: PRESENT: decreased breath sounds, prolonged expiratory phas, rhonchi, symmetrical, unlabored. ABSENT: rales, retraction, stridor, tachypnea Cardiovascular exam: PRESENT: RRR, +S1, +S2 Pulses: PRESENT: normal radial pulses GI/Abdominal exam: PRESENT: hypoactive bowel sounds, soft Extremities exam: ABSENT: calf tenderness, clubbing, joint swelling Musculoskeletal exam: ABSENT: ambulatory, deformity, dislocation Neurological exam: PRESENT: awake Skin exam: PRESENT: dry, warm Results Laboratory Results: 03/24/18 04:57 03/26/18 05:23 03/26/18 03/26/18 05:23 06:24 Carbonic Acid 2.00 H HCO3/H2CO3 Ratio 18:1 ABG pH 7.36 ABG pCO2 66.4 H ABG pO2 33.7 L* ABG HCO3 36.3 H ABG O2 Saturation 59.9 L ABG Base Excess 9.0 FiO2 36% Sodium 146.8 H Potassium 4.0 Chloride 101 Carbon Dioxide 35 H Anion Gap 11 BUN 32 H Creatinine 1.99 H Est GFR ( Amer) 30 L Est GFR (Non-Af Amer) 25 L Glucose 160 H Calcium 10.0 Impressions: Acute Abdomen Series 03/19/18 00:00 IMPRESSION: Dilated small bowel and stomach. Differential diagnosis includes small bowel ileus and low-grade small bowel obstruction. Abdomen/Pelvis CT 03/20/18 00:00 IMPRESSION: No CT evidence for a small bowel obstruction. No other significant intra-abdominal or pelvic abnormalities were identified. Other findings as noted above Chest X-Ray 03/23/18 00:00 IMPRESSION: Very limited study demonstrates stable cardiomegaly and pulmonary vascular congestion. Assessment & Plan - Diagnosis (1) Acute respiratory failure with hypoxia and hypercarbia Is this a current diagnosis for this admission?: Yes Plan: Slightly improved at this time (2) C. difficile diarrhea Is this a current diagnosis for this admission?: Yes (3) Fever Qualifiers: Fever type: unspecified Qualified Code(s): R50.9 - Fever, unspecified Is this a current diagnosis for this admission?: Yes (4) Morbid obesity Is this a current diagnosis for this admission?: Yes Plan: obesity hypoventilation (5) Chronic kidney disease Qualifiers: Chronic kidney disease stage: unspecified stage Qualified Code(s): N18.9 - Chronic kidney disease, unspecified
[2018-03-26] MEDS: TRAZODONE HCL 50 MG TABLET PO SCH (23:00)
[2018-03-26] MEDS: ATORVASTATIN CALCIUM 20 MG TABLET PO SCH (23:00)
[2018-03-27] MEDS: PREGABALIN 75 MG CAPSULE PO SCH ×2 (05:45→13:50)
[2018-03-27] MEDS: LEVOTHYROXINE SODIUM 0.088 MG TABLET PO SCH (05:45)
[2018-03-27] MEDS: HEPARIN SOD (PORCINE) 5,000 UNIT/ML 1 ML SYRINGE SUBCUT SCH ×2 (05:45→13:50)
[2018-03-27] MEDS: VANCOMYCIN HCL INJ 500 MG VIAL PO SCH (05:45)
[2018-03-27] MEDS: SODIUM CHLORIDE NASAL SPRAY 44 ML NASL SCH ×3 (07:37→15:04)
[2018-03-27] MEDS: INSULIN LISPRO 100 UNIT/ML 3 ML VIAL SUBCUT PRN (07:37)
[2018-03-27 10:45] VITALS: BP 152/66
[2018-03-27] MEDS: DOCUSATE SODIUM 100 MG CAPSULE PO SCH (10:54)
[2018-03-27] MEDS: ASPIRIN 81 MG TABLET, CHEWABLE PO SCH (10:54)
[2018-03-27] MEDS: FUROSEMIDE 80 MG TABLET PO SCH (10:54)
[2018-03-27] MEDS: CARVEDILOL 12.5 MG TABLET PO SCH (10:54)
[2018-03-27] MEDS: CHOLECALCIFEROL (D3) 1,000 UNIT TABLET PO SCH (10:54)
[2018-03-27] MEDS: FERROUS SULFATE 325 MG TABLET PO SCH (10:54)
[2018-03-27] MEDS: AMLODIPINE BESYLATE 10 MG TABLET PO SCH (10:55)
[2018-03-27] MEDS: INSULIN GLARGINE,HUM.REC.ANLOG 300 UNIT/3 ML INSULN.PEN SUBCUT SCH (10:55)
[2018-03-27] MEDS: LACTOBACILLUS ACIDOPHILUS 250 MG TAB PO SCH (10:55)
[2018-03-27] MEDS: FAMOTIDINE 20 MG TABLET PO SCH (10:55)
[2018-03-27] MEDS: CETIRIZINE HCL ORAL SOLN 5 MG/5 ML UDCUP PO SCH (10:55)
[2018-03-27] MEDS: FLUTICASONE NASAL SPRAY 50 MCG/SPRY 120 SPRAY/16 GM NASL SCH (11:01)
--- NOTE | 2018-03-27 11:20 | PDOC PROGRESS REPORT ---
Subjective Progress Note for:: 03/27/18 Subjective:: Feeling about the same may be a little better Reason For Visit: SEPSIS/TIFFANIE/DEHYDRATION Physical Exam Vital Signs: Temp Pulse Resp BP Pulse Ox 98.1 F 80 15 152/66 H 91 L 03/27/18 07:34 03/27/18 07:34 03/27/18 03:50 03/27/18 07:34 03/27/18 07:34 Intake & Output 03/26/18 03/27/18 03/28/18 06:59 06:59 06:59 Intake Total 900 1350 Output Total 2600 4675 Balance -1700 -3321 Weight 147.6 kg 140.1 kg General appearance: PRESENT: no acute distress, cooperative, disheveled, morbidly obese Head exam: PRESENT: atraumatic, normocephalic Eye exam: PRESENT: conjunctiva pale, EOMI, PERRLA. ABSENT: nystagmus, periorbital swelling, scleral icterus Mouth exam: PRESENT: dry mucosa, neck supple, tongue midline Neck exam: ABSENT: carotid bruit, JVD, lymphadenopathy, thyromegaly, tracheal deviation, tracheostomy Respiratory exam: PRESENT: decreased breath sounds, prolonged expiratory phas, rales, rhonchi, unlabored, wheezes. ABSENT: retraction, stridor Cardiovascular exam: PRESENT: RRR, +S1, +S2 Pulses: PRESENT: normal radial pulses GI/Abdominal exam: PRESENT: normal bowel sounds, soft Gentrourinary exam: PRESENT: indwelling catheter Extremities exam: ABSENT: calf tenderness, clubbing, joint swelling Musculoskeletal exam: ABSENT: deformity, dislocation Neurological exam: PRESENT: alert, awake Skin exam: PRESENT: dry, warm Results Laboratory Results: 03/24/18 04:57 03/26/18 05:23 Impressions: Acute Abdomen Series 03/19/18 00:00 IMPRESSION: Dilated small bowel and stomach. Differential diagnosis includes small bowel ileus and low-grade small bowel obstruction. Abdomen/Pelvis CT 03/20/18 00:00 IMPRESSION: No CT evidence for a small bowel obstruction. No other significant intra-abdominal or pelvic abnormalities were identified. Other findings as noted above Chest X-Ray 03/23/18 00:00 IMPRESSION: Very limited study demonstrates stable cardiomegaly and pulmonary vascular congestion. Assessment & Plan - Diagnosis (1) Acute respiratory failure with hypoxia and hypercarbia Is this a current diagnosis for this admission?: Yes Plan: Slightly improved at this time (2) C. difficile diarrhea Is this a current diagnosis for this admission?: Yes (3) Fever Qualifiers: Fever type: unspecified Qualified Code(s): R50.9 - Fever, unspecified Is this a current diagnosis for this admission?: Yes (4) Morbid obesity Is this a current diagnosis for this admission?: Yes Plan: obesity hypoventilation (5) Chronic kidney disease Qualifiers: Chronic kidney disease stage: unspecified stage Qualified Code(s): N18.9 - Chronic kidney disease, unspecified
--- NOTE | 2018-03-27 12:04 | PDOC TRANSFER SUMMARY ---
General - Admit/Disc Date/PCP Admission Date/Primary Care Provider: 03/15/18 14:39 NICOLETTE RIZO MD Discharge Date: 03/27/18 - Discharge Diagnosis (1) Acute respiratory failure with hypoxia and hypercarbia Is this a current diagnosis for this admission?: Yes Summary: Secondary to congestive heart failure exacerbation and probable obesity hypoventilation syndrome. She is back to her baseline oxygen requirements. (2) Acute on chronic diastolic (congestive) heart failure Is this a current diagnosis for this admission?: Yes Summary: She was diuresed with IV Lasix. Currently stable on p.o. Lasix. (3) C. difficile diarrhea Is this a current diagnosis for this admission?: Yes Summary: She will complete a course of therapy with p.o. vancomycin. This is a recurrent problem for the patient. (4) Acute encephalopathy Is this a current diagnosis for this admission?: Yes Summary: Likely due to hypercapnic respiratory failure. She has CO2 narcosis. She is back to her baseline mentation. (5) Obstructive sleep apnea Is this a current diagnosis for this admission?: Yes Summary: Continue CPAP at night (6) Acute on chronic renal failure Is this a current diagnosis for this admission?: Yes Summary: She is about the same. Her renal function waxes and wanes depending on her volume status. She is stable (7) Morbid obesity with BMI of 50.0-59.9, adult Is this a current diagnosis for this admission?: Yes Summary: Certainly her weight is contributing to all of her respiratory issues. Dietary discretion is advised (8) Diabetes Is this a current diagnosis for this admission?: Yes Summary: Continue lower dose of Lantus with sliding scale coverage and resume her oral medications (9) Anemia of chronic disease Is this a current diagnosis for this admission?: Yes Summary: Stable (10) Hypernatremia Is this a current diagnosis for this admission?: Yes Summary: This is quite mild. (11) Full code status Is this a current diagnosis for this admission?: Yes - Additional Information Resuscitation Status: Full Code Discharge Diet: Diabetic Discharge Activity: Activity As Tolerated, Balance Activity w/Rest, Slowly Increase Activity, Supervised Activity Prescriptions: Vancomycin HCl [Vancocin Inj 500 mg Vial] 500 mg PO Q6 #56 tab Home Medications: Amlodipine Besylate [Norvasc 10 mg Tablet] 10 mg PO DAILY #30 tablet 12/15/17 Atorvastatin Calcium [Lipitor 20 mg Tablet] 20 mg PO QHS #30 tablet 12/15/17 Carvedilol [Coreg 12.5 mg Tablet] 12.5 mg PO Q12 #60 tablet 12/15/17 Cetirizine HCl [Zyrtec 10 mg Tablet] 10 mg PO DAILY #30 tablet 12/15/17 Fenofibrate Nanocrystallized [Tricor 145 mg Tablet] 145 mg PO QHS #30 tablet 07/24 Ferrous Sulfate [Feosol 325 mg Tablet] 325 mg PO BID #60 tablet 12/15/17 Levothyroxine Sodium [Synthroid 0.088 mg Tablet] 0.088 mg PO Q6AM #30 tablet 07/24 Aspirin [Aspirin EC] 81 mg PO DAILY 03/15/18 Cholecalciferol (Vitamin D3) [Vitamin D3 1000 Unit Tablet] 5,000 unit PO DAILY 03/15/18 Clobetasol Propionate [Cormax Solution] 1 applic TP QHS MDD TO FLARE AREAS SCALP /EAR LOBES 03/15/18 Furosemide [Lasix 80 mg Tablet] 80 mg PO BID 03/15/18 Glimepiride [Amaryl 4 mg Tablet] 4 mg PO Q12 03/15/18 Insulin Lispro [Humalog Insulin (Lispro) 100 unit/mL] 0 unit SUBCUT .SLD SCALE 03/15/18 Metolazone [Zaroxolyn 2.5 mg Tablet] 2.5 mg PO MOWEFR@0800 MDD 30-60MINS BEFORE LASIX 03/15/18 Pimecrolimus [Elidel] 1 applic TP BID MDD SCALY AREAS OF FACE AND EARS 03/15/18 Pregabalin [Lyrica 75 mg Capsule] 75 mg PO Q8 03/15/18 Trazodone HCl [Desyrel 50 mg Tablet] 50 mg PO QHS 03/15/18 Docusate Sodium [Colace 100 mg Capsule] 100 mg PO DAILY capsule 03/27/18 Famotidine [Pepcid 20 mg Tablet] 20 mg PO DAILY tablet 03/27/18 Fluticasone Propionate [Flonase Nasal Viola 50 Mcg/Viola 16 gm] 2 spray NASL DAILY spray.pump 03/27/18 Insulin Glargine,Hum.rec.anlog [Lantus Insulin 100 Unit/mL] 10 unit SUBCUT Q12 insuln.pen 03/27/18 Lactobacillus Acidophilus [Bacid 250 mg Tablet] 500 mg PO BID tab 03/27/18 Phenol/Sodium Phenolate [Chloraseptic Sore Throat Viola 177 ml] 2 spray PO PRN PRN bottle 03/27/18 Sodium Chloride [[place] Nasal Viola 44 ml Bottle] 1 spray NASL ACHS bottle 03/27 Vancomycin HCl [Vancocin Inj 500 mg Vial] 500 mg PO Q6 #56 tab 03/27/18 History of Present Illness Admission Date/PCP: 03/15/18 14:39 NICOLETTE RIZO MD History of Present Illness: LORETO JOSHI is a 67 year old female who presented to the emergency room with altered mental status and shortness of breath. Hospital Course Hospital Course: The patient is a morbidly obese 67-year-old female who resides at a local [facility]. She has a known history of chronic kidney disease and recurrent episodes of Clostridium difficile due to treatment for chronic UTIs. She has had a fecal transplant in the past. She had been having increased amounts of diarrhea at home. She presented to the emergency room with altered mental status. She was found to be somewhat febrile and she was referred for admission. Ultimately she did test positive for Clostridium difficile. She was started on p.o. vancomycin. She was found to be as far as her altered mental status was concerned she was found to be quite hypercapnic and was having an acute on chronic diastolic congestive heart failure exacerbation. She was diuresed with IV Lasix. She was followed by Dr. Lancaster from the pulmonology service. Overall she has greatly improved. Her mentation is back to its baseline. She will complete a long course of p.o. vancomycin and her nursing facility. She is still having some episodes of diarrhea but it is greatly improved since the time of admission. Her labs are stable and it is felt that she can safely be discharged with close outpatient follow-up. At this point maximum hospital benefit has been reached. She will be transferred back to her facility today in stable condition. Physical Exam Vital Signs: Temp Pulse Resp BP Pulse Ox 98.1 F 80 15 152/66 H 91 L 03/27/18 07:34 03/27/18 07:34 03/27/18 03:50 03/27/18 07:34 03/27/18 07:34 Intake & Output 03/26/18 03/27/18 03/28/18 06:59 06:59 06:59 Intake Total 900 1350 Output Total 2608 2578 Balance -1700 -3325 Weight 147.6 kg 140.1 kg General appearance: PRESENT: no acute distress, morbidly obese, well-developed, well-nourished Head exam: PRESENT: atraumatic, normocephalic Ear exam: PRESENT: normal external ear exam Mouth exam: PRESENT: moist, tongue midline Respiratory exam: PRESENT: clear to auscultation emperatriz, other - She is diminished in the lower bases bilaterally. This was an anterior exam and somewhat suboptimal. ABSENT: rales, rhonchi, wheezes Cardiovascular exam: PRESENT: RRR. ABSENT: diastolic murmur, rubs, systolic murmur GI/Abdominal exam: PRESENT: normal bowel sounds, soft. ABSENT: distended, guarding, mass, organolmegaly, rebound, tenderness Rectal exam: PRESENT: deferred Extremities exam: PRESENT: full ROM. ABSENT: calf tenderness, clubbing, pedal edema Musculoskeletal exam: ABSENT: ambulatory Neurological exam: PRESENT: alert, awake, oriented to person, oriented to place , oriented to time, oriented to situation, CN II-XII grossly intact. ABSENT: motor sensory deficit Psychiatric exam: PRESENT: appropriate affect, normal mood. ABSENT: homicidal ideation, suicidal ideation Skin exam: PRESENT: dry, intact, warm. ABSENT: cyanosis, rash Results Laboratory Results: 03/24/18 04:57 03/26/18 05:23 Impressions: Acute Abdomen Series 03/19/18 00:00 IMPRESSION: Dilated small bowel and stomach. Differential diagnosis includes small bowel ileus and low-grade small bowel obstruction. Abdomen/Pelvis CT 03/20/18 00:00 IMPRESSION: No CT evidence for a small bowel obstruction. No other significant intra-abdominal or pelvic abnormalities were identified. Other findings as noted above Chest X-Ray 03/23/18 00:00 IMPRESSION: Very limited study demonstrates stable cardiomegaly and pulmonary vascular congestion. Transfer Plan - Time Spent with Patient Time spent with patient: Greater than 30 Minutes Qualifiers - * PATIENT BEING DISCHARGED WITH ANY OF THE FOLLOWING DIAGNOSIS: Heart Failure VTE patient discharged on overlapping Therapy?: No Reason(s) for not prescribing Overlap Therapy:: Not indicated Stroke Pt being discharged on Anti-thrombolytic therapy?: No Reason(s) for not prescribing Anti-thrombolytic therapy:: Not indicated Stroke Pt being discharged on Anti-coagulation therapy?: No Reason(s) for not prescribing Anti-coagulation therapy:: Not indicated Stroke Pt being discharged on Statins?: No Reason(s) for not prescribing Statins therapy:: Not indicated PA Pt being discharged on Aspirin therapy?: No Reason(s) for not prescribing Aspirin therapy:: Not indicated PA Pt being discharged on Statins?: No Reason(s) for not prescribing Statin therapy:: Not indicated PA Pt discharged ACEI/ARBS?: No Reason(s) for not prescribing ACEI/ARBS:: Not indicated HF Pt being discharged on ACEI for LVEF less than 40%?: No Reason(s) for not prescribing ACEI:: Not indicated HF Pt being discharged on ARBS for LVEF less than 40%?: No Reason(s) for not prescribing ARBS:: Not indicated HF Pt with Afib discharged with Warfarin?: No Reason(s) for not prescribing Warfarin:: Not indicated HF Pt discharged on evidence-based Beta Bharath:: Yes Plan Discharge Plan: She will be transferred back to her [facility] facility today in stable condition. Time Spent: Greater than 30 Minutes
== END 2018-03-27 16:11 | DRG 291 ==
LOC: ER 11:06 → EH 14:39 → UNDOADMIN 14:39 → 3N 15:58 → EH 15:58
PROVIDERS: ADMIT Internal Medicine; ATTEND Internal Medicine
PROC: 3E0F73Z Introduction of Anti-inflammatory into Respiratory Tract, Via Natural or Artificial Opening (ICD-10-PCS; 2018-03-15)
PROC: 5A09557 Assistance with Respiratory Ventilation, Greater than 96 Consecutive Hours, Continuous Positive Airway Pressure (ICD-10-PCS; principal; 2018-03-16)
PROC: 0D9670Z Drainage of Stomach with Drainage Device, Via Natural or Artificial Opening (ICD-10-PCS; 2018-03-19)
DX: I13.0 Hypertensive heart and chronic kidney disease with heart failure and stage 1 through stage 4 chronic kidney disease, or unspecified chronic kidney disease (principal); J96.01 Acute respiratory failure with hypoxia; I50.33 Acute on chronic diastolic (congestive) heart failure; G93.40 Encephalopathy, unspecified; N17.0 Acute kidney failure with tubular necrosis; J96.02 Acute respiratory failure with hypercapnia; E66.2 Morbid (severe) obesity with alveolar hypoventilation; Z68.43 Body mass index [BMI] 50.0-59.9, adult; A04.72 Enterocolitis due to Clostridium difficile, not specified as recurrent; E87.0 Hyperosmolality and hypernatremia; N39.0 Urinary tract infection, site not specified; N18.4 Chronic kidney disease, stage 4 (severe); E86.0 Dehydration; E11.22 Type 2 diabetes mellitus with diabetic chronic kidney disease; D63.1 Anemia in chronic kidney disease; I48.0 Paroxysmal atrial fibrillation; I25.10 Atherosclerotic heart disease of native coronary artery without angina pectoris; E78.00 Pure hypercholesterolemia, unspecified; J44.9 Chronic obstructive pulmonary disease, unspecified; E03.9 Hypothyroidism, unspecified; M10.9 Gout, unspecified; F32.9 Major depressive disorder, single episode, unspecified; B96.20 Unspecified Escherichia coli [E. coli] as the cause of diseases classified elsewhere; R11.12 Projectile vomiting; I87.8 Other specified disorders of veins; Z74.01 Bed confinement status; I25.2 Old myocardial infarction; Z85.41 Personal history of malignant neoplasm of cervix uteri; Z79.4 Long term (current) use of insulin; Z79.899 Other long term (current) drug therapy; Z90.49 Acquired absence of other specified parts of digestive tract; Z82.49 Family history of ischemic heart disease and other diseases of the circulatory system
CPT/HCPCS: 36415; 36600; 51701; 71045; 74022; 74176; 80048; 80053; 81001; 82803; 82962; 83605; 83735; 84484; 85025; 85027; 85610; 86850; 86900; 86901; 86920; 87040; 87086; 87088; 87186; 87493; 93005; 93010; 94640; 94660; 96361; 96374; 99285; J0692; J0696; J1335; J1644; J1815; J1940; J2405; J2543; J2550; J3370; J3490; J7030; J7060; J7620; S0164

== ENCOUNTER 2018-10-07 22:35 | Emergency (ER) | payer MEDICARE, MEDICAID ==
[2018-10-07] MEDS ORDERED: ONDANSETRON HCL INJ/PF 4 MG/2 ML SDV IV ONE (22:42)
[2018-10-07] MEDS ORDERED: NORMAL SALINE 1000 ML 500 ML IV ONE (22:42)
[2018-10-08 00:02] LABS: ABSOLUTE BASOPHILS # (AUTO) 0.1 10^3/uL (0.0-0.2); ABSOLUTE EOSINOPHILS # (AUTO) 0.2 10^3/uL (0.0-0.6); ABSOLUTE LYMPHOCYTES (AUTO) 1.8 10^3/uL (0.5-4.7); ABSOLUTE MONOCYTES (AUTO) 0.7 10^3/uL (0.1-1.4); ABSOLUTE NEUT (AUTO) 5.9 10^3/uL (1.7-8.2); BASOPHILS % (AUTO) 0.7 % (0-2); HEMATOCRIT 34.1 % (36.0-47.0); HEMOGLOBIN 11.3 g/dL (12.0-15.5); LYMPHOCYTES % (AUTO) 20.2 % (13-45); MEAN CORPUSCULAR HEMOGLOBIN 30.9 pg (27.0-33.4); MEAN CORPUSCULAR VOLUME 94 fl (80-97); MONOCYTES % (AUTO) 8.6 % (3-13); PLATELET COUNT 205 10^3/uL (150-450); RED BLOOD COUNT 3.65 10^6/uL (3.72-5.28); RED CELL DISTRIBUTION WIDTH 13.8 % (11.5-14.0); SEGMENTED NEUTROPHILS % (AUTO) 68.5 % (42-78); TOTAL CELLS COUNTED % (AUTO) 100 %; WHITE BLOOD COUNT 8.7 10^3/uL (4.0-10.5)
[2018-10-08 00:20] LABS: ALANINE AMINOTRANSFERASE 23 U/L (9-52); ALKALINE PHOSPHATASE 66 U/L (38-126); ASPARTATE AMINO TRANSFERASE 37 U/L (14-36); BILIRUBIN,DIRECT 0.2 mg/dL (0.0-0.4); BILIRUBIN,TOTAL 0.6 mg/dL (0.2-1.3); BLOOD UREA NITROGEN 32 mg/dL (7-20); CALCIUM 10.8 mg/dL (8.4-10.2); CHLORIDE 102 mmol/L (98-107); GLUCOSE 99 mg/dL (75-110); POTASSIUM 4.1 mmol/L (3.6-5.0); SODIUM 148.7 mmol/L (137-145); TOTAL PROTEIN 7.7 g/dL (6.3-8.2)
--- NOTE | 2018-10-08 00:29 | ER Document Report ---
ED General - General Chief Complaint: Nausea/Vomiting Stated Complaint: NAUSEA/VOMITING Time Seen by Provider: 10/07/18 22:42 Notes: Patient is a 68-year-old female with a past medical history of coronary artery disease, prior CVAs with residual right-sided deficits that preclude her from walking causing residence in a nursing facility, hypertension, diabetes, who presents with 24-48 hours of persistent nausea and vomiting. The patient states that she is vomiting bile and has only had a small bowel movement earlier today. Son at the bedside reports that this appears very similar to when the patient has had small bowel obstructions in the past. The patient has not had fever or constitutional symptoms. She denies abdominal pain pain. Nothing seems to improve or worsen her symptoms. She has not seen her general physician regarding today's concerns. TRAVEL OUTSIDE OF THE [place] IN LAST 30 DAYS: No - Related Data Allergies/Adverse Reactions: No Known Allergies Allergy (Verified 03/15/18 15:04) Past Medical History - General Information source: Patient - Social History Smoking Status: Former Smoker Chew tobacco use (# tins/day): No Frequency of alcohol use: None Drug Abuse: None Lives with: Long Term Family History: Hypertension Patient has suicidal ideation: No Patient has homicidal ideation: No - Past Medical History Cardiac Medical History: Reports: Hx Atrial Fibrillation - Paroxysmal, Hx Congestive Heart Failure, Hx Coronary Artery Disease, Hx Heart Attack, Hx Hypercholesterolemia, Hx Hypertension Denies: Hx DVT, Hx Pulmonary Embolism Pulmonary Medical History: Reports: Hx COPD, Hx Pneumonia, Hx Sleep Apnea Denies: Hx Asthma, Hx Bronchitis Neurological Medical History: Denies: Hx Cerebrovascular Accident, Hx Seizures Endocrine Medical History: Reports: Hx Diabetes Mellitus Type 1, Hx Diabetes Mellitus Type 2, Hx Hypothyroidism. Denies: Hx Hyperthyroidism Renal/ Medical History: Reports: Hx End Stage Renal Disease. Denies: Hx Peritoneal Dialysis Malignancy Medical History: Reports: Hx Cervical Cancer GI Medical History: Denies: Hx Cirrhosis, Hx Hepatitis Musculoskeletal Medical History: Reports Hx Arthritis, Reports Hx Gout Skin Medical History: Denies Hx Eczema, Denies Hx Psoriasis Psychiatric Medical History: Reports: Hx Depression Infectious Medical History: Reports: Hx C-Diff - History of severe persistent C. difficile while in [place] and underwent fec. Denies: Hx Hepatitis Past Surgical History: Reports: Hx Abdominal Surgery - umbilical hernia, Hx Appendectomy, Hx Section, Hx Cholecystectomy, Hx Herniorrhaphy, Other - Breast cyst, history of fecal transplant for C. difficile. Denies: Hx Hysterectomy - Immunizations Hx Diphtheria, Pertussis, Tetanus Vaccination: Yes Hx Pneumococcal Vaccination: 08/06/15 Review of Systems - Review of Systems Notes: Constitutional: Negative for fever. HENT: Negative for sore throat. Eyes: Negative for visual changes. Cardiovascular: Negative for chest pain. Respiratory: Negative for shortness of breath. Gastrointestinal: Positive nausea and vomiting Genitourinary: Negative for dysuria. Musculoskeletal: Negative for back pain. Skin: Negative for rash. Neurological: Negative for headaches, weakness or numbness. 10 point ROS negative except as marked above and in HPI. Physical Exam - Vital signs Interpretation: Normal Notes: PHYSICAL EXAMINATION: GENERAL: Appears chronically ill, morbidly obese but in no acute distress HEAD: Atraumatic, normocephalic. EYES: Pupils equal round and reactive to light, extraocular movements intact, sclera anicteric, conjunctiva are normal. ENT: nares patent, oropharynx clear without exudates. Moderate dry mucous membranes. NECK: Normal range of motion, supple without lymphadenopathy LUNGS: Breath sounds clear to auscultation bilaterally and equal. No wheezes rales or rhonchi. HEART: Regular tachycardia without murmurs ABDOMEN: Soft, obese abdomen, nontender, normoactive bowel sounds. No guarding , no rebound. No masses appreciated. EXTREMITIES: Normal range of motion, no pitting or edema. No cyanosis. NEUROLOGICAL: No focal neurological deficits. Moves all extremities spontaneously and on command. PSYCH: Normal mood, normal affect. SKIN: Warm, Dry, normal turgor, no rashes or lesions noted. Course - Re-evaluation Re-evalutation: 10/08/18 00:26 Patient presents with 24 hours of persistent nausea, vomiting and only having a small bowel movement in the past 48 hours. Patient denies associated abdominal pain. On exam patient appears quite dehydrated. She has no focal abdominal tenderness to palpation. Initial vitals show tachycardia but are otherwise unremarkable. Patient does have a recurrent history of small bowel obstructions in the past. Past surgical history includes a cholecystectomy, appendectomy and prior C-sections. Labs are pending. Will also obtain CT scan abdomen pelvis to further evaluate for possible small bowel obstruction given her recurrent history of the same. 10/08/18 01:55 CT scan of the abdomen pelvis unremarkable without any evidence of a small bowel obstruction. Urinalysis is consistent with a probable pyelonephritis with white blood cell clumps and could account for the patient's persistent vomiting. She has been given a dose of ceftriaxone here in the emergency department as well as IV fluids. Her renal functions are actually improved from her most recent assessment. She has tolerated oral intake at this time without difficulty. Urine culture has been sent. Patient will be started on cephalexin. At this time will discharge with return precautions and follow-up recommendations. Verbal discharge instructions given a the bedside and opportunity for questions given. Medication warnings reviewed. Patient is in agreement with this plan and has verbalized understanding of return precautions and the need for primary care follow-up in the next 24-72 hours. - Laboratory Result Diagrams: 10/07/18 23:30 10/07/18 23:30 Laboratory results interpreted by me: 10/07/18 10/07/18 10/08/18 23:30 23:30 00:02 RBC 3.65 L Hgb 11.3 L Hct 34.1 L Sodium 148.7 H Carbon Dioxide 39 H BUN 32 H Creatinine 1.51 H Est GFR ( Amer) 41 L Est GFR (Non-Af Amer) 34 L Calcium 10.8 H AST 37 H Urine Protein 30 H Ur Leukocyte Esterase MODERATE H Urine Ascorbic Acid 20 H - Diagnostic Test Radiology reviewed: Reports reviewed Discharge - Discharge Clinical Impression: Pyelonephritis, Chronic kidney disease, stage 3 Nausea and vomiting Qualifiers: Vomiting type: unspecified Vomiting Intractability: non-intractable Qualified Code(s): R11.2 - Nausea with vomiting, unspecified Condition: Stable Disposition: HOME, SELF-CARE Additional Instructions: You have been diagnosed with a condition called pyelonephritis which is an infection involving your kidneys and bladder. This is likely the cause of your vomiting. You have been given a dose of antibiotics here in the emergency department to help begin to treat this infection. Your also being sent home on antibiotics. Complete the course even if you feel better. Please return if you have persistent vomiting, pass out, have worsening pain, become unable to tolerate fluids, or have any other symptoms that are concerning to you. Please follow-up with your primary care physician in the next 24-48 hours. Prescriptions: Cephalexin Monohydrate [Keflex 500 mg Capsule] 500 mg PO Q6H 7 Days capsule Referrals: RAO PAGE MD [Primary Care Provider] - Follow up as needed
[2018-10-08 00:32] LABS: ANION GAP 8 (5-19)
[2018-10-08 00:35] LABS: CARBON DIOXIDE 39 mmol/L (22-30)
[2018-10-08 00:36] LABS: AMORPHOUS SEDIMENT,URINE TRACE /HPF; APPEARANCE,URINE CLEAR; BILIRUBIN,URINE NEGATIVE (NEGATIVE); COLOR,URINE YELLOW; GLUCOSE, URINE NEGATIVE (NEGATIVE); KETONES,URINE NEGATIVE (NEGATIVE); LEUKOCYTE ESTERASE,URINE MODERATE (NEGATIVE); NITRITE,URINE NEGATIVE (NEGATIVE); PROTEIN,URINE 30 mg/dL (NEGATIVE); URINE SPECIFIC GRAVITY 1.011; UROBILINOGEN,URINE NEGATIVE mg/dL (<2.0)
[2018-10-08] MEDS ORDERED: CEFTRIAXONE INJ 1000 MG VIAL IV ONE (01:27)
--- NOTE | 2018-10-08 01:47 | RADIOLOGY REPORT (SQ) ---
EXAM DESCRIPTION: CT ABDOMEN PELVIS WITH IV CONTRAST COMPLETED DATE/TME: 10/08/2018 00:24 CLINICAL HISTORY: 68 years, Female, n/v eval sbo COMPARISON: Prior CT 03/20/2018 TECHNIQUE: 461 Images stored on PACS. All CT scanners at this facility use dose modulation, iterative reconstruction, and/or weight based dosing when appropriate to reduce radiation dose to as low as reasonably achievable (ALARA). [facility]: Dose Right [facility]: CareDose [facility]: Dose Right [facility]: Teradose 4D [facility]: [employer] LIMITATIONS: None. FINDINGS: Limited evaluation of the lung bases demonstrates minor bibasilar pleural thickening. Degenerative changes of the lumbar spine. Osseous structures are otherwise grossly intact. Diffuse fatty infiltrative change to the liver. The spleen, adrenal glands, pancreas, and kidneys are unremarkable. Status post cholecystectomy. Moderate atheromatous changes. No gross evidence for bowel obstruction. Normal appendix. No free air or free fluid. IMPRESSION: Negative for acute intra-abdominal/pelvic process. Incidental findings, as above TECHNICAL DOCUMENTATION: Quality ID # [id number]: Final reports with documentation of one or more dose reduction techniques (e.g., Automated exposure control, adjustment of the mA and/or kV according to patient size, use of iterative reconstruction technique) copyright 2010 [employer]- All Rights Reserved
[2018-10-08 02:32] VITALS: BP 144/59
== END 2018-10-08 02:48 ==
LOC: ER 22:35
DX: N12 Tubulo-interstitial nephritis, not specified as acute or chronic (principal); I13.0 Hypertensive heart and chronic kidney disease with heart failure and stage 1 through stage 4 chronic kidney disease, or unspecified chronic kidney disease; E11.22 Type 2 diabetes mellitus with diabetic chronic kidney disease; N18.3 Chronic kidney disease, stage 3 (moderate); I50.9 Heart failure, unspecified; R11.2 Nausea with vomiting, unspecified; I25.2 Old myocardial infarction; I69.951 Hemiplegia and hemiparesis following unspecified cerebrovascular disease affecting right dominant side; I25.10 Atherosclerotic heart disease of native coronary artery without angina pectoris; I48.91 Unspecified atrial fibrillation; E78.00 Pure hypercholesterolemia, unspecified; Z87.891 Personal history of nicotine dependence; Z85.41 Personal history of malignant neoplasm of cervix uteri; Z90.49 Acquired absence of other specified parts of digestive tract
CPT/HCPCS: 99284; 96361; 51701; 96375; 96365; 36415; 87086; 83690; 85025; 87088; 80053; 81001; 84484; 87186; 74177; J0696; J2405; J7030

== ENCOUNTER 2018-10-16 21:27 | Inpatient (IN) | payer MEDICARE, MEDICAID ==
--- NOTE | 2018-10-16 22:03 | ER Document Report ---
ED General - General Chief Complaint: Altered Mental Status Stated Complaint: ALTERED MENTAL STATUS Time Seen by Provider: 10/16/18 21:44 Notes: Patient is a 68-year-old female that comes from [facility] for chief complaint of weakness, confusion, shakiness, and difficulty staying awake. Patient states she ate breakfast but has not had much of an appetite since. She has not vomited, she denies chest pain, shortness of breath , fever. Son states that she randomly fell asleep and then woke up, she thought it was the morning. However patient is oriented to person, place, events. She denies headache. She denies fall injury. Past medical history includes CVA with chronic right-sided deficits and limited mobility, hypertension, diabetes, CAD, COPD on 2 L nc at all times, appendectomy, cholecystectomy, small bowel obstruction. TRAVEL OUTSIDE OF THE [place] IN LAST 30 DAYS: No - Related Data Allergies/Adverse Reactions: No Known Allergies Allergy (Verified 03/15/18 15:04) Past Medical History - General Information source: Patient, Relative, Emergency Med Personnel - Social History Smoking Status: Former Smoker Frequency of alcohol use: None Drug Abuse: None Lives with: [facility] Family History: Hypertension - Past Medical History Cardiac Medical History: Reports: Hx Atrial Fibrillation - Paroxysmal, Hx Congestive Heart Failure, Hx Coronary Artery Disease, Hx Heart Attack, Hx Hypercholesterolemia, Hx Hypertension Denies: Hx DVT, Hx Pulmonary Embolism Pulmonary Medical History: Reports: Hx COPD, Hx Pneumonia, Hx Sleep Apnea Denies: Hx Asthma, Hx Bronchitis Neurological Medical History: Denies: Hx Cerebrovascular Accident, Hx Seizures Endocrine Medical History: Reports: Hx Diabetes Mellitus Type 2, Hx Hypothyroidism. Denies: Hx Hyperthyroidism Renal/ Medical History: Reports: Hx End Stage Renal Disease. Denies: Hx Peritoneal Dialysis Malignancy Medical History: Reports: Hx Cervical Cancer GI Medical History: Denies: Hx Cirrhosis, Hx Hepatitis Musculoskeletal Medical History: Reports Hx Arthritis, Reports Hx Gout Skin Medical History: Denies Hx Eczema, Denies Hx Psoriasis Psychiatric Medical History: Reports: Hx Depression Infectious Medical History: Reports: Hx C-Diff - History of severe persistent C. difficile while in [place] and underwent fec. Denies: Hx Hepatitis Past Surgical History: Reports: Hx Abdominal Surgery - umbilical hernia, Hx Appendectomy, Hx Section, Hx Cholecystectomy, Hx Herniorrhaphy, Other - Breast cyst, history of fecal transplant for C. difficile. Denies: Hx Hysterectomy - Immunizations Hx Diphtheria, Pertussis, Tetanus Vaccination: Yes Hx Pneumococcal Vaccination: 08/06/15 Review of Systems - Review of Systems Constitutional: See HPI EENT: No symptoms reported Cardiovascular: No symptoms reported Respiratory: No symptoms reported Gastrointestinal: No symptoms reported Genitourinary: No symptoms reported Female Genitourinary: No symptoms reported Musculoskeletal: No symptoms reported Skin: No symptoms reported Hematologic/Lymphatic: No symptoms reported Neurological/Psychological: See HPI Physical Exam - Vital signs Vitals: Temp Pulse Resp BP Pulse Ox 98.2 F 89 18 146/64 H 97 10/16/18 21:28 10/16/18 21:28 10/16/18 21:28 10/16/18 21:28 10/16/18 21:28 - Notes Notes: GENERAL: Somnolent but easily aroused, answers appropriately and interacts, immediately goes back to sleep or at times mid sentence HEAD: Normocephalic, atraumatic. EYES: Pupils equal, round, and reactive to light. Extraocular movements intact. ENT: Oral mucosa dry, tongue midline. Oropharynx unremarkable. Airway patent. Nares patent, no nasal septal hematoma, TM's intact. NECK: Full range of motion. Supple. Trachea midline. LUNGS: Decreased breath sounds bilaterally, coarse breath sounds bilaterally, no overt rales or rhonchi HEART: Regular rate and rhythm. 2/6 systolic murmur heard throughout ABDOMEN: Soft, non-tender. Questionably mildly distended. Bowel sounds present in all 4 quadrants. GENITOURINARY: Deferred EXTREMITIES: Weakness of the right lower extremity, normal distal neurovascular exam, unremarkable extremity exam otherwise except for healing wound over the left distal tibia anteriorly. BACK: no cervical, thoracic, lumbar midline tenderness. No saddle anesthesia. NEUROLOGICAL: Somnolent but oriented. Normal speech. [cranial nerves II through XII grossly intact]. PSYCH: Normal affect, normal mood. SKIN: Warm, dry, normal turgor. No rashes or lesions noted. Course - Re-evaluation Re-evalutation: Patient is somnolent but arousable, she is oriented, she does not have any neurological deficits except her old reported ones. No fever, unremarkable vital signs. Nonspecific complaints. CBC unremarkable, chemistry showing slightly worse chronic kidney disease compared to prior, minimally elevated potassium, generally unremarkable otherwise. Troponin is negative. Venous blood gas shows acute on chronic respiratory failure with hypercapnia ( PCO2 at 81.9). PH of 7.2. Urinalysis also shows urinary tract infection. Previous culture shows E. coli with mckeon sensitivity. Given Rocephin, started on Solu-Medrol, DuoNeb, placed on BiPAP. Patient tolerated this well. Initially she was requesting Ativan but patient is somnolent and did not require it. Patient remains easily arousable, oxygenating well. I discussed with patient and son, they both state that she has developed wheezing at the facility over the past few days and has started to need more breathing treatments although this was not initially reported. I do suspect COPD exacerbation as the cause. Chest x-ray does not show vascular congestion. 10/17/18 01:[address] Boyd, hospitalist, patient will be admitted to [facility] full admission. - Vital Signs Vital signs: Temp Pulse Resp BP Pulse Ox 98.2 F 89 16 146/64 H 98 10/16/18 21:55 10/16/18 21:55 10/17/18 00:15 10/16/18 21:55 10/17/18 00:15 - Laboratory Result Diagrams: 10/16/18 22:26 10/16/18 22:26 Laboratory results interpreted by me: 10/16/18 10/16/18 10/16/18 22:26 22:26 23:09 RBC 3.33 L Hgb 10.3 L Hct 31.4 L VBG pH VBG pCO2 VBG HCO3 Potassium 5.3 H Carbon Dioxide 35 H BUN 48 H Creatinine 1.88 H Est GFR ( Amer) 32 L Est GFR (Non-Af Amer) 27 L Glucose 201 H Calcium 10.5 H Urine Blood SMALL H Ur Leukocyte Esterase LARGE H 10/16/18 23:42 RBC Hgb Hct VBG pH 7.28 L VBG pCO2 81.9 H* VBG HCO3 37.3 H Potassium Carbon Dioxide BUN Creatinine Est GFR ( Amer) Est GFR (Non-Af Amer) Glucose Calcium Urine Blood Ur Leukocyte Esterase Discharge - Discharge Clinical Impression: Hypercarbia, Lethargic Acute on chronic respiratory failure Qualifiers: Respiratory failure complication: hypercapnia Qualified Code(s): J96.22 - Acute and chronic respiratory failure with hypercapnia Urinary tract infection Qualifiers: Urinary tract infection type: site unspecified Hematuria presence: without hematuria Qualified Code(s): N39.0 - Urinary tract infection, site not specified Condition: Fair Disposition: ADMITTED INPATIENT Admitting Provider: Hospitalist Unit Admitted: IMCU Referrals: RAO PAGE MD [Primary Care Provider] - Follow up as needed
--- NOTE | 2018-10-16 22:25 | RADIOLOGY REPORT (SQ) ---
EXAM DESCRIPTION: XR CHEST 1 VIEW COMPLETED DATE/TME: 10/16/2018 21:58 CLINICAL HISTORY: 68 years, Female, weakness COMPARISON: 03/23/2018 chest x-ray NUMBER OF VIEWS: 1 TECHNIQUE: AP portable upright chest LIMITATIONS: None. FINDINGS: Cardiomegaly. Osteopenia. Atheromatous change thoracic aorta. No pneumothorax. Lungs are clear IMPRESSION: Cardiomegaly. Lungs are clear copyright 2011 [employer]- All Rights Reserved
[2018-10-16 22:39] LABS: ABSOLUTE BASOPHILS # (AUTO) 0.1 10^3/uL (0.0-0.2); ABSOLUTE EOSINOPHILS # (AUTO) 0.3 10^3/uL (0.0-0.6); ABSOLUTE LYMPHOCYTES (AUTO) 1.7 10^3/uL (0.5-4.7); ABSOLUTE MONOCYTES (AUTO) 0.9 10^3/uL (0.1-1.4); ABSOLUTE NEUT (AUTO) 4.6 10^3/uL (1.7-8.2); BASOPHILS % (AUTO) 0.9 % (0-2); EOSINOPHILS % (AUTO) 3.5 % (0-6); HEMATOCRIT 31.4 % (36.0-47.0); HEMOGLOBIN 10.3 g/dL (12.0-15.5); LYMPHOCYTES % (AUTO) 22.7 % (13-45); MEAN CORPUSCULAR HEMOGLOBIN 31.1 pg (27.0-33.4); MEAN CORPUSCULAR HGB CONC 32.9 g/dL (32.0-36.0); MEAN CORPUSCULAR VOLUME 95 fl (80-97); MONOCYTES % (AUTO) 11.8 % (3-13); PLATELET COUNT 203 10^3/uL (150-450); RED BLOOD COUNT 3.33 10^6/uL (3.72-5.28); RED CELL DISTRIBUTION WIDTH 13.9 % (11.5-14.0); SEGMENTED NEUTROPHILS % (AUTO) 61.1 % (42-78); TOTAL CELLS COUNTED % (AUTO) 100 %; WHITE BLOOD COUNT 7.5 10^3/uL (4.0-10.5)
[2018-10-16 22:51] LABS: ALANINE AMINOTRANSFERASE 34 U/L (9-52); ALKALINE PHOSPHATASE 93 U/L (38-126); ANION GAP 5 (5-19); ASPARTATE AMINO TRANSFERASE 23 U/L (14-36); BILIRUBIN,DIRECT 0.2 mg/dL (0.0-0.4); BILIRUBIN,TOTAL 0.3 mg/dL (0.2-1.3); BLOOD UREA NITROGEN 48 mg/dL (7-20); CALCIUM 10.5 mg/dL (8.4-10.2); CARBON DIOXIDE 35 mmol/L (22-30); CHLORIDE 101 mmol/L (98-107); GLUCOSE 201 mg/dL (75-110); POTASSIUM 5.3 mmol/L (3.6-5.0); SODIUM 141.2 mmol/L (137-145); TOTAL PROTEIN 7.2 g/dL (6.3-8.2)
[2018-10-16] MEDS ORDERED: NORMAL SALINE 1000 ML 500 ML IV ONE (23:17)
--- NOTE | 2018-10-16 23:19 | RADIOLOGY REPORT (SQ) ---
EXAM DESCRIPTION: CT HEAD WITHOUT IV CONTRAST COMPLETED DATE/TME: 10/16/2018 21:57 CLINICAL HISTORY: 68 years, Female, confusion, lethargic COMPARISON: Prior CT brain 6-16. TECHNIQUE: 305 Images stored on PACS. All CT scanners at this facility use dose modulation, iterative reconstruction, and/or weight based dosing when appropriate to reduce radiation dose to as low as reasonably achievable (ALARA). [facility]: Dose Right [facility]: CareDose [facility]: Dose Right [facility]: Teradose 4D [facility]: [employer] LIMITATIONS: None. FINDINGS: The globes are intact. Mucosal thickening of the ethmoid air cells and left sphenoid sinus. No displaced or depressed skull fracture. No intra or extra-axial hemorrhage. CT is limited for evaluation of acute infarct. No CT evidence for large or territorial acute infarct. Age-appropriate atrophy with minor small vessel ischemic change. No mass or midline shift. IMPRESSION: Age-appropriate atrophy with minor small vessel ischemic change. Mucosal thickening of the ethmoid air cells and left sphenoid sinus. TECHNICAL DOCUMENTATION: Quality ID # 436: Final reports with documentation of one or more dose reduction techniques (e.g., Automated exposure control, adjustment of the mA and/or kV according to patient size, use of iterative reconstruction technique) copyright 2011 [email or web address]- All Rights Reserved
--- NOTE | 2018-10-16 23:37 | EKG REPORT ---
SEVERITY:- NORMAL ECG - SINUS RHYTHM : Confirmed by: Mara Romreo MD 16-Oct-2018 23:36:37
[2018-10-16 23:51] LABS: VENOUS BLOOD BASE EXCESS 8.2 mmol/L; VENOUS BLOOD HCO3 37.3 mmol/L (20-32); VENOUS BLOOD PH 7.28 (7.30-7.42)
[2018-10-16 23:56] LABS: VENOUS BLOOD PCO2 81.9 mmHg (35-63)
[2018-10-16] MEDS ORDERED: METHYLPREDNISOLONE INJ 125 MG/2 ML SDV IV ONE (23:57)
[2018-10-17] MEDS ORDERED: IPRATROPIUM/ALBUTEROL 0.5-2.5 MG/3 ML AMPUL NEB ONE
[2018-10-17 00:07] LABS: APPEARANCE,URINE CLOUDY; BILIRUBIN,URINE NEGATIVE (NEGATIVE); COLOR,URINE YELLOW; GLUCOSE, URINE NEGATIVE (NEGATIVE); KETONES,URINE NEGATIVE (NEGATIVE); LEUKOCYTE ESTERASE,URINE LARGE (NEGATIVE); NITRITE,URINE NEGATIVE (NEGATIVE); PROTEIN,URINE NEGATIVE (NEGATIVE); URINE SPECIFIC GRAVITY 1.008; UROBILINOGEN,URINE NEGATIVE mg/dL (<2.0)
[2018-10-17] MEDS ORDERED: LORAZEPAM INJ 2 MG/1 ML VIAL IV ONE (00:10)
[2018-10-17] MEDS ORDERED: LORAZEPAM INJ 2 MG/1 ML VIAL ONE (00:14)
[2018-10-17] MEDS ORDERED: CEFTRIAXONE 1 GM/D5W RTU 1 GM/50 ML RTUPB IV ONE (00:33)
[2018-10-17] MEDS ORDERED: MAG HYDROX/AL HYDROX/SIMETH SUSP 30 ML UDCUP PO PRN (01:25)
[2018-10-17] MEDS ORDERED: ONDANSETRON 4 MG TAB.RAPDIS PO PRN ×2 (01:25→12:03)
[2018-10-17] MEDS ORDERED: MAGNESIUM HYDROXIDE SUSP 30 ML UDCUP PO PRN (01:25)
[2018-10-17] MEDS ORDERED: ONDANSETRON HCL INJ/PF 4 MG/2 ML SDV IV PRN (01:25)
[2018-10-17] MEDS ORDERED: GLUCAGON,HUMAN RECOMB 1 MG INJ IM PRN (01:33)
[2018-10-17] MEDS ORDERED: DEXTROSE 50%-WATER 25 GM/50 ML DISP.SYRIN IV PRN ×2 (01:33)
[2018-10-17] MEDS ORDERED: DEXTROSE 40% GEL 15 GM TUBE PO PRN ×2 (01:33)
[2018-10-17] MEDS ORDERED: ALBUTEROL SULFATE 0.083% NEB 2.5 MG/3 ML AMPUL NEB PRN (01:34)
[2018-10-17 03:37] LABS: ARTERIAL BLOOD BASE EXCESS 9.5 mmol/L; ARTERIAL BLOOD H2CO3 2.47 mmol/L (1.05-1.35); ARTERIAL BLOOD HCO3 38.6 mmol/L (20-24); ARTERIAL BLOOD O2 SATURATION 62.9 % (94-98); ARTERIAL BLOOD PH 7.29 (7.35-7.45); ARTERIAL BLOOD TOTAL CO2 41.1 mmol/L (21-25)
[2018-10-17 03:39] LABS: ARTERIAL BLOOD FIO2 30%
[2018-10-17 05:01] LABS: ARTERIAL BLOOD BASE EXCESS 8.3 mmol/L; ARTERIAL BLOOD H2CO3 2.17 mmol/L (1.05-1.35); ARTERIAL BLOOD HCO3 36.4 mmol/L (20-24); ARTERIAL BLOOD O2 SATURATION 57.5 % (94-98); ARTERIAL BLOOD PH 7.32 (7.35-7.45); ARTERIAL BLOOD TOTAL CO2 38.7 mmol/L (21-25)
[2018-10-17 05:02] LABS: ARTERIAL BLOOD FIO2 4L
[2018-10-17 05:05] LABS: ARTERIAL BLOOD PCO2 72.2 mmHg (35-45); ARTERIAL BLOOD PO2 33.7 mmHg (80-100)
[2018-10-17] MEDS ORDERED: LEVOTHYROXINE SODIUM 0.088 MG TABLET PO SCH (06:00)
[2018-10-17 06:33] LABS: ARTERIAL BLOOD BASE EXCESS 7.9 mmol/L; ARTERIAL BLOOD H2CO3 1.97 mmol/L (1.05-1.35); ARTERIAL BLOOD HCO3 35.3 mmol/L (20-24); ARTERIAL BLOOD O2 SATURATION 94.9 % (94-98); ARTERIAL BLOOD PCO2 65.6 mmHg (35-45); ARTERIAL BLOOD PH 7.35 (7.35-7.45); ARTERIAL BLOOD TOTAL CO2 37.3 mmol/L (21-25)
[2018-10-17 06:34] LABS: ARTERIAL BLOOD FIO2 30%
[2018-10-17] MEDS: METHYLPREDNISOLONE INJ 40 MG/1 ML SDV IV SCH ×3 (06:46→21:57)
[2018-10-17] MEDS: PREGABALIN 75 MG CAPSULE PO SCH ×2 (06:48→13:12)
[2018-10-17] MEDS: HEPARIN SOD (PORCINE) 5,000 UNIT/ML 1 ML SYRINGE SUBCUT SCH ×3 (06:48→21:54)
[2018-10-17] MEDS: NORMAL SALINE 1000 ML 1,000 ML IV PRN ×2 (07:56→17:21)
[2018-10-17] MEDS: LEVALBUTEROL HCL NEB 1.25 MG/3 ML AMPUL NEB SCH ×2 (08:07→16:25)
[2018-10-17] MEDS: BUDESONIDE NEB 0.5 MG/2 ML AMPUL NEB SCH ×2 (08:08→19:41)
[2018-10-17] MEDS: IPRATROPIUM BROMIDE 0.02% NEB 0.5 MG/2.5 ML AMPUL NEB SCH ×2 (08:08→16:25)
[2018-10-17] MEDS: CHOLECALCIFEROL (D3) 1,000 UNIT TABLET PO SCH (09:39)
[2018-10-17] MEDS: FERROUS SULFATE 325 MG TABLET PO SCH (09:40)
[2018-10-17] MEDS: PANTOPRAZOLE SODIUM 40 MG VIAL IV SCH ×2 (09:40→21:57)
[2018-10-17] MEDS: CEFTRIAXONE SODIUM 1,000 MG in DEXTROSE 5%-WATER 50 ML IV SCH (09:40)
[2018-10-17] MEDS: METOPROLOL SUCCINATE 50 MG TAB.SR.24H PO SCH (09:40)
[2018-10-17] MEDS: AMLODIPINE BESYLATE 10 MG TABLET PO SCH (09:40)
[2018-10-17] MEDS: DOCUSATE SODIUM 100 MG/10 ML UDC PO SCH ×2 (09:50→17:18)
[2018-10-17] MEDS ORDERED: ASPIRIN 81 MG TABLET, ENT COATED PO SCH (10:00)
[2018-10-17] MEDS ORDERED: CEFTRIAXONE 1 GM/D5W RTU 1 GM/50 ML RTUPB IV SCH (10:00)
[2018-10-17] MEDS ORDERED: INSULIN GLARGINE,HUM.REC.ANLOG 300 UNIT/3 ML INSULN.PEN SUBCUT SCH (10:00)
[2018-10-17] MEDS ORDERED: TORSEMIDE 20 MG TABLET PO SCH (10:00)
[2018-10-17] MEDS: SODIUM CHLORIDE NASAL SPRAY 44 ML NASL SCH ×5 (11:03→22:32)
--- NOTE | 2018-10-17 11:06 | PDOC H&P ---
History of Present Illness Admission Date/PCP: 10/17/18 01:49 RAO PAGE MD Patient complains of: Malaise History of Present Illness: LORETO JOSHI is a 68 year old female who presented to the ER with an acute history of generalized malaise, weakness, mental confusion/disorientation and fatigue beginning on the morning of her ER visit and gradually worsening through the day. Her malaise was also accompanied by mild intermittent dyspnea and a feeling of restlessness. She denies nausea, vomiting, diarrhea, abdominal pain, dysuria, fever, chills, cough, chest pain and headache. She admits several similar episodes in the past related to exacerbations of her COPD. She has not identified any aggravating or amelioratiing factors for her symptoms. In the ER she was found to be hypoxic and hypercapneic and thus her acute on chronic respiratory failure was defined and she was admitted for further treatment. Past Medical History Cardiac Medical History: Reports: Atrial Fibrillation - Paroxysmal, Congestive Heart Failure, Coronary Artery Disease, Myocardial Infarction, Hyperlipidema, Hypertension Denies: DVT, Pulmonary Embolism Pulmonary Medical History: Reports: Chronic Obstructive Pulmonary Disease (COPD) , Pneumonia, Sleep Apnea Denies: Asthma, Bronchitis EENT Medical History: Reports: None Neurological Medical History: Reports: Ischemic CVA Denies: Migraine, Seizures Endocrine Medical History: Reports: Diabetes Mellitus Type 2, Hypothyroidism Denies: Diabetes Mellitus Type 1, Hyperthyroidism Renal/ Medical History: Reports: Chronic Kidney Disease Denies: Nephrolithiasis Malignancy Medical History: Reports: Cervical Cancer GI Medical History: Denies: Cirrhosis, Hepatitis Musculoskeltal Medical History: Reports: Arthritis, Gout Skin Medical History: Denies: Eczema, Psoriasis Psychiatric Medical History: Reports: Depression Denies: Alcohol Dependency, Substance Abuse, Tobacco Dependency Traumatic Medical History: Reports: None Hematology: Reports: Anemia Denies: Bleeding Tendencies Infectious Medical History: Reports: Clostridium Difficile - History of severe persistent C. difficile while in [place] and underwent fec Past Surgical History Past Surgical History: Reports: Appendectomy, Section, Cholecystectomy , Herniorrhaphy, Other - Breast cyst, history of fecal transplant for C. difficile Denies: Hysterectomy Social History Information Source: Patient, Relative Lives with: Intermediate Smoking Status: Former Smoker Frequency of Alcohol Use: None Hx Recreational Drug Use: No Drugs: None Hx Prescription Drug Abuse: No - Advance Directive Resuscitation Status: Full Code Surrogate healthcare decision maker:: Son Family History Family History: DM, Hypertension, Malignancy, Thyroid Disfunction Parental Family History Reviewed: Yes Children Family History Reviewed: No Sibling(s) Family History Reviewed.: Yes Medication/Allergy Home Medications: Amlodipine Besylate [Norvasc 10 mg Tablet] 10 mg PO DAILY #30 tablet 12/15/17 Atorvastatin Calcium [Lipitor 20 mg Tablet] 20 mg PO QHS #30 tablet 12/15/17 Carvedilol [Coreg 12.5 mg Tablet] 12.5 mg PO Q12 #60 tablet 12/15/17 Cetirizine HCl [Zyrtec 10 mg Tablet] 10 mg PO DAILY #30 tablet 12/15/17 Fenofibrate Nanocrystallized [Tricor 145 mg Tablet] 145 mg PO QHS #30 tablet 07/24 Ferrous Sulfate [Feosol 325 mg Tablet] 325 mg PO BID #60 tablet 12/15/17 Levothyroxine Sodium [Synthroid 0.088 mg Tablet] 0.088 mg PO Q6AM #30 tablet 07/24 Aspirin [Aspirin EC] 81 mg PO DAILY 03/15/18 Cholecalciferol (Vitamin D3) [Vitamin D3 1000 Unit Tablet] 5,000 unit PO DAILY 03/15/18 Clobetasol Propionate [Cormax Solution] 1 applic TP QHS MDD TO FLARE AREAS SCALP /EAR LOBES 03/15/18 Furosemide [Lasix 80 mg Tablet] 80 mg PO BID 03/15/18 Glimepiride [Amaryl 4 mg Tablet] 4 mg PO Q12 03/15/18 Insulin Lispro [Humalog Insulin (Lispro) 100 unit/mL] 0 unit SUBCUT .SLD SCALE 03/15/18 Metolazone [Zaroxolyn 2.5 mg Tablet] 2.5 mg PO MOWEFR@0800 MDD 30-60MINS BEFORE LASIX 03/15/18 Pimecrolimus [Elidel] 1 applic TP BID MDD SCALY AREAS OF FACE AND EARS 03/15/18 Pregabalin [Lyrica 75 mg Capsule] 75 mg PO Q8 03/15/18 Trazodone HCl [Desyrel 50 mg Tablet] 50 mg PO QHS 03/15/18 Docusate Sodium [Colace 100 mg Capsule] 100 mg PO DAILY capsule 03/27/18 Famotidine [Pepcid 20 mg Tablet] 20 mg PO DAILY tablet 03/27/18 Fluticasone Propionate [Flonase Nasal [place] 50 Mcg/[place] 16 gm] 2 spray NASL DAILY spray.pump 03/27/18 Insulin Glargine,Hum.rec.anlog [Lantus Insulin 100 Unit/mL] 10 unit SUBCUT Q12 insuln.pen 03/27/18 Lactobacillus Acidophilus [Bacid 250 mg Tablet] 500 mg PO BID tab 03/27/18 Phenol/Sodium Phenolate [Chloraseptic Sore Throat [place] 177 ml] 2 spray PO PRN PRN bottle 03/27/18 Sodium Chloride [Nye Nasal [place] 44 ml Bottle] 1 spray NASL ACHS bottle 03/27 Vancomycin HCl [Vancocin Inj 500 mg Vial] 500 mg PO Q6 #56 tab 03/27/18 Cephalexin Monohydrate [Keflex 500 mg Capsule] 500 mg PO Q6H 7 Days capsule 01/21 Allergies/Adverse Reactions: No Known Allergies Allergy (Verified 03/15/18 15:04) Review of Systems Constitutional: PRESENT: as per HPI, fatigue, weakness. ABSENT: chills, fever(s ), headache(s) Eyes: ABSENT: visual disturbances, other - Eye pain Ears: ABSENT: hearing changes, other - Ear pain Nose, Mouth, and Throat: ABSENT: mouth pain, sore throat Cardiovascular: ABSENT: chest pain, dyspnea on exertion, palpitations Respiratory: PRESENT: dyspnea. ABSENT: cough Gastrointestinal: ABSENT: abdominal pain, constipation, diarrhea, hematemesis, nausea, vomiting Genitourinary: ABSENT: dysuria, hematuria Musculoskeletal: ABSENT: back pain, deformity Integumentary: ABSENT: pruritus, rash Neurological: PRESENT: as per HPI, confusion, weakness. ABSENT: convulsions, dizziness, memory loss, syncope, tremor(s) Psychiatric: ABSENT: anxiety, depression Endocrine: ABSENT: cold intolerance, heat intolerance Hematologic/Lymphatic: ABSENT: easy bleeding, easy bruising Physical Exam Vital Signs: Temp Pulse Resp BP Pulse Ox 98.9 F 97 13 173/77 H 97 10/17/18 07:44 10/17/18 08:08 10/17/18 08:08 10/17/18 07:44 10/17/18 08:08 Intake & Output 10/15/18 10/16/18 10/17/18 23:59 23:59 23:59 Intake Total 50 Balance 50 Weight 135 kg General appearance: PRESENT: no acute distress, cooperative, morbidly obese, other - On BiPAP Head exam: PRESENT: atraumatic, normocephalic Eye exam: PRESENT: EOMI. ABSENT: nystagmus, scleral icterus Ear exam: PRESENT: normal external ear exam. ABSENT: drainage Mouth exam: PRESENT: dry mucosa, neck supple Neck exam: ABSENT: JVD, thyromegaly, tracheal deviation Respiratory exam: PRESENT: symmetrical, other - On BiPAP Cardiovascular exam: PRESENT: RRR. ABSENT: clicks, gallop, rubs Pulses: PRESENT: normal radial pulses, normal dorsalis pedis pul Vascular exam: PRESENT: normal capillary refill. ABSENT: pallor GI/Abdominal exam: PRESENT: normal bowel sounds, soft. ABSENT: tenderness Rectal exam: PRESENT: deferred Extremities exam: ABSENT: joint swelling, pedal edema Musculoskeletal exam: ABSENT: deformity, dislocation Neurological exam: PRESENT: alert, oriented to person, oriented to place, oriented to time, motor sensory deficit - right sided weakness chronic Psychiatric exam: PRESENT: appropriate affect, normal mood Skin exam: ABSENT: jaundice, rash, urticaria Results Laboratory Results: 10/17/18 10/17/18 10/17/18 02:50 04:45 05:50 Carbonic Acid 2.47 H 2.17 H Cancelled HCO3/H2CO3 Ratio 15:1 16:1 Cancelled ABG pH 7.29 L 7.32 L Cancelled ABG pCO2 82.0 H* 72.2 H* Cancelled ABG pO2 38.0 L* 33.7 L* Cancelled ABG HCO3 38.6 H 36.4 H Cancelled ABG O2 Saturation 62.9 L 57.5 L Cancelled ABG Base Excess 9.5 8.3 Cancelled FiO2 30% 4L Cancelled 10/17/18 06:27 Carbonic Acid 1.97 H HCO3/H2CO3 Ratio 17:1 ABG pH 7.35 ABG pCO2 65.6 H ABG pO2 80.0 ABG HCO3 35.3 H ABG O2 Saturation 94.9 ABG Base Excess 7.9 FiO2 30% Impressions: Head CT 10/16/18 21:57 IMPRESSION: Age-appropriate atrophy with minor small vessel ischemic change. Mucosal thickening of the ethmoid air cells and left sphenoid sinus. TECHNICAL DOCUMENTATION: Quality ID # [id number]: Final reports with documentation of one or more dose reduction techniques (e.g., Automated exposure control, adjustment of the mA and/or kV according to patient size, use of iterative reconstruction technique) copyright 2010 [employer] [place]- All Rights Reserved Chest X-Ray 10/16/18 21:58 IMPRESSION: Cardiomegaly. Lungs are clear copyright 2010 [employer] [place]- All Rights Reserved Assessment & Plan - Diagnosis (1) Acute on chronic respiratory failure Qualifiers: Respiratory failure complication: hypercapnia Qualified Code(s): J96.22 - Acute and chronic respiratory failure with hypercapnia Is this a current diagnosis for this admission?: Yes Plan: Treat with BiPAP and consult pulmonology as needed to reduce hypercapnia which appears to be the cause of her mental confusion and other symptoms. (2) Acute encephalopathy Is this a current diagnosis for this admission?: Yes Plan: Treat with BiPAP and consult pulmonology as needed to reduce hypercapnia which appears to be the cause of her mental confusion and other symptoms. (3) Pyuria Is this a current diagnosis for this admission?: Yes Plan: Empiric treatment pending culture results (4) Hypothyroidism Qualifiers: Hypothyroidism type: unspecified Qualified Code(s): E03.9 - Hypothyroidism , unspecified Is this a current diagnosis for this admission?: Yes Plan: Continue prior therapy and check thyroid functions (5) Diabetes mellitus type 2 in obese Is this a current diagnosis for this admission?: Yes Plan: Continue prior therapy and add sliding scale coverage. (6) Morbid obesity with BMI of 50.0-59.9, adult Is this a current diagnosis for this admission?: Yes Plan: Encourage weight loss - Time Time Spent: 30 to 50 Minutes Critical Time spent with patient: Less than 15 minutes Medications reviewed and adjusted accordingly: Yes Anticipated discharge: SNF - Inpatient Certification Based on my medical assessment, after consideration of the patient's comorbidities, presenting symptoms, or acuity I expect that the services needed warrant INPATIENT care.: Yes I certify that my determination is in accordance with my understanding of Medicare's requirements for reasonable and necessary INPATIENT services [42 CFR 412.3e].: Yes Medical Necessity: Significant Comorbidiites Make Outpatient Treatment Too Risky , Need Close Monitoring Due to Risk of Patient Decompensation
[2018-10-17] MEDS ORDERED: PHENOL PO PRN (11:39)
[2018-10-17] MEDS ORDERED: (PENDING PHARMACY ID) (Ondansetron Hcl [Zofran 4 Mg Tablet] 4 MG) PO PRN (11:39)
--- NOTE | 2018-10-17 11:52 | PDOC PROGRESS REPORT ---
Subjective Progress Note for:: 10/17/18 Subjective:: 10/17/[id number]-jxin-old female came to the emergency room with complaints of generalized malaise, weakness, confusion and disorientation and fatigue. She is also complaining of shortness of breath and feeling of restlessness. She has history of previous episodes secondary to COPD exacerbation. In the ER she was hypoxic and hypercapnic. And admitted for acute on chronic respiratory failure requiring BiPAP. Patient is not comfortable with the BiPAP she wants to switch back to CPAP which she is using at home. Other than that no complaints. Comfortably in the bed. Reason For Visit: ACUTE ON CHRONIC RESPIRATORY FAILURE, HYPERCAPNIA Physical Exam Vital Signs: Temp Pulse Resp BP Pulse Ox 98.9 F 97 13 173/77 H 97 10/17/18 07:44 10/17/18 08:08 10/17/18 08:08 10/17/18 07:44 10/17/18 08:08 Intake & Output 10/16/18 10/17/18 10/18/18 06:59 06:59 06:59 Intake Total 50 50 Balance 50 50 Weight 135 kg General appearance: PRESENT: no acute distress Head exam: PRESENT: atraumatic Eye exam: PRESENT: PERRLA Mouth exam: PRESENT: moist Neck exam: ABSENT: carotid bruit, JVD, lymphadenopathy, thyromegaly Respiratory exam: PRESENT: decreased breath sounds, tachypnea, wheezes Cardiovascular exam: PRESENT: tachycardia GI/Abdominal exam: PRESENT: normal bowel sounds, soft. ABSENT: distended, guarding, mass, organolmegaly, rebound, tenderness Neurological exam: PRESENT: alert, awake, oriented to person, oriented to place , oriented to time, oriented to situation, CN II-XII grossly intact. ABSENT: motor sensory deficit Psychiatric exam: PRESENT: appropriate affect, normal mood. ABSENT: homicidal ideation, suicidal ideation Results Laboratory Results: 10/17/18 10/17/18 10/17/18 02:50 04:45 05:50 Carbonic Acid 2.47 H 2.17 H Cancelled HCO3/H2CO3 Ratio 15:1 16:1 Cancelled ABG pH 7.29 L 7.32 L Cancelled ABG pCO2 82.0 H* 72.2 H* Cancelled ABG pO2 38.0 L* 33.7 L* Cancelled ABG HCO3 38.6 H 36.4 H Cancelled ABG O2 Saturation 62.9 L 57.5 L Cancelled ABG Base Excess 9.5 8.3 Cancelled FiO2 30% 4L Cancelled 10/17/18 06:27 Carbonic Acid 1.97 H HCO3/H2CO3 Ratio 17:1 ABG pH 7.35 ABG pCO2 65.6 H ABG pO2 80.0 ABG HCO3 35.3 H ABG O2 Saturation 94.9 ABG Base Excess 7.9 FiO2 30% Impressions: Head CT 10/16/18 21:57 IMPRESSION: Age-appropriate atrophy with minor small vessel ischemic change. Mucosal thickening of the ethmoid air cells and left sphenoid sinus. TECHNICAL DOCUMENTATION: Quality ID # 436: Final reports with documentation of one or more dose reduction techniques (e.g., Automated exposure control, adjustment of the mA and/or kV according to patient size, use of iterative reconstruction technique) copyright 2010 [employer]- All Rights Reserved Chest X-Ray 10/16/18 21:58 IMPRESSION: Cardiomegaly. Lungs are clear copyright 2010 [employer]- All Rights Reserved Assessment & Plan - Diagnosis (1) Acute on chronic respiratory failure Qualifiers: Respiratory failure complication: hypercapnia Qualified Code(s): J96.22 - Acute and chronic respiratory failure with hypercapnia Is this a current diagnosis for this admission?: Yes Plan: 10/17/2018-patient with history of severe COPD and multiple hospitalizations admitted for acute on chronic hypoxic, hypercapnic respiratory failure. Requiring BiPAP. Patient requesting to change BiPAP or CPAP. Patient's latest ABG pH is 7.35/PCO2 65/PO2 80/bicarb is 35. She still have significant CO2 retention. She is getting IV Solu-Medrol 80 mg every 8 hours and nebulizations as needed. She is presently on albuterol nebs every hour as needed and Xopenex every 8 hours scheduled. I am going to change albuterol to every 6 as needed. Chest x-ray did not show any pneumonia. I am going to request for pulmonary consult. I am going to arrange for daily ABGs. (2) Acute encephalopathy Is this a current diagnosis for this admission?: Yes Plan: 10/17/2018-patient's confusion and altered mental status may be secondary to hypercapnia and hypoxia. She is much more alert and oriented this morning during my examination. CT head was negative for acute changes. (3) Pyuria Is this a current diagnosis for this admission?: Yes Plan: 10/17/2018 patient is getting ceftriaxone and vancomycin because urinalysis shows large leukocyte esterase. Urine cultures are pending. BLOOD Cultures are also pending. (4) Diabetes mellitus, type II Qualifiers: Diabetes mellitus long term acute care registered nurse insulin use: unspecified [facility] insulin use status Diabetes mellitus complication detail: with nephropathy Is this a current diagnosis for this admission?: Yes Plan: 10/17/2018-patient history of type 2 diabetes mellitus her blood sugar this morning is 201. I am going to check her hemoglobin A1c. High blood sugars may be secondary to IV Solu-Medrol she is getting. Patient is on glimepiride 4 mg every 12 hours, Lantus 50 units every 12 hours. She is also on sliding scale before meals and at bedtime. (5) Morbid obesity with BMI of 50.0-59.9, adult Is this a current diagnosis for this admission?: Yes Plan: 10/17/2018-diet exercise weight loss was advised. Dietary consult was requested. pathology manager consult was requested. - Time Time Spent with patient: 15-24 minutes Medications reviewed and adjusted accordingly: Yes Anticipated discharge: Home
[2018-10-17] MEDS: INSULIN REG, HUMAN 100 UNIT/ML 3 ML VIAL (PYX) SUBCUT PRN ×2 (12:26→17:17)
[2018-10-17] MEDS: VANCOMYCIN HCL INJ 500 MG VIAL PO SCH ×2 (12:27→17:16)
[2018-10-17] MEDS: PREGABALIN 100 MG CAPSULE PO SCH ×2 (13:17→21:57)
[2018-10-17] MEDS: FENOFIBRATE NANOCRYSTALLIZED 48 MG TABLET PO SCH (17:16)
[2018-10-17] MEDS: FUROSEMIDE 80 MG TABLET PO SCH (17:16)
[2018-10-17] MEDS: ALLOPURINOL 100 MG TABLET PO SCH (17:16)
[2018-10-17] MEDS ORDERED: PIMECROLIMUS TP SCH (18:00)
[2018-10-17] MEDS ORDERED: FENOFIBRATE 54 MG PO SCH (18:00)
[2018-10-17] MEDS ORDERED: FUROSEMIDE 80 MG TABLET PO SCH (18:00)
[2018-10-17] MEDS ORDERED: LIFITEGRAST OU SCH (18:00)
[2018-10-17] MEDS ORDERED: PIMECROLIMUS TOP SCH (18:00)
[2018-10-17] MEDS: GLIMEPIRIDE 4 MG TABLET PO SCH (21:53)
[2018-10-17] MEDS: CARVEDILOL 12.5 MG TABLET PO SCH (21:54)
[2018-10-17] MEDS: TRAZODONE HCL 50 MG TABLET PO SCH (21:54)
[2018-10-17] MEDS: ATORVASTATIN CALCIUM 20 MG TABLET PO SCH (21:56)
[2018-10-17] MEDS ORDERED: CLOBETASOL PROPIONATE 0.05% TOPICAL SOLN 25 ML TP SCH (22:00)
[2018-10-17] MEDS ORDERED: ATORVASTATIN CALCIUM 20 MG TABLET PO SCH (22:00)
[2018-10-17] MEDS ORDERED: CARVEDILOL 12.5 MG TABLET PO SCH (22:00)
[2018-10-17] MEDS ORDERED: TRAZODONE HCL 50 MG TABLET PO SCH (22:00)
[2018-10-17] MEDS: INSULIN GLARGINE,HUM.REC.ANLOG 300 UNIT/3 ML INSULN.PEN SUBCUT SCH (22:31)
[2018-10-17] MEDS: CLOBETASOL PROPIONATE 0.05% TOPICAL SOLN 25 ML TOP SCH (22:32)
[2018-10-18] MEDS: LEVALBUTEROL HCL NEB 1.25 MG/3 ML AMPUL NEB SCH ×3 (00:08→16:40)
[2018-10-18] MEDS: IPRATROPIUM BROMIDE 0.02% NEB 0.5 MG/2.5 ML AMPUL NEB SCH ×3 (00:08→16:40)
[2018-10-18] MEDS ORDERED: VANCOMYCIN HCL INJ 500 MG VIAL ONE ×2 (00:59→06:22)
[2018-10-18] MEDS: VANCOMYCIN HCL INJ 500 MG VIAL PO SCH ×2 (01:21→06:34)
[2018-10-18] MEDS: NORMAL SALINE 1000 ML 1,000 ML IV PRN ×2 (02:55→06:21)
[2018-10-18 05:25] LABS: ABSOLUTE LYMPHOCYTES (AUTO) 1.1 10^3/uL (0.5-4.7); ABSOLUTE MONOCYTES (AUTO) 0.3 10^3/uL (0.1-1.4); ABSOLUTE NEUT (AUTO) 7.1 10^3/uL (1.7-8.2); BASOPHILS % (AUTO) 0.2 % (0-2); HEMATOCRIT 31.7 % (36.0-47.0); HEMOGLOBIN 10.5 g/dL (12.0-15.5); LYMPHOCYTES % (AUTO) 13.3 % (13-45); MEAN CORPUSCULAR HEMOGLOBIN 30.8 pg (27.0-33.4); MEAN CORPUSCULAR HGB CONC 33.1 g/dL (32.0-36.0); MEAN CORPUSCULAR VOLUME 93 fl (80-97); MONOCYTES % (AUTO) 3.7 % (3-13); PLATELET COUNT 209 10^3/uL (150-450); RED BLOOD COUNT 3.41 10^6/uL (3.72-5.28); RED CELL DISTRIBUTION WIDTH 13.8 % (11.5-14.0); SEGMENTED NEUTROPHILS % (AUTO) 82.8 % (42-78); TOTAL CELLS COUNTED % (AUTO) 100 %; WHITE BLOOD COUNT 8.5 10^3/uL (4.0-10.5)
[2018-10-18 05:50] LABS: ANION GAP 10 (5-19); BLOOD UREA NITROGEN 42 mg/dL (7-20); CARBON DIOXIDE 35 mmol/L (22-30); CHLORIDE 100 mmol/L (98-107); GLUCOSE 332 mg/dL (75-110); POTASSIUM 3.6 mmol/L (3.6-5.0); SODIUM 144.6 mmol/L (137-145)
[2018-10-18] MEDS ORDERED: METHYLPREDNISOLONE INJ 40 MG/1 ML SDV IV SCH (06:00)
[2018-10-18] MEDS: PREGABALIN 100 MG CAPSULE PO SCH ×3 (06:14→22:01)
[2018-10-18] MEDS: LEVOTHYROXINE SODIUM 0.088 MG TABLET PO SCH (06:15)
[2018-10-18] MEDS: HEPARIN SOD (PORCINE) 5,000 UNIT/ML 1 ML SYRINGE SUBCUT SCH ×3 (06:16→22:02)
[2018-10-18 06:42] LABS: ARTERIAL BLOOD BASE EXCESS 10.7 mmol/L; ARTERIAL BLOOD H2CO3 1.76 mmol/L (1.05-1.35); ARTERIAL BLOOD HCO3 37.2 mmol/L (20-24); ARTERIAL BLOOD O2 SATURATION 92.9 % (94-98); ARTERIAL BLOOD PCO2 58.6 mmHg (35-45); ARTERIAL BLOOD PH 7.42 (7.35-7.45); ARTERIAL BLOOD PO2 65.9 mmHg (80-100)
[2018-10-18 06:43] LABS: ARTERIAL BLOOD FIO2 28%
[2018-10-18] MEDS: CETIRIZINE 10 MG TABLET PO SCH (07:45)
[2018-10-18] MEDS: FLUTICASONE NASAL SPRAY 50 MCG/SPRY 120 SPRAY/16 GM NASL SCH (07:45)
[2018-10-18] MEDS: INSULIN REG, HUMAN 100 UNIT/ML 3 ML VIAL (PYX) SUBCUT PRN ×4 (07:46→22:02)
[2018-10-18] MEDS: SODIUM CHLORIDE NASAL SPRAY 44 ML NASL SCH ×5 (07:47→21:59)
[2018-10-18] MEDS: DOCUSATE SODIUM 100 MG CAPSULE PO SCH (07:47)
[2018-10-18] MEDS ORDERED: VITC PO SCH (08:00)
[2018-10-18] MEDS ORDERED: ONDANSETRON 4 MG TAB.RAPDIS PO PRN (08:00)
[2018-10-18] MEDS ORDERED: ONDANSETRON HCL INJ/PF 4 MG/2 ML SDV IV PRN (08:00)
[2018-10-18] MEDS ORDERED: CRAN PO SCH (08:00)
[2018-10-18] MEDS ORDERED: AMLODIPINE BESYLATE 10 MG TABLET PO SCH (08:00)
[2018-10-18] MEDS ORDERED: BROMELN PO SCH (08:00)
[2018-10-18] MEDS ORDERED: MANNOSE PO SCH (08:00)
[2018-10-18] MEDS ORDERED: CHOLECALCIFEROL (D3) 1,000 UNIT TABLET PO SCH (08:00)
[2018-10-18] MEDS ORDERED: FOS PO SCH (08:00)
[2018-10-18] MEDS: BUDESONIDE NEB 0.5 MG/2 ML AMPUL NEB SCH ×2 (08:55→20:29)
[2018-10-18] MEDS: AMLODIPINE BESYLATE 10 MG TABLET PO SCH (09:42)
[2018-10-18] MEDS: GLIMEPIRIDE 4 MG TABLET PO SCH ×2 (09:42→22:00)
[2018-10-18] MEDS: FUROSEMIDE 80 MG TABLET PO SCH ×2 (09:43→17:06)
[2018-10-18] MEDS: METOPROLOL SUCCINATE 50 MG TAB.SR.24H PO SCH (09:43)
[2018-10-18] MEDS: CARVEDILOL 12.5 MG TABLET PO SCH ×2 (09:43→22:02)
[2018-10-18] MEDS: FERROUS SULFATE 325 MG TABLET PO SCH (09:43)
[2018-10-18] MEDS: ASPIRIN 81 MG TABLET, ENT COATED PO SCH (09:44)
[2018-10-18] MEDS: CEFTRIAXONE SODIUM 1,000 MG in DEXTROSE 5%-WATER 50 ML IV SCH (09:44)
[2018-10-18] MEDS: CHOLECALCIFEROL (D3) 1,000 UNIT TABLET PO SCH (09:44)
[2018-10-18] MEDS ORDERED: DOCUSATE SODIUM 100 MG CAPSULE PO SCH (10:00)
[2018-10-18] MEDS ORDERED: FLUTICASONE NASAL SPRAY 50 MCG/SPRY 120 SPRAY/16 GM NASL SCH (10:00)
[2018-10-18] MEDS ORDERED: CETIRIZINE 10 MG TABLET PO SCH (10:00)
[2018-10-18] MEDS: INSULIN GLARGINE,HUM.REC.ANLOG 300 UNIT/3 ML INSULN.PEN SUBCUT SCH ×2 (10:27→22:03)
[2018-10-18] MEDS: FAMOTIDINE 20 MG TABLET PO SCH ×2 (10:27→22:00)
--- NOTE | 2018-10-18 10:59 | PDOC PROGRESS REPORT ---
Subjective Progress Note for:: 10/18/18 Subjective:: 10/17/[id number]-vguq-old female came to the emergency room with complaints of generalized malaise, weakness, confusion and disorientation and fatigue. She is also complaining of shortness of breath and feeling of restlessness. She has history of previous episodes secondary to COPD exacerbation. In the ER she was hypoxic and hypercapnic. And admitted for acute on chronic respiratory failure requiring BiPAP. Patient is not comfortable with the BiPAP she wants to switch back to CPAP which she is using at home. Other than that no complaints. Comfortably in the bed. 10/18/2018-patient is comfortably sleeping in bed denies any complaints she wants to sleep more. Acute events in the last 24 hours. To communicate with me very well. Was told me patient is using CPAP on and off. Reason For Visit: ACUTE ON CHRONIC RESPIRATORY FAILURE, HYPERCAPNIA Physical Exam Vital Signs: Temp Pulse Resp BP Pulse Ox 98.3 F 83 16 152/66 H 95 10/18/18 07:51 10/18/18 08:57 10/18/18 08:57 10/18/18 07:51 10/18/18 08:57 Intake & Output 10/17/18 10/18/18 10/19/18 06:59 06:59 06:59 Intake Total 50 3408 Balance 50 3408 Weight 135 kg 132.2 kg General appearance: PRESENT: no acute distress Head exam: PRESENT: atraumatic Eye exam: PRESENT: PERRLA Mouth exam: PRESENT: moist Respiratory exam: PRESENT: decreased breath sounds Cardiovascular exam: PRESENT: RRR. ABSENT: diastolic murmur, rubs, systolic murmur GI/Abdominal exam: PRESENT: normal bowel sounds, soft. ABSENT: distended, guarding, mass, organolmegaly, rebound, tenderness Neurological exam: PRESENT: alert, awake, oriented to person, oriented to place , oriented to time, oriented to situation, CN II-XII grossly intact. ABSENT: motor sensory deficit Psychiatric exam: PRESENT: appropriate affect, normal mood. ABSENT: homicidal ideation, suicidal ideation Results Laboratory Results: 10/18/18 04:48 10/18/18 04:48 10/18/18 10/18/18 10/18/18 04:48 04:48 06:30 WBC 8.5 RBC 3.41 L Hgb 10.5 L Hct 31.7 L MCV 93 MCH 30.8 MCHC 33.1 RDW 13.8 Plt Count 209 Seg Neutrophils % 82.8 H Lymphocytes % 13.3 Monocytes % 3.7 Eosinophils % 0.0 Basophils % 0.2 Absolute Neutrophils 7.1 Absolute Lymphocytes 1.1 Absolute Monocytes 0.3 Absolute Eosinophils 0.0 Absolute Basophils 0.0 Carbonic Acid 1.76 H HCO3/H2CO3 Ratio 21:1 ABG pH 7.42 ABG pCO2 58.6 H ABG pO2 65.9 L ABG HCO3 37.2 H ABG O2 Saturation 92.9 L ABG Base Excess 10.7 FiO2 28% Sodium 144.6 Potassium 3.6 Chloride 100 Carbon Dioxide 35 H Anion Gap 10 BUN 42 H Creatinine 1.50 H Est GFR ( Amer) 42 L Est GFR (Non-Af Amer) 34 L Glucose 332 H Calcium 10.0 Magnesium 1.6 Impressions: Head CT 10/16/18 21:57 IMPRESSION: Age-appropriate atrophy with minor small vessel ischemic change. Mucosal thickening of the ethmoid air cells and left sphenoid sinus. TECHNICAL DOCUMENTATION: Quality ID # 436: Final reports with documentation of one or more dose reduction techniques (e.g., Automated exposure control, adjustment of the mA and/or kV according to patient size, use of iterative reconstruction technique) copyright 2010 [employer]- All Rights Reserved Chest X-Ray 10/16/18 21:58 IMPRESSION: Cardiomegaly. Lungs are clear copyright 2010 [employer]- All Rights Reserved Assessment & Plan - Diagnosis (1) Acute on chronic respiratory failure Qualifiers: Respiratory failure complication: hypercapnia Qualified Code(s): J96.22 - Acute and chronic respiratory failure with hypercapnia Is this a current diagnosis for this admission?: Yes Plan: 10/17/2018-patient with history of severe COPD and multiple hospitalizations admitted for acute on chronic hypoxic, hypercapnic respiratory failure. Requiring BiPAP. Patient requesting to change BiPAP or CPAP. Patient's latest ABG pH is 7.35/PCO2 65/PO2 80/bicarb is 35. She still have significant CO2 retention. She is getting IV Solu-Medrol 80 mg every 8 hours and nebulizations as needed. She is presently on albuterol nebs every hour as needed and Xopenex every 8 hours scheduled. I am going to change albuterol to every 6 as needed. Chest x-ray did not show any pneumonia. I am going to request for pulmonary consult. I am going to arrange for daily ABGs. 10/18/2018-ABG was done today pH is 7.42/PCO2 58/PO2 69 bicarb is 37. Hypercapnia is resolving. Will continue the daily ABG check. Patient is presently on IV Solu-Medrol 40 mg every 8 hours I am going to change it to every 12. She is getting nebulizations albuterol every 6 as needed and Xopenex every 8 scheduled. Pulmonary consult was requested. Patient is using CPAP. We will continue the present management. (2) Acute encephalopathy Is this a current diagnosis for this admission?: Yes Plan: 10/17/2018-patient's confusion and altered mental status may be secondary to hypercapnia and hypoxia. She is much more alert and oriented this morning during my examination. CT head was negative for acute changes. 10/18/2018-PT may be secondary to hypercapnia/hypoxia. Resolved. Patient alert and awake communicating very well. (3) Pyuria Is this a current diagnosis for this admission?: Yes Plan: 10/17/2018 patient is getting ceftriaxone and vancomycin because urinalysis shows large leukocyte esterase. Urine cultures are pending. BLOOD Cultures are also pending. 10/18/2018-patient is on ceftriaxone and vancomycin. Urinalysis shows large leukocyte esterase. The urine cultures are pending. Blood cultures are negative so far. We will continue the present management. Abnormal E8 may be secondary to colonization. (4) Diabetes mellitus, type II Qualifiers: Diabetes mellitus manager intermediate insulin use: unspecified [facility] insulin use status Diabetes mellitus complication detail: with nephropathy Is this a current diagnosis for this admission?: Yes Plan: 10/17/2018-patient history of type 2 diabetes mellitus her blood sugar this morning is 201. I am going to check her hemoglobin A1c. High blood sugars may be secondary to IV Solu-Medrol she is getting. Patient is on glimepiride 4 mg every 12 hours, Lantus 50 units every 12 hours. She is also on sliding scale before meals and at bedtime. 10/18/2018-latest blood sugars are in 300s. Hemoglobin A1c is 6.4. She is getting IV Solu-Medrol 40 mg every 8 hours. Changed to every 12. Presently she is on glimepiride 4 mg every 12 hours Lantus 40 units every 12 hours. She is also on sliding scale before meals at bedtime. Continue the present management. (5) Morbid obesity with BMI of 50.0-59.9, adult Is this a current diagnosis for this admission?: Yes Plan: 10/17/2018-diet exercise weight loss was advised. Dietary consult was requested. breastfeeding educator consult was requested. 10/18/2018 patient's BMI is more than 50. Diet exercise weight loss was requested. Dietary consult was requested. - Time Time Spent with patient: 15-24 minutes Medications reviewed and adjusted accordingly: Yes
[2018-10-18] MEDS: ALLOPURINOL 100 MG TABLET PO SCH (17:06)
[2018-10-18] MEDS: FENOFIBRATE NANOCRYSTALLIZED 48 MG TABLET PO SCH (17:06)
[2018-10-18] MEDS: METHYLPREDNISOLONE INJ 40 MG/1 ML SDV IV SCH (17:06)
[2018-10-18] MEDS: TRAZODONE HCL 50 MG TABLET PO SCH (22:00)
[2018-10-18] MEDS: ATORVASTATIN CALCIUM 20 MG TABLET PO SCH (22:01)
[2018-10-18] MEDS: CLOBETASOL PROPIONATE 0.05% TOPICAL SOLN 25 ML TOP SCH ×2 (22:04→22:13)
[2018-10-19] MEDS: IPRATROPIUM BROMIDE 0.02% NEB 0.5 MG/2.5 ML AMPUL NEB SCH ×3 (00:50→16:17)
[2018-10-19] MEDS: LEVALBUTEROL HCL NEB 1.25 MG/3 ML AMPUL NEB SCH ×3 (00:50→16:17)
[2018-10-19 05:07] LABS: ABSOLUTE LYMPHOCYTES (AUTO) 1.3 10^3/uL (0.5-4.7); ABSOLUTE MONOCYTES (AUTO) 0.9 10^3/uL (0.1-1.4); ABSOLUTE NEUT (AUTO) 6.6 10^3/uL (1.7-8.2); BASOPHILS % (AUTO) 0.1 % (0-2); HEMATOCRIT 31.5 % (36.0-47.0); HEMOGLOBIN 10.7 g/dL (12.0-15.5); LYMPHOCYTES % (AUTO) 14.5 % (13-45); MEAN CORPUSCULAR HEMOGLOBIN 31.2 pg (27.0-33.4); MEAN CORPUSCULAR HGB CONC 33.9 g/dL (32.0-36.0); MEAN CORPUSCULAR VOLUME 92 fl (80-97); MONOCYTES % (AUTO) 10.7 % (3-13); PLATELET COUNT 207 10^3/uL (150-450); RED BLOOD COUNT 3.42 10^6/uL (3.72-5.28); RED CELL DISTRIBUTION WIDTH 13.9 % (11.5-14.0); SEGMENTED NEUTROPHILS % (AUTO) 74.7 % (42-78); TOTAL CELLS COUNTED % (AUTO) 100 %; WHITE BLOOD COUNT 8.8 10^3/uL (4.0-10.5)
[2018-10-19] MEDS: PREGABALIN 100 MG CAPSULE PO SCH ×3 (05:35→21:53)
[2018-10-19] MEDS: LEVOTHYROXINE SODIUM 0.088 MG TABLET PO SCH (05:35)
[2018-10-19] MEDS: HEPARIN SOD (PORCINE) 5,000 UNIT/ML 1 ML SYRINGE SUBCUT SCH ×3 (05:35→21:53)
[2018-10-19] MEDS: METHYLPREDNISOLONE INJ 40 MG/1 ML SDV IV SCH (05:35)
[2018-10-19 05:46] LABS: ANION GAP 7 (5-19); BLOOD UREA NITROGEN 47 mg/dL (7-20); CALCIUM 9.8 mg/dL (8.4-10.2); CARBON DIOXIDE 39 mmol/L (22-30); CHLORIDE 99 mmol/L (98-107); GLUCOSE 299 mg/dL (75-110); POTASSIUM 3.5 mmol/L (3.6-5.0); SODIUM 145.1 mmol/L (137-145)
[2018-10-19 06:27] LABS: ARTERIAL BLOOD BASE EXCESS 10.5 mmol/L; ARTERIAL BLOOD H2CO3 1.51 mmol/L (1.05-1.35); ARTERIAL BLOOD HCO3 35.7 mmol/L (20-24); ARTERIAL BLOOD O2 SATURATION 96.8 % (94-98); ARTERIAL BLOOD PCO2 50.3 mmHg (35-45); ARTERIAL BLOOD PH 7.47 (7.35-7.45); ARTERIAL BLOOD PO2 84.8 mmHg (80-100); ARTERIAL BLOOD TOTAL CO2 37.2 mmol/L (21-25)
[2018-10-19 06:31] LABS: ARTERIAL BLOOD FIO2 2L
[2018-10-19] MEDS: BUDESONIDE NEB 0.5 MG/2 ML AMPUL NEB SCH ×2 (08:17→20:03)
[2018-10-19] MEDS: DOCUSATE SODIUM 100 MG CAPSULE PO SCH (08:35)
[2018-10-19] MEDS: CETIRIZINE 10 MG TABLET PO SCH (08:35)
[2018-10-19] MEDS: FLUTICASONE NASAL SPRAY 50 MCG/SPRY 120 SPRAY/16 GM NASL SCH (08:35)
[2018-10-19] MEDS: INSULIN REG, HUMAN 100 UNIT/ML 3 ML VIAL (PYX) SUBCUT PRN ×3 (08:36→18:06)
[2018-10-19] MEDS: SODIUM CHLORIDE NASAL SPRAY 44 ML NASL SCH ×4 (08:36→21:58)
[2018-10-19] MEDS: FAMOTIDINE 20 MG TABLET PO SCH ×2 (09:19→21:53)
[2018-10-19] MEDS: AMLODIPINE BESYLATE 10 MG TABLET PO SCH (09:19)
[2018-10-19] MEDS: CARVEDILOL 12.5 MG TABLET PO SCH ×2 (09:19→21:53)
[2018-10-19] MEDS: METOPROLOL SUCCINATE 50 MG TAB.SR.24H PO SCH (09:19)
[2018-10-19] MEDS: FUROSEMIDE 80 MG TABLET PO SCH ×2 (09:19→18:05)
[2018-10-19] MEDS: CHOLECALCIFEROL (D3) 1,000 UNIT TABLET PO SCH (09:20)
[2018-10-19] MEDS: GLIMEPIRIDE 4 MG TABLET PO SCH ×2 (09:20→21:53)
[2018-10-19] MEDS: ASPIRIN 81 MG TABLET, ENT COATED PO SCH (09:20)
[2018-10-19] MEDS: FERROUS SULFATE 325 MG TABLET PO SCH (09:20)
[2018-10-19] MEDS: INSULIN GLARGINE,HUM.REC.ANLOG 300 UNIT/3 ML INSULN.PEN SUBCUT SCH (09:23)
--- NOTE | 2018-10-19 10:25 | PDOC PROGRESS REPORT ---
Subjective Progress Note for:: 10/19/18 Subjective:: 10/17/[id number]-[id number]-old female came to the emergency room with complaints of generalized malaise, weakness, confusion and disorientation and fatigue. She is also complaining of shortness of breath and feeling of restlessness. She has history of previous episodes secondary to COPD exacerbation. In the ER she was hypoxic and hypercapnic. And admitted for acute on chronic respiratory failure requiring BiPAP. Patient is not comfortable with the BiPAP she wants to switch back to CPAP which she is using at home. Other than that no complaints. Comfortably in the bed. 10/18/2018-patient is comfortably sleeping in bed denies any complaints she wants to sleep more. Acute events in the last 24 hours. To communicate with me very well. Was told me patient is using CPAP on and off. 10/19/2018-patient is communicating very well. She says she is feeling much better today. She is able to tolerate the CPAP all night last night. No acute events in the last 24 hours. Reason For Visit: ACUTE ON CHRONIC RESPIRATORY FAILURE, HYPERCAPNIA Physical Exam Vital Signs: Temp Pulse Resp BP Pulse Ox 98.1 F 83 20 170/77 H 99 10/19/18 07:42 10/19/18 07:42 10/19/18 07:42 10/19/18 07:42 10/19/18 07:42 Intake & Output 10/18/18 10/19/18 10/20/18 06:59 06:59 06:59 Intake Total 3408 2410 Balance 3408 2410 Weight 132.2 kg 134.6 kg General appearance: PRESENT: mild distress Head exam: PRESENT: atraumatic Eye exam: PRESENT: PERRLA Neck exam: ABSENT: carotid bruit, JVD, lymphadenopathy, thyromegaly Respiratory exam: PRESENT: decreased breath sounds, other - Mild wheezes at the bases on examination. Cardiovascular exam: PRESENT: tachycardia GI/Abdominal exam: PRESENT: other - Obese abdomen soft nontender bowel sounds are present. Neurological exam: PRESENT: alert, awake, oriented to person, oriented to place , oriented to time, oriented to situation, CN II-XII grossly intact. ABSENT: motor sensory deficit Psychiatric exam: PRESENT: appropriate affect, normal mood. ABSENT: homicidal ideation, suicidal ideation Results Laboratory Results: 10/19/18 04:50 10/19/18 04:50 10/19/18 10/19/18 10/19/18 04:50 04:50 06:15 WBC 8.8 RBC 3.42 L Hgb 10.7 L Hct 31.5 L MCV 92 MCH 31.2 MCHC 33.9 RDW 13.9 Plt Count 207 Seg Neutrophils % 74.7 Lymphocytes % 14.5 Monocytes % 10.7 Eosinophils % 0.0 Basophils % 0.1 Absolute Neutrophils 6.6 Absolute Lymphocytes 1.3 Absolute Monocytes 0.9 Absolute Eosinophils 0.0 Absolute Basophils 0.0 Carbonic Acid 1.51 H HCO3/H2CO3 Ratio 23:1 ABG pH 7.47 H ABG pCO2 50.3 H ABG pO2 84.8 ABG HCO3 35.7 H ABG O2 Saturation 96.8 ABG Base Excess 10.5 FiO2 2L Sodium 145.1 H Potassium 3.5 L Chloride 99 Carbon Dioxide 39 H Anion Gap 7 BUN 47 H Creatinine 1.50 H Est GFR ( Amer) 42 L Est GFR (Non-Af Amer) 34 L Glucose 299 H Calcium 9.8 Magnesium 1.5 L Impressions: Head CT 10/16/18 21:57 IMPRESSION: Age-appropriate atrophy with minor small vessel ischemic change. Mucosal thickening of the ethmoid air cells and left sphenoid sinus. TECHNICAL DOCUMENTATION: Quality ID # 436: Final reports with documentation of one or more dose reduction techniques (e.g., Automated exposure control, adjustment of the mA and/or kV according to patient size, use of iterative reconstruction technique) copyright 2010 [email or web address]- All Rights Reserved Chest X-Ray 10/16/18 21:58 IMPRESSION: Cardiomegaly. Lungs are clear copyright 2010 [email or web address]- All Rights Reserved Assessment & Plan - Diagnosis (1) Acute on chronic respiratory failure Qualifiers: Respiratory failure complication: hypercapnia Qualified Code(s): J96.22 - Acute and chronic respiratory failure with hypercapnia Is this a current diagnosis for this admission?: Yes Plan: 10/17/2018-patient with history of severe COPD and multiple hospitalizations admitted for acute on chronic hypoxic, hypercapnic respiratory failure. Requiring BiPAP. Patient requesting to change BiPAP or CPAP. Patient's latest ABG pH is 7.35/PCO2 65/PO2 80/bicarb is 35. She still have significant CO2 retention. She is getting IV Solu-Medrol 80 mg every 8 hours and nebulizations as needed. She is presently on albuterol nebs every hour as needed and Xopenex every 8 hours scheduled. I am going to change albuterol to every 6 as needed. Chest x-ray did not show any pneumonia. I am going to request for pulmonary consult. I am going to arrange for daily ABGs. 10/18/2018-ABG was done today pH is 7.42/PCO2 58/PO2 69 bicarb is 37. Hypercapnia is resolving. Will continue the daily ABG check. Patient is presently on IV Solu-Medrol 40 mg every 8 hours I am going to change it to every 12. She is getting nebulizations albuterol every 6 as needed and Xopenex every 8 scheduled. Pulmonary consult was requested. Patient is using CPAP. We will continue the present management. 10/19/2018 the ABG done today pH is 7.47 PCO2 50 PO2 84 bicarb is 35 oxygen saturation is 96.8%. This was done on 2 L nasal cannula. Net improvement in hypoxia and hypercapnia. Will continue the CPAP. Increased IV Solu-Medrol to 40 mg daily. Stop Rocephin. Because the cultures are negative so far she is afebrile for the last 48 hours. Waiting for the pulmonary recommendations. Came from the shelter. Probably agreed to keep her until Monday because of the slow recovery. (2) Acute encephalopathy Is this a current diagnosis for this admission?: Yes Plan: 10/17/2018-patient's confusion and altered mental status may be secondary to hypercapnia and hypoxia. She is much more alert and oriented this morning during my examination. CT head was negative for acute changes. 10/18/2018- may be secondary to hypercapnia/hypoxia. Resolved. Patient alert and awake communicating very well. 2017-acute and coagulopathy at the time of admission may be secondary to hypoxia and hypercapnia. Patient alert and awake communicating very well since yesterday. In my opinion acute encephalopathy resolved. CT head was negative for acute changes. (3) Pyuria Is this a current diagnosis for this admission?: Yes Plan: 10/17/2018 patient is getting ceftriaxone and vancomycin because urinalysis shows large leukocyte esterase. Urine cultures are pending. BLOOD Cultures are also pending. 10/18/2018-patient is on ceftriaxone and vancomycin. Urinalysis shows large leukocyte esterase. The urine cultures are pending. Blood cultures are negative so far. We will continue the present management. Abnormal E8 may be secondary to colonization. 10/19/2018 urine culture shows yeast. Started on Diflucan. Discontinued IV ceftriaxone. She is afebrile for the last 24 hours to 48 hours. 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 I am going to check her hemoglobin A1c. High blood sugars may be secondary to IV Solu-Medrol she is getting. Patient is on glimepiride 4 mg every 12 hours, Lantus 50 units every 12 hours. She is also on sliding scale before meals and at bedtime. 10/18/2018-latest blood sugars are in 300s. Hemoglobin A1c is 6.4. She is getting IV Solu-Medrol 40 mg every 8 hours. Changed to every 12. Presently she is on glimepiride 4 mg every 12 hours Lantus 40 units every 12 hours. She is also on sliding scale before meals at bedtime. Continue the present management. 2017 latest blood sugars are 284. Patient is on Solu-Medrol 40 mg IV every 12 hours for this. I decreased the Solu-Medrol dose to once a day. May be to show improvement in blood sugars. Hemoglobin A1c 6.4. She is on glimepiride 2 mg twice a day and Lantus 40 subcu twice a day. I am going to increase the Lantus to 50 twice a day. Is also on insulin sliding scale before meals and at bedtime. (5) Morbid obesity with BMI of 50.0-59.9, adult Is this a current diagnosis for this admission?: Yes Plan: 10/17/2018-diet exercise weight loss was advised. Dietary consult was requested. manager strategic alliances consult was requested. 10/18/2018 patient's BMI is more than 50. Diet exercise weight loss was requested. Dietary consult was requested. 10/19/2018 patient BMI is more than 50 again stressed importance of weight loss diet and exercise. (6) Chronic kidney disease, stage 3 Is this a current diagnosis for this admission?: Yes Plan: 10/19/2018-patient has history of chronic kidney disease may be secondary to diabetes mellitus. Admission creatinine is 1.8. Slowly improving it was 1.5 today. (7) Hypertension Qualifiers: Hypertension type: essential hypertension Qualified Code(s): I10 - Essential (primary) hypertension Is this a current diagnosis for this admission?: Yes Plan: 10/19/2018-since latest blood pressure is 170/77. She is on Coreg 12.5 mg p.o. twice daily, Lasix 80 mg p.o. twice daily., amlodepine 10 mg p.o. daily and metoprolol 200 mg p.o. daily. Could add lisinopril 10 mg p.o. daily. Denies any headaches. denies chest pains. - Time Time Spent with patient: 15-24 minutes Medications reviewed and adjusted accordingly: Yes Anticipated discharge: SNF
[2018-10-19] MEDS: FENOFIBRATE NANOCRYSTALLIZED 48 MG TABLET PO SCH (18:05)
[2018-10-19] MEDS: MAGNESIUM OXIDE 400 MG TABLET PO SCH (18:05)
[2018-10-19] MEDS: INSULIN GLARGINE,HUM.REC.ANLOG 1,000 UNIT/10 ML UNIT SUBCUT SCH (18:05)
[2018-10-19] MEDS: ALLOPURINOL 100 MG TABLET PO SCH (18:05)
[2018-10-19] MEDS: PHENOL/SODIUM PHENOLATE 100 SPRAY/177 ML BOTTLE PO PRN (18:14)
[2018-10-19] MEDS: TRAZODONE HCL 50 MG TABLET PO SCH (21:53)
[2018-10-19] MEDS: ATORVASTATIN CALCIUM 20 MG TABLET PO SCH (21:54)
[2018-10-19] MEDS: CLOBETASOL PROPIONATE 0.05% TOPICAL SOLN 25 ML TOP SCH (21:57)
[2018-10-19] MEDS: CEFTRIAXONE SODIUM 1,000 MG in DEXTROSE 5%-WATER 50 ML IV SCH (23:42)
[2018-10-20] MEDS: LEVALBUTEROL HCL NEB 1.25 MG/3 ML AMPUL NEB SCH ×3 (00:24→16:06)
[2018-10-20] MEDS: IPRATROPIUM BROMIDE 0.02% NEB 0.5 MG/2.5 ML AMPUL NEB SCH ×3 (00:24→16:06)
[2018-10-20] MEDS ORDERED: METHYLPREDNISOLONE INJ 40 MG/1 ML SDV IV SCH (06:00)
[2018-10-20 06:24] LABS: ABSOLUTE LYMPHOCYTES (AUTO) 2.3 10^3/uL (0.5-4.7); ABSOLUTE MONOCYTES (AUTO) 1.5 10^3/uL (0.1-1.4); BASOPHILS % (AUTO) 0.5 % (0-2); EOSINOPHILS % (AUTO) 0.1 % (0-6); HEMATOCRIT 32.6 % (36.0-47.0); MEAN CORPUSCULAR HEMOGLOBIN 30.8 pg (27.0-33.4); MEAN CORPUSCULAR HGB CONC 33.7 g/dL (32.0-36.0); MEAN CORPUSCULAR VOLUME 91 fl (80-97); PLATELET COUNT 178 10^3/uL (150-450); RED BLOOD COUNT 3.58 10^6/uL (3.72-5.28); RED CELL DISTRIBUTION WIDTH 13.7 % (11.5-14.0); SEGMENTED NEUTROPHILS % (AUTO) 56.4 % (42-78); TOTAL CELLS COUNTED % (AUTO) 100 %; WHITE BLOOD COUNT 8.8 10^3/uL (4.0-10.5)
[2018-10-20] MEDS: PREGABALIN 100 MG CAPSULE PO SCH ×3 (06:29→21:08)
[2018-10-20] MEDS: HEPARIN SOD (PORCINE) 5,000 UNIT/ML 1 ML SYRINGE SUBCUT SCH ×3 (06:29→21:08)
[2018-10-20] MEDS: LEVOTHYROXINE SODIUM 0.088 MG TABLET PO SCH (06:29)
[2018-10-20 06:47] LABS: ANION GAP 5 (5-19); BLOOD UREA NITROGEN 55 mg/dL (7-20); CALCIUM 9.8 mg/dL (8.4-10.2); CHLORIDE 96 mmol/L (98-107); POTASSIUM 3.5 mmol/L (3.6-5.0); SODIUM 140.5 mmol/L (137-145)
[2018-10-20 06:55] LABS: GLUCOSE 235 mg/dL (75-110)
[2018-10-20 07:17] LABS: CARBON DIOXIDE 40 mmol/L (22-30)
[2018-10-20] MEDS: FLUTICASONE NASAL SPRAY 50 MCG/SPRY 120 SPRAY/16 GM NASL SCH (08:08)
[2018-10-20] MEDS: CETIRIZINE 10 MG TABLET PO SCH (08:08)
[2018-10-20] MEDS: DOCUSATE SODIUM 100 MG CAPSULE PO SCH (08:08)
[2018-10-20] MEDS: INSULIN REG, HUMAN 100 UNIT/ML 3 ML VIAL (PYX) SUBCUT PRN ×4 (08:08→21:39)
[2018-10-20] MEDS: SODIUM CHLORIDE NASAL SPRAY 44 ML NASL SCH ×4 (08:08→21:10)
[2018-10-20] MEDS: BUDESONIDE NEB 0.5 MG/2 ML AMPUL NEB SCH ×2 (08:30→20:05)
[2018-10-20] MEDS: FAMOTIDINE 20 MG TABLET PO SCH ×2 (09:49→21:08)
[2018-10-20] MEDS: METOPROLOL SUCCINATE 50 MG TAB.SR.24H PO SCH (09:50)
[2018-10-20] MEDS: MAGNESIUM OXIDE 400 MG TABLET PO SCH ×2 (09:50→17:34)
[2018-10-20] MEDS: AMLODIPINE BESYLATE 10 MG TABLET PO SCH (09:50)
[2018-10-20] MEDS: FUROSEMIDE 80 MG TABLET PO SCH ×2 (09:51→17:34)
[2018-10-20] MEDS: FERROUS SULFATE 325 MG TABLET PO SCH (09:51)
[2018-10-20] MEDS: ASPIRIN 81 MG TABLET, ENT COATED PO SCH (09:51)
[2018-10-20] MEDS: CHOLECALCIFEROL (D3) 1,000 UNIT TABLET PO SCH (09:51)
[2018-10-20] MEDS: LISINOPRIL 10 MG TABLET PO SCH (09:51)
[2018-10-20] MEDS: GLIMEPIRIDE 4 MG TABLET PO SCH ×2 (09:52→21:09)
[2018-10-20] MEDS: CARVEDILOL 12.5 MG TABLET PO SCH ×2 (09:52→21:09)
[2018-10-20] MEDS: FLUCONAZOLE 100 MG TABLET PO SCH (09:52)
[2018-10-20] MEDS: INSULIN GLARGINE,HUM.REC.ANLOG 1,000 UNIT/10 ML UNIT SUBCUT SCH ×2 (09:59→17:34)
--- NOTE | 2018-10-20 11:52 | PDOC PROGRESS REPORT ---
Subjective Progress Note for:: 10/20/18 Subjective:: 10/17/[id number]-foxc-old female came to the emergency room with complaints of generalized malaise, weakness, confusion and disorientation and fatigue. She is also complaining of shortness of breath and feeling of restlessness. She has history of previous episodes secondary to COPD exacerbation. In the ER she was hypoxic and hypercapnic. And admitted for acute on chronic respiratory failure requiring BiPAP. Patient is not comfortable with the BiPAP she wants to switch back to CPAP which she is using at home. Other than that no complaints. Comfortably in the bed. 10/18/2018-patient is comfortably sleeping in bed denies any complaints she wants to sleep more. Acute events in the last 24 hours. To communicate with me very well. Was told me patient is using CPAP on and off. 10/19/2018-patient is communicating very well. She says she is feeling much better today. She is able to tolerate the CPAP all night last night. No acute events in the last 24 hours. 10/20/2018 patient says she is having the coughing spells dry mouth whenever she coughs her chest hurts especially lungs hurts she wants something for cough from something for pain. Other than that she says she is doing well. Afebrile. Pulse ox is 95% on 2 L. Reason For Visit: ACUTE ON CHRONIC RESPIRATORY FAILURE, HYPERCAPNIA Physical Exam Vital Signs: Temp Pulse Resp BP Pulse Ox 98.0 F 71 18 122/50 L 95 10/20/18 07:00 10/20/18 08:30 10/20/18 08:30 10/20/18 07:00 10/20/18 08:30 Intake & Output 10/19/18 10/20/18 10/21/18 06:59 06:59 06:59 Intake Total 2410 3075 Balance 2410 3075 Weight 134.6 kg 134.1 kg General appearance: PRESENT: mild distress Head exam: PRESENT: atraumatic Eye exam: PRESENT: PERRLA Mouth exam: PRESENT: dry mucosa Neck exam: ABSENT: carotid bruit, JVD, lymphadenopathy, thyromegaly Respiratory exam: PRESENT: decreased breath sounds, prolonged expiratory phas Cardiovascular exam: PRESENT: RRR. ABSENT: diastolic murmur, rubs, systolic murmur GI/Abdominal exam: PRESENT: normal bowel sounds, soft. ABSENT: distended, guarding, mass, organolmegaly, rebound, tenderness Extremities exam: PRESENT: full ROM. ABSENT: calf tenderness, clubbing, pedal edema Neurological exam: PRESENT: alert, awake, oriented to person, oriented to place , oriented to time, oriented to situation, CN II-XII grossly intact. ABSENT: motor sensory deficit Results Laboratory Results: 10/20/18 05:20 10/20/18 05:20 10/20/18 10/20/18 05:20 05:20 WBC 8.8 RBC 3.58 L Hgb 11.0 L Hct 32.6 L MCV 91 MCH 30.8 MCHC 33.7 RDW 13.7 Plt Count 178 Seg Neutrophils % 56.4 Lymphocytes % 26.0 Monocytes % 17.0 H Eosinophils % 0.1 Basophils % 0.5 Absolute Neutrophils 5.0 Absolute Lymphocytes 2.3 Absolute Monocytes 1.5 H Absolute Eosinophils 0.0 Absolute Basophils 0.0 Sodium 140.5 Potassium 3.5 L Chloride 96 L Carbon Dioxide 40 H* Anion Gap 5 BUN 55 H Creatinine 1.36 H Est GFR ( Amer) 47 L Est GFR (Non-Af Amer) 39 L Glucose 235 H Calcium 9.8 Magnesium 1.5 L Impressions: Head CT 10/16/18 21:57 IMPRESSION: Age-appropriate atrophy with minor small vessel ischemic change. Mucosal thickening of the ethmoid air cells and left sphenoid sinus. TECHNICAL DOCUMENTATION: Quality ID # 436: Final reports with documentation of one or more dose reduction techniques (e.g., Automated exposure control, adjustment of the mA and/or kV according to patient size, use of iterative reconstruction technique) copyright 2010 [email or web address]- All Rights Reserved Chest X-Ray 10/16/18 21:58 IMPRESSION: Cardiomegaly. Lungs are clear copyright 2010 [email or web address]- All Rights Reserved Assessment & Plan - Diagnosis (1) Acute on chronic respiratory failure Qualifiers: Respiratory failure complication: hypercapnia Qualified Code(s): J96.22 - Acute and chronic respiratory failure with hypercapnia Is this a current diagnosis for this admission?: Yes Plan: 10/17/2018-patient with history of severe COPD and multiple hospitalizations admitted for acute on chronic hypoxic, hypercapnic respiratory failure. Requiring BiPAP. Patient requesting to change BiPAP or CPAP. Patient's latest ABG pH is 7.35/PCO2 65/PO2 80/bicarb is 35. She still have significant CO2 retention. She is getting IV Solu-Medrol 80 mg every 8 hours and nebulizations as needed. She is presently on albuterol nebs every hour as needed and Xopenex every 8 hours scheduled. I am going to change albuterol to every 6 as needed. Chest x-ray did not show any pneumonia. I am going to request for pulmonary consult. I am going to arrange for daily ABGs. 10/18/2018-ABG was done today pH is 7.42/PCO2 58/PO2 69 bicarb is 37. Hypercapnia is resolving. Will continue the daily ABG check. Patient is presently on IV Solu-Medrol 40 mg every 8 hours I am going to change it to every 12. She is getting nebulizations albuterol every 6 as needed and Xopenex every 8 scheduled. Pulmonary consult was requested. Patient is using CPAP. We will continue the present management. 10/19/2018 the ABG done today pH is 7.47 PCO2 50 PO2 84 bicarb is 35 oxygen saturation is 96.8%. This was done on 2 L nasal cannula. Net improvement in hypoxia and hypercapnia. Will continue the CPAP. Increased IV Solu-Medrol to 40 mg daily. Stop Rocephin. Because the cultures are negative so far she is afebrile for the last 48 hours. Waiting for the pulmonary recommendations. Came from the half-way. Probably agreed to keep her until Monday because of the slow recovery. 10/20/2018-pulse ox is 95% on 2 L. She is using the CPAP at night. Decrease IV Solu-Medrol to 40 mg every 12 hours. Ultrasound negative so far. We will continue Xopenex every 8 hours, albuterol nebulizations every 4 hours as needed. (2) Acute encephalopathy Is this a current diagnosis for this admission?: Yes Plan: 10/17/2018-patient's confusion and altered mental status may be secondary to hypercapnia and hypoxia. She is much more alert and oriented this morning during my examination. CT head was negative for acute changes. 10/18/2018- may be secondary to hypercapnia/hypoxia. Resolved. Patient alert and awake communicating very well. -acute and coagulopathy at the time of admission may be secondary to hypoxia and hypercapnia. Patient alert and awake communicating very well since yesterday. In my opinion acute encephalopathy resolved. CT head was negative for acute changes. 10/20/2018 acute encephalopathy resolved. It most likely secondary to hypoxia and hypercapnia. Is communicating very well. No signs of confusion. (3) Pyuria Is this a current diagnosis for this admission?: Yes Plan: 10/17/2018 patient is getting ceftriaxone and vancomycin because urinalysis shows large leukocyte esterase. Urine cultures are pending. BLOOD Cultures are also pending. 10/18/2018-patient is on ceftriaxone and vancomycin. Urinalysis shows large leukocyte esterase. The urine cultures are pending. Blood cultures are negative so far. We will continue the present management. Abnormal E8 may be secondary to colonization. 10/19/2018 urine culture shows yeast. Started on Diflucan. Discontinued IV ceftriaxone. She is afebrile for the last 24 hours to 48 hours. 10/20/2018 urine culture shows yeast she is on fluconazole. Afebrile. 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 I am going to check her hemoglobin A1c. High blood sugars may be secondary to IV Solu-Medrol she is getting. Patient is on glimepiride 4 mg every 12 hours, Lantus 50 units every 12 hours. She is also on sliding scale before meals and at bedtime. 10/18/2018-latest blood sugars are in 300s. Hemoglobin A1c is 6.4. She is getting IV Solu-Medrol 40 mg every 8 hours. Changed to every 12. Presently she is on glimepiride 4 mg every 12 hours Lantus 40 units every 12 hours. She is also on sliding scale before meals at bedtime. Continue the present management. 2017 latest blood sugars are 284. Patient is on Solu-Medrol 40 mg IV every 12 hours for this. I decreased the Solu-Medrol dose to once a day. May be to show improvement in blood sugars. Hemoglobin A1c 6.4. She is on glimepiride 2 mg twice a day and Lantus 40 subcu twice a day. I am going to increase the Lantus to 50 twice a day. Is also on insulin sliding scale before meals and at bedtime. 10/20/2018 latest blood sugars are 235. On IV Solu-Medrol 40 mg every 6 hours. I decreased to every 12 hours. Hemoglobin was 6.4. We will continue glimepiride 2 mg twice a day and Lantus was increased to 50 units twice a day yesterday. (5) Morbid obesity with BMI of 50.0-59.9, adult Is this a current diagnosis for this admission?: Yes Plan: 10/17/2018-diet exercise weight loss was advised. Dietary consult was requested. perioperative educator consult was requested. 10/18/2018 patient's BMI is more than 50. Diet exercise weight loss was requested. Dietary consult was requested. 10/19/2018 patient BMI is more than 50 again stressed importance of weight loss diet and exercise. 10/20/2018-BMI is more than 50 again diet and exercise was advised. (6) Chronic kidney disease, stage 3 Is this a current diagnosis for this admission?: Yes Plan: 10/19/2018-patient has history of chronic kidney disease may be secondary to diabetes mellitus. Admission creatinine is 1.8. Slowly improving it was 1.5 today. 10/20/2018 patient has history of chronic kidney disease secondary to diabetes mellitus. The creatinine is slowly but surely is improving it is 1.36 today. (7) Hypertension Qualifiers: Hypertension type: essential hypertension Qualified Code(s): I10 - Essential (primary) hypertension Is this a current diagnosis for this admission?: Yes Plan: 10/19/2018-since latest blood pressure is 170/77. She is on Coreg 12.5 mg p.o. twice daily, Lasix 80 mg p.o. twice daily., amlodepine 10 mg p.o. daily and metoprolol 200 mg p.o. daily. Could add lisinopril 10 mg p.o. daily. Denies any headaches. denies chest pains. 10/20/2018 blood pressures are better today 122/80. Pulse rate 71. She is on Coreg 12.5 mg twice a day Lasix 80 mg twice a day amlodipine 10 mg daily metoprolol 200 mg p.o. daily, lisinopril 10 mg p.o. added yesterday. Continue with present management. - Time Time Spent with patient: 15-24 minutes Medications reviewed and adjusted accordingly: Yes Anticipated discharge: SNF
[2018-10-20] MEDS: HYDROCODONE/ACETAMINOPHEN 10-325 MG TABLET PO PRN (12:24)
[2018-10-20] MEDS: ALLOPURINOL 100 MG TABLET PO SCH (17:34)
[2018-10-20] MEDS: FENOFIBRATE NANOCRYSTALLIZED 48 MG TABLET PO SCH (17:34)
[2018-10-20] MEDS: ALBUTEROL SULFATE 0.042% NEB (1.25 MG/3 ML) AMPUL NEB PRN (20:05)
[2018-10-20] MEDS: ATORVASTATIN CALCIUM 20 MG TABLET PO SCH (21:08)
[2018-10-20] MEDS: GUAIFENESIN 600 MG TABLET.SA PO SCH (21:09)
[2018-10-20] MEDS: TRAZODONE HCL 50 MG TABLET PO SCH (21:10)
[2018-10-20] MEDS: METHYLPREDNISOLONE INJ 40 MG/1 ML SDV IV SCH (21:11)
[2018-10-20] MEDS: CLOBETASOL PROPIONATE 0.05% TOPICAL SOLN 25 ML TOP SCH (21:11)
[2018-10-21] MEDS: LEVALBUTEROL HCL NEB 1.25 MG/3 ML AMPUL NEB SCH ×3 (00:30→16:24)
[2018-10-21] MEDS: IPRATROPIUM BROMIDE 0.02% NEB 0.5 MG/2.5 ML AMPUL NEB SCH ×3 (00:30→16:24)
[2018-10-21] MEDS: LEVOTHYROXINE SODIUM 0.088 MG TABLET PO SCH (05:18)
[2018-10-21] MEDS: PREGABALIN 100 MG CAPSULE PO SCH ×3 (05:19→22:01)
[2018-10-21] MEDS: HEPARIN SOD (PORCINE) 5,000 UNIT/ML 1 ML SYRINGE SUBCUT SCH ×3 (05:19→22:02)
[2018-10-21] MEDS: HYDROCODONE/ACETAMINOPHEN 10-325 MG TABLET PO PRN ×3 (05:25→22:00)
[2018-10-21 06:51] LABS: ABSOLUTE LYMPHOCYTES (AUTO) 1.1 10^3/uL (0.5-4.7); ABSOLUTE MONOCYTES (AUTO) 0.5 10^3/uL (0.1-1.4); ABSOLUTE NEUT (AUTO) 6.2 10^3/uL (1.7-8.2); BASOPHILS % (AUTO) 0.2 % (0-2); HEMATOCRIT 35.2 % (36.0-47.0); HEMOGLOBIN 11.9 g/dL (12.0-15.5); MEAN CORPUSCULAR HEMOGLOBIN 30.7 pg (27.0-33.4); MEAN CORPUSCULAR HGB CONC 33.9 g/dL (32.0-36.0); MEAN CORPUSCULAR VOLUME 91 fl (80-97); MONOCYTES % (AUTO) 6.7 % (3-13); PLATELET COUNT 185 10^3/uL (150-450); RED BLOOD COUNT 3.88 10^6/uL (3.72-5.28); RED CELL DISTRIBUTION WIDTH 13.8 % (11.5-14.0); SEGMENTED NEUTROPHILS % (AUTO) 79.1 % (42-78); TOTAL CELLS COUNTED % (AUTO) 100 %; WHITE BLOOD COUNT 7.9 10^3/uL (4.0-10.5)
[2018-10-21 07:13] LABS: ALANINE AMINOTRANSFERASE 20 U/L (9-52); ALBUMIN 3.4 g/dL (3.5-5.0); ALKALINE PHOSPHATASE 88 U/L (38-126); ASPARTATE AMINO TRANSFERASE 13 U/L (14-36); BILIRUBIN,DIRECT 0.3 mg/dL (0.0-0.4); BILIRUBIN,TOTAL 0.4 mg/dL (0.2-1.3); BLOOD UREA NITROGEN 60 mg/dL (7-20); CALCIUM 9.8 mg/dL (8.4-10.2); CHLORIDE 95 mmol/L (98-107); GLUCOSE 339 mg/dL (75-110); POTASSIUM 4.2 mmol/L (3.6-5.0); SODIUM 142.3 mmol/L (137-145); TOTAL PROTEIN 6.3 g/dL (6.3-8.2)
[2018-10-21 07:22] LABS: ANION GAP 5 (5-19)
[2018-10-21 07:23] LABS: CARBON DIOXIDE 42 mmol/L (22-30)
[2018-10-21] MEDS: CETIRIZINE 10 MG TABLET PO SCH (07:55)
[2018-10-21] MEDS: SODIUM CHLORIDE NASAL SPRAY 44 ML NASL SCH ×4 (07:55→22:37)
[2018-10-21] MEDS: DOCUSATE SODIUM 100 MG CAPSULE PO SCH (07:55)
[2018-10-21] MEDS: FLUTICASONE NASAL SPRAY 50 MCG/SPRY 120 SPRAY/16 GM NASL SCH (07:55)
[2018-10-21] MEDS: INSULIN REG, HUMAN 100 UNIT/ML 3 ML VIAL (PYX) SUBCUT PRN ×4 (07:56→22:10)
[2018-10-21] MEDS: BUDESONIDE NEB 0.5 MG/2 ML AMPUL NEB SCH ×2 (08:39→19:58)
[2018-10-21] MEDS: FAMOTIDINE 20 MG TABLET PO SCH ×2 (09:45→22:36)
[2018-10-21] MEDS: GUAIFENESIN 600 MG TABLET.SA PO SCH ×2 (09:45→22:02)
[2018-10-21] MEDS: METOPROLOL SUCCINATE 50 MG TAB.SR.24H PO SCH (09:46)
[2018-10-21] MEDS: FERROUS SULFATE 325 MG TABLET PO SCH (09:46)
[2018-10-21] MEDS: GLIMEPIRIDE 4 MG TABLET PO SCH ×2 (09:46→22:01)
[2018-10-21] MEDS: ASPIRIN 81 MG TABLET, ENT COATED PO SCH (09:47)
[2018-10-21] MEDS: CHOLECALCIFEROL (D3) 1,000 UNIT TABLET PO SCH (09:47)
[2018-10-21] MEDS: FLUCONAZOLE 100 MG TABLET PO SCH (09:47)
[2018-10-21] MEDS: CARVEDILOL 12.5 MG TABLET PO SCH ×2 (09:48→22:01)
[2018-10-21] MEDS: MAGNESIUM OXIDE 400 MG TABLET PO SCH ×2 (09:48→17:28)
[2018-10-21] MEDS: LISINOPRIL 10 MG TABLET PO SCH (09:48)
[2018-10-21] MEDS: FUROSEMIDE 80 MG TABLET PO SCH ×2 (09:48→17:28)
[2018-10-21] MEDS: AMLODIPINE BESYLATE 10 MG TABLET PO SCH (09:48)
[2018-10-21] MEDS: METHYLPREDNISOLONE INJ 40 MG/1 ML SDV IV SCH (09:49)
[2018-10-21] MEDS: INSULIN GLARGINE,HUM.REC.ANLOG 1,000 UNIT/10 ML UNIT SUBCUT SCH ×2 (09:49→17:29)
--- NOTE | 2018-10-21 12:17 | PDOC PROGRESS REPORT ---
Subjective Progress Note for:: 10/21/18 Subjective:: 10/17/[id number]-thel-old female came to the emergency room with complaints of generalized malaise, weakness, confusion and disorientation and fatigue. She is also complaining of shortness of breath and feeling of restlessness. She has history of previous episodes secondary to COPD exacerbation. In the ER she was hypoxic and hypercapnic. And admitted for acute on chronic respiratory failure requiring BiPAP. Patient is not comfortable with the BiPAP she wants to switch back to CPAP which she is using at home. Other than that no complaints. Comfortably in the bed. 10/18/2018-patient is comfortably sleeping in bed denies any complaints she wants to sleep more. Acute events in the last 24 hours. To communicate with me very well. Was told me patient is using CPAP on and off. 10/19/2018-patient is communicating very well. She says she is feeling much better today. She is able to tolerate the CPAP all night last night. No acute events in the last 24 hours. 10/20/2018 patient says she is having the coughing spells dry mouth whenever she coughs her chest hurts especially lungs hurts she wants something for cough from something for pain. Other than that she says she is doing well. Afebrile. Pulse ox is 95% on 2 L. 10/21/2018-patient states her cough is much better. She is also complaining of minimal pain and says [place] that was started is helping her. No acute events in the last 24 hours. She is afebrile. Blood pressures are stable. The only issue is the blood sugars are running high I increased the Lantus to 55 units twice a day, decrease the Solu-Medrol to 40 mg once a day. And she is continued to be on a sliding scale. We are going to closely monitor the blood sugars. Reason For Visit: ACUTE ON CHRONIC RESPIRATORY FAILURE, HYPERCAPNIA Physical Exam Vital Signs: Temp Pulse Resp BP Pulse Ox 97.9 F 71 17 145/60 H 99 10/21/18 07:27 10/21/18 08:39 10/21/18 08:39 10/21/18 07:27 10/21/18 08:39 Intake & Output 10/20/18 10/21/18 10/22/18 06:59 06:59 06:59 Intake Total 3075 887 Output Total 0 Balance 3075 887 Weight 134.1 kg 134.4 kg General appearance: PRESENT: no acute distress Head exam: PRESENT: atraumatic Mouth exam: PRESENT: moist Neck exam: ABSENT: carotid bruit, JVD, lymphadenopathy, thyromegaly Respiratory exam: PRESENT: decreased breath sounds Cardiovascular exam: PRESENT: RRR. ABSENT: diastolic murmur, rubs, systolic murmur GI/Abdominal exam: PRESENT: normal bowel sounds, soft. ABSENT: tenderness Neurological exam: PRESENT: alert, awake, oriented to person, oriented to place , oriented to time, oriented to situation, CN II-XII grossly intact. ABSENT: motor sensory deficit Psychiatric exam: PRESENT: appropriate affect, normal mood. ABSENT: homicidal ideation, suicidal ideation Results Laboratory Results: 10/21/18 05:20 10/21/18 05:20 10/21/18 10/21/18 05:20 05:20 WBC 7.9 RBC 3.88 Hgb 11.9 L Hct 35.2 L MCV 91 MCH 30.7 MCHC 33.9 RDW 13.8 Plt Count 185 Seg Neutrophils % 79.1 H Lymphocytes % 14.0 Monocytes % 6.7 Eosinophils % 0.0 Basophils % 0.2 Absolute Neutrophils 6.2 Absolute Lymphocytes 1.1 Absolute Monocytes 0.5 Absolute Eosinophils 0.0 Absolute Basophils 0.0 Sodium 142.3 Potassium 4.2 Chloride 95 L Carbon Dioxide 42 H* Anion Gap 5 BUN 60 H Creatinine 1.52 H Est GFR ( Amer) 41 L Est GFR (Non-Af Amer) 34 L Glucose 339 H Calcium 9.8 Magnesium 1.8 Total Bilirubin 0.4 AST 13 L ALT 20 Alkaline Phosphatase 88 Total Protein 6.3 Albumin 3.4 L Impressions: Head CT 10/16/18 21:57 IMPRESSION: Age-appropriate atrophy with minor small vessel ischemic change. Mucosal thickening of the ethmoid air cells and left sphenoid sinus. TECHNICAL DOCUMENTATION: Quality ID # 436: Final reports with documentation of one or more dose reduction techniques (e.g., Automated exposure control, adjustment of the mA and/or kV according to patient size, use of iterative reconstruction technique) copyright 2011 [employer]- All Rights Reserved Chest X-Ray 10/16/18 21:58 IMPRESSION: Cardiomegaly. Lungs are clear copyright 2010 [employer]- All Rights Reserved Assessment & Plan - Diagnosis (1) Acute on chronic respiratory failure Qualifiers: Respiratory failure complication: hypercapnia Qualified Code(s): J96.22 - Acute and chronic respiratory failure with hypercapnia Is this a current diagnosis for this admission?: Yes Plan: 10/17/2018-patient with history of severe COPD and multiple hospitalizations admitted for acute on chronic hypoxic, hypercapnic respiratory failure. Requiring BiPAP. Patient requesting to change BiPAP or CPAP. Patient's latest ABG pH is 7.35/PCO2 65/PO2 80/bicarb is 35. She still have significant CO2 retention. She is getting IV Solu-Medrol 80 mg every 8 hours and nebulizations as needed. She is presently on albuterol nebs every hour as needed and Xopenex every 8 hours scheduled. I am going to change albuterol to every 6 as needed. Chest x-ray did not show any pneumonia. I am going to request for pulmonary consult. I am going to arrange for daily ABGs. 10/18/2018-ABG was done today pH is 7.42/PCO2 58/PO2 69 bicarb is 37. Hypercapnia is resolving. Will continue the daily ABG check. Patient is presently on IV Solu-Medrol 40 mg every 8 hours I am going to change it to every 12. She is getting nebulizations albuterol every 6 as needed and Xopenex every 8 scheduled. Pulmonary consult was requested. Patient is using CPAP. We will continue the present management. 10/19/2018 the ABG done today pH is 7.47 PCO2 50 PO2 84 bicarb is 35 oxygen saturation is 96.8%. This was done on 2 L nasal cannula. Net improvement in hypoxia and hypercapnia. Will continue the CPAP. Increased IV Solu-Medrol to 40 mg daily. Stop Rocephin. Because the cultures are negative so far she is afebrile for the last 48 hours. Waiting for the pulmonary recommendations. Came from the shelter. Probably agreed to keep her until Monday because of the slow recovery. 10/20/2018-pulse ox is 95% on 2 L. She is using the CPAP at night. Decrease IV Solu-Medrol to 40 mg every 12 hours. cultures so far. We will continue Xopenex every 8 hours, albuterol nebulizations every 4 hours as needed. 10/21/2018-patient's pulse ox is 99% on 3 L. His CPAP at night. Is getting albuterol nebulizations, Xopenex nebulizations, IV Solu-Medrol daily. The cultures are negative so far. Urine shows she has a little bit of yeast. She is on Diflucan. We will continue the present management. (2) Acute encephalopathy Is this a current diagnosis for this admission?: Yes Plan: 10/17/2018-patient's confusion and altered mental status may be secondary to hypercapnia and hypoxia. She is much more alert and oriented this morning during my examination. CT head was negative for acute changes. 10/18/2018- may be secondary to hypercapnia/hypoxia. Resolved. Patient alert and awake communicating very well. -acute and coagulopathy at the time of admission may be secondary to hypoxia and hypercapnia. Patient alert and awake communicating very well since yesterday. In my opinion acute encephalopathy resolved. CT head was negative for acute changes. 10/20/2018 acute encephalopathy resolved. It most likely secondary to hypoxia and hypercapnia. Is communicating very well. No signs of confusion. 10/21/2018 patient is alert oriented communicating very well. Acute encephalopathy resolved. (3) Pyuria Is this a current diagnosis for this admission?: Yes Plan: 10/17/2018 patient is getting ceftriaxone and vancomycin because urinalysis shows large leukocyte esterase. Urine cultures are pending. BLOOD Cultures are also pending. 10/18/2018-patient is on ceftriaxone and vancomycin. Urinalysis shows large leukocyte esterase. The urine cultures are pending. Blood cultures are negative so far. We will continue the present management. Abnormal E8 may be secondary to colonization. 10/19/2018 urine culture shows yeast. Started on Diflucan. Discontinued IV ceftriaxone. She is afebrile for the last 24 hours to 48 hours. 10/20/2018 urine culture shows yeast she is on fluconazole. Afebrile. 10/21/2018 plan to continue the present management. 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 I am going to check her hemoglobin A1c. High blood sugars may be secondary to IV Solu-Medrol she is getting. Patient is on glimepiride 4 mg every 12 hours, Lantus 50 units every 12 hours. She is also on sliding scale before meals and at bedtime. 10/18/2018-latest blood sugars are in 300s. Hemoglobin A1c is 6.4. She is getting IV Solu-Medrol 40 mg every 8 hours. Changed to every 12. Presently she is on glimepiride 4 mg every 12 hours Lantus 40 units every 12 hours. She is also on sliding scale before meals at bedtime. Continue the present management. 2017 latest blood sugars are 284. Patient is on Solu-Medrol 40 mg IV every 12 hours for this. I decreased the Solu-Medrol dose to once a day. May be to show improvement in blood sugars. Hemoglobin A1c 6.4. She is on glimepiride 2 mg twice a day and Lantus 40 subcu twice a day. I am going to increase the Lantus to 50 twice a day. Is also on insulin sliding scale before meals and at bedtime. 10/20/2018 latest blood sugars are 235. On IV Solu-Medrol 40 mg every 6 hours. I decreased to every 12 hours. Hemoglobin was 6.4. We will continue glimepiride 2 mg twice a day and Lantus was increased to 50 units twice a day yesterday. 10/21/2018 latest blood sugars are more than 400. We are going to cover with 12 units of regular insulin. Increase the Lantus from 50 twice a day to 55 twice daily. Hemoglobin A1c of 6.4. We will continue glimepiride 2 mg p.o. twice a day Lantus 55 units twice a day. I will adjust medications tomorrow again. (5) Morbid obesity with BMI of 50.0-59.9, adult Is this a current diagnosis for this admission?: Yes Plan: 10/17/2018-diet exercise weight loss was advised. Dietary consult was requested. paraeducator consult was requested. 10/18/2018 patient's BMI is more than 50. Diet exercise weight loss was requested. Dietary consult was requested. 10/19/2018 patient BMI is more than 50 again stressed importance of weight loss diet and exercise. 10/20/2018-BMI is more than 50 again diet and exercise was advised. (6) Chronic kidney disease, stage 3 Is this a current diagnosis for this admission?: Yes Plan: 10/19/2018-patient has history of chronic kidney disease may be secondary to diabetes mellitus. Admission creatinine is 1.8. Slowly improving it was 1.5 today. 10/20/2018 patient has history of chronic kidney disease secondary to diabetes mellitus. The creatinine is slowly but surely is improving it is 1.36 today. 10/21/2018 patient has history of chronic kidney disease secondary to diabetes mellitus. Latest creatinine is 1.52. Stable. (7) Hypertension Qualifiers: Hypertension type: essential hypertension Qualified Code(s): I10 - Essential (primary) hypertension Is this a current diagnosis for this admission?: Yes Plan: 10/19/2018-since latest blood pressure is 170/77. She is on Coreg 12.5 mg p.o. twice daily, Lasix 80 mg p.o. twice daily., amlodepine 10 mg p.o. daily and metoprolol 200 mg p.o. daily. Could add lisinopril 10 mg p.o. daily. Denies any headaches. denies chest pains. 10/20/2018 blood pressures are better today 122/80. Pulse rate 71. She is on Coreg 12.5 mg twice a day Lasix 80 mg twice a day amlodipine 10 mg daily metoprolol 200 mg p.o. daily, lisinopril 10 mg p.o. added yesterday. Continue with present management. 10/21/2018 patient's blood pressure today is 1 4560. Pulse rate is 71. On Coreg 12.5 mg p.o. twice a day, Lasix 80 mg twice a day, amlodipine 10 mg daily , metoprolol 200 mg p.o. daily, lisinopril was added yesterday. - Time Time Spent with patient: Less than 15 minutes Medications reviewed and adjusted accordingly: Yes Anticipated discharge: SNF
[2018-10-21] MEDS: FENOFIBRATE NANOCRYSTALLIZED 48 MG TABLET PO SCH (17:28)
[2018-10-21] MEDS: ALLOPURINOL 100 MG TABLET PO SCH (17:28)
[2018-10-21] MEDS ORDERED: INSULIN GLARGINE,HUM.REC.ANLOG 1,000 UNIT/10 ML UNIT SUBCUT SCH (18:00)
[2018-10-21] MEDS: ALBUTEROL SULFATE 0.042% NEB (1.25 MG/3 ML) AMPUL NEB PRN (19:58)
[2018-10-21] MEDS: ATORVASTATIN CALCIUM 20 MG TABLET PO SCH (22:00)
[2018-10-21] MEDS: TRAZODONE HCL 50 MG TABLET PO SCH (22:01)
[2018-10-21] MEDS: CLOBETASOL PROPIONATE 0.05% TOPICAL SOLN 25 ML TOP SCH (22:39)
[2018-10-22] MEDS: IPRATROPIUM BROMIDE 0.02% NEB 0.5 MG/2.5 ML AMPUL NEB SCH ×3 (00:22→16:22)
[2018-10-22] MEDS: LEVALBUTEROL HCL NEB 1.25 MG/3 ML AMPUL NEB SCH ×3 (00:22→16:22)
[2018-10-22 06:09] LABS: ALANINE AMINOTRANSFERASE 20 U/L (9-52); ALBUMIN 3.3 g/dL (3.5-5.0); ALKALINE PHOSPHATASE 86 U/L (38-126); ASPARTATE AMINO TRANSFERASE 18 U/L (14-36); BILIRUBIN,DIRECT 0.2 mg/dL (0.0-0.4); BILIRUBIN,TOTAL 0.3 mg/dL (0.2-1.3); BLOOD UREA NITROGEN 68 mg/dL (7-20); CALCIUM 9.7 mg/dL (8.4-10.2); CHLORIDE 92 mmol/L (98-107); GLUCOSE 322 mg/dL (75-110); POTASSIUM 4.1 mmol/L (3.6-5.0); SODIUM 138.5 mmol/L (137-145); TOTAL PROTEIN 6.1 g/dL (6.3-8.2)
[2018-10-22 06:12] LABS: HEMATOCRIT 35.1 % (36.0-47.0); HEMOGLOBIN 11.5 g/dL (12.0-15.5); MEAN CORPUSCULAR HGB CONC 32.8 g/dL (32.0-36.0); MEAN CORPUSCULAR VOLUME 92 fl (80-97); PLATELET COUNT 175 10^3/uL (150-450); RED BLOOD COUNT 3.83 10^6/uL (3.72-5.28); RED CELL DISTRIBUTION WIDTH 13.8 % (11.5-14.0); WHITE BLOOD COUNT 11.6 10^3/uL (4.0-10.5)
[2018-10-22] MEDS: PREGABALIN 100 MG CAPSULE PO SCH ×3 (06:14→22:03)
[2018-10-22] MEDS: LEVOTHYROXINE SODIUM 0.088 MG TABLET PO SCH (06:14)
[2018-10-22] MEDS: HEPARIN SOD (PORCINE) 5,000 UNIT/ML 1 ML SYRINGE SUBCUT SCH ×3 (06:15→22:01)
[2018-10-22 06:19] LABS: ANION GAP 5 (5-19)
[2018-10-22 06:23] LABS: CARBON DIOXIDE 42 mmol/L (22-30)
[2018-10-22 06:36] LABS: ABSOLUTE LYMPHOCYTES# (MANUAL) 1.9 10^3/uL (0.5-4.7); ABSOLUTE MONOCYTES # (MANUAL) 1.3 10^3/uL (0.1-1.4); ABSOLUTE NEUTROPHILS# (MANUAL) 8.5 10^3/uL (1.7-8.2); BAND NEUTROPHILS % (MANUAL) 2 % (3-5); BASOPHILS % (MANUAL) 0 % (0-2); EOSINOPHILS % (MANUAL) 0 % (0-6); LYMPHOCYTES % (MANUAL) 16 % (13-45); MONOCYTES % (MANUAL) 11 % (3-13); PLATELET COMMENT ADEQUATE; POIKILOCYTOSIS SLIGHT; SEGMENTED NEUTROPHILS % (MAN) 71 % (42-78); STOMATOCYTES SLIGHT; TOTAL CELLS COUNTED 100
[2018-10-22] MEDS: DOCUSATE SODIUM 100 MG CAPSULE PO SCH (07:39)
[2018-10-22] MEDS: CETIRIZINE 10 MG TABLET PO SCH (07:39)
[2018-10-22] MEDS: PHENOL/SODIUM PHENOLATE 100 SPRAY/177 ML BOTTLE PO PRN (07:41)
[2018-10-22] MEDS: FLUTICASONE NASAL SPRAY 50 MCG/SPRY 120 SPRAY/16 GM NASL SCH (07:46)
[2018-10-22] MEDS: INSULIN REG, HUMAN 100 UNIT/ML 3 ML VIAL (PYX) SUBCUT PRN ×4 (07:46→22:03)
[2018-10-22] MEDS: SODIUM CHLORIDE NASAL SPRAY 44 ML NASL SCH ×4 (07:51→22:03)
[2018-10-22] MEDS: BUDESONIDE NEB 0.5 MG/2 ML AMPUL NEB SCH ×2 (08:00→20:46)
--- NOTE | 2018-10-22 09:52 | PDOC CONSULTATION ---
Consultation Consult Date: 10/19/18 Attending physician:: LARA PAGE Consult reason:: Respiratory failure acute on chronic History of Present Illness Admission Date/PCP: 10/17/18 01:49 RAO PAGE MD History of Present Illness: LORETO JOSHI is a 68 year old female, presented to the's of breath cough sees had a long history of O2 dependence secondary to COPD and now is displaying some hypercapnic respiratory failure as well she states that at home ([facility]) she is maintained on BiPAP. Positive cough is dry nonproductive nausea no vomiting fever no chills [place] legs no chest pain sleeps on 2 pillows and she smoked 1/2-1 pack a day for 40 years. Her hypercapnia can be a result of her end-stage lung disease as well as a possible obesity hypoventilation Past Medical History Cardiac Medical History: Reports: Atrial Fibrillation - Paroxysmal, Congestive Heart Failure, Coronary Artery Disease, Myocardial Infarction, Hyperlipidema, Hypertension Denies: DVT, Pulmonary Embolism Pulmonary Medical History: Reports: Chronic Obstructive Pulmonary Disease (COPD) , Pneumonia, Sleep Apnea Denies: Asthma, Bronchitis EENT Medical History: Reports: None Neurological Medical History: Reports: Ischemic CVA Denies: Migraine, Seizures Endocrine Medical History: Reports: Diabetes Mellitus Type 2, Hypothyroidism Denies: Diabetes Mellitus Type 1, Hyperthyroidism Renal/ Medical History: Reports: Chronic Kidney Disease, End Stage Renal Disease Denies: Nephrolithiasis Malignancy Medical History: Reports: Cervical Cancer GI Medical History: Denies: Cirrhosis, Hepatitis Musculoskeltal Medical History: Reports: Arthritis, Gout Skin Medical History: Denies: Eczema, Psoriasis Psychiatric Medical History: Reports: Depression Denies: Alcohol Dependency, Substance Abuse, Tobacco Dependency Traumatic Medical History: Reports: None Hematology: Reports: Anemia Denies: Bleeding Tendencies Infectious Medical History: Reports: Clostridium Difficile - History of severe persistent C. difficile while in [place] and underwent fec Past Surgical History Past Surgical History: Reports: Appendectomy, Section, Cholecystectomy , Herniorrhaphy, Other - Breast cyst, history of fecal transplant for C. difficile Denies: Hysterectomy Social History Information Source: Patient, [facility] Records Lives with: Longterm Smoking Status: Former Smoker Passive smoke exposure as: Both Frequency of Alcohol Use: None Hx Recreational Drug Use: No Drugs: None Hx Prescription Drug Abuse: No Do you have pets?: No Have you had any respiratory illnesses as a child?: No Have you been exposed to any sick contacts recently?: Yes Have you had any recent respiratory illnesses?: Yes Have you travelled outside of [place] in the past 12 months?: No - Advance Directive Resuscitation Status: Full Code Family History Family History: CAD, DM, Hypertension Parental Family History Reviewed: Yes Children Family History Reviewed: Yes Sibling(s) Family History Reviewed.: Yes Medication/Allergy Home Medications: Allopurinol [Zyloprim 100 mg Tablet] 100 mg PO QPM 10/17/18 Amlodipine Besylate [Norvasc 10 mg Tablet] 10 mg PO QAM 10/17/18 Atorvastatin Calcium [Lipitor 20 mg Tablet] 20 mg PO QHS 10/17/18 Carvedilol [Coreg 12.5 mg Tablet] 12.5 mg PO Q12 10/17/18 Cetirizine HCl [Zyrtec 10 mg Tablet] 10 mg PO QAM 10/17/18 Cholecalciferol (Vitamin D3) [Vitamin D3 5000 unit Capsule] 5,000 unit PO QAM Clobetasol Propionate [Temovate Solution] 1 applic TOP QHS MDD SCALP & EAR LOBES 10/17/18 Cran/Vitc/Mannose/Fos/Bromeln [Uti-Stat Liquid] 30 ml PO QAM 10/17/18 Docusate Sodium [Colace 100 mg Capsule] 100 mg PO QAM 10/17/18 Fenofibrate 54mg 54 mg PO QPM 10/17/18 Fluticasone Propionate [Flonase Nasal [place] 50 Mcg/[place] 16 gm] 2 spray NASL QAM 10/17/18 Furosemide [Lasix 80 mg Tablet] 80 mg PO BID 10/17/18 Glimepiride [Amaryl 4 mg Tablet] 4 mg PO Q12 10/17/18 Insulin Glargine,Hum.rec.anlog [Lantus Insulin 100 Unit/mL] 40 units SQ Q12 10/23 Insulin Lispro [Humalog Insulin (Lispro) 100 unit/mL] 0 units SQ .PERSLIDINGSCALE 10/17/18 Levothyroxine Sodium 88 mcg PO Q6AM 10/17/18 Lifitegrast [Xiidra] 1 drop OU BID 10/17/18 Nitrofurantoin Macrocrystal [Nitrofurantoin] 100 mg PO [id number] MDD LAST DOSE ON 10/20/18 10/17/18 Ondansetron HCl [Zofran 4 mg Tablet] 4 mg PO Q8HP PRN 10/17/18 Phenol [Chloraseptic] 2 sprays PO BIDP PRN 10/17/18 Pimecrolimus [Elidel] 1 applic TOP BID MDD FACE & EARS FOR FLAKY SKIN 10/17/18 Potassium Chloride [K-Tab ER] 20 meq PO BID 10/17/18 Pregabalin [Lyrica 100 mg Capsule] 100 mg PO Q8 10/17/18 Ranitidine HCl [Zantac 150 mg Tablet] 150 mg PO BID 10/17/18 Sodium Chloride [Saline Mist] 1 spray NASL ACHS 10/17/18 Tramadol HCl [Ultram 50 mg Tablet] 50 mg PO Q4HP PRN 10/17/18 Trazodone HCl [Desyrel 50 mg Tablet] 25 mg PO QHS 10/17/18 Allergies/Adverse Reactions: No Known Allergies Allergy (Verified 03/15/18 15:04) Review of Systems Constitutional: ABSENT: headache(s), night sweats Eyes: ABSENT: visual disturbances Ears: ABSENT: hearing changes Nose, Mouth, and Throat: ABSENT: mouth pain Cardiovascular: PRESENT: dyspnea on exertion, edema, orthropnea. ABSENT: palpitations Respiratory: PRESENT: cough, dyspnea. ABSENT: hemoptysis Gastrointestinal: ABSENT: abdominal pain, bloating, coffee ground emesis, dysphagia, hematemesis, melena Genitourinary: ABSENT: dysuria, hematuria Integumentary: ABSENT: pruritus, rash Neurological: ABSENT: abnormal gait, abnormal movements, abnormal speech, focal weakness, frequent falls, lack of coordination, memory loss Psychiatric: ABSENT: hallucinations, homidical ideation, suicidal ideation Endocrine: ABSENT: cold intolerance, heat intolerance, polydipsia, polyphagia Hematologic/Lymphatic: ABSENT: lymphadenopathy Allergic/Immunologic: ABSENT: seasonal rhinorrhea Physical Exam Vital Signs: Temp Pulse Resp BP Pulse Ox 98.1 F 83 20 170/77 H 99 10/19/18 07:42 10/19/18 07:42 10/19/18 07:42 10/19/18 07:42 10/19/18 07:42 Intake & Output 10/18/18 10/19/18 10/20/18 06:59 06:59 06:59 Intake Total 3408 2410 Balance 3408 2410 Weight 132.2 kg 134.6 kg General appearance: PRESENT: no acute distress, cooperative, disheveled, morbidly obese Head exam: PRESENT: atraumatic, normocephalic Eye exam: PRESENT: conjunctiva pale, EOMI. ABSENT: nystagmus, scleral icterus Mouth exam: PRESENT: dry mucosa, neck supple, tongue midline Neck exam: ABSENT: carotid bruit, JVD, lymphadenopathy, thyromegaly, tracheal deviation, tracheostomy Respiratory exam: PRESENT: decreased breath sounds, prolonged expiratory phas, rales, rhonchi, unlabored. ABSENT: retraction, stridor, tachypnea Cardiovascular exam: PRESENT: irregular rhythm Pulses: PRESENT: normal radial pulses GI/Abdominal exam: PRESENT: soft. ABSENT: tenderness Extremities exam: PRESENT: pedal edema. ABSENT: calf tenderness, clubbing, joint swelling Musculoskeletal exam: ABSENT: deformity, dislocation Neurological exam: PRESENT: alert, awake Psychiatric exam: PRESENT: appropriate affect Skin exam: PRESENT: dry, warm Results Laboratory Results: 10/19/18 04:50 10/19/18 04:50 10/19/18 10/19/18 10/19/18 04:50 04:50 06:15 WBC 8.8 RBC 3.42 L Hgb 10.7 L Hct 31.5 L MCV 92 MCH 31.2 MCHC 33.9 RDW 13.9 Plt Count 207 Seg Neutrophils % 74.7 Lymphocytes % 14.5 Monocytes % 10.7 Eosinophils % 0.0 Basophils % 0.1 Absolute Neutrophils 6.6 Absolute Lymphocytes 1.3 Absolute Monocytes 0.9 Absolute Eosinophils 0.0 Absolute Basophils 0.0 Carbonic Acid 1.51 H HCO3/H2CO3 Ratio 23:1 ABG pH 7.47 H ABG pCO2 50.3 H ABG pO2 84.8 ABG HCO3 35.7 H ABG O2 Saturation 96.8 ABG Base Excess 10.5 FiO2 2L Sodium 145.1 H Potassium 3.5 L Chloride 99 Carbon Dioxide 39 H Anion Gap 7 BUN 47 H Creatinine 1.50 H Est GFR ( Amer) 42 L Est GFR (Non-Af Amer) 34 L Glucose 299 H Calcium 9.8 Magnesium 1.5 L Impressions: Head CT 10/16/18 21:57 IMPRESSION: Age-appropriate atrophy with minor small vessel ischemic change. Mucosal thickening of the ethmoid air cells and left sphenoid sinus. TECHNICAL DOCUMENTATION: Quality ID # [id number]: Final reports with documentation of one or more dose reduction techniques (e.g., Automated exposure control, adjustment of the mA and/or kV according to patient size, use of iterative reconstruction technique) copyright 2010 [employer]- All Rights Reserved Chest X-Ray 10/16/18 21:58 IMPRESSION: Cardiomegaly. Lungs are clear copyright 2010 [employer]- All Rights Reserved Assessment & Plan - Diagnosis (1) Acute on chronic respiratory failure Qualifiers: Respiratory failure complication: hypercapnia Qualified Code(s): J96.22 - Acute and chronic respiratory failure with hypercapnia Is this a current diagnosis for this admission?: Yes Plan: Toxemic hypercapnic may use CPAP/BiPAP from home (2) Diabetes mellitus type 2 in obese Is this a current diagnosis for this admission?: Yes Plan: A1c 6.4 (3) Anemia in chronic kidney disease (CKD) Qualifiers: Chronic kidney disease stage: stage 4 (severe) Qualified Code(s): N18.4 - Chronic kidney disease, stage 4 (severe); D63.1 - Anemia in chronic kidney disease; D63.1 - Anemia in chronic kidney disease Is this a current diagnosis for this admission?: Yes Plan: Nephrology, consult pre-dialysis
[2018-10-22] MEDS: MAGNESIUM OXIDE 400 MG TABLET PO SCH ×2 (10:00→17:22)
[2018-10-22] MEDS ORDERED: METHYLPREDNISOLONE INJ 40 MG/1 ML SDV IV SCH (10:00)
[2018-10-22] MEDS: CHOLECALCIFEROL (D3) 1,000 UNIT TABLET PO SCH (10:01)
[2018-10-22] MEDS: AMLODIPINE BESYLATE 10 MG TABLET PO SCH (10:01)
[2018-10-22] MEDS: METOPROLOL SUCCINATE 50 MG TAB.SR.24H PO SCH (10:01)
[2018-10-22] MEDS: FERROUS SULFATE 325 MG TABLET PO SCH (10:01)
[2018-10-22] MEDS: ASPIRIN 81 MG TABLET, ENT COATED PO SCH (10:01)
[2018-10-22] MEDS: LISINOPRIL 10 MG TABLET PO SCH (10:01)
[2018-10-22] MEDS: FAMOTIDINE 20 MG TABLET PO SCH ×2 (10:02→22:03)
[2018-10-22] MEDS: FUROSEMIDE 80 MG TABLET PO SCH ×2 (10:02→17:22)
[2018-10-22] MEDS: FLUCONAZOLE 100 MG TABLET PO SCH (10:02)
[2018-10-22] MEDS: GLIMEPIRIDE 4 MG TABLET PO SCH ×2 (10:02→22:02)
[2018-10-22] MEDS: CARVEDILOL 12.5 MG TABLET PO SCH ×2 (10:02→22:02)
[2018-10-22] MEDS: GUAIFENESIN 600 MG TABLET.SA PO SCH ×2 (10:02→22:02)
[2018-10-22] MEDS: INSULIN GLARGINE,HUM.REC.ANLOG 1,000 UNIT/10 ML UNIT SUBCUT SCH ×2 (10:05→17:21)
[2018-10-22] MEDS: POLYETHYLENE GLYCOL 3350 POWDER 17 GM/1 PACKET PO SCH (10:06)
--- NOTE | 2018-10-22 12:45 | PDOC PROGRESS REPORT ---
Subjective Progress Note for:: 10/22/18 Subjective:: 10[birth year]17[birth year][id number]-j[age]h-old female came to the emergency room with complaints of generalized malaise, weakness, confusion and disorientation and fatigue. She is also complaining of shortness of breath and feeling of restlessness. She has history of previous episodes secondary to COPD exacerbation. In the ER she was hypoxic and hypercapnic. And admitted for acute on chronic respiratory failure requiring BiPAP. Patient is not comfortable with the BiPAP she wants to switch back to CPAP which she is using at home. Other than that no complaints. Comfortably in the bed. 10/18/2018-patient is comfortably sleeping in bed denies any complaints she wants to sleep more. Acute events in the last 24 hours. To communicate with me very well. Was told me patient is using CPAP on and off. 10/19/2018-patient is communicating very well. She says she is feeling much better today. She is able to tolerate the CPAP all night last night. No acute events in the last 24 hours. 10/20/2018 patient says she is having the coughing spells dry mouth whenever she coughs her chest hurts especially lungs hurts she wants something for cough from something for pain. Other than that she says she is doing well. Afebrile. Pulse ox is 95% on 2 L. 10/21/2018-patient states her cough is much better. She is also complaining of minimal pain and says [place] that was started is helping her. No acute events in the last 24 hours. She is afebrile. Blood pressures are stable. The only issue is the blood sugars are running high I increased the Lantus to 55 units twice a day, decrease the Solu-Medrol to 40 mg once a day. And she is continued to be on a sliding scale. We are going to closely monitor the blood sugars. 10/22/18- No acute events in the last 24 hours. sHe is alert and awake communicating well. Reason For Visit: ACUTE ON CHRONIC RESPIRATORY FAILURE, HYPERCAPNIA Physical Exam Vital Signs: Temp Pulse Resp BP Pulse Ox 98.4 F 72 17 147/63 H 100 10/22/18 12:23 10/22/18 12:23 10/22/18 12:23 10/22/18 12:23 10/22/18 12:23 Intake & Output 10/21/18 10/22/18 10/23/18 06:59 06:59 06:59 Intake Total 887 2896 474 Output Total 0 0 Balance 887 2896 474 Weight 134.4 kg 134.5 kg General appearance: PRESENT: no acute distress Head exam: PRESENT: atraumatic Eye exam: PRESENT: PERRLA Mouth exam: PRESENT: moist Neck exam: ABSENT: carotid bruit, JVD, lymphadenopathy, thyromegaly Respiratory exam: PRESENT: clear to auscultation emperatriz, decreased breath sounds. ABSENT: rales, rhonchi, wheezes Cardiovascular exam: PRESENT: RRR. ABSENT: diastolic murmur, rubs, systolic murmur GI/Abdominal exam: PRESENT: normal bowel sounds, soft. ABSENT: distended, guarding, mass, organolmegaly, rebound, tenderness Extremities exam: PRESENT: full ROM. ABSENT: calf tenderness, clubbing, pedal edema Neurological exam: PRESENT: alert, awake, oriented to person, oriented to place , oriented to time, oriented to situation, CN II-XII grossly intact. ABSENT: motor sensory deficit Psychiatric exam: PRESENT: appropriate affect, normal mood. ABSENT: homicidal ideation, suicidal ideation Results Laboratory Results: 10/22/18 05:39 10/22/18 05:39 10/22/18 10/22/18 05:39 05:39 WBC 11.6 H RBC 3.83 Hgb 11.5 L Hct 35.1 L MCV 92 MCH 30.0 MCHC 32.8 RDW 13.8 Plt Count 175 Seg Neutrophils % Not Reportable Lymphocytes % Not Reportable Monocytes % Not Reportable Eosinophils % Not Reportable Basophils % Not Reportable Absolute Neutrophils Not Reportable Absolute Lymphocytes Not Reportable Absolute Monocytes Not Reportable Absolute Eosinophils Not Reportable Absolute Basophils Not Reportable Sodium 138.5 Potassium 4.1 Chloride 92 L Carbon Dioxide 42 H* Anion Gap 5 BUN 68 H Creatinine 1.66 H Est GFR ( Amer) 37 L Est GFR (Non-Af Amer) 31 L Glucose 322 H Calcium 9.7 Magnesium 2.0 Total Bilirubin 0.3 AST 18 ALT 20 Alkaline Phosphatase 86 Total Protein 6.1 L Albumin 3.3 L 10/17/18 02:20 Blood Blood Culture - Final NO GROWTH IN 5 DAYS Impressions: Head CT 10/16/18 21:57 IMPRESSION: Age-appropriate atrophy with minor small vessel ischemic change. Mucosal thickening of the ethmoid air cells and left sphenoid sinus. TECHNICAL DOCUMENTATION: Quality ID # [id number]: Final reports with documentation of one or more dose reduction techniques (e.g., Automated exposure control, adjustment of the mA and/or kV according to patient size, use of iterative reconstruction technique) copyright 2010 [employer]- All Rights Reserved Chest X-Ray 10/16/18 21:58 IMPRESSION: Cardiomegaly. Lungs are clear copyright 2010 [employer]- All Rights Reserved Assessment & Plan - Diagnosis (1) Acute on chronic respiratory failure Qualifiers: Respiratory failure complication: hypercapnia Qualified Code(s): J96.22 - Acute and chronic respiratory failure with hypercapnia Is this a current diagnosis for this admission?: Yes Plan: 10/17/2018-patient with history of severe COPD and multiple hospitalizations admitted for acute on chronic hypoxic, hypercapnic respiratory failure. Requiring BiPAP. Patient requesting to change BiPAP or CPAP. Patient's latest ABG pH is 7.35/PCO2 65/PO2 80/bicarb is 35. She still have significant CO2 retention. She is getting IV Solu-Medrol 80 mg every 8 hours and nebulizations as needed. She is presently on albuterol nebs every hour as needed and Xopenex every 8 hours scheduled. I am going to change albuterol to every 6 as needed. Chest x-ray did not show any pneumonia. I am going to request for pulmonary consult. I am going to arrange for daily ABGs. 10/18/2018-ABG was done today pH is 7.42/PCO2 58/PO2 69 bicarb is 37. Hypercapnia is resolving. Will continue the daily ABG check. Patient is presently on IV Solu-Medrol 40 mg every 8 hours I am going to change it to every 12. She is getting nebulizations albuterol every 6 as needed and Xopenex every 8 scheduled. Pulmonary consult was requested. Patient is using CPAP. We will continue the present management. 10/19/2018 the ABG done today pH is 7.47 PCO2 50 PO2 84 bicarb is 35 oxygen saturation is 96.8%. This was done on 2 L nasal cannula. Net improvement in hypoxia and hypercapnia. Will continue the CPAP. Increased IV Solu-Medrol to 40 mg daily. Stop Rocephin. Because the cultures are negative so far she is afebrile for the last 48 hours. Waiting for the pulmonary recommendations. Came from the assisted. Probably agreed to keep her until Monday because of the slow recovery. 10/20/2018-pulse ox is 95% on 2 L. She is using the CPAP at night. Decrease IV Solu-Medrol to 40 mg every 12 hours. cultures so far. We will continue Xopenex every 8 hours, albuterol nebulizations every 4 hours as needed. 10/21/2018-patient's pulse ox is 99% on 3 L. His CPAP at night. Is getting albuterol nebulizations, Xopenex nebulizations, IV Solu-Medrol daily. The cultures are negative so far. Urine shows she has a little bit of yeast. She is on Diflucan. We will continue the present management. 10/22/2018-socks today on 3 L is 97%. She is on CPAP at night. No hypoxic episodes in the last 24 hours. I discontinued IV Solu-Medrol, started on prednisone 10 mg twice a day. Cultures are negative. (2) Acute encephalopathy Is this a current diagnosis for this admission?: Yes Plan: 10/17/2018-patient's confusion and altered mental status may be secondary to hypercapnia and hypoxia. She is much more alert and oriented this morning during my examination. CT head was negative for acute changes. 10/18/2018- may be secondary to hypercapnia/hypoxia. Resolved. Patient alert and awake communicating very well. -acute and coagulopathy at the time of admission may be secondary to hypoxia and hypercapnia. Patient alert and awake communicating very well since yesterday. In my opinion acute encephalopathy resolved. CT head was negative for acute changes. 10/20/2018 acute encephalopathy resolved. It most likely secondary to hypoxia and hypercapnia. Is communicating very well. No signs of confusion. 10/21/2018 patient is alert oriented communicating very well. Acute encephalopathy resolved. 2017 acute encephalopathy resolved .patient is alert and oriented communicating very well. (3) Pyuria Is this a current diagnosis for this admission?: Yes (4) Diabetes mellitus, type II Qualifiers: Diabetes mellitus senior care insulin use: unspecified senior care insulin use status Diabetes mellitus complication detail: with nephropathy Is this a current diagnosis for this admission?: Yes Plan: 10/17/2018-patient history of type 2 diabetes mellitus her blood sugar this morning is 201. I am going to check her hemoglobin A1c. High blood sugars may be secondary to IV Solu-Medrol she is getting. Patient is on glimepiride 4 mg every 12 hours, Lantus 50 units every 12 hours. She is also on sliding scale before meals and at bedtime. 10/18/2018-latest blood sugars are in 300s. Hemoglobin A1c is 6.4. She is getting IV Solu-Medrol 40 mg every 8 hours. Changed to every 12. Presently she is on glimepiride 4 mg every 12 hours Lantus 40 units every 12 hours. She is also on sliding scale before meals at bedtime. Continue the present management. 2017 latest blood sugars are 284. Patient is on Solu-Medrol 40 mg IV every 12 hours for this. I decreased the Solu-Medrol dose to once a day. May be to show improvement in blood sugars. Hemoglobin A1c 6.4. She is on glimepiride 2 mg twice a day and Lantus 40 subcu twice a day. I am going to increase the Lantus to 50 twice a day. Is also on insulin sliding scale before meals and at bedtime. 10/20/2018 latest blood sugars are 235. On IV Solu-Medrol 40 mg every 6 hours. I decreased to every 12 hours. Hemoglobin was 6.4. We will continue glimepiride 2 mg twice a day and Lantus was increased to 50 units twice a day yesterday. 10/21/2018 latest blood sugars are more than 400. We are going to cover with 12 units of regular insulin. Increase the Lantus from 50 twice a day to 55 twice daily. Hemoglobin A1c of 6.4. We will continue glimepiride 2 mg p.o. twice a day Lantus 55 units twice a day. I will adjust medications tomorrow again. 10/22/2018 patient blood sugars are 275. Plan is to increase the Lantus to 60 units twice a day. And to continue the sliding scale. She is already on glimepiride 2 mg twice a day. Hemoglobin A1c 6.4. (5) Morbid obesity with BMI of 50.0-59.9, adult Is this a current diagnosis for this admission?: Yes (6) Chronic kidney disease, stage 3 Is this a current diagnosis for this admission?: Yes Plan: 10/19/2018-patient has history of chronic kidney disease may be secondary to diabetes mellitus. Admission creatinine is 1.8. Slowly improving it was 1.5 today. 10/20/2018 patient has history of chronic kidney disease secondary to diabetes mellitus. The creatinine is slowly but surely is improving it is 1.36 today. 10/21/2018 patient has history of chronic kidney disease secondary to diabetes mellitus. Latest creatinine is 1.52. Stable. 2017 chronic kidney disease most likely secondary to diabetes mellitus. Latest creatinine is 1.66. (7) Hypertension Qualifiers: Hypertension type: essential hypertension Qualified Code(s): I10 - Essential (primary) hypertension Is this a current diagnosis for this admission?: Yes Plan: 10/19/2018-since latest blood pressure is 170/77. She is on Coreg 12.5 mg p.o. twice daily, Lasix 80 mg p.o. twice daily., amlodepine 10 mg p.o. daily and metoprolol 200 mg p.o. daily. Could add lisinopril 10 mg p.o. daily. Denies any headaches. denies chest pains. 10/20/2018 blood pressures are better today 122/80. Pulse rate 71. She is on Coreg 12.5 mg twice a day Lasix 80 mg twice a day amlodipine 10 mg daily metoprolol 200 mg p.o. daily, lisinopril 10 mg p.o. added yesterday. Continue with present management. 10/21/2018 patient's blood pressure today is 145/60. Pulse rate is 71. On Coreg 12.5 mg p.o. twice a day, Lasix 80 mg twice a day, amlodipine 10 mg daily , metoprolol 200 mg p.o. daily, lisinopril was added yesterday. 10/22/2018 patient blood pressure today is 136/52. Well controlled. We will continue the present management. - Time Time Spent with patient: 15-24 minutes Medications reviewed and adjusted accordingly: Yes Anticipated discharge: SNF
[2018-10-22] MEDS ORDERED: INSULIN GLARGINE,HUM.REC.ANLOG 1,000 UNIT/10 ML UNIT SUBCUT ONE (16:53)
[2018-10-22] MEDS: PREDNISONE 10 MG TABLET PO SCH (17:22)
[2018-10-22] MEDS: FENOFIBRATE NANOCRYSTALLIZED 48 MG TABLET PO SCH (17:22)
[2018-10-22] MEDS: ALLOPURINOL 100 MG TABLET PO SCH (17:22)
[2018-10-22] MEDS: HYDROCODONE/ACETAMINOPHEN 10-325 MG TABLET PO PRN (20:26)
[2018-10-22] MEDS: ATORVASTATIN CALCIUM 20 MG TABLET PO SCH (22:02)
[2018-10-22] MEDS: TRAZODONE HCL 50 MG TABLET PO SCH (22:05)
[2018-10-22] MEDS: CLOBETASOL PROPIONATE 0.05% TOPICAL SOLN 25 ML TOP SCH (22:43)
[2018-10-23] MEDS: IPRATROPIUM BROMIDE 0.02% NEB 0.5 MG/2.5 ML AMPUL NEB SCH ×3 (00:41→16:54)
[2018-10-23] MEDS: LEVALBUTEROL HCL NEB 1.25 MG/3 ML AMPUL NEB SCH ×3 (00:41→16:54)
[2018-10-23] MEDS: LEVOTHYROXINE SODIUM 0.088 MG TABLET PO SCH (05:30)
[2018-10-23] MEDS: PREGABALIN 100 MG CAPSULE PO SCH ×3 (05:30→22:15)
[2018-10-23] MEDS: HEPARIN SOD (PORCINE) 5,000 UNIT/ML 1 ML SYRINGE SUBCUT SCH ×3 (05:30→22:17)
[2018-10-23] MEDS: HYDROCODONE/ACETAMINOPHEN 10-325 MG TABLET PO PRN (05:33)
[2018-10-23] MEDS: DOCUSATE SODIUM 100 MG CAPSULE PO SCH (07:28)
[2018-10-23] MEDS: CETIRIZINE 10 MG TABLET PO SCH (07:28)
[2018-10-23] MEDS: FLUTICASONE NASAL SPRAY 50 MCG/SPRY 120 SPRAY/16 GM NASL SCH (07:29)
[2018-10-23] MEDS: SODIUM CHLORIDE NASAL SPRAY 44 ML NASL SCH ×4 (07:30→22:16)
[2018-10-23] MEDS: INSULIN REG, HUMAN 100 UNIT/ML 3 ML VIAL (PYX) SUBCUT PRN ×4 (07:30→22:16)
[2018-10-23] MEDS: BUDESONIDE NEB 0.5 MG/2 ML AMPUL NEB SCH ×2 (09:13→20:18)
[2018-10-23] MEDS: AMLODIPINE BESYLATE 10 MG TABLET PO SCH (10:08)
[2018-10-23] MEDS: CHOLECALCIFEROL (D3) 1,000 UNIT TABLET PO SCH (10:08)
[2018-10-23] MEDS: GUAIFENESIN 600 MG TABLET.SA PO SCH ×2 (10:09→22:16)
[2018-10-23] MEDS: FAMOTIDINE 20 MG TABLET PO SCH ×2 (10:09→22:15)
[2018-10-23] MEDS: MAGNESIUM OXIDE 400 MG TABLET PO SCH ×2 (10:09→17:31)
[2018-10-23] MEDS: GLIMEPIRIDE 4 MG TABLET PO SCH ×2 (10:09→10:15)
[2018-10-23] MEDS: LISINOPRIL 10 MG TABLET PO SCH (10:09)
[2018-10-23] MEDS: FUROSEMIDE 80 MG TABLET PO SCH (10:09)
[2018-10-23] MEDS: FERROUS SULFATE 325 MG TABLET PO SCH (10:09)
[2018-10-23] MEDS: INSULIN GLARGINE,HUM.REC.ANLOG 1,000 UNIT/10 ML UNIT SUBCUT SCH ×2 (10:10→17:31)
[2018-10-23] MEDS: PREDNISONE 10 MG TABLET PO SCH ×2 (10:10→17:31)
[2018-10-23] MEDS: ASPIRIN 81 MG TABLET, ENT COATED PO SCH (10:10)
[2018-10-23] MEDS: POLYETHYLENE GLYCOL 3350 POWDER 17 GM/1 PACKET PO SCH (10:17)
[2018-10-23] MEDS: FLUCONAZOLE 100 MG TABLET PO SCH (10:17)
[2018-10-23] MEDS: METOPROLOL SUCCINATE 50 MG TAB.SR.24H PO SCH (10:28)
[2018-10-23] MEDS: CARVEDILOL 12.5 MG TABLET PO SCH (10:28)
[2018-10-23 11:51] LABS: HEMATOCRIT 33.7 % (36.0-47.0); HEMOGLOBIN 11.1 g/dL (12.0-15.5); MEAN CORPUSCULAR HEMOGLOBIN 30.4 pg (27.0-33.4); MEAN CORPUSCULAR VOLUME 92 fl (80-97); PLATELET COUNT 196 10^3/uL (150-450); RED BLOOD COUNT 3.66 10^6/uL (3.72-5.28)
[2018-10-23 12:09] LABS: BLOOD UREA NITROGEN 82 mg/dL (7-20); CALCIUM 9.9 mg/dL (8.4-10.2); CHLORIDE 89 mmol/L (98-107); GLUCOSE 273 mg/dL (75-110); POTASSIUM 4.8 mmol/L (3.6-5.0)
[2018-10-23 12:26] LABS: ANION GAP 4 (5-19)
[2018-10-23 12:34] LABS: SODIUM 132.8 mmol/L (137-145)
[2018-10-23 12:47] LABS: CARBON DIOXIDE 40 mmol/L (22-30)
[2018-10-23] MEDS: FENOFIBRATE NANOCRYSTALLIZED 48 MG TABLET PO SCH (17:31)
[2018-10-23] MEDS: ALLOPURINOL 100 MG TABLET PO SCH (17:31)
--- NOTE | 2018-10-23 17:54 | PDOC PROGRESS REPORT ---
Subjective Progress Note for:: 10/23/18 Subjective:: The patient is a 68-year-old female with a past medical history of PAF, CHF, CAD, [place], HTN, HLD, COPD who is home O2 dependent, GUDELIA, ischemic CVA, DM, hypothyroidism, CKD, arthritis, and depression who was admitted on 10/17/18 for acute on chronic respiratory failure with hypoxia and hypercapnia and acute encephalopathy. The patient was seen on morning rounds. She was found resting in bed comfortably on supplemental oxygen via nasal cannula at 3.5 L/min. The patient reports that her only complaint today is fatigue, however, when the proposal for discharge to [facility] where she is an established resident was brought up, the patient became highly anxious; stating that she did not feel that her respiratory status has improved enough for her to return to SNF. She reports numerous concerns regarding her increased oxygen requirement (currently on 3.5 l pm compared to her baseline of 2 L/min). She denies dyspnea at present, orthopnea, cough, chest pain, palpitations. She further denies fever, chills, headache, dizziness, abdominal pain, nausea vomiting and diarrhea. She has no other questions or concerns at this time. No concerns per nursing. Reason For Visit: ACUTE ON CHRONIC RESPIRATORY FAILURE, HYPERCAPNIA Physical Exam Vital Signs: Temp Pulse Resp BP Pulse Ox 97.5 F 28 L 17 128/57 H 92 10/23/18 16:03 10/23/18 16:03 10/23/18 16:03 10/23/18 16:03 10/23/18 16:03 Intake & Output 10/22/18 10/23/18 10/24/18 06:59 06:59 06:59 Intake Total 2896 952 Output Total 0 Balance 2896 952 Weight 134.5 kg 135 kg General appearance: PRESENT: no acute distress, cooperative, morbidly obese, well-developed, well-nourished Head exam: PRESENT: atraumatic, normocephalic Eye exam: PRESENT: conjunctiva pink, EOMI, PERRLA. ABSENT: scleral icterus Ear exam: PRESENT: normal external ear exam Mouth exam: PRESENT: moist, tongue midline Neck exam: ABSENT: carotid bruit, JVD, lymphadenopathy, thyromegaly Respiratory exam: PRESENT: clear to auscultation emperatriz, decreased breath sounds - Bibasilar, prolonged expiratory phas, symmetrical, unlabored, other - Supplemental oxygen by nasal cannula. ABSENT: rales, rhonchi, wheezes Cardiovascular exam: PRESENT: RRR. ABSENT: diastolic murmur, rubs, systolic murmur Pulses: PRESENT: normal dorsalis pedis pul Vascular exam: PRESENT: normal capillary refill GI/Abdominal exam: PRESENT: normal bowel sounds, soft. ABSENT: distended, guarding, mass, organolmegaly, rebound, tenderness Rectal exam: PRESENT: deferred Extremities exam: PRESENT: full ROM. ABSENT: calf tenderness, clubbing, pedal edema Neurological exam: PRESENT: alert, awake, oriented to person, oriented to place, oriented to time, oriented to situation, CN II-XII grossly intact. ABSENT: motor sensory deficit Psychiatric exam: PRESENT: anxious, appropriate affect, normal mood. ABSENT: homicidal ideation, suicidal ideation Skin exam: PRESENT: dry, intact, warm. ABSENT: cyanosis, rash Results Laboratory Results: 10/23/18 11:35 10/23/18 11:35 10/23/18 10/23/18 11:35 11:35 WBC 12.0 H RBC 3.66 L Hgb 11.1 L Hct 33.7 L MCV 92 MCH 30.4 MCHC 33.0 RDW 14.0 Plt Count 196 Sodium 132.8 L Potassium 4.8 Chloride 89 L Carbon Dioxide 40 H* Anion Gap 4 L BUN 82 H Creatinine 2.08 H Est GFR ( Amer) 29 L Est GFR (Non-Af Amer) 24 L Glucose 273 H Calcium 9.9 Impressions: Head CT 10/16/18 21:57 IMPRESSION: Age-appropriate atrophy with minor small vessel ischemic change. Mucosal thickening of the ethmoid air cells and left sphenoid sinus. TECHNICAL DOCUMENTATION: Quality ID # 436: Final reports with documentation of one or more dose reduction techniques (e.g., Automated exposure control, adjustment of the mA and/or kV according to patient size, use of iterative reconstruction technique) copyright 2010 [employer]- All Rights Reserved Chest X-Ray 10/16/18 21:58 IMPRESSION: Cardiomegaly. Lungs are clear copyright 2010 [employer]- All Rights Reserved Assessment & Plan - Diagnosis (1) Acute respiratory failure with hypoxia and hypercarbia Is this a current diagnosis for this admission?: Yes Plan: Improved. Acute exacerbation has resolved; she is no longer hypoxic. Most recent ABG demonstrated PCO2 of 50.3; this appears to be her baseline as the patient does have end-stage COPD. The patient was admitted to [facility] on continuous cardiac telemetry. She is provided supplemental oxygen as needed to maintain oxygen saturations gr eater than 89%. She currently requires 3.5 L/min while awake; she is home O2 dependent at a baseline of 2 L/min. Initially the patient required BiPAP; this has been weaned to CPAP. The patient does utilize CPAP machine at home when well. She was initially placed on IV Solu-Medrol; this is been weaned to p.o. prednisone 10 mg twice daily. She continues to receive scheduled and as needed nebulizer treatments. Mucinex twice daily. Incentive spirometer and flutter valve to bedside. (2) Acute encephalopathy Is this a current diagnosis for this admission?: Yes Plan: Resolved; altered mental status was secondary to hypercapnia and hypoxia. The patient was admitted with a PCO2 of 82; baseline of 50. Head CT was negative for acute changes. Management of chronic respiratory failure as above. Avoid sedating medications as able. Fall and safety precautions in place. (3) Diabetes mellitus type 2 in obese Is this a current diagnosis for this admission?: Yes Plan: A1c of 6.4%. She is placed on a consistent carb diet with Accu-Cheks before meals and at bedtime. Continue Lantus 60 units twice daily with Humalog for sliding scale coverage. Continue her home dose of glimepiride. The registered dietitian and community educator's are consulted. (4) CKD (chronic kidney disease) stage 4, GFR 15-29 ml/min Is this a current diagnosis for this admission?: Yes Plan: Baseline creatinine of 1.9, BUN 40s, eGFR 30s. The patient was admitted with a creatinine of 1.88; this improved to 1.36, however has returned to 2.08 which is not unusual for the patient when reviewing historic labs. However, her BUN is elevated to 82 today which is a significant departure from her average. This is likely secondary to aggressive diuretic use. We will avoid nephrotoxic medications as able. Holding Lasix. Encourage p.o. fluids. Repeat chemistry in the a.m. Consider nephrology consultation; patient would benefit from establishing with nephrology for outpatient follow-up. (5) COPD (chronic obstructive pulmonary disease) Qualifiers: COPD type: unspecified COPD Qualified Code(s): J44.9 - Chronic obstructive pulmonary disease, unspecified Is this a current diagnosis for this admission?: Yes Plan: COPD exacerbation has resolved; management as above. (6) Hypertension Qualifiers: Hypertension type: essential hypertension Qualified Code(s): I10 - Essential (primary) hypertension Is this a current diagnosis for this admission?: Yes Plan: Now normotensive. Cardiac diet. Daily weights with strict I&O's. Continue Amlodipine 10 mg daily, carvedilol 25 mg twice daily, and lisinopril 10 mg daily. Holding Lasix secondary to elevated BUN. (7) Pyuria Is this a current diagnosis for this admission?: Yes Plan: Secondary to colonized Jamee. Patient denies UTI symptoms. Patient did receive Diflucan 100 mg x3. - Time Time Spent with patient: 35 or more minutes Medications reviewed and adjusted accordingly: Yes Anticipated discharge: [facility] Within: within 48 hours
[2018-10-23] MEDS: TRAZODONE HCL 50 MG TABLET PO SCH (22:16)
[2018-10-23] MEDS: ATORVASTATIN CALCIUM 20 MG TABLET PO SCH (22:16)
[2018-10-23] MEDS: CLOBETASOL PROPIONATE 0.05% TOPICAL SOLN 25 ML TOP SCH (22:23)
[2018-10-24] MEDS: IPRATROPIUM BROMIDE 0.02% NEB 0.5 MG/2.5 ML AMPUL NEB SCH ×4 (00:45→23:37)
[2018-10-24] MEDS: LEVALBUTEROL HCL NEB 1.25 MG/3 ML AMPUL NEB SCH ×4 (00:45→23:37)
[2018-10-24] MEDS: HEPARIN SOD (PORCINE) 5,000 UNIT/ML 1 ML SYRINGE SUBCUT SCH ×3 (06:47→21:16)
[2018-10-24] MEDS: LEVOTHYROXINE SODIUM 0.088 MG TABLET PO SCH (06:47)
[2018-10-24] MEDS: PREGABALIN 100 MG CAPSULE PO SCH ×3 (06:47→21:16)
[2018-10-24 06:56] LABS: HEMATOCRIT 33.2 % (36.0-47.0); HEMOGLOBIN 11.1 g/dL (12.0-15.5); MEAN CORPUSCULAR HEMOGLOBIN 30.7 pg (27.0-33.4); MEAN CORPUSCULAR HGB CONC 33.4 g/dL (32.0-36.0); MEAN CORPUSCULAR VOLUME 92 fl (80-97); PLATELET COUNT 172 10^3/uL (150-450); RED BLOOD COUNT 3.61 10^6/uL (3.72-5.28); RED CELL DISTRIBUTION WIDTH 13.8 % (11.5-14.0); WHITE BLOOD COUNT 10.3 10^3/uL (4.0-10.5)
[2018-10-24 07:07] LABS: BLOOD UREA NITROGEN 97 mg/dL (7-20); CALCIUM 9.8 mg/dL (8.4-10.2); CHLORIDE 89 mmol/L (98-107); GLUCOSE 236 mg/dL (75-110); SODIUM 134.5 mmol/L (137-145)
[2018-10-24 07:40] LABS: CARBON DIOXIDE 43 mmol/L (22-30)
[2018-10-24 07:41] LABS: ANION GAP 3 (5-19)
[2018-10-24] MEDS: INSULIN REG, HUMAN 100 UNIT/ML 3 ML VIAL (PYX) SUBCUT PRN ×4 (07:57→21:47)
[2018-10-24] MEDS: SODIUM CHLORIDE NASAL SPRAY 44 ML NASL SCH ×4 (07:58→21:16)
[2018-10-24] MEDS: CETIRIZINE 10 MG TABLET PO SCH (07:58)
[2018-10-24] MEDS: FLUTICASONE NASAL SPRAY 50 MCG/SPRY 120 SPRAY/16 GM NASL SCH (07:58)
[2018-10-24] MEDS: DOCUSATE SODIUM 100 MG CAPSULE PO SCH (07:59)
[2018-10-24] MEDS: CARVEDILOL 12.5 MG TABLET PO SCH ×2 (08:00→21:15)
[2018-10-24] MEDS: BUDESONIDE NEB 0.5 MG/2 ML AMPUL NEB SCH ×2 (09:19→20:38)
[2018-10-24] MEDS: MAGNESIUM OXIDE 400 MG TABLET PO SCH ×2 (09:56→17:26)
[2018-10-24] MEDS: ASPIRIN 81 MG TABLET, ENT COATED PO SCH (09:57)
[2018-10-24] MEDS: GUAIFENESIN 600 MG TABLET.SA PO SCH ×2 (09:57→21:15)
[2018-10-24] MEDS: CHOLECALCIFEROL (D3) 1,000 UNIT TABLET PO SCH (09:57)
[2018-10-24] MEDS: GLIMEPIRIDE 4 MG TABLET PO SCH ×2 (09:57→21:15)
[2018-10-24] MEDS: PREDNISONE 10 MG TABLET PO SCH ×2 (09:57→17:26)
[2018-10-24] MEDS: LISINOPRIL 10 MG TABLET PO SCH (09:57)
[2018-10-24] MEDS: FAMOTIDINE 20 MG TABLET PO SCH ×2 (09:58→21:15)
[2018-10-24] MEDS: AMLODIPINE BESYLATE 10 MG TABLET PO SCH (09:58)
[2018-10-24] MEDS: FERROUS SULFATE 325 MG TABLET PO SCH (09:58)
[2018-10-24] MEDS: INSULIN GLARGINE,HUM.REC.ANLOG 1,000 UNIT/10 ML UNIT SUBCUT SCH ×2 (09:58→17:26)
[2018-10-24] MEDS: TRAMADOL HCL 50 MG TABLET PO PRN ×3 (09:58→23:30)
[2018-10-24] MEDS: POLYETHYLENE GLYCOL 3350 POWDER 17 GM/1 PACKET PO SCH (09:59)
[2018-10-24 10:38] LABS: ARTERIAL BLOOD BASE EXCESS 11.3 mmol/L; ARTERIAL BLOOD H2CO3 1.75 mmol/L (1.05-1.35); ARTERIAL BLOOD HCO3 37.6 mmol/L (20-24); ARTERIAL BLOOD O2 SATURATION 97.1 % (94-98); ARTERIAL BLOOD PH 7.43 (7.35-7.45); ARTERIAL BLOOD PO2 92.4 mmHg (80-100); ARTERIAL BLOOD TOTAL CO2 39.4 mmol/L (21-25)
[2018-10-24 10:39] LABS: ARTERIAL BLOOD FIO2 3L
[2018-10-24 11:35] LABS: APPEARANCE,URINE CLEAR; BILIRUBIN,URINE NEGATIVE (NEGATIVE); COLOR,URINE YELLOW; GLUCOSE, URINE 50 mg/dL (NEGATIVE); KETONES,URINE NEGATIVE (NEGATIVE); LEUKOCYTE ESTERASE,URINE SMALL (NEGATIVE); NITRITE,URINE NEGATIVE (NEGATIVE); PROTEIN,URINE NEGATIVE (NEGATIVE); UROBILINOGEN,URINE NEGATIVE mg/dL (<2.0)
--- NOTE | 2018-10-24 14:47 | PDOC PROGRESS REPORT ---
Subjective Progress Note for:: 10/24/18 Subjective:: The patient is a 68-year-old female with a past medical history of PAF, CHF, CAD, LA, HTN, HLD, COPD who is home O2 dependent, GUDELIA, ischemic CVA, DM, hypothyroidism, CKD, arthritis, and depression who was admitted on 10/17/18 for acute on chronic respiratory failure with hypoxia and hypercapnia and acute encephalopathy. The patient was seen on morning rounds. She was found resting in bed comfortably on supplemental oxygen via nasal cannula at 3.5 L/min. The patient reports continued fatigue and slight dyspnea (continues to require 3 lpm vs her baseline of 2 lpm). She reports increased urinary urgency and frequency today. She denies dysuria and suprapubic/flank pain. She does report chronic urinary incontinence. She further denies fever, chills, headache, dizziness, chest pain, palpitations, orthopnea, cough, abdominal pain, nausea vomiting and diarrhea. She has no other questions or concerns at this time. No concerns per nursing. Reason For Visit: ACUTE ON CHRONIC RESPIRATORY FAILURE, HYPERCAPNIA Physical Exam Vital Signs: Temp Pulse Resp BP Pulse Ox 98.0 F 74 20 121/46 L 95 10/24/18 03:43 10/24/18 14:00 10/24/18 09:19 10/24/18 03:43 10/24/18 09:19 Intake & Output 10/23/18 10/24/18 10/25/18 06:59 06:59 06:59 Intake Total 952 237 Balance 952 237 Weight 135 kg 134.6 kg General appearance: PRESENT: no acute distress, cooperative, morbidly obese, well-developed, well-nourished Head exam: PRESENT: atraumatic, normocephalic Eye exam: PRESENT: conjunctiva pink, EOMI, PERRLA. ABSENT: scleral icterus Ear exam: PRESENT: normal external ear exam Mouth exam: PRESENT: moist, tongue midline Neck exam: ABSENT: carotid bruit, JVD, lymphadenopathy, thyromegaly Respiratory exam: PRESENT: clear to auscultation emperatriz, decreased breath sounds - Secondary to body habitus and poor expiratory effort, prolonged expiratory phas, symmetrical, unlabored, other - supplemental oxygen via NC. ABSENT: rales, rhonchi, wheezes Cardiovascular exam: PRESENT: RRR. ABSENT: diastolic murmur, rubs, systolic murmur Pulses: PRESENT: normal dorsalis pedis pul Vascular exam: PRESENT: normal capillary refill GI/Abdominal exam: PRESENT: normal bowel sounds, soft. ABSENT: distended, guarding, mass, organolmegaly, rebound, tenderness Rectal exam: PRESENT: deferred Extremities exam: PRESENT: full ROM. ABSENT: calf tenderness, clubbing, pedal edema Neurological exam: PRESENT: alert, awake, oriented to person, oriented to place, oriented to time, oriented to situation, CN II-XII grossly intact. ABSENT: motor sensory deficit Psychiatric exam: PRESENT: appropriate affect, normal mood. ABSENT: homicidal ideation, suicidal ideation Skin exam: PRESENT: dry, intact, warm. ABSENT: cyanosis, rash Results Laboratory Results: 10/24/18 05:31 10/24/18 05:31 10/24/18 10/24/18 10/24/18 05:31 05:31 10:21 WBC 10.3 RBC 3.61 L Hgb 11.1 L Hct 33.2 L MCV 92 MCH 30.7 MCHC 33.4 RDW 13.8 Plt Count 172 Carbonic Acid 1.75 H HCO3/H2CO3 Ratio 21:1 ABG pH 7.43 ABG pCO2 58.0 H ABG pO2 92.4 ABG HCO3 37.6 H ABG O2 Saturation 97.1 ABG Base Excess 11.3 FiO2 3L Sodium 134.5 L Potassium 5.0 Chloride 89 L Carbon Dioxide 43 H* Anion Gap 3 L BUN 97 H Creatinine 2.01 H Est GFR ( Amer) 30 L Est GFR (Non-Af Amer) 25 L Glucose 236 H Calcium 9.8 Urine Color Urine Appearance Urine pH Ur Specific [place] Urine Protein Urine Glucose (UA) Urine Ketones Urine Blood Urine Nitrite Ur Leukocyte Esterase Urine WBC (Auto) Urine RBC (Auto) 10/24/18 11:10 WBC RBC Hgb Hct MCV MCH MCHC RDW Plt Count Carbonic Acid HCO3/H2CO3 Ratio ABG pH ABG pCO2 ABG pO2 ABG HCO3 ABG O2 Saturation ABG Base Excess FiO2 Sodium Potassium Chloride Carbon Dioxide Anion Gap BUN Creatinine Est GFR ( Amer) Est GFR (Non-Af Amer) Glucose Calcium Urine Color YELLOW Urine Appearance CLEAR Urine pH 6.0 Ur Specific [place] 1.010 Urine Protein NEGATIVE Urine Glucose (UA) 50 H Urine Ketones NEGATIVE Urine Blood NEGATIVE Urine Nitrite NEGATIVE Ur Leukocyte Esterase SMALL H Urine WBC (Auto) 22 Urine RBC (Auto) 0 10/16/18 22:26 Troponin I < 0.012 Impressions: Head CT 10/16/18 21:57 IMPRESSION: Age-appropriate atrophy with minor small vessel ischemic change. Mucosal thickening of the ethmoid air cells and left sphenoid sinus. TECHNICAL DOCUMENTATION: Quality ID # [id number]: Final reports with documentation of one or more dose reduction techniques (e.g., Automated exposure control, adjustment of the mA and/or kV according to patient size, use of iterative reconstruction technique) copyright 2010 [employer]- All Rights Reserved Chest X-Ray 10/16/18 21:58 IMPRESSION: Cardiomegaly. Lungs are clear copyright 2010 [employer]- All Rights Reserved Assessment & Plan - Diagnosis (1) Acute on chronic respiratory failure Qualifiers: Respiratory failure complication: hypoxia and hypercapnia Qualified Code(s): J96.21 - Acute and chronic respiratory failure with hypoxia; J96.22 - Acute and chronic respiratory failure with hypercapnia Is this a current diagnosis for this admission?: Yes Plan: Slight improved. Acute exacerbation has resolved; she is no longer hypoxic but does continue to require slightly more than her baseline oxygen requirement. She has been transitioned back to CPAP 3 nights previously, however, bicarb is trending up. Most recent ABG demonstrated PCO2 of 50.3; this appears to be her baseline as the patient does have end-stage COPD. The patient tells me that she wishes to be DNR/DNI; but does not give me permission to change her CODE STATUS in the computer as she knows that her son would object and want her to be a full code. She is agreeable to meeting with palliative care and asks that arrangements be made so that her son can be present to discuss future goals of care. The patient was admitted to [facility] on continuous cardiac telemetry. She is provided supplemental oxygen as needed to maintain oxygen saturations greater than 89%. She currently requires 3.5 L/min while awake; she is home O2 dependent at a baseline of 2 L/min. Nursing is asked to continue attempts to wean. Initially the patient required BiPAP; this was weaned to CPAP. Bicarb is now trending up slightly; discussed with respiratory, will resume BiPAP tonight. She was initially placed on IV Solu-Medrol; this has been weaned to p.o. prednisone 10 mg twice daily. She continues to receive scheduled and as needed nebulizer treatments. Mucinex twice daily. Incentive spirometer and flutter valve to bedside. Will consult pulmonology; appreciate Dr. Lancaster's evaluation and recommendations. (2) Acute encephalopathy Is this a current diagnosis for this admission?: Yes Plan: Resolved; altered mental status was secondary to hypercapnia and hypoxia. The patient was admitted with a PCO2 of 82; baseline of 50. Head CT was negative for acute changes. Management of chronic respiratory failure as above. Avoid sedating medications as able. Fall and safety precautions in place. (3) Diabetes mellitus type 2 in obese Is this a current diagnosis for this admission?: Yes Plan: A1c of 6.4%. She is placed on a consistent carb diet with Accu-Cheks before meals and at bedtime. Continue Lantus 60 units twice daily with Humalog for sliding scale coverage. Continue her home dose of glimepiride. The registered dietitian and diabetic educators are consulted. (4) CKD (chronic kidney disease) stage 4, GFR 15-29 ml/min Is this a current diagnosis for this admission?: Yes Plan: Baseline creatinine of 1.9, BUN 40s, eGFR 30s. The patient was admitted with a creatinine of 1.88; this improved to 1.36, however has returned to 2.01 which is not unusual for the patient when reviewing historic labs. However, her BUN is elevated nd continues to trend up; 97 today which is a significant departure from her average. This is likely secondary to aggressive diuretic use. We will avoid nephrotoxic medications as able. Holding Lasix (discontinued yesterday). Encourage p.o. fluids. Daily chemistry. Will place nephrology consultation; appreciate their evaluation and recomme ndations. Patient states she is established with Dr. Day as an outpatient. (5) COPD (chronic obstructive pulmonary disease) Qualifiers: COPD type: unspecified COPD Qualified Code(s): J44.9 - Chronic obstructive pulmonary disease, unspecified Is this a current diagnosis for this admission?: Yes Plan: COPD exacerbation has resolved; management as above. (6) Hypertension Qualifiers: Hypertension type: essential hypertension Qualified Code(s): I10 - Essential (primary) hypertension Is this a current diagnosis for this admission?: Yes Plan: Now normotensive. Cardiac diet. Daily weights with strict I&O's. Continue Amlodipine 10 mg daily, carvedilol 25 mg twice daily, and lisinopril 10 mg daily. Holding Lasix secondary to elevated BUN. (7) Pyuria Is this a current diagnosis for this admission?: Yes Plan: Secondary to colonized Jamee. Patient denies UTI symptoms. Patient did receive Diflucan 100 mg x3. - Time Time Spent with patient: 25-34 minutes Medications reviewed and adjusted accordingly: Yes Anticipated discharge: SNF - terminal gauger resident at [facility] Within: within 48 hours
--- NOTE | 2018-10-24 17:09 | PDOC CONSULTATION ---
Consultation Consult Date: 10/24/18 Consult reason:: AK I History of Present Illness Admission Date/PCP: 10/17/18 01:49 RAO PAGE MD History of Present Illness: LORETO JOSHI is a 68 year old female with history of long-standing complicated diabetes mellitus, hypertension, CAD/CHF, History of multiple infections with multidrug-resistant organisms, History of cervical cancer for which she had surgery without any history of chemo or radiation in the remote past,history of multiple CVAs with residual deficits and currently a custodial resident was brought in from the custodial with altered mental status.Evaluations revealed that she had acute on chronic COPD with altered gases. She has done well with her altered mental status of and currently is very awake and oriented and coherent. Further questioning reveals that the patient has had a long-standing history of complicated diabetic enteropathy and gastroparesis along with severe peripheral neuropathy.She also has what looks like a neurogenic bladder. During her hospitalization she was found to have worsening renal numbers. Bladder scan showed high residuals. Catheter introduced into the bladder revealed 600+ cc of urine.She feels better after the urine has been evacuated. Patient denies any history of abdominal pains fever chills or rigors. No history of any chest pain shortness of breath. Labs and medications were reviewed with the patient. Past Medical History Cardiac Medical History: Reports: Atrial Fibrillation - Paroxysmal, CHF- Diastolic, Coronary Artery Disease, Hyperlipidemia, Hypertension-primary, Myocardial Infarction Denies: DVT, Pulmonary Embolism Pulmonary Medical History: Reports: Chronic Obstructive Pulmonary Disease (COPD), Pneumonia, Sleep Apnea Denies: Asthma, Bronchitis EENT Medical History: Reports: None Neurological Medical History: Reports: Ischemic CVA Denies: Migraine, Seizures Endocrine Medical History: Reports: Diabetes Mellitus Type 2, Hypothyroidism Denies: Diabetes Mellitus Type 1, Hyperthyroidism Complications of Diabetes: Reports: None, Autonomic Neuropathy, Nephropathy Renal/ Medical History: Reports: Chronic Kidney Disease Stage III Denies: Nephrolithiasis Malignancy Medical History: Reports: Cervical Cancer GI Medical History: Denies: Cirrhosis, Hepatitis Musculoskeltal Medical History: Reports: Arthritis, Gout Skin Medical History: Denies: Eczema, Psoriasis Psychiatric Medical History: Reports: Depression Denies: Alcohol Dependency, Substance Abuse, Tobacco Dependency Traumatic Medical History: Reports: None Infectious Medical History: Reports: Clostridium Difficile - History of severe persistent C. difficile while in [place] and underwent fec Past Surgical History Past Surgical History: Reports: Appendectomy, Section, Cholecystectomy, Herniorrhaphy, Other - Breast cyst, history of fecal transplant for C. difficile Denies: Hysterectomy Social History Lives with: [facility] Smoking Status: Former Smoker Frequency of Alcohol Use: None Hx Recreational Drug Use: No Drugs: None Hx Prescription Drug Abuse: No - Advance Directive Resuscitation Status: Full Code Family History Parental Family History Reviewed: Yes - Negative for ESRD. Children Family History Reviewed: Yes Sibling(s) Family History Reviewed.: Yes Medication/Allergy Home Medications: Allopurinol [Zyloprim 100 mg Tablet] 100 mg PO QPM 10/17/18 Amlodipine Besylate [Norvasc 10 mg Tablet] 10 mg PO QAM 10/17/18 Atorvastatin Calcium [Lipitor 20 mg Tablet] 20 mg PO QHS 10/17/18 Carvedilol [Coreg 12.5 mg Tablet] 12.5 mg PO Q12 18 Cetirizine HCl [Zyrtec 10 mg Tablet] 10 mg PO QAM 10/17/18 Cholecalciferol (Vitamin D3) [Vitamin D3 5000 unit Capsule] 5,000 unit PO QAM 10/17/18 Clobetasol Propionate [Temovate Solution] 1 applic TOP QHS MDD SCALP & EAR LOBES 10/17/18 Cran/Vitc/Mannose/Fos/Bromeln [Uti-Stat Liquid] 30 ml PO QAM 10/17/18 Docusate Sodium [Colace 100 mg Capsule] 100 mg PO QAM 10/17/18 Fenofibrate 54mg 54 mg PO QPM 10/17/18 Fluticasone Propionate [Flonase Nasal [place] 50 Mcg/[place] 16 gm] 2 spray NASL QAM 10/17/18 Furosemide [Lasix 80 mg Tablet] 80 mg PO BID 10/17/18 Glimepiride [Amaryl 4 mg Tablet] 4 mg PO Q12 10/17/18 Insulin Glargine,Hum.rec.anlog [Lantus Insulin 100 Unit/mL] 40 units SQ Q12 10/17/18 Insulin Lispro [Humalog Insulin (Lispro) 100 unit/mL] 0 units SQ .PERSLIDINGSCALE 10/17/18 Levothyroxine Sodium 88 mcg PO Q6AM 10/17/18 Lifitegrast [Xiidra] 1 drop OU BID 10/17/18 Nitrofurantoin Macrocrystal [Nitrofurantoin] 100 mg PO [id number] MDD LAST DOSE ON 10/20/18 10/17/18 Ondansetron HCl [Zofran 4 mg Tablet] 4 mg PO Q8HP PRN 10/17/18 Phenol [Chloraseptic] 2 sprays PO BIDP PRN 10/17/18 Pimecrolimus [Elidel] 1 applic TOP BID MDD FACE & EARS FOR FLAKY SKIN 10/17/18 Potassium Chloride [K-Tab ER] 20 meq PO BID 10/17/18 Pregabalin [Lyrica 100 mg Capsule] 100 mg PO Q8 10/17/18 Ranitidine HCl [Zantac 150 mg Tablet] 150 mg PO BID 10/17/18 Sodium Chloride [Saline Mist] 1 spray NASL ACHS 10/17/18 Tramadol HCl [Ultram 50 mg Tablet] 50 mg PO Q4HP PRN 10/17/18 Trazodone HCl [Desyrel 50 mg Tablet] 25 mg PO QHS 10/17/18 Allergies/Adverse Reactions: No Known Allergies Allergy (Verified 03/15/18 15:04) Review of Systems Constitutional: PRESENT: fatigue, weakness. ABSENT: anorexia, chills, fever(s), headache(s) Eyes: ABSENT: visual disturbances Nose, Mouth, and Throat: ABSENT: headache(s), mouth pain, sore throat Cardiovascular: ABSENT: chest pain, dyspnea on exertion, edema, orthropnea, palpitations Gastrointestinal: PRESENT: bloating, constipation, diarrhea, nausea. ABSENT: abdominal pain, hematemesis, hematochezia, vomiting Genitourinary: PRESENT: difficulty urinating. ABSENT: dysuria, hematuria Integumentary: ABSENT: erythema, lesions, pruritus, rash Neurological: ABSENT: abnormal movements, abnormal speech, confusion, focal weakness Endocrine: ABSENT: polydipsia Hematologic/Lymphatic: ABSENT: easy bleeding, easy bruising, lymphadenopathy Physical Exam Vital Signs: Temp Pulse Resp BP Pulse Ox 98.0 F 74 20 121/46 L 95 10/24/18 03:43 10/24/18 14:00 10/24/18 09:19 10/24/18 03:43 10/24/18 09:19 Intake & Output 12/18/18 12/19/18 12/20/18 06:59 06:59 06:59 Intake Total 952 237 Balance 952 237 Weight 135 kg 134.6 kg General appearance: PRESENT: no acute distress, morbidly obese Eye exam: PRESENT: conjunctiva pink, EOMI. ABSENT: nystagmus, periorbital swelling Ear exam: PRESENT: normal external ear exam Mouth exam: PRESENT: moist, neck supple Neck exam: ABSENT: lymphadenopathy, meningismus, tenderness, thyromegaly, tracheal deviation Respiratory exam: PRESENT: clear to auscultation emperatriz, decreased breath sounds. ABSENT: crackles Cardiovascular exam: PRESENT: +S1, +S2, systolic murmur GI/Abdominal exam: PRESENT: normal bowel sounds, soft. ABSENT: organomegaly, tenderness Extremities exam: ABSENT: calf tenderness Neurological exam: PRESENT: alert, awake, oriented to person, oriented to place Psychiatric exam: PRESENT: appropriate affect Skin exam: ABSENT: cyanosis, erythema, rash Results Laboratory Results: 10/24/18 05:31 10/24/18 05:31 10/24/18 10/24/18 10/24/18 05:31 05:31 10:21 WBC 10.3 RBC 3.61 L Hgb 11.1 L Hct 33.2 L MCV 92 MCH 30.7 MCHC 33.4 RDW 13.8 Plt Count 172 Carbonic Acid 1.75 H HCO3/H2CO3 Ratio 21:1 ABG pH 7.43 ABG pCO2 58.0 H ABG pO2 92.4 ABG HCO3 37.6 H ABG O2 Saturation 97.1 ABG Base Excess 11.3 FiO2 3L Sodium 134.5 L Potassium 5.0 Chloride 89 L Carbon Dioxide 43 H* Anion Gap 3 L BUN 97 H Creatinine 2.01 H Est GFR ( Amer) 30 L Est GFR (Non-Af Amer) 25 L Glucose 236 H Calcium 9.8 Urine Color Urine Appearance Urine pH Ur Specific [place] Urine Protein Urine Glucose (UA) Urine Ketones Urine Blood Urine Nitrite Ur Leukocyte Esterase Urine WBC (Auto) Urine RBC (Auto) 10/24/18 11:10 WBC RBC Hgb Hct MCV MCH MCHC RDW Plt Count Carbonic Acid HCO3/H2CO3 Ratio ABG pH ABG pCO2 ABG pO2 ABG HCO3 ABG O2 Saturation ABG Base Excess FiO2 Sodium Potassium Chloride Carbon Dioxide Anion Gap BUN Creatinine Est GFR ( Amer) Est GFR (Non-Af Amer) Glucose Calcium Urine Color YELLOW Urine Appearance CLEAR Urine pH 6.0 Ur Specific [place] 1.010 Urine Protein NEGATIVE Urine Glucose (UA) 50 H Urine Ketones NEGATIVE Urine Blood NEGATIVE Urine Nitrite NEGATIVE Ur Leukocyte Esterase SMALL H Urine WBC (Auto) 22 Urine RBC (Auto) 0 10/16/18 22:26 Troponin I < 0.012 Impressions: Head CT 10/16/18 21:57 IMPRESSION: Age-appropriate atrophy with minor small vessel ischemic change. Mucosal thickening of the ethmoid air cells and left sphenoid sinus. TECHNICAL DOCUMENTATION: Quality ID # [id number]: Final reports with documentation of one or more dose reduction techniques (e.g., Automated exposure control, adjustment of the mA and/or kV according to patient size, use of iterative reconstruction technique) copyright 2010 [employer]- All Rights Reserved Chest X-Ray 10/16/18 21:58 IMPRESSION: Cardiomegaly. Lungs are clear copyright 2010 [employer]- All Rights Reserved Assessment & Plan - Diagnosis (1) Neurogenic bladder Plan: We will introduce a Moreira catheter. Get a renal ultrasound to exclude possibility of hydronephrosis as she definitely has features of obstructive uropathy . She should have the Moreira catheter in place and discharged home and can follow with a urologist as an outpatient. (2) Acute on chronic respiratory failure Qualifiers: Respiratory failure complication: hypoxia and hypercapnia Qualified Code(s): J96.21 - Acute and chronic respiratory failure with hypoxia; J96.22 - Acute and chronic respiratory failure with hypercapnia Is this a current diagnosis for this admission?: Yes Plan: From her COPD which is much improved and apparently back to her baseline. (3) Diabetes mellitus type 2 in obese Is this a current diagnosis for this admission?: Yes Plan: Advised the need for tight diabetic control given her complications from that. (4) Acute encephalopathy Is this a current diagnosis for this admission?: Yes Plan: Currently resolved after acute on chronic hypercarbic state. (5) Acute kidney injury superimposed on chronic kidney disease Plan: Currently there would be multiple factors including gentle metabolic issues with with obstructive uropathy as well. See earlier guidelines. (6) CHF (congestive heart failure) Plan: Presently stable and compensated. (7) COPD (chronic obstructive pulmonary disease) Qualifiers: COPD type: unspecified COPD Qualified Code(s): J44.9 - Chronic obstructive pulmonary disease, unspecified Is this a current diagnosis for this admission?: Yes Plan: Stable currently. (8) Chronic kidney disease, stage 3 Is this a current diagnosis for this admission?: Yes Plan: Apparently from diabetes/hypertension. She used to be a patient of Dr. Day. (9) Constipation Plan: Alternating with diarrhea as part of diabetic enteropathy. This could be looked at and treated by her primary care or by gastroenterology.Differentials also may include small bowel bacterial overgrowth syndrome. (10) Morbid obesity Plan: Advised on the need to lose weight in the long-term.
[2018-10-24] MEDS: FENOFIBRATE NANOCRYSTALLIZED 48 MG TABLET PO SCH (17:26)
[2018-10-24] MEDS: TRAZODONE HCL 50 MG TABLET PO SCH (21:15)
[2018-10-24] MEDS: ATORVASTATIN CALCIUM 20 MG TABLET PO SCH (21:16)
[2018-10-24] MEDS: CLOBETASOL PROPIONATE 0.05% TOPICAL SOLN 25 ML TOP SCH (21:19)
[2018-10-25 05:54] LABS: ANION GAP 5 (5-19); BLOOD UREA NITROGEN 112 mg/dL (7-20); CALCIUM 9.9 mg/dL (8.4-10.2); CARBON DIOXIDE 39 mmol/L (22-30); CHLORIDE 89 mmol/L (98-107); GLUCOSE 222 mg/dL (75-110); POTASSIUM 4.9 mmol/L (3.6-5.0); SODIUM 133.3 mmol/L (137-145)
[2018-10-25] MEDS: PREGABALIN 100 MG CAPSULE PO SCH ×2 (06:01→15:32)
[2018-10-25] MEDS: HEPARIN SOD (PORCINE) 5,000 UNIT/ML 1 ML SYRINGE SUBCUT SCH ×2 (06:01→15:31)
[2018-10-25] MEDS: LEVOTHYROXINE SODIUM 0.088 MG TABLET PO SCH (06:01)
[2018-10-25] MEDS: TRAMADOL HCL 50 MG TABLET PO PRN (06:11)
--- NOTE | 2018-10-25 07:12 | RADIOLOGY REPORT (SQ) ---
EXAM DESCRIPTION: US RETROPERITONEUM LIMITED COMPLETED DATE/TME: 10/24/2018 00:00 CLINICAL HISTORY: 68 years Female, TIFFANIE Comparison:03/15/2018 LIMITATIONS: Bowel gas and body habitus artifact. FINDINGS: 11.9-cm right kidney, 11.9-cm left kidney, and obscured/decompressed bladder with demonstrated bilateral ureteral jet flow appear otherwise of normal size, shape, echotexture, and vascularity. Moreira catheter. IMPRESSION: No acute findings. Obscured/decompressed urinary bladder.
[2018-10-25] MEDS: SODIUM CHLORIDE NASAL SPRAY 44 ML NASL SCH ×3 (07:30→15:32)
[2018-10-25] MEDS: IPRATROPIUM BROMIDE 0.02% NEB 0.5 MG/2.5 ML AMPUL NEB SCH ×2 (07:53→16:11)
[2018-10-25] MEDS: BUDESONIDE NEB 0.5 MG/2 ML AMPUL NEB SCH (07:53)
[2018-10-25] MEDS: LEVALBUTEROL HCL NEB 1.25 MG/3 ML AMPUL NEB SCH ×2 (07:53→16:11)
[2018-10-25] MEDS ORDERED: TRAMADOL HCL 50 MG TABLET PO PRN (09:33)
[2018-10-25] MEDS ORDERED: AMLODIPINE BESYLATE 5 MG TABLET PO SCH (10:00)
[2018-10-25] MEDS: CHOLECALCIFEROL (D3) 1,000 UNIT TABLET PO SCH (10:08)
[2018-10-25] MEDS: CARVEDILOL 12.5 MG TABLET PO SCH (10:08)
[2018-10-25] MEDS: DOCUSATE SODIUM 100 MG CAPSULE PO SCH (10:08)
[2018-10-25] MEDS: GUAIFENESIN 600 MG TABLET.SA PO SCH (10:08)
[2018-10-25] MEDS: GLIMEPIRIDE 4 MG TABLET PO SCH (10:08)
[2018-10-25] MEDS: MAGNESIUM OXIDE 400 MG TABLET PO SCH ×2 (10:08→17:45)
[2018-10-25] MEDS: ASPIRIN 81 MG TABLET, ENT COATED PO SCH (10:08)
[2018-10-25] MEDS: POLYETHYLENE GLYCOL 3350 POWDER 17 GM/1 PACKET PO SCH (10:09)
[2018-10-25] MEDS: PREDNISONE 10 MG TABLET PO SCH ×2 (10:09→17:45)
[2018-10-25] MEDS: FERROUS SULFATE 325 MG TABLET PO SCH (10:09)
[2018-10-25] MEDS: LISINOPRIL 10 MG TABLET PO SCH (10:09)
[2018-10-25] MEDS: FLUTICASONE NASAL SPRAY 50 MCG/SPRY 120 SPRAY/16 GM NASL SCH (10:11)
[2018-10-25] MEDS: INSULIN GLARGINE,HUM.REC.ANLOG 1,000 UNIT/10 ML UNIT SUBCUT SCH ×2 (10:25→17:45)
--- NOTE | 2018-10-25 10:27 | PDOC PROGRESS REPORT ---
Subjective Progress Note for:: 10/25/18 Reason For Visit: Patient seen in the hospital today. She is feeling better. No complaints of an abdominal pains, fever or chills. She has a Moreira catheter in the bladder now. Labs and medications were reviewed with the patient.Renal ultrasound thankfully did not show any evidences of hydronephrosis. Physical Exam Vital Signs: Temp Pulse Resp BP Pulse Ox 98.0 F 60 20 123/50 L 100 10/25/18 07:38 10/25/18 07:38 10/25/18 07:38 10/25/18 07:38 10/25/18 07:38 Intake & Output 10/24/18 10/25/18 10/26/18 06:59 06:59 06:59 Intake Total 237 1017 Output Total 2175 Balance 237 -1158 Weight 134.6 kg 137.1 kg General appearance: PRESENT: no acute distress Respiratory exam: PRESENT: clear to auscultation emperatriz, decreased breath sounds. ABSENT: crackles Cardiovascular exam: PRESENT: +S1, +S2, systolic murmur GI/Abdominal exam: PRESENT: normal bowel sounds, soft. ABSENT: organomegaly, tenderness Neurological exam: PRESENT: alert, awake, oriented to person, oriented to place Psychiatric exam: PRESENT: anxious Skin exam: ABSENT: cyanosis, erythema, rash Results Laboratory Results: 10/24/18 05:31 10/25/18 05:12 10/24/18 10/24/18 10/25/18 10:21 11:10 05:12 Carbonic Acid 1.75 H HCO3/H2CO3 Ratio 21:1 ABG pH 7.43 ABG pCO2 58.0 H ABG pO2 92.4 ABG HCO3 37.6 H ABG O2 Saturation 97.1 ABG Base Excess 11.3 FiO2 3L Sodium 133.3 L Potassium 4.9 Chloride 89 L Carbon Dioxide 39 H Anion Gap 5 BUN 112 H Creatinine 2.19 H Est GFR ( Amer) 27 L Est GFR (Non-Af Amer) 22 L Glucose 222 H Calcium 9.9 Urine Color YELLOW Urine Appearance CLEAR Urine pH 6.0 Ur Specific [place] 1.010 Urine Protein NEGATIVE Urine Glucose (UA) 50 H Urine Ketones NEGATIVE Urine Blood NEGATIVE Urine Nitrite NEGATIVE Ur Leukocyte Esterase SMALL H Urine WBC (Auto) 22 Urine RBC (Auto) 0 10/16/18 22:26 Troponin I < 0.012 Impressions: Head CT 10/16/18 21:57 IMPRESSION: Age-appropriate atrophy with minor small vessel ischemic change. Mucosal thickening of the ethmoid air cells and left sphenoid sinus. TECHNICAL DOCUMENTATION: Quality ID # 436: Final reports with documentation of one or more dose reduction techniques (e.g., Automated exposure control, adjustment of the mA and/or kV according to patient size, use of iterative reconstruction technique) copyright 2010 [employer]- All Rights Reserved Chest X-Ray 10/16/18 21:58 IMPRESSION: Cardiomegaly. Lungs are clear copyright 2010 [employer]- All Rights Reserved Renal Ultrasound 10/24/18 00:00 IMPRESSION: No acute findings. Obscured/decompressed urinary bladder. Assessment & Plan - Diagnosis (1) Neurogenic bladder Plan: She now has a Moreira catheter in which I would recommend to be left in through [facility]. She definitely needs to be referred to a urologist as an outpatient who needs to work this up. We discussed the possibility of infections with the Moreira catheter but is also very likely that she would end up with infections of the bladder as well as possible pyelonephritis and acute worsening of her kidney functions if the neurogenic bladder is not adequately looked at. (2) Acute on chronic respiratory failure Qualifiers: Respiratory failure complication: hypoxia and hypercapnia Qualified Code(s ): J96.21 - Acute and chronic respiratory failure with hypoxia; J96.22 - Acute and chronic respiratory failure with hypercapnia Is this a current diagnosis for this admission?: Yes Plan: Much improved and stable. (3) Diabetes mellitus type 2 in obese Is this a current diagnosis for this admission?: Yes Plan: Advised that she should have a tight control of her diabetes especially now that she is got a Moreira catheter in. (4) Acute encephalopathy Is this a current diagnosis for this admission?: Yes Plan: Resolved. (5) Acute kidney injury superimposed on chronic kidney disease Plan: The face of acute obstructive uropathy. I do not see any other reason for her AK I. Now with a Moreira catheter in and decompression of the bladder she looks like she has stabilized AK I.She should follow-up with a urologist as an outpatient. She also needs to follow-up with Dr. Day post discharge 2-3 weeks. (6) CHF (congestive heart failure) Plan: Stable. (7) COPD (chronic obstructive pulmonary disease) Qualifiers: COPD type: unspecified COPD Qualified Code(s): J44.9 - Chronic obstructive pulmonary disease, unspecified Is this a current diagnosis for this admission?: Yes Plan: Currently compensated. (8) Chronic kidney disease, stage 3 Is this a current diagnosis for this admission?: Yes Plan: Secondary to diabetes/hypertension. This needs to be monitored as an outpatient post discharge.
--- NOTE | 2018-10-25 16:22 | PDOC DISCHARGE SUMMARY ---
General - Admit/Disc Date/PCP Admission Date/Primary Care Provider: 10/17/18 01:49 RAO PAGE MD Discharge Date: 10/25/18 - Discharge Diagnosis (1) Acute on chronic respiratory failure Is this a current diagnosis for this admission?: Yes Summary: Acute exacerbation has resolved. Secondary to COPD exacerbation in the setting of CHF, GUDELIA, morbid obesity, and obesity hypoventilation syndrome. Most recent ABG (10/24/18) demonstrated PCO2 of 58.0; this appears to be her baseline as the patient does have end-stage COPD. The patient was admitted to [facility] on continuous cardiac telemetry. She was provided supplemental oxygen as needed to maintain oxygen saturations greater than 89% and that she ruled out from BiPAP nightly and as needed. She was initially placed on IV Solu-Medrol and was gradually weaned off of steroids over the course of her 8 day admission. She was further supported with scheduled and as needed nebulizer treatments, Mucinex twice daily, Incentive spirometer and flutter valve. Pulmonology has been consulted; have cleared her for discharge to resume her previous oxygen and CPAP support. Recommend follow-up appointment with Dr. Lancaster as scheduled. (2) Acute encephalopathy Is this a current diagnosis for this admission?: Yes Summary: Resolved; altered mental status was secondary to hypercapnia and hypoxia. The patient was admitted with a PCO2 of 82; baseline of 50. Head CT was negative for acute changes. Management of chronic respiratory failure as above. (3) Diabetes mellitus type 2 in obese Is this a current diagnosis for this admission?: Yes Summary: A1c of 6.4%. She is placed on a consistent carb diet with Accu-Cheks before meals and at bedtime. Continue Lantus 60 units twice daily with Humalog for sliding scale coverage. Recommend discontinuing glyburide secondary to her renal function. (4) CKD (chronic kidney disease) stage 4, GFR 15-29 ml/min Is this a current diagnosis for this admission?: Yes Summary: Baseline creatinine of 1.9, BUN 40s, eGFR 30s. The patient was admitted with a creatinine of 1.88; this improved to 1.36, however has returned to 2.19 which is not unusual for the patient when reviewing historic labs. BUN remains elevated at 112 today. This is likely multifactorial secondary to aggressive diuretic use, multiple home medications with need for renal adjustment, and postobstructive AK I. The patient's home medication regiment was reviewed with the clinical pharmacist; medications were discontinued or dose is decreased as able. Nephrology was consulted; spoke with Dr. Stout today who is clear the patient for discharge. He recommends discharging with a Moreira catheter in place with urology follow-up due to neurogenic bladder (secondary to uncontrolled diabetes mellitus) resulting in postobstructive AK I. May resume furosemide; recommend repeat chemistry in 3-5 days. Follow-up with Dr. Day within 2 weeks. (5) COPD (chronic obstructive pulmonary disease) Is this a current diagnosis for this admission?: Yes Summary: COPD exacerbation has resolved; management as above. (6) Hypertension Is this a current diagnosis for this admission?: Yes Summary: Now normotensive; medications have been adjusted. The patient is discharged with a lower dose amlodipine 5 mg daily, lisinopril 10 mg daily, and carvedilol 25 mg twice daily. Cardiac diet. (7) Pyuria Is this a current diagnosis for this admission?: Yes Summary: Secondary to colonized Jamee. Patient denies UTI symptoms. Patient did receive Diflucan 100 mg x3. No indications for further antibiotic therapy. (8) Urinary retention Is this a current diagnosis for this admission?: Yes Summary: Secondary to neurogenic bladder. Moreira catheter is in place. Follow-up with urology within 4 weeks; retained catheter until otherwise directed by urology. - Additional Information Resuscitation Status: Full Code Discharge Diet: Cardiac, Diabetic Discharge Activity: Activity As Tolerated, Balance Activity w/Rest, Slowly Increase Activity, Supervised Activity, Weigh Daily Prescriptions: Amlodipine Besylate [Norvasc 5 mg Tablet] 5 mg PO DAILY #30 tablet Aspirin [Ecotrin 81 mg EC Tablet] 81 mg PO DAILY #30 tabec Budesonide [Pulmicort Neb 0.5 mg/2 ml Ampul] 0.5 mg NEB RTQ12 #60 ampul.neb Cetirizine HCl [Zyrtec 5 mg Tablet] 5 mg PO QAM #30 tablet Famotidine [Pepcid 20 mg Tablet] 20 mg PO QHS #30 tablet Insulin Glargine,Hum.rec.anlog [Lantus Insulin 100 Unit/1 ml 10 ml] 60 unit SUBCUT BID #1 unit Insulin Regular, Human [Humulin R (Reg) Insulin 100 unit/mL] 0 - 12 unit SUBCUT ACHSP PRN #1 vial PRN Reason: Lisinopril [Prinivil 10 mg Tablet] 10 mg PO DAILY #30 tablet Home Medications: Atorvastatin Calcium [Lipitor 20 mg Tablet] 20 mg PO QHS 10/17/18 Carvedilol [Coreg 12.5 mg Tablet] 12.5 mg PO Q12 10/17/18 Cholecalciferol (Vitamin D3) [Vitamin D3 5000 unit Capsule] 5,000 unit PO QAM 10/17/18 Clobetasol Propionate [Temovate Solution] 1 applic TOP QHS MDD SCALP & EAR LOBES 10/17/18 Cran/Vitc/Mannose/Fos/Bromeln [Uti-Stat Liquid] 30 ml PO QAM 10/17/18 Docusate Sodium [Colace 100 mg Capsule] 100 mg PO QAM 10/17/18 Fluticasone Propionate [Flonase Nasal [place] 50 Mcg/[place] 16 gm] 2 spray NASL QAM 10/17/18 Furosemide [Lasix 80 mg Tablet] 80 mg PO BID 10/17/18 Levothyroxine Sodium 88 mcg PO Q6AM 10/17/18 Lifitegrast [Xiidra] 1 drop OU BID 10/17/18 Ondansetron HCl [Zofran 4 mg Tablet] 4 mg PO Q8HP PRN 10/17/18 Phenol [Chloraseptic] 2 sprays PO BIDP PRN 10/17/18 Pimecrolimus [Elidel] 1 applic TOP BID MDD FACE & EARS FOR FLAKY SKIN 10/17/18 Potassium Chloride [K-Tab ER] 20 meq PO BID 10/17/18 Pregabalin [Lyrica 100 mg Capsule] 100 mg PO Q8 10/17/18 Ranitidine HCl [Zantac 150 mg Tablet] 150 mg PO BID 10/17/18 Sodium Chloride [Saline Mist] 1 spray NASL ACHS 10/17/18 Tramadol HCl [Ultram 50 mg Tablet] 50 mg PO Q4HP PRN 10/17/18 Trazodone HCl [Desyrel 50 mg Tablet] 25 mg PO QHS 10/17/18 Amlodipine Besylate [Norvasc 5 mg Tablet] 5 mg PO DAILY #30 tablet 10/25/18 Aspirin [Ecotrin 81 mg EC Tablet] 81 mg PO DAILY #30 tabec 10/25/18 Budesonide [Pulmicort Neb 0.5 mg/2 ml Ampul] 0.5 mg NEB RTQ12 #60 ampul.neb 10/25/18 Cetirizine HCl [Zyrtec 5 mg Tablet] 5 mg PO QAM #30 tablet 10/25/18 Cholecalciferol (Vitamin D3) [Vitamin D3 1000 Unit Tablet] 5,000 unit PO DAILY tablet 10/25/18 Famotidine [Pepcid 20 mg Tablet] 20 mg PO QHS #30 tablet 10/25/18 Ferrous Sulfate [Feosol 325 mg Tablet] 325 mg PO DAILY #0 tablet 10/25/18 Insulin Glargine,Hum.rec.anlog [Lantus Insulin 100 Unit/1 ml 10 ml] 60 unit SUBCUT BID #1 unit 10/25/18 Insulin Regular, Human [Humulin R (Reg) Insulin 100 unit/mL] 0 - 12 unit SUBCUT ACHSP PRN #1 vial 10/25/18 Lisinopril [Prinivil 10 mg Tablet] 10 mg PO DAILY #30 tablet 10/25/18 Pimecrolimus [Elidel] 1 applic TP .BID 10/25/18 History of Present Illness History of Present Illness: Per H&P by Dr. Boyd: LORETO JOSHI is a 68 year old female who presented to the ER with an acute history of generalized malaise, weakness, mental confusion/disorientation and fatigue beginning on the morning of her ER visit and gradually worsening through the day. Her malaise was also accompanied by mild intermittent dyspnea and a feeling of restlessness. She denies nausea, vomiting, diarrhea, abdominal pain, dysuria, fever, chills, cough, chest pain and headache. She admits several similar episodes in the past related to exacerbations of her COPD. She has not identified any aggravating or amelioratiing factors for her symptoms. In the ER she was found to be hypoxic and hypercapneic and thus her acute on chronic respiratory failure was defined and she was admitted for further treatment. Physical Exam Vital Signs: Temp Pulse Resp BP Pulse Ox 97.8 F 65 20 115/60 100 10/25/18 12:14 10/25/18 14:00 10/25/18 12:14 10/25/18 12:14 10/25/18 12:14 Intake & Output 10/24/18 10/25/1810/26/18 06:59 06:59 06:59 Intake Total 237 1017 592 Output Total 2175 1000 Balance 237 -1513 -408 Weight 134.6 kg 137.1 kg General appearance: PRESENT: no acute distress, morbidly obese, well-developed, well-nourished Head exam: PRESENT: atraumatic, normocephalic Eye exam: PRESENT: conjunctiva pink, EOMI, PERRLA. ABSENT: scleral icterus Ear exam: PRESENT: normal external ear exam Mouth exam: PRESENT: moist, tongue midline Neck exam: ABSENT: carotid bruit, JVD, lymphadenopathy, thyromegaly Respiratory exam: PRESENT: clear to auscultation emperatriz, decreased breath sounds - Secondary to body habitus and poor respiratory effort, symmetrical, unlabored, other - supplemental oxygen via NC. ABSENT: rales, rhonchi, wheezes Cardiovascular exam: PRESENT: RRR. ABSENT: diastolic murmur, rubs, systolic murmur Pulses: PRESENT: normal dorsalis pedis pul Vascular exam: PRESENT: normal capillary refill GI/Abdominal exam: PRESENT: normal bowel sounds, soft. ABSENT: distended, guarding, mass, organolmegaly, rebound, tenderness Rectal exam: PRESENT: deferred Gentrourinary exam: PRESENT: indwelling catheter Extremities exam: PRESENT: full ROM. ABSENT: calf tenderness, clubbing, pedal edema Neurological exam: PRESENT: alert, awake, oriented to person, oriented to place, oriented to time, oriented to situation, CN II-XII grossly intact. ABSENT: motor sensory deficit Psychiatric exam: PRESENT: appropriate affect, normal mood. ABSENT: homicidal ideation, suicidal ideation Skin exam: PRESENT: dry, intact, warm. ABSENT: cyanosis, rash Results Laboratory Results: 10/24/18 05:31 10/25/18 05:12 10/25/18 05:12 Sodium 133.3 L Potassium 4.9 Chloride 89 L Carbon Dioxide 39 H Anion Gap 5 BUN 112 H Creatinine 2.19 H Est GFR ( Amer) 27 L Est GFR (Non-Af Amer) 22 L Glucose 222 H Calcium 9.9 10/16/18 22:26 Troponin I < 0.012 Impressions: Head CT 10/16/18 21:57 IMPRESSION: Age-appropriate atrophy with minor small vessel ischemic change. Mucosal thickening of the ethmoid air cells and left sphenoid sinus. TECHNICAL DOCUMENTATION: Quality ID # [id number]: Final reports with documentation of one or more dose reduction techniques (e.g., Automated exposure control, adjustment of the mA and/or kV according to patient size, use of iterative reconstruction technique) copyright 2010 [employer]- All Rights Reserved Chest X-Ray 10/16/18 21:58 IMPRESSION: Cardiomegaly. Lungs are clear copyright 2010 [employer]- All Rights Reserved Renal Ultrasound 10/24/18 00:00 IMPRESSION: No acute findings. Obscured/decompressed urinary bladder. Qualifiers - * PATIENT BEING DISCHARGED WITH ANY OF THE FOLLOWING DIAGNOSIS: No, Heart Failure HF Pt being discharged on ACEI for LVEF less than 40%?: Yes HF Pt being discharged on ARBS for LVEF less than 40%?: No Reason(s) for not prescribing ARBS:: Not indicated HF Pt with Afib discharged with Warfarin?: No Reason(s) for not prescribing Warfarin:: Not indicated HF Pt discharged on evidence-based Beta Bharath:: No Reason(s) for not prescribing evidence-based Beta Bharath:: Not indicated Plan Discharge Plan: Discharge to [facility] where the patient is an established resident. Follow-up with primary care provider within 1 week. Recommend repeat BMP in 5-7 days. Follow-up with Dr. Day within 2 weeks. Follow-up with urologist within 4 weeks. Time Spent: Less than 30 Minutes
[2018-10-25 17:07] VITALS: BP 106/46
[2018-10-25] MEDS: INSULIN REG, HUMAN 100 UNIT/ML 3 ML VIAL (PYX) SUBCUT PRN (17:44)
[2018-10-25] MEDS ORDERED: FAMOTIDINE 20 MG TABLET PO SCH (22:00)
[2018-10-26] MEDS ORDERED: CETIRIZINE 5 MG TABLET PO SCH (08:00)
--- NOTE | 2018-11-05 13:03 | PDOC PROGRESS REPORT ---
Subjective Progress Note for:: 10/19/18 Subjective:: The same Reason For Visit: ACUTE ON CHRONIC RESPIRATORY FAILURE, HYPERCAPNIA Physical Exam Vital Signs: Temp Pulse Resp BP Pulse Ox 98.1 F 83 20 170/77 H 99 10/19/18 07:42 10/19/18 07:42 10/19/18 07:42 10/19/18 07:42 10/19/18 07:42 Intake & Output 10/18/18 10/19/18 10/20/18 06:59 06:59 06:59 Intake Total 3408 2410 Balance 3408 2410 Weight 132.2 kg 134.6 kg General appearance: PRESENT: no acute distress, cooperative, disheveled, morbidly obese Head exam: PRESENT: atraumatic, normocephalic Eye exam: PRESENT: conjunctiva pale, EOMI. ABSENT: nystagmus, scleral icterus Mouth exam: PRESENT: dry mucosa, neck supple, tongue midline Neck exam: ABSENT: carotid bruit, JVD, lymphadenopathy, thyromegaly, tracheal deviation, tracheostomy Respiratory exam: PRESENT: decreased breath sounds, prolonged expiratory phas, rales, rhonchi, unlabored. ABSENT: retraction, stridor, tachypnea Cardiovascular exam: PRESENT: RRR, +S1, +S2 Pulses: PRESENT: normal radial pulses GI/Abdominal exam: PRESENT: soft. ABSENT: tenderness Extremities exam: PRESENT: pedal edema. ABSENT: calf tenderness, clubbing, joint swelling Musculoskeletal exam: ABSENT: deformity, dislocation Neurological exam: PRESENT: awake Psychiatric exam: PRESENT: appropriate affect Skin exam: PRESENT: dry, warm Results Laboratory Results: 10/19/18 04:50 10/19/18 04:50 10/19/18 10/19/18 10/19/18 04:50 04:50 06:15 WBC 8.8 RBC 3.42 L Hgb 10.7 L Hct 31.5 L MCV 92 MCH 31.2 MCHC 33.9 RDW 13.9 Plt Count 207 Seg Neutrophils % 74.7 Lymphocytes % 14.5 Monocytes % 10.7 Eosinophils % 0.0 Basophils % 0.1 Absolute Neutrophils 6.6 Absolute Lymphocytes 1.3 Absolute Monocytes 0.9 Absolute Eosinophils 0.0 Absolute Basophils 0.0 Carbonic Acid 1.51 H HCO3/H2CO3 Ratio 23:1 ABG pH 7.47 H ABG pCO2 50.3 H ABG pO2 84.8 ABG HCO3 35.7 H ABG O2 Saturation 96.8 ABG Base Excess 10.5 FiO2 2L Sodium 145.1 H Potassium 3.5 L Chloride 99 Carbon Dioxide 39 H Anion Gap 7 BUN 47 H Creatinine 1.50 H Est GFR ( Amer) 42 L Est GFR (Non-Af Amer) 34 L Glucose 299 H Calcium 9.8 Magnesium 1.5 L Impressions: Head CT 10/16/18 21:57 IMPRESSION: Age-appropriate atrophy with minor small vessel ischemic change. Mucosal thickening of the ethmoid air cells and left sphenoid sinus. TECHNICAL DOCUMENTATION: Quality ID # [id number]: Final reports with documentation of one or more dose reduction techniques (e.g., Automated exposure control, adjustment of the mA and/or kV according to patient size, use of iterative reconstruction technique) copyright 2010 [employer]- All Rights Reserved Chest X-Ray 10/16/18 21:58 IMPRESSION: Cardiomegaly. Lungs are clear copyright 2010 [employer]- All Rights Reserved Assessment & Plan - Diagnosis (1) Acute on chronic respiratory failure Qualifiers: Respiratory failure complication: hypoxia and hypercapnia Qualified Code(s): J96.21 - Acute and chronic respiratory failure with hypoxia; J96.22 - Acute and chronic respiratory failure with hypercapnia Is this a current diagnosis for this admission?: Yes Plan: Toxemic hypercapnic may use CPAP/BiPAP from home (2) COPD (chronic obstructive pulmonary disease) Qualifiers: COPD type: unspecified COPD Qualified Code(s): J44.9 - Chronic obstructive pulmonary disease, unspecified Is this a current diagnosis for this admission?: Yes Plan: Continue current bronchodilator therapy (3) Obstructive sleep apnea Is this a current diagnosis for this admission?: Yes Plan: NIPPV (4) Morbid obesity with BMI of 45.0-49.9, adult Is this a current diagnosis for this admission?: Yes Plan: Nutritional consult consider bariatric surgeon
--- NOTE | 2018-11-05 13:05 | PDOC PROGRESS REPORT ---
Subjective Progress Note for:: 10/22/18 Subjective:: The same Reason For Visit: ACUTE ON CHRONIC RESPIRATORY FAILURE, HYPERCAPNIA Physical Exam Vital Signs: Temp Pulse Resp BP Pulse Ox 97.7 F 63 20 136/52 H 100 10/22/18 07:53 10/22/18 07:53 10/22/18 07:53 10/22/18 07:53 10/22/18 07:53 Intake & Output 10/21/18 10/22/18 10/23/18 06:59 06:59 06:59 Intake Total 887 2896 Output Total 0 0 Balance 887 2896 Weight 134.4 kg 134.5 kg General appearance: PRESENT: no acute distress, cooperative, disheveled, morbidly obese Head exam: PRESENT: atraumatic, normocephalic Eye exam: PRESENT: conjunctiva pale, EOMI. ABSENT: nystagmus, scleral icterus Mouth exam: PRESENT: dry mucosa, neck supple, tongue midline Neck exam: ABSENT: carotid bruit, JVD, lymphadenopathy, thyromegaly, tracheal deviation, tracheostomy Respiratory exam: PRESENT: decreased breath sounds, prolonged expiratory phas, rales, rhonchi, unlabored. ABSENT: retraction, stridor Cardiovascular exam: PRESENT: RRR, +S1, +S2 Pulses: PRESENT: normal radial pulses GI/Abdominal exam: PRESENT: soft. ABSENT: tenderness Extremities exam: PRESENT: pedal edema. ABSENT: calf tenderness, clubbing, joint swelling Musculoskeletal exam: ABSENT: deformity, dislocation Neurological exam: PRESENT: awake Psychiatric exam: PRESENT: appropriate affect Skin exam: PRESENT: dry, warm Results Laboratory Results: 10/22/18 05:39 10/22/18 05:39 10/22/18 10/22/18 05:39 05:39 WBC 11.6 H RBC 3.83 Hgb 11.5 L Hct 35.1 L MCV 92 MCH 30.0 MCHC 32.8 RDW 13.8 Plt Count 175 Seg Neutrophils % Not Reportable Lymphocytes % Not Reportable Monocytes % Not Reportable Eosinophils % Not Reportable Basophils % Not Reportable Absolute Neutrophils Not Reportable Absolute Lymphocytes Not Reportable Absolute Monocytes Not Reportable Absolute Eosinophils Not Reportable Absolute Basophils Not Reportable Sodium 138.5 Potassium 4.1 Chloride 92 L Carbon Dioxide 42 H* Anion Gap 5 BUN 68 H Creatinine 1.66 H Est GFR ( Amer) 37 L Est GFR (Non-Af Amer) 31 L Glucose 322 H Calcium 9.7 Magnesium 2.0 Total Bilirubin 0.3 AST 18 ALT 20 Alkaline Phosphatase 86 Total Protein 6.1 L Albumin 3.3 L 10/17/18 02:20 Blood Blood Culture - Final NO GROWTH IN 5 DAYS Impressions: Head CT 10/16/18 21:57 IMPRESSION: Age-appropriate atrophy with minor small vessel ischemic change. Mucosal thickening of the ethmoid air cells and left sphenoid sinus. TECHNICAL DOCUMENTATION: Quality ID # 436: Final reports with documentation of one or more dose reduction techniques (e.g., Automated exposure control, adjustment of the mA and/or kV according to patient size, use of iterative reconstruction technique) copyright 2010 [employer] All Rights Reserved Chest X-Ray 10/16/18 21:58 IMPRESSION: Cardiomegaly. Lungs are clear copyright 2010 [employer] All Rights Reserved Assessment & Plan - Diagnosis (1) Acute on chronic respiratory failure Qualifiers: Respiratory failure complication: hypoxia and hypercapnia Qualified Code(s): J96.21 - Acute and chronic respiratory failure with hypoxia; J96.22 - Acute and chronic respiratory failure with hypercapnia Is this a current diagnosis for this admission?: Yes Plan: Minimal improvement hypercapnic (2) Diabetes mellitus type 2 in obese Is this a current diagnosis for this admission?: Yes Plan: A1c 6.4 (3) Anemia in chronic kidney disease (CKD) Qualifiers: Chronic kidney disease stage: stage 4 (severe) Qualified Code(s): N18.4 - Chronic kidney disease, stage 4 (severe); D63.1 - Anemia in chronic kidney disease; D63.1 - Anemia in chronic kidney disease Is this a current diagnosis for this admission?: Yes Plan: Nephrology, consult pre-dialysis
--- NOTE | 2018-11-05 13:06 | PDOC PROGRESS REPORT ---
Subjective Progress Note for:: 10/24/18 Subjective:: Little better a little Reason For Visit: ACUTE ON CHRONIC RESPIRATORY FAILURE, HYPERCAPNIA Physical Exam Vital Signs: Temp Pulse Resp BP Pulse Ox 97.6 F 75 18 106/46 L 97 10/25/18 15:30 10/25/18 16:11 10/25/18 16:11 10/25/18 15:30 10/25/18 16:11 General appearance: PRESENT: no acute distress, cooperative, disheveled, morbidly obese Head exam: PRESENT: atraumatic, normocephalic Eye exam: PRESENT: conjunctiva pale, EOMI. ABSENT: nystagmus, scleral icterus Mouth exam: PRESENT: dry mucosa, neck supple, tongue midline Neck exam: ABSENT: carotid bruit, JVD, lymphadenopathy, thyromegaly, tracheal deviation, tracheostomy Respiratory exam: PRESENT: decreased breath sounds, prolonged expiratory phas, rales, rhonchi, unlabored. ABSENT: retraction, stridor, tachypnea Cardiovascular exam: PRESENT: RRR, +S1, +S2 Pulses: PRESENT: normal radial pulses GI/Abdominal exam: PRESENT: soft. ABSENT: tenderness Extremities exam: PRESENT: pedal edema. ABSENT: calf tenderness, clubbing, joint swelling Musculoskeletal exam: ABSENT: deformity, dislocation Neurological exam: PRESENT: awake Psychiatric exam: PRESENT: appropriate affect Skin exam: PRESENT: dry, warm Results Laboratory Results: 10/24/18 05:31 10/25/18 05:12 10/16/18 22:26 Troponin I < 0.012 Impressions: Head CT 10/16/18 21:57 IMPRESSION: Age-appropriate atrophy with minor small vessel ischemic change. Mucosal thickening of the ethmoid air cells and left sphenoid sinus. TECHNICAL DOCUMENTATION: Quality ID # 436: Final reports with documentation of one or more dose reduction techniques (e.g., Automated exposure control, adjustment of the mA and/or kV according to patient size, use of iterative reconstruction technique) copyright 2010 [employer]- All Rights Reserved Chest X-Ray 10/16/18 21:58 IMPRESSION: Cardiomegaly. Lungs are clear copyright 2010 [employer]- All Rights Reserved Renal Ultrasound 10/24/18 00:00 IMPRESSION: No acute findings. Obscured/decompressed urinary bladder. Assessment & Plan - Diagnosis (1) Acute on chronic respiratory failure Qualifiers: Respiratory failure complication: hypoxia and hypercapnia Qualified Code(s): J96.21 - Acute and chronic respiratory failure with hypoxia; J96.22 - Acute and chronic respiratory failure with hypercapnia Is this a current diagnosis for this admission?: Yes Plan: Minimal improvement hypercapnic (2) Diabetes mellitus type 2 in obese Is this a current diagnosis for this admission?: Yes Plan: A1c 6.4 (3) Anemia in chronic kidney disease (CKD) Qualifiers: Chronic kidney disease stage: stage 4 (severe) Qualified Code(s): N18.4 - Chronic kidney disease, stage 4 (severe); D63.1 - Anemia in chronic kidney disease; D63.1 - Anemia in chronic kidney disease Is this a current diagnosis for this admission?: Yes Plan: Nephrology, consult pre-dialysis
--- NOTE | 2018-11-05 13:08 | PDOC PROGRESS REPORT ---
Subjective Progress Note for:: 10/25/18 Subjective:: Little better a little Reason For Visit: ACUTE ON CHRONIC RESPIRATORY FAILURE, HYPERCAPNIA Physical Exam Vital Signs: Temp Pulse Resp BP Pulse Ox 97.6 F 75 18 106/46 L 97 10/25/18 15:30 10/25/18 16:11 10/25/18 16:11 10/25/18 15:30 10/25/18 16:11 General appearance: PRESENT: no acute distress, cooperative, disheveled, morbidly obese Head exam: PRESENT: atraumatic, normocephalic Eye exam: PRESENT: conjunctiva pale, EOMI. ABSENT: nystagmus, scleral icterus Mouth exam: PRESENT: dry mucosa, neck supple, tongue midline Neck exam: ABSENT: carotid bruit, JVD, lymphadenopathy, thyromegaly, tracheal deviation, tracheostomy Respiratory exam: PRESENT: decreased breath sounds, prolonged expiratory phas, rhonchi, unlabored, wheezes. ABSENT: retraction, stridor Cardiovascular exam: PRESENT: RRR, +S1, +S2 Pulses: PRESENT: normal radial pulses GI/Abdominal exam: PRESENT: soft. ABSENT: tenderness Extremities exam: PRESENT: pedal edema. ABSENT: calf tenderness, clubbing, joint swelling Musculoskeletal exam: ABSENT: deformity, dislocation Neurological exam: PRESENT: awake Psychiatric exam: PRESENT: appropriate affect Skin exam: PRESENT: dry, warm Results Laboratory Results: 10/24/18 05:31 10/25/18 05:12 10/16/18 22:26 Troponin I < 0.012 Impressions: Head CT 10/16/18 21:57 IMPRESSION: Age-appropriate atrophy with minor small vessel ischemic change. Mucosal thickening of the ethmoid air cells and left sphenoid sinus. TECHNICAL DOCUMENTATION: Quality ID # 436: Final reports with documentation of one or more dose reduction techniques (e.g., Automated exposure control, adjustment of the mA and/or kV according to patient size, use of iterative reconstruction technique) copyright 2011 [employer] All Rights Reserved Chest X-Ray 10/16/18 21:58 IMPRESSION: Cardiomegaly. Lungs are clear copyright 2010 [employer] All Rights Reserved Renal Ultrasound 10/24/18 00:00 IMPRESSION: No acute findings. Obscured/decompressed urinary bladder. Assessment & Plan - Diagnosis (1) Acute on chronic respiratory failure Qualifiers: Respiratory failure complication: hypoxia and hypercapnia Qualified Code(s): J96.21 - Acute and chronic respiratory failure with hypoxia; J96.22 - Acute and chronic respiratory failure with hypercapnia Is this a current diagnosis for this admission?: Yes Plan: Minimal improvement hypercapnic (2) Diabetes mellitus type 2 in obese Is this a current diagnosis for this admission?: Yes Plan: A1c 6.4 (3) Anemia in chronic kidney disease (CKD) Qualifiers: Chronic kidney disease stage: stage 4 (severe) Qualified Code(s): N18.4 - Chronic kidney disease, stage 4 (severe); D63.1 - Anemia in chronic kidney disease; D63.1 - Anemia in chronic kidney disease Is this a current diagnosis for this admission?: Yes Plan: Nephrology, consult pre-dialysis
== END 2018-10-25 20:05 | DRG 189 ==
LOC: ER 21:27 → EH 10-17 01:49 → 3W 10-17 04:10
PROVIDERS: ADMIT Emergency Medicine; ATTEND Emergency Medicine
DX: J96.22 Acute and chronic respiratory failure with hypercapnia (principal); J44.1 Chronic obstructive pulmonary disease with (acute) exacerbation; I13.0 Hypertensive heart and chronic kidney disease with heart failure and stage 1 through stage 4 chronic kidney disease, or unspecified chronic kidney disease; G93.40 Encephalopathy, unspecified; B37.49 Other urogenital candidiasis; I69.351 Hemiplegia and hemiparesis following cerebral infarction affecting right dominant side; Z68.43 Body mass index [BMI] 50.0-59.9, adult; N17.9 Acute kidney failure, unspecified; E11.22 Type 2 diabetes mellitus with diabetic chronic kidney disease; N18.3 Chronic kidney disease, stage 3 (moderate); I50.9 Heart failure, unspecified; I25.10 Atherosclerotic heart disease of native coronary artery without angina pectoris; I48.0 Paroxysmal atrial fibrillation; D63.1 Anemia in chronic kidney disease; N31.9 Neuromuscular dysfunction of bladder, unspecified; G47.33 Obstructive sleep apnea (adult) (pediatric); E03.9 Hypothyroidism, unspecified; E66.01 Morbid (severe) obesity due to excess calories; K59.00 Constipation, unspecified; Z99.81 Dependence on supplemental oxygen; Z87.891 Personal history of nicotine dependence; Z79.84 Long term (current) use of oral hypoglycemic drugs; Z79.82 Long term (current) use of aspirin; Z79.4 Long term (current) use of insulin; Z79.899 Other long term (current) drug therapy
CPT/HCPCS: 36415; 36600; 70450; 71045; 76775; 80048; 80053; 81001; 82803; 82962; 83036; 83735; 84484; 85025; 85027; 87040; 87086; 93005; 93010; 94660; 94667; 94799; 96374; 99285; J0696; J1644; J1815; J2405; J2920; J2930; J3370; J3490; J7030; J7512; J7620; S0119; S0164

== ENCOUNTER 2018-10-28 03:47 | Inpatient (IN) | payer MEDICARE, MEDICAID ==
--- NOTE | 2018-10-28 04:19 | ER Document Report ---
ED General - General TRAVEL OUTSIDE OF THE [place] IN LAST 30 DAYS: No - General Chief Complaint: Weakness Stated Complaint: ALTERED MENTAL STATUS Time Seen by Provider: 10/28/18 03:59 Notes: Patient is a 66-year-old female presents to the emergency department for generalized weakness and "I feel really tired." Patient was recently discharged from this facility on 10/25/2018 for acute on chronic respiratory failure, hypercapnia and hypoxia. Patient went to [facility] where she lives normally. Son is at patient's bedside states the last time he spoke to her was around 11 AM this morning. Son states she was speaking in normal sentences, "acting like her normal self." Per EMS staff at the nursing facility states the last time they spoke to the patient when she was at her baseline mental status was around 2000 hrs. this evening. Prior to arrival to the emergency room EMS is reporting that the patient alerted nursing staff saying that she did not feel right. Per EMS nursing staff stated the patient was calling them by different names and was unable to answer orientation questions. Upon my HPI patient is able to tell me her name, the current to date and that she "needs a new body." Patient has no pronator drift and is able to move bilateral lower extremities, patient has no Facial droop and speech is noted to be "slower than normal" per son. Patient's son is stating that she is acting "more tired than normal." Son states he is not acting like herself, she is acting as though she did on 10/17/2018 when she was admitted to this hospital. Son also stated that the Pt[facility], he stated he was told by staff she was treated for this at that time. Patient is denying any chest pain, shortness of breath, vomiting. Patient states her abdomen itches. Other than feeling tired and abdominal itching patient has no other complaints at this time. Past medical history: Congestive heart failure, chronic kidney disease, CVA, hypertension, anxiety, COPD, GERD, gout, hypothyroidism, depression, morbid obesity, diabetic Medications: Atorvastatin, Lasix, levothyroxine, Zofran, potassium, ranitidine, tramadol, trazodone, amlodipine, aspirin, Zyrtec, budesonide, iron, Pepcid, insulin, lisinopril, Carvedilol Allergies: Prednisone, Tuberculin (CASTILLO MITCHELL) - Related Data Allergies/Adverse Reactions: No Known Allergies Allergy (Verified 03/15/18 15:04) Past Medical History - General Information source: Transfer Record, [facility] Records - Social History Smoking Status: Former Smoker Lives with: [facility] Family History: CAD, DM, Hypertension - Past Medical History Cardiac Medical History: Reports: Hx Atrial Fibrillation - Paroxysmal, Hx Congestive Heart Failure, Hx Coronary Artery Disease, Hx Heart Attack, Hx Hypercholesterolemia, Hx Hypertension Denies: Hx DVT, Hx Pulmonary Embolism Pulmonary Medical History: Reports: Hx COPD, Hx Pneumonia, Hx Sleep Apnea Denies: Hx Asthma, Hx Bronchitis Neurological Medical History: Denies: Hx Cerebrovascular Accident, Hx Migraine, Hx Seizures Endocrine Medical History: Reports: Hx Diabetes Mellitus Type 2, Hx Hypothyroidism. Denies: Hx Diabetes Mellitus Type 1, Hx Hyperthyroidism Renal/ Medical History: Reports: Hx End Stage Renal Disease. Denies: Hx Peritoneal Dialysis Malignancy Medical History: Reports: Hx Cervical Cancer GI Medical History: Denies: Hx Cirrhosis, Hx Hepatitis Musculoskeletal Medical History: Reports Hx Arthritis, Reports Hx Gout Skin Medical History: Denies Hx Eczema, Denies Hx Psoriasis Psychiatric Medical History: Reports: Hx Depression Infectious Medical History: Reports: Hx C-Diff - History of severe persistent C. difficile while in [place] and underwent fec. Denies: Hx Hepatitis Past Surgical History: Reports: Hx Abdominal Surgery - umbilical hernia, Hx Appendectomy, Hx Section, Hx Cholecystectomy, Hx Herniorrhaphy, Other - Breast cyst, history of fecal transplant for C. difficile. Denies: Hx Hysterectomy - Immunizations Hx Diphtheria, Pertussis, Tetanus Vaccination: Yes Hx Pneumococcal Vaccination: 08/06/15 Review of Systems - Review of Systems Constitutional: See HPI EENT: No symptoms reported Cardiovascular: No symptoms reported Respiratory: No symptoms reported Gastrointestinal: No symptoms reported Genitourinary: No symptoms reported Female Genitourinary: No symptoms reported Musculoskeletal: No symptoms reported Skin: See HPI Hematologic/Lymphatic: No symptoms reported Neurological/Psychological: See HPI Physical Exam - Vital signs Vitals: Resp Pulse Ox 12 98 10/28/18 03:53 10/28/18 03:53 - Notes Notes: GENERAL: Morbidly obese, appears to be sleeping but is easily arousable with verbal stimuli. Able to tell staff her name and the current date. HEAD: Normocephalic, atraumatic. EYES: Pupils equal, round, and reactive to light. Extraocular movements intact. ENT: Oral mucosa moist, tongue midline. NECK: Full range of motion. Supple. Trachea midline. LUNGS: Clear to auscultation bilaterally, no wheezes, rales, or rhonchi. No respiratory distress. HEART: Regular rate and rhythm. No murmur ABDOMEN: Soft, non-tender. Non-distended. Bowel sounds present in all 4 quadrants. Adult diaper in place, Moreira in place. EXTREMITIES: Moves all 4 extremities spontaneously. normal radial and dorsalis pedis pulses bilaterally. Nonpitting edema noted bilateral lower extremities from the knee down. 4 out of 4 strength noted all 4 extremities equally. NEUROLOGICAL: Alert and oriented x3. Speech is not slurred at this time but according to son it is "slower than normal." Cranial nerves II through XII grossly intact. SKIN: Warm, dry, normal turgor. (CASTILLO MITCHELL) Course - Laboratory Result Diagrams: 10/28/18 04:55 10/28/18 05:55 - Re-evaluation Re-evalutation: 10/28/18 04:29 I have seen the patient in conjunction with the PA. Patient is 68-year-old female with recent discharge from the hospital. She is [facility] due to altered mental status that started tonight. She has had a [facility] the [facility] per the son's report. She is on CPAP at the [facility]. She has a history of hypercapnia. She also had a indwelling Moreira catheter. This was placed when she was discharged from the hospital. She herself is able to answer some questions but she is a bit slow with her speech. She does not have any obvious focal neurologic deficits. I suspect most likely altered mental status is related to infection based on her recent fever. We will replace her Moreira catheter with a indwelling Moreira catheter. We will do a chest x-ray. We will check venous blood gas to make sure she is not hyper. We will scan her head. Patient is hypercapnic she will be placed on BiPAP. Patient currently is vitally stable. Dictation of this chart was performed using voice recognition software; therefore, there may be some unintended grammatical errors. (KEV TIERNEY) 10/28/18 06:01 Patient's labs reveal no signs of leukocytosis she does have a normocytic anemia hemoglobin hematocrit 9.8 and 29.7 respectively. Her venous blood gas did reveal a pH of 7.36 and a PCO2 of 67.3. Patient's potassium was 5.6 with is no T wave elevations and her QTC is 411 on EKG. Urine does show moderate high leuk esterase with 48 WBCs and 1 squamous cell. Due to recent fever we will treat her for urinary tract infection. Chest x-ray shows no signs of pneumonia, pneumothorax, rib fracture. CT shows no signs of intracranial bleeding or CVA. Awaiting return phone call from hospitalist to admit the patient. 10/28/18 06:27 Discussed case with hospitalist Dr. Sanz who agrees to admit the patient to [facility]. Patient is currently on BiPAP at this time. Heart rate 60, blood pressure 128/49, respiratory rate 14, SPO2 98%, temperature Via [place]ira 97.9. (CASTILLO MITCHELL) - Vital Signs Vital signs: Temp Pulse Resp BP Pulse Ox 98.5 F 65 19 115/51 L 97 10/28/18 05:14 10/28/18 04:18 10/28/18 05:14 10/28/18 05:00 10/28/18 05:14 - Laboratory Laboratory results interpreted by me: 10/28/18 10/28/18 10/28/18 04:44 04:55 04:55 RBC 3.19 L Hgb 9.8 L Hct 29.7 L RDW 14.4 H Plt Count 138 L Monocytes % 13.1 H VBG pCO2 VBG HCO3 Potassium 5.6 H Chloride 97 L Carbon Dioxide 33 H BUN 138 H Creatinine 2.36 H Est GFR ( Amer) 25 L Est GFR (Non-Af Amer) 20 L Glucose 153 H Total Protein 5.3 L Albumin 3.2 L Urine Protein 30 H Urine Blood LARGE H Ur Leukocyte Esterase MODERATE H 10/28/18 10/28/18 04:55 05:55 RBC Hgb Hct RDW Plt Count Monocytes % VBG pCO2 67.3 H* VBG HCO3 37.3 H Potassium 5.4 H Chloride Carbon Dioxide BUN Creatinine Est GFR ( Amer) Est GFR (Non-Af Amer) Glucose Total Protein Albumin Urine Protein Urine Blood Ur Leukocyte Esterase Discharge - Discharge Admitting Provider: Hospitalist - Dr. Sanz Unit Admitted: IMCU - Discharge Clinical Impression: Hypercarbia Urinary tract infection Qualifiers: Urinary tract infection type: acute cystitis Hematuria presence: with hematuria Qualified Code(s): N30.01 - Acute cystitis with hematuria Altered mental status, unspecified Qualifiers: Altered mental status type: unspecified Qualified Code(s): R41.82 - Altered mental status, unspecified Condition: Stable Disposition: ADMITTED INPATIENT
[2018-10-28 05:02] LABS: APPEARANCE,URINE CLOUDY; BILIRUBIN,URINE NEGATIVE (NEGATIVE); COLOR,URINE YELLOW; GLUCOSE, URINE NEGATIVE (NEGATIVE); KETONES,URINE NEGATIVE (NEGATIVE); LEUKOCYTE ESTERASE,URINE MODERATE (NEGATIVE); NITRITE,URINE NEGATIVE (NEGATIVE); PROTEIN,URINE 30 mg/dL (NEGATIVE); URINE SPECIFIC GRAVITY 1.013; UROBILINOGEN,URINE NEGATIVE mg/dL (<2.0)
--- NOTE | 2018-10-28 05:04 | RADIOLOGY REPORT (SQ) ---
Chest single view on 10/28/2018 CLINICAL INDICATION: Shortness of breath COMPARISON: 10/16/2018 FINDINGS: A few overlying wires are noted. Cardiomegaly is noted. The lungs are clear. Pulmonary vascularity is within normal limits. No bony abnormality is noted. IMPRESSION: No acute disease.
[2018-10-28 05:06] LABS: ABSOLUTE BASOPHILS # (AUTO) 0.1 10^3/uL (0.0-0.2); ABSOLUTE EOSINOPHILS # (AUTO) 0.3 10^3/uL (0.0-0.6); ABSOLUTE LYMPHOCYTES (AUTO) 2.3 10^3/uL (0.5-4.7); ABSOLUTE MONOCYTES (AUTO) 1.3 10^3/uL (0.1-1.4); ABSOLUTE NEUT (AUTO) 6.4 10^3/uL (1.7-8.2); BASOPHILS % (AUTO) 0.5 % (0-2); EOSINOPHILS % (AUTO) 2.5 % (0-6); HEMATOCRIT 29.7 % (36.0-47.0); HEMOGLOBIN 9.8 g/dL (12.0-15.5); LYMPHOCYTES % (AUTO) 21.9 % (13-45); MEAN CORPUSCULAR HEMOGLOBIN 30.8 pg (27.0-33.4); MEAN CORPUSCULAR VOLUME 93 fl (80-97); MONOCYTES % (AUTO) 13.1 % (3-13); PLATELET COUNT 138 10^3/uL (150-450); RED BLOOD COUNT 3.19 10^6/uL (3.72-5.28); RED CELL DISTRIBUTION WIDTH 14.4 % (11.5-14.0); TOTAL CELLS COUNTED % (AUTO) 100 %; VENOUS BLOOD BASE EXCESS 9.8 mmol/L; VENOUS BLOOD HCO3 37.3 mmol/L (20-32); VENOUS BLOOD PH 7.36 (7.30-7.42); WHITE BLOOD COUNT 10.3 10^3/uL (4.0-10.5)
[2018-10-28 05:09] LABS: VENOUS BLOOD PCO2 67.3 mmHg (35-63)
[2018-10-28] MEDS ORDERED: CEFTRIAXONE 1 GM/D5W RTU 1 GM/50 ML RTUPB IV ONE (05:25)
[2018-10-28 05:28] LABS: ALANINE AMINOTRANSFERASE 23 U/L (9-52); ALBUMIN 3.2 g/dL (3.5-5.0); ALKALINE PHOSPHATASE 96 U/L (38-126); ANION GAP 7 (5-19); ASPARTATE AMINO TRANSFERASE 17 U/L (14-36); BILIRUBIN,DIRECT 0.3 mg/dL (0.0-0.4); BILIRUBIN,TOTAL 0.4 mg/dL (0.2-1.3); CALCIUM 9.5 mg/dL (8.4-10.2); CARBON DIOXIDE 33 mmol/L (22-30); CHLORIDE 97 mmol/L (98-107); GLUCOSE 153 mg/dL (75-110); POTASSIUM 5.6 mmol/L (3.6-5.0); SODIUM 137.4 mmol/L (137-145); TOTAL PROTEIN 5.3 g/dL (6.3-8.2)
--- NOTE | 2018-10-28 05:34 | RADIOLOGY REPORT (SQ) ---
EXAM DESCRIPTION: CT HEAD WITHOUT IV CONTRAST COMPLETED DATE/TME: 10/28/2018 04:00 CLINICAL HISTORY: 68 years Female, altered mental status COMPARISON:10/16/2018 TECHNIQUE: No contrast. Coronal and sagittal reformat. This exam was performed according to our departmental dose-optimization program, which includes automated exposure control, adjustment of the mA and/or kV according to patient size and/or use of iterative reconstruction technique. FINDINGS: No hemorrhage or infarct. No mass, mass effect, or midline shift. Atherosclerosis. Brain and extra-axial structures appear otherwise intact. IMPRESSION: No acute findings.
[2018-10-28 05:47] LABS: BLOOD UREA NITROGEN 138 mg/dL (7-20)
--- NOTE | 2018-10-28 07:41 | EKG REPORT ---
SEVERITY:- NORMAL ECG - SINUS RHYTHM : Confirmed by: Serg Javier MD 28-Oct-2018 07:40:29
[2018-10-28] MEDS ORDERED: DOCUSATE SODIUM 100 MG CAPSULE PO PRN (08:28)
[2018-10-28] MEDS ORDERED: ACETAMINOPHEN 325 MG TABLET PO PRN (08:28)
[2018-10-28] MEDS ORDERED: ONDANSETRON 4 MG TAB.RAPDIS PO PRN ×2 (08:28→09:02)
[2018-10-28] MEDS ORDERED: LEVALBUTEROL HCL NEB 1.25 MG/3 ML AMPUL NEB PRN (08:28)
[2018-10-28] MEDS ORDERED: PHENOL PO PRN (08:46)
[2018-10-28] MEDS ORDERED: (PENDING PHARMACY ID) (Ondansetron Hcl [Zofran 4 Mg Tablet] 4 MG) PO PRN (08:46)
[2018-10-28] MEDS ORDERED: PHENOL/SODIUM PHENOLATE 100 SPRAY/177 ML BOTTLE PO PRN (09:03)
[2018-10-28] MEDS ORDERED: PIMECROLIMUS TOP SCH ×2 (09:15→10:00)
[2018-10-28] MEDS ORDERED: LIFITEGRAST OU SCH ×2 (09:15→10:00)
[2018-10-28] MEDS ORDERED: CHOLECALCIFEROL (D3) 1,000 UNIT TABLET PO SCH (10:00)
[2018-10-28] MEDS ORDERED: ALBUTEROL SULFATE 0.083% NEB 2.5 MG/3 ML AMPUL NEB SCH (11:00)
[2018-10-28] MEDS ORDERED: IPRATROPIUM/ALBUTEROL 0.5-2.5 MG/3 ML AMPUL NEB PRN (11:23)
--- NOTE | 2018-10-28 11:41 | PDOC H&P ---
History of Present Illness Admission Date/PCP: 10/28/18 06:21 RAO PAGE MD Patient complains of: The patient was referred to the hospital from [facility]. She was just discharged on October 25. Confusion and disorientation were the reasons that she was transferred to the emergency department. History of Present Illness: LORETO JOSHI is a 68 year old female who was just discharged after an 8-day stay here at [facility]. This presentation appears to be similar. I did ask the patient and she feels that the transfer was because of some weakness and confusion. She is on BiPAP but appears to be breathing comfortable. She denies any nausea, vomiting and reports occasional diarrhea. She stated this started approximately 2 days ago. There is a question of neurogenic bladder that is worsening her already significant chronic kidney disease. The patient states that the catheter at the shelter was never removed however records from the emergency department suggest otherwise. She did answer questions appropriately. She was somewhat somnolent but responded to verbal stimulus. She does exhibit fasciculations. Past Medical History Cardiac Medical History: Reports: Atrial Fibrillation - Paroxysmal, Congestive Heart Failure, Coronary Artery Disease, Myocardial Infarction, Hyperlipidema, Hypertension Denies: DVT, Pulmonary Embolism Pulmonary Medical History: Reports: Chronic Obstructive Pulmonary Disease (COPD), Pneumonia, Sleep Apnea Denies: Asthma, Bronchitis Neurological Medical History: Denies: Migraine, Seizures Endocrine Medical History: Reports: Diabetes Mellitus Type 2, Hypothyroidism Denies: Diabetes Mellitus Type 1, Hyperthyroidism Renal/ Medical History: Reports: End Stage Renal Disease Malignancy Medical History: Reports: Cervical Cancer GI Medical History: Denies: Cirrhosis, Hepatitis Musculoskeltal Medical History: Reports: Arthritis, Gout Skin Medical History: Denies: Eczema, Psoriasis Psychiatric Medical History: Reports: Depression Hematology: Reports: Anemia Denies: Bleeding Tendencies Infectious Medical History: Reports: Clostridium Difficile - History of severe persistent C. difficile while in [place] and underwent fec Past Surgical History Past Surgical History: Reports: Appendectomy, Section, Cholecystectomy, Herniorrhaphy, Other - Breast cyst, history of fecal transplant for C. difficile Denies: Hysterectomy Social History Lives with: [facility] Smoking Status: Former Smoker Frequency of Alcohol Use: None Hx Recreational Drug Use: No Drugs: None Hx Prescription Drug Abuse: No - Advance Directive Resuscitation Status: Do Not Resuscitate - The patient was very specific today. She told me that she does not want hemodialysis. She does not want to be intubated or resuscitated. She stated that when it is my time it is my time. Surrogate healthcare decision maker:: I cannot find any documentation. Her son does work here at [facility] and I believe he is the next of kin designated to make decisions. Family History Family History: CAD, DM, Hypertension, Malignancy, Thyroid Disfunction Parental Family History Reviewed: Yes Children Family History Reviewed: Yes Sibling(s) Family History Reviewed.: Yes Medication/Allergy Home Medications: Atorvastatin Calcium [Lipitor 20 mg Tablet] 20 mg PO QHS 10/17/18 Carvedilol [Coreg 12.5 mg Tablet] 12.5 mg PO Q12 10/17/18 Cholecalciferol (Vitamin D3) [Vitamin D3 5000 unit Capsule] 5,000 unit PO QAM 10/17/18 Clobetasol Propionate [Temovate Solution] 1 applic TOP QHS MDD SCALP & EAR LOBES 10/17/18 Cran/Vitc/Mannose/Fos/Bromeln [Uti-Stat Liquid] 30 ml PO QAM 10/17/18 Docusate Sodium [Colace 100 mg Capsule] 100 mg PO QAM 10/17/18 Fluticasone Propionate [Flonase Nasal Buhl 50 Mcg/Buhl 16 gm] 2 spray NASL QAM 10/17/18 Furosemide [Lasix 80 mg Tablet] 80 mg PO BID 10/17/18 Levothyroxine Sodium 88 mcg PO Q6AM 10/17/18 Lifitegrast [Xiidra] 1 drop OU BID 10/17/18 Ondansetron HCl [Zofran 4 mg Tablet] 4 mg PO Q8HP PRN 10/17/18 Phenol [Chloraseptic] 2 sprays PO BIDP PRN 10/17/18 Pimecrolimus [Elidel] 1 applic TOP BID MDD FACE & EARS FOR FLAKY SKIN 10/17/18 Potassium Chloride [K-Tab ER] 20 meq PO BID 10/17/18 Pregabalin [Lyrica 100 mg Capsule] 100 mg PO Q8 10/17/18 Ranitidine HCl [Zantac 150 mg Tablet] 150 mg PO BID 10/17/18 Sodium Chloride [Saline Mist] 1 spray NASL ACHS 10/17/18 Tramadol HCl [Ultram 50 mg Tablet] 50 mg PO Q4HP PRN 10/17/18 Trazodone HCl [Desyrel 50 mg Tablet] 25 mg PO QHS 10/17/18 Amlodipine Besylate [Norvasc 5 mg Tablet] 5 mg PO DAILY #30 tablet 10/25/18 Aspirin [Ecotrin 81 mg EC Tablet] 81 mg PO DAILY #30 tabec 10/25/18 Budesonide [Pulmicort Neb 0.5 mg/2 ml Ampul] 0.5 mg NEB RTQ12 #60 ampul.neb 10/25/18 Cetirizine HCl [Zyrtec 5 mg Tablet] 5 mg PO QAM #30 tablet 10/25/18 Cholecalciferol (Vitamin D3) [Vitamin D3 1000 Unit Tablet] 5,000 unit PO DAILY tablet 10/25/18 Famotidine [Pepcid 20 mg Tablet] 20 mg PO QHS #30 tablet 10/25/18 Ferrous Sulfate [Feosol 325 mg Tablet] 325 mg PO DAILY #0 tablet 10/25/18 Insulin Glargine,Hum.rec.anlog [Lantus Insulin 100 Unit/1 ml 10 ml] 60 unit SUBCUT BID #1 unit 10/25/18 Insulin Regular, Human [Humulin R (Reg) Insulin 100 unit/mL] 0 - 12 unit SUBCUT ACHSP PRN #1 vial 10/25/18 Lisinopril [Prinivil 10 mg Tablet] 10 mg PO DAILY #30 tablet 10/25/18 Pimecrolimus [Elidel] 1 applic TP .BID 10/25/18 Allergies/Adverse Reactions: No Known Allergies Allergy (Verified 03/15/18 15:04) Review of Systems Constitutional: PRESENT: as per HPI, weakness. ABSENT: fever(s), headache(s), night sweats Nose, Mouth, and Throat: ABSENT: mouth pain, sore throat Cardiovascular: PRESENT: dyspnea on exertion, edema. ABSENT: chest pain, palpitations Respiratory: PRESENT: dyspnea. ABSENT: hemoptysis Gastrointestinal: PRESENT: abdominal pain - This is actually itchy and painful irritation both sides of the abdomen lateral aspect, diarrhea, other. ABSENT: heartburn, hematemesis, melena, nausea, vomiting Genitourinary: PRESENT: difficulty urinating - There was concern at the last admission for a neurogenic bladder Musculoskeletal: PRESENT: muscle weakness, other - Fasciculations Integumentary: PRESENT: pruritus - As above, wounds - Stage II pressure ulcer needle cleft and small area left buttock. These are present on admission. Neurological: ABSENT: abnormal speech, convulsions, syncope Psychiatric: ABSENT: anxiety, depression Endocrine: ABSENT: cold intolerance, heat intolerance, polydipsia, polyuria Hematologic/Lymphatic: ABSENT: easy bleeding, easy bruising Allergic/Immunologic: ABSENT: seasonal rhinorrhea Physical Exam Vital Signs: Temp Pulse Resp BP Pulse Ox 98.2 F 65 20 139/47 H 98 10/28/18 10:30 10/28/18 10:30 10/28/18 10:30 10/28/18 10:30 10/28/18 10:30 Intake & Output 10/27/18 10/28/18 10/29/18 06:59 06:59 06:59 Intake Total 50 Output Total 570 Balance 50 -570 General appearance: PRESENT: cooperative, mild distress, morbidly obese Head exam: PRESENT: atraumatic, normocephalic, other - BiPAP in place Eye exam: PRESENT: conjunctiva pale. ABSENT: scleral icterus Ear exam: PRESENT: normal external ear exam Mouth exam: PRESENT: other - BiPAP in place unable to assess Teeth exam: PRESENT: other - BiPAP in place unable to assess Throat exam: PRESENT: other - BiPAP in place unable to assess Neck exam: ABSENT: carotid bruit, lymphadenopathy, tenderness Respiratory exam: PRESENT: decreased breath sounds - Possibly due to body habitus, prolonged expiratory phas. ABSENT: rales, rhonchi, wheezes Cardiovascular exam: PRESENT: RRR, +S1, +S2 GI/Abdominal exam: PRESENT: distended - Very large protuberant abdomen, normal bowel sounds, soft. ABSENT: guarding, tenderness - See integument below Rectal exam: PRESENT: deferred Gentrourinary exam: PRESENT: indwelling catheter Extremities exam: PRESENT: pedal edema Neurological exam: PRESENT: awake, oriented to person, oriented to place, oriented to situation, CN II-XII grossly intact, other - Fasciculations noted upper extremities. ABSENT: alert - Somewhat sleepy this morning Psychiatric exam: PRESENT: flat affect Skin exam: PRESENT: erythema - Lower extremities consistent with chronic venous insufficiency, other - Stage II pressure ulcer in the cleft as well as a small stage II lesion on the left buttock. Foam dressing was in place. Results Laboratory Results: 10/28/18 04:55 10/28/18 05:55 10/28/18 10/28/18 10/28/18 04:44 04:55 04:55 WBC 10.3 RBC 3.19 L Hgb 9.8 L Hct 29.7 L MCV 93 MCH 30.8 MCHC 33.0 RDW 14.4 H Plt Count 138 L Seg Neutrophils % 62.0 Lymphocytes % 21.9 Monocytes % 13.1 H Eosinophils % 2.5 Basophils % 0.5 Absolute Neutrophils 6.4 Absolute Lymphocytes 2.3 Absolute Monocytes 1.3 Absolute Eosinophils 0.3 Absolute Basophils 0.1 VBG pH VBG pCO2 VBG HCO3 VBG Base Excess Sodium 137.4 Potassium 5.6 H Chloride 97 L Carbon Dioxide 33 H Anion Gap 7 BUN 138 H Creatinine 2.36 H Est GFR ( Amer) 25 L Est GFR (Non-Af Amer) 20 L Glucose 153 H Calcium 9.5 Total Bilirubin 0.4 AST 17 ALT 23 Alkaline Phosphatase 96 Total Protein 5.3 L Albumin 3.2 L Urine Color YELLOW Urine Appearance CLOUDY Urine pH 5.0 Ur Specific [place] 1.013 Urine Protein 30 H Urine Glucose (UA) NEGATIVE Urine Ketones NEGATIVE Urine Blood LARGE H Urine Nitrite NEGATIVE Ur Leukocyte Esterase MODERATE H Urine WBC (Auto) 48 Urine RBC (Auto) >182 10/28/18 10/28/18 04:55 05:55 WBC RBC Hgb Hct MCV MCH MCHC RDW Plt Count Seg Neutrophils % Lymphocytes % Monocytes % Eosinophils % Basophils % Absolute Neutrophils Absolute Lymphocytes Absolute Monocytes Absolute Eosinophils Absolute Basophils VBG pH 7.36 VBG pCO2 67.3 H* VBG HCO3 37.3 H VBG Base Excess 9.8 Sodium Potassium 5.4 H Chloride Carbon Dioxide Anion Gap BUN Creatinine Est GFR ( Amer) Est GFR (Non-Af Amer) Glucose Calcium Total Bilirubin AST ALT Alkaline Phosphatase Total Protein Albumin Urine Color Urine Appearance Urine pH Ur Specific [place] Urine Protein Urine Glucose (UA) Urine Ketones Urine Blood Urine Nitrite Ur Leukocyte Esterase Urine WBC (Auto) Urine RBC (Auto) 10/28/18 04:55 Troponin I 0.038 In addition, white blood cell count normal. Hemoglobin 9.8 and platelet count 138. Serum chemistries sodium 137 potassium 5.6 (repeat specimen 5.4) chloride 97 CO2 33 BUN 138 (up from 112 2 days ago) creatinine 2.36 (up from 2.192 days ago). Glucose was 153, calcium 9.5, albumin 3.2 Impressions: Chest X-Ray 10/28/18 04:00 IMPRESSION: No acute disease. Head CT 10/28/18 04:00 IMPRESSION: No acute findings. Assessment & Plan - Diagnosis (1) Acute encephalopathy Is this a current diagnosis for this admission?: Yes Plan: The patient was transferred because of confusion. She did in fact answer most of the questions appropriately. Her information was reliable. I am not sure if any of this was related to a high PCO2 that has improved with BiPAP. We will continue to monitor for any cognitive impairment. (2) Renal failure Qualifiers: Renal failure chronicity: chronic Chronic kidney disease stage: stage 4 (severe) Qualified Code(s): N18.4 - Chronic kidney disease, stage 4 (severe) Is this a current diagnosis for this admission?: Yes Plan: Based on the laboratory studies from her recent hospitalization the renal failure seems to be slowly progressing. She was very clear about not wanting to go on hemodialysis. I will continue to monitor her function while adjusting her medications accordingly. (3) Chronic uremia syndrome Is this a current diagnosis for this admission?: Yes Plan: It is most likely that her fasciculations are related to her uremia. The macular lesions on the sides of her abdomen, that are extremely pruritic, may be related to the uremia as well. I will investigate other treatments that might be beneficial for the patient. (4) Anemia in chronic kidney disease (CKD) Qualifiers: Chronic kidney disease stage: stage 4 (severe) Qualified Code(s): N18.4 - Chronic kidney disease, stage 4 (severe); D63.1 - Anemia in chronic kidney disease; D63.1 - Anemia in chronic kidney disease Is this a current diagnosis for this admission?: Yes Plan: Do not believe the patient is on erythropoietin but she is on iron supplement. Continue to monitor hemoglobin. (5) Acute on chronic respiratory failure Qualifiers: Respiratory failure complication: hypoxia and hypercapnia Qualified Code(s): J96.21 - Acute and chronic respiratory failure with hypoxia; J96.22 - Acute and chronic respiratory failure with hypercapnia Is this a current diagnosis for this admission?: Yes Plan: The patient's PCO2 was elevated on admission. She states she is feeling better with the BiPAP. We will continue the BiPAP and monitor her progress. (6) Physical deconditioning Is this a current diagnosis for this admission?: Yes Plan: The patient is markedly weak. I have asked physical therapy to assess and work with the patient. - Time Time Spent: 50 to 70 Minutes Medications reviewed and adjusted accordingly: Yes Anticipated discharge: SNF - Inpatient Certification Based on my medical assessment, after consideration of the patient's comorbidities, presenting symptoms, or acuity I expect that the services needed warrant INPATIENT care.: Yes I certify that my determination is in accordance with my understanding of Medicare's requirements for reasonable and necessary INPATIENT services [42 CFR 412.3e].: Yes Medical Necessity: Failure to Improve With Outpatient Therapy, Need For Continuous Telemetry Monitoring, Need for Nebulizer Therapy and Monitoring of Response, Risk of Complication if Not Cared For in Hospital Post Hospital Care: D/C [employer] Documentation
[2018-10-28] MEDS ORDERED: GLUCAGON,HUMAN RECOMB 1 MG INJ IM PRN (15:00)
[2018-10-28] MEDS ORDERED: DEXTROSE 40% GEL 15 GM TUBE X 2 PO PRN (15:00)
[2018-10-28] MEDS ORDERED: DEXTROSE 40% GEL 15 GM TUBE PO PRN (15:00)
[2018-10-28] MEDS ORDERED: DEXTROSE 50%-WATER SYRINGE 12.5 GM/25 ML DOSE IV PRN (15:00)
[2018-10-28] MEDS ORDERED: DEXTROSE 50%-WATER SYRINGE 25 GM/50 ML DOSE IV PRN (15:00)
[2018-10-28] MEDS: INSULIN GLARGINE,HUM.REC.ANLOG 1,000 UNIT/10 ML UNIT SUBCUT SCH ×2 (15:21→17:29)
[2018-10-28] MEDS: CARVEDILOL 12.5 MG TABLET PO SCH ×2 (15:23→22:01)
[2018-10-28] MEDS: CHOLECALCIFEROL (D3) 1,000 UNIT TABLET PO SCH (15:24)
[2018-10-28] MEDS: AMLODIPINE BESYLATE 5 MG TABLET PO SCH (15:27)
[2018-10-28] MEDS: PREGABALIN 100 MG CAPSULE PO SCH ×2 (15:27→22:02)
[2018-10-28] MEDS: ASPIRIN 81 MG TABLET, ENT COATED PO SCH (15:28)
[2018-10-28] MEDS: FERROUS SULFATE 325 MG TABLET PO SCH (15:28)
[2018-10-28] MEDS: FUROSEMIDE 80 MG TABLET PO SCH ×2 (15:28→17:09)
[2018-10-28] MEDS ORDERED: IPRATROPIUM/ALBUTEROL 0.5-2.5 MG/3 ML AMPUL NEB SCH (16:00)
[2018-10-28] MEDS: INSULIN REG, HUMAN 100 UNIT/ML 3 ML VIAL (PYX) SUBCUT PRN (17:29)
[2018-10-28] MEDS: PANTOT AC/MIN OIL/PET HY-PHL OINT 50 GM TOP SCH (17:30)
[2018-10-28] MEDS ORDERED: BUDESONIDE NEB 0.5 MG/2 ML AMPUL NEB SCH (20:00)
[2018-10-28] MEDS: FAMOTIDINE 20 MG TABLET PO SCH (22:02)
[2018-10-28] MEDS: TRAMADOL HCL 50 MG TABLET PO PRN (22:02)
[2018-10-28] MEDS: ATORVASTATIN CALCIUM 20 MG TABLET PO SCH (22:03)
[2018-10-28] MEDS: TRAZODONE HCL 50 MG TABLET PO SCH (22:03)
[2018-10-29] MEDS: PREGABALIN 100 MG CAPSULE PO SCH ×3 (05:39→21:26)
[2018-10-29] MEDS: LEVOTHYROXINE SODIUM 0.088 MG TABLET PO SCH (05:40)
[2018-10-29 06:30] LABS: ABSOLUTE BASOPHILS # (AUTO) 0.1 10^3/uL (0.0-0.2); ABSOLUTE EOSINOPHILS # (AUTO) 0.3 10^3/uL (0.0-0.6); ABSOLUTE MONOCYTES (AUTO) 1.2 10^3/uL (0.1-1.4); ABSOLUTE NEUT (AUTO) 6.4 10^3/uL (1.7-8.2); BASOPHILS % (AUTO) 0.6 % (0-2); EOSINOPHILS % (AUTO) 3.4 % (0-6); HEMATOCRIT 29.7 % (36.0-47.0); HEMOGLOBIN 9.7 g/dL (12.0-15.5); LYMPHOCYTES % (AUTO) 20.3 % (13-45); MEAN CORPUSCULAR HEMOGLOBIN 30.2 pg (27.0-33.4); MEAN CORPUSCULAR HGB CONC 32.8 g/dL (32.0-36.0); MEAN CORPUSCULAR VOLUME 92 fl (80-97); MONOCYTES % (AUTO) 11.6 % (3-13); PLATELET COUNT 119 10^3/uL (150-450); RED BLOOD COUNT 3.23 10^6/uL (3.72-5.28); RED CELL DISTRIBUTION WIDTH 14.3 % (11.5-14.0); SEGMENTED NEUTROPHILS % (AUTO) 64.1 % (42-78); TOTAL CELLS COUNTED % (AUTO) 100 %
[2018-10-29 06:52] LABS: ALBUMIN 3.2 g/dL (3.5-5.0); ANION GAP 7 (5-19); CALCIUM 9.6 mg/dL (8.4-10.2); CARBON DIOXIDE 32 mmol/L (22-30); CHLORIDE 100 mmol/L (98-107); GLUCOSE 94 mg/dL (75-110); PHOSPHORUS 5.2 mg/dL (2.5-4.5); POTASSIUM 5.4 mmol/L (3.6-5.0); SODIUM 138.5 mmol/L (137-145)
[2018-10-29 07:05] LABS: BLOOD UREA NITROGEN 127 mg/dL (7-20)
[2018-10-29] MEDS ORDERED: DOCUSATE SODIUM 100 MG CAPSULE PO SCH (08:00)
[2018-10-29] MEDS: INSULIN GLARGINE,HUM.REC.ANLOG 1,000 UNIT/10 ML UNIT SUBCUT SCH ×2 (09:23→17:17)
[2018-10-29] MEDS: CARVEDILOL 12.5 MG TABLET PO SCH ×2 (09:23→22:45)
[2018-10-29] MEDS: CHOLECALCIFEROL (D3) 1,000 UNIT TABLET PO SCH (09:24)
[2018-10-29] MEDS: ASPIRIN 81 MG TABLET, ENT COATED PO SCH (09:25)
[2018-10-29] MEDS: PANTOT AC/MIN OIL/PET HY-PHL OINT 50 GM TOP SCH (09:25)
[2018-10-29] MEDS: FERROUS SULFATE 325 MG TABLET PO SCH (09:25)
[2018-10-29] MEDS: CETIRIZINE 5 MG TABLET PO SCH (09:25)
[2018-10-29] MEDS: FUROSEMIDE 80 MG TABLET PO SCH ×2 (09:25→17:17)
[2018-10-29] MEDS: FLUTICASONE NASAL SPRAY 50 MCG/SPRY 120 SPRAY/16 GM NASL SCH (09:26)
[2018-10-29] MEDS: AMLODIPINE BESYLATE 5 MG TABLET PO SCH (09:28)
--- NOTE | 2018-10-29 15:57 | PDOC PROGRESS REPORT ---
Subjective Progress Note for:: 10/29/18 Subjective:: The patient is actually sitting on the edge of the bed for lunch. She still exhibits fasciculations. She is quite coherent. Reason For Visit: ACUTE ON CHRONIC RENAL FAILURE,ACUTE ON CHRONIC Physical Exam Vital Signs: Temp Pulse Resp BP Pulse Ox 99.0 F 74 18 111/84 93 10/29/18 11:42 10/29/18 11:42 10/29/18 11:42 10/29/18 11:42 10/29/18 11:42 Intake & Output 10/28/18 10/29/18 10/30/18 06:59 06:59 06:59 Intake Total 50 1367 350 Output Total 2920 900 Balance 50 -1553 -550 Weight 139.7 kg General appearance: PRESENT: no acute distress, cooperative, morbidly obese, well-developed Mouth exam: PRESENT: moist, tongue midline Respiratory exam: PRESENT: clear to auscultation emperatriz - Breath sounds are decreased due to body habitus, symmetrical, unlabored. ABSENT: rales, wheezes Cardiovascular exam: PRESENT: RRR, +S1, +S2 GI/Abdominal exam: PRESENT: distended - Very large protuberant abdomen, normal b owel sounds, soft. ABSENT: tenderness Extremities exam: PRESENT: pedal edema Neurological exam: PRESENT: alert, awake, oriented to person, oriented to place, oriented to time, oriented to situation, CN II-XII grossly intact, other - Fasciculations Psychiatric exam: PRESENT: appropriate affect, normal mood. ABSENT: agitated, anxious Focused psych exam: ABSENT: restlessness Results Laboratory Results: 10/29/18 05:39 10/29/18 05:39 10/29/18 10/29/18 05:39 05:39 WBC 10.0 RBC 3.23 L Hgb 9.7 L Hct 29.7 L MCV 92 MCH 30.2 MCHC 32.8 RDW 14.3 H Plt Count 119 L Seg Neutrophils % 64.1 Lymphocytes % 20.3 Monocytes % 11.6 Eosinophils % 3.4 Basophils % 0.6 Absolute Neutrophils 6.4 Absolute Lymphocytes 2.0 Absolute Monocytes 1.2 Absolute Eosinophils 0.3 Absolute Basophils 0.1 Sodium 138.5 Potassium 5.4 H Chloride 100 Carbon Dioxide 32 H Anion Gap 7 BUN 127 H Creatinine 2.23 H Est GFR ( Amer) 26 L Est GFR (Non-Af Amer) 22 L Glucose 94 Calcium 9.6 Phosphorus 5.2 H Magnesium 3.2 H Albumin 3.2 L 10/28/18 04:55 Troponin I 0.038 Impressions: Chest X-Ray 10/28/18 04:00 IMPRESSION: No acute disease. Head CT 10/28/18 04:00 IMPRESSION: No acute findings. Assessment & Plan - Diagnosis (1) Acute encephalopathy Is this a current diagnosis for this admission?: Yes Plan: Appears to have resolved (2) Renal failure Qualifiers: Renal failure chronicity: chronic Chronic kidney disease stage: stage 4 (severe) Qualified Code(s): N18.4 - Chronic kidney disease, stage 4 (severe) Is this a current diagnosis for this admission?: Yes Plan: This is a chronic condition. Her BUN and creatinine seem to be improving slowly. Continue current regimen. (3) Chronic uremia syndrome Is this a current diagnosis for this admission?: Yes (4) Anemia in chronic kidney disease (CKD) Qualifiers: Chronic kidney disease stage: stage 4 (severe) Qualified Code(s): N18.4 - Chronic kidney disease, stage 4 (severe); D63.1 - Anemia in chronic kidney disease; D63.1 - Anemia in chronic kidney disease Is this a current diagnosis for this admission?: Yes Plan: Monitor hemoglobin (5) Acute on chronic respiratory failure Qualifiers: Respiratory failure complication: hypoxia and hypercapnia Qualified Code(s): J96.21 - Acute and chronic respiratory failure with hypoxia; J96.22 - Acute and chronic respiratory failure with hypercapnia Is this a current diagnosis for this admission?: Yes Plan: The patient is resting comfortably eating lunch off of BiPAP. She may just require BiPAP at night. The patient does have duo nebs ordered if needed. There is high likelihood of morbid obesity hypoventilation as well. (6) Physical deconditioning Is this a current diagnosis for this admission?: Yes Plan: Continue physical therapy - Time Time Spent with patient: 15-24 minutes Medications reviewed and adjusted accordingly: Yes
[2018-10-29] MEDS: CALCIUM ACETATE 667 MG CAPSULE PO SCH (17:17)
[2018-10-29] MEDS: TRAMADOL HCL 50 MG TABLET PO PRN (21:25)
[2018-10-29] MEDS: FAMOTIDINE 20 MG TABLET PO SCH (21:25)
[2018-10-29] MEDS: ATORVASTATIN CALCIUM 20 MG TABLET PO SCH (21:26)
[2018-10-29] MEDS: TRAZODONE HCL 50 MG TABLET PO SCH (21:26)
[2018-10-29] MEDS: INSULIN REG, HUMAN 100 UNIT/ML 3 ML VIAL (PYX) SUBCUT PRN (21:38)
[2018-10-30] MEDS: LEVOTHYROXINE SODIUM 0.088 MG TABLET PO SCH (06:33)
[2018-10-30] MEDS: PREGABALIN 100 MG CAPSULE PO SCH ×3 (06:33→21:43)
[2018-10-30 07:15] LABS: ANION GAP 6 (5-19); BLOOD UREA NITROGEN 114 mg/dL (7-20); CALCIUM 9.8 mg/dL (8.4-10.2); CARBON DIOXIDE 38 mmol/L (22-30); CHLORIDE 98 mmol/L (98-107); GLUCOSE 158 mg/dL (75-110); PHOSPHORUS 4.4 mg/dL (2.5-4.5); POTASSIUM 4.6 mmol/L (3.6-5.0); SODIUM 141.5 mmol/L (137-145)
[2018-10-30] MEDS: CHOLECALCIFEROL (D3) 1,000 UNIT TABLET PO SCH (10:19)
[2018-10-30] MEDS: CETIRIZINE 5 MG TABLET PO SCH (10:20)
[2018-10-30] MEDS: CARVEDILOL 12.5 MG TABLET PO SCH ×2 (10:20→22:44)
[2018-10-30] MEDS: FUROSEMIDE 80 MG TABLET PO SCH ×2 (10:20→17:17)
[2018-10-30] MEDS: AMLODIPINE BESYLATE 5 MG TABLET PO SCH (10:21)
[2018-10-30] MEDS: FLUTICASONE NASAL SPRAY 50 MCG/SPRY 120 SPRAY/16 GM NASL SCH (10:21)
[2018-10-30] MEDS: ASPIRIN 81 MG TABLET, ENT COATED PO SCH (10:21)
[2018-10-30] MEDS: CALCIUM ACETATE 667 MG CAPSULE PO SCH ×3 (10:21→17:20)
[2018-10-30] MEDS: PANTOT AC/MIN OIL/PET HY-PHL OINT 50 GM TOP SCH ×3 (10:22→17:21)
[2018-10-30] MEDS: FERROUS SULFATE 325 MG TABLET PO SCH (10:22)
[2018-10-30] MEDS: INSULIN GLARGINE,HUM.REC.ANLOG 1,000 UNIT/10 ML UNIT SUBCUT SCH ×2 (10:23→17:17)
--- NOTE | 2018-10-30 12:23 | PDOC PROGRESS REPORT ---
Subjective Progress Note for:: 10/30/18 Subjective:: Patient is sitting up in bed eating lunch. She is off of oxygen. She appears comfortable. Reason For Visit: ACUTE ON CHRONIC RENAL FAILURE,ACUTE ON CHRONIC Physical Exam Vital Signs: Temp Pulse Resp BP Pulse Ox 97.8 F 67 22 H 126/51 H 98 10/30/18 08:00 10/30/18 08:00 10/30/18 08:00 10/30/18 08:00 10/30/18 08:00 Intake & Output 10/29/18 10/30/18 10/31/18 06:59 06:59 06:59 Intake Total 1367 1809 Output Total 9140 5053 Balance -1553 -2616 Weight 139.7 kg 128.7 kg General appearance: PRESENT: no acute distress, cooperative, morbidly obese, well-developed Respiratory exam: PRESENT: decreased breath sounds - Due to body habitus, symmetrical, unlabored. ABSENT: rales, rhonchi, stridor, wheezes Cardiovascular exam: PRESENT: RRR, +S1, +S2 GI/Abdominal exam: PRESENT: distended - Large protuberant abdomen, normal bowel sounds, soft. ABSENT: tenderness Extremities exam: PRESENT: other - Fasciculations upper arms Neurological exam: PRESENT: alert, awake, oriented to person, oriented to place, oriented to time, oriented to situation, CN II-XII grossly intact Psychiatric exam: PRESENT: appropriate affect, normal mood. ABSENT: agitated, anxious Results Laboratory Results: 10/29/18 05:39 10/30/18 05:36 10/30/18 05:36 Sodium 141.5 Potassium 4.6 Chloride 98 Carbon Dioxide 38 H Anion Gap 6 BUN 114 H Creatinine 2.39 H Est GFR ( Amer) 24 L Est GFR (Non-Af Amer) 20 L Glucose 158 H Calcium 9.8 Phosphorus 4.4 Magnesium 2.8 H 10/28/18 04:44 Catheterized Urine Urine Culture - Final Pseudomonas Aeruginosa 10/28/18 04:55 Troponin I 0.038 Impressions: Chest X-Ray 10/28/18 04:00 IMPRESSION: No acute disease. Head CT 10/28/18 04:00 IMPRESSION: No acute findings. Assessment & Plan - Diagnosis (1) Acute encephalopathy Is this a current diagnosis for this admission?: Yes Plan: Resolved. The patient does have Pseudomonas cystitis and this could have been the inciting factor. (2) Renal failure Qualifiers: Renal failure chronicity: chronic Chronic kidney disease stage: stage 4 (severe) Qualified Code(s): N18.4 - Chronic kidney disease, stage 4 (severe) Is this a current diagnosis for this admission?: Yes Plan: BUN is decreasing. GFR is holding steady. Follow-up with nephrology after discharge. (3) Chronic uremia syndrome Is this a current diagnosis for this admission?: Yes (4) Anemia in chronic kidney disease (CKD) Qualifiers: Chronic kidney disease stage: stage 4 (severe) Qualified Code(s): N18.4 - Chronic kidney disease, stage 4 (severe); D63.1 - Anemia in chronic kidney disease; D63.1 - Anemia in chronic kidney disease Is this a current diagnosis for this admission?: Yes Plan: Continue to monitor. I do not believe the patient is on erythropoietin. (5) Acute on chronic respiratory failure Qualifiers: Respiratory failure complication: hypoxia and hypercapnia Qualified Code(s): J96.21 - Acute and chronic respiratory failure with hypoxia; J96.22 - Acute and chronic respiratory failure with hypercapnia Is this a current diagnosis for this admission?: Yes Plan: On room air right now. She is eating lunch. She still uses BiPAP at night which she feels is quite helpful. (6) Physical deconditioning Is this a current diagnosis for this admission?: Yes Plan: Physical therapy (7) Acute cystitis with positive culture Is this a current diagnosis for this admission?: Yes Plan: Urine culture grew greater than 100,000 colony-forming units of pseudomonas aeruginosa. It was a pure culture. It likely instigated her encephalopathy. She is on levofloxacin 250 mg daily. She is right at the cusp of a dose adjustment for her kidney failure. We will watch her renal failure and adjust the levofloxacin if necessary. - Time Time Spent with patient: 15-24 minutes Medications reviewed and adjusted accordingly: Yes
[2018-10-30] MEDS: LEVOFLOXACIN 250 MG TABLET PO SCH (14:27)
[2018-10-30] MEDS: INSULIN REG, HUMAN 100 UNIT/ML 3 ML VIAL (PYX) SUBCUT PRN ×3 (14:27→21:44)
[2018-10-30] MEDS: NYSTATIN TOPICAL POWDER 15 GM TP SCH (17:18)
[2018-10-30] MEDS: TRAMADOL HCL 50 MG TABLET PO PRN (17:41)
[2018-10-30] MEDS: TRAZODONE HCL 50 MG TABLET PO SCH (21:42)
[2018-10-30] MEDS: ATORVASTATIN CALCIUM 20 MG TABLET PO SCH (21:43)
[2018-10-30] MEDS: FAMOTIDINE 20 MG TABLET PO SCH (21:43)
[2018-10-31 05:46] LABS: ALBUMIN 3.3 g/dL (3.5-5.0); ANION GAP 6 (5-19); BLOOD UREA NITROGEN 102 mg/dL (7-20); CALCIUM 10.2 mg/dL (8.4-10.2); CARBON DIOXIDE 38 mmol/L (22-30); CHLORIDE 98 mmol/L (98-107); GLUCOSE 131 mg/dL (75-110); PHOSPHORUS 4.1 mg/dL (2.5-4.5); POTASSIUM 4.3 mmol/L (3.6-5.0); SODIUM 142.2 mmol/L (137-145)
[2018-10-31] MEDS: PREGABALIN 100 MG CAPSULE PO SCH ×3 (06:05→22:01)
[2018-10-31] MEDS: LEVOTHYROXINE SODIUM 0.088 MG TABLET PO SCH (06:05)
[2018-10-31] MEDS: CETIRIZINE 5 MG TABLET PO SCH (10:28)
[2018-10-31] MEDS: FUROSEMIDE 80 MG TABLET PO SCH ×2 (10:28→17:59)
[2018-10-31] MEDS: INSULIN GLARGINE,HUM.REC.ANLOG 1,000 UNIT/10 ML UNIT SUBCUT SCH ×2 (10:28→17:59)
[2018-10-31] MEDS: CHOLECALCIFEROL (D3) 1,000 UNIT TABLET PO SCH (10:29)
[2018-10-31] MEDS: CARVEDILOL 12.5 MG TABLET PO SCH ×2 (10:29→22:02)
[2018-10-31] MEDS: ASPIRIN 81 MG TABLET, ENT COATED PO SCH (10:29)
[2018-10-31] MEDS: CALCIUM ACETATE 667 MG CAPSULE PO SCH ×3 (10:29→18:00)
[2018-10-31] MEDS: AMLODIPINE BESYLATE 5 MG TABLET PO SCH (10:29)
[2018-10-31] MEDS: NYSTATIN TOPICAL POWDER 15 GM TP SCH (10:32)
[2018-10-31] MEDS: FERROUS SULFATE 325 MG TABLET PO SCH (10:33)
[2018-10-31] MEDS: FLUTICASONE NASAL SPRAY 50 MCG/SPRY 120 SPRAY/16 GM NASL SCH (13:46)
[2018-10-31] MEDS: LEVOFLOXACIN 250 MG TABLET PO SCH (13:46)
[2018-10-31] MEDS: PANTOT AC/MIN OIL/PET HY-PHL OINT 50 GM TOP SCH ×2 (13:46→18:00)
--- NOTE | 2018-10-31 19:25 | PDOC PROGRESS REPORT ---
Subjective Progress Note for:: 10/31/18 Subjective:: The patient was sleeping this afternoon. She opened her eyes briefly. Her participation in the encounter was limited. Reason For Visit: ACUTE ON CHRONIC RENAL FAILURE,ACUTE ON CHRONIC Physical Exam Vital Signs: Temp Pulse Resp BP Pulse Ox 98.3 F 74 18 119/43 L 97 10/31/18 15:51 10/31/18 15:51 10/31/18 15:51 10/31/18 15:51 10/31/18 17:25 Intake & Output 10/30/18 10/31/18 11/01/18 06:59 06:59 06:59 Intake Total 1809 850 775 Output Total 4425 3550 1300 Balance -2616 -2700 -525 Weight 128.7 kg 136.4 kg General appearance: PRESENT: no acute distress Respiratory exam: PRESENT: clear to auscultation emperatriz - Anteriorly, symmetrical, unlabored. ABSENT: accessory muscle use, rales, rhonchi, wheezes Cardiovascular exam: PRESENT: RRR, +S1, +S2 GI/Abdominal exam: PRESENT: normal bowel sounds, soft. ABSENT: tenderness Neurological exam: ABSENT: awake - Only opened her eyes briefly several times. Psychiatric exam: ABSENT: agitated Focused psych exam: ABSENT: restlessness Results Laboratory Results: 10/29/18 05:39 10/31/18 04:43 10/31/18 04:43 Sodium 142.2 Potassium 4.3 Chloride 98 Carbon Dioxide 38 H Anion Gap 6 BUN 102 H Creatinine 2.31 H Est GFR ( Amer) 25 L Est GFR (Non-Af Amer) 21 L Glucose 131 H Calcium 10.2 Phosphorus 4.1 Magnesium 2.3 Albumin 3.3 L 10/28/18 04:55 Troponin I 0.038 Impressions: Chest X-Ray 10/28/18 04:00 IMPRESSION: No acute disease. Head CT 10/28/18 04:00 IMPRESSION: No acute findings. Assessment & Plan - Diagnosis (1) Acute encephalopathy Is this a current diagnosis for this admission?: Yes Plan: Secondary to cystitis. Resolved (2) Renal failure Qualifiers: Renal failure chronicity: chronic Chronic kidney disease stage: stage 4 (severe) Qualified Code(s): N18.4 - Chronic kidney disease, stage 4 (severe) Is this a current diagnosis for this admission?: Yes Plan: The patient is back at baseline. (3) Anemia in chronic kidney disease (CKD) Qualifiers: Chronic kidney disease stage: stage 4 (severe) Qualified Code(s): N18.4 - Chronic kidney disease, stage 4 (severe); D63.1 - Anemia in chronic kidney disease; D63.1 - Anemia in chronic kidney disease Is this a current diagnosis for this admission?: Yes (4) Acute on chronic respiratory failure Qualifiers: Respiratory failure complication: hypoxia and hypercapnia Qualified Code(s): J96.21 - Acute and chronic respiratory failure with hypoxia; J96.22 - Acute and chronic respiratory failure with hypercapnia Is this a current diagnosis for this admission?: Yes Plan: The patient required BiPAP at admission. She is doing much better. She in fact is currently napping with her nasal cannula at 2 L/min. (5) Physical deconditioning Is this a current diagnosis for this admission?: Yes Plan: The patient will continue to need physical therapy. Hence the plan is to return to the care home facility for ongoing therapy. (6) Acute cystitis with positive culture Is this a current diagnosis for this admission?: Yes Plan: Urine culture was positive for pseudomonas aeruginosa. It was the only isolate. It was greater than 100,000 colony-forming units per milliliter. She is on levofloxacin. Within 48 hours she improved significantly with regard to her acute encephalopathy. Complete antibiotic therapy. The patient is suspected of having a neurogenic bladder. Nephrology recommends keeping the Moreira catheter in until she can see a urologist. - Time Time Spent with patient: Less than 15 minutes Medications reviewed and adjusted accordingly: Yes Anticipated discharge: SNF Within: within 24 hours
[2018-10-31] MEDS: INSULIN REG, HUMAN 100 UNIT/ML 3 ML VIAL (PYX) SUBCUT PRN (22:01)
[2018-10-31] MEDS: ATORVASTATIN CALCIUM 20 MG TABLET PO SCH (22:02)
[2018-10-31] MEDS: TRAZODONE HCL 50 MG TABLET PO SCH (22:02)
[2018-10-31] MEDS: FAMOTIDINE 20 MG TABLET PO SCH (22:02)
[2018-11-01] MEDS: LEVOTHYROXINE SODIUM 0.088 MG TABLET PO SCH (05:49)
[2018-11-01] MEDS: PREGABALIN 100 MG CAPSULE PO SCH ×2 (05:49→13:32)
[2018-11-01] MEDS: CARVEDILOL 12.5 MG TABLET PO SCH (09:30)
[2018-11-01] MEDS: AMLODIPINE BESYLATE 5 MG TABLET PO SCH (09:30)
[2018-11-01] MEDS: CHOLECALCIFEROL (D3) 1,000 UNIT TABLET PO SCH (09:30)
[2018-11-01] MEDS: FERROUS SULFATE 325 MG TABLET PO SCH (09:30)
[2018-11-01] MEDS: ASPIRIN 81 MG TABLET, ENT COATED PO SCH (09:30)
[2018-11-01] MEDS: FUROSEMIDE 80 MG TABLET PO SCH (09:30)
[2018-11-01] MEDS: CETIRIZINE 5 MG TABLET PO SCH (09:30)
[2018-11-01] MEDS: NYSTATIN TOPICAL POWDER 15 GM TP SCH (09:31)
[2018-11-01] MEDS: INSULIN GLARGINE,HUM.REC.ANLOG 1,000 UNIT/10 ML UNIT SUBCUT SCH (09:31)
[2018-11-01] MEDS: PANTOT AC/MIN OIL/PET HY-PHL OINT 50 GM TOP SCH (09:33)
[2018-11-01] MEDS: CALCIUM ACETATE 667 MG CAPSULE PO SCH ×2 (09:33→13:32)
[2018-11-01] MEDS: FLUTICASONE NASAL SPRAY 50 MCG/SPRY 120 SPRAY/16 GM NASL SCH (09:33)
--- NOTE | 2018-11-01 11:41 | PDOC TRANSFER SUMMARY ---
General - Admit/Disc Date/PCP Admission Date/Primary Care Provider: 10/28/18 06:21 RAO PAGE MD Discharge Date: 11/01/18 - Additional Information Resuscitation Status: Do Not Resuscitate - The patient was very specific today. She told me that she does not want hemodialysis. She does not want to be intubated or resuscitated. She stated that when it is my time it is my time. Home Medications: Atorvastatin Calcium [Lipitor 20 mg Tablet] 20 mg PO QHS 10/17/18 Carvedilol [Coreg 12.5 mg Tablet] 12.5 mg PO Q12 10/17/18 Clobetasol Propionate [Temovate Solution] 1 applic TOP QHS MDD SCALP & EAR LOBES 10/17/18 Cran/Vitc/Mannose/Fos/Bromeln [Uti-Stat Liquid] 30 ml PO QAM 10/17/18 Docusate Sodium [Colace 100 mg Capsule] 100 mg PO QAM 10/17/18 Fluticasone Propionate [Flonase Nasal [place] 50 Mcg/[place] 16 gm] 2 spray NASL QAM 10/17/18 Furosemide [Lasix 80 mg Tablet] 80 mg PO BID 10/17/18 Levothyroxine Sodium 88 mcg PO Q6AM 10/17/18 Lifitegrast [Xiidra] 1 drop OU BID 10/17/18 Ondansetron HCl [Zofran 4 mg Tablet] 4 mg PO Q8HP PRN 10/17/18 Phenol [Chloraseptic] 2 sprays PO BIDP PRN 10/17/18 Pimecrolimus [Elidel] 1 applic TOP BID MDD FACE & EARS FOR FLAKY SKIN 10/17/18 Potassium Chloride [K-Tab ER] 20 meq PO BID 10/17/18 Pregabalin [Lyrica 100 mg Capsule] 100 mg PO Q8 10/17/18 Ranitidine HCl [Zantac 150 mg Tablet] 150 mg PO BID 10/17/18 Sodium Chloride [Saline Mist] 1 spray NASL ACHS 10/17/18 Tramadol HCl [Ultram 50 mg Tablet] 50 mg PO Q4HP PRN 10/17/18 Trazodone HCl [Desyrel 50 mg Tablet] 25 mg PO QHS 10/17/18 Amlodipine Besylate [Norvasc 5 mg Tablet] 5 mg PO DAILY #30 tablet 10/25/18 Aspirin [Ecotrin 81 mg EC Tablet] 81 mg PO DAILY #30 tabec 10/25/18 Budesonide [Pulmicort Neb 0.5 mg/2 ml Ampul] 0.5 mg NEB RTQ12 #60 ampul.neb 10/25/18 Cetirizine HCl [Zyrtec 5 mg Tablet] 5 mg PO QAM #30 tablet 10/25/18 Cholecalciferol (Vitamin D3) [Vitamin D3 1000 Unit Tablet] 5,000 unit PO DAILY tablet 10/25/18 Famotidine [Pepcid 20 mg Tablet] 20 mg PO QHS #30 tablet 10/25/18 Ferrous Sulfate [Feosol 325 mg Tablet] 325 mg PO DAILY #0 tablet 10/25/18 Insulin Glargine,Hum.rec.anlog [Lantus Insulin 100 Unit/1 ml 10 ml] 60 unit SUBCUT BID #1 unit 10/25/18 Insulin Regular, Human [Humulin R (Reg) Insulin 100 unit/mL] 0 - 12 unit SUBCUT ACHSP PRN #1 vial 10/25/18 Lisinopril [Prinivil 10 mg Tablet] 10 mg PO DAILY #30 tablet 10/25/18 Albuterol Sulfate [Proventil 0.5% Neb 2.5 mg/0.5 ml Vial.neb] 2.5 mg NEB RTQ4HP PRN 10/28/18 Sennosides/Docusate Sodium [Senna-S Tablet] 1 tab PO DAILY 10/28/18 History of Present Illness Admission Date/PCP: 10/28/18 06:21 RAO PAGE MD History of Present Illness: 68 year old female admitted after presentation as in HPI below: "LORETO JOSHI is a 68 year old female who was just discharged after an 8-day stay here at [facility]. This presentation appears to be similar. I did ask the patient and she feels that the transfer was because of some weakness and confusion. She is on BiPAP but appears to be breathing comfortable. She denies any nausea, vomiting and reports occasional diarrhea. She stated this started approximately 2 days ago. There is a question of neurogenic bladder that is worsening her already significant chronic kidney disease. The patient states that the catheter at the correction was never removed however records from the emergency department suggest otherwise. She did answer questions appropriately. She was somewhat somnolent but responded to verbal stimulus. She does exhibit fasciculations." Hospital Course Hospital Course: Patient was admitted with diagnosis of acute encephalopathy, renal failure, anemia of chronic kidney disease, acute on chronic respiratory failure, physical deconditioning. Further work up revealed UTI and patient managed with Levaquin IV. She was also treated with BiPAP. Urine culture grew pseudomonas sensitive to Levoqine. Pt is doing better now, mental status is improved. She is being dis charged back to SNF in improved condition. Details of treatment as below: (1) Acute encephalopathy Is this a current diagnosis for this admission?: Yes Plan: Secondary to cystitis. Resolved (2) Renal failure Qualifiers: Renal failure chronicity: chronic Chronic kidney disease stage: stage 4 (severe) Qualified Code(s): N18.4 - Chronic kidney disease, stage 4 (severe) Is this a current diagnosis for this admission?: Yes Plan: The patient is back at baseline. (3) Anemia in chronic kidney disease (CKD) Qualifiers: Chronic kidney disease stage: stage 4 (severe) Qualified Code(s): N18.4 - Chronic kidney disease, stage 4 (severe); D63.1 - Anemia in chronic kidney disease; D63.1 - Anemia in chronic kidney disease Is this a current diagnosis for this admission?: Yes (4) Acute on chronic respiratory failure Qualifiers: Respiratory failure complication: hypoxia and hypercapnia Qualified Code(s): J96.21 - Acute and chronic respiratory failure with hypoxia; J96.22 - Acute and chronic respiratory failure with hypercapnia Is this a current diagnosis for this admission?: Yes Plan: The patient required BiPAP at admission. She is doing much better. (5) Physical deconditioning Is this a current diagnosis for this admission?: Yes Plan: The patient will continue to need physical therapy. Hence the plan [facility]. (6) Acute cystitis with positive culture Is this a current diagnosis for this admission?: Yes Plan: Urine culture was positive for pseudomonas aeruginosa. It was the only isolate. It was greater than 100,000 colony-forming units per milliliter. She is on levofloxacin. Within 48 hours she improved significantly with regard to her acu te encephalopathy. Complete antibiotic therapy x 2 more days. The patient is suspected of having a neurogenic bladder. Nephrology recommends keeping the Moreira catheter in until she can see a urologist. Physical Exam Vital Signs: Temp Pulse Resp BP Pulse Ox 98.1 F 69 16 127/61 H 95 11/01/18 07:26 11/01/18 07:26 11/01/18 07:26 11/01/18 07:26 11/01/18 07:26 Intake & Output 10/31/18 11/01/18 11/02/18 06:59 06:59 06:59 Intake Total 850 925 Output Total 3550 3550 Balance -2700 -2625 Weight 136.4 kg 136.3 kg Results Laboratory Results: 10/29/18 05:39 10/31/18 04:43 10/28/18 04:55 Troponin I 0.038 Impressions: Chest X-Ray 10/28/18 04:00 IMPRESSION: No acute disease. Head CT 10/28/18 04:00 IMPRESSION: No acute findings. Transfer Plan - Time Spent with Patient Time spent with patient: Less than 30 Minutes Qualifiers - * PATIENT BEING DISCHARGED WITH ANY OF THE FOLLOWING DIAGNOSIS: No
[2018-11-01] MEDS: INSULIN REG, HUMAN 100 UNIT/ML 3 ML VIAL (PYX) SUBCUT PRN (12:56)
[2018-11-01] MEDS: TRAMADOL HCL 50 MG TABLET PO PRN (13:32)
[2018-11-01] MEDS: LEVOFLOXACIN 250 MG TABLET PO SCH (13:33)
[2018-11-01 15:22] VITALS: BP 139/47
== END 2018-11-01 15:40 | DRG 689 ==
LOC: ER 03:47 → EH 06:21 → 3W 10:30
PROVIDERS: ADMIT Internal Medicine; ATTEND Internal Medicine
PROC: 5A09357 Assistance with Respiratory Ventilation, Less than 24 Consecutive Hours, Continuous Positive Airway Pressure (ICD-10-PCS; principal; 2018-10-28)
DX: N30.01 Acute cystitis with hematuria (principal); N18.6 End stage renal disease; J96.22 Acute and chronic respiratory failure with hypercapnia; J96.21 Acute and chronic respiratory failure with hypoxia; I13.2 Hypertensive heart and chronic kidney disease with heart failure and with stage 5 chronic kidney disease, or end stage renal disease; G93.40 Encephalopathy, unspecified; Z68.43 Body mass index [BMI] 50.0-59.9, adult; L89.322 Pressure ulcer of left buttock, stage 2; E11.22 Type 2 diabetes mellitus with diabetic chronic kidney disease; Z66 Do not resuscitate; L89.892 Pressure ulcer of other site, stage 2; I48.0 Paroxysmal atrial fibrillation; I50.9 Heart failure, unspecified; E66.01 Morbid (severe) obesity due to excess calories; N31.9 Neuromuscular dysfunction of bladder, unspecified; J44.9 Chronic obstructive pulmonary disease, unspecified; I25.10 Atherosclerotic heart disease of native coronary artery without angina pectoris; E78.5 Hyperlipidemia, unspecified; G47.30 Sleep apnea, unspecified; E03.9 Hypothyroidism, unspecified; M19.90 Unspecified osteoarthritis, unspecified site; M10.9 Gout, unspecified; F32.9 Major depressive disorder, single episode, unspecified; D63.1 Anemia in chronic kidney disease; L29.9 Pruritus, unspecified; B96.5 Pseudomonas (aeruginosa) (mallei) (pseudomallei) as the cause of diseases classified elsewhere; K21.9 Gastro-esophageal reflux disease without esophagitis; R19.7 Diarrhea, unspecified; R25.3 Fasciculation; R53.1 Weakness; I25.2 Old myocardial infarction; Z85.41 Personal history of malignant neoplasm of cervix uteri; Z86.19 Personal history of other infectious and parasitic diseases; Z87.891 Personal history of nicotine dependence; Z79.82 Long term (current) use of aspirin; Z79.4 Long term (current) use of insulin; Z83.3 Family history of diabetes mellitus; Z82.49 Family history of ischemic heart disease and other diseases of the circulatory system; Z80.9 Family history of malignant neoplasm, unspecified; Z84.89 Family history of other specified conditions; Z86.73 Personal history of transient ischemic attack (TIA), and cerebral infarction without residual deficits
CPT/HCPCS: 36415; 70450; 71045; 80048; 80053; 80069; 81001; 82803; 82962; 83735; 84100; 84132; 84484; 85025; 87040; 87086; 87088; 87186; 93005; 93010; 94660; 96374; 99285; G8987-GO; G8988-GO; J0696; J1815; J3490

== ENCOUNTER 2019-01-11 23:24 | Inpatient (IN) | payer MEDICARE, MEDICAID ==
[2019-01-12] MEDS ORDERED: VANCOMYCIN HCL INJ 1000 MG VIAL IV ONE (00:15)
[2019-01-12] MEDS ORDERED: PIPERACILLIN/TAZOBACTAM 4.5 GM VIAL IV ONE (00:15)
--- NOTE | 2019-01-12 00:34 | ER Document Report ---
ED General - General Stated Complaint: FEVER/DISORIENTATION Time Seen by Provider: 01/12/19 00:05 Notes: Patient is a 68-year-old female who presents with complaint of some disorientation and feeling more weak over the last couple days. Subjective fevers at the senior care. Temp in the ambulance was 100.1. She has a history of a toe infection on the right toe. She is stop antibiotics and is cleared by the nursing staff every day at the senior care. Her last 24 hours she is had redness that is now spread up her right leg. She does have history of frequent UTIs. She denies any pain in her bladder. No pain with urination. She has a history of renal failure. She refuses dialysis. She is a DNR. She also says that she is still a DO NOT INTUBATE. She denies cough or congestion. No other complaints at this time. She typically wears 2 L of oxygen at the senior care. TRAVEL OUTSIDE OF THE [place] IN LAST 30 DAYS: No - Related Data Allergies/Adverse Reactions: No Known Allergies Allergy (Verified 03/15/18 15:04) Past Medical History - Social History Smoking Status: Unknown if Ever Smoked Frequency of alcohol use: None Drug Abuse: None Family History: CAD, DM, Hypertension, Malignancy, Thyroid Disfunction - Past Medical History Cardiac Medical History: Reports: Hx Atrial Fibrillation - Paroxysmal, Hx Congestive Heart Failure, Hx Coronary Artery Disease, Hx Heart Attack, Hx Hypercholesterolemia, Hx Hypertension Denies: Hx DVT, Hx Pulmonary Embolism Pulmonary Medical History: Reports: Hx COPD, Hx Pneumonia, Hx Sleep Apnea Denies: Hx Asthma, Hx Bronchitis Neurological Medical History: Denies: Hx Cerebrovascular Accident, Hx Migraine, Hx Seizures Endocrine Medical History: Reports: Hx Diabetes Mellitus Type 2, Hx Hypothyroidism. Denies: Hx Diabetes Mellitus Type 1, Hx Hyperthyroidism Renal/ Medical History: Reports: Hx End Stage Renal Disease. 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 Denies: Hx Hepatitis Past Surgical History: Reports: Hx Abdominal Surgery - umbilical hernia, Hx Appendectomy, Hx Section, Hx Cholecystectomy, Hx Herniorrhaphy, Other - Breast cyst, history of fecal transplant for C. difficile. Denies: Hx Hysterectomy - Immunizations Hx Diphtheria, Pertussis, Tetanus Vaccination: Yes Hx Pneumococcal Vaccination: 08/06/15 Review of Systems - Review of Systems Notes: My Normal Review Basic REVIEW OF SYSTEMS: CONSTITUTIONAL : Weak. EENT: Denies eye, ear, throat, or mouth pain or symptoms. Denies nasal or sinus congestion. CARDIOVASCULAR: Denies chest pain. RESPIRATORY: Denies cough, cold, or chest congestion. Denies shortness of breath, difficulty breathing, or wheezing. GASTROINTESTINAL: Denies abdominal pain. Denies nausea, vomiting, or diarrhea. GENITOURINARY: Denies difficulty urinating, painful urination, burning, frequency, or blood in urine. MUSCULOSKELETAL: Denies neck or back pain or joint pain or swelling. SKIN: Redness to the right lower leg. NEUROLOGICAL: Denies altered mental status or loss of consciousness. Denies headache. Denies weakness or paralysis or loss of use of either side. Denies problems with gait or speech. Denies sensory or motor loss. ALL OTHER SYSTEMS REVIEWED AND NEGATIVE. Physical Exam - Vital signs Vitals: Resp Pulse Ox 20 96 01/11/19 23:47 01/11/19 23:47 - Notes Notes: General Appearance: Well nourished, alert, cooperative, no acute distress, no obvious discomfort. Vitals: reviewed, See vital signs table. Head: no swelling or tenderness to the head Eyes: PERRL, EOMI, Conjuctiva clear Mouth: No decreasd moisture Throat: No tonsillar inflammation, No airway obstruction, No lymphadenopathy Lungs: No wheezing, No rales, No rhonci, No accessory muscle use, good air exchange bilaterally. Heart: Normal rate, Regular rythm, No murmur, no rub Abdomen: Normal BS, soft, No rigidity, No abdominal tenderness, No guarding, no rebound, no abdominal masses, no organomegaly Extremities: strength 5/5 in all extremities, good pulses in all extremities, patient has a small ulceration to the right big toe which appears chronic. She has had some redness into the toe. She has some redness and goes along the inferior and posterior aspect of the foot and then redness that goes up into the leg about midway up the [place]. Skin: warm, dry, appropriate color, no rash Neuro: speech clear, oriented x 3, normal affect, responds appropriately to q uestions. Course - Re-evaluation Re-evalutation: 01/12/19 05:27 Despite the patient's normal appearing lab work her clinical appearance is continued to deteriorate and she is starting to have peers of altered mental status and clinically she just does not look well. Her pressure is remaining stable at 103/91. Heart rate started to increase in sound to low 100s. I do have concerns that she could be becoming septic despite her negative labs. Will discuss the case for possible admission with the warning physicians. She is st ill not has given us a urine. She refuses a straight cath at this time. I suspect that most likely the infection is the source is coming from her foot and leg on the right side. Dictation of this chart was performed using voice recognition software; therefore, there may be some unintended grammatical errors. - Vital Signs Vital signs: Temp Pulse Resp BP Pulse Ox 99.1 F 72 18 115/42 L 98 01/13/19 03:38 01/13/19 03:38 01/13/19 03:38 01/13/19 03:38 01/13/19 03:38 - Laboratory Result Diagrams: 01/12/19 00:50 01/12/19 00:50 Laboratory results interpreted by me: 01/12/19 01/12/19 01/12/19 00:50 00:50 07:35 RBC 3.11 L Hgb 9.6 L Hct 28.9 L RDW 14.3 H Lymphocytes % 12.7 L ABG HCO3 28.7 H ABG Total CO2 30.0 H Potassium 5.1 H Carbon Dioxide 32 H BUN 85 H Creatinine 2.99 H Est GFR ( Amer) 19 L Est GFR (Non-Af Amer) 16 L Glucose 159 H AST 44 H Ur Leukocyte Esterase 01/12/19 08:00 RBC Hgb Hct RDW Lymphocytes % ABG HCO3 ABG Total CO2 Potassium Carbon Dioxide BUN Creatinine Est GFR ( Amer) Est GFR (Non-Af Amer) Glucose AST Ur Leukocyte Esterase MODERATE H Discharge - Discharge Clinical Impression: Fever Qualifiers: Fever type: unspecified Qualified Code(s): R50.9 - Fever, unspecified Cellulitis Qualifiers: Site of cellulitis: extremity Site of cellulitis of extremity: lower extremity Laterality: right Qualified Code(s): L03.115 - Cellulitis of right lower limb
[2019-01-12 01:05] LABS: ABSOLUTE BASOPHILS # (AUTO) 0.1 10^3/uL (0.0-0.2); ABSOLUTE EOSINOPHILS # (AUTO) 0.1 10^3/uL (0.0-0.6); ABSOLUTE LYMPHOCYTES (AUTO) 1.1 10^3/uL (0.5-4.7); ABSOLUTE MONOCYTES (AUTO) 0.7 10^3/uL (0.1-1.4); ABSOLUTE NEUT (AUTO) 6.3 10^3/uL (1.7-8.2); BASOPHILS % (AUTO) 0.9 % (0-2); EOSINOPHILS % (AUTO) 0.9 % (0-6); HEMATOCRIT 28.9 % (36.0-47.0); HEMOGLOBIN 9.6 g/dL (12.0-15.5); LYMPHOCYTES % (AUTO) 12.7 % (13-45); MEAN CORPUSCULAR HEMOGLOBIN 30.9 pg (27.0-33.4); MEAN CORPUSCULAR HGB CONC 33.3 g/dL (32.0-36.0); MEAN CORPUSCULAR VOLUME 93 fl (80-97); PLATELET COUNT 150 10^3/uL (150-450); RED BLOOD COUNT 3.11 10^6/uL (3.72-5.28); RED CELL DISTRIBUTION WIDTH 14.3 % (11.5-14.0); SEGMENTED NEUTROPHILS % (AUTO) 76.5 % (42-78); TOTAL CELLS COUNTED % (AUTO) 100 %; WHITE BLOOD COUNT 8.3 10^3/uL (4.0-10.5)
[2019-01-12 01:18] LABS: ALANINE AMINOTRANSFERASE 36 U/L (9-52); ALBUMIN 3.7 g/dL (3.5-5.0); ALKALINE PHOSPHATASE 105 U/L (38-126); ANION GAP 9 (5-19); ASPARTATE AMINO TRANSFERASE 44 U/L (14-36); BILIRUBIN,DIRECT 0.2 mg/dL (0.0-0.4); BILIRUBIN,TOTAL 0.5 mg/dL (0.2-1.3); BLOOD UREA NITROGEN 85 mg/dL (7-20); CALCIUM 9.9 mg/dL (8.4-10.2); CARBON DIOXIDE 32 mmol/L (22-30); CHLORIDE 100 mmol/L (98-107); GLUCOSE 159 mg/dL (75-110); POTASSIUM 5.1 mmol/L (3.6-5.0); TOTAL PROTEIN 6.5 g/dL (6.3-8.2)
--- NOTE | 2019-01-12 01:32 | RADIOLOGY REPORT (SQ) ---
EXAM DESCRIPTION: XR CHEST 1 VIEW COMPLETED DATE/TME: 01/12/2019 00:32 CLINICAL HISTORY: 68 years, Female, fever COMPARISON: 10/28/2018 chest NUMBER OF VIEWS: 1 TECHNIQUE: Portable chest LIMITATIONS: None. FINDINGS: Stable cardiomegaly. Atheromatous change thoracic aorta. Osteopenia. Scarring left lung base. No pneumothorax IMPRESSION: No acute cardiopulmonary process copyright 2010 [employer]- All Rights Reserved
[2019-01-12 07:58] LABS: ARTERIAL BLOOD BASE EXCESS 3.8 mmol/L; ARTERIAL BLOOD FIO2 1L; ARTERIAL BLOOD H2CO3 1.33 mmol/L (1.05-1.35); ARTERIAL BLOOD HCO3 28.7 mmol/L (20-24); ARTERIAL BLOOD O2 SATURATION 96.3 % (94-98); ARTERIAL BLOOD PCO2 44.1 mmHg (35-45); ARTERIAL BLOOD PH 7.43 (7.35-7.45); ARTERIAL BLOOD PO2 81.6 mmHg (80-100)
[2019-01-12 08:25] LABS: APPEARANCE,URINE CLEAR; BILIRUBIN,URINE NEGATIVE (NEGATIVE); COLOR,URINE YELLOW; GLUCOSE, URINE NEGATIVE (NEGATIVE); KETONES,URINE NEGATIVE (NEGATIVE); LEUKOCYTE ESTERASE,URINE MODERATE (NEGATIVE); NITRITE,URINE NEGATIVE (NEGATIVE); PROTEIN,URINE NEGATIVE (NEGATIVE); UROBILINOGEN,URINE NEGATIVE mg/dL (<2.0)
[2019-01-12] MEDS ORDERED: ACETAMINOPHEN 325 MG TABLET PO ONE (09:06)
[2019-01-12] MEDS ORDERED: ONDANSETRON 4 MG TAB.RAPDIS PO PRN (09:36)
[2019-01-12] MEDS ORDERED: PIPERACILLIN/TAZOBACTAM 2.25 GM VIAL IV SCH (10:00)
[2019-01-12] MEDS ORDERED: ENOXAPARIN SODIUM INJ 40 MG/0.4 ML DISP.SYRIN SUBCUT SCH (10:00)
--- NOTE | 2019-01-12 10:12 | PDOC H&P ---
History of Present Illness Admission Date/PCP: RAO PAGE MD Patient complains of: right 1st toe infection History of Present Illness: LORETO JOSHI is a 68 year old female with history of multiple medical problems including morbid obesity, DM with peripheral neuropathy, chronic infections including foot ulcers, UTIs, C. diff, HTN who presents from assisted living facility with increased 1st R toe pain, drainage, and erythema. Per discussion with pt and chart review, she had long standing history of diabetic foot ulcers dating back to 2017. She follows with Dr. Angel (podiatry). She has had multiple I&Ds and has been on antibiotics previously. States that pain has increased in the past week. She also notes increased drainage including pus and blood. Systemically pt admits to fevers. Appears that there have been discussions in past regarding toe amputation however patient refused due to "not wanting to lose balance without my toe". Blood culture data from [facility] records have been negative except for 1 instance of E. coli that was likely due to u rinary source. In ED, patient noted to be sleepy. She has history of GUDELIA and uses CPAP at night. Also has history of hypercapnia. Vitals notable for temperature of 102F. Labs showed no evidence of increased WBC or lactic acid. Blood cultures were obtained and pt started on Vanc/Zoysn. Admitted to hospitalist service for further management. Past Medical History Cardiac Medical History: Reports: Atrial Fibrillation - Paroxysmal, Congestive Heart Failure, Coronary Artery Disease, Myocardial Infarction, Hyperlipidema, Hypertension Denies: DVT, Pulmonary Embolism Pulmonary Medical History: Reports: Chronic Obstructive Pulmonary Disease (COPD), Pneumonia, Sleep Apnea Denies: Asthma, Bronchitis Neurological Medical History: Denies: Migraine, Seizures Endocrine Medical History: Reports: Diabetes Mellitus Type 2, Hypothyroidism Denies: Diabetes Mellitus Type 1, Hyperthyroidism Renal/ Medical History: Reports: End Stage Renal Disease Malignancy Medical History: Reports: Cervical Cancer GI Medical History: Denies: Cirrhosis, Hepatitis Musculoskeltal Medical History: Reports: Arthritis, Gout Skin Medical History: Denies: Eczema, Psoriasis Psychiatric Medical History: Reports: Depression Hematology: Reports: Anemia Denies: Bleeding Tendencies Infectious Medical History: Reports: Clostridium Difficile - History of severe persistent C. difficile while in [place] and underwent fec Past Surgical History Past Surgical History: Reports: Appendectomy, Section, Cholecystectomy, Herniorrhaphy, Other - Breast cyst, history of fecal transplant for C. difficile Denies: Hysterectomy Social History Information Source: Patient, [facility] Records Lives with: [facility] Smoking Status: Unknown if Ever Smoked Frequency of Alcohol Use: None Hx Recreational Drug Use: No Drugs: None Hx Prescription Drug Abuse: No Family History Family History: CAD, DM, Hypertension, Malignancy, Thyroid Disfunction Parental Family History Reviewed: Yes - Mother with DM Children Family History Reviewed: NA Sibling(s) Family History Reviewed.: NA Medication/Allergy Home Medications: Atorvastatin Calcium [Lipitor 20 mg Tablet] 20 mg PO QHS 10/17/18 Carvedilol [Coreg 12.5 mg Tablet] 12.5 mg PO Q12 10/17/18 Clobetasol Propionate [Temovate Solution] 1 applic TOP QHS MDD SCALP & EAR LOBES 10/17/18 Cran/Vitc/Mannose/Fos/Bromeln [Uti-Stat Liquid] 30 ml PO QAM 10/17/18 Docusate Sodium [Colace 100 mg Capsule] 100 mg PO QAM 10/17/18 Fluticasone Propionate [Flonase Nasal [place] 50 Mcg/[place] 16 gm] 2 spray NASL QAM 10/17/18 Furosemide [Lasix 80 mg Tablet] 80 mg PO BID 10/17/18 Levothyroxine Sodium 88 mcg PO Q6AM 10/17/18 Lifitegrast [Xiidra] 1 drop OU BID 10/17/18 Ondansetron HCl [Zofran 4 mg Tablet] 4 mg PO Q8HP PRN 10/17/18 Phenol [Chloraseptic] 2 sprays PO BIDP PRN 10/17/18 Pimecrolimus [Elidel] 1 applic TOP BID MDD FACE & EARS FOR FLAKY SKIN 10/17/18 Potassium Chloride [K-Tab ER] 20 meq PO BID 10/17/18 Pregabalin [Lyrica 100 mg Capsule] 100 mg PO Q8 10/17/18 Ranitidine HCl [Zantac 150 mg Tablet] 150 mg PO BID 10/17/18 Sodium Chloride [Saline Mist] 1 spray NASL ACHS 10/17/18 Tramadol HCl [Ultram 50 mg Tablet] 50 mg PO Q4HP PRN 10/17/18 Trazodone HCl [Desyrel 50 mg Tablet] 25 mg PO QHS 10/17/18 Amlodipine Besylate [Norvasc 5 mg Tablet] 5 mg PO DAILY #30 tablet 10/25/18 Aspirin [Ecotrin 81 mg EC Tablet] 81 mg PO DAILY #30 tabec 10/25/18 Budesonide [Pulmicort Neb 0.5 mg/2 ml Ampul] 0.5 mg NEB RTQ12 #60 ampul.neb 10/25/18 Cetirizine HCl [Zyrtec 5 mg Tablet] 5 mg PO QAM #30 tablet 10/25/18 Cholecalciferol (Vitamin D3) [Vitamin D3 1000 Unit Tablet] 5,000 unit PO DAILY tablet 10/25/18 Famotidine [Pepcid 20 mg Tablet] 20 mg PO QHS #30 tablet 10/25/18 Ferrous Sulfate [Feosol 325 mg Tablet] 325 mg PO DAILY #0 tablet 10/25/18 Insulin Glargine,Hum.rec.anlog [Lantus Insulin 100 Unit/1 ml 10 ml] 60 unit SUBCUT BID #1 unit 10/25/18 Insulin Regular, Human [Humulin R (Reg) Insulin 100 unit/mL] 0 - 12 unit SUBCUT ACHSP PRN #1 vial 10/25/18 Lisinopril [Prinivil 10 mg Tablet] 10 mg PO DAILY #30 tablet 10/25/18 Albuterol Sulfate [Proventil 0.5% Neb 2.5 mg/0.5 ml Vial.neb] 2.5 mg NEB RTQ4HP PRN 10/28/18 Sennosides/Docusate Sodium [Senna-S Tablet] 1 tab PO DAILY 10/28/18 Acetaminophen [Tylenol 325 mg Tablet] 650 mg PO Q4HP PRN tablet 11/01/18 Calcium Acetate [Phoslo 667 mg Capsule] 667 mg PO MEALS capsule 11/01/18 Docusate Sodium [Colace 100 mg Capsule] 100 mg PO BIDP PRN capsule 11/01/18 Glucagon,Human Recombinant [Glucagen Inj 1 mg Vial] 1 mg IM PRN PRN vial 11/01/18 Levofloxacin [Levaquin 250 mg Tablet] 250 mg PO DAILY@1400 2 Days tablet 11/01/18 Nystatin [Mycostatin Topical Powder 15 gm] 1 applic TP DAILY bottle 11/01/18 Pantot AC/Min Oil/Pet Hy-Phl [Aquaphor W-Robyn Heal Oint 50 gm] 1 applic TOP BID tube 11/01/18 Allergies/Adverse Reactions: No Known Allergies Allergy (Verified 03/15/18 15:04) Review of Systems All systems: reviewed and no additional remarkable complaints except as stated Physical Exam Vital Signs: Temp Pulse Resp BP Pulse Ox 102 F H 22 H 137/56 H 91 L 01/12/19 09:05 01/12/19 08:02 01/12/19 08:02 01/12/19 08:02 Intake & Output 01/11/19 01/12/19 01/13/19 06:59 06:59 07:59 Weight 137 kg General appearance: PRESENT: cooperative, morbidly obese, other - Sleepy but arousable. Speech fluent and appropriate. Head exam: PRESENT: atraumatic, normocephalic Mouth exam: PRESENT: dry mucosa Respiratory exam: PRESENT: clear to auscultation emperatriz - anteriorly, unlabored, other - NC in place, difficult examination due to body habitus and positioning Cardiovascular exam: PRESENT: +S1, +S2, other - Distant heart sounds GI/Abdominal exam: PRESENT: soft. ABSENT: tenderness Extremities exam: PRESENT: tenderness, other - Chronic venous stasis bilaterally; right 1st toe ulceration; mild erythema on right LE around ankle. Warm and tender to touch (R>L) Neurological exam: PRESENT: alert, awake, CN II-XII grossly intact. ABSENT: aph asic Psychiatric exam: PRESENT: depressed, flat affect Skin exam: PRESENT: erythema, warm, other - Per above Results Laboratory Results: 01/12/19 00:50 01/12/19 00:50 01/12/19 01/12/19 01/12/19 00:50 00:50 00:50 WBC 8.3 RBC 3.11 L Hgb 9.6 L Hct 28.9 L MCV 93 MCH 30.9 MCHC 33.3 RDW 14.3 H Plt Count 150 Seg Neutrophils % 76.5 Lymphocytes % 12.7 L Monocytes % 9.0 Eosinophils % 0.9 Basophils % 0.9 Absolute Neutrophils 6.3 Absolute Lymphocytes 1.1 Absolute Monocytes 0.7 Absolute Eosinophils 0.1 Absolute Basophils 0.1 Carbonic Acid HCO3/H2CO3 Ratio ABG pH ABG pCO2 ABG pO2 ABG HCO3 ABG O2 Saturation ABG Base Excess FiO2 Sodium 141.0 Potassium 5.1 H Chloride 100 Carbon Dioxide 32 H Anion Gap 9 BUN 85 H Creatinine 2.99 H Est GFR ( Amer) 19 L Est GFR (Non-Af Amer) 16 L Glucose 159 H Lactic Acid 1.1 Calcium 9.9 Total Bilirubin 0.5 AST 44 H ALT 36 Alkaline Phosphatase 105 Total Protein 6.5 Albumin 3.7 Urine Color Urine Appearance Urine pH Ur Specific Tram Urine Protein Urine Glucose (UA) Urine Ketones Urine Blood Urine Nitrite Ur Leukocyte Esterase Urine WBC (Auto) Urine RBC (Auto) 01/12/19 01/12/19 07:35 08:00 WBC RBC Hgb Hct MCV MCH MCHC RDW Plt Count Seg Neutrophils % Lymphocytes % Monocytes % Eosinophils % Basophils % Absolute Neutrophils Absolute Lymphocytes Absolute Monocytes Absolute Eosinophils Absolute Basophils Carbonic Acid 1.33 HCO3/H2CO3 Ratio 21:1 ABG pH 7.43 ABG pCO2 44.1 ABG pO2 81.6 ABG HCO3 28.7 H ABG O2 Saturation 96.3 ABG Base Excess 3.8 FiO2 1L Sodium Potassium Chloride Carbon Dioxide Anion Gap BUN Creatinine Est GFR ( Amer) Est GFR (Non-Af Amer) Glucose Lactic Acid Calcium Total Bilirubin AST ALT Alkaline Phosphatase Total Protein Albumin Urine Color YELLOW Urine Appearance CLEAR Urine pH 6.0 Ur Specific Tram 1.010 Urine Protein NEGATIVE Urine Glucose (UA) NEGATIVE Urine Ketones NEGATIVE Urine Blood NEGATIVE Urine Nitrite NEGATIVE Ur Leukocyte Esterase MODERATE H Urine WBC (Auto) 14 Urine RBC (Auto) 0 Impressions: Chest X-Ray 01/12/19 00:32 IMPRESSION: No acute cardiopulmonary process copyright 2011 [employer]- All Rights Reserved Assessment & Plan - Diagnosis (1) Diabetic foot ulcer Qualifiers: Diabetic foot ulcer location: toe Diabetes mellitus type: type 2 Laterality: right Is this a current diagnosis for this admission?: Yes Plan: Appears to be an acute on chronic issue, worse over past 1 weeks with increased pain and drainage - Per chart review has been following with podiatry and on multiple antibiotics for this issue - Given fevers and exam findings, concern for acute process - Blood cultures obtained in ED - Repeat labs in AM - Right foot xray ordered: previous xray c/f early osteo - Continue empiric coverage with Vanc/Zoysn for now - Consult general surgery, consideration for I&D vs. amputation - Check HgA1c in AM, will need to keep close monitoring of blood sugars (2) CKD (chronic kidney disease) stage 4, GFR 15-29 ml/min Is this a current diagnosis for this admission?: Yes Plan: Adjust medications per renal indications (3) Diabetes mellitus type 2 in obese Is this a current diagnosis for this admission?: Yes Plan: Will check HgA1c - Start home lantus 60U qHS - Start LDISS - Adjust as necessary - Given peripheral neuropathy, will re-start Lyrica (4) Obstructive sleep apnea Is this a current diagnosis for this admission?: Yes Plan: History of hypercapnea per chart review - Ordered CPAP at night (5) Physical deconditioning Is this a current diagnosis for this admission?: Yes Plan: Due to multiple medical problems - Will consult PT for evaluation once acute issues have resolved - Time Time Spent: Greater than 70 Minutes Critical Time spent with patient: 15-24 minutes Anticipated discharge: SNF - Inpatient Certification Medical Necessity: Need Close Monitoring Due to Risk of Patient Decompensation, Need For IV Fluids, Need for IV Antibiotics
[2019-01-12] MEDS ORDERED: ENOXAPARIN SODIUM INJ 30 MG/0.3 ML DISP.SYRIN SUBCUT SCH (12:00)
[2019-01-12] MEDS: SENNOSIDES/DOCUSATE 8.6-50 MG 1 EACH TABLET PO SCH (13:09)
[2019-01-12] MEDS: BUDESONIDE NEB 0.5 MG/2 ML AMPUL NEB SCH ×2 (13:09→20:51)
[2019-01-12] MEDS: LISINOPRIL 10 MG TABLET PO SCH (13:09)
[2019-01-12] MEDS: AMLODIPINE BESYLATE 5 MG TABLET PO SCH (13:12)
[2019-01-12] MEDS: PIPERACILLIN SODIUM/TAZOBACTAM 2.25 GM in NORMAL SALINE 50 ML IV SCH ×2 (13:13→22:23)
[2019-01-12] MEDS: 1/2 NORMAL SALINE 1,000 ML IV PRN (14:06)
[2019-01-12] MEDS: NYSTATIN TOPICAL POWDER 15 GM TP SCH (14:07)
--- NOTE | 2019-01-12 14:37 | RADIOLOGY REPORT (SQ) ---
EXAM DESCRIPTION: FOOT RIGHT 2 VIEWS COMPLETED DATE/TIME: 01/12/2019 10:11 am REASON FOR STUDY: right 1st toe acute on chronic ulcer COMPARISON: Right toe x-ray 11/25/2017. NUMBER OF VIEWS: Three views. TECHNIQUE: AP, lateral and oblique radiographic images acquired of the right foot. LIMITATIONS: None. FINDINGS: MINERALIZATION: Osteopenia. BONES: There is cortical irregularity at the tuft of the 1st distal phalanx. There is a healed fract ure of the 5th metatarsal. Otherwise, no evidence for acute fracture or dislocation. SOFT TISSUES: Skin gap at the tip of the 1st toe, probably corresponding to known ulcer. Diffuse so ft tissue swelling. Vascular calcifications are noted. IMPRESSION: Osteopenia and diffuse soft tissue swelling. Soft tissue ulcer at the tip of the 1st to e with cortical irregularity at the tuft of the 1st distal phalanx, osteomyelitis cannot be excluded. If clinical concern persists, MRI can be obtained for further evaluation. TECHNICAL DOCUMENTATION: JOB ID: [id number] [employer]- All Rights Reserved Reading location - IP/workstation name: [email or web address]
[2019-01-12] MEDS ORDERED: DEXTROSE 50%-WATER 25 GM/50 ML DISP.SYRIN IV PRN ×4 (14:38→16:50)
[2019-01-12] MEDS ORDERED: GLUCAGON,HUMAN RECOMB 1 MG INJ IM PRN (14:38)
[2019-01-12] MEDS ORDERED: DEXTROSE 40% GEL 15 GM TUBE PO PRN ×4 (14:38→16:50)
[2019-01-12] MEDS: CETIRIZINE 5 MG TABLET PO SCH (15:44)
[2019-01-12] MEDS: LEVOTHYROXINE SODIUM 0.088 MG TABLET PO SCH (15:44)
[2019-01-12] MEDS ORDERED: GLUCAGON,HUMAN RECOMB 1 MG INJ SUBCUT PRN (16:50)
--- NOTE | 2019-01-12 17:17 | PDOC CONSULTATION ---
History of Present Illness Admission Date/PCP: 01/12/19 09:54 RAO PAGE MD Patient complains of: right great toe osteomyelitis with open ulceratoin History of Present Illness: LORETO JOSHI is a 68 year old female with history of multiple medical problems including morbid obesity, DM with peripheral neuropathy, chronic infections including foot ulcers, UTIs, C. diff, HTN who presents from assisted living facility with increased 1st R toe pain, drainage, and erythema. Per discussion with pt and chart review, she had long standing history of diabetic foot ulcers dating back to 2017. She follows with Dr. Angel (podiatry). She has had multiple I&Ds and has been on antibiotics previously. States that pain has increased in the past week. She also notes increased drainage including pus and blood. Systemically pt admits to fevers. An X-ray of the right foot has been done and it shows osteomyelitis of the great toe distal phalanx. Past Medical History Cardiac Medical History: Reports: Atrial Fibrillation - Paroxysmal, Congestive Heart Failure, Coronary Artery Disease, Myocardial Infarction, Hyperlipidema, Hypertension Denies: DVT, Pulmonary Embolism Pulmonary Medical History: Reports: Chronic Obstructive Pulmonary Disease (COPD), Pneumonia, Sleep Apnea Denies: Asthma, Bronchitis Neurological Medical History: Denies: Migraine, Seizures Endocrine Medical History: Reports: Diabetes Mellitus Type 2, Hypothyroidism Denies: Diabetes Mellitus Type 1, Hyperthyroidism Renal/ Medical History: Reports: End Stage Renal Disease Malignancy Medical History: Reports: Cervical Cancer GI Medical History: Denies: Cirrhosis, Hepatitis Musculoskeltal Medical History: Reports: Arthritis, Gout Skin Medical History: Denies: Eczema, Psoriasis Psychiatric Medical History: Reports: Depression Hematology: Reports: Anemia Denies: Bleeding Tendencies Infectious Medical History: Reports: Clostridium Difficile - History of severe persistent C. difficile while in [place] and underwent fec Past Surgical History Past Surgical History: Reports: Appendectomy, Section, Cholecystectomy, Herniorrhaphy, Other - Breast cyst, history of fecal transplant for C. difficile Denies: Hysterectomy Social History Lives with: [facility] Smoking Status: Unknown if Ever Smoked Frequency of Alcohol Use: None Hx Recreational Drug Use: No Drugs: None Hx Prescription Drug Abuse: No Family History Family History: CAD, DM, Hypertension, Malignancy, Thyroid Disfunction Parental Family History Reviewed: Yes Children Family History Reviewed: No Sibling(s) Family History Reviewed.: No Medication/Allergy Home Medications: Atorvastatin Calcium [Lipitor 20 mg Tablet] 20 mg PO QHS 10/17/18 Carvedilol [Coreg 12.5 mg Tablet] 12.5 mg PO Q12 10/17/18 Clobetasol Propionate [Temovate Solution] 1 applic TOP QHS MDD SCALP & EAR LOBES 10/17/18 Docusate Sodium [Colace 100 mg Capsule] 100 mg PO QAM 10/17/18 Fluticasone Propionate [Flonase Nasal [place] 50 Mcg/[place] 16 gm] 2 spray NASL QAM 10/17/18 Furosemide [Lasix 80 mg Tablet] 80 mg PO BID 10/17/18 Levothyroxine Sodium 88 mcg PO Q6AM 10/17/18 Lifitegrast [Xiidra] 1 drop OU BID 10/17/18 Ondansetron HCl [Zofran 4 mg Tablet] 4 mg PO Q8HP PRN 10/17/18 Phenol [Chloraseptic] 2 sprays PO BIDP PRN 10/17/18 Pimecrolimus [Elidel] 1 applic TOP BID MDD FACE & EARS FOR FLAKY SKIN 10/17/18 Potassium Chloride [K-Tab ER] 20 meq PO BID 10/17/18 Pregabalin [Lyrica 100 mg Capsule] 100 mg PO Q8 10/17/18 Ranitidine HCl [Zantac 150 mg Tablet] 75 mg PO BID 10/17/18 Sodium Chloride [Saline Mist] 1 spray NASL ACHS 10/17/18 Tramadol HCl [Ultram 50 mg Tablet] 50 mg PO Q4HP PRN 10/17/18 Trazodone HCl [Desyrel 50 mg Tablet] 25 mg PO QHS 10/17/18 Amlodipine Besylate [Norvasc 5 mg Tablet] 5 mg PO DAILY #30 tablet 10/25/18 Aspirin [Ecotrin 81 mg EC Tablet] 81 mg PO DAILY #30 tabec 10/25/18 Budesonide [Pulmicort Neb 0.5 mg/2 ml Ampul] 0.5 mg NEB RTQ12 #60 ampul.neb 10/25/18 Cetirizine HCl [Zyrtec 5 mg Tablet] 5 mg PO QAM #30 tablet 10/25/18 Cholecalciferol (Vitamin D3) [Vitamin D3 1000 Unit Tablet] 5,000 unit PO DAILY tablet 12/20/18 Famotidine [Pepcid 20 mg Tablet] 20 mg PO QHS #30 tablet 10/25/18 Ferrous Sulfate [Feosol 325 mg Tablet] 325 mg PO DAILY #0 tablet 10/25/18 Insulin Glargine,Hum.rec.anlog [Lantus Insulin 100 Unit/1 ml 10 ml] 60 unit SUBCUT BID #1 unit 10/25/18 Insulin Regular, Human [Humulin R (Reg) Insulin 100 unit/mL] 0 - 12 unit SUBCUT ACHSP PRN #1 vial 10/25/18 Lisinopril [Prinivil 10 mg Tablet] 10 mg PO DAILY #30 tablet 10/25/18 Albuterol Sulfate [Proventil 0.5% Neb 2.5 mg/0.5 ml Vial.neb] 2.5 mg NEB RTQ4HP PRN 10/28/18 Ketotifen Fumarate [Zaditor] 1 drop OU BID 01/12/19 Sennosides [Senna] 8.6 mg PO DAILY 01/12/19 Tamsulosin HCl [Flomax 0.4 mg Cap.sr] 0.4 mg PO QHS 01/12/19 Allergies/Adverse Reactions: No Known Allergies Allergy (Verified 03/15/18 15:04) Physical Exam Vital Signs: Temp Pulse Resp BP Pulse Ox 98.9 F 16 137/49 H 94 01/12/19 14:53 01/12/19 15:03 01/12/19 15:03 01/12/19 15:03 Intake & Output 01/11/19 01/12/19 01/13/19 06:59 06:59 07:59 Intake Total 50 Balance 50 Weight 137 kg General appearance: PRESENT: no acute distress Head exam: PRESENT: atraumatic Eye exam: PRESENT: EOMI Mouth exam: PRESENT: dry mucosa, neck supple Neck exam: PRESENT: full ROM Respiratory exam: PRESENT: clear to auscultation emperatriz Cardiovascular exam: PRESENT: RRR GI/Abdominal exam: PRESENT: soft, other - obese Extremities exam: PRESENT: +2 edema - bilateral leg/ankle venostasis edema and discoloration Skin exam: PRESENT: other - bilateral anterior leg venostasis ulcers Results Laboratory Results: 01/12/19 00:50 01/12/19 00:50 01/12/19 01/12/19 01/12/19 00:50 00:50 00:50 WBC 8.3 RBC 3.11 L Hgb 9.6 L Hct 28.9 L MCV 93 MCH 30.9 MCHC 33.3 RDW 14.3 H Plt Count 150 Seg Neutrophils % 76.5 Lymphocytes % 12.7 L Monocytes % 9.0 Eosinophils % 0.9 Basophils % 0.9 Absolute Neutrophils 6.3 Absolute Lymphocytes 1.1 Absolute Monocytes 0.7 Absolute Eosinophils 0.1 Absolute Basophils 0.1 Carbonic Acid HCO3/H2CO3 Ratio ABG pH ABG pCO2 ABG pO2 ABG HCO3 ABG O2 Saturation ABG Base Excess FiO2 Sodium 141.0 Potassium 5.1 H Chloride 100 Carbon Dioxide 32 H Anion Gap 9 BUN 85 H Creatinine 2.99 H Est GFR ( Amer) 19 L Est GFR (Non-Af Amer) 16 L Glucose 159 H Lactic Acid 1.1 Calcium 9.9 Total Bilirubin 0.5 AST 44 H ALT 36 Alkaline Phosphatase 105 Total Protein 6.5 Albumin 3.7 Urine Color Urine Appearance Urine pH Ur Specific [place] Urine Protein Urine Glucose (UA) Urine Ketones Urine Blood Urine Nitrite Ur Leukocyte Esterase Urine WBC (Auto) Urine RBC (Auto) 01/12/19 01/12/19 07:35 08:00 WBC RBC Hgb Hct MCV MCH MCHC RDW Plt Count Seg Neutrophils % Lymphocytes % Monocytes % Eosinophils % Basophils % Absolute Neutrophils Absolute Lymphocytes Absolute Monocytes Absolute Eosinophils Absolute Basophils Carbonic Acid 1.33 HCO3/H2CO3 Ratio 21:1 ABG pH 7.43 ABG pCO2 44.1 ABG pO2 81.6 ABG HCO3 28.7 H ABG O2 Saturation 96.3 ABG Base Excess 3.8 FiO2 1L Sodium Potassium Chloride Carbon Dioxide Anion Gap BUN Creatinine Est GFR ( Amer) Est GFR (Non-Af Amer) Glucose Lactic Acid Calcium Total Bilirubin AST ALT Alkaline Phosphatase Total Protein Albumin Urine Color YELLOW Urine Appearance CLEAR Urine pH 6.0 Ur Specific [place] 1.010 Urine Protein NEGATIVE Urine Glucose (UA) NEGATIVE Urine Ketones NEGATIVE Urine Blood NEGATIVE Urine Nitrite NEGATIVE Ur Leukocyte Esterase MODERATE H Urine WBC (Auto) 14 Urine RBC (Auto) 0 Impressions: Foot X-Ray 01/12/19 00:00 IMPRESSION: Osteopenia and diffuse soft tissue swelling. Soft tissue ulcer at the tip of the 1st toe with cortical irregularity at the tuft of the 1st distal phalanx, osteomyelitis cannot be excluded. If clinical concern persists, MRI can be obtained for further evaluation. Chest X-Ray 01/12/19 00:32 IMPRESSION: No acute cardiopulmonary process copyright 2011 [employer] All Rights Reserved Assessment & Plan - Diagnosis (1) Diabetic foot infection Is this a current diagnosis for this admission?: Yes (2) Osteomyelitis of foot, right, acute Is this a current diagnosis for this admission?: Yes - Plan Summary Plan Summary: A/ Elderly female with diabetes, kidney failure, and other medical problems Right great toe distal phalanx osteomyelitis P/ NPO MRI right leg foot to r/o other areas of osteomyelitis affecting the same side foot or leg According to the MRI results, plan is to perform right great amputation or a more extensive amputation according to the MRI results and the patient wishes
[2019-01-12] MEDS ORDERED: CARVEDILOL 12.5 MG TABLET PO SCH (18:00)
[2019-01-12] MEDS: INSULIN LISPRO 100 UNIT/ML 3 ML VIAL SUBCUT SCH ×2 (20:35→22:49)
[2019-01-12] MEDS: INSULIN GLARGINE,HUM.REC.ANLOG 1,000 UNIT/10 ML VIAL (PYX) SUBCUT SCH (20:36)
[2019-01-12] MEDS ORDERED: FUROSEMIDE 80 MG TABLET PO ONE (22:00)
--- NOTE | 2019-01-12 22:18 | EKG REPORT ---
SEVERITY:- NORMAL ECG - SINUS RHYTHM : Confirmed by: Mara Romero MD 12-Jan-2019 22:17:36
[2019-01-12] MEDS: PREGABALIN 100 MG CAPSULE PO SCH (22:26)
[2019-01-12] MEDS: TAMSULOSIN HCL 0.4 MG CAP.SR.24H PO SCH (22:26)
[2019-01-12] MEDS: FUROSEMIDE 80 MG TABLET PO SCH (22:27)
[2019-01-12] MEDS: CARVEDILOL 12.5 MG TABLET PO SCH (22:48)
[2019-01-12] MEDS: VANCOMYCIN HCL 1,250 MG in DEXTROSE 5%-WATER 250 ML IV SCH (22:49)
[2019-01-12] MEDS ORDERED: FUROSEMIDE 80 MG TABLET ONE (23:12)
[2019-01-13] MEDS ORDERED: VANCOMYCIN HCL 1,500 MG in DEXTROSE 5%-WATER 250 ML IV NR (00:30)
[2019-01-13] MEDS: PIPERACILLIN SODIUM/TAZOBACTAM 2.25 GM in NORMAL SALINE 50 ML IV SCH ×3 (05:51→21:33)
[2019-01-13] MEDS: LEVOTHYROXINE SODIUM 0.088 MG TABLET PO SCH (05:51)
[2019-01-13 06:36] LABS: HEMATOCRIT 27.4 % (36.0-47.0); HEMOGLOBIN 9.2 g/dL (12.0-15.5); MEAN CORPUSCULAR HEMOGLOBIN 31.2 pg (27.0-33.4); MEAN CORPUSCULAR HGB CONC 33.5 g/dL (32.0-36.0); MEAN CORPUSCULAR VOLUME 93 fl (80-97); PLATELET COUNT 123 10^3/uL (150-450); RED BLOOD COUNT 2.95 10^6/uL (3.72-5.28); RED CELL DISTRIBUTION WIDTH 14.3 % (11.5-14.0); WHITE BLOOD COUNT 4.7 10^3/uL (4.0-10.5)
[2019-01-13] MEDS: PREGABALIN 100 MG CAPSULE PO SCH ×3 (06:36→22:53)
[2019-01-13] MEDS: 1/2 NORMAL SALINE 1,000 ML IV PRN (06:37)
[2019-01-13 06:58] LABS: ALANINE AMINOTRANSFERASE 59 U/L (9-52); ALBUMIN 3.2 g/dL (3.5-5.0); ALKALINE PHOSPHATASE 91 U/L (38-126); ANION GAP 9 (5-19); ASPARTATE AMINO TRANSFERASE 65 U/L (14-36); BILIRUBIN,DIRECT 0.3 mg/dL (0.0-0.4); BILIRUBIN,TOTAL 0.6 mg/dL (0.2-1.3); BLOOD UREA NITROGEN 67 mg/dL (7-20); CALCIUM 9.9 mg/dL (8.4-10.2); CARBON DIOXIDE 30 mmol/L (22-30); CHLORIDE 103 mmol/L (98-107); GLUCOSE 111 mg/dL (75-110); SODIUM 141.6 mmol/L (137-145); TOTAL PROTEIN 5.8 g/dL (6.3-8.2)
[2019-01-13 07:24] LABS: ABSOLUTE LYMPHOCYTES# (MANUAL) 1.5 10^3/uL (0.5-4.7); ABSOLUTE MONOCYTES # (MANUAL) 0.7 10^3/uL (0.1-1.4); ABSOLUTE NEUTROPHILS# (MANUAL) 2.4 10^3/uL (1.7-8.2); BASOPHILS % (MANUAL) 1 % (0-2); EOSINOPHILS % (MANUAL) 3 % (0-6); LYMPHOCYTES % (MANUAL) 31 % (13-45); MONOCYTES % (MANUAL) 15 % (3-13); SEGMENTED NEUTROPHILS % (MAN) 50 % (42-78); TOTAL CELLS COUNTED 100
[2019-01-13 07:25] LABS: ANISOCYTOSIS SLIGHT; PLATELET COMMENT DECREASED
[2019-01-13] MEDS: BUDESONIDE NEB 0.5 MG/2 ML AMPUL NEB SCH ×2 (08:00→19:12)
[2019-01-13] MEDS ORDERED: LIDOCAINE 1% INJ-PF (10 MG/ML) 30 ML SDV ONE (08:13)
[2019-01-13] MEDS ORDERED: BUPIVACAINE HCL 0.5 % INJ/PF 30 ML SDV ONE (08:13)
[2019-01-13] MEDS ORDERED: FENTANYL CITRATE INJ/PF 100 MCG/2 ML AMPUL ONE (08:38)
[2019-01-13] MEDS ORDERED: LIDOCAINE 2% INJ-PF (100 MG/5 ML) SYRINGE ONE (08:38)
[2019-01-13] MEDS ORDERED: MIDAZOLAM 2 MG/2 ML INJ ONE (08:39)
[2019-01-13] MEDS ORDERED: ONDANSETRON HCL INJ/PF 4 MG/2 ML SDV ONE (08:39)
[2019-01-13] MEDS ORDERED: PROPOFOL INJ 200 MG/20 ML VIAL IV ONE (08:39)
--- NOTE | 2019-01-13 08:45 | RADIOLOGY REPORT (SQ) ---
EXAM DESCRIPTION: MRI RT LOWER EXTREMITY WITHOUT COMPLETED DATE/TIME: 01/12/2019 7:43 pm REASON FOR STUDY: r/o osteo RIGHT foot/leg; scan below knee to toes COMPARISON: None. TECHNIQUE: Multiplanar imaging of the right tibia fibula to include fat and fluid sensitive sequence s. LIMITATIONS: None. FINDINGS: BONE MARROW: No marrow signal alteration. Specifically no marrow replacement or marrow ed raj. No evidence for osteomyelitis. No cortical break through. SOFT TISSUES: Soft tissue inflammation. No abscess. OTHER: No other significant finding. IMPRESSION: NO EVIDENCE FOR OSTEOMYELITIS. TECHNICAL DOCUMENTATION: JOB ID: [id number] [employer]- All Rights Reserved Reading location - IP/workstation name: [email or web address]
[2019-01-13] MEDS ORDERED: FENTANYL CITRATE INJ/PF 100 MCG/2 ML AMPUL IV PRN (09:21)
[2019-01-13] MEDS ORDERED: ONDANSETRON HCL INJ/PF 4 MG/2 ML SDV IV PRN (09:21)
[2019-01-13] MEDS ORDERED: DIPHENHYDRAMINE HCL 50 MG/ML VIAL IV PRN (09:21)
[2019-01-13] MEDS ORDERED: PROMETHAZINE HCL INJ 25 MG/1 ML VIAL IV PRN (09:21)
[2019-01-13] MEDS: INSULIN LISPRO 100 UNIT/ML 3 ML VIAL SUBCUT SCH ×4 (11:05→22:56)
[2019-01-13] MEDS: CARVEDILOL 12.5 MG TABLET PO SCH (11:06)
[2019-01-13] MEDS: CETIRIZINE 5 MG TABLET PO SCH (11:06)
[2019-01-13] MEDS: INSULIN GLARGINE,HUM.REC.ANLOG 1,000 UNIT/10 ML VIAL (PYX) SUBCUT SCH ×2 (11:06→17:34)
[2019-01-13] MEDS: AMLODIPINE BESYLATE 5 MG TABLET PO SCH (11:07)
[2019-01-13] MEDS: LISINOPRIL 10 MG TABLET PO SCH (11:07)
[2019-01-13] MEDS: FUROSEMIDE 80 MG TABLET PO SCH ×2 (11:07→17:33)
[2019-01-13] MEDS: NYSTATIN TOPICAL POWDER 15 GM TP SCH (11:07)
[2019-01-13] MEDS: SENNOSIDES/DOCUSATE 8.6-50 MG 1 EACH TABLET PO SCH (11:08)
[2019-01-13] MEDS: HEPARIN SOD (PORCINE) 5,000 UNIT/ML 1 ML SYRINGE SUBCUT SCH ×2 (14:13→22:53)
--- NOTE | 2019-01-13 14:33 | OPERATIVE REPORT E ---
Operative Report NAME: LORETO JOSHI : 1950 AGE: 68Y DATE OF SURGERY: 01/13/2019 ROOM: 208 PREOPERATIVE DIAGNOSES: 1. GANGRENE, RIGHT GREAT TOE, WITH OSTEOMYELITIS OF THE DISTAL PHALANX OF THE RIGHT GREAT TOE. 2. SEPSIS. 3. CONFUSION. 4. END-STAGE RENAL DISEASE. POSTOPERATIVE DIAGNOSES: 1. GANGRENE, RIGHT GREAT TOE, WITH OSTEOMYELITIS OF THE DISTAL PHALANX OF THE RIGHT GREAT TOE. 2. SEPSIS. 3. CONFUSION. 4. END-STAGE RENAL DISEASE. OPERATIONS: 1. Right great toe amputation. 2. Amputation of distal head, first metatarsal bone. SURGEON: AUBRIE GILLIS M.D. UTILITY OPERATOR: None. ANESTHESIA: MAC provided by anesthesiologist plus 20 mL of 1% lidocaine without epinephrine. ESTIMATED BLOOD LOSS: Less than 2 mL. COMPLICATIONS: None. URINE OUTPUT: Monitored. FLUIDS: 400 mL of crystalloids. INDICATION AND FINDINGS: This is a 68-year-old female with kidney failure, refused dialysis, who has been having a right great toe gangrene for almost 1 year. She has been refusing any aggressive therapy. She presented to the hospital yesterday with confusion, possible sepsis, and a gangrenous right great toe. Osteomyelitis was identified on x-ray. An MRI of the right leg and right foot revealed no additional foci of osteomyelitis in the leg and foot bones. Resection of the right great toe, distal phalanx. The decision was made to perform an amputation of the right great toe. Procedure, risks, benefits, complications discussed with the patient. Consent signed and decided to proceed. PROCEDURE: The procedure was done in the operating room. Patient was left on the hospital bed. The right lower extremity prepped and draped in usual sterile fashion. A tourniquet was applied to the proximal calf. The area of the skin incision located at the base of the great toe was outlined with a surgical marker. Following this, the right foot and ankle were exsanguinated with an Esmarch band. The tourniquet was inflated to 10 mmHg, then the Esmarch band was removed. A 15 blade was used to make a skin incision following the markings applied before. The tissue was then divided with a knife until all the tendons, ligaments surrounding the great toe were divided and the great toe was removed in toto. Following this, a periosteal elevator was utilize to prepare the distal head of the first metatarsal bone. An electric saw was used to amputate the head of the first metatarsal toe. After this, the area was irrigated with normal saline. A quarter-inch Antonette drain was placed deep in the tissues and secured to the skin with a 3-0 nylon suture. The skin edges approximated with deep inverted interrupted 3-0 Vicryl suture. Skin was closed with vertical mattress interrupted 3-0 nylon sutures. Xeroform gauze, fluffed 4 x 4's, Kerlix and Silver bandage were applied. The patient tolerated procedure well and transferred to recovery room in satisfactory condition. DICTATING PHYSICIAN: AUBRIE GILLIS M.D. [id number] PHY#: [id number] ID: [id number] JOB#: [id number] ACCT: [id number] cc:AUBRIE GILLIS M.D. > MTDD
[2019-01-13] MEDS: ACETAMINOPHEN 325 MG TABLET PO PRN ×2 (15:22→19:50)
--- NOTE | 2019-01-13 15:33 | PDOC PROGRESS REPORT ---
Subjective Progress Note for:: 01/13/19 Subjective:: The patient was seen earlier today on rounds. Son is at the bedside active in the patient's care. The patient is finally resting as she has been restless throughout the morning. The patient has remained afebrile. Blood pressures have been in a good range. The patient is to go to the OR today for a right great toe amputation and amputation of the first metatarsal bone. Reason For Visit: ACUTE ON CHRONIC RIGHT TOE INFECTION Physical Exam Vital Signs: Temp Pulse Resp BP Pulse Ox 98.0 F 97 18 116/45 L 99 01/13/19 14:50 01/13/19 14:50 01/13/19 14:50 01/13/19 14:50 01/13/19 14:50 Intake & Output 01/11/19 01/12/19 01/14/19 23:59 23:59 00:59 Intake Total 100 1500 Output Total 610 Balance 100 890 Weight 137 kg 132.8 kg 132.8 kg General appearance: PRESENT: cooperative, morbidly obese, other - Sleepy but arousable. Speech fluent and appropriate. Head exam: PRESENT: atraumatic, normocephalic Mouth exam: PRESENT: dry mucosa Respiratory exam: PRESENT: clear to auscultation emperatriz - anteriorly, unlabored, other - NC in place, difficult examination due to body habitus and positioning Cardiovascular exam: PRESENT: +S1, +S2, other - Distant heart sounds GI/Abdominal exam: PRESENT: soft. ABSENT: tenderness Extremities exam: PRESENT: tenderness, other - Chronic venous stasis bilaterally; right 1st toe ulceration; mild erythema on right LE around ankle. Warm and tender to touch (R>L) Neurological exam: PRESENT: alert, awake, CN II-XII grossly intact. ABSENT: aphasic Psychiatric exam: PRESENT: depressed, flat affect Skin exam: PRESENT: erythema, warm, other - Per above Results Laboratory Results: 01/13/19 01/13/19 05:09 05:09 WBC 4.7 RBC 2.95 L Hgb 9.2 L Hct 27.4 L MCV 93 MCH 31.2 MCHC 33.5 RDW 14.3 H Plt Count 123 L Seg Neutrophils % Not Reportable Lymphocytes % Not Reportable Monocytes % Not Reportable Eosinophils % Not Reportable Basophils % Not Reportable Absolute Neutrophils Not Reportable Absolute Lymphocytes Not Reportable Absolute Monocytes Not Reportable Absolute Eosinophils Not Reportable Absolute Basophils Not Reportable Sodium 141.6 Potassium 4.0 Chloride 103 Carbon Dioxide 30 Anion Gap 9 BUN 67 H Creatinine 2.53 H Est GFR ( Amer) 23 L Est GFR (Non-Af Amer) 19 L Glucose 111 H Calcium 9.9 Total Bilirubin 0.6 AST 65 H ALT 59 H Alkaline Phosphatase 91 Total Protein 5.8 L Albumin 3.2 L Impressions: Foot X-Ray 01/12/19 00:00 IMPRESSION: Osteopenia and diffuse soft tissue swelling. Soft tissue ulcer at the tip of the 1st toe with cortical irregularity at the tuft of the 1st distal phalanx, osteomyelitis cannot be excluded. If clinical concern persists, MRI can be obtained for further evaluation. Lower Extremity MRI 01/12/19 00:00 IMPRESSION: NO EVIDENCE FOR OSTEOMYELITIS. Chest X-Ray 01/12/19 00:32 IMPRESSION: No acute cardiopulmonary process copyright 2011 [employer]- All Rights Reserved Assessment & Plan - Diagnosis (1) Cellulitis Qualifiers: Site of cellulitis: extremity Site of cellulitis of extremity: lower extremity Laterality: right Qualified Code(s): L03.115 - Cellulitis of right lower limb Is this a current diagnosis for this admission?: Yes Plan: Assessment & Plan - Diagnosis (1) Diabetic foot ulcer Qualifiers: Diabetic foot ulcer location: toe Diabetes mellitus type: type 2 Laterality: right Is this a current diagnosis for this admission?: Yes Plan: Appears to be an acute on chronic issue, worse over past 1 weeks with increased pain and drainage - Per chart review has been following with podiatry and on multiple antibiotics for this issue - Given fevers and exam findings, concern for acute process - Blood cultures obtained in ED - Repeat labs in AM - Right foot xray ordered: previous xray c/f early osteo - Continue empiric coverage with Vanc/Zoysn for now - To the OR with surgery. (2) CKD (chronic kidney disease) stage 4, GFR 15-29 ml/min Is this a current diagnosis for this admission?: Yes Plan: Relatively stable. (3) Diabetes mellitus type 2 in obese Is this a current diagnosis for this admission?: Yes Plan: -Continue home lantus 60U qHS -Continue LDISS - Adjust as necessary -Continue Lyrica (4) Obstructive sleep apnea Is this a current diagnosis for this admission?: Yes Plan: History of hypercapnea per chart review - Ordered CPAP at night (5) Physical deconditioning Is this a current diagnosis for this admission?: Yes Plan: Due to multiple medical problems - PT evaluation once acute issues have resolved (5) Morbid obesity with a BMI 52 Is this a current diagnosis for this admission?: Yes Plan: Having encouraged weight reduction - Time Time Spent with patient: 25-34 minutes Medications reviewed and adjusted accordingly: Yes Anticipated discharge: Other Disposition: The patient is a DO NOT RESUSCITATE DO NOT INTUBATE. Pending patient's symptomatology and diagnostic findings will reevaluate as needed.
[2019-01-13] MEDS: NORMAL SALINE 1000 ML 1,000 ML IV PRN (21:33)
[2019-01-13] MEDS: TAMSULOSIN HCL 0.4 MG CAP.SR.24H PO SCH (22:53)
[2019-01-13] MEDS: VANCOMYCIN HCL 1,250 MG in DEXTROSE 5%-WATER 250 ML IV SCH (22:55)
[2019-01-14] MEDS: MORPHINE SULFATE 10 MG/ML INJ IV PRN ×5 (00:10→19:59)
[2019-01-14] MEDS: CARVEDILOL 12.5 MG TABLET PO SCH ×3 (05:21→22:42)
[2019-01-14] MEDS: LEVOTHYROXINE SODIUM 0.088 MG TABLET PO SCH (05:24)
[2019-01-14] MEDS: PREGABALIN 100 MG CAPSULE PO SCH ×3 (05:24→22:44)
[2019-01-14] MEDS: PIPERACILLIN SODIUM/TAZOBACTAM 2.25 GM in NORMAL SALINE 50 ML IV SCH ×3 (05:24→22:44)
[2019-01-14] MEDS: INSULIN LISPRO 100 UNIT/ML 3 ML VIAL SUBCUT SCH ×4 (08:16→22:43)
[2019-01-14] MEDS: CETIRIZINE 5 MG TABLET PO SCH (08:29)
[2019-01-14] MEDS: BUDESONIDE NEB 0.5 MG/2 ML AMPUL NEB SCH ×2 (08:34→19:52)
[2019-01-14] MEDS: SENNOSIDES/DOCUSATE 8.6-50 MG 1 EACH TABLET PO SCH (10:10)
[2019-01-14] MEDS: NYSTATIN TOPICAL POWDER 15 GM TP SCH (10:11)
[2019-01-14] MEDS: INSULIN GLARGINE,HUM.REC.ANLOG 1,000 UNIT/10 ML VIAL (PYX) SUBCUT SCH ×2 (10:17→18:28)
[2019-01-14] MEDS: HEPARIN SOD (PORCINE) 5,000 UNIT/ML 1 ML SYRINGE SUBCUT SCH ×2 (10:22→22:43)
[2019-01-14] MEDS: FUROSEMIDE 80 MG TABLET PO SCH ×2 (12:35→18:29)
[2019-01-14] MEDS: AMLODIPINE BESYLATE 5 MG TABLET PO SCH (12:36)
[2019-01-14] MEDS: LISINOPRIL 10 MG TABLET PO SCH (12:36)
[2019-01-14] MEDS: NORMAL SALINE 1000 ML 1,000 ML IV PRN (14:16)
--- NOTE | 2019-01-14 15:40 | PDOC PROGRESS REPORT ---
Subjective Progress Note for:: 01/14/19 Subjective:: 68 y.o. F with a PMH of morbid obesity, CVA, [place], DM with peripheral neuropathy, chronic infections including foot ulcers, UTIs, C. difficile, HTN, who presented to [facility] 01/12/2019 with increased first right toe pain, drainage and erythema. Patient is seen this morning on rounds, she is resting comfortably in bed. Son is at the bedside. POD#1 amputation of the distal head and first metatarsal bone on the right great toe. Patient states that she feels like her foot is "throbbing" (+) DP pulses to affected leg. The patient is currently treated with 1mg Morphine at a time. Other than pain, the patient has no other complaints at this time. Plan to send the patient to a telemetry unit given her complicated cardiac history. Increase Morphine dose from 1mg to 2mg. Continue IV antibiotics. NWB R foot, will ask for PT/OT eval. Reason For Visit: ACUTE ON CHRONIC RIGHT TOE INFECTION Physical Exam Vital Signs: Temp Pulse Resp BP Pulse Ox 98.6 F 76 20 122/41 L 91 L 01/14/19 11:20 01/14/19 11:20 01/14/19 11:20 01/14/19 11:20 01/14/19 11:20 Intake & Output 01/13/19 01/14/19 01/15/19 06:59 06:59 06:59 Intake Total 1450 1237 Output Total 2230 Balance -780 1237 Weight 135.7 kg General appearance: PRESENT: morbidly obese Eye exam: PRESENT: conjunctiva pink Mouth exam: PRESENT: moist, tongue midline Neck exam: PRESENT: full ROM Respiratory exam: PRESENT: clear to auscultation emperatriz, symmetrical, unlabored Cardiovascular exam: PRESENT: +S1, +S2 Pulses: PRESENT: normal radial pulses, normal dorsalis pedis pul Vascular exam: PRESENT: normal capillary refill GI/Abdominal exam: PRESENT: soft. ABSENT: distended Rectal exam: PRESENT: deferred Extremities exam: PRESENT: pedal edema, +2 edema - lower extremities. ABSENT: full ROM - MORBIDLY OBESE WOMAN WITH REVEN CVA LIVING AT REHAB FACILITY, DOES NOT HAVE FULL ROM Musculoskeletal exam: ABSENT: ambulatory Neurological exam: PRESENT: alert, awake, oriented to person, oriented to place, oriented to time, oriented to situation Psychiatric exam: PRESENT: appropriate affect Skin exam: PRESENT: dry, intact, normal color Results Laboratory Results: 01/13/19 05:09 01/13/19 05:09 01/12/19 08:00 Catheterized Urine Urine Culture - Final 4,000 col/ml Impressions: Foot X-Ray 01/12/19 00:00 IMPRESSION: Osteopenia and diffuse soft tissue swelling. Soft tissue ulcer at the tip of the 1st toe with cortical irregularity at the tuft of the 1st distal phalanx, osteomyelitis cannot be excluded. If clinical concern persists, MRI can be obtained for further evaluation. Lower Extremity MRI 01/12/19 00:00 IMPRESSION: NO EVIDENCE FOR OSTEOMYELITIS. Chest X-Ray 01/12/19 00:32 IMPRESSION: No acute cardiopulmonary process copyright 2011 [employer]- All Rights Reserved Status: Imported from PACS Assessment & Plan - Diagnosis (1) Cellulitis Qualifiers: Site of cellulitis: extremity Site of cellulitis of extremity: lower extremity Laterality: right Qualified Code(s): L03.115 - Cellulitis of right lower limb Is this a current diagnosis for this admission?: Yes Plan: Cellulitis and infected ulcer in diabetic POD # 1 R great toe amputation Continue broad spectrum antibiotic (2) Diabetic foot ulcer Qualifiers: Diabetic foot ulcer location: toe Diabetes mellitus type: type 2 Laterality: right Is this a current diagnosis for this admission?: Yes Plan: Acute on chronic, now POD#1 R great toe removal blood cultures pending Empiric abx coverage Van/Zosyn NWB R foot until directed by surgery (3) CKD (chronic kidney disease) stage 4, GFR 15-29 ml/min Is this a current diagnosis for this admission?: Yes Plan: PMH CKD stage IV Creatinine seems to be close to baseline (4) Diabetes Qualifiers: Diabetes mellitus type: type 2 Diabetes mellitus complication status: with circulatory complication Is this a current diagnosis for this admission?: Yes Plan: PMH DM Accu-Cheks AC at bedtime Insulin sliding scale Continue home dose Lantus Hgb A1c 7.2% We will request fashion consultant sales to meet with patient prior to discharge (5) Morbid obesity Is this a current diagnosis for this admission?: Yes Plan: Weight management with diet (6) Obstructive sleep apnea Is this a current diagnosis for this admission?: Yes Plan: History of hypercapnia per chart review CPAP at night (7) Physical deconditioning Is this a current diagnosis for this admission?: Yes Plan: Due to multiple medical problems, most recently CVA PT OT evaluation (8) Hypertension Qualifiers: Hypertension type: essential hypertension Qualified Code(s): I10 - Esse ntial (primary) hypertension Is this a current diagnosis for this admission?: Yes Plan: PMH HTN Continue home dose antihypertensives - Time Time Spent with patient: 15-24 minutes Medications reviewed and adjusted accordingly: Yes Anticipated discharge: Home Within: within 24 hours - Inpatient Certification Based on my medical assessment, after consideration of the patient's comorbidities, presenting symptoms, or acuity I expect that the services needed warrant INPATIENT care.: Yes I certify that my determination is in accordance with my understanding of Medicare's requirements for reasonable and necessary INPATIENT services [42 CFR 412.3e].: Yes Medical Necessity: Need for IV Antibiotics, Risk of Complication if Not Cared For in Hospital
--- NOTE | 2019-01-14 16:20 | PDOC PROGRESS REPORT ---
Subjective Progress Note for:: 01/14/19 Subjective:: No complaints Reason For Visit: ACUTE ON CHRONIC RIGHT TOE INFECTION Physical Exam Vital Signs: Temp Pulse Resp BP Pulse Ox 98.6 F 76 20 122/41 L 91 L 01/14/19 11:20 01/14/19 11:20 01/14/19 11:20 01/14/19 11:20 01/14/19 11:20 Intake & Output 01/13/19 01/14/19 01/15/19 06:59 06:59 06:59 Intake Total 1450 1237 Output Total 2230 Balance -780 1237 Weight 135.7 kg General appearance: PRESENT: no acute distress Musculoskeletal exam: PRESENT: other - Dressing removed; old, liquefied blood coming out of the York drain at the amputation site. Some tenderness. No cellulitis or foul smell. Results Laboratory Results: 01/13/19 05:09 01/13/19 05:09 01/12/19 08:00 Catheterized Urine Urine Culture - Final 4,000 col/ml Impressions: Foot X-Ray 01/12/19 00:00 IMPRESSION: Osteopenia and diffuse soft tissue swelling. Soft tissue ulcer at the tip of the 1st toe with cortical irregularity at the tuft of the 1st distal phalanx, osteomyelitis cannot be excluded. If clinical concern persists, MRI can be obtained for further evaluation. Lower Extremity MRI 01/12/19 00:00 IMPRESSION: NO EVIDENCE FOR OSTEOMYELITIS. Chest X-Ray 01/12/19 00:32 IMPRESSION: No acute cardiopulmonary process copyright 2011 [employer]- All Rights Reserved Assessment & Plan - Diagnosis (1) Amputation toe Is this a current diagnosis for this admission?: Yes Plan: Impression: Satisfactory early postoperative course in this high risk patient status post closed amputation with York drain Recommendations: 1. Leave Antonette drain in today, consider extraction tomorrow 2. Patient is a nonambulator; may change surgical boot for pivoting. 3. We will check on patient in 24 hours.
[2019-01-14] MEDS: ACETAMINOPHEN 325 MG TABLET PO PRN (16:40)
[2019-01-14] MEDS: TAMSULOSIN HCL 0.4 MG CAP.SR.24H PO SCH (22:44)
[2019-01-14] MEDS ORDERED: VANCOMYCIN HCL INJ 1000 MG VIAL ONE (23:32)
[2019-01-14] MEDS ORDERED: VANCOMYCIN HCL INJ 500 MG VIAL ONE (23:32)
[2019-01-15] MEDS: VANCOMYCIN HCL 1,250 MG in DEXTROSE 5%-WATER 250 ML IV SCH ×2 (00:06→22:28)
[2019-01-15] MEDS: ACETAMINOPHEN 325 MG TABLET PO PRN (00:13)
[2019-01-15] MEDS: LEVOTHYROXINE SODIUM 0.088 MG TABLET PO SCH (06:08)
[2019-01-15] MEDS: PREGABALIN 100 MG CAPSULE PO SCH ×3 (06:08→21:16)
[2019-01-15] MEDS: PIPERACILLIN SODIUM/TAZOBACTAM 2.25 GM in NORMAL SALINE 50 ML IV SCH ×3 (06:08→21:17)
--- NOTE | 2019-01-15 08:02 | PDOC PROGRESS REPORT ---
Subjective Progress Note for:: 01/15/19 Reason For Visit: ACUTE ON CHRONIC RIGHT TOE INFECTION post op rt 5th toe amp c/o some pain Physical Exam Vital Signs: Temp Pulse Resp BP Pulse Ox 99.3 F 74 20 109/45 L 98 01/15/19 00:00 01/15/19 02:00 01/15/19 00:00 01/15/19 00:00 01/15/19 00:00 Intake & Output 01/14/19 01/15/19 01/16/19 06:59 06:59 06:59 Intake Total 1450 2587 Output Total 2230 950 Balance -780 1637 Weight 135.7 kg 136.9 kg General appearance: PRESENT: morbidly obese Head exam: PRESENT: atraumatic Eye exam: PRESENT: EOMI Mouth exam: PRESENT: dry mucosa Respiratory exam: PRESENT: clear to auscultation emperatriz Cardiovascular exam: PRESENT: RRR Pulses: PRESENT: +1 pedal pulses bilateral, +2 pedal pulses bilateral Vascular exam: PRESENT: normal capillary refill, other - rt foot with good cap refill wound clean] gareth removed. Rectal exam: PRESENT: deferred Extremities exam: PRESENT: other - rt toe amp site clean] no cellulitis drain removed. Skin exam: PRESENT: dry Results Laboratory Results: 01/13/19 05:09 01/13/19 05:09 01/12/19 08:00 Catheterized Urine Urine Culture - Final 4,000 col/ml Impressions: Foot X-Ray 01/12/19 00:00 IMPRESSION: Osteopenia and diffuse soft tissue swelling. Soft tissue ulcer at the tip of the 1st toe with cortical irregularity at the tuft of the 1st distal phalanx, osteomyelitis cannot be excluded. If clinical concern persists, MRI can be obtained for further evaluation. Lower Extremity MRI 01/12/19 00:00 IMPRESSION: NO EVIDENCE FOR OSTEOMYELITIS. Chest X-Ray 01/12/19 00:32 IMPRESSION: No acute cardiopulmonary process copyright 2011 [employer] All Rights Reserved Assessment & Plan - Plan Summary Plan Summary: wound clean, drain removed will start pt out of bed ok to pivot on heel of rt foot.
[2019-01-15] MEDS: MORPHINE SULFATE 10 MG/ML INJ IV PRN (08:04)
[2019-01-15] MEDS ORDERED: MORPHINE SULFATE 10 MG/ML INJ IV PRN (08:36)
[2019-01-15] MEDS: BUDESONIDE NEB 0.5 MG/2 ML AMPUL NEB SCH ×2 (08:46→20:13)
[2019-01-15] MEDS: INSULIN GLARGINE,HUM.REC.ANLOG 1,000 UNIT/10 ML VIAL (PYX) SUBCUT SCH ×2 (09:25→17:40)
[2019-01-15] MEDS: FUROSEMIDE 80 MG TABLET PO SCH ×2 (09:26→17:40)
[2019-01-15] MEDS: LISINOPRIL 10 MG TABLET PO SCH (09:26)
[2019-01-15] MEDS: CARVEDILOL 12.5 MG TABLET PO SCH ×2 (09:26→21:19)
[2019-01-15] MEDS: SENNOSIDES/DOCUSATE 8.6-50 MG 1 EACH TABLET PO SCH (09:26)
[2019-01-15] MEDS: AMLODIPINE BESYLATE 5 MG TABLET PO SCH (09:26)
[2019-01-15] MEDS: INSULIN LISPRO 100 UNIT/ML 3 ML VIAL SUBCUT SCH ×4 (09:27→22:28)
[2019-01-15] MEDS: CETIRIZINE 5 MG TABLET PO SCH (09:39)
[2019-01-15] MEDS: NYSTATIN TOPICAL POWDER 15 GM TP SCH (10:05)
[2019-01-15] MEDS: HEPARIN SOD (PORCINE) 5,000 UNIT/ML 1 ML SYRINGE SUBCUT SCH ×2 (11:44→21:19)
[2019-01-15] MEDS: NORMAL SALINE 1000 ML 1,000 ML IV PRN (13:40)
--- NOTE | 2019-01-15 15:51 | PDOC PROGRESS REPORT ---
Subjective Progress Note for:: 01/15/19 Subjective:: 68 y.o. F with a PMH of morbid obesity, CVA, [place], DM with peripheral neuropathy, chronic infections including foot ulcers, UTIs, C. difficile, HTN, who presented to [facility] 01/12/2019 with increased first right toe pain, drainage and erythema now POD #2 amputation of the distal head and first metatarsal bone on the right great toe. She is seen on afternoon rounds with her son present. She is found resting in bed comfortably on her baseline oxygen requirement. She reports continued foot discomfort, however, does state that pain medications are adequate. The patient's primary concern today is regarding discharge to SNF; she reports that she is concerned they will not provide appropriate wound care at that facility. She is encouraged to be her own advocate and to ensure appropriate dressing changes. She is offered an opportunity to meet with discharge planning to discuss alternate SNF facilities which she promptly declined. Patient's son requests consultation with Dr. Day; reportedly the patient missed a routine follow-up appointment yesterday due to her admission. She denies fever, chills, chest pain, palpitations, dyspnea, orthopnea, abdominal pain, nausea vomiting or diarrhea. They have no other questions or concerns at this time. No concerns per nursing. Reason For Visit: ACUTE ON CHRONIC RIGHT TOE INFECTION Physical Exam Vital Signs: Temp Pulse Resp BP Pulse Ox 98.8 F 68 12 109/32 L 98 01/15/19 11:21 01/15/19 14:00 01/15/19 11:21 01/15/19 11:21 01/15/19 11:21 Intake & Output 01/14/19 01/15/19 01/16/19 06:59 06:59 06:59 Intake Total 1450 3587 50 Output Total 2230 950 Balance -780 2637 50 Weight 135.7 kg 136.9 kg General appearance: PRESENT: no acute distress, morbidly obese, well-developed Head exam: PRESENT: atraumatic, normocephalic Eye exam: PRESENT: conjunctiva pink, EOMI, PERRLA. ABSENT: scleral icterus Mouth exam: PRESENT: moist, tongue midline Neck exam: ABSENT: carotid bruit, JVD, lymphadenopathy, thyromegaly Respiratory exam: PRESENT: clear to auscultation emperatriz, symmetrical, unlabored, other - Baseline oxygen requirement. ABSENT: rales, rhonchi, wheezes Cardiovascular exam: PRESENT: RRR. ABSENT: diastolic murmur, rubs, systolic murmur Pulses: PRESENT: normal dorsalis pedis pul Vascular exam: PRESENT: normal capillary refill GI/Abdominal exam: PRESENT: normal bowel sounds, soft, other - Exam limited se condary to body habitus. ABSENT: tenderness Rectal exam: PRESENT: deferred Extremities exam: PRESENT: full ROM, +1 edema - BLE. ABSENT: calf tenderness, clubbing, pedal edema Musculoskeletal exam: PRESENT: other - Stand and pivot with assistive device and physical therapy today. At baseline, patient is ambulatory short distances with front wheel walker. Neurological exam: PRESENT: alert, awake, oriented to person, oriented to place, oriented to time, oriented to situation, CN II-XII grossly intact. ABSENT: motor sensory deficit Psychiatric exam: PRESENT: flat affect, normal mood. ABSENT: homicidal ideation, suicidal ideation Skin exam: PRESENT: dry, intact, rash - Jamee to skin folds, warm. ABSENT: cyanosis Results Laboratory Results: 01/13/19 05:09 01/13/19 05:09 Impressions: Foot X-Ray 01/12/19 00:00 IMPRESSION: Osteopenia and diffuse soft tissue swelling. Soft tissue ulcer at the tip of the 1st toe with cortical irregularity at the tuft of the 1st distal phalanx, osteomyelitis cannot be excluded. If clinical concern persists, MRI can be obtained for further evaluation. Lower Extremity MRI 01/12/19 00:00 IMPRESSION: NO EVIDENCE FOR OSTEOMYELITIS. Chest X-Ray 01/12/19 00:32 IMPRESSION: No acute cardiopulmonary process copyright 2011 [employer]- All Rights Reserved Assessment & Plan - Diagnosis (1) Cellulitis Qualifiers: Site of cellulitis: extremity Site of cellulitis of extremity: lower extremity Laterality: right Qualified Code(s): L03.115 - Cellulitis of right lower limb Is this a current diagnosis for this admission?: Yes Plan: Cellulitis; secondary to acute on chronic foot ulcer in diabetic POD # 2 R great toe amputation Blood cultures negative at 72 hours. Wound care per surgery's expertise. Continue IV Zosyn and vancomycin; patient has been afebrile >48 but currently refusing CBC. Strongly encouraged to allow lab work in the morning. Will discuss with surgery discontinuing IV antibiotics and transitioning to p.o. Per patient's son, continued purulent drainage expressed by surgeon this morning. (2) Diabetic foot ulcer Qualifiers: Diabetic foot ulcer location: toe Diabetes mellitus type: type 2 Laterality: right Is this a current diagnosis for this admission?: Yes Plan: As above. (3) CKD (chronic kidney disease) stage 4, GFR 15-29 ml/min Is this a current diagnosis for this admission?: Yes Plan: PMH CKD stage IV Creatinine seems to be close to baseline (2.30); admitted with Cr 2.99-> 2.53. Has been declining lab work; strongly encouraged. Patient's son requests nephrology consultation; patient reportedly missed an outpatient appointment yesterday. Patient is advised that she will need to have lab work done in order for the consult with nephrology to be productive/meaningful. Dr. Day is consulted. (4) Diabetes Qualifiers: Diabetes mellitus type: type 2 Diabetes mellitus complication status: with circulatory complication Is this a current diagnosis for this admission?: Yes Plan: A1c 7.2%. Patient is placed on a consistent carb diet with Accu-Cheks before meals and at bedtime with insulin for sliding scale coverage. We will continue home dose Lantus. Hypoglycemia protocol in place. The diabetes educator is consulted. (5) Hypertension Qualifiers: Hypertension type: essential hypertension Qualified Code(s): I10 - Essential (primary) hypertension Is this a current diagnosis for this admission?: Yes Plan: Acceptable blood pressures with home dose amlodipine 5 mg daily, carvedilol 12.5 mg every 12 hours, lisinopril 10 mg daily and furosemide 80 mg twice daily. Cardiac diet. (6) Obstructive sleep apnea Is this a current diagnosis for this admission?: Yes Plan: History of GUDELIA and chronic respiratory failure with hypercapnia. Supplemental oxygen as needed with CPAP nightly. (7) Physical deconditioning Is this a current diagnosis for this admission?: Yes Plan: Due to numerous comorbid concerns (morbid obesity, previous CVA, acute on chronic foot wound) PT/OT evaluations. Discharge planning is consult; likely will return to [facility] where she is an established resident. (8) Morbid obesity Is this a current diagnosis for this admission?: Yes Plan: Dietary discretion is advised. - Time Time Spent with patient: 25-34 minutes Medications reviewed and adjusted accordingly: Yes Anticipated discharge: SNF Within: within 72 hours - Once cleared by surgery
[2019-01-15] MEDS: NYSTATIN CREAM 15 GM TP SCH (17:41)
[2019-01-15] MEDS: TAMSULOSIN HCL 0.4 MG CAP.SR.24H PO SCH (21:16)
[2019-01-15 22:18] LABS: VANCOMYCIN,TROUGH 22.8 ug/mL (5.0-20.0)
[2019-01-15] MEDS: OXYCODONE-ACETAMINOPHEN 5-325 MG TABLET PO PRN (22:27)
--- NOTE | 2019-01-15 23:26 | PDOC CONSULTATION ---
Consultation Consult Date: 01/15/19 Attending physician:: MARILEE NGUYỄN Consult reason:: I was asked to see the patient due to chronic kidney disease. History of Present Illness Admission Date/PCP: 01/12/19 09:54 RAO PAGE MD History of Present Illness: LORETO JOSHI is a 68 year old female known to me with history of chronic kidney disease stage IV secondary to diabetic nephropathy and hypertensive nephrosclerosis associated with microalbuminuria, Beatties mellitus type II, hypertension, coronary artery disease, anemia who was admitted on 01/12/2019 because of persistent worsening right big toe pain, bleeding healing for 6 months. Patient underwent amputation of the distal head of the right metatarsal right big toe on 01/13/2019. She also has right leg cellulitis associated with i t which is currently improving after the amputation. When she came in on 01/12/19 she had a BUN of 85, creatinine of 2.94, and estimated GFR of 16. Following day she had a BUN of 67, creatinine of 2.53 EGFR of 19. She has been refusing to have blood draws for the last couple of days. Is producing a good amount of urine output with Moreira catheter insertion on the day of admission. When I saw her about a month ago she had a BUN of 88, creatinine of 3.14 and EGFR of 14 on 12/13/2018. Her Moreira catheter was removed by urologist Dr. Tan prior to that. This was a trial without the Moreira catheter. She does have a possible neurogenic bladder. She missed her follow-up appointment with Dr. Tan last Monday due to this hospitalization. Currently aside from some discomfort over her right big toe patient, she denies any further complaints. Past Medical History Cardiac Medical History: Reports: Atrial Fibrillation - Paroxysmal, CHF- Diastolic, Coronary Artery Disease, Hyperlipidemia, Hypertension-primary, Myocardial Infarction, Pulmonary Embolism Pulmonary Medical History: Reports: Chronic Obstructive Pulmonary Disease ([place] PD), Pneumonia, Sleep Apnea Neurological Medical History: Reports: Ischemic CVA Endocrine Medical History: Reports: Diabetes Mellitus Type 2, Hypothyroidism Complications of Diabetes: Reports: Autonomic Neuropathy, Nephropathy Renal/ Medical History: Reports: Chronic Kidney Disease Stage IV, End Stage Renal Disease, Proteinuria Malignancy Medical History: Reports: Cervical Cancer Musculoskeltal Medical History: Reports: Arthritis, Gout Psychiatric Medical History: Reports: Depression, General Anxiety Disorder Infectious Medical History: Reports: Clostridium Difficile - History of severe persistent C. difficile while in [place] and underwent fec Hematology Medical History: Reports Anemia of Chronic Kidney Disease, Reports Iron Deficiency Anemia Past Surgical History Past Surgical History: Reports: Appendectomy, Section, Cholecystectomy, Herniorrhaphy, Other - Breast cyst, history of fecal transplant for C. difficile Social History Lives with: [facility] Smoking Status: Former Smoker Frequency of Alcohol Use: None Hx Recreational Drug Use: No Drugs: None Hx Prescription Drug Abuse: No - Advance Directive Resuscitation Status: Do Not Resuscitate Family History Family History: DM - Mother, Hypertension - Father Parental Family History Reviewed: Yes Children Family History Reviewed: Yes Sibling(s) Family History Reviewed.: Yes Medication/Allergy Home Medications: Atorvastatin Calcium [Lipitor 20 mg Tablet] 20 mg PO QHS 10/17/18 Carvedilol [Coreg 12.5 mg Tablet] 12.5 mg PO Q12 10/17/18 Clobetasol Propionate [Temovate Solution] 1 applic TOP QHS MDD SCALP & EAR LOBES 10/17/18 Docusate Sodium [Colace 100 mg Capsule] 100 mg PO QAM 10/17/18 Fluticasone Propionate [Flonase Nasal [place] 50 Mcg/[place] 16 gm] 2 spray NASL QAM 10/17/18 Furosemide [Lasix 80 mg Tablet] 80 mg PO BID 10/17/18 Levothyroxine Sodium 88 mcg PO Q6AM 10/17/18 Lifitegrast [Xiidra] 1 drop OU BID 10/17/18 Ondansetron HCl [Zofran 4 mg Tablet] 4 mg PO Q8HP PRN 10/17/18 Phenol [Chloraseptic] 2 sprays PO BIDP PRN 10/17/18 Pimecrolimus [Elidel] 1 applic TOP BID MDD FACE & EARS FOR FLAKY SKIN 10/17/18 Potassium Chloride [K-Tab ER] 20 meq PO BID 10/17/18 Pregabalin [Lyrica 100 mg Capsule] 100 mg PO Q8 10/17/18 Ranitidine HCl [Zantac 150 mg Tablet] 75 mg PO BID 10/17/18 Sodium Chloride [Saline Mist] 1 spray NASL ACHS 10/17/18 Tramadol HCl [Ultram 50 mg Tablet] 50 mg PO Q4HP PRN 10/17/18 Trazodone HCl [Desyrel 50 mg Tablet] 25 mg PO QHS 10/17/18 Amlodipine Besylate [Norvasc 5 mg Tablet] 5 mg PO DAILY #30 tablet 10/25/18 Aspirin [Ecotrin 81 mg EC Tablet] 81 mg PO DAILY #30 tabec 10/25/18 Budesonide [Pulmicort Neb 0.5 mg/2 ml Ampul] 0.5 mg NEB RTQ12 #60 ampul.neb 10/25/18 Cetirizine HCl [Zyrtec 5 mg Tablet] 5 mg PO QAM #30 tablet 10/25/18 Cholecalciferol (Vitamin D3) [Vitamin D3 1000 Unit Tablet] 5,000 unit PO DAILY tablet 10/25/18 Famotidine [Pepcid 20 mg Tablet] 20 mg PO QHS #30 tablet 10/25/18 Ferrous Sulfate [Feosol 325 mg Tablet] 325 mg PO DAILY #0 tablet 10/25/18 Insulin Glargine,Hum.rec.anlog [Lantus Insulin 100 Unit/1 ml 10 ml] 60 unit SUBCUT BID #1 unit 10/25/18 Insulin Regular, Human [Humulin R (Reg) Insulin 100 unit/mL] 0 - 12 unit SUBCUT ACHSP PRN #1 vial 10/25/18 Lisinopril [Prinivil 10 mg Tablet] 10 mg PO DAILY #30 tablet 10/25/18 Albuterol Sulfate [Proventil 0.5% Neb 2.5 mg/0.5 ml Vial.neb] 2.5 mg NEB RTQ4HP PRN 10/28/18 Ketotifen Fumarate [Zaditor] 1 drop OU BID 01/12/19 Sennosides [Senna] 8.6 mg PO DAILY 01/12/19 Tamsulosin HCl [Flomax 0.4 mg Cap.sr] 0.4 mg PO QHS 01/12/19 Allergies/Adverse Reactions: No Known Allergies Allergy (Verified 03/15/18 15:04) Review of Systems All systems: reviewed and no additional remarkable complaints except as stated Review of Systems: Constitutional: ABSENT: chills, fatigue, fever(s), headache(s), weight gain, weight loss Eyes: ABSENT: visual disturbances Ears: ABSENT: hearing changes Cardiovascular: ABSENT: chest pain, dyspnea on exertion, edema, orthropnea, palp itations Respiratory: ABSENT: cough, dyspnea, hemoptysis Gastrointestinal: ABSENT: abdominal pain, constipation, diarrhea, hematemesis, hematochezia, nausea, vomiting Genitourinary: ABSENT: dysuria, hematuria Musculoskeletal: ABSENT: joint swelling; admits right big toe pain Integumentary: ABSENT: rash, wounds Neurological: ABSENT: abnormal gait, abnormal speech, confusion, dizziness, focal weakness, numbness, syncope Psychiatric: ABSENT: anxiety, depression Endocrine: ABSENT: cold intolerance, heat intolerance, polydipsia, polyuria Hematologic/Lymphatic: ABSENT: easy bleeding, easy bruising, lymphadenopathy Physical Exam Vital Signs: Temp Pulse Resp BP Pulse Ox 98.8 F 71 16 129/47 H 98 01/15/19 19:44 01/15/19 20:13 01/15/19 20:13 01/15/19 19:44 01/15/19 20:13 Intake & Output 01/14/19 01/15/19 01/16/19 06:59 06:59 06:59 Intake Total 1450 3587 454 Output Total 2230 950 1350 Balance -780 2637 -896 Weight 135.7 kg 136.9 kg Exam: General appearance: No acute distress, cooperative, well-developed, well- nourished Head exam: PRESENT: atraumatic, normocephalic Eye exam: PRESENT: Conjunctiva slightly pale, EOMI, PERRLA. ABSENT: conjunctival injection, scleral icterus Mouth exam: PRESENT: moist, neck supple, tongue midline Neck exam: PRESENT: full ROM. ABSENT: carotid bruit, JVD, lymphadenopathy, thyromegaly Respiratory exam: PRESENT: clear to auscultation bilaterally. ABSENT: rales, rhonchi, stridor, wheezes Cardiovascular exam: PRESENT: RRR, +S1, +S2. ABSENT: systolic murmur Pulses: PRESENT: normal radial pulses, normal dorsalis pedis pulses GI/Abdominal exam: PRESENT: normal bowel sounds, soft. ABSENT: guarding, mass, tenderness Rectal exam: Deferred Extremities exam: PRESENT: full ROM. Right leg with improved erythema dried scabs, right foot still in bandage. ABSENT: calf tenderness, pedal edema Musculoskeletal: PRESENT: full ROM. ABSENT: deformity Neurological exam: PRESENT: alert, Awake, Oriented to person, Oriented to place, Oriented to time, reflexes normal, CN II-XII grossly intact. ABSENT: motor sensory deficit Psychiatric exam: PRESENT: appropriate affect, normal mood. ABSENT: homicidal ideation, suicidal ideation Skin exam: PRESENT: intact, dry, warm. ABSENT: rash Results Laboratory Results: 01/13/19 05:09 01/15/19 21:40 01/15/19 21:40 Creatinine 1.91 H Est GFR ( Amer) 32 L Est GFR (Non-Af Amer) 26 L Impressions: Foot X-Ray 01/12/19 00:00 IMPRESSION: Osteopenia and diffuse soft tissue swelling. Soft tissue ulcer at the tip of the 1st toe with cortical irregularity at the tuft of the 1st distal phalanx, osteomyelitis cannot be excluded. If clinical concern persists, MRI can be obtained for further evaluation. Lower Extremity MRI 01/12/19 00:00 IMPRESSION: NO EVIDENCE FOR OSTEOMYELITIS. Chest X-Ray 01/12/19 00:32 IMPRESSION: No acute cardiopulmonary process copyright 2011 [employer]- All Rights Reserved Assessment & Plan - Diagnosis (1) Acute kidney injury superimposed on chronic kidney disease Is this a current diagnosis for this admission?: Yes Plan: I think this is due to underlying neurogenic bladder which could be relieved by insertion of Moreira catheter during this admission. I convinced the patient to allow blood draw to repeat kidney function tomorrow morning to confirm this. Discussed this impression with the patient along with her son and daughters at bedside. I also addressed the patient's daughter's questions regarding neurogenic bladder and the timing as to when dialysis would be required. At this point the patient does not need any renal replacement therapy. (2) CKD (chronic kidney disease) stage 4, GFR 15-29 ml/min Is this a current diagnosis for this admission?: Yes Plan: Due to a combination of diabetic nephropathy and hypertensive nephrosclerosis. (3) Neurogenic bladder Is this a current diagnosis for this admission?: Yes Plan: I think the patient needs either an indwelling Moreira catheter or intermittent se lf-catheterization. Advised to reschedule appointment with Dr. Tan, read urologist discharge. (4) Diabetic nephropathy Qualifiers: Diabetes mellitus type: type 2 Qualified Code(s): E11.21 - Type 2 diabetes mellitus with diabetic nephropathy Is this a current diagnosis for this admission?: Yes (5) Hypertensive nephrosclerosis Is this a current diagnosis for this admission?: Yes (6) Diabetic foot ulcer Qualifiers: Diabetic foot ulcer location: toe Diabetes mellitus type: type 2 Laterality: right Is this a current diagnosis for this admission?: Yes Plan: Status post right big toe distal head and right metatarsal amputation, 01/13/2019 (7) Anemia in chronic kidney disease (CKD) Qualifiers: Chronic kidney disease stage: stage 4 (severe) Qualified Code(s): N18.4 - Chronic kidney disease, stage 4 (severe); D63.1 - Anemia in chronic kidney disease; D63.1 - Anemia in chronic kidney disease Is this a current diagnosis for this admission?: Yes Plan: Check iron panel. 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 We will follow patient with you. - Time Time Spent: Greater than 70 Minutes
[2019-01-16 05:17] LABS: ABSOLUTE RETICS # 0.039 10^6/uL (0.028-0.122); HEMATOCRIT 25.5 % (36.0-47.0); HEMOGLOBIN 8.6 g/dL (12.0-15.5); MEAN CORPUSCULAR HEMOGLOBIN 31.2 pg (27.0-33.4); MEAN CORPUSCULAR HGB CONC 33.6 g/dL (32.0-36.0); MEAN CORPUSCULAR VOLUME 93 fl (80-97); PLATELET COUNT 124 10^3/uL (150-450); RED BLOOD COUNT 2.74 10^6/uL (3.72-5.28); RED CELL DISTRIBUTION WIDTH 13.7 % (11.5-14.0); RETICULOCYTE COUNT (AUTO) 1.44 % (0.66-2.85); WHITE BLOOD COUNT 7.2 10^3/uL (4.0-10.5)
[2019-01-16 05:38] LABS: ALBUMIN 3.2 g/dL (3.5-5.0); ANION GAP 6 (5-19); BLOOD UREA NITROGEN 50 mg/dL (7-20); CALCIUM 9.7 mg/dL (8.4-10.2); CARBON DIOXIDE 32 mmol/L (22-30); CHLORIDE 102 mmol/L (98-107); GLUCOSE 142 mg/dL (75-110); IRON(TIBC) 54.7 ug/dL (37-170); PHOSPHORUS 3.8 mg/dL (2.5-4.5); POTASSIUM 4.3 mmol/L (3.6-5.0); SODIUM 140.1 mmol/L (137-145)
[2019-01-16] MEDS: PREGABALIN 100 MG CAPSULE PO SCH ×2 (05:56→13:59)
[2019-01-16] MEDS: LEVOTHYROXINE SODIUM 0.088 MG TABLET PO SCH (05:56)
[2019-01-16] MEDS: PIPERACILLIN SODIUM/TAZOBACTAM 2.25 GM in NORMAL SALINE 50 ML IV SCH ×2 (05:57→13:59)
[2019-01-16] MEDS: NORMAL SALINE 1000 ML 1,000 ML IV PRN (06:01)
[2019-01-16] MEDS: OXYCODONE-ACETAMINOPHEN 5-325 MG TABLET PO PRN ×2 (08:34→14:59)
[2019-01-16] MEDS: CETIRIZINE 5 MG TABLET PO SCH (08:36)
[2019-01-16] MEDS: INSULIN LISPRO 100 UNIT/ML 3 ML VIAL SUBCUT SCH ×3 (08:48→16:06)
[2019-01-16] MEDS: BUDESONIDE NEB 0.5 MG/2 ML AMPUL NEB SCH (08:53)
[2019-01-16] MEDS: NYSTATIN CREAM 15 GM TP SCH (09:29)
[2019-01-16] MEDS: NYSTATIN TOPICAL POWDER 15 GM TP SCH (09:29)
[2019-01-16] MEDS: HEPARIN SOD (PORCINE) 5,000 UNIT/ML 1 ML SYRINGE SUBCUT SCH (09:29)
[2019-01-16] MEDS: INSULIN GLARGINE,HUM.REC.ANLOG 1,000 UNIT/10 ML VIAL (PYX) SUBCUT SCH (09:29)
[2019-01-16] MEDS: AMLODIPINE BESYLATE 5 MG TABLET PO SCH (09:30)
[2019-01-16] MEDS: LISINOPRIL 10 MG TABLET PO SCH (09:30)
[2019-01-16] MEDS: CARVEDILOL 12.5 MG TABLET PO SCH (09:30)
[2019-01-16] MEDS: FUROSEMIDE 80 MG TABLET PO SCH (09:31)
[2019-01-16] MEDS: SENNOSIDES/DOCUSATE 8.6-50 MG 1 EACH TABLET PO SCH (09:31)
[2019-01-16 12:04] VITALS: BP 141/48
--- NOTE | 2019-01-16 12:33 | PDOC PROGRESS REPORT ---
Subjective Progress Note for:: 01/16/19 Reason For Visit: ACUTE ON CHRONIC RIGHT TOE INFECTION Physical Exam Vital Signs: Temp Pulse Resp BP Pulse Ox 98 F 64 20 141/48 H 99 01/16/19 12:00 01/16/19 12:00 01/16/19 12:00 01/16/19 12:00 01/16/19 12:00 Intake & Output 01/15/19 01/16/19 01/17/19 06:59 06:59 06:59 Intake Total 3587 2572 Output Total 950 2250 Balance 2637 322 Weight 136.9 kg 141 kg Results Laboratory Results: 01/16/19 04:57 01/16/19 04:57 01/15/19 01/16/19 01/16/19 21:40 04:57 04:57 WBC 7.2 RBC 2.74 L Hgb 8.6 L Hct 25.5 L MCV 93 MCH 31.2 MCHC 33.6 RDW 13.7 Plt Count 124 L Retic Count (auto) 1.44 Absolute Retic 0.039 Sodium 140.1 Potassium 4.3 Chloride 102 Carbon Dioxide 32 H Anion Gap 6 BUN 50 H Creatinine 1.91 H 2.03 H Est GFR ( Amer) 32 L 29 L Est GFR (Non-Af Amer) 26 L 24 L Glucose 142 H Calcium 9.7 Phosphorus 3.8 Magnesium 1.8 Iron 54.7 TIBC 241 L % Saturation 23 Ferritin 266.00 H Albumin 3.2 L Vitamin B12 331.0 Folate 15.00 PTH Intact 01/16/19 04:57 WBC RBC Hgb Hct MCV MCH MCHC RDW Plt Count Retic Count (auto) Absolute Retic Sodium Potassium Chloride Carbon Dioxide Anion Gap BUN Creatinine Est GFR ( Amer) Est GFR (Non-Af Amer) Glucose Calcium Phosphorus Magnesium Iron TIBC % Saturation Ferritin Albumin Vitamin B12 Folate PTH Intact 159.9 H Impressions: Foot X-Ray 01/12/19 00:00 IMPRESSION: Osteopenia and diffuse soft tissue swelling. Soft tissue ulcer at the tip of the 1st toe with cortical irregularity at the tuft of the 1st distal phalanx, osteomyelitis cannot be excluded. If clinical concern persists, MRI can be obtained for further evaluation. Lower Extremity MRI 01/12/19 00:00 IMPRESSION: NO EVIDENCE FOR OSTEOMYELITIS. Chest X-Ray 01/12/19 00:32 IMPRESSION: No acute cardiopulmonary process copyright 2010 [employer]- All Rights Reserved Assessment & Plan - Diagnosis (1) Diabetic foot infection Is this a current diagnosis for this admission?: Yes - Plan Summary Plan Summary: This is a 68-year-old female status post right great toe amputation for diabetic foot infection. Her wound appears to be healing well. Her sutures are intact. There is no oozing or redness at the incision site. The patient is requesting to place a dressing on the wound (although it is not technically necessary). Dry dressing to foot daily and as needed for cleanliness. Okay to shower. Do not do not place foot underneath a body of water. Follow-up at [facility] in 7-10 days for possible suture removal. I will see the patient again on an as-needed basis. Please renotify with any questions or concerns.
[2019-01-16] MEDS ORDERED: MAGNESIUM CITRATE 296 ML BOTTLE PO ONE (14:52)
[2019-01-16] MEDS ORDERED: BISACODYL 10 MG SUPP.RECT PR ONE (14:53)
--- NOTE | 2019-01-16 14:58 | PDOC TRANSFER SUMMARY ---
Addendum entered and electronically signed by MARILEE NGUYỄN NP-C 01/16/19 16:23: Provider Note Provider Note: Addendum to home medication regiment: Per Dr. Day (Nephrology), patient is to receive Epoetin Torito [Procrit] 20,0 00 units SUBCUT every Monday for anemia of chronic disease. Original Note: General - Admit/Disc Date/PCP Admission Date/Primary Care Provider: 01/12/19 09:54 RAO PAGE MD Discharge Date: 01/16/19 - Discharge Diagnosis (1) Cellulitis Is this a current diagnosis for this admission?: Yes Summary: Resolved. Secondary to acute on chronic foot ulcer in diabetic POD # 3 R great toe amputation Blood cultures negative at 4 days. The patient was initially placed on IV Zosyn and vancomycin. Patient has been afebrile >48, with normal WBC and clinical improvement; no evidence of cellulitis following amputation. No indications for further antibiotic therapy at this time. Recommend close observation; contact PCP or [facility] for any signs or symptoms of developing cellulitis/infection. Follow-up at [facility] in 7-10 days for possible suture removal. Apply dry dressing to foot daily and as needed for cleanliness. Okay to shower. Do NOT place foot underneath a body of water. Do NOT soak feet. Recommend heel weight bearing to right foot. (2) Diabetic foot ulcer Is this a current diagnosis for this admission?: Yes Summary: As above. (3) CKD (chronic kidney disease) stage 4, GFR 15-29 ml/min Is this a current diagnosis for this admission?: Yes Summary: Improved; creatinine 2.05 today. 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 Day, was consulted. Spoke with Dr. Day today, patient is nearing her baseline renal function. Dr. Day recommends chronic indwelling catheter with urology follow-up for management of neurogenic bladder. Follow-up with Dr. Day in 2-3 weeks. (4) Diabetes Is this a current diagnosis for this admission?: Yes Summary: A1c 7.2%. Adequate blood glucose control while admitted. She is discharged on her home medication regiment. (5) Hypertension Is this a current diagnosis for this admission?: Yes Summary: Acceptable blood pressure control on her home medication regiment: amlodipine 5 mg daily, carvedilol 12.5 mg every 12 hours, lisinopril 10 mg daily and furosemide 80 mg twice daily. (6) Obstructive sleep apnea Is this a current diagnosis for this admission?: Yes Summary: Stable. Continue supplemental oxygen as needed with CPAP nightly. (7) Physical deconditioning Is this a current diagnosis for this admission?: Yes Summary: Physical therapy was consulted. Patient is discharged to [facility] for LTC and continued therapy services. (8) Morbid obesity Is this a current diagnosis for this admission?: Yes Summary: Dietary discretion is advised. - Additional Information Resuscitation Status: Do Not Resuscitate Discharge Diet: Cardiac, Diabetic Discharge Activity: Activity As Tolerated, Slowly Increase Activity, Supervised Activity Prescriptions: Oxycodone HCl/Acetaminophen [Percocet 5-325 mg Tablet] 1 tab PO Q6HP PRN #12 tablet PRN Reason: Home Medications: Atorvastatin Calcium [Lipitor 20 mg Tablet] 20 mg PO QHS 10/17/18 Carvedilol [Coreg 12.5 mg Tablet] 12.5 mg PO Q12 10/17/18 Clobetasol Propionate [Temovate Solution] 1 applic TOP QHS MDD SCALP & EAR LOBES 10/17/18 Docusate Sodium [Colace 100 mg Capsule] 100 mg PO QAM 10/17/18 Fluticasone Propionate [Flonase Nasal [place] 50 Mcg/[place] 16 gm] 2 spray NASL QAM 10/17/18 Furosemide [Lasix 80 mg Tablet] 80 mg PO BID 10/17/18 Levothyroxine Sodium 88 mcg PO Q6AM 10/17/18 Lifitegrast [Xiidra] 1 drop OU BID 10/17/18 Ondansetron HCl [Zofran 4 mg Tablet] 4 mg PO Q8HP PRN 10/17/18 Phenol [Chloraseptic] 2 sprays PO BIDP PRN 10/17/18 Pimecrolimus [Elidel] 1 applic TOP BID MDD FACE & EARS FOR FLAKY SKIN 10/17/18 Potassium Chloride [K-Tab ER] 20 meq PO BID 10/17/18 Pregabalin [Lyrica 100 mg Capsule] 100 mg PO Q8 10/17/18 Ranitidine HCl [Zantac 150 mg Tablet] 75 mg PO BID 10/17/18 Sodium Chloride [Saline Mist] 1 spray NASL ACHS 10/17/18 Trazodone HCl [Desyrel 50 mg Tablet] 25 mg PO QHS 10/17/18 Amlodipine Besylate [Norvasc 5 mg Tablet] 5 mg PO DAILY #30 tablet 10/25/18 Aspirin [Ecotrin 81 mg EC Tablet] 81 mg PO DAILY #30 tabec 10/25/18 Budesonide [Pulmicort Neb 0.5 mg/2 ml Ampul] 0.5 mg NEB RTQ12 #60 ampul.neb 10/25/18 Cetirizine HCl [Zyrtec 5 mg Tablet] 5 mg PO QAM #30 tablet 10/25/18 Cholecalciferol (Vitamin D3) [Vitamin D3 1000 Unit Tablet] 5,000 unit PO DAILY tablet 10/25/18 Famotidine [Pepcid 20 mg Tablet] 20 mg PO QHS #30 tablet 10/25/18 Ferrous Sulfate [Feosol 325 mg Tablet] 325 mg PO DAILY #0 tablet 10/25/18 Insulin Glargine,Hum.rec.anlog [Lantus Insulin 100 Unit/1 ml 10 ml] 60 unit SUBCUT BID #1 unit 10/25/18 Insulin Regular, Human [Humulin R (Reg) Insulin 100 unit/mL] 0 - 12 unit SUBCUT ACHSP PRN #1 vial 10/25/18 Lisinopril [Prinivil 10 mg Tablet] 10 mg PO DAILY #30 tablet 10/25/18 Albuterol Sulfate [Proventil 0.5% Neb 2.5 mg/0.5 ml Vial.neb] 2.5 mg NEB RTQ4HP PRN 10/28/18 Ketotifen Fumarate [Zaditor] 1 drop OU BID 01/12/19 Sennosides [Senna] 8.6 mg PO DAILY 01/12/19 Tamsulosin HCl [Flomax 0.4 mg Cap.sr] 0.4 mg PO QHS 01/12/19 Acetaminophen [Tylenol 325 mg Tablet] 325 mg PO Q4HP PRN tablet 01/16/19 Nystatin [Mycostatin Topical Powder 15 gm] 1 applic TP DAILY bottle 01/16/19 Oxycodone HCl/Acetaminophen [Percocet 5-325 mg Tablet] 1 tab PO Q6HP PRN #12 tablet 01/16/19 Sennosides/Docusate 8.6-50 mg [Senna Plus Tablet] 1 each PO DAILY tablet 01/16/19 History of Present Illness Admission Date/PCP: 01/12/19 09:54 RAO PAGE MD History of Present Illness: Per H&P by Dr. Kilgore: LORETO JOSHI is a 68 year old female with history of multiple medical problems including morbid obesity, DM with peripheral neuropathy, chronic infections including foot ulcers, UTIs, C. diff, HTN who presents from assisted living facility with increased 1st R toe pain, drainage, and erythema. Per discussion with pt and chart review, she had long standing history of diabetic foot ulcers dating back to 2017. She follows with Dr. Angel (podiatry). She has had multiple I&Ds and has been on antibiotics previously. States that pain has increased in the past week. She also notes increased drainage including pus and blood. Systemically pt admits to fevers. Appears that there have been discussions in past regarding toe amputation however patient refused due to "not wanting to lose balance without my toe". Blood culture data from [facility] records have been negative except for 1 instance of E. coli that was likely due to urinary source. In ED, patient noted to be sleepy. She has history of UGDELIA and uses CPAP at night. Also has history of hypercapnia. Vitals notable for temperature of 102F. Labs showed no evidence of increased WBC or lactic acid. Blood cultures were obtained and pt started on Vanc/Zoysn. Admitted to hospitalist service for further management. Physical Exam Vital Signs: Temp Pulse Resp BP Pulse Ox 98 F 64 20 141/48 H 99 01/16/19 12:00 01/16/19 12:00 01/16/19 12:00 01/16/19 12:00 01/16/19 12:00 Intake & Output 01/15/19 01/16/19 01/17/19 06:59 06:59 06:59 Intake Total 3587 2572 Output Total 294 2250 Balance 2637 322 Weight 136.9 kg 141 kg General appearance: PRESENT: no acute distress, morbidly obese, well-developed, well-nourished Head exam: PRESENT: atraumatic, normocephalic Eye exam: PRESENT: conjunctiva pink, EOMI, PERRLA. ABSENT: scleral icterus Mouth exam: PRESENT: moist, tongue midline Respiratory exam: PRESENT: clear to auscultation emperatriz, symmetrical, unlabored, other - Baseline oxygen requirement. ABSENT: rales, rhonchi, wheezes Cardiovascular exam: PRESENT: RRR. ABSENT: diastolic murmur, rubs, systolic murmur Pulses: PRESENT: normal dorsalis pedis pul Vascular exam: PRESENT: normal capillary refill GI/Abdominal exam: PRESENT: normal bowel sounds, soft, other - Exam limited secondary to body habitus. ABSENT: distended, guarding, mass, organolmegaly, rebound, tenderness Rectal exam: PRESENT: deferred Gentrourinary exam: PRESENT: indwelling catheter - Chronic Extremities exam: PRESENT: full ROM, other - s/p right great toe amputation. ABSENT: calf tenderness, clubbing, pedal edema Neurological exam: PRESENT: alert, awake, oriented to person, oriented to place, oriented to time, oriented to situation, CN II-XII grossly intact. ABSENT: motor sensory deficit Psychiatric exam: PRESENT: appropriate affect, normal mood. ABSENT: homicidal ideation, suicidal ideation Skin exam: PRESENT: dry, intact, warm. ABSENT: cyanosis, rash Results Laboratory Results: 01/16/19 04:57 01/16/19 04:57 01/15/19 01/16/19 01/16/19 21:40 04:57 04:57 WBC 7.2 RBC 2.74 L Hgb 8.6 L Hct 25.5 L MCV 93 MCH 31.2 MCHC 33.6 RDW 13.7 Plt Count 124 L Retic Count (auto) 1.44 Absolute Retic 0.039 Sodium 140.1 Potassium 4.3 Chloride 102 Carbon Dioxide 32 H Anion Gap 6 BUN 50 H Creatinine 1.91 H 2.03 H Est GFR ( Amer) 32 L 29 L Est GFR (Non-Af Amer) 26 L 24 L Glucose 142 H Calcium 9.7 Phosphorus 3.8 Magnesium 1.8 Iron 54.7 TIBC 241 L % Saturation 23 Ferritin 266.00 H Albumin 3.2 L Vitamin B12 331.0 Folate 15.00 PTH Intact 01/16/19 04:57 WBC RBC Hgb Hct MCV MCH MCHC RDW Plt Count Retic Count (auto) Absolute Retic Sodium Potassium Chloride Carbon Dioxide Anion Gap BUN Creatinine Est GFR ( Amer) Est GFR (Non-Af Amer) Glucose Calcium Phosphorus Magnesium Iron TIBC % Saturation Ferritin Albumin Vitamin B12 Folate PTH Intact 159.9 H Impressions: Foot X-Ray 01/12/19 00:00 IMPRESSION: Osteopenia and diffuse soft tissue swelling. Soft tissue ulcer at the tip of the 1st toe with cortical irregularity at the tuft of the 1st distal phalanx, osteomyelitis cannot be excluded. If clinical concern persists, MRI can be obtained for further evaluation. Lower Extremity MRI 01/12/19 00:00 IMPRESSION: NO EVIDENCE FOR OSTEOMYELITIS. Chest X-Ray 01/12/19 00:32 IMPRESSION: No acute cardiopulmonary process copyright 2010 [employer]- All Rights Reserved Transfer Plan - Disposition Transfer Plan: [facility] for LTC - Time Spent with Patient Time spent with patient: Less than 30 Minutes Qualifiers - * PATIENT BEING DISCHARGED WITH ANY OF THE FOLLOWING DIAGNOSIS: No Plan Discharge Plan: Discharge to [facility] where the patient is an established resident. Follow up with Primary Care Provider within 1 week. Follow-up at [facility] in 7-10 days for possible suture removal. Apply dry dressing to foot daily and as needed for cleanliness. Okay to shower. Do NOT place foot underneath a body of water. Do NOT soak feet. Follow up with Dr. Day in 2-3 weeks. Follow up with established urlogist within 4-6 weeks. Keep Moreira Catheter in place unless specifically directed by Urologist for man agement of urinary retention and neurogenic bladder. Time Spent: Greater than 30 Minutes
[2019-01-16] MEDS ORDERED: EPOETIN ALFA INJ 20000 UNIT/1 ML VIAL (RENAL) SUBCUT ONE (17:30)
--- NOTE | 2019-01-16 20:44 | PDOC PROGRESS REPORT ---
Subjective Progress Note for:: 01/16/19 Subjective:: I saw the patient this afternoon prior to discharge. She was doing well and continues to produce good urine output with the Moreira catheter in. She really does not have any new complaints. Reason For Visit: ACUTE ON CHRONIC RIGHT TOE INFECTION Physical Exam Vital Signs: Temp Pulse Resp BP Pulse Ox 97.8 F 66 20 141/48 H 98 01/16/19 16:00 01/16/19 16:00 01/16/19 16:00 01/16/19 12:00 01/16/19 16:00 Intake & Output 01/15/19 01/16/19 01/17/19 06:59 06:59 06:59 Intake Total 3587 2572 1704 Output Total 950 2250 860 Balance 2637 322 844 Weight 136.9 kg 141 kg Exam: General appearance: PRESENT: no acute distress, cooperative, well-developed, well-nourished Head exam: PRESENT: atraumatic, normocephalic Eye exam: PRESENT: conjunctiva slightly pale, PERRLA. ABSENT: scleral icterus Neck exam: ABSENT: JVD Respiratory exam: PRESENT: Normal breath sounds. ABSENT: crackles, rales, rhonchi, unlabored, wheezes Cardiovascular exam: PRESENT: Regular rate rhythm -+S1, +S2. ABSENT: diastolic murmur, systolic murmur GI/Abdominal exam: PRESENT: normal bowel sounds, soft. ABSENT: guarding, mass, tenderness Extremities exam: ABSENT: No edema Neurological exam: PRESENT: alert, awake, oriented to person, place and time. Skin exam: PRESENT: dry, warm, right leg lesion unchanged and improved, right foot still with bandage Results Laboratory Results: 01/16/19 04:57 01/16/19 04:57 01/15/19 01/16/19 01/16/19 21:40 04:57 04:57 WBC 7.2 RBC 2.74 L Hgb 8.6 L Hct 25.5 L MCV 93 MCH 31.2 MCHC 33.6 RDW 13.7 Plt Count 124 L Retic Count (auto) 1.44 Absolute Retic 0.039 Sodium 140.1 Potassium 4.3 Chloride 102 Carbon Dioxide 32 H Anion Gap 6 BUN 50 H Creatinine 1.91 H 2.03 H Est GFR ( Amer) 32 L 29 L Est GFR (Non-Af Amer) 26 L 24 L Glucose 142 H Calcium 9.7 Phosphorus 3.8 Magnesium 1.8 Iron 54.7 TIBC 241 L % Saturation 23 Ferritin 266.00 H Albumin 3.2 L Vitamin B12 331.0 Folate 15.00 PTH Intact 01/16/19 04:57 WBC RBC Hgb Hct MCV MCH MCHC RDW Plt Count Retic Count (auto) Absolute Retic Sodium Potassium Chloride Carbon Dioxide Anion Gap BUN Creatinine Est GFR ( Amer) Est GFR (Non-Af Amer) Glucose Calcium Phosphorus Magnesium Iron TIBC % Saturation Ferritin Albumin Vitamin B12 Folate PTH Intact 159.9 H Impressions: Foot X-Ray 01/12/19 00:00 IMPRESSION: Osteopenia and diffuse soft tissue swelling. Soft tissue ulcer at the tip of the 1st toe with cortical irregularity at the tuft of the 1st distal phalanx, osteomyelitis cannot be excluded. If clinical concern persists, MRI can be obtained for further evaluation. Lower Extremity MRI 01/12/19 00:00 IMPRESSION: NO EVIDENCE FOR OSTEOMYELITIS. Chest X-Ray 01/12/19 00:32 IMPRESSION: No acute cardiopulmonary process copyright 2011 [employer]- All Rights Reserved Assessment & Plan - Diagnosis (1) Acute kidney injury superimposed on chronic kidney disease Is this a current diagnosis for this admission?: Yes Plan: Currently improved and almost at baseline likely due to urinary retention due to neurogenic bladder and relieved with insertion of Moreira catheter. (2) CKD (chronic kidney disease) stage 4, GFR 15-29 ml/min Is this a current diagnosis for this admission?: Yes (3) Neurogenic bladder Is this a current diagnosis for this admission?: Yes Plan: The patient would benefit with indwelling Moreira catheter or intermittent self- catheterization. Advised patient and children to follow-up with urologist, Dr. Tan post hospitalization. (4) Diabetic nephropathy Qualifiers: Diabetes mellitus type: type 2 Qualified Code(s): E11.21 - Type 2 diabetes mellitus with diabetic nephropathy Is this a current diagnosis for this admission?: Yes (5) Hypertensive nephrosclerosis Is this a current diagnosis for this admission?: Yes (6) Diabetic foot ulcer Qualifiers: Diabetic foot ulcer location: toe Diabetes mellitus type: type 2 Laterality: right Is this a current diagnosis for this admission?: Yes Plan: Continue to follow up with surgery or wound clinic. (7) Anemia in chronic kidney disease (CKD) Qualifiers: Chronic kidney disease stage: stage 4 (severe) Qualified Code(s): N18.4 - Chronic kidney disease, stage 4 (severe); D63.1 - Anemia in chronic kidney disease; D63.1 - Anemia in chronic kidney disease Is this a current diagnosis for this admission?: Yes Plan: Good iron stores. Will give the patient Procrit 20,000 units subcutaneously today prior to discharge. Procrit needs to be continued in the skilled nursing weekly ending on hemoglobin. Procrit needs to be given when hemoglobin is less than 10. (8) Diabetes mellitus, type II Qualifiers: Diabetes mellitus intermission coordinator insulin use: unspecified intermission coordinator insulin use status Diabetes mellitus complication detail: with nephropathy Is this a current diagnosis for this admission?: Yes (9) Hypertension Qualifiers: Hypertension type: essential hypertension Qualified Code(s): I10 - Essential (primary) hypertension Is this a current diagnosis for this admission?: Yes (10) Secondary hyperparathyroidism (of renal origin) Is this a current diagnosis for this admission?: Yes Plan: We will treat as an outpatient. - Notes Notes: Follow-up with me 2-3 weeks post discharge with repeat labs. - Time Time with patient: 15-25 minutes
[2019-01-16] MEDS ORDERED: VANCOMYCIN HCL 1,000 MG in DEXTROSE 5%-WATER 250 ML IV SCH (22:00)
== END 2019-01-16 17:37 | DRG 255 ==
LOC: ER 23:24 → EH 01-12 09:54 → 2N 01-12 19:45 → 4S 01-14 17:13
PROVIDERS: ADMIT Internal Medicine; ATTEND Internal Medicine
PROC: 0Y6R0Z3 Detachment at Right 2nd Toe, Low, Open Approach (ICD-10-PCS; 2019-01-13)
PROC: 0Y6P0Z0 Detachment at Right 1st Toe, Complete, Open Approach (ICD-10-PCS; principal; 2019-01-13 09:00)
DX: E11.52 Type 2 diabetes mellitus with diabetic peripheral angiopathy with gangrene (principal); N18.6 End stage renal disease; I96 Gangrene, not elsewhere classified; I13.2 Hypertensive heart and chronic kidney disease with heart failure and with stage 5 chronic kidney disease, or end stage renal disease; M86.9 Osteomyelitis, unspecified; Z68.43 Body mass index [BMI] 50.0-59.9, adult; N17.9 Acute kidney failure, unspecified; N25.81 Secondary hyperparathyroidism of renal origin; E11.628 Type 2 diabetes mellitus with other skin complications; L03.031 Cellulitis of right toe; E11.621 Type 2 diabetes mellitus with foot ulcer; L97.519 Non-pressure chronic ulcer of other part of right foot with unspecified severity; Z66 Do not resuscitate; I48.0 Paroxysmal atrial fibrillation; E11.22 Type 2 diabetes mellitus with diabetic chronic kidney disease; E11.42 Type 2 diabetes mellitus with diabetic polyneuropathy; I50.9 Heart failure, unspecified; E11.69 Type 2 diabetes mellitus with other specified complication; I25.10 Atherosclerotic heart disease of native coronary artery without angina pectoris; D63.1 Anemia in chronic kidney disease; N31.9 Neuromuscular dysfunction of bladder, unspecified; J44.9 Chronic obstructive pulmonary disease, unspecified; E03.9 Hypothyroidism, unspecified; E78.00 Pure hypercholesterolemia, unspecified; G47.33 Obstructive sleep apnea (adult) (pediatric); M10.9 Gout, unspecified; M19.90 Unspecified osteoarthritis, unspecified site; E66.01 Morbid (severe) obesity due to excess calories; I25.2 Old myocardial infarction; Z79.2 Long term (current) use of antibiotics; Z79.82 Long term (current) use of aspirin; Z79.4 Long term (current) use of insulin; Z79.51 Long term (current) use of inhaled steroids; Z79.899 Other long term (current) drug therapy
CPT/HCPCS: 01480; 36415; 71045; 80048; 80053; 80202; 81001; 82040; 82306; 82565; 82607; 82728; 82746; 82803; 82962; 83036; 83540; 83550; 83605; 83735; 83970; 84100; 85025; 85027; 85045; 87040; 87086; 88305; 88311; 93005; 93010; 94640; 94660; 96365; 96366; 96367; 99285; J1644; J1650; J1815; J2001; J2250; J2270; J2405; J2543; J2704; J3010; J3370; J3490; J7030; J7060; Q4081

== ENCOUNTER 2019-01-17 10:21 | Inpatient (IN) | payer MEDICARE, MEDICAID ==
[2019-01-17 10:53] LABS: HEMATOCRIT 30.7 % (36.0-47.0); HEMOGLOBIN 10.1 g/dL (12.0-15.5); MEAN CORPUSCULAR HEMOGLOBIN 30.7 pg (27.0-33.4); MEAN CORPUSCULAR VOLUME 93 fl (80-97); PLATELET COUNT 208 10^3/uL (150-450); RED BLOOD COUNT 3.29 10^6/uL (3.72-5.28); RED CELL DISTRIBUTION WIDTH 14.2 % (11.5-14.0); WHITE BLOOD COUNT 10.2 10^3/uL (4.0-10.5)
[2019-01-17 10:57] LABS: VENOUS BLOOD BASE EXCESS 6.8 mmol/L; VENOUS BLOOD PH 7.28 (7.30-7.42)
--- NOTE | 2019-01-17 11:04 | RADIOLOGY REPORT (SQ) ---
EXAM DESCRIPTION: CHEST SINGLE VIEW COMPLETED DATE/TIME: 01/17/2019 10:47 am REASON FOR STUDY: AMS SOB COMPARISON: 01/12/2019. EXAM PARAMETERS: NUMBER OF VIEWS: One view. TECHNIQUE: Single frontal radiographic view of the chest acquired. RADIATION DOSE: NA LIMITATIONS: None. FINDINGS: LUNGS AND PLEURA: No opacities, masses or pneumothorax. No pleural effusion. MEDIASTINUM AND HILAR STRUCTURES: No masses. Contour normal. HEART AND VASCULAR STRUCTURES: Cardiomegaly. Mild vascular prominence. BONES: No acute findings. Degenerative changes in the spine. HARDWARE: None in the chest. OTHER: No other significant finding. IMPRESSION: CARDIOMEGALY WITH MILD VASCULAR PROMINENCE. TECHNICAL DOCUMENTATION: JOB ID: [id number] [email or web address]- All Rights Reserved Reading location - IP/workstation name: [email or web address]
[2019-01-17 11:13] LABS: ALANINE AMINOTRANSFERASE 32 U/L (9-52); ALKALINE PHOSPHATASE 172 U/L (38-126); ANION GAP 7 (5-19); ASPARTATE AMINO TRANSFERASE 40 U/L (14-36); BILIRUBIN,DIRECT 0.5 mg/dL (0.0-0.4); BILIRUBIN,TOTAL 0.5 mg/dL (0.2-1.3); BLOOD UREA NITROGEN 54 mg/dL (7-20); CALCIUM 10.5 mg/dL (8.4-10.2); CARBON DIOXIDE 32 mmol/L (22-30); CHLORIDE 102 mmol/L (98-107); CREATINE KINASE 48 U/L (30-135); GLUCOSE 117 mg/dL (75-110); POTASSIUM 5.6 mmol/L (3.6-5.0); SODIUM 140.7 mmol/L (137-145); TOTAL PROTEIN 7.3 g/dL (6.3-8.2)
[2019-01-17 11:17] LABS: VENOUS BLOOD PCO2 79.1 mmHg (35-63)
[2019-01-17 11:24] LABS: NT PRO BNP 1110 pg/mL (5-900)
[2019-01-17 11:34] LABS: CREATINE KINASE MB < 0.22 ng/mL (<4.55)
[2019-01-17 11:35] LABS: TROPONIN I 0.043 ng/mL
[2019-01-17 11:39] LABS: ABSOLUTE LYMPHOCYTES# (MANUAL) 2.3 10^3/uL (0.5-4.7); ABSOLUTE MONOCYTES # (MANUAL) 0.1 10^3/uL (0.1-1.4); ABSOLUTE NEUTROPHILS# (MANUAL) 7.5 10^3/uL (1.7-8.2); BAND NEUTROPHILS % (MANUAL) 1 % (3-5); BASOPHILS % (MANUAL) 0 % (0-2); EOSINOPHILS % (MANUAL) 2 % (0-6); LYMPHOCYTES % (MANUAL) 22 % (13-45); MONOCYTES % (MANUAL) 1 % (3-13); NUCLEATED RED BLOOD CELLS 1 /100 WBC (0); SEGMENTED NEUTROPHILS % (MAN) 73 % (42-78); TOTAL CELLS COUNTED 100
[2019-01-17 11:40] LABS: ANISOCYTOSIS SLIGHT; PLATELET COMMENT ADEQUATE
[2019-01-17] MEDS ORDERED: FUROSEMIDE INJ/PF 40 MG/4 ML SDV IV ONE (12:04)
--- NOTE | 2019-01-17 12:07 | ER Document Report ---
ED General - General Chief Complaint: Respiratory Distress Stated Complaint: DIFFICULTY BREATHING Time Seen by Provider: 01/17/19 10:27 TRAVEL OUTSIDE OF THE [place] IN LAST 30 DAYS: No - HPI Patient complains to provider of: Respiratory distress Notes: Patient from local nursing care facility coming in for respiratory distress. According EMS family was at bedside states that the patient started having difficulty breathing lips turning blue states that at some point nursing care facility staff did start CPR however upon EMS arrival patient had a pulse patient was slightly cyanotic with SPO2 in the 60s. Patient did have altered mental status very groggy therefore a nonrebreather was placed on the patient. Patient was transported to the ER for further evaluation. Upon my evaluation patient now according EMS is more alert. Patient is still somewhat confused however will follow some simple commands. GCS is above 13. Patient does have a very significant past medical history and recent hospitalization that was reviewed. A brief review of the patient's past medical records available in [facility] was performed Patient upon my evaluation though still looks to be in Moderate respiratory distress therefore patient will be placed on BiPAP. Of note ENT states that the end-tidal CO2 was greater than 70. Patient otherwise still confused and slightly altered noncontributory to the HPI process - Related Data Allergies/Adverse Reactions: No Known Allergies Allergy (Verified 03/15/18 15:04) Past Medical History - Social History Smoking Status: Unknown if Ever Smoked Family History: CAD, DM, Hypertension, Malignancy, Thyroid Disfunction Patient has suicidal ideation: No Patient has homicidal ideation: No - Past Medical History Cardiac Medical History: Reports: Hx Atrial Fibrillation - Paroxysmal, Hx Congestive Heart Failure, Hx Coronary Artery Disease, Hx Heart Attack, Hx Hypercholesterolemia, Hx Hypertension, Hx Pulmonary Embolism Denies: Hx DVT Pulmonary Medical History: Reports: Hx COPD, Hx Pneumonia, Hx Sleep Apnea Denies: Hx Asthma, Hx Bronchitis Neurological Medical History: Denies: Hx Cerebrovascular Accident, Hx Migraine, Hx Seizures Endocrine Medical History: Reports: Hx Diabetes Mellitus Type 2, Hx Hypothyroidism. Denies: Hx Diabetes Mellitus Type 1, Hx Hyperthyroidism Renal/ Medical History: Reports: Hx End Stage Renal Disease. Denies: Hx Peritoneal Dialysis Malignancy Medical History: Reports: Hx Cervical Cancer GI Medical History: Denies: Hx Cirrhosis, Hx Hepatitis Musculoskeletal Medical History: Reports Hx Arthritis, Reports Hx Gout Skin Medical History: Denies Hx Eczema, Denies Hx Psoriasis Psychiatric Medical History: Reports: Hx Depression Infectious Medical History: Reports: Hx C-Diff - History of severe persistent C. difficile while in [place] and underwent fec. Denies: Hx Hepatitis Past Surgical History: Reports: Hx Abdominal Surgery - umbilical hernia, Hx Appendectomy, Hx Section, Hx Cholecystectomy, Hx Herniorrhaphy, Other - Breast cyst, history of fecal transplant for C. difficile. Denies: Hx Hy sterectomy - Immunizations Hx Diphtheria, Pertussis, Tetanus Vaccination: Yes Hx Pneumococcal Vaccination: 08/06/15 Review of Systems - Review of Systems -: Yes ROS unobtainable due to patient's medical condition - Distress altered mental status Physical Exam - Vital signs Vitals: Temp Pulse Ox 100.5 F H 98 01/17/19 10:25 01/17/19 10:25 Interpretation: Tachycardic, Hypoxic - Sick, Tachypneic - General General appearance: Alert, Other In distress: Moderate - Monitor - HEENT Head: Normocephalic, Atraumatic Eyes: Normal Pupils: PERRL - Respiratory Respiratory status: No respiratory distress Chest status: Nontender Breath sounds: Rhonchi Chest palpation: Normal - Cardiovascular Rhythm: Regular, Tachycardia Heart sounds: Normal auscultation Murmur: No - Abdominal Inspection: Obese Distension: No distension Bowel sounds: Normal Tenderness: Nontender Organomegaly: No organomegaly - Back Back: Normal, Nontender - Extremities General upper extremity: Normal inspection, Nontender, Normal color, Normal ROM, Normal temperature General lower extremity: Nontender, Normal color, Normal ROM, Normal temperature, Normal weight bearing. No: Normal inspection - Redness venous stasis changes bilaterally Patient has dressing after having surgery on the right foot in place there is no sign blushing of the dressings., Austin's sign - Neurological Neuro grossly intact: Yes Cognition: Normal Orientation: AAOx4 [place] Coma Scale Eye Opening: Spontaneous [place] Coma Scale Verbal: Oriented [place] Coma Scale Motor: Obeys Commands [place] Coma Scale Total: 15 Speech: Normal Motor strength normal: LUE, RUE, LLE, RLE Sensory: Normal - Psychological Associated symptoms: Normal affect, Normal mood - Skin Skin Temperature: Warm Skin Moisture: Dry Skin Color: Normal Course - Re-evaluation Re-evalutation: 01/17/19 13:36 Laboratory studies showed hypercapnia. Patient chest x-ray showed increased edema. Did discuss with hospital staff patient improved on BiPAP mental status continued to improve. Will admit the patient to the ICU. Patient is a full code. - Vital Signs Vital signs: Temp Pulse Resp BP Pulse Ox 100.5 F H 12 130/58 H 99 01/17/19 10:25 01/17/19 13:16 01/17/19 13:16 01/17/19 13:16 - Laboratory Result Diagrams: 01/17/19 10:40 01/17/19 10:40 Laboratory results interpreted by me: 01/17/19 01/17/19 01/17/19 10:40 10:40 10:40 RBC 3.29 L Hgb 10.1 L Hct 30.7 L RDW 14.2 H Band Neutrophils % 1 L Monocytes % (Manual) 1 L VBG pH VBG pCO2 VBG HCO3 Potassium 5.6 H Carbon Dioxide 32 H BUN 54 H Creatinine 1.94 H Est GFR ( Amer) 31 L Est GFR (Non-Af Amer) 26 L Glucose 117 H Calcium 10.5 H Direct Bilirubin 0.5 H AST 40 H Alkaline Phosphatase 172 H NT-Pro-B Natriuret Pep 1110 H 01/17/19 10:40 RBC Hgb Hct RDW Band Neutrophils % Monocytes % (Manual) VBG pH 7.28 L VBG pCO2 79.1 H* VBG HCO3 36.0 H Potassium Carbon Dioxide BUN Creatinine Est GFR ( Amer) Est GFR (Non-Af Amer) Glucose Calcium Direct Bilirubin AST Alkaline Phosphatase NT-Pro-B Natriuret Pep Critical Care Note - Critical Care Note Total time excluding time spent on procedures (mins): 35 Comments: Multiple evaluation patient restored distress requiring BiPAP management Discharge - Discharge Clinical Impression: Morbid obesity with BMI of 45.0-49.9, adult, Physical deconditioning, Debility, Diabetic foot infection, Obstructive sleep apnea, Chronic kidney disease, stage 3, Hyperkalemia, Full code status Diabetic foot ulcer Qualifiers: Diabetic foot ulcer location: toe Diabetes mellitus type: type 2 Laterality: right Cellulitis Qualifiers: Site of cellulitis: extremity Site of cellulitis of extremity: lower extremity Laterality: right Qualified Code(s): L03.115 - Cellulitis of right lower limb CAD (coronary artery disease) Qualifiers: Coronary Disease-Associated Artery/Lesion type: unspecified vessel or lesion type [place] vs. transplanted heart: [place] heart Associated angina: without angina Qualified Code(s): I25.10 - Atherosclerotic heart disease of [place] coronary artery without angina pectoris COPD (chronic obstructive pulmonary disease) Qualifiers: Emphysema type: unspecified Diabetes Qualifiers: Diabetes mellitus type: type 1 Diabetes mellitus complication status: without complication Qualified Code(s): E10.9 - Type 1 diabetes mellitus without complications Acute respiratory failure Qualifiers: Respiratory failure complication: hypoxia and hypercapnia Qualified Code(s): J96.01 - Acute respiratory failure with hypoxia Condition: Fair Disposition: ADMITTED INPATIENT Admitting Provider: [facility] Unit Admitted: ICU
[2019-01-17] MEDS ORDERED: ONDANSETRON HCL INJ/PF 4 MG/2 ML SDV IV PRN (12:33)
--- NOTE | 2019-01-17 12:33 | PDOC H&P ---
History of Present Illness Admission Date/PCP: RAO PAGE MD History of Present Illness: LORETO JOSHI is a 68 year old female patient with multiple comorbidities including morbid obesity, chronically infected diabetic ulcer, stage IV CKD, COPD, hypertension and type 2 diabetes mellitus brought from [facility] for acute respiratory failure and altered mental status. Since patient is on full BiPAP and sleeping she is not source of history brief history is obtained or having from the ER attending. Per ER attending patient suddenly become altered and she desaturates with O2 saturation of 60%. The nursing staff briefly performing CPR and EMS activated. EMS put her on BiPAP and brought her to the hospital. After she started on BiPAP patient became awake, alert and able to communicate. Further detailed history and review of systems unobtainable. Of note patient discharged from this hospital yesterday after she was treated for her chronically infected diabetic foot with antibiotics and incision drainage and debridement.. Past Medical History Cardiac Medical History: Reports: Atrial Fibrillation - Paroxysmal, Congestive Heart Failure, Coronary Artery Disease, Myocardial Infarction, Hyperlipidema, Hypertension, Pulmonary Embolism Denies: DVT Pulmonary Medical History: Reports: Chronic Obstructive Pulmonary Disease (COPD), Pneumonia, Sleep Apnea Denies: Asthma, Bronchitis Neurological Medical History: Denies: Migraine, Seizures Endocrine Medical History: Reports: Diabetes Mellitus Type 2, Hypothyroidism Denies: Diabetes Mellitus Type 1, Hyperthyroidism Renal/ Medical History: Reports: End Stage Renal Disease Malignancy Medical History: Reports: Cervical Cancer GI Medical History: Denies: Cirrhosis, Hepatitis Musculoskeltal Medical History: Reports: Arthritis, Gout Skin Medical History: Denies: Eczema, Psoriasis Psychiatric Medical History: Reports: Depression Hematology: Reports: Anemia Denies: Bleeding Tendencies Infectious Medical History: Reports: Clostridium Difficile - History of severe persistent C. difficile while in [place] and underwent fec Past Surgical History Past Surgical History: Reports: Appendectomy, Section, Cholecystectomy, Herniorrhaphy, Other - Breast cyst, history of fecal transplant for C. difficile Denies: Hysterectomy Social History Smoking Status: Unknown if Ever Smoked Frequency of Alcohol Use: None Hx Recreational Drug Use: No Drugs: None Hx Prescription Drug Abuse: No Family History Family History: CAD, DM, Hypertension, Malignancy, Thyroid Disfunction Parental Family History Reviewed: Yes Children Family History Reviewed: Yes Sibling(s) Family History Reviewed.: Yes Medication/Allergy Home Medications: Atorvastatin Calcium [Lipitor 20 mg Tablet] 20 mg PO QHS 10/17/18 Carvedilol [Coreg 12.5 mg Tablet] 12.5 mg PO Q12 10/17/18 Clobetasol Propionate [Temovate Solution] 1 applic TOP QHS MDD SCALP & EAR LOBES 10/17/18 Docusate Sodium [Colace 100 mg Capsule] 100 mg PO QAM 10/17/18 Fluticasone Propionate [Flonase Nasal [place] 50 Mcg/[place] 16 gm] 2 spray NASL QAM 10/17/18 Furosemide [Lasix 80 mg Tablet] 80 mg PO BID 10/17/18 Levothyroxine Sodium 88 mcg PO Q6AM 10/17/18 Lifitegrast [Xiidra] 1 drop OU BID 10/17/18 Ondansetron HCl [Zofran 4 mg Tablet] 4 mg PO Q8HP PRN 10/17/18 Phenol [Chloraseptic] 2 sprays PO BIDP PRN 10/17/18 Pimecrolimus [Elidel] 1 applic TOP BID MDD FACE & EARS FOR FLAKY SKIN 10/17/18 Potassium Chloride [K-Tab ER] 20 meq PO BID 10/17/18 Pregabalin [Lyrica 100 mg Capsule] 100 mg PO Q8 10/17/18 Ranitidine HCl [Zantac 150 mg Tablet] 75 mg PO BID 10/17/18 Sodium Chloride [Saline Mist] 1 spray NASL ACHS 10/17/18 Trazodone HCl [Desyrel 50 mg Tablet] 25 mg PO QHS 10/17/18 Amlodipine Besylate [Norvasc 5 mg Tablet] 5 mg PO DAILY #30 tablet 10/25/18 Aspirin [Ecotrin 81 mg EC Tablet] 81 mg PO DAILY #30 tabec 10/25/18 Budesonide [Pulmicort Neb 0.5 mg/2 ml Ampul] 0.5 mg NEB RTQ12 #60 ampul.neb Cetirizine HCl [Zyrtec 5 mg Tablet] 5 mg PO QAM #30 tablet 10/25/18 Cholecalciferol (Vitamin D3) [Vitamin D3 1000 Unit Tablet] 5,000 unit PO DAILY tablet 10/25/18 Famotidine [Pepcid 20 mg Tablet] 20 mg PO QHS #30 tablet 10/25/18 Ferrous Sulfate [Feosol 325 mg Tablet] 325 mg PO DAILY #0 tablet 10/25/18 Insulin Glargine,Hum.rec.anlog [Lantus Insulin 100 Unit/1 ml 10 ml] 60 unit SUBCUT BID #1 unit 10/25/18 Insulin Regular, Human [Humulin R (Reg) Insulin 100 unit/mL] 0 - 12 unit SUBCUT ACHSP PRN #1 vial 10/25/18 Lisinopril [Prinivil 10 mg Tablet] 10 mg PO DAILY #30 tablet 10/25/18 Albuterol Sulfate [Proventil 0.5% Neb 2.5 mg/0.5 ml Vial.neb] 2.5 mg NEB RTQ4HP PRN 10/28/18 Ketotifen Fumarate [Zaditor] 1 drop OU BID 01/12/19 Sennosides [Senna] 8.6 mg PO DAILY 01/12/19 Tamsulosin HCl [Flomax 0.4 mg Cap.sr] 0.4 mg PO QHS 01/12/19 Acetaminophen [Tylenol 325 mg Tablet] 325 mg PO Q4HP PRN tablet 01/16/19 Epoetin [place] [Procrit] 20,000 unit SUBCUT WE #30 ml 01/16/19 Nystatin [Mycostatin Topical Powder 15 gm] 1 applic TP DAILY bottle 01/16/19 Oxycodone HCl/Acetaminophen [Percocet 5-325 mg Tablet] 1 tab PO Q6HP PRN #12 tablet 01/16/19 Sennosides/Docusate 8.6-50 mg [Senna Plus Tablet] 1 each PO DAILY tablet 01/16/19 Allergies/Adverse Reactions: No Known Allergies Allergy (Verified 03/15/18 15:04) Review of Systems ROS unobtainable: Due to mental status Physical Exam Vital Signs: Temp Pulse Resp BP Pulse Ox 100.5 F H 11 L 120/72 100 01/17/19 10:25 01/17/19 12:01 01/17/19 12:01 01/17/19 12:01 General appearance: PRESENT: mild distress, morbidly obese Head exam: PRESENT: atraumatic, normocephalic Eye exam: PRESENT: conjunctiva pink Respiratory exam: PRESENT: decreased breath sounds, wheezes Cardiovascular exam: PRESENT: irregular rhythm GI/Abdominal exam: PRESENT: normal bowel sounds, soft. ABSENT: distended, guarding, mass, organolmegaly, rebound, tenderness Results Laboratory Results: 01/17/19 10:40 01/17/19 10:40 01/17/19 01/17/19 01/17/19 10:40 10:40 10:40 WBC 10.2 RBC 3.29 L Hgb 10.1 L Hct 30.7 L MCV 93 MCH 30.7 MCHC 33.0 RDW 14.2 H Plt Count 208 Seg Neutrophils % Not Reportable Lymphocytes % Not Reportable Monocytes % Not Reportable Eosinophils % Not Reportable Basophils % Not Reportable Absolute Neutrophils Not Reportable Absolute Lymphocytes Not Reportable Absolute Monocytes Not Reportable Absolute Eosinophils Not Reportable Absolute Basophils Not Reportable Carbonic Acid HCO3/H2CO3 Ratio ABG pH ABG pCO2 ABG pO2 ABG HCO3 ABG O2 Saturation ABG Base Excess VBG pH 7.28 L VBG pCO2 79.1 H* VBG HCO3 36.0 H VBG Base Excess 6.8 FiO2 Sodium 140.7 Potassium 5.6 H Chloride 102 Carbon Dioxide 32 H Anion Gap 7 BUN 54 H Creatinine 1.94 H Est GFR ( Amer) 31 L Est GFR (Non-Af Amer) 26 L Glucose 117 H Lactic Acid Calcium 10.5 H Total Bilirubin 0.5 AST 40 H ALT 32 Alkaline Phosphatase 172 H Total Protein 7.3 Albumin 4.0 Lipase 76.0 01/17/19 01/17/19 10:40 11:06 WBC RBC Hgb Hct MCV MCH MCHC RDW Plt Count Seg Neutrophils % Lymphocytes % Monocytes % Eosinophils % Basophils % Absolute Neutrophils Absolute Lymphocytes Absolute Monocytes Absolute Eosinophils Absolute Basophils Carbonic Acid Cancelled HCO3/H2CO3 Ratio Cancelled ABG pH Cancelled ABG pCO2 Cancelled ABG pO2 Cancelled ABG HCO3 Cancelled ABG O2 Saturation Cancelled ABG Base Excess Cancelled VBG pH VBG pCO2 VBG HCO3 VBG Base Excess FiO2 Cancelled Sodium Potassium Chloride Carbon Dioxide Anion Gap BUN Creatinine Est GFR ( Amer) Est GFR (Non-Af Amer) Glucose Lactic Acid 1.0 Calcium Total Bilirubin AST ALT Alkaline Phosphatase Total Protein Albumin Lipase 01/17/19 01/17/19 10:40 10:40 Creatine Kinase 48 CK-MB (CK-2) < 0.22 Troponin I 0.043 NT-Pro-B Natriuret Pep 1110 H Impressions: Chest X-Ray 01/17/19 00:00 IMPRESSION: CARDIOMEGALY WITH MILD VASCULAR PROMINENCE. Assessment & Plan - Diagnosis (1) Acute on chronic respiratory failure with hypoxemia Is this a current diagnosis for this admission?: Yes Plan: I will admit this patient to ICU. Continue BiPAP, supplemental oxygen and bronchodilators. (2) Acute encephalopathy Is this a current diagnosis for this admission?: Yes Plan: Due to #1. (3) Systolic CHF, acute on chronic Is this a current diagnosis for this admission?: Yes Plan: I will start her Lasix and continue her cardioprotective medications. (4) COPD (chronic obstructive pulmonary disease) Qualifiers: Emphysema type: unspecified Is this a current diagnosis for this admission?: Yes Plan: Continue bronchodilator (5) Type 2 diabetes mellitus Is this a current diagnosis for this admission?: Yes Plan: Continue sliding scale. I will reevaluate her home medications. (6) Hypothyroidism (acquired) Is this a current diagnosis for this admission?: Yes Plan: Continue Synthroid (7) Obstructive sleep apnea Is this a current diagnosis for this admission?: Yes Plan: Continue BiPAP (8) Chronic atrial fibrillation Is this a current diagnosis for this admission?: Yes Plan: Rate controlled and continue home medication. (9) Hypertension Qualifiers: Hypertension type: essential hypertension Qualified Code(s): I10 - Essential (primary) hypertension Is this a current diagnosis for this admission?: Yes Plan: Continue home medications (10) Chronic renal disease, stage IV Is this a current diagnosis for this admission?: Yes Plan: Avoid nephrotoxic agents (11) Hyperlipidemia Qualifiers: Hyperlipidemia type: unspecified Qualified Code(s): E78.5 - Hyperlipidemia, unspecified Is this a current diagnosis for this admission?: Yes Plan: Continue home Lipitor
[2019-01-17 12:37] LABS: INTERNATIONAL RATION (INR) 1.01; PROTHROMBIN TIME 13.8 SEC (11.4-15.4)
[2019-01-17 13:00] LABS: ARTERIAL BLOOD BASE EXCESS 6.1 mmol/L; ARTERIAL BLOOD FIO2 40%; ARTERIAL BLOOD H2CO3 1.72 mmol/L (1.05-1.35); ARTERIAL BLOOD HCO3 32.6 mmol/L (20-24); ARTERIAL BLOOD O2 SATURATION 98.5 % (94-98); ARTERIAL BLOOD PCO2 57.1 mmHg (35-45); ARTERIAL BLOOD PH 7.37 (7.35-7.45); ARTERIAL BLOOD PO2 133.4 mmHg (80-100); ARTERIAL BLOOD TOTAL CO2 34.3 mmol/L (21-25)
--- NOTE | 2019-01-17 13:52 | EKG REPORT ---
SEVERITY:- NORMAL ECG - SINUS RHYTHM : Confirmed by: Serg Javier MD 17-Jan-2019 13:52:18
[2019-01-17] MEDS: LEVOFLOXACIN 250 MG/D5W RTU 250 MG/50 ML RTUPB IV SCH (15:46)
[2019-01-17] MEDS: LEVALBUTEROL HCL NEB 0.63 MG/3 ML AMPUL NEB SCH ×2 (16:56→19:15)
[2019-01-17 17:27] LABS: ARTERIAL BLOOD BASE EXCESS 4.5 mmol/L; ARTERIAL BLOOD H2CO3 1.75 mmol/L (1.05-1.35); ARTERIAL BLOOD HCO3 31.2 mmol/L (20-24); ARTERIAL BLOOD O2 SATURATION 99.3 % (94-98); ARTERIAL BLOOD PCO2 58.1 mmHg (35-45); ARTERIAL BLOOD PH 7.35 (7.35-7.45); ARTERIAL BLOOD PO2 208.4 mmHg (80-100)
[2019-01-17] MEDS: METHYLPREDNISOLONE INJ 40 MG/1 ML SDV IV SCH ×2 (17:27→22:26)
[2019-01-17] MEDS: HEPARIN SOD (PORCINE) 5,000 UNIT/ML 1 ML SYRINGE SUBCUT SCH ×2 (17:27→22:26)
[2019-01-17 17:28] LABS: ARTERIAL BLOOD FIO2 40%
--- NOTE | 2019-01-17 18:25 | PDOC PROGRESS REPORT ---
Subjective Progress Note for:: 01/17/19 Subjective:: Patient was just discharged last night to the halfway after she was treated for right foot diabetic ulcer. She also had an episode of acute on chronic kidney disease likely secondary to urinary retention due to her neurogenic bladder which was relieved by inserting a Moreira catheter. So apparently the patient was found to be unresponsive in the halfway today and a brief CPR was done while waiting for EMS due to oxygen saturation of 60%. The EMS place t he patient on BiPAP and started to be awake and able to communicate. Currently she is here now in the ICU still on BiPAP. She is somewhat lethargic and is not really responding to well on questioning. I asked her if she was using her CPAP machine for sleep apnea in the halfway last night and she said yes but not quite sure if this is a reliable history. She could not give any further hist ory at this point. Her kidney function today is really within her baseline kidney function. She remains to be with indwelling Moreira catheter. Reason For Visit: ACUTE RESPIRATORY FAILURE Physical Exam Vital Signs: Temp Pulse Resp BP Pulse Ox 99.0 F 79 16 110/41 L 100 01/17/19 16:26 01/17/19 16:26 01/17/19 18:05 01/17/19 18:05 01/17/19 18:05 Intake & Output 01/16/19 01/17/19 01/18/19 06:59 06:59 06:59 Weight 134.9 kg Exam: General appearance: PRESENT: Patient is lethargic and currently on BiPAP Head exam: PRESENT: atraumatic, normocephalic Eye exam: PRESENT: conjunctiva pale, PERRLA. ABSENT: scleral icterus Neck exam: ABSENT: JVD Respiratory exam: PRESENT: Diminished breath sounds. ABSENT: crackles, rales, rhonchi, unlabored, wheezes Cardiovascular exam: PRESENT: Regular rate rhythm -+S1, +S2. ABSENT: diastolic murmur, systolic murmur GI/Abdominal exam: PRESENT: normal bowel sounds, soft. ABSENT: guarding, mass, tenderness Extremities exam: Trace bilateral lower extremity pitting edema Neurological exam: PRESENT: Lethargic but answers very few questions but speech is difficult to understand well on BiPAP. Skin exam: PRESENT: dry, warm, right foot is still wrapped in gauze in her right lower extremity cellulitis seems to be drying up with mild erythema and scabs. Results Laboratory Results: 01/17/19 10:40 01/17/19 10:40 01/17/19 01/17/19 01/17/19 10:40 10:40 10:40 WBC 10.2 RBC 3.29 L Hgb 10.1 L Hct 30.7 L MCV 93 MCH 30.7 MCHC 33.0 RDW 14.2 H Plt Count 208 Seg Neutrophils % Not Reportable Lymphocytes % Not Reportable Monocytes % Not Reportable Eosinophils % Not Reportable Basophils % Not Reportable Absolute Neutrophils Not Reportable Absolute Lymphocytes Not Reportable Absolute Monocytes Not Reportable Absolute Eosinophils Not Reportable Absolute Basophils Not Reportable Carbonic Acid HCO3/H2CO3 Ratio ABG pH ABG pCO2 ABG pO2 ABG HCO3 ABG O2 Saturation ABG Base Excess VBG pH 7.28 L VBG pCO2 79.1 H* VBG HCO3 36.0 H VBG Base Excess 6.8 FiO2 Sodium 140.7 Potassium 5.6 H Chloride 102 Carbon Dioxide 32 H Anion Gap 7 BUN 54 H Creatinine 1.94 H Est GFR ( Amer) 31 L Est GFR (Non-Af Amer) 26 L Glucose 117 H Lactic Acid Calcium 10.5 H Total Bilirubin 0.5 AST 40 H ALT 32 Alkaline Phosphatase 172 H Total Protein 7.3 Albumin 4.0 Lipase 76.0 01/17/19 01/17/19 01/17/19 10:40 11:06 12:40 WBC RBC Hgb Hct MCV MCH MCHC RDW Plt Count Seg Neutrophils % Lymphocytes % Monocytes % Eosinophils % Basophils % Absolute Neutrophils Absolute Lymphocytes Absolute Monocytes Absolute Eosinophils Absolute Basophils Carbonic Acid Cancelled 1.72 H HCO3/H2CO3 Ratio Cancelled 18:1 ABG pH Cancelled 7.37 ABG pCO2 Cancelled 57.1 H ABG pO2 Cancelled 133.4 H ABG HCO3 Cancelled 32.6 H ABG O2 Saturation Cancelled 98.5 H ABG Base Excess Cancelled 6.1 VBG pH VBG pCO2 VBG HCO3 VBG Base Excess FiO2 Cancelled 40% Sodium Potassium Chloride Carbon Dioxide Anion Gap BUN Creatinine Est GFR ( Amer) Est GFR (Non-Af Amer) Glucose Lactic Acid 1.0 Calcium Total Bilirubin AST ALT Alkaline Phosphatase Total Protein Albumin Lipase 01/17/19 16:59 WBC RBC Hgb Hct MCV MCH MCHC RDW Plt Count Seg Neutrophils % Lymphocytes % Monocytes % Eosinophils % Basophils % Absolute Neutrophils Absolute Lymphocytes Absolute Monocytes Absolute Eosinophils Absolute Basophils Carbonic Acid 1.75 H HCO3/H2CO3 Ratio 17:1 ABG pH 7.35 ABG pCO2 58.1 H ABG pO2 208.4 H ABG HCO3 31.2 H ABG O2 Saturation 99.3 H ABG Base Excess 4.5 VBG pH VBG pCO2 VBG HCO3 VBG Base Excess FiO2 40% Sodium Potassium Chloride Carbon Dioxide Anion Gap BUN Creatinine Est GFR ( Amer) Est GFR (Non-Af Amer) Glucose Lactic Acid Calcium Total Bilirubin AST ALT Alkaline Phosphatase Total Protein Albumin Lipase 01/17/19 01/17/19 10:40 10:40 Creatine Kinase 48 CK-MB (CK-2) < 0.22 Troponin I 0.043 NT-Pro-B Natriuret Pep 1110 H Impressions: Chest X-Ray 01/17/19 00:00 IMPRESSION: CARDIOMEGALY WITH MILD VASCULAR PROMINENCE. Assessment & Plan - Diagnosis (1) Acute hypoxemic respiratory failure Is this a current diagnosis for this admission?: Yes Plan: Etiology is not certain at this time. I am wondering if the patient just went hypoxic if she was not using her CPAP for her sleep apnea or COPD exacerbation. Patient currently still on BiPAP. (2) Acute encephalopathy Is this a current diagnosis for this admission?: Yes Plan: Due to hypoxemia. (3) COPD (chronic obstructive pulmonary disease) Qualifiers: COPD type: unspecified COPD Qualified Code(s): J44.9 - Chronic obstructive pulmonary disease, unspecified Is this a current diagnosis for this admission?: Yes (4) Obstructive sleep apnea Is this a current diagnosis for this admission?: Yes (5) Chronic renal disease, stage IV Is this a current diagnosis for this admission?: Yes Plan: Currently at baseline kidney function. (6) Diabetic nephropathy Qualifiers: Diabetes mellitus type: type 2 Qualified Code(s): E11.21 - Type 2 diabetes mellitus with diabetic nephropathy Is this a current diagnosis for this admission?: Yes (7) Hypertensive nephrosclerosis Is this a current diagnosis for this admission?: Yes (8) Anemia in chronic kidney disease (CKD) Qualifiers: Chronic kidney disease stage: stage 4 (severe) Qualified Code(s): N18.4 - Chronic kidney disease, stage 4 (severe); D63.1 - Anemia in chronic kidney disease; D63.1 - Anemia in chronic kidney disease Plan: She was given Procrit on 01/16 so next shot will be in a week. (9) Neurogenic bladder Is this a current diagnosis for this admission?: Yes Plan: Continue indwelling Moreira catheter. (10) Diabetic foot infection Is this a current diagnosis for this admission?: Yes (11) Secondary hyperparathyroidism (of renal origin) Is this a current diagnosis for this admission?: Yes Plan: We will start her on medication when she is able to treat something orally. (12) Type 2 diabetes mellitus Is this a current diagnosis for this admission?: Yes (13) Hypertension Qualifiers: Hypertension type: essential hypertension Qualified Code(s): I10 - Essential (primary) hypertension Is this a current diagnosis for this admission?: Yes - Time Time with patient: Greater than 35 minutes
[2019-01-17] MEDS: FUROSEMIDE INJ/PF 40 MG/4 ML SDV IV SCH (22:26)
[2019-01-17] MEDS: FAMOTIDINE 20 MG TABLET PO SCH (22:26)
[2019-01-18] MEDS: LEVALBUTEROL HCL NEB 0.63 MG/3 ML AMPUL NEB SCH ×6 (00:29→20:57)
[2019-01-18 04:16] LABS: HEMATOCRIT 30.3 % (36.0-47.0); MEAN CORPUSCULAR HEMOGLOBIN 30.8 pg (27.0-33.4); MEAN CORPUSCULAR HGB CONC 33.1 g/dL (32.0-36.0); MEAN CORPUSCULAR VOLUME 93 fl (80-97); PLATELET COUNT 190 10^3/uL (150-450); RED BLOOD COUNT 3.26 10^6/uL (3.72-5.28); RED CELL DISTRIBUTION WIDTH 13.9 % (11.5-14.0); WHITE BLOOD COUNT 8.5 10^3/uL (4.0-10.5)
[2019-01-18 04:33] LABS: ABSOLUTE LYMPHOCYTES# (MANUAL) 1.4 10^3/uL (0.5-4.7); ABSOLUTE MONOCYTES # (MANUAL) 0.2 10^3/uL (0.1-1.4); BAND NEUTROPHILS % (MANUAL) 3 % (3-5); BASOPHILS % (MANUAL) 0 % (0-2); EOSINOPHILS % (MANUAL) 0 % (0-6); LYMPHOCYTES % (MANUAL) 15 % (13-45); MONOCYTES % (MANUAL) 2 % (3-13); SEGMENTED NEUTROPHILS % (MAN) 79 % (42-78); TOTAL CELLS COUNTED 100
[2019-01-18 04:34] LABS: PLATELET COMMENT ADEQUATE; POLYCHROMASIA 1+; TOXIC GRANULATION SLIGHT
[2019-01-18 04:43] LABS: ANION GAP 8 (5-19); BLOOD UREA NITROGEN 57 mg/dL (7-20); CALCIUM 10.6 mg/dL (8.4-10.2); CARBON DIOXIDE 32 mmol/L (22-30); CHLORIDE 102 mmol/L (98-107); GLUCOSE 206 mg/dL (75-110); POTASSIUM 5.4 mmol/L (3.6-5.0); SODIUM 141.6 mmol/L (137-145)
[2019-01-18 05:10] LABS: ARTERIAL BLOOD H2CO3 2.11 mmol/L (1.05-1.35); ARTERIAL BLOOD HCO3 35.6 mmol/L (20-24); ARTERIAL BLOOD O2 SATURATION 97.7 % (94-98); ARTERIAL BLOOD PH 7.32 (7.35-7.45); ARTERIAL BLOOD PO2 114.9 mmHg (80-100); ARTERIAL BLOOD TOTAL CO2 37.8 mmol/L (21-25)
[2019-01-18] MEDS: METHYLPREDNISOLONE INJ 40 MG/1 ML SDV IV SCH ×3 (05:21→21:38)
[2019-01-18] MEDS: HEPARIN SOD (PORCINE) 5,000 UNIT/ML 1 ML SYRINGE SUBCUT SCH ×3 (05:21→21:38)
[2019-01-18 05:25] LABS: ARTERIAL BLOOD FIO2 30%
[2019-01-18 05:26] LABS: ARTERIAL BLOOD PCO2 70.2 mmHg (35-45)
[2019-01-18] MEDS: ACETAMINOPHEN 325 MG TABLET PO PRN ×2 (05:50→18:40)
--- NOTE | 2019-01-18 06:44 | RADIOLOGY REPORT (SQ) ---
CLINICAL HISTORY: R/O Pneumonia COMPARISON: 01/17/2019. TECHNIQUE: XR CHEST 1 VIEW 01/18/2019 6:00 AM CDT FINDINGS: The heart is enlarged. Lungs are clear without consolidation, atelectasis, mass or edema. There is no pleural effusion. There is no pneumothorax. There are no acute osseous findings. IMPRESSION: No pneumonia or edema.
[2019-01-18] MEDS: FAMOTIDINE 20 MG TABLET PO SCH ×2 (09:29→21:37)
[2019-01-18] MEDS: LEVOFLOXACIN 250 MG/D5W RTU 250 MG/50 ML RTUPB IV SCH (09:29)
[2019-01-18] MEDS: TIOTROPIUM BROMIDE DPI 5 CAP/KIT (18 MCG/CAP) IH SCH (09:29)
[2019-01-18] MEDS: FUROSEMIDE INJ/PF 40 MG/4 ML SDV IV SCH (09:29)
[2019-01-18 17:25] LABS: APPEARANCE,URINE CLOUDY; BILIRUBIN,URINE NEGATIVE (NEGATIVE); COLOR,URINE YELLOW; GLUCOSE, URINE >=500 mg/dL (NEGATIVE); KETONES,URINE TRACE mg/dL (NEGATIVE); LEUKOCYTE ESTERASE,URINE SMALL (NEGATIVE); NITRITE,URINE NEGATIVE (NEGATIVE); PROTEIN,URINE NEGATIVE (NEGATIVE); UROBILINOGEN,URINE NEGATIVE mg/dL (<2.0)
[2019-01-18 18:09] LABS: ARTERIAL BLOOD BASE EXCESS 6.2 mmol/L; ARTERIAL BLOOD FIO2 24%; ARTERIAL BLOOD H2CO3 1.56 mmol/L (1.05-1.35); ARTERIAL BLOOD HCO3 32.3 mmol/L (20-24); ARTERIAL BLOOD PCO2 51.8 mmHg (35-45); ARTERIAL BLOOD PH 7.41 (7.35-7.45); ARTERIAL BLOOD PO2 75.1 mmHg (80-100); ARTERIAL BLOOD TOTAL CO2 33.9 mmol/L (21-25)
[2019-01-18] MEDS: FUROSEMIDE 80 MG TABLET PO SCH (18:40)
--- NOTE | 2019-01-18 21:21 | PDOC PROGRESS REPORT ---
Subjective Progress Note for:: 01/18/19 Subjective:: Patient is doing much better today compared to admission. Patient is awake and alert and communicating but could not remember what happened regarding the circumstances of her readmission. She is being tried on AVAPS. She continues to make a good urine output. Reason For Visit: ACUTE RESPIRATORY FAILURE Physical Exam Vital Signs: Temp Pulse Resp BP Pulse Ox 98.2 F 91 15 150/80 H 94 01/18/19 19:33 01/18/19 18:00 01/18/19 18:05 01/18/19 18:05 01/18/19 18:05 Intake & Output 01/17/19 01/18/19 01/19/19 06:59 06:59 06:59 Intake Total 50 50 Output Total 705 1160 Balance -655 -1110 Weight 136.7 kg 136.7 kg Exam: General appearance: PRESENT: no acute distress, cooperative, well-developed, well-nourished Head exam: PRESENT: atraumatic, normocephalic Eye exam: PRESENT: conjunctiva pale, PERRLA. ABSENT: scleral icterus Neck exam: ABSENT: JVD Respiratory exam: PRESENT: Normal breath sounds. ABSENT: crackles, rales, rhonchi, unlabored, wheezes Cardiovascular exam: PRESENT: Regular rate rhythm -+S1, +S2. ABSENT: diastolic murmur, systolic murmur GI/Abdominal exam: PRESENT: normal bowel sounds, soft. ABSENT: guarding, mass, tenderness Extremities exam: Trace bilateral lower extremity edema Neurological exam: PRESENT: alert, awake, oriented to person, place and time. Skin exam: PRESENT: dry, warm, Results Laboratory Results: 01/18/19 04:00 01/18/19 04:00 01/18/19 01/18/19 01/18/19 04:00 04:00 04:00 WBC 8.5 RBC 3.26 L Hgb 10.0 L Hct 30.3 L MCV 93 MCH 30.8 MCHC 33.1 RDW 13.9 Plt Count 190 Seg Neutrophils % Not Reportable Lymphocytes % Not Reportable Monocytes % Not Reportable Eosinophils % Not Reportable Basophils % Not Reportable Absolute Neutrophils Not Reportable Absolute Lymphocytes Not Reportable Absolute Monocytes Not Reportable Absolute Eosinophils Not Reportable Absolute Basophils Not Reportable Carbonic Acid HCO3/H2CO3 Ratio ABG pH ABG pCO2 ABG pO2 ABG HCO3 ABG O2 Saturation ABG Base Excess FiO2 Sodium 141.6 Potassium 5.4 H Chloride 102 Carbon Dioxide 32 H Anion Gap 8 BUN 57 H Creatinine 2.14 H Est GFR ( Amer) 28 L Est GFR (Non-Af Amer) 23 L Glucose 206 H Calcium 10.6 H Magnesium 2.7 H TSH 1.30 Urine Color Urine Appearance Urine pH Ur Specific [place] Urine Protein Urine Glucose (UA) Urine Ketones Urine Blood Urine Nitrite Ur Leukocyte Esterase Urine WBC (Auto) Urine RBC (Auto) 01/18/19 01/18/19 01/18/19 04:37 16:55 17:00 WBC RBC Hgb Hct MCV MCH MCHC RDW Plt Count Seg Neutrophils % Lymphocytes % Monocytes % Eosinophils % Basophils % Absolute Neutrophils Absolute Lymphocytes Absolute Monocytes Absolute Eosinophils Absolute Basophils Carbonic Acid 2.11 H 1.56 H HCO3/H2CO3 Ratio 16:1 20:1 ABG pH 7.32 L 7.41 ABG pCO2 70.2 H* 51.8 H ABG pO2 114.9 H 75.1 L ABG HCO3 35.6 H 32.3 H ABG O2 Saturation 97.7 95.0 ABG Base Excess 7.0 6.2 FiO2 30% 24% Sodium Potassium Chloride Carbon Dioxide Anion Gap BUN Creatinine Est GFR ( Amer) Est GFR (Non-Af Amer) Glucose Calcium Magnesium TSH Urine Color YELLOW Urine Appearance CLOUDY Urine pH 5.0 Ur Specific [place] 1.010 Urine Protein NEGATIVE Urine Glucose (UA) >=500 H Urine Ketones TRACE H Urine Blood NEGATIVE Urine Nitrite NEGATIVE Ur Leukocyte Esterase SMALL H Urine WBC (Auto) 4 Urine RBC (Auto) 2 01/17/19 01/17/19 10:40 10:40 Creatine Kinase 48 CK-MB (CK-2) < 0.22 Troponin I 0.043 NT-Pro-B Natriuret Pep 1110 H Impressions: Chest X-Ray 01/18/19 06:00 IMPRESSION: No pneumonia or edema. Assessment & Plan - Diagnosis (1) Acute hypoxemic respiratory failure Is this a current diagnosis for this admission?: Yes Plan: Improving. (2) Acute encephalopathy Is this a current diagnosis for this admission?: Yes Plan: due to hypoxia. Currently at baseline mental status. (3) COPD (chronic obstructive pulmonary disease) Qualifiers: COPD type: unspecified COPD Qualified Code(s): J44.9 - Chronic obstructive pulmonary disease, unspecified Is this a current diagnosis for this admission?: Yes (4) Obstructive sleep apnea Is this a current diagnosis for this admission?: Yes (5) Chronic renal disease, stage IV Is this a current diagnosis for this admission?: Yes Plan: Currently at baseline kidney function. (6) Diabetic nephropathy Qualifiers: Diabetes mellitus type: type 2 Qualified Code(s): E11.21 - Type 2 diabetes mellitus with diabetic nephropathy Is this a current diagnosis for this admission?: Yes (7) Hypertensive nephrosclerosis Is this a current diagnosis for this admission?: Yes (8) Anemia in chronic kidney disease (CKD) Qualifiers: Chronic kidney disease stage: stage 4 (severe) Qualified Code(s): N18.4 - Chronic kidney disease, stage 4 (severe); D63.1 - Anemia in chronic kidney disease; D63.1 - Anemia in chronic kidney disease Is this a current diagnosis for this admission?: Yes Plan: She was given Procrit on 01/16 so next shot will be in a week. (9) Neurogenic bladder Is this a current diagnosis for this admission?: Yes Plan: Continue indwelling Moreira catheter. (10) Hyperkalemia Is this a current diagnosis for this admission?: Yes Plan: Mild and improved. (11) Diabetic foot infection Is this a current diagnosis for this admission?: Yes (12) Secondary hyperparathyroidism (of renal origin) Is this a current diagnosis for this admission?: Yes Plan: We will start her on medication when she is able to treat something orally. (13) Type 2 diabetes mellitus Is this a current diagnosis for this admission?: Yes (14) Hypertension Qualifiers: Hypertension type: essential hypertension Qualified Code(s): I10 - Essential (primary) hypertension Is this a current diagnosis for this admission?: Yes - Time Time with patient: 15-25 minutes
[2019-01-18] MEDS: TRAMADOL HCL 50 MG TABLET PO PRN (21:37)
[2019-01-18] MEDS ORDERED: DEXTROSE 40% GEL 15 GM TUBE PO PRN (22:30)
[2019-01-18] MEDS ORDERED: DEXTROSE 40% GEL 15 GM TUBE X 2 PO PRN (22:30)
[2019-01-18] MEDS ORDERED: DEXTROSE 50%-WATER SYRINGE 25 GM/50 ML DOSE IV PRN (22:30)
[2019-01-18] MEDS ORDERED: GLUCAGON,HUMAN RECOMB 1 MG INJ IM PRN (22:30)
[2019-01-18] MEDS ORDERED: DEXTROSE 50%-WATER SYRINGE 12.5 GM/25 ML DOSE IV PRN (22:30)
[2019-01-18] MEDS: INSULIN LISPRO 100 UNIT/ML 3 ML VIAL SUBCUT SCH (23:32)
[2019-01-19] MEDS: LEVALBUTEROL HCL NEB 0.63 MG/3 ML AMPUL NEB SCH ×7 (00:10→23:47)
[2019-01-19 04:33] LABS: HEMATOCRIT 30.1 % (36.0-47.0); MEAN CORPUSCULAR HGB CONC 33.3 g/dL (32.0-36.0); MEAN CORPUSCULAR VOLUME 93 fl (80-97); PLATELET COUNT 228 10^3/uL (150-450); RED BLOOD COUNT 3.23 10^6/uL (3.72-5.28); RED CELL DISTRIBUTION WIDTH 13.9 % (11.5-14.0); WHITE BLOOD COUNT 10.8 10^3/uL (4.0-10.5)
[2019-01-19 04:50] LABS: ANION GAP 11 (5-19); BLOOD UREA NITROGEN 64 mg/dL (7-20); CALCIUM 10.7 mg/dL (8.4-10.2); CARBON DIOXIDE 30 mmol/L (22-30); CHLORIDE 97 mmol/L (98-107); POTASSIUM 5.6 mmol/L (3.6-5.0); SODIUM 137.6 mmol/L (137-145)
[2019-01-19 05:03] LABS: ABSOLUTE LYMPHOCYTES# (MANUAL) 1.2 10^3/uL (0.5-4.7); ABSOLUTE MONOCYTES # (MANUAL) 0.5 10^3/uL (0.1-1.4); ABSOLUTE NEUTROPHILS# (MANUAL) 9.1 10^3/uL (1.7-8.2); BASOPHILS % (MANUAL) 0 % (0-2); EOSINOPHILS % (MANUAL) 0 % (0-6); LYMPHOCYTES % (MANUAL) 11 % (13-45); MONOCYTES % (MANUAL) 5 % (3-13); PLATELET COMMENT ADEQUATE; RBC MORPHOLOGY COMMENT NORMO-CYTIC/CHROMIC; SEGMENTED NEUTROPHILS % (MAN) 84 % (42-78); TOTAL CELLS COUNTED 100
[2019-01-19 05:05] LABS: GLUCOSE 441 mg/dL (75-110)
[2019-01-19 05:23] LABS: ARTERIAL BLOOD BASE EXCESS 6.3 mmol/L; ARTERIAL BLOOD FIO2 30%; ARTERIAL BLOOD H2CO3 1.59 mmol/L (1.05-1.35); ARTERIAL BLOOD HCO3 32.2 mmol/L (20-24); ARTERIAL BLOOD O2 SATURATION 97.5 % (94-98); ARTERIAL BLOOD PCO2 52.9 mmHg (35-45); ARTERIAL BLOOD TOTAL CO2 33.8 mmol/L (21-25)
[2019-01-19] MEDS: LEVOTHYROXINE SODIUM 0.088 MG TABLET PO SCH (05:50)
[2019-01-19] MEDS: HEPARIN SOD (PORCINE) 5,000 UNIT/ML 1 ML SYRINGE SUBCUT SCH ×3 (05:50→22:27)
[2019-01-19] MEDS: METHYLPREDNISOLONE INJ 40 MG/1 ML SDV IV SCH (05:51)
--- NOTE | 2019-01-19 06:58 | PDOC PROGRESS REPORT ---
Subjective Progress Note for:: 01/18/19 Subjective:: This is a 68 year old female patient with multiple comorbidities including morbid obesity, chronically infected diabetic foot ulcer, stage IV CKD, COPD, GUDELIA on CPAP, hypertension and type 2 diabetes mellitus brought from [facility] due to hypoxia and altered mental status. She reportedly was found lethargic yesterday 01/17/19 morning at the [facility] and was noted to be hypoxic and unresponsive. Reportedly, a CPR was done by nursing staff before EMS came and noted that she had good pulses. In the ER, she was noted to be hypercapnic with initial PCO2 of 79 on VBG. She was placed on BIPAP and ABG on BIPAP showed a PCO of 58, PO2 of 133 and sats of 98%. Appears she had clear breath sounds on presentation. Noted her initial chest x-ray showed mild vascular prominence. Reviewed notes. Patient was recently admitted on 01/12/19 for due to increasing drainage on her chronic right foot ulcer. She underwent toe amputation by surgery on 01/13/10. She was subsequently discharged on 01/16. Called [facility] and spoke with patient's nurse, Adela who took over her care yesterday morning. She says that per report from night RN, patient was "okay" during the third shift lieutenant. She did receive her pain meds at night. Patient is supposed to be on CPAP at night but she is not sure if she was placed on CPAP during the night. She says that when she did her first assessment at 9 am, she noted that patient appeared very lethargic and was not responsive. She says her O2 sats then was 50%, BP was 99/45 and HR was 100. She denies that a CPR was done as patient was a DNR/DNI at [facility]. Rediscussed with patient and son/DPOA and patient is a FULL CODE. No acute event overnight. Upon encounter this morning, she appears more awake and alert. She is oriented to person, place and time but is not able to remember what happened at the [facility]. She denies chest pain or SOB. Repeat ABG shows worsening of hypercapnia even on BIPAP. Discussed with pulmonology, she will be switched to AVAPS mode. Repeat chest x-ray this morning is unremarkable. Reason For Visit: ACUTE RESPIRATORY FAILURE Physical Exam Vital Signs: Temp Pulse Resp BP Pulse Ox 97.7 F 94 14 150/68 H 97 01/18/19 08:00 01/18/19 10:00 01/18/19 10:05 01/18/19 10:05 01/18/19 10:05 Intake & Output 01/17/19 01/18/19 01/19/19 06:59 06:59 06:59 Intake Total 50 Output Total 705 400 Balance -655 -400 Weight 301 lb 5.95 oz General appearance: PRESENT: no acute distress, well-developed, well-nourished Head exam: PRESENT: atraumatic, normocephalic Eye exam: PRESENT: conjunctiva pink, EOMI, PERRLA. ABSENT: scleral icterus Ear exam: PRESENT: normal external ear exam Mouth exam: PRESENT: moist, tongue midline Neck exam: ABSENT: carotid bruit, JVD, lymphadenopathy, thyromegaly Respiratory exam: PRESENT: clear to auscultation emperatriz. ABSENT: rales, rhonchi, wheezes Cardiovascular exam: PRESENT: RRR. ABSENT: diastolic murmur, rubs, systolic murmur Pulses: PRESENT: normal dorsalis pedis pul GI/Abdominal exam: PRESENT: normal bowel sounds, soft. ABSENT: distended, guarding, mass, organolmegaly, rebound, tenderness Rectal exam: PRESENT: deferred Extremities exam: PRESENT: +2 edema Musculoskeletal exam: PRESENT: other - s/p right foor toe amputation Neurological exam: PRESENT: alert, awake, oriented to person, oriented to place, oriented to time, CN II-XII grossly intact. ABSENT: motor sensory deficit Results Laboratory Results: 01/18/19 04:00 01/18/19 04:00 01/17/19 01/17/19 01/18/19 12:40 16:59 04:00 WBC 8.5 RBC 3.26 L Hgb 10.0 L Hct 30.3 L MCV 93 MCH 30.8 MCHC 33.1 RDW 13.9 Plt Count 190 Seg Neutrophils % Not Reportable Lymphocytes % Not Reportable Monocytes % Not Reportable Eosinophils % Not Reportable Basophils % Not Reportable Absolute Neutrophils Not Reportable Absolute Lymphocytes Not Reportable Absolute Monocytes Not Reportable Absolute Eosinophils Not Reportable Absolute Basophils Not Reportable Carbonic Acid 1.72 H 1.75 H HCO3/H2CO3 Ratio 18:1 17:1 ABG pH 7.37 7.35 ABG pCO2 57.1 H 58.1 H ABG pO2 133.4 H 208.4 H ABG HCO3 32.6 H 31.2 H ABG O2 Saturation 98.5 H 99.3 H ABG Base Excess 6.1 4.5 FiO2 40% 40% Sodium Potassium Chloride Carbon Dioxide Anion Gap BUN Creatinine Est GFR ( Amer) Est GFR (Non-Af Amer) Glucose Calcium Magnesium 01/18/19 01/18/19 04:00 04:37 WBC RBC Hgb Hct MCV MCH MCHC RDW Plt Count Seg Neutrophils % Lymphocytes % Monocytes % Eosinophils % Basophils % Absolute Neutrophils Absolute Lymphocytes Absolute Monocytes Absolute Eosinophils Absolute Basophils Carbonic Acid 2.11 H HCO3/H2CO3 Ratio 16:1 ABG pH 7.32 L ABG pCO2 70.2 H* ABG pO2 114.9 H ABG HCO3 35.6 H ABG O2 Saturation 97.7 ABG Base Excess 7.0 FiO2 30% Sodium 141.6 Potassium 5.4 H Chloride 102 Carbon Dioxide 32 H Anion Gap 8 BUN 57 H Creatinine 2.14 H Est GFR ( Amer) 28 L Est GFR (Non-Af Amer) 23 L Glucose 206 H Calcium 10.6 H Magnesium 2.7 H 01/17/19 01/17/19 10:40 10:40 Creatine Kinase 48 CK-MB (CK-2) < 0.22 Troponin I 0.043 NT-Pro-B Natriuret Pep 1110 H Impressions: Chest X-Ray 01/18/19 06:00 IMPRESSION: No pneumonia or edema. Assessment & Plan - Diagnosis (1) Acute on chronic respiratory failure with hypoxia and hypercapnia Is this a current diagnosis for this admission?: Yes Plan: Patient has long standing GUDELIA and COPD. Her acute respiratory failure is likely multifactorial in nature. There is a question if she was kept on CPAP during the night, pain medications likely also contributed to her hypercapnia. Her chest x-ray on admission did show mild pulmonary prominence with no overt signs of congestion. As discussed with pulmonology, she will be switched to AVAP mode. Will recheck an ABG thereafter. No opiates for now. Caution with pain medications with her poor renal functions. (2) COPD (chronic obstructive pulmonary disease) Qualifiers: COPD type: unspecified COPD Qualified Code(s): J44.9 - Chronic obstructive pulmonary disease, unspecified Is this a current diagnosis for this admission?: Yes Plan: She was started on solumedrol 40 mg q8 on admission. Decrease to 40 mg daily. Continue breathing treatments prn. (3) Systolic CHF, acute on chronic Is this a current diagnosis for this admission?: Yes Plan: Started on IV Lasix 40 mg q12. Switch back to Phome PO Lasix regimen today. Recent echo was read having a low normal EF and grade 2 DD. (4) Chronic renal disease, stage IV Is this a current diagnosis for this admission?: Yes Plan: Creatinine appear to be at baseline. Nephrology has seen patient as well. Avoid nephrotoxic agents. (5) Hypothyroidism (acquired) Is this a current diagnosis for this admission?: Yes Plan: Resume synthroid. Will recheck a TSH. - Time Time Spent with patient: 35 or more minutes
[2019-01-19] MEDS: INSULIN LISPRO 100 UNIT/ML 3 ML VIAL SUBCUT SCH ×4 (07:18→22:28)
[2019-01-19] MEDS: ACETAMINOPHEN 325 MG TABLET PO PRN ×3 (07:38→19:47)
[2019-01-19] MEDS: LEVOFLOXACIN 250 MG/D5W RTU 250 MG/50 ML RTUPB IV SCH (09:56)
[2019-01-19] MEDS: SENNOSIDES/DOCUSATE 8.6-50 MG 1 EACH TABLET PO SCH (09:58)
[2019-01-19] MEDS: ASPIRIN 81 MG TABLET, ENT COATED PO SCH (09:58)
[2019-01-19] MEDS: FAMOTIDINE 20 MG TABLET PO SCH ×2 (09:58→22:27)
[2019-01-19] MEDS: FUROSEMIDE 80 MG TABLET PO SCH ×2 (09:58→19:48)
[2019-01-19] MEDS: TIOTROPIUM BROMIDE DPI 5 CAP/KIT (18 MCG/CAP) IH SCH (09:59)
[2019-01-19] MEDS ORDERED: INSULIN GLARGINE,HUM.REC.ANLOG 1,000 UNIT/10 ML VIAL (PYX) SUBCUT SCH (10:00)
[2019-01-19] MEDS ORDERED: LISINOPRIL 10 MG TABLET ONE (13:13)
[2019-01-19] MEDS ORDERED: CARVEDILOL 6.25 MG TABLET ONE (13:13)
--- NOTE | 2019-01-19 14:47 | PDOC PROGRESS REPORT ---
Subjective Progress Note for:: 01/19/19 Subjective:: This is a 68 year old female patient with multiple comorbidities including morbid obesity, chronically infected diabetic foot ulcer, stage IV CKD, COPD, GUDELIA on CPAP, hypertension and type 2 diabetes mellitus brought from snf due to hypoxia and altered mental status. She reportedly was found lethargic yesterday 01/17/19 morning at the snf and was noted to be hypoxic and unresponsive. Reportedly, a CPR was done by nursing staff before EMS came and noted that she had good pulses. In the ER, she was noted to be hypercapnic with initial PCO2 of 79 on VBG. She was placed on BIPAP and ABG on BIPAP showed a PCO of 58, PO2 of 133 and sats of 98%. Appears she had clear breath sounds on presentation. Noted her initial chest x-ray showed mild vascular prominence. Reviewed notes. Patient was recently admitted on 01/12/19 for due to increasing drainage on her chronic right foot ulcer. She underwent toe amputation by surgery on 01/13/10. She was subsequently discharged on 01/16. Called [facility] and spoke with patient's nurse, Adela who took over her care yesterday morning. 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 She did receive her pain meds at night. Patient is supposed to be on CPAP at night but she is not sure if she was placed on CPAP during the night. She says that when she did her first assessment at 9 am, she noted that patient appeared very lethargic and was not responsive. She says her O2 sats then was 50%, BP was 99/45 and HR was 100. She denies that a CPR was done as patient was a DNR/DNI at [facility]. Rediscussed with patient and son/DPOA and patient is a FULL CODE. Upon encounter this morning, she appears more awake and alert. She is oriented to person, place and time but is not able to remember what happened at the snf. She denies chest pain or SOB. Repeat ABG shows worsening of hypercapnia even on BIPAP. Discussed with pulmonology, she will be switched to AVAPS mode. Repeat chest x-ray this morning is unremarkable. 01/19: No acute event overnight. Her PCO2 has improved and remained stable after she was switched to AVAPS mode. She is more awake and alert today. She is oriented x 4. She will be downgraded from ICU. Reason For Visit: ACUTE RESPIRATORY FAILURE Physical Exam Vital Signs: Temp Pulse Resp BP Pulse Ox 97.9 F 81 16 183/84 H 100 01/19/19 12:00 01/19/19 12:26 01/19/19 12:26 01/19/19 12:00 01/19/19 12:26 Intake & Output 01/18/19 01/19/19 01/20/19 06:59 06:59 06:59 Intake Total 50 50 290 Output Total 705 5125 970 Balance -245 -2435 -680 Weight 301 lb 5.95 oz 297 lb 2.93 oz General appearance: PRESENT: no acute distress, well-developed, well-nourished Head exam: PRESENT: atraumatic, normocephalic Eye exam: PRESENT: conjunctiva pink, EOMI, PERRLA. ABSENT: scleral icterus Ear exam: PRESENT: normal external ear exam Mouth exam: PRESENT: moist, tongue midline Neck exam: ABSENT: carotid bruit, JVD, lymphadenopathy, thyromegaly Respiratory exam: PRESENT: clear to auscultation emperatriz. ABSENT: rales, rhonchi, wheezes Cardiovascular exam: PRESENT: RRR. ABSENT: diastolic murmur, rubs, systolic m urmur Pulses: PRESENT: normal dorsalis pedis pul GI/Abdominal exam: PRESENT: normal bowel sounds, soft. ABSENT: distended, guarding, mass, organolmegaly, rebound, tenderness Rectal exam: PRESENT: deferred Extremities exam: PRESENT: +1 edema Neurological exam: PRESENT: alert, awake, oriented to person, oriented to place, oriented to time, oriented to situation, CN II-XII grossly intact. ABSENT: motor sensory deficit Results Laboratory Results: 01/19/19 04:11 01/19/19 04:11 01/18/19 01/18/19 01/18/19 04:00 16:55 17:00 WBC RBC Hgb Hct MCV MCH MCHC RDW Plt Count Seg Neutrophils % Lymphocytes % Monocytes % Eosinophils % Basophils % Absolute Neutrophils Absolute Lymphocytes Absolute Monocytes Absolute Eosinophils Absolute Basophils Carbonic Acid 1.56 H HCO3/H2CO3 Ratio 20:1 ABG pH 7.41 ABG pCO2 51.8 H ABG pO2 75.1 L ABG HCO3 32.3 H ABG O2 Saturation 95.0 ABG Base Excess 6.2 FiO2 24% Sodium Potassium Chloride Carbon Dioxide Anion Gap BUN Creatinine Est GFR ( Amer) Est GFR (Non-Af Amer) Glucose Calcium Magnesium TSH 1.30 Urine Color YELLOW Urine Appearance CLOUDY Urine pH 5.0 Ur Specific Golden 1.010 Urine Protein NEGATIVE Urine Glucose (UA) >=500 H Urine Ketones TRACE H Urine Blood NEGATIVE Urine Nitrite NEGATIVE Ur Leukocyte Esterase SMALL H Urine WBC (Auto) 4 Urine RBC (Auto) 2 01/19/19 01/19/19 01/19/19 04:11 04:11 04:11 WBC 10.8 H RBC 3.23 L Hgb 10.0 L Hct 30.1 L MCV 93 MCH 31.0 MCHC 33.3 RDW 13.9 Plt Count 228 Seg Neutrophils % Not Reportable Lymphocytes % Not Reportable Monocytes % Not Reportable Eosinophils % Not Reportable Basophils % Not Reportable Absolute Neutrophils Not Reportable Absolute Lymphocytes Not Reportable Absolute Monocytes Not Reportable Absolute Eosinophils Not Reportable Absolute Basophils Not Reportable Carbonic Acid HCO3/H2CO3 Ratio ABG pH ABG pCO2 ABG pO2 ABG HCO3 ABG O2 Saturation ABG Base Excess FiO2 Sodium 137.6 Potassium 5.6 H Chloride 97 L Carbon Dioxide 30 Anion Gap 11 BUN 64 H Creatinine 1.99 H Est GFR ( Amer) 30 L Est GFR (Non-Af Amer) 25 L Glucose 441 H* Calcium 10.7 H Magnesium 2.9 H TSH Urine Color Urine Appearance Urine pH Ur Specific Golden Urine Protein Urine Glucose (UA) Urine Ketones Urine Blood Urine Nitrite Ur Leukocyte Esterase Urine WBC (Auto) Urine RBC (Auto) 01/19/19 05:15 WBC RBC Hgb Hct MCV MCH MCHC RDW Plt Count Seg Neutrophils % Lymphocytes % Monocytes % Eosinophils % Basophils % Absolute Neutrophils Absolute Lymphocytes Absolute Monocytes Absolute Eosinophils Absolute Basophils Carbonic Acid 1.59 H HCO3/H2CO3 Ratio 20:1 ABG pH 7.40 ABG pCO2 52.9 H ABG pO2 101.0 H ABG HCO3 32.2 H ABG O2 Saturation 97.5 ABG Base Excess 6.3 FiO2 30% Sodium Potassium Chloride Carbon Dioxide Anion Gap BUN Creatinine Est GFR ( Amer) Est GFR (Non-Af Amer) Glucose Calcium Magnesium TSH Urine Color Urine Appearance Urine pH Ur Specific Golden Urine Protein Urine Glucose (UA) Urine Ketones Urine Blood Urine Nitrite Ur Leukocyte Esterase Urine WBC (Auto) Urine RBC (Auto) 01/17/19 01/17/19 10:40 10:40 Creatine Kinase 48 CK-MB (CK-2) < 0.22 Troponin I 0.043 NT-Pro-B Natriuret Pep 1110 H Impressions: Chest X-Ray 01/18/19 06:00 IMPRESSION: No pneumonia or edema. Assessment & Plan - Diagnosis (1) Acute on chronic respiratory failure with hypoxia and hypercapnia Is this a current diagnosis for this admission?: Yes Plan: Patient has long standing GUDELIA and COPD. Her acute respiratory failure is likely multifactorial in nature. There is a question if she was kept on CPAP during the night, pain medications likely also contributed to her hypercapnia. Her chest x-ray on admission did show mild pulmonary prominence with no overt signs of congestion. 01/18: As discussed with pulmonology, she will be switched to AVAP mode. Will recheck an ABG thereafter. No opiates for now. Caution with pain medications with her poor renal functions. 01/19: Her PCO2 has improved and remained stable after she was switched to AVAPS mode. She is more awake and alert today. She is oriented x 4. She will be downgraded from ICU. (2) COPD (chronic obstructive pulmonary disease) Qualifiers: COPD type: unspecified COPD Qualified Code(s): J44.9 - Chronic obstructive pulmonary disease, unspecified Is this a current diagnosis for this admission?: Yes Plan: She was started on solumedrol 40 mg q8 on admission. Decrease to 40 mg daily. Continue breathing treatments prn. 01/19: Switch solumedrol to prednisone. (3) Systolic CHF, acute on chronic Is this a current diagnosis for this admission?: Yes Plan: Started on IV Lasix 40 mg q12. Switch back to home PO Lasix regimen today. Recent echo was read having a low normal EF and grade 2 DD. 01/19: Continue oral Lasix 80 mg bid. (4) Chronic renal disease, stage IV Is this a current diagnosis for this admission?: Yes Plan: Creatinine appear to be at baseline. Nephrology has seen patient as well. Avoid nephrotoxic agents. (5) Hypothyroidism (acquired) Is this a current diagnosis for this admission?: Yes Plan: Resumed synthroid. TSH within normal limit. (6) Diabetes Qualifiers: Diabetes mellitus type: type 1 Diabetes mellitus complication status: without complication Qualified Code(s): E10.9 - Type 1 diabetes mellitus without complications Is this a current diagnosis for this admission?: Yes Plan: Resumed Lantus. Continue sliding scale. (7) Hyperkalemia Is this a current diagnosis for this admission?: Yes Plan: Started on Patiromer by nephrology. - Time Time Spent with patient: 25-34 minutes
[2019-01-19] MEDS: PATIROMER 8.4 GM SUSP PACKET PO SCH (16:45)
[2019-01-19] MEDS: INSULIN GLARGINE,HUM.REC.ANLOG 300 UNIT/3 ML INSULN.PEN SUBCUT SCH (17:00)
[2019-01-19] MEDS: PREDNISONE 20 MG TABLET PO SCH (19:47)
[2019-01-19] MEDS: TRAMADOL HCL 50 MG TABLET PO PRN (19:48)
[2019-01-19] MEDS ORDERED: METHYLPREDNISOLONE INJ 40 MG/1 ML SDV IV SCH (22:00)
[2019-01-19] MEDS: CARVEDILOL 12.5 MG TABLET PO SCH (22:27)
[2019-01-20 04:19] LABS: MEAN CORPUSCULAR HEMOGLOBIN 30.6 pg (27.0-33.4); MEAN CORPUSCULAR HGB CONC 33.3 g/dL (32.0-36.0); MEAN CORPUSCULAR VOLUME 92 fl (80-97); PLATELET COUNT 237 10^3/uL (150-450); RED BLOOD COUNT 3.26 10^6/uL (3.72-5.28); RED CELL DISTRIBUTION WIDTH 13.8 % (11.5-14.0); WHITE BLOOD COUNT 14.4 10^3/uL (4.0-10.5)
[2019-01-20 04:29] LABS: ANION GAP 8 (5-19); BLOOD UREA NITROGEN 74 mg/dL (7-20); CALCIUM 10.7 mg/dL (8.4-10.2); CARBON DIOXIDE 32 mmol/L (22-30); CHLORIDE 97 mmol/L (98-107); GLUCOSE 358 mg/dL (75-110); SODIUM 136.8 mmol/L (137-145)
[2019-01-20] MEDS: LEVALBUTEROL HCL NEB 0.63 MG/3 ML AMPUL NEB SCH ×5 (04:34→20:09)
[2019-01-20 04:38] LABS: ABSOLUTE LYMPHOCYTES# (MANUAL) 2.7 10^3/uL (0.5-4.7); ABSOLUTE MONOCYTES # (MANUAL) 1.3 10^3/uL (0.1-1.4); ABSOLUTE NEUTROPHILS# (MANUAL) 10.4 10^3/uL (1.7-8.2); BASOPHILS % (MANUAL) 0 % (0-2); EOSINOPHILS % (MANUAL) 0 % (0-6); LYMPHOCYTES % (MANUAL) 19 % (13-45); MONOCYTES % (MANUAL) 9 % (3-13); SEGMENTED NEUTROPHILS % (MAN) 72 % (42-78); TOTAL CELLS COUNTED 100
[2019-01-20 04:39] LABS: TOXIC GRANULATION SLIGHT; TOXIC VACUOLATION PRESENT
[2019-01-20 04:41] LABS: OVALOCYTES SLIGHT; PLATELET COMMENT ADEQUATE; POIKILOCYTOSIS SLIGHT; POLYCHROMASIA SLIGHT; TEAR DROP CELLS SLIGHT
[2019-01-20] MEDS: HEPARIN SOD (PORCINE) 5,000 UNIT/ML 1 ML SYRINGE SUBCUT SCH ×3 (05:20→21:39)
[2019-01-20] MEDS: LEVOTHYROXINE SODIUM 0.088 MG TABLET PO SCH (05:20)
[2019-01-20] MEDS: INSULIN LISPRO 100 UNIT/ML 3 ML VIAL SUBCUT SCH ×4 (08:35→21:42)
[2019-01-20] MEDS: FUROSEMIDE 80 MG TABLET PO SCH ×2 (09:08→17:15)
[2019-01-20] MEDS: ASPIRIN 81 MG TABLET, ENT COATED PO SCH (09:08)
[2019-01-20] MEDS: AMLODIPINE BESYLATE 5 MG TABLET PO SCH (09:08)
[2019-01-20] MEDS: SENNOSIDES/DOCUSATE 8.6-50 MG 1 EACH TABLET PO SCH (09:08)
[2019-01-20] MEDS: CARVEDILOL 12.5 MG TABLET PO SCH ×2 (09:08→21:40)
[2019-01-20] MEDS: PREDNISONE 20 MG TABLET PO SCH ×2 (09:08→17:15)
[2019-01-20] MEDS: ACETAMINOPHEN 325 MG TABLET PO PRN ×3 (09:08→21:39)
[2019-01-20] MEDS: FAMOTIDINE 20 MG TABLET PO SCH ×2 (09:08→21:42)
[2019-01-20] MEDS: INSULIN GLARGINE,HUM.REC.ANLOG 300 UNIT/3 ML INSULN.PEN SUBCUT SCH ×2 (09:09→17:14)
[2019-01-20] MEDS: LISINOPRIL 10 MG TABLET PO SCH (09:09)
[2019-01-20] MEDS: LEVOFLOXACIN 250 MG/D5W RTU 250 MG/50 ML RTUPB IV SCH (09:09)
[2019-01-20] MEDS: TIOTROPIUM BROMIDE DPI 5 CAP/KIT (18 MCG/CAP) IH SCH (09:09)
[2019-01-20] MEDS: TRAMADOL HCL 50 MG TABLET PO PRN ×2 (12:29→21:41)
--- NOTE | 2019-01-20 15:52 | PDOC PROGRESS REPORT ---
Subjective Progress Note for:: 01/20/19 Subjective:: This is a 68 year old female patient with multiple comorbidities including morbid obesity, chronically infected diabetic foot ulcer, stage IV CKD, COPD, GUDELIA on CPAP, hypertension and type 2 [facility] and altered mental status. She reportedly was [facility] and was noted to be hypoxic and unresponsive. Reportedly, a CPR was done by nursing staff before EMS came and noted that she had good pulses. In the ER, she was noted to be hypercapnic with initial PCO2 of 79 on VBG. She was placed on BIPAP and ABG on BIPAP showed a PCO of 58, PO2 of 133 and sats of 98%. Appears she had clear breath sounds on presentation. Noted her initial chest x-ray showed mild vascular prominence. Reviewed notes. Patient was recently admitted on 01/12/19 for due to increasing drainage on her chronic right foot ulcer. She underwent toe amputation by surgery on 01/13/10. She was subsequently discharged on 01/16. Called [facility] and spoke with patient's nurse, Adela who took over her care yesterday morning. She says that per report from night RN, patient was "okay" during the shift supervisor melting. She did receive her pain meds at night. Patient is supposed to be on CPAP at night but she is not sure if she was placed on CPAP during the night. She says that when she did her first assessment at 9 am, she noted that patient appeared very lethargic and was not responsive. She says her O2 sats then was 50%, BP was 99/45 and HR was 100. She denies that a CPR was done as patient was a DNR/DNI at [facility]. Rediscussed with patient and son/DPOA and patient is a FULL CODE. Upon encounter this morning, she appears more awake and alert. She is oriented to person, place and time but is not able to remember what happened at the jail. She denies chest pain or SOB. Repeat ABG shows worsening of hypercapnia even on BIPAP. Discussed with pulmonology, she will be switched to AVAPS mode. Repeat chest x-ray this morning is unremarkable. 01/19: Her PCO2 has improved and remained stable after she was switched to AVAPS mode. She is more awake and alert today. She is oriented x 4. She will be downgraded from ICU. 01/20: No acute event overnight. She continues to do well on AVAPS. Denies SOB or chest pain. Anticipating discharge in 24 hrs pending SNF/rehab placement availability. Reason For Visit: ACUTE RESPIRATORY FAILURE Physical Exam Vital Signs: Temp Pulse Resp BP Pulse Ox 97.7 F 69 14 144/55 H 100 01/20/19 12:00 01/20/19 15:27 01/20/19 15:27 01/20/19 12:09 01/20/19 15:27 Intake & Output 01/19/19 01/20/19 01/21/19 06:59 06:59 06:59 Intake Total 50 500 50 Output Total 2485 2384 595 Balance -9675 -1495 -545 Weight 297 lb 2.93 oz 298 lb 8.094 oz General appearance: PRESENT: no acute distress, well-developed, well-nourished Head exam: PRESENT: atraumatic, normocephalic Eye exam: PRESENT: conjunctiva pink, EOMI, PERRLA. ABSENT: scleral icterus Ear exam: PRESENT: normal external ear exam Mouth exam: PRESENT: moist, tongue midline Neck exam: ABSENT: carotid bruit, JVD, lymphadenopathy, thyromegaly Respiratory exam: PRESENT: clear to auscultation emperatriz. ABSENT: rales, rhonchi, wheezes Cardiovascular exam: PRESENT: RRR. ABSENT: diastolic murmur, rubs, systolic murmur Pulses: PRESENT: normal dorsalis pedis pul GI/Abdominal exam: PRESENT: normal bowel sounds, soft. ABSENT: distended, guarding, mass, organolmegaly, rebound, tenderness Rectal exam: PRESENT: deferred Extremities exam: PRESENT: +2 edema Neurological exam: PRESENT: alert, awake, oriented to person, oriented to place, oriented to time, oriented to situation, CN II-XII grossly intact. ABSENT: motor sensory deficit Results Laboratory Results: 01/20/19 04:04 01/20/19 04:04 01/19/19 01/20/19 01/20/19 20:01 04:04 04:04 WBC 14.4 H RBC 3.26 L Hgb 10.0 L Hct 30.0 L MCV 92 MCH 30.6 MCHC 33.3 RDW 13.8 Plt Count 237 Seg Neutrophils % Not Reportable Lymphocytes % Not Reportable Monocytes % Not Reportable Eosinophils % Not Reportable Basophils % Not Reportable Absolute Neutrophils Not Reportable Absolute Lymphocytes Not Reportable Absolute Monocytes Not Reportable Absolute Eosinophils Not Reportable Absolute Basophils Not Reportable Sodium 136.8 L Potassium 5.1 H 5.0 Chloride 97 L Carbon Dioxide 32 H Anion Gap 8 BUN 74 H Creatinine 2.43 H Est GFR ( Amer) 24 L Est GFR (Non-Af Amer) 20 L Glucose 358 H Calcium 10.7 H Magnesium 2.8 H 01/17/19 01/17/19 10:40 10:40 Creatine Kinase 48 CK-MB (CK-2) < 0.22 Troponin I 0.043 NT-Pro-B Natriuret Pep 1110 H Impressions: Chest X-Ray 01/18/19 06:00 IMPRESSION: No pneumonia or edema. Assessment & Plan - Diagnosis (1) Acute on chronic respiratory failure with hypoxia and hypercapnia Is this a current diagnosis for this admission?: Yes Plan: Patient has long standing GUDELIA and COPD. Her acute respiratory failure is likely multifactorial in nature. There is a question if she was kept on CPAP during the night, pain medications likely also contributed to her hypercapnia. Her chest x-ray on admission did show mild pulmonary prominence with no overt signs of congestion. 01/18: As discussed with pulmonology, she will be switched to AVAP mode. Will recheck an ABG thereafter. No opiates for now. Caution with pain medications with her poor renal functions. 01/19: Her PCO2 has improved and remained stable after she was switched to AVAPS mode. She is more awake and alert today. She is oriented x 4. She will be downgraded from ICU. (2) COPD (chronic obstructive pulmonary disease) Qualifiers: COPD type: unspecified COPD Qualified Code(s): J44.9 - Chronic obstructive pulmonary disease, unspecified Is this a current diagnosis for this admission?: Yes Plan: She was started on solumedrol 40 mg q8 on admission. Decrease to 40 mg daily. Continue breathing treatments prn. 01/19: Switched solumedrol to prednisone. (3) Systolic CHF, acute on chronic Is this a current diagnosis for this admission?: Yes Plan: Started on IV Lasix 40 mg q12. Switch back to home PO Lasix regimen today. Recent echo was read having a low normal EF and grade 2 DD. 01/19: Continue oral Lasix 80 mg bid. (4) Chronic renal disease, stage IV Is this a current diagnosis for this admission?: Yes Plan: Creatinine appear to be at baseline. Nephrology has seen patient as well. Avoid nephrotoxic agents. (5) Hypothyroidism (acquired) Is this a current diagnosis for this admission?: Yes Plan: Resumed synthroid. TSH within normal limit. (6) Diabetes Qualifiers: Diabetes mellitus type: type 1 Diabetes mellitus complication status: without complication Qualified Code(s): E10.9 - Type 1 diabetes mellitus without complications Is this a current diagnosis for this admission?: Yes Plan: Resumed Lantus. Continue sliding scale. 01/20: Sugars still running in the 400s. Steroids contributing to hyperglycemia. Increase Lantus to 50 u bid. (7) Hyperkalemia Is this a current diagnosis for this admission?: Yes Plan: Started on Patiromer by nephrology.
[2019-01-20] MEDS: PATIROMER 8.4 GM SUSP PACKET PO SCH (16:27)
[2019-01-21] MEDS: LEVALBUTEROL HCL NEB 0.63 MG/3 ML AMPUL NEB SCH ×6 (00:04→20:38)
[2019-01-21] MEDS: LEVOTHYROXINE SODIUM 0.088 MG TABLET PO SCH (05:43)
[2019-01-21] MEDS: HEPARIN SOD (PORCINE) 5,000 UNIT/ML 1 ML SYRINGE SUBCUT SCH ×3 (05:43→21:36)
[2019-01-21] MEDS: INSULIN LISPRO 100 UNIT/ML 3 ML VIAL SUBCUT SCH ×4 (08:47→21:35)
[2019-01-21] MEDS: TRAMADOL HCL 50 MG TABLET PO PRN ×2 (08:49→17:25)
[2019-01-21] MEDS: LEVOFLOXACIN 250 MG/D5W RTU 250 MG/50 ML RTUPB IV SCH (09:47)
[2019-01-21] MEDS: AMLODIPINE BESYLATE 5 MG TABLET PO SCH (09:48)
[2019-01-21] MEDS: FAMOTIDINE 20 MG TABLET PO SCH ×2 (09:48→21:36)
[2019-01-21] MEDS: CARVEDILOL 12.5 MG TABLET PO SCH ×2 (09:48→21:36)
[2019-01-21] MEDS: SENNOSIDES/DOCUSATE 8.6-50 MG 1 EACH TABLET PO SCH (09:48)
[2019-01-21] MEDS: PREDNISONE 20 MG TABLET PO SCH (09:48)
[2019-01-21] MEDS: ASPIRIN 81 MG TABLET, ENT COATED PO SCH (09:48)
[2019-01-21] MEDS: LISINOPRIL 10 MG TABLET PO SCH (09:48)
[2019-01-21] MEDS: FUROSEMIDE 80 MG TABLET PO SCH (09:48)
[2019-01-21] MEDS: INSULIN GLARGINE,HUM.REC.ANLOG 300 UNIT/3 ML INSULN.PEN SUBCUT SCH ×2 (10:02→17:27)
[2019-01-21] MEDS: TIOTROPIUM BROMIDE DPI 5 CAP/KIT (18 MCG/CAP) IH SCH (10:02)
--- NOTE | 2019-01-21 11:26 | PDOC CONSULTATION ---
Consultation Consult Date: 01/18/19 Attending physician:: TATO FONTANA Consult reason:: acute/chronic resp failure History of Present Illness Admission Date/PCP: 01/17/19 12:22 RAO PAGE MD History of Present Illness: LORETO JOSHI is a 68 year old female, s [facility] well-known to [facility] in [facility] COPD dementia hypertension. Upon her presentation this time she had altered mental status was found to behypoxemic as well as hypercapnic she was subsequently placed on BiPAP which improved her mentation as well as her acid-base status Past Medical History Cardiac Medical History: Reports: Atrial Fibrillation - Paroxysmal, Congestive Heart Failure, Coronary Artery Disease, Myocardial Infarction, Hyperlipidema, Hypertension, Pulmonary Embolism Denies: DVT Pulmonary Medical History: Reports: Chronic Obstructive Pulmonary Disease (COPD), Pneumonia, Sleep Apnea Denies: Asthma, Bronchitis Neurological Medical History: Denies: Migraine, Seizures Endocrine Medical History: Reports: Diabetes Mellitus Type 2, Hypothyroidism Denies: Diabetes Mellitus Type 1, Hyperthyroidism Renal/ Medical History: Reports: End Stage Renal Disease Malignancy Medical History: Reports: Cervical Cancer GI Medical History: Denies: Cirrhosis, Hepatitis Musculoskeltal Medical History: Reports: Arthritis, Gout Skin Medical History: Denies: Eczema, Psoriasis Psychiatric Medical History: Reports: Depression Hematology: Reports: Anemia Denies: Bleeding Tendencies Infectious Medical History: Reports: Clostridium Difficile - History of severe persistent C. difficile while in [place] and underwent fec Past Surgical History Past Surgical History: Reports: Appendectomy, Section, Cholecystectomy, Herniorrhaphy, Other - Breast cyst, history of fecal transplant for C. difficile Denies: Hysterectomy Social History Information Source[facility] Smoking Status: Former Smoker Passive smoke exposure as: Both Frequency of Alcohol Use: None Hx Recreational Drug Use: No Drugs: None Hx Prescription Drug Abuse: No Do you have pets?: No Have you had any respiratory illnesses as a child?: No Have you been exposed to any sick contacts recently?: No Have you had any recent respiratory illnesses?: No Have you travelled outside of [place] in the past 12 months?: No - Advance Directive Resuscitation Status: Full Code Family History Family History: CAD, DM, Hypertension, Malignancy, Thyroid Disfunction Parental Family History Reviewed: Yes Children Family History Reviewed: Yes Sibling(s) Family History Reviewed.: Yes Medication/Allergy Home Medications: Atorvastatin Calcium [Lipitor 20 mg Tablet] 20 mg PO QHS 10/17/18 Carvedilol [Coreg 12.5 mg Tablet] 12.5 mg PO Q12 10/17/18 Clobetasol Propionate [Temovate Solution] 1 applic TOP QHS MDD SCALP & EAR LOBES 10/17/18 Docusate Sodium [Colace 100 mg Capsule] 100 mg PO QAM 10/17/18 Fluticasone Propionate [Flonase Nasal [place] 50 Mcg/[place] 16 gm] 2 spray NASL QAM 10/17/18 Furosemide [Lasix 80 mg Tablet] 80 mg PO BID 10/17/18 Levothyroxine Sodium 88 mcg PO Q6AM 10/17/18 Lifitegrast [Xiidra] 1 drop OU BID 10/17/18 Ondansetron HCl [Zofran 4 mg Tablet] 4 mg PO Q8HP PRN 10/17/18 Phenol [Chloraseptic] 2 sprays PO BIDP PRN 10/17/18 Pimecrolimus [Elidel] 1 applic TOP BID MDD FACE & EARS FOR FLAKY SKIN 10/17/18 Potassium Chloride [K-Tab ER] 20 meq PO BID 10/17/18 Pregabalin [Lyrica 100 mg Capsule] 100 mg PO Q8 10/17/18 Ranitidine HCl [Zantac 150 mg Tablet] 75 mg PO BID 10/17/18 Sodium Chloride [Saline Mist] 1 spray NASL ACHS 10/17/18 Trazodone HCl [Desyrel 50 mg Tablet] 25 mg PO QHS 10/17/18 Amlodipine Besylate [Norvasc 5 mg Tablet] 5 mg PO DAILY #30 tablet 10/25/18 Aspirin [Ecotrin 81 mg EC Tablet] 81 mg PO DAILY #30 tabec 10/25/18 Budesonide [Pulmicort Neb 0.5 mg/2 ml Ampul] 0.5 mg NEB RTQ12 #60 ampul.neb 10/25/18 Cetirizine HCl [Zyrtec 5 mg Tablet] 5 mg PO QAM #30 tablet 10/25/18 Cholecalciferol (Vitamin D3) [Vitamin D3 1000 Unit Tablet] 5,000 unit PO DAILY tablet 10/25/18 Famotidine [Pepcid 20 mg Tablet] 20 mg PO QHS #30 tablet 10/25/18 Ferrous Sulfate [Feosol 325 mg Tablet] 325 mg PO DAILY #0 tablet 10/25/18 Insulin Glargine,Hum.rec.anlog [Lantus Insulin 100 Unit/1 ml 10 ml] 60 unit SUBCUT BID #1 unit 10/25/18 Insulin Regular, Human [Humulin R (Reg) Insulin 100 unit/mL] 0 - 12 unit SUBCUT ACHSP PRN #1 vial 10/25/18 Lisinopril [Prinivil 10 mg Tablet] 10 mg PO DAILY #30 tablet 10/25/18 Albuterol Sulfate [Proventil 0.5% Neb 2.5 mg/0.5 ml Vial.neb] 2.5 mg NEB RTQ4HP PRN 10/28/18 Ketotifen Fumarate [Zaditor] 1 drop OU BID 01/12/19 Sennosides [Senna] 8.6 mg PO BID 01/12/19 Tamsulosin HCl [Flomax 0.4 mg Cap.sr] 0.4 mg PO QHS 01/12/19 Acetaminophen [Tylenol 325 mg Tablet] 325 mg PO Q4HP PRN tablet 01/16/19 Nystatin [Mycostatin Topical Powder 15 gm] 1 applic TP DAILY bottle 01/16/19 Oxycodone HCl/Acetaminophen [Percocet 5-325 mg Tablet] 1 tab PO Q6HP PRN #12 ta blet 01/16/19 Sennosides/Docusate 8.6-50 mg [Senna Plus Tablet] 1 each PO DAILY tablet 01/16/19 Lifitegrast [Xiidra] 1 each OU BID 01/17/19 Tramadol HCl [Ultram 50 mg Tablet] 50 mg PO Q4HP PRN 01/17/19 Allergies/Adverse Reactions: No Known Allergies Allergy (Verified 03/15/18 15:04) Review of Systems ROS unobtainable: Due to mental status - 52468 Physical Exam Vital Signs: Temp Pulse Resp BP Pulse Ox 97.7 F 90 20 151/81 H 100 01/18/19 08:00 01/18/19 08:26 01/18/19 08:28 01/18/19 08:00 01/18/19 08:28 Intake & Output 01/17/19 01/18/19 01/19/19 06:59 06:59 06:59 Output Total 705 150 Balance -705 -150 Weight 136.7 kg General appearance: PRESENT: no acute distress, disheveled, morbidly obese. ABSENT: cooperative Head exam: PRESENT: atraumatic, normocephalic Eye exam: PRESENT: conjunctiva pale, EOMI. ABSENT: nystagmus, periorbital swelling, scleral icterus Mouth exam: PRESENT: dry mucosa, neck supple, tongue midline Neck exam: ABSENT: carotid bruit, full ROM, JVD, lymphadenopathy, meningismus, tenderness, thyromegaly, tracheal deviation, tracheostomy, other Respiratory exam: PRESENT: decreased breath sounds, prolonged expiratory phas, rales, rhonchi, unlabored, wheezes. ABSENT: retraction, stridor Cardiovascular exam: PRESENT: RRR, +S1, +S2, other - 79894 Pulses: PRESENT: normal radial pulses - 24086 GI/Abdominal exam: PRESENT: soft. ABSENT: tenderness Gentrourinary exam: PRESENT: indwelling catheter Extremities exam: PRESENT: pedal edema. ABSENT: calf tenderness, clubbing, joint swelling Musculoskeletal exam: ABSENT: ambulatory, deformity, dislocation Neurological exam: PRESENT: altered, awake Skin exam: PRESENT: dry - 22587 Results Laboratory Results: 01/18/19 04:00 01/18/19 04:00 01/17/19 01/17/19 01/17/19 10:40 10:40 10:40 WBC 10.2 RBC 3.29 L Hgb 10.1 L Hct 30.7 L MCV 93 MCH 30.7 MCHC 33.0 RDW 14.2 H Plt Count 208 Seg Neutrophils % Not Reportable Lymphocytes % Not Reportable Monocytes % Not Reportable Eosinophils % Not Reportable Basophils % Not Reportable Absolute Neutrophils Not Reportable Absolute Lymphocytes Not Reportable Absolute Monocytes Not Reportable Absolute Eosinophils Not Reportable Absolute Basophils Not Reportable Carbonic Acid HCO3/H2CO3 Ratio ABG pH ABG pCO2 ABG pO2 ABG HCO3 ABG O2 Saturation ABG Base Excess VBG pH 7.28 L VBG pCO2 79.1 H* VBG HCO3 36.0 H VBG Base Excess 6.8 FiO2 Sodium 140.7 Potassium 5.6 H Chloride 102 Carbon Dioxide 32 H Anion Gap 7 BUN 54 H Creatinine 1.94 H Est GFR ( Amer) 31 L Est GFR (Non-Af Amer) 26 L Glucose 117 H Lactic Acid Calcium 10.5 H Magnesium Total Bilirubin 0.5 AST 40 H ALT 32 Alkaline Phosphatase 172 H Total Protein 7.3 Albumin 4.0 Lipase 76.0 01/17/19 01/17/19 01/17/19 10:40 11:06 12:40 WBC RBC Hgb Hct MCV MCH MCHC RDW Plt Count Seg Neutrophils % Lymphocytes % Monocytes % Eosinophils % Basophils % Absolute Neutrophils Absolute Lymphocytes Absolute Monocytes Absolute Eosinophils Absolute Basophils Carbonic Acid Cancelled 1.72 H HCO3/H2CO3 Ratio Cancelled 18:1 ABG pH Cancelled 7.37 ABG pCO2 Cancelled 57.1 H ABG pO2 Cancelled 133.4 H ABG HCO3 Cancelled 32.6 H ABG O2 Saturation Cancelled 98.5 H ABG Base Excess Cancelled 6.1 VBG pH VBG pCO2 VBG HCO3 VBG Base Excess FiO2 Cancelled 40% Sodium Potassium Chloride Carbon Dioxide Anion Gap BUN Creatinine Est GFR ( Amer) Est GFR (Non-Af Amer) Glucose Lactic Acid 1.0 Calcium Magnesium Total Bilirubin AST ALT Alkaline Phosphatase Total Protein Albumin Lipase 01/17/19 01/18/19 01/18/19 16:59 04:00 04:00 WBC 8.5 RBC 3.26 L Hgb 10.0 L Hct 30.3 L MCV 93 MCH 30.8 MCHC 33.1 RDW 13.9 Plt Count 190 Seg Neutrophils % Not Reportable Lymphocytes % Not Reportable Monocytes % Not Reportable Eosinophils % Not Reportable Basophils % Not Reportable Absolute Neutrophils Not Reportable Absolute Lymphocytes Not Reportable Absolute Monocytes Not Reportable Absolute Eosinophils Not Reportable Absolute Basophils Not Reportable Carbonic Acid 1.75 H HCO3/H2CO3 Ratio 17:1 ABG pH 7.35 ABG pCO2 58.1 H ABG pO2 208.4 H ABG HCO3 31.2 H ABG O2 Saturation 99.3 H ABG Base Excess 4.5 VBG pH VBG pCO2 VBG HCO3 VBG Base Excess FiO2 40% Sodium 141.6 Potassium 5.4 H Chloride 102 Carbon Dioxide 32 H Anion Gap 8 BUN 57 H Creatinine 2.14 H Est GFR ( Amer) 28 L Est GFR (Non-Af Amer) 23 L Glucose 206 H Lactic Acid Calcium 10.6 H Magnesium 2.7 H Total Bilirubin AST ALT Alkaline Phosphatase Total Protein Albumin Lipase 01/18/19 04:37 WBC RBC Hgb Hct MCV MCH MCHC RDW Plt Count Seg Neutrophils % Lymphocytes % Monocytes % Eosinophils % Basophils % Absolute Neutrophils Absolute Lymphocytes Absolute Monocytes Absolute Eosinophils Absolute Basophils Carbonic Acid 2.11 H HCO3/H2CO3 Ratio 16:1 ABG pH 7.32 L ABG pCO2 70.2 H* ABG pO2 114.9 H ABG HCO3 35.6 H ABG O2 Saturation 97.7 ABG Base Excess 7.0 VBG pH VBG pCO2 VBG HCO3 VBG Base Excess FiO2 30% Sodium Potassium Chloride Carbon Dioxide Anion Gap BUN Creatinine Est GFR ( Amer) Est GFR (Non-Af Amer) Glucose Lactic Acid Calcium Magnesium Total Bilirubin AST ALT Alkaline Phosphatase Total Protein Albumin Lipase 01/17/19 01/17/19 10:40 10:40 Creatine Kinase 48 CK-MB (CK-2) < 0.22 Troponin I 0.043 NT-Pro-B Natriuret Pep 1110 H Impressions: Chest X-Ray 01/18/19 06:00 IMPRESSION: No pneumonia or edema. Assessment & Plan - Diagnosis (1) Acute on chronic respiratory failure with hypoxemia Is this a current diagnosis for this admission?: Yes Plan: Improving with noninvasive positive pressure ventilation (2) COPD (chronic obstructive pulmonary disease) Qualifiers: Emphysema type: unspecified Is this a current diagnosis for this admission?: Yes Plan: Continue current bronchodilator therapy (3) Chronic atrial fibrillation Is this a current diagnosis for this admission?: Yes Plan: stable at this time (4) Chronic renal disease, stage IV Is this a current diagnosis for this admission?: Yes Plan: As per nephrology (5) Obstructive sleep apnea Is this a current diagnosis for this admission?: Yes Plan: Continue noninvasive positive pressure ventilation (6) Morbid obesity with BMI of 45.0-49.9, adult Plan: Nutrition consult (7) Obstructive sleep apnea Is this a current diagnosis for this admission?: Yes Plan: NIPPV - Time Total Critical Time (Minutes): 55
--- NOTE | 2019-01-21 11:42 | PDOC PROGRESS REPORT ---
Subjective Progress Note for:: 01/21/19 Reason For Visit: Patient seen today. She is on BiPAP. Son is by the bedside. Patient generally feels better since yesterday. She has had decent amount of breakfast this morning. History reviewed with the patient and the son. She had right big toe amputated for diabetic foot ulcer/ischemia approximately 2 weeks ago and was discharged to the group home. She was brought back with encephalopathy/syncope. No history of any fever or chills. She has got a history of neurogenic bladder and has got a Moreira catheter inserted and is making good amounts of urine. Labs and m edications were reviewed with the patient and her son. Her creatinine is almost back to baseline. Physical Exam Vital Signs: Temp Pulse Resp BP Pulse Ox 97.4 F 68 18 155/71 H 98 01/21/19 07:45 01/21/19 08:35 01/21/19 08:35 01/21/19 07:45 01/21/19 08:35 Intake & Output 01/20/19 01/21/19 01/22/19 06:59 06:59 06:59 Intake Total 500 590 Output Total 1994 3435 Balance -1495 -7365 Weight 135.4 kg 136.2 kg General appearance: PRESENT: mild distress, obese Respiratory exam: PRESENT: clear to auscultation emperatriz, decreased breath sounds Cardiovascular exam: PRESENT: +S1, +S2, systolic murmur GI/Abdominal exam: PRESENT: normal bowel sounds, soft. ABSENT: organomegaly, tenderness Extremities exam: PRESENT: pedal edema Neurological exam: PRESENT: alert, awake, oriented to person, oriented to place Psychiatric exam: PRESENT: appropriate affect. ABSENT: anxious Skin exam: PRESENT: mottled - Has got venous stasis changes in both lower extremities., rash - Venous stasis changes in both lower extremities.. ABSENT: cyanosis, erythema, vesicles Results Laboratory Results: 01/20/19 04:04 01/20/19 04:04 01/17/19 01/17/19 10:40 10:40 Creatine Kinase 48 CK-MB (CK-2) < 0.22 Troponin I 0.043 NT-Pro-B Natriuret Pep 1110 H Impressions: Chest X-Ray 01/18/19 06:00 IMPRESSION: No pneumonia or edema. Assessment & Plan - Diagnosis (1) Acute encephalopathy Is this a current diagnosis for this admission?: Yes Plan: Much improved at the moment. Her son was at the bedside is happy with the progress she is making. (2) Acute kidney injury superimposed on chronic kidney disease Plan: She is acute on chronic kidney disease. Currently slightly on the dry side. Adjust diuretics. Monitor. No indications for renal replacements. (3) Acute on chronic respiratory failure with hypoxemia Is this a current diagnosis for this admission?: Yes Plan: Currently on BiPAP. History of sleep apnea on CPAP. (4) COPD (chronic obstructive pulmonary disease) Qualifiers: COPD type: unspecified COPD Qualified Code(s): J44.9 - Chronic obstructive pulmonary disease, unspecified Is this a current diagnosis for this admission?: Yes Plan: Presently stable. (5) Chronic renal disease, stage IV Is this a current diagnosis for this admission?: Yes Plan: She is got CKD stage IV with a base creatinine of 2-2.5. She is clinically a bit on the dry side. We will adjust diuretics.She is currently nonoliguric and renal functions are stable. No indications for renal replacements. (6) Hypertension Qualifiers: Hypertension type: essential hypertension Qualified Code(s): I10 - Essential (primary) hypertension Is this a current diagnosis for this admission?: Yes Plan: Relatively stable. Monitor. (7) Obstructive sleep apnea Is this a current diagnosis for this admission?: Yes Plan: Apparently compliant with CPAP at group home. (8) Type 2 diabetes mellitus Is this a current diagnosis for this admission?: Yes Plan: Complicated. Advised tight control for obvious reasons. (9) Morbid obesity with BMI of 45.0-49.9, adult Plan: Status quo. (10) Hyperkalemia Is this a current diagnosis for this admission?: Yes Plan: She has been started on Velt[place]. Monitor.
--- NOTE | 2019-01-21 13:29 | PDOC PROGRESS REPORT ---
Subjective Progress Note for:: 01/21/19 Subjective:: This is a 68 year old female patient with multiple comorbidities including morbid obesity, chronically infected diabetic foot ulcer, stage IV CKD, COPD, GUDELIA on CPAP, hypertension and type 2 diabetes mellitus brought from assisted due to hypoxia and altered mental status. She reportedly was found lethargic yesterday 01/17/19 morning at the assisted and was noted to be hypoxic and unresponsive. Reportedly, a CPR was done by nursing staff before EMS came and noted that she had good pulses. In the ER, she was noted to be hypercapnic with initial PCO2 of 79 on VBG. She was placed on BIPAP and ABG on BIPAP showed a PCO of 58, PO2 of 133 and sats of 98%. Appears she had clear breath sounds on presentation. Noted her initial chest x-ray showed mild vascular prominence. Reviewed notes. Patient was recently admitted on 01/12/19 for due to increasing drainage on her chronic right foot ulcer. She underwent toe amputation by surgery on 01/13/10. She was subsequently discharged on 01/16. Called [facility] and spoke with patient's nurse, Adela who took over her care yesterday morning. She says that per report from night RN, patient was "okay" during the assistant shift supervisor. She did receive her pain meds at night. Patient is supposed to be on CPAP at night but she is not sure if she was placed on CPAP during the night. She says that when she did her first assessment at 9 am, she noted that patient appeared very lethargic and was not responsive. She says her O2 sats then was 50%, BP was 99/45 and HR was 100. She denies that a CPR was done as patient was a DNR/DNI at [facility]. Rediscussed with patient and son/DPOA and patient is a FULL CODE. Upon encounter this morning, she appears more awake and alert. She is oriented to person, place and time but is not able to remember what happened at the assisted. She denies chest pain or SOB. Repeat ABG shows worsening of hypercapnia even on BIPAP. Discussed with pulmonology, she will be switched to AVAPS mode. Repeat chest x-ray this morning is unremarkable. 01/19: Her PCO2 has improved and remained stable after she was switched to AVAPS mode. She is more awake and alert today. She is oriented x 4. She will be downgraded from ICU. 01/20: She continues to do well on AVAPS. Denies SOB or chest pain. Anticipating discharge in 24 hrs pending SNF/rehab placement availability. 01/21: No acute event overnight. Patient continues to do well on AVAPS. Sugars running in the 300s. Insulin adjusted. Reduce prednisone to 20 mg daily today. She is awaiting SNF/rehab placement. Reason For Visit: ACUTE RESPIRATORY FAILURE Physical Exam Vital Signs: Temp Pulse Resp BP Pulse Ox 97.5 F 65 16 152/63 H 100 01/21/19 11:42 01/21/19 11:42 01/21/19 11:42 01/21/19 11:42 01/21/19 11:42 Intake & Output 01/20/19 01/21/19 01/22/19 06:59 06:59 06:59 Intake Total 500 590 Output Total 1994 9627 Balance -1495 -2098 Weight 298 lb 8.094 oz 300 lb 4.313 oz General appearance: PRESENT: no acute distress, well-developed, well-nourished Head exam: PRESENT: atraumatic, normocephalic Eye exam: PRESENT: conjunctiva pink, EOMI, PERRLA. ABSENT: scleral icterus Ear exam: PRESENT: normal external ear exam Mouth exam: PRESENT: moist, tongue midline Neck exam: ABSENT: carotid bruit, JVD, lymphadenopathy, thyromegaly Respiratory exam: PRESENT: clear to auscultation emperatriz. ABSENT: rales, rhonchi, wheezes Cardiovascular exam: PRESENT: RRR. ABSENT: diastolic murmur, rubs, systolic murmur GI/Abdominal exam: PRESENT: normal bowel sounds, soft. ABSENT: distended, guarding, mass, organolmegaly, rebound, tenderness Rectal exam: PRESENT: deferred Extremities exam: PRESENT: +1 edema Neurological exam: PRESENT: alert, awake, oriented to person, oriented to place, oriented to time, oriented to situation, CN II-XII grossly intact. ABSENT: motor sensory deficit Results Laboratory Results: 01/20/19 04:04 01/20/19 04:04 01/17/19 01/17/19 10:40 10:40 Creatine Kinase 48 CK-MB (CK-2) < 0.22 Troponin I 0.043 NT-Pro-B Natriuret Pep 1110 H Impressions: Chest X-Ray 01/18/19 06:00 IMPRESSION: No pneumonia or edema. Assessment & Plan - Diagnosis (1) Acute on chronic respiratory failure with hypoxia and hypercapnia Is this a current diagnosis for this admission?: Yes Plan: Patient has long standing GUDELIA and COPD. Her acute respiratory failure is likely multifactorial in nature. There is a question if she was kept on CPAP during the night, pain medications likely also contributed to her hypercapnia. Her chest x-ray on admission did show mild pulmonary prominence with no overt signs of congestion. 01/18: As discussed with pulmonology, she will be switched to AVAP mode. Will recheck an ABG thereafter. No opiates for now. Caution with pain medications with her poor renal functions. 01/19: Her PCO2 has improved and remained stable after she was switched to AVAPS mode. She is more awake and alert today. She is oriented x 4. She will be downgraded from ICU. 01/21: Patient continues to do well on AVAPS. She is awaiting SNF/rehab placement. No opiates or other sedating medication on discharge. (2) COPD (chronic obstructive pulmonary disease) Qualifiers: COPD type: unspecified COPD Qualified Code(s): J44.9 - Chronic obstructive pulmonary disease, unspecified Is this a current diagnosis for this admission?: Yes Plan: She was started on solumedrol 40 mg q8 on admission. Decrease to 40 mg daily. Continue breathing treatments prn. 01/19: Switched solumedrol to prednisone. 01/21: Reduce prednisone to 20 mg daily. (3) Systolic CHF, acute on chronic Is this a current diagnosis for this admission?: Yes Plan: Started on IV Lasix 40 mg q12. Switch back to home PO Lasix regimen today. Recent echo was read having a low normal EF and grade 2 DD. 01/19: Continue oral Lasix 80 mg bid. 01/21: On home dose of Lasix. (4) Chronic renal disease, stage IV Is this a current diagnosis for this admission?: Yes Plan: Creatinine appear to be at baseline. Nephrology has seen patient as well. Avoid nephrotoxic agents. 01/21: Decrease Lasix to 40 mg bid if creatinine continues to trend up. Repeat BMP today. (5) Hypothyroidism (acquired) Is this a current diagnosis for this admission?: Yes Plan: Resumed synthroid. TSH within normal limit. (6) Diabetes Qualifiers: Diabetes mellitus type: type 1 Diabetes mellitus complication status: without complication Qualified Code(s): E10.9 - Type 1 diabetes mellitus without complications Is this a current diagnosis for this admission?: Yes Plan: Resumed Lantus. Continue sliding scale. 01/20: Sugars still running in the 400s. Steroids contributing to hyperglycemia. Increase Lantus to 50 u bid. 01/21: Sugars in the 300s. Lantus incrased to 50 u bid last evening. Decrease prednisone to 20 mg daily. (7) Hyperkalemia Is this a current diagnosis for this admission?: Yes Plan: Started on Patiromer by nephrology. 01/21: Resolved. - Time Time Spent with patient: 25-34 minutes
[2019-01-21 14:06] LABS: HEMATOCRIT 32.8 % (36.0-47.0); HEMOGLOBIN 11.1 g/dL (12.0-15.5); MEAN CORPUSCULAR HEMOGLOBIN 30.9 pg (27.0-33.4); MEAN CORPUSCULAR HGB CONC 33.9 g/dL (32.0-36.0); MEAN CORPUSCULAR VOLUME 91 fl (80-97); PLATELET COUNT 211 10^3/uL (150-450); RED CELL DISTRIBUTION WIDTH 14.2 % (11.5-14.0); WHITE BLOOD COUNT 10.5 10^3/uL (4.0-10.5)
[2019-01-21 14:20] LABS: ABSOLUTE LYMPHOCYTES# (MANUAL) 1.9 10^3/uL (0.5-4.7); ABSOLUTE MONOCYTES # (MANUAL) 0.4 10^3/uL (0.1-1.4); ABSOLUTE NEUTROPHILS# (MANUAL) 8.2 10^3/uL (1.7-8.2); BASOPHILS % (MANUAL) 0 % (0-2); EOSINOPHILS % (MANUAL) 0 % (0-6); LYMPHOCYTES % (MANUAL) 18 % (13-45); MONOCYTES % (MANUAL) 4 % (3-13); SEGMENTED NEUTROPHILS % (MAN) 78 % (42-78); TOTAL CELLS COUNTED 100
[2019-01-21 14:21] LABS: TOXIC GRANULATION SLIGHT
[2019-01-21 14:22] LABS: ANISOCYTOSIS SLIGHT; PLATELET COMMENT ADEQUATE; PLATELET LARGE PRESENT; POLYCHROMASIA 1+
[2019-01-21 14:24] LABS: ANION GAP 11 (5-19); BLOOD UREA NITROGEN 86 mg/dL (7-20); CALCIUM 11.4 mg/dL (8.4-10.2); CARBON DIOXIDE 29 mmol/L (22-30); CHLORIDE 95 mmol/L (98-107); GLUCOSE 349 mg/dL (75-110); POTASSIUM 4.6 mmol/L (3.6-5.0); SODIUM 134.7 mmol/L (137-145)
[2019-01-21] MEDS: FUROSEMIDE 40 MG TABLET PO SCH (17:25)
[2019-01-21] MEDS: PATIROMER 8.4 GM SUSP PACKET PO SCH (17:36)
[2019-01-22] MEDS: LEVALBUTEROL HCL NEB 0.63 MG/3 ML AMPUL NEB SCH ×6 (01:24→19:49)
[2019-01-22] MEDS: LEVOTHYROXINE SODIUM 0.088 MG TABLET PO SCH (05:57)
[2019-01-22] MEDS: HEPARIN SOD (PORCINE) 5,000 UNIT/ML 1 ML SYRINGE SUBCUT SCH ×3 (05:57→22:11)
[2019-01-22] MEDS: AMLODIPINE BESYLATE 5 MG TABLET PO SCH (10:21)
[2019-01-22] MEDS: FAMOTIDINE 20 MG TABLET PO SCH ×2 (10:21→22:11)
[2019-01-22] MEDS: CARVEDILOL 12.5 MG TABLET PO SCH ×2 (10:21→22:10)
[2019-01-22] MEDS: FUROSEMIDE 40 MG TABLET PO SCH ×2 (10:22→17:06)
[2019-01-22] MEDS: LISINOPRIL 10 MG TABLET PO SCH (10:22)
[2019-01-22] MEDS: SENNOSIDES/DOCUSATE 8.6-50 MG 1 EACH TABLET PO SCH (10:23)
[2019-01-22] MEDS: ASPIRIN 81 MG TABLET, ENT COATED PO SCH (10:23)
[2019-01-22] MEDS: PREDNISONE 20 MG TABLET PO SCH (10:23)
[2019-01-22] MEDS: INSULIN LISPRO 100 UNIT/ML 3 ML VIAL SUBCUT SCH ×4 (10:23→22:10)
[2019-01-22] MEDS: INSULIN GLARGINE,HUM.REC.ANLOG 300 UNIT/3 ML INSULN.PEN SUBCUT SCH ×2 (10:24→17:53)
[2019-01-22] MEDS: LEVOFLOXACIN 250 MG/D5W RTU 250 MG/50 ML RTUPB IV SCH (10:26)
[2019-01-22] MEDS: TIOTROPIUM BROMIDE DPI 5 CAP/KIT (18 MCG/CAP) IH SCH (10:26)
--- NOTE | 2019-01-22 16:01 | PDOC PROGRESS REPORT ---
Subjective Progress Note for:: 01/22/19 Reason For Visit: Patient seen today in the hospital. She is doing lately well. Shortness of breath on exertion is improving. No complaints of any chest pain, fever or chills. Labs and medications were reviewed. Physical Exam Vital Signs: Temp Pulse Resp BP Pulse Ox 98.6 F 58 L 20 108/71 100 01/22/19 12:20 01/22/19 12:20 01/22/19 12:20 01/22/19 12:20 01/22/19 12:20 Intake & Output 01/21/19 01/22/19 01/23/19 06:59 06:59 06:59 Intake Total 590 1081 Output Total 4555 3450 Balance -2746 -3354 Weight 136.2 kg 136.2 kg General appearance: PRESENT: no acute distress Respiratory exam: PRESENT: clear to auscultation emperatriz, decreased breath sounds. ABSENT: crackles Cardiovascular exam: PRESENT: +S1, +S2, systolic murmur GI/Abdominal exam: PRESENT: normal bowel sounds, soft. ABSENT: organomegaly, tenderness Extremities exam: ABSENT: pedal edema Neurological exam: PRESENT: alert, awake, oriented to person, oriented to place Results Laboratory Results: 01/21/19 13:25 01/21/19 13:25 01/17/19 11:06 Blood Blood Culture - Final NO GROWTH IN 5 DAYS 01/17/19 10:40 Blood Blood Culture - Final NO GROWTH IN 5 DAYS 01/17/19 01/17/19 10:40 10:40 Creatine Kinase 48 CK-MB (CK-2) < 0.22 Troponin I 0.043 NT-Pro-B Natriuret Pep 1110 H Impressions: Chest X-Ray 01/18/19 06:00 IMPRESSION: No pneumonia or edema. Assessment & Plan - Diagnosis (1) Acute encephalopathy Is this a current diagnosis for this admission?: Yes Plan: Much improved at the moment. She feels like she is back to her baseline.. (2) Acute kidney injury superimposed on chronic kidney disease Plan: She is acute on chronic kidney disease. Stable renal numbers. (3) Acute on chronic respiratory failure with hypoxemia Is this a current diagnosis for this admission?: Yes Plan: Currently on BiPAP. History of sleep apnea on CPAP. (4) COPD (chronic obstructive pulmonary disease) Qualifiers: COPD type: unspecified COPD Qualified Code(s): J44.9 - Chronic obstructive pulmonary disease, unspecified Is this a current diagnosis for this admission?: Yes Plan: Presently stable. (5) Chronic renal disease, stage IV Is this a current diagnosis for this admission?: Yes Plan: She is got CKD stage IV with a base creatinine of 2-2.5. She is currently nonoliguric and renal functions are stable. No indications for renal replacements. (6) Hypertension Qualifiers: Hypertension type: essential hypertension Qualified Code(s): I10 - Essential (primary) hypertension Is this a current diagnosis for this admission?: Yes Plan: Relatively stable. Monitor. (7) Obstructive sleep apnea Is this a current diagnosis for this admission?: Yes Plan: Apparently compliant with CPAP at retirement. (8) Type 2 diabetes mellitus Is this a current diagnosis for this admission?: Yes Plan: Complicated. Advised tight control for obvious reasons. (9) Morbid obesity with BMI of 45.0-49.9, adult Plan: Status quo. (10) Hyperkalemia Is this a current diagnosis for this admission?: Yes Plan: She has been started on Veltassa. Monitor.
--- NOTE | 2019-01-22 16:38 | PDOC PROGRESS REPORT ---
Subjective Progress Note for:: 01/22/19 Subjective:: This is a 68 year old female patient with multiple comorbidities including morbid obesity, chronically infected diabetic foot ulcer, stage IV CKD, COPD, GUDELIA on CPAP, hypertension and type 2 diabetes mellitus brought from residential due to hypoxia and altered mental status. She reportedly was found lethargic yesterday 01/17/19 morning at the residential and was noted to be hypoxic and unresponsive. Reportedly, a CPR was done by nursing staff before EMS came and noted that she had good pulses. In the ER, she was noted to be hypercapnic with initial PCO2 of 79 on VBG. She was placed on BIPAP and ABG on BIPAP showed a PCO of 58, PO2 of 133 and sats of 98%. Appears she had clear breath sounds on presentation. Noted her initial chest x-ray showed mild vascular prominence. Reviewed notes. Patient was recently admitted on 01/12/19 for due to increasing drainage on her chronic right foot ulcer. She underwent toe amputation by surgery on 01/13/10. She was subsequently discharged on 01/16. Called [facility] and spoke with patient's nurse, Adela who took over her care yesterday morning. 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 She did receive her pain meds at night. Patient is supposed to be on CPAP at night but she is not sure if she was placed on CPAP during the night. She says that when she did her first assessment at 9 am, she noted that patient appeared very lethargic and was not responsive. She says her O2 sats then was 50%, BP was 99/45 and HR was 100. She denies that a CPR was done as patient was a DNR/DNI at [facility]. Rediscussed with patient and son/DPOA and patient is a FULL CODE. Upon encounter this morning, she appears more awake and alert. She is oriented to person, place and time but is not able to remember what happened at the residential. She denies chest pain or SOB. Repeat ABG shows worsening of hypercapnia even on BIPAP. Discussed with pulmonology, she will be switched to AVAPS mode. Repeat chest x-ray this morning is unremarkable. 01/19: Her PCO2 has improved and remained stable after she was switched to AVAPS mode. She is more awake and alert today. She is oriented x 4. She will be downgraded from ICU. 01/20: She continues to do well on AVAPS. Denies SOB or chest pain. Anticipating discharge in 24 hrs pending SNF/rehab placement availability. 01/21: No acute event overnight. Patient continues to do well on AVAPS. Sugars running in the 300s. Insulin adjusted. Reduce prednisone to 20 mg daily today. She is awaiting SNF/rehab placement. 01/22: will try patient on BiPAP as she will have more options at discharge if able to tolerate BiPAP. Otherwise doing great today Reason For Visit: ACUTE RESPIRATORY FAILURE Physical Exam Vital Signs: Temp Pulse Resp BP Pulse Ox 98.6 F 59 L 20 108/71 100 01/22/19 12:20 01/22/19 14:00 01/22/19 12:20 01/22/19 12:20 01/22/19 12:20 Intake & Output 01/21/19 01/22/19 01/23/19 06:59 06:59 06:59 Intake Total 590 1081 Output Total 4555 3450 Balance -3965 -3469 Weight 136.2 kg 136.2 kg General appearance: PRESENT: no acute distress, cooperative, morbidly obese Eye exam: ABSENT: scleral icterus Mouth exam: PRESENT: moist, neck supple Neck exam: ABSENT: full ROM, JVD, lymphadenopathy, tenderness, thyromegaly, tracheal deviation Respiratory exam: PRESENT: rhonchi - minor at bases on left. ABSENT: accessory muscle use GI/Abdominal exam: PRESENT: normal bowel sounds, soft. ABSENT: ascites, tenderness Extremities exam: PRESENT: pedal edema. ABSENT: joint swelling Musculoskeletal exam: ABSENT: tenderness Neurological exam: PRESENT: alert, oriented to person, oriented to place, oriented to situation Psychiatric exam: ABSENT: agitated, anxious Results Laboratory Results: 01/21/19 13:25 01/21/19 13:25 01/17/19 11:06 Blood Blood Culture - Final NO GROWTH IN 5 DAYS 01/17/19 10:40 Blood Blood Culture - Final NO GROWTH IN 5 DAYS 01/17/19 01/17/19 10:40 10:40 Creatine Kinase 48 CK-MB (CK-2) < 0.22 Troponin I 0.043 NT-Pro-B Natriuret Pep 1110 H Impressions: Chest X-Ray 01/18/19 06:00 IMPRESSION: No pneumonia or edema. Assessment and Plan - Diagnosis (1) Acute encephalopathy Is this a current diagnosis for this admission?: Yes Plan: 01/22/19 16:33 Patient appears to be closer to her baseline. Has multiple reasons during this admission to contribute to her acute encephalopathy. Can you to monitor. (2) Acute on chronic respiratory failure with hypoxia and hypercapnia Is this a current diagnosis for this admission?: Yes Plan: 01/22/19 16:34 Has been doing well on AVAPs. We will attempt to see how she does on BiPAP tonight. We will have greater choices of facilities at discharge if she is able to tolerate BiPAP. (3) CAD (coronary artery disease) Qualifiers: Coronary Disease-Associated Artery/Lesion type: unspecified vessel or lesion type [place] vs. transplanted heart: [place] heart Associated angina: without angina Qualified Code(s): I25.10 - Atherosclerotic heart disease of [place] coronary artery without angina pectoris Is this a current diagnosis for this admission?: Yes Plan: 01/22/19 16:35 Continue beta-ml and aspirin. Continue to monitor. (4) COPD (chronic obstructive pulmonary disease) Qualifiers: COPD type: unspecified COPD Qualified Code(s): J44.9 - Chronic obstructive pulmonary disease, unspecified Is this a current diagnosis for this admission?: Yes Plan: 01/22/19 16:35 Needs to complete her prednisone dose. Continue scheduled nebs. Continue home medications. (5) Chronic atrial fibrillation Is this a current diagnosis for this admission?: Yes Plan: 01/22/19 16:35 Currently rate controlled. Continue beta-ml aspirin. And anticoagulation. (6) Diabetes Qualifiers: Diabetes mellitus type: type 1 Diabetes mellitus complication status: without complication Qualified Code(s): E10.9 - Type 1 diabetes mellitus without complications Is this a current diagnosis for this admission?: Yes Plan: 01/22/19 16:36 Fingerstick blood sugars have been fairly well controlled. Continue sliding scale and regular insulin. (7) Hypertension Qualifiers: Hypertension type: essential hypertension Qualified Code(s): I10 - Essential (primary) hypertension Is this a current diagnosis for this admission?: Yes Plan: 01/22/19 16:36 Blood pressure has been well controlled. Continue home medications. (8) Hypothyroidism (acquired) Is this a current diagnosis for this admission?: Yes Plan: 01/22/19 16:37 Replacement therapy. (9) Obstructive sleep apnea Is this a current diagnosis for this admission?: Yes Plan: 01/22/19 16:38 Fairly significant obstructive sleep apnea. We will see how the patient does with BiPAP tonight. - Time Time Spent with patient: 25-34 minutes Anticipated discharge: SNF Within: within 24 hours
[2019-01-22] MEDS: TRAMADOL HCL 50 MG TABLET PO PRN (17:05)
[2019-01-22] MEDS: PATIROMER 8.4 GM SUSP PACKET PO SCH (17:19)
[2019-01-23] MEDS: LEVALBUTEROL HCL NEB 0.63 MG/3 ML AMPUL NEB SCH ×7 (00:15→23:46)
[2019-01-23] MEDS: LEVOTHYROXINE SODIUM 0.088 MG TABLET PO SCH (05:43)
[2019-01-23] MEDS: HEPARIN SOD (PORCINE) 5,000 UNIT/ML 1 ML SYRINGE SUBCUT SCH ×2 (05:43→14:06)
[2019-01-23] MEDS: INSULIN LISPRO 100 UNIT/ML 3 ML VIAL SUBCUT SCH ×3 (07:18→16:31)
[2019-01-23] MEDS: SENNOSIDES/DOCUSATE 8.6-50 MG 1 EACH TABLET PO SCH (09:42)
[2019-01-23] MEDS: CARVEDILOL 12.5 MG TABLET PO SCH (09:47)
[2019-01-23] MEDS: PREDNISONE 20 MG TABLET PO SCH (09:48)
[2019-01-23] MEDS: LISINOPRIL 10 MG TABLET PO SCH (09:48)
[2019-01-23] MEDS: FUROSEMIDE 40 MG TABLET PO SCH ×2 (09:48→17:35)
[2019-01-23] MEDS: FAMOTIDINE 20 MG TABLET PO SCH (09:48)
[2019-01-23] MEDS: INSULIN GLARGINE,HUM.REC.ANLOG 300 UNIT/3 ML INSULN.PEN SUBCUT SCH ×2 (09:49→17:35)
[2019-01-23] MEDS: AMLODIPINE BESYLATE 5 MG TABLET PO SCH (09:49)
[2019-01-23] MEDS: ASPIRIN 81 MG TABLET, ENT COATED PO SCH (09:49)
[2019-01-23] MEDS: LEVOFLOXACIN 250 MG/D5W RTU 250 MG/50 ML RTUPB IV SCH (09:50)
[2019-01-23] MEDS: TIOTROPIUM BROMIDE DPI 5 CAP/KIT (18 MCG/CAP) IH SCH (09:53)
[2019-01-23] MEDS: TRAMADOL HCL 50 MG TABLET PO PRN (10:02)
--- NOTE | 2019-01-23 15:11 | PDOC PROGRESS REPORT ---
Subjective Progress Note for:: 01/23/19 Subjective:: This is a 68 year old female patient with multiple comorbidities including morbid obesity, chronically infected diabetic foot ulcer, stage IV CKD, COPD, GUDELIA on CPAP, hypertension and type 2 diabetes mellitus brought from [facility] due to hypoxia and altered mental status. She reportedly was found lethargic yesterday 01/17/19 morning at the [facility] and was noted to be hypoxic and unresponsive. Reportedly, a CPR was done by nursing staff before EMS came and noted that she had good pulses. In the ER, she was noted to be hypercapnic with initial PCO2 of 79 on VBG. She was placed on BIPAP and ABG on BIPAP showed a PCO of 58, PO2 of 133 and sats of 98%. Appears she had clear breath sounds on presentation. Noted her initial chest x-ray showed mild vascular prominence. Reviewed notes. Patient was recently admitted on 01/12/19 for due to increasing drainage on her chronic right foot ulcer. She underwent toe amputation by surgery on 01/13/10. She was subsequently discharged on 01/16. Called [facility] and spoke with patient's nurse, Adela who took over her care yesterday morning. She says that per report from night RN, patient was "okay" during the night clerk. She did receive her pain meds at night. Patient is supposed to be on CPAP at night but she is not sure if she was placed on CPAP during the night. She says that when she did her first assessment at 9 am, she noted that patient appeared very lethargic and was not responsive. She says her O2 sats then was 50%, BP was 99/45 and HR was 100. She denies that a CPR was done as patient was a DNR/DNI at [facility]. Rediscussed with patient and son/DPOA and patient is a FULL CODE. Upon encounter this morning, she appears more awake and alert. She is oriented to person, place and time but is not able to remember what happened at the [facility]. She denies chest pain or SOB. Repeat ABG shows worsening of hypercapnia even on BIPAP. Discussed with pulmonology, she will be switched to AVAPS mode. Repeat chest x-ray this morning is unremarkable. 01/19: Her PCO2 has improved and remained stable after she was switched to AVAPS mode. She is more awake and alert today. She is oriented x 4. She will be downgraded from ICU. 01/20: She continues to do well on AVAPS. Denies SOB or chest pain. Anticipating discharge in 24 hrs pending SNF/rehab placement availability. 01/21: No acute event overnight. Patient continues to do well on AVAPS. Sugars running in the 300s. Insulin adjusted. Reduce prednisone to 20 mg daily today. She is awaiting SNF/rehab placement. 01/22: will try patient on BiPAP as she will have more options at discharge if able to tolerate BiPAP. Otherwise doing great today Reason For Visit: ACUTE RESPIRATORY FAILURE Physical Exam Vital Signs: Temp Pulse Resp BP Pulse Ox 98.6 F 65 16 112/46 L 95 01/23/19 12:00 01/23/19 12:33 01/23/19 12:33 01/23/19 12:00 01/23/19 12:33 Intake & Output 01/22/19 01/23/19 01/24/19 06:59 06:59 06:59 Intake Total 1081 260 50 Output Total 3450 1950 Balance -2369 -1690 50 Weight 136.2 kg 136.4 kg General appearance: PRESENT: no acute distress, cooperative Eye exam: ABSENT: scleral icterus Neck exam: PRESENT: full ROM. ABSENT: JVD, lymphadenopathy, tenderness, thyromegaly, tracheal deviation Respiratory exam: PRESENT: rhonchi, unlabored Cardiovascular exam: PRESENT: RRR Extremities exam: PRESENT: pedal edema Neurological exam: PRESENT: alert, oriented to person, oriented to place, oriented to time, oriented to situation Psychiatric exam: ABSENT: agitated, anxious Skin exam: PRESENT: dry, normal color, warm Results Laboratory Results: 01/21/19 13:25 01/21/19 13:25 01/17/19 11:06 Blood Blood Culture - Final NO GROWTH IN 5 DAYS 01/17/19 01/17/19 10:40 10:40 Creatine Kinase 48 CK-MB (CK-2) < 0.22 Troponin I 0.043 NT-Pro-B Natriuret Pep 1110 H Impressions: Chest X-Ray 01/18/19 06:00 IMPRESSION: No pneumonia or edema. Assessment and Plan - Diagnosis (1) Acute encephalopathy Is this a current diagnosis for this admission?: Yes Plan: 01/22/19 16:33 Patient appears to be closer to her baseline. Has multiple reasons during this admission to contribute to her acute encephalopathy. Continue to monitor. (2) Acute on chronic respiratory failure with hypoxia and hypercapnia Is this a current diagnosis for this admission?: Yes (3) CAD (coronary artery disease) Qualifiers: Coronary Disease-Associated Artery/Lesion type: unspecified vessel or lesion type [place] vs. transplanted heart: [place] heart Associated angina: without angina Qualified Code(s): I25.10 - Atherosclerotic heart disease of [place] coronary artery without angina pectoris Is this a current diagnosis for this admission?: Yes Plan: 01/22/19 16:35 Continue beta-ml and aspirin. Continue to monitor. (4) COPD (chronic obstructive pulmonary disease) Qualifiers: COPD type: unspecified COPD Qualified Code(s): J44.9 - Chronic obstructive pulmonary disease, unspecified Is this a current diagnosis for this admission?: Yes Plan: 01/22/19 16:35 Needs to complete her prednisone dose. Continue scheduled nebs. Continue home medications. (5) Chronic atrial fibrillation Is this a current diagnosis for this admission?: Yes Plan: 01/22/19 16:35 Currently rate controlled. Continue beta-ml aspirin. And anticoagulation. (6) Diabetes Qualifiers: Diabetes mellitus type: type 1 Diabetes mellitus complication status: without complication Qualified Code(s): E10.9 - Type 1 diabetes mellitus without complications Is this a current diagnosis for this admission?: Yes Plan: 01/22/19 16:36 Fingerstick blood sugars have been fairly well controlled. Continue sliding scale and regular insulin. (7) Hypertension Qualifiers: Hypertension type: essential hypertension Qualified Code(s): I10 - E ssential (primary) hypertension Is this a current diagnosis for this admission?: Yes Plan: 01/22/19 16:36 Blood pressure has been well controlled. Continue home medications. (8) Hypothyroidism (acquired) Is this a current diagnosis for this admission?: Yes Plan: 01/22/19 16:37 Replacement therapy. (9) Obstructive sleep apnea Is this a current diagnosis for this admission?: Yes Plan: 01/22/19 16:38 Fairly significant obstructive sleep apnea. Tolerated BiPAP well last night. We will continue to monitor closely. - Time Time Spent with patient: 35 or more minutes Medications reviewed and adjusted accordingly: Yes Anticipated discharge: SNF
[2019-01-23] MEDS: PATIROMER 8.4 GM SUSP PACKET PO SCH (16:31)
[2019-01-24] MEDS: INSULIN LISPRO 100 UNIT/ML 3 ML VIAL SUBCUT SCH ×5 (00:07→22:00)
[2019-01-24] MEDS: CARVEDILOL 12.5 MG TABLET PO SCH ×3 (00:14→22:09)
[2019-01-24] MEDS: FAMOTIDINE 20 MG TABLET PO SCH ×3 (00:14→22:08)
[2019-01-24] MEDS: HEPARIN SOD (PORCINE) 5,000 UNIT/ML 1 ML SYRINGE SUBCUT SCH ×4 (00:14→22:07)
[2019-01-24] MEDS: TRAMADOL HCL 50 MG TABLET PO PRN ×3 (00:21→22:07)
[2019-01-24] MEDS: LEVALBUTEROL HCL NEB 0.63 MG/3 ML AMPUL NEB SCH ×5 (04:05→20:55)
[2019-01-24] MEDS: LEVOTHYROXINE SODIUM 0.088 MG TABLET PO SCH (05:35)
[2019-01-24 06:30] LABS: ALANINE AMINOTRANSFERASE 29 U/L (9-52); ALBUMIN 3.3 g/dL (3.5-5.0); ALKALINE PHOSPHATASE 85 U/L (38-126); ANION GAP 9 (5-19); ASPARTATE AMINO TRANSFERASE 17 U/L (14-36); BILIRUBIN,DIRECT 0.2 mg/dL (0.0-0.4); BILIRUBIN,TOTAL 0.6 mg/dL (0.2-1.3); BLOOD UREA NITROGEN 96 mg/dL (7-20); CALCIUM 10.4 mg/dL (8.4-10.2); CARBON DIOXIDE 35 mmol/L (22-30); CHLORIDE 97 mmol/L (98-107); GLUCOSE 94 mg/dL (75-110); POTASSIUM 3.4 mmol/L (3.6-5.0); SODIUM 141.2 mmol/L (137-145); TOTAL PROTEIN 6.4 g/dL (6.3-8.2)
[2019-01-24 07:20] LABS: HEMATOCRIT 32.9 % (36.0-47.0); HEMOGLOBIN 10.9 g/dL (12.0-15.5); MEAN CORPUSCULAR HEMOGLOBIN 30.9 pg (27.0-33.4); MEAN CORPUSCULAR HGB CONC 33.2 g/dL (32.0-36.0); MEAN CORPUSCULAR VOLUME 93 fl (80-97); PLATELET COUNT 201 10^3/uL (150-450); RED BLOOD COUNT 3.54 10^6/uL (3.72-5.28); RED CELL DISTRIBUTION WIDTH 14.8 % (11.5-14.0); WHITE BLOOD COUNT 10.4 10^3/uL (4.0-10.5)
[2019-01-24] MEDS: ACETAMINOPHEN 325 MG TABLET PO PRN ×2 (07:29→13:54)
[2019-01-24] MEDS: LEVOFLOXACIN 250 MG/D5W RTU 250 MG/50 ML RTUPB IV SCH ×2 (10:52→11:11)
[2019-01-24] MEDS: ASPIRIN 81 MG TABLET, ENT COATED PO SCH (10:54)
[2019-01-24] MEDS: PREDNISONE 20 MG TABLET PO SCH (10:54)
[2019-01-24] MEDS: TIOTROPIUM BROMIDE DPI 5 CAP/KIT (18 MCG/CAP) IH SCH (10:55)
[2019-01-24] MEDS: FUROSEMIDE 40 MG TABLET PO SCH ×2 (10:59→17:42)
[2019-01-24] MEDS: LISINOPRIL 10 MG TABLET PO SCH (10:59)
[2019-01-24] MEDS: INSULIN GLARGINE,HUM.REC.ANLOG 300 UNIT/3 ML INSULN.PEN SUBCUT SCH (11:00)
--- NOTE | 2019-01-24 11:48 | PDOC PROGRESS REPORT ---
Subjective Progress Note for:: 01/24/19 Reason For Visit: Patient seen today. She is complaining of mid umbilical abdominal pains /10 since yesterday. Some nausea without vomiting. Unable to have any intake for that reason. Had a bowel movement yesterday. No complaints of any fever or chills. Being evaluated by hospitalist. Labs and medications were reviewed. Her blood pressure has dropped as of this morning. She denies any history of chest pains or shortness of breath. Physical Exam Vital Signs: Temp Pulse Resp BP Pulse Ox 98.5 F 55 L 14 93/50 L 100 01/24/19 07:37 01/24/19 08:10 01/24/19 08:10 01/24/19 07:37 01/24/19 08:10 Intake & Output 01/23/19 01/24/19 01/25/19 06:59 06:59 06:59 Intake Total 260 661 Output Total 1950 1320 Balance -1690 -659 Weight 136.4 kg 141 kg General appearance: PRESENT: mild distress Respiratory exam: PRESENT: clear to auscultation emperatriz. ABSENT: crackles Cardiovascular exam: PRESENT: +S1, +S2, systolic murmur GI/Abdominal exam: PRESENT: normal bowel sounds, soft, tenderness - Around the epigastric region.. ABSENT: firm, guarding, mass, organomegaly Extremities exam: PRESENT: pedal edema Neurological exam: PRESENT: alert, awake, oriented to person, oriented to place Psychiatric exam: PRESENT: anxious. ABSENT: agitated Results Laboratory Results: 01/24/19 05:42 01/24/19 05:42 01/24/19 01/24/19 05:42 05:42 WBC 10.4 RBC 3.54 L Hgb 10.9 L Hct 32.9 L MCV 93 MCH 30.9 MCHC 33.2 RDW 14.8 H Plt Count 201 Sodium 141.2 Potassium 3.4 L Chloride 97 L Carbon Dioxide 35 H Anion Gap 9 BUN 96 H Creatinine 2.41 H Est GFR ( Amer) 24 L Est GFR (Non-Af Amer) 20 L Glucose 94 Calcium 10.4 H Total Bilirubin 0.6 AST 17 ALT 29 Alkaline Phosphatase 85 Total Protein 6.4 Albumin 3.3 L 01/17/19 01/17/19 10:40 10:40 Creatine Kinase 48 CK-MB (CK-2) < 0.22 Troponin I 0.043 NT-Pro-B Natriuret Pep 1110 H Impressions: Chest X-Ray 01/18/19 06:00 IMPRESSION: No pneumonia or edema. Assessment & Plan - Diagnosis (1) Acute encephalopathy Is this a current diagnosis for this admission?: Yes Plan: Resolved. Apparently back to baseline. (2) Acute kidney injury superimposed on chronic kidney disease Plan: Nonoliguric. She is acute on chronic kidney disease. Stable renal numbers.Monitor. (3) Acute on chronic respiratory failure with hypoxemia Is this a current diagnosis for this admission?: Yes Plan: Resolved and currently stable. (4) Chronic renal disease, stage IV Is this a current diagnosis for this admission?: Yes Plan: She is got CKD stage IV with a base creatinine of 2-2.5. She is currently nonoliguric and renal functions are stable. No indications for renal replacements. (5) Hypertension Qualifiers: Hypertension type: essential hypertension Qualified Code(s): I10 - Essential (primary) hypertension Is this a current diagnosis for this admission?: Yes Plan: Relatively stable. However as of this morning her systolics dropped into the 90s. I am going to cut down the amlodipine to 2.5 after holding it for today. We will have to further down titrate her antihypertensives based on her present symptoms and vital signs. Monitor. (6) Obstructive sleep apnea Is this a current diagnosis for this admission?: Yes Plan: Apparently compliant with CPAP at shelter. (7) Type 2 diabetes mellitus Is this a current diagnosis for this admission?: Yes Plan: Complicated. Advised tight control for obvious reasons. (8) Morbid obesity with BMI of 45.0-49.9, adult Plan: Status quo. (9) Hyperkalemia Is this a current diagnosis for this admission?: Yes Plan: It has resolved after she has been started on Veltassa. However currently her potassium today is 3.4 and therefore will discontinue the Veltassa. Monitor. (10) Abdominal pain Qualifiers: Abdominal location: lower abdomen, unspecified Qualified Code(s): R10.30 - Lower abdominal pain, unspecified Plan: As per hospitalist.
--- NOTE | 2019-01-24 17:22 | PDOC PROGRESS REPORT ---
Subjective Progress Note for:: 01/24/19 Subjective:: No adverse events overnight. When I came into the room she was lying in bed comfortably with her eyes closed, but when I introduced myself she started to grimace and roll her head side to side and my own talk about how she was in pain all over. Her blood pressure was a little bit low this morning with a systolic in the 90s but she was asymptomatic. Reason For Visit: ACUTE RESPIRATORY FAILURE Physical Exam Vital Signs: Temp Pulse Resp BP Pulse Ox 97.3 F 63 12 110/58 L 97 01/24/19 15:35 01/24/19 15:35 01/24/19 15:35 01/24/19 15:43 01/24/19 15:35 Intake & Output 01/23/19 01/24/19 01/25/19 06:59 06:59 06:59 Intake Total 260 661 Output Total 1950 1320 Balance -1690 -659 Weight 136.4 kg 141 kg General appearance: PRESENT: no acute distress, cooperative Eye exam: ABSENT: scleral icterus Neck exam: PRESENT: full ROM. ABSENT: JVD, lymphadenopathy, tenderness, thyromegaly, tracheal deviation Respiratory exam: PRESENT: Clear to auscultation bilaterally, unlabored Cardiovascular exam: PRESENT: RRR Abdominal exam: Soft, obese, nontender, nondistended, normal bowel sounds, no guarding, no rebound Extremities exam: PRESENT: pedal edema Neurological exam: PRESENT: alert, oriented to person, oriented to place, oriented to time, oriented to situation Psychiatric exam: ABSENT: agitated, anxious Skin exam: PRESENT: dry, normal color, warm Results Laboratory Results: 01/24/19 05:42 01/24/19 05:42 01/24/19 01/24/19 05:42 05:42 WBC 10.4 RBC 3.54 L Hgb 10.9 L Hct 32.9 L MCV 93 MCH 30.9 MCHC 33.2 RDW 14.8 H Plt Count 201 Sodium 141.2 Potassium 3.4 L Chloride 97 L Carbon Dioxide 35 H Anion Gap 9 BUN 96 H Creatinine 2.41 H Est GFR ( Amer) 24 L Est GFR (Non-Af Amer) 20 L Glucose 94 Calcium 10.4 H Total Bilirubin 0.6 AST 17 ALT 29 Alkaline Phosphatase 85 Total Protein 6.4 Albumin 3.3 L 01/17/19 01/17/19 10:40 10:40 Creatine Kinase 48 CK-MB (CK-2) < 0.22 Troponin I 0.043 NT-Pro-B Natriuret Pep 1110 H Impressions: Chest X-Ray 01/18/19 06:00 IMPRESSION: No pneumonia or edema. Assessment and Plan - Diagnosis (1) Acute on chronic respiratory failure with hypoxia and hypercapnia Is this a current diagnosis for this admission?: Yes Plan: Resolved. Patient is back to baseline. We are trying to get her into a facility where she can have BiPAP. (2) Hyperkalemia Is this a current diagnosis for this admission?: Yes Plan: Resolved (3) Morbid obesity with BMI of 45.0-49.9, adult Is this a current diagnosis for this admission?: Yes Plan: Strongly encouraged lifestyle modification (4) Acute kidney injury superimposed on chronic kidney disease Is this a current diagnosis for this admission?: Yes Plan: Resolved. Creatinine back to baseline. Nephrology has been following. - Time Time Spent with patient: 25-34 minutes
[2019-01-24] MEDS: INSULIN GLARGINE,HUM.REC.ANLOG 1,000 UNIT/10 ML VIAL SUBCUT SCH (17:23)
[2019-01-25] MEDS: LEVALBUTEROL HCL NEB 0.63 MG/3 ML AMPUL NEB SCH ×6 (00:15→20:11)
[2019-01-25] MEDS: LEVOTHYROXINE SODIUM 0.088 MG TABLET PO SCH (05:50)
[2019-01-25] MEDS: HEPARIN SOD (PORCINE) 5,000 UNIT/ML 1 ML SYRINGE SUBCUT SCH ×3 (05:50→22:33)
[2019-01-25] MEDS: TRAMADOL HCL 50 MG TABLET PO PRN ×2 (05:51→18:28)
[2019-01-25 07:29] LABS: ANION GAP 11 (5-19); BLOOD UREA NITROGEN 94 mg/dL (7-20); CALCIUM 10.3 mg/dL (8.4-10.2); CARBON DIOXIDE 31 mmol/L (22-30); CHLORIDE 97 mmol/L (98-107); GLUCOSE 166 mg/dL (75-110); POTASSIUM 3.8 mmol/L (3.6-5.0); SODIUM 139.2 mmol/L (137-145)
[2019-01-25] MEDS: INSULIN LISPRO 100 UNIT/ML 3 ML VIAL SUBCUT SCH ×4 (08:42→22:33)
[2019-01-25] MEDS: INSULIN GLARGINE,HUM.REC.ANLOG 1,000 UNIT/10 ML VIAL SUBCUT SCH ×2 (09:58→17:51)
[2019-01-25] MEDS: TIOTROPIUM BROMIDE DPI 5 CAP/KIT (18 MCG/CAP) IH SCH (10:01)
[2019-01-25] MEDS: ASPIRIN 81 MG TABLET, ENT COATED PO SCH (10:02)
[2019-01-25] MEDS: CARVEDILOL 12.5 MG TABLET PO SCH ×2 (10:02→22:23)
[2019-01-25] MEDS: FAMOTIDINE 20 MG TABLET PO SCH ×2 (10:02→22:33)
[2019-01-25] MEDS: FUROSEMIDE 40 MG TABLET PO SCH ×2 (10:02→17:51)
[2019-01-25] MEDS: PREDNISONE 20 MG TABLET PO SCH (10:02)
[2019-01-25] MEDS: AMLODIPINE BESYLATE 5 MG TABLET PO SCH (10:08)
[2019-01-25] MEDS: LISINOPRIL 10 MG TABLET PO SCH (10:08)
[2019-01-25] MEDS ORDERED: ONDANSETRON 4 MG TAB.RAPDIS PO PRN (14:46)
--- NOTE | 2019-01-25 17:00 | PDOC PROGRESS REPORT ---
Subjective Progress Note for:: 01/25/19 Subjective:: No adverse events overnight. No new complaints. Vital signs been stable. She slept well overnight was still little sleepy this morning and so she was taken a nap whenever I came to see her. She was easy to awaken and she interacted well with me. Reason For Visit: ACUTE RESPIRATORY FAILURE Physical Exam Vital Signs: Temp Pulse Resp BP Pulse Ox 98.2 F 78 15 121/44 L 98 01/25/19 15:09 01/25/19 15:47 01/25/19 15:47 01/25/19 15:09 01/25/19 15:47 Intake & Output 01/24/19 01/25/19 01/26/19 06:59 06:59 06:59 Intake Total 661 472 Output Total 1320 1295 Balance -659 -823 Weight 141 kg 145.2 kg General appearance: PRESENT: no acute distress, cooperative Eye exam: ABSENT: scleral icterus Neck exam: PRESENT: full ROM. ABSENT: JVD, lymphadenopathy, tenderness, thyromegaly, tracheal deviation Respiratory exam: PRESENT: Clear to auscultation bilaterally, unlabored Cardiovascular exam: PRESENT: RRR Abdominal exam: Soft, obese, nontender, nondistended, normal bowel sounds, no guarding, no rebound Extremities exam: PRESENT: pedal edema Neurological exam: PRESENT: alert, oriented to person, oriented to place, oriented to time, oriented to situation Psychiatric exam: ABSENT: agitated, anxious Skin exam: PRESENT: dry, normal color, warm Results Laboratory Results: 01/24/19 05:42 01/25/19 06:13 01/25/19 06:13 Sodium 139.2 Potassium 3.8 Chloride 97 L Carbon Dioxide 31 H Anion Gap 11 BUN 94 H Creatinine 2.22 H Est GFR ( Amer) 26 L Est GFR (Non-Af Amer) 22 L Glucose 166 H Calcium 10.3 H 01/17/19 01/17/19 10:40 10:40 Creatine Kinase 48 CK-MB (CK-2) < 0.22 Troponin I 0.043 NT-Pro-B Natriuret Pep 1110 H Impressions: Chest X-Ray 01/18/19 06:00 IMPRESSION: No pneumonia or edema. Assessment and Plan - Diagnosis (1) Acute on chronic respiratory failure with hypoxia and hypercapnia Is this a current diagnosis for this admission?: Yes Plan: Resolved. Patient is back to baseline. We are trying to get her into a facility where she can have BiPAP. Apparently there are some but offers but we could not get a call back from her family to decide which place she wanted to go (2) Hyperkalemia Is this a current diagnosis for this admission?: Yes Plan: Resolved (3) Morbid obesity with BMI of 45.0-49.9, adult Is this a current diagnosis for this admission?: Yes Plan: Strongly encouraged lifestyle modification (4) Acute kidney injury superimposed on chronic kidney disease Is this a current diagnosis for this admission?: Yes Plan: Resolved. Creatinine back to baseline. Nephrology has been following. - Time Time Spent with patient: 25-34 minutes
[2019-01-26] MEDS: LEVALBUTEROL HCL NEB 0.63 MG/3 ML AMPUL NEB SCH ×3 (00:09→08:15)
[2019-01-26] MEDS ORDERED: VANCOMYCIN HCL INJ 500 MG VIAL ONE (03:38)
[2019-01-26] MEDS: VANCOMYCIN HCL INJ 500 MG VIAL PO SCH ×4 (05:27→23:46)
[2019-01-26] MEDS: HEPARIN SOD (PORCINE) 5,000 UNIT/ML 1 ML SYRINGE SUBCUT SCH ×3 (05:27→22:09)
[2019-01-26] MEDS: LEVOTHYROXINE SODIUM 0.088 MG TABLET PO SCH (05:28)
[2019-01-26] MEDS: ACETAMINOPHEN 325 MG TABLET PO PRN (07:52)
[2019-01-26] MEDS ORDERED: LEVALBUTEROL HCL NEB 0.63 MG/3 ML AMPUL NEB PRN (08:37)
[2019-01-26 08:53] LABS: ANION GAP 8 (5-19); BLOOD UREA NITROGEN 84 mg/dL (7-20); CALCIUM 10.4 mg/dL (8.4-10.2); CARBON DIOXIDE 32 mmol/L (22-30); CHLORIDE 98 mmol/L (98-107); GLUCOSE 210 mg/dL (75-110); POTASSIUM 3.4 mmol/L (3.6-5.0); SODIUM 138.1 mmol/L (137-145)
[2019-01-26] MEDS: INSULIN LISPRO 100 UNIT/ML 3 ML VIAL SUBCUT SCH ×4 (08:58→22:08)
[2019-01-26] MEDS: AMLODIPINE BESYLATE 5 MG TABLET PO SCH (11:14)
[2019-01-26] MEDS: ASPIRIN 81 MG TABLET, ENT COATED PO SCH (11:14)
[2019-01-26] MEDS: LISINOPRIL 10 MG TABLET PO SCH (11:15)
[2019-01-26] MEDS: PREDNISONE 20 MG TABLET PO SCH (11:15)
[2019-01-26] MEDS: FUROSEMIDE 40 MG TABLET PO SCH ×2 (11:16→17:36)
[2019-01-26] MEDS: CARVEDILOL 12.5 MG TABLET PO SCH ×2 (11:16→22:10)
[2019-01-26] MEDS: FAMOTIDINE 20 MG TABLET PO SCH ×2 (11:16→22:10)
[2019-01-26] MEDS: TIOTROPIUM BROMIDE DPI 5 CAP/KIT (18 MCG/CAP) IH SCH (11:17)
[2019-01-26] MEDS: TRAMADOL HCL 50 MG TABLET PO PRN ×2 (11:22→22:09)
[2019-01-26] MEDS: INSULIN GLARGINE,HUM.REC.ANLOG 1,000 UNIT/10 ML VIAL SUBCUT SCH ×2 (15:09→18:54)
--- NOTE | 2019-01-26 16:33 | PDOC PROGRESS REPORT ---
Subjective Progress Note for:: 01/26/19 Subjective:: No adverse events overnight. She had some diarrhea yesterday it was tested and was positive for C. difficile. She said that she had C. 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 She said she has not had a bout of it since then. Reason For Visit: ACUTE RESPIRATORY FAILURE Physical Exam Vital Signs: Temp Pulse Resp BP Pulse Ox 97.5 F 72 16 128/46 H 97 01/26/19 16:15 01/26/19 16:15 01/26/19 16:15 01/26/19 16:15 01/26/19 16:15 Intake & Output 01/25/19 01/26/19 01/27/19 06:59 06:59 06:59 Intake Total 472 1204 Output Total 1295 1650 Balance -823 -446 Weight 145.2 kg 147.8 kg General appearance: PRESENT: no acute distress, cooperative Eye exam: ABSENT: scleral icterus Neck exam: PRESENT: full ROM. ABSENT: JVD, lymphadenopathy, tenderness, thyromegaly, tracheal deviation Respiratory exam: PRESENT: Clear to auscultation bilaterally, unlabored Cardiovascular exam: PRESENT: RRR Abdominal exam: Soft, obese, nontender, nondistended, normal bowel sounds, no guarding, no rebound Extremities exam: PRESENT: pedal edema Neurological exam: PRESENT: alert, oriented to person, oriented to place, oriented to time, oriented to situation Psychiatric exam: ABSENT: agitated, anxious Skin exam: PRESENT: dry, normal color, warm Results Laboratory Results: 01/24/19 05:42 01/26/19 08:06 01/26/19 08:06 Sodium 138.1 Potassium 3.4 L Chloride 98 Carbon Dioxide 32 H Anion Gap 8 BUN 84 H Creatinine 2.00 H Est GFR ( Amer) 30 L Est GFR (Non-Af Amer) 25 L Glucose 210 H Calcium 10.4 H 01/17/19 01/17/19 10:40 10:40 Creatine Kinase 48 CK-MB (CK-2) < 0.22 Troponin I 0.043 NT-Pro-B Natriuret Pep 1110 H Impressions: Chest X-Ray 01/18/19 06:00 IMPRESSION: No pneumonia or edema. Assessment and Plan - Diagnosis (1) Acute on chronic respiratory failure with hypoxia and hypercapnia Is this a current diagnosis for this admission?: Yes Plan: Resolved. Patient is back to baseline. We are trying to get her into a facility where she can have BiPAP. Apparently there are some but offers but we could not get a call back from her family to decide which place she wanted to go (2) Hyperkalemia Is this a current diagnosis for this admission?: Yes Plan: Resolved (3) Morbid obesity with BMI of 45.0-49.9, adult Is this a current diagnosis for this admission?: Yes Plan: Strongly encouraged lifestyle modification (4) Acute kidney injury superimposed on chronic kidney disease Is this a current diagnosis for this admission?: Yes Plan: Resolved. Creatinine back to baseline. Nephrology has been following. (5) C. difficile diarrhea Is this a current diagnosis for this admission?: Yes Plan: Started on p.o. vancomycin - Time Time Spent with patient: 25-34 minutes
[2019-01-27] MEDS: TRAMADOL HCL 50 MG TABLET PO PRN (05:50)
[2019-01-27] MEDS: LEVOTHYROXINE SODIUM 0.088 MG TABLET PO SCH (05:50)
[2019-01-27] MEDS: VANCOMYCIN HCL INJ 500 MG VIAL PO SCH ×4 (05:51→21:00)
[2019-01-27] MEDS: HEPARIN SOD (PORCINE) 5,000 UNIT/ML 1 ML SYRINGE SUBCUT SCH ×3 (05:51→22:54)
--- NOTE | 2019-01-27 08:03 | PDOC PROGRESS REPORT ---
Subjective Progress Note for:: 01/27/19 Reason For Visit: ACUTE RESPIRATORY FAILURE suture removal Physical Exam Vital Signs: Temp Pulse Resp BP Pulse Ox 97.7 F 55 L 17 114/42 L 98 01/27/19 03:09 01/27/19 03:09 01/27/19 03:09 01/27/19 03:09 01/27/19 03:09 Intake & Output 01/26/19 01/27/19 01/28/19 06:59 06:59 06:59 Intake Total 1204 200 Output Total 1650 2200 Balance -446 -2000 Weight 147.8 kg 147.9 kg General appearance: PRESENT: no acute distress Eye exam: PRESENT: conjunctiva pink Neck exam: PRESENT: full ROM Respiratory exam: PRESENT: clear to auscultation emperatriz Cardiovascular exam: PRESENT: RRR Pulses: PRESENT: +1 pedal pulses bilateral GI/Abdominal exam: PRESENT: soft Extremities exam: PRESENT: other - rt great toe amp site well healed sutures intact. Results Laboratory Results: 01/24/19 05:42 01/26/19 08:06 01/26/19 08:06 Sodium 138.1 Potassium 3.4 L Chloride 98 Carbon Dioxide 32 H Anion Gap 8 BUN 84 H Creatinine 2.00 H Est GFR ( Amer) 30 L Est GFR (Non-Af Amer) 25 L Glucose 210 H Calcium 10.4 H 01/17/19 01/17/19 10:40 10:40 Creatine Kinase 48 CK-MB (CK-2) < 0.22 Troponin I 0.043 NT-Pro-B Natriuret Pep 1110 H Impressions: Chest X-Ray 01/18/19 06:00 IMPRESSION: No pneumonia or edema. Assessment & Plan - Plan Summary Plan Summary: s/p rt great toe amp wound well healed will dc sutures.
[2019-01-27 09:53] LABS: ANION GAP 11 (5-19); BLOOD UREA NITROGEN 81 mg/dL (7-20); CALCIUM 10.7 mg/dL (8.4-10.2); CARBON DIOXIDE 29 mmol/L (22-30); CHLORIDE 97 mmol/L (98-107); GLUCOSE 202 mg/dL (75-110); POTASSIUM 3.4 mmol/L (3.6-5.0); SODIUM 137.3 mmol/L (137-145)
[2019-01-27] MEDS: INSULIN LISPRO 100 UNIT/ML 3 ML VIAL SUBCUT SCH ×3 (11:54→18:29)
[2019-01-27] MEDS: INSULIN GLARGINE,HUM.REC.ANLOG 1,000 UNIT/10 ML VIAL SUBCUT SCH ×2 (12:05→18:30)
[2019-01-27] MEDS: AMLODIPINE BESYLATE 5 MG TABLET PO SCH (12:20)
[2019-01-27] MEDS: FUROSEMIDE 40 MG TABLET PO SCH ×2 (12:21→18:28)
[2019-01-27] MEDS: ASPIRIN 81 MG TABLET, ENT COATED PO SCH (12:22)
[2019-01-27] MEDS: NYSTATIN TOPICAL POWDER 15 GM TP SCH ×2 (12:22→18:30)
[2019-01-27] MEDS: LISINOPRIL 10 MG TABLET PO SCH (12:22)
[2019-01-27] MEDS: CARVEDILOL 12.5 MG TABLET PO SCH ×2 (12:22→22:53)
[2019-01-27] MEDS: FAMOTIDINE 20 MG TABLET PO SCH ×2 (12:22→22:57)
[2019-01-27] MEDS: TIOTROPIUM BROMIDE DPI 5 CAP/KIT (18 MCG/CAP) IH SCH (12:24)
--- NOTE | 2019-01-27 17:16 | PDOC PROGRESS REPORT ---
Subjective Progress Note for:: 01/27/19 Subjective:: No adverse events overnight. No new complaints. Vital signs been stable. Her diarrhea has slowed down. She is only had one bowel movement since midnight. Appetite is fair. She feels fatigued. No shortness of breath. She had her stitches from her recent I&D of her left foot removed today. Reason For Visit: ACUTE RESPIRATORY FAILURE Physical Exam Vital Signs: Temp Pulse Resp BP Pulse Ox 97.2 F 61 18 106/38 L 98 01/27/19 15:12 01/27/19 15:12 01/27/19 15:12 01/27/19 15:12 01/27/19 15:12 Intake & Output 01/26/19 01/27/19 01/28/19 06:59 06:59 06:59 Intake Total 1204 200 Output Total 1650 2200 Balance -446 -2000 Weight 147.8 kg 147.9 kg General appearance: PRESENT: no acute distress, cooperative Eye exam: ABSENT: scleral icterus Neck exam: PRESENT: full ROM. ABSENT: JVD, lymphadenopathy, tenderness, thyromegaly, tracheal deviation Respiratory exam: PRESENT: Clear to auscultation bilaterally, unlabored Cardiovascular exam: PRESENT: RRR Abdominal exam: Soft, obese, nontender, nondistended, normal bowel sounds, no guarding, no rebound Extremities exam: PRESENT: pedal edema, incision on the left foot shows well approximated edges without evidence of erythema Neurological exam: PRESENT: alert, oriented to person, oriented to place, oriented to time, oriented to situation Psychiatric exam: ABSENT: agitated, anxious Skin exam: PRESENT: dry, normal color, warm Results Laboratory Results: 01/24/19 05:42 01/27/19 09:15 01/27/19 09:15 Sodium 137.3 Potassium 3.4 L Chloride 97 L Carbon Dioxide 29 Anion Gap 11 BUN 81 H Creatinine 1.98 H Est GFR ( Amer) 30 L Est GFR (Non-Af Amer) 25 L Glucose 202 H Calcium 10.7 H 01/17/19 01/17/19 10:40 10:40 Creatine Kinase 48 CK-MB (CK-2) < 0.22 Troponin I 0.043 NT-Pro-B Natriuret Pep 1110 H Impressions: Chest X-Ray 01/18/19 06:00 IMPRESSION: No pneumonia or edema. Assessment and Plan - Diagnosis (1) Acute on chronic respiratory failure with hypoxia and hypercapnia Is this a current diagnosis for this admission?: Yes Plan: Resolved. Patient is back to baseline. We are trying to get her into a facility where she can have BiPAP. Apparently there are some but offers but we could not get a call back from her family to decide which place she wanted to go (2) Hyperkalemia Is this a current diagnosis for this admission?: Yes Plan: Resolved (3) Morbid obesity with BMI of 45.0-49.9, adult Is this a current diagnosis for this admission?: Yes Plan: Strongly encouraged lifestyle modification (4) Acute kidney injury superimposed on chronic kidney disease Is this a current diagnosis for this admission?: Yes Plan: Resolved. Creatinine back to baseline. Nephrology has been following. (5) C. difficile diarrhea Is this a current diagnosis for this admission?: Yes Plan: Improving with p.o. vancomycin. She will need a course of 14 days. - Time Time Spent with patient: 25-34 minutes
[2019-01-28] MEDS: VANCOMYCIN HCL INJ 500 MG VIAL PO SCH ×4 (03:34→21:34)
[2019-01-28] MEDS: LEVOTHYROXINE SODIUM 0.088 MG TABLET PO SCH (05:45)
[2019-01-28] MEDS: TRAMADOL HCL 50 MG TABLET PO PRN ×2 (05:45→17:41)
[2019-01-28] MEDS: HEPARIN SOD (PORCINE) 5,000 UNIT/ML 1 ML SYRINGE SUBCUT SCH ×3 (05:47→21:34)
[2019-01-28] MEDS: INSULIN LISPRO 100 UNIT/ML 3 ML VIAL SUBCUT SCH ×4 (08:46→19:35)
[2019-01-28] MEDS: FUROSEMIDE 40 MG TABLET PO SCH ×2 (10:53→17:40)
[2019-01-28] MEDS: LISINOPRIL 10 MG TABLET PO SCH (10:53)
[2019-01-28] MEDS: FAMOTIDINE 20 MG TABLET PO SCH ×2 (10:54→21:34)
[2019-01-28] MEDS: ASPIRIN 81 MG TABLET, ENT COATED PO SCH (10:54)
[2019-01-28] MEDS: CARVEDILOL 12.5 MG TABLET PO SCH ×2 (10:54→21:39)
[2019-01-28] MEDS: AMLODIPINE BESYLATE 5 MG TABLET PO SCH (10:54)
[2019-01-28] MEDS: NYSTATIN TOPICAL POWDER 15 GM TP SCH ×2 (10:58→17:43)
[2019-01-28] MEDS: INSULIN GLARGINE,HUM.REC.ANLOG 1,000 UNIT/10 ML VIAL SUBCUT SCH ×2 (11:00→17:41)
[2019-01-28] MEDS: TIOTROPIUM BROMIDE DPI 5 CAP/KIT (18 MCG/CAP) IH SCH (14:33)
[2019-01-28] MEDS ORDERED: ONDANSETRON HCL INJ/PF 4 MG/2 ML SDV IV PRN (15:30)
--- NOTE | 2019-01-28 15:53 | PDOC PROGRESS REPORT ---
Subjective Progress Note for:: 01/28/19 Subjective:: No adverse events overnight. She is only had one bowel movement since midnight. She is afebrile. Eating and drinking without difficulty. Reason For Visit: ACUTE RESPIRATORY FAILURE Physical Exam Vital Signs: Temp Pulse Resp BP Pulse Ox 97.6 F 58 L 15 121/50 L 99 01/28/19 12:15 01/28/19 14:00 01/28/19 12:15 01/28/19 12:15 01/28/19 12:15 Intake & Output 01/27/19 01/28/19 01/29/19 06:59 06:59 06:59 Intake Total 200 1056 Output Total 2200 900 Balance -2000 156 Weight 147.9 kg 147.9 kg General appearance: PRESENT: no acute distress, cooperative Eye exam: ABSENT: scleral icterus Neck exam: PRESENT: full ROM. ABSENT: JVD, lymphadenopathy, tenderness, thyromegaly, tracheal deviation Respiratory exam: PRESENT: Clear to auscultation bilaterally, unlabored Cardiovascular exam: PRESENT: RRR Abdominal exam: Soft, obese, nontender, nondistended, normal bowel sounds, no guarding, no rebound Extremities exam: PRESENT: pedal edema, incision on the right foot shows well approximated edges without evidence of erythema Neurological exam: PRESENT: alert, oriented to person, oriented to place, oriented to time, oriented to situation Psychiatric exam: ABSENT: agitated, anxious Skin exam: PRESENT: dry, normal color, warm Results Laboratory Results: 01/24/19 05:42 01/27/19 09:15 01/17/19 01/17/19 10:40 10:40 Creatine Kinase 48 CK-MB (CK-2) < 0.22 Troponin I 0.043 NT-Pro-B Natriuret Pep 1110 H Impressions: Chest X-Ray 01/18/19 06:00 IMPRESSION: No pneumonia or edema. Assessment and Plan - Diagnosis (1) Acute on chronic respiratory failure with hypoxia and hypercapnia Is this a current diagnosis for this admission?: Yes Plan: Resolved. Patient is back to baseline. We are trying to get her into a facility where she can have BiPAP. Apparently there are some but offers but we could not get a call back from her family to decide which place she wanted to go (2) Hyperkalemia Is this a current diagnosis for this admission?: Yes Plan: Resolved (3) Morbid obesity with BMI of 45.0-49.9, adult Is this a current diagnosis for this admission?: Yes Plan: Strongly encouraged lifestyle modification (4) Acute kidney injury superimposed on chronic kidney disease Is this a current diagnosis for this admission?: Yes Plan: Resolved. Creatinine back to baseline. Nephrology has been following. (5) C. difficile diarrhea Is this a current diagnosis for this admission?: Yes Plan: Improving with p.o. vancomycin. She will need a course of 14 days. She is only had one bowel movement today so far. - Time Time Spent with patient: 25-34 minutes
[2019-01-28] MEDS: ACETAMINOPHEN 325 MG TABLET PO PRN (21:36)
[2019-01-29] MEDS: VANCOMYCIN HCL INJ 500 MG VIAL PO SCH ×4 (02:48→21:38)
[2019-01-29] MEDS: LEVOTHYROXINE SODIUM 0.088 MG TABLET PO SCH (05:40)
[2019-01-29] MEDS: HEPARIN SOD (PORCINE) 5,000 UNIT/ML 1 ML SYRINGE SUBCUT SCH ×3 (05:40→21:38)
[2019-01-29] MEDS ORDERED: ONDANSETRON HCL INJ/PF 4 MG/2 ML SDV IV PRN (09:00)
[2019-01-29] MEDS: INSULIN LISPRO 100 UNIT/ML 3 ML VIAL SUBCUT SCH ×3 (10:52→17:59)
[2019-01-29] MEDS: INSULIN GLARGINE,HUM.REC.ANLOG 1,000 UNIT/10 ML VIAL SUBCUT SCH ×2 (10:52→18:00)
[2019-01-29] MEDS: ASPIRIN 81 MG TABLET, ENT COATED PO SCH (11:46)
[2019-01-29] MEDS: FAMOTIDINE 20 MG TABLET PO SCH ×2 (11:46→21:38)
[2019-01-29] MEDS: AMLODIPINE BESYLATE 5 MG TABLET PO SCH (11:46)
[2019-01-29] MEDS: FUROSEMIDE 40 MG TABLET PO SCH ×2 (11:46→18:06)
[2019-01-29] MEDS: CARVEDILOL 12.5 MG TABLET PO SCH ×2 (11:46→21:42)
[2019-01-29] MEDS: LISINOPRIL 10 MG TABLET PO SCH (11:47)
[2019-01-29] MEDS: TIOTROPIUM BROMIDE DPI 5 CAP/KIT (18 MCG/CAP) IH SCH (11:50)
[2019-01-29] MEDS: NYSTATIN TOPICAL POWDER 15 GM TP SCH ×2 (11:53→18:06)
--- NOTE | 2019-01-29 12:23 | PDOC TRANSFER SUMMARY ---
General - Admit/Disc Date/PCP Admission Date/Primary Care Provider: 01/17/19 12:22 RAO PAGE MD Discharge Date: 01/29/19 - Discharge Diagnosis (1) C. difficile colitis Is this a current diagnosis for this admission?: Yes (2) Acute on chronic respiratory failure with hypoxemia Is this a current diagnosis for this admission?: Yes (3) Acute encephalopathy Is this a current diagnosis for this admission?: Yes (4) Systolic CHF, acute on chronic Is this a current diagnosis for this admission?: Yes (5) COPD (chronic obstructive pulmonary disease) Is this a current diagnosis for this admission?: Yes (6) Type 2 diabetes mellitus Is this a current diagnosis for this admission?: Yes (7) Hypothyroidism (acquired) Is this a current diagnosis for this admission?: Yes (8) Obstructive sleep apnea Is this a current diagnosis for this admission?: Yes (9) Chronic atrial fibrillation Is this a current diagnosis for this admission?: Yes (10) Hypertension Is this a current diagnosis for this admission?: Yes (11) Chronic renal disease, stage IV Is this a current diagnosis for this admission?: Yes (12) Hyperlipidemia Is this a current diagnosis for this admission?: Yes - Additional Information Resuscitation Status: Full Code Home Medications: Atorvastatin Calcium [Lipitor 20 mg Tablet] 20 mg PO QHS 10/17/18 Carvedilol [Coreg 12.5 mg Tablet] 12.5 mg PO Q12 10/17/18 Clobetasol Propionate [Temovate Solution] 1 applic TOP QHS MDD SCALP & EAR LOBES 10/17/18 Docusate Sodium [Colace 100 mg Capsule] 100 mg PO QAM 10/17/18 Fluticasone Propionate [Flonase Nasal Ayer 50 Mcg/Ayer 16 gm] 2 spray NASL QAM 10/17/18 Furosemide [Lasix 80 mg Tablet] 80 mg PO BID 10/17/18 Levothyroxine Sodium 88 mcg PO Q6AM 10/17/18 Lifitegrast [Xiidra] 1 drop OU BID 10/17/18 Ondansetron HCl [Zofran 4 mg Tablet] 4 mg PO Q8HP PRN 10/17/18 Phenol [Chloraseptic] 2 sprays PO BIDP PRN 10/17/18 Pimecrolimus [Elidel] 1 applic TOP BID MDD FACE & EARS FOR FLAKY SKIN 10/17/18 Potassium Chloride [K-Tab ER] 20 meq PO BID 10/17/18 Pregabalin [Lyrica 100 mg Capsule] 100 mg PO Q8 10/17/18 Ranitidine HCl [Zantac 150 mg Tablet] 75 mg PO BID 10/17/18 Sodium Chloride [Saline Mist] 1 spray NASL ACHS 10/17/18 Trazodone HCl [Desyrel 50 mg Tablet] 25 mg PO QHS 10/17/18 Amlodipine Besylate [Norvasc 5 mg Tablet] 5 mg PO DAILY #30 tablet 10/25/18 Aspirin [Ecotrin 81 mg EC Tablet] 81 mg PO DAILY #30 tabec 10/25/18 Budesonide [Pulmicort Neb 0.5 mg/2 ml Ampul] 0.5 mg NEB RTQ12 #60 ampul.neb 10/25/18 Cetirizine HCl [Zyrtec 5 mg Tablet] 5 mg PO QAM #30 tablet 10/25/18 Cholecalciferol (Vitamin D3) [Vitamin D3 1000 Unit Tablet] 5,000 unit PO DAILY tablet 10/25/18 Famotidine [Pepcid 20 mg Tablet] 20 mg PO QHS #30 tablet 10/25/18 Ferrous Sulfate [Feosol 325 mg Tablet] 325 mg PO DAILY #0 tablet 10/25/18 Insulin Glargine,Hum.rec.anlog [Lantus (Pyxis) Insulin 100 Unit/1 ml 10 ml] 60 unit SUBCUT BID #1 unit 10/25/18 Insulin Regular, Human [Humulin R (Reg) Insulin 100 unit/mL] 0 - 12 unit SUBCUT ACHSP PRN #1 vial 10/25/18 Lisinopril [Prinivil 10 mg Tablet] 10 mg PO DAILY #30 tablet 10/25/18 Albuterol Sulfate [Proventil 0.5% Neb 2.5 mg/0.5 ml Vial.neb] 2.5 mg NEB RTQ4HP PRN 10/28/18 Ketotifen Fumarate [Zaditor] 1 drop OU BID 01/12/19 Sennosides [Senna] 8.6 mg PO BID 01/12/19 Tamsulosin HCl [Flomax 0.4 mg Cap.sr] 0.4 mg PO QHS 01/12/19 Acetaminophen [Tylenol 325 mg Tablet] 325 mg PO Q4HP PRN tablet 01/16/19 Nystatin [Mycostatin Topical Powder 15 gm] 1 applic TP DAILY bottle 01/16/19 Oxycodone HCl/Acetaminophen [Percocet 5-325 mg Tablet] 1 tab PO Q6HP PRN #12 tablet 01/16/19 Sennosides/Docusate 8.6-50 mg [Senna Plus Tablet] 1 each PO DAILY tablet 01/16/19 Lifitegrast [Xiidra] 1 each OU BID 01/17/19 Tramadol HCl [Ultram 50 mg Tablet] 50 mg PO Q4HP PRN 01/17/19 History of Present Illness Admission Date/PCP: 01/17/19 12:22 RAO PAGE MD Hospital Course Hospital Course: LORETO JOSHI is a 68 year old female patient with multiple comorbidities inc luding morbid obesity, chronically infected diabetic ulcer, stage IV CKD, COPD, hypertension and type 2 diabetes mellitus brought from [facility] for acute respiratory failure and altered mental status. The reason for her acute encephalopathy is acute on chronic hypoxemic respiratory failure which has improved remarkably after she patient put on BiPAP. At presentation patient also has elevated BNP and the possibility of acute on chronic systolic congestive heart failure exacerbation entertained and she is managed with Lasix and her home medications. For her CKD Dr. Day and Dr. Stout managed with accordingly and currently her renal function is at its baseline. Patient is also status post great toe amputation. Her hospital course is complicated by C. difficile colitis which responded well for p.o. vancomycin. This morning I seen patient resting in bed comfortably she is awake alert her vital signs are stable her blood work is unremarkable so patient is stable enough to be discharged today. I will discharge her home with 10 days more vancomycin p.o. Physical Exam Vital Signs: Temp Pulse Resp BP Pulse Ox 97.5 F 60 17 124/47 L 100 01/29/19 08:00 01/29/19 08:00 01/29/19 08:00 01/29/19 08:00 01/29/19 08:00 Intake & Output 01/28/19 01/29/19 01/30/19 06:59 06:59 06:59 Intake Total 1056 500 Output Total 900 1150 Balance 156 -650 Weight 147.9 kg 147.9 kg General appearance: PRESENT: no acute distress Head exam: PRESENT: atraumatic Eye exam: PRESENT: conjunctiva pink Neck exam: ABSENT: carotid bruit, JVD, lymphadenopathy, thyromegaly Respiratory exam: PRESENT: clear to auscultation emperatriz. ABSENT: rales, rhonchi, wheezes Cardiovascular exam: PRESENT: RRR. ABSENT: diastolic murmur, rubs, systolic murmur Neurological exam: PRESENT: alert, awake, oriented to time, oriented to situat ion Results Laboratory Results: 01/24/19 05:42 01/27/19 09:15 01/17/19 01/17/19 10:40 10:40 Creatine Kinase 48 CK-MB (CK-2) < 0.22 Troponin I 0.043 NT-Pro-B Natriuret Pep 1110 H Impressions: Chest X-Ray 01/18/19 06:00 IMPRESSION: No pneumonia or edema. Qualifiers - * PATIENT BEING DISCHARGED WITH ANY OF THE FOLLOWING DIAGNOSIS: Heart Failure VTE patient discharged on overlapping Therapy?: No Reason(s) for not prescribing Overlap Therapy:: Not indicated Stroke Pt being discharged on Anti-thrombolytic therapy?: No Reason(s) for not prescribing Anti-thrombolytic therapy:: Not indicated Stroke Pt being discharged on Anti-coagulation therapy?: No Reason(s) for not prescribing Anti-coagulation therapy:: Not indicated Stroke Pt being discharged on Statins?: No Reason(s) for not prescribing Statins therapy:: Not indicated OR Pt being discharged on Aspirin therapy?: No Reason(s) for not prescribing Aspirin therapy:: Not indicated OR Pt being discharged on Statins?: No Reason(s) for not prescribing Statin therapy:: Not indicated OR Pt discharged ACEI/ARBS?: No Reason(s) for not prescribing ACEI/ARBS:: Not indicated HF Pt being discharged on ACEI for LVEF less than 40%?: No Reason(s) for not prescribing ACEI:: Contraindicated HF Pt being discharged on ARBS for LVEF less than 40%?: No Reason(s) for not prescribing ARBS:: Contraindicated HF Pt with Afib discharged with Warfarin?: No Reason(s) for not prescribing Warfarin:: Not indicated HF Pt discharged on evidence-based Beta Bharath:: Yes
--- NOTE | 2019-01-29 16:48 | PDOC PROGRESS REPORT ---
Subjective Progress Note for:: 01/29/19 Subjective:: I seen patient resting in bed comfortably. No new complaints. Patient has been on p.o. vancomycin for C. difficile colitis. Patient is about to be discharged to nursing facility at but the discharge she discontinued because patient change her mind and she wants to go back to [facility]. Reason For Visit: ACUTE RESPIRATORY FAILURE Physical Exam Vital Signs: Temp Pulse Resp BP Pulse Ox 97.5 F 71 20 120/44 L 100 01/29/19 12:08 01/29/19 14:00 01/29/19 12:08 01/29/19 12:08 01/29/19 12:08 Intake & Output 01/28/19 01/29/19 01/30/19 06:59 06:59 06:59 Intake Total 1056 500 Output Total 900 1150 Balance 156 -650 Weight 147.9 kg 147.9 kg General appearance: PRESENT: no acute distress Head exam: PRESENT: atraumatic Eye exam: PRESENT: conjunctiva pink Respiratory exam: PRESENT: clear to auscultation emperatriz. ABSENT: rales, rhonchi, wheezes Cardiovascular exam: PRESENT: RRR. ABSENT: diastolic murmur, rubs, systolic murmur Neurological exam: PRESENT: alert, awake, oriented to time, oriented to situation Results Laboratory Results: 01/24/19 05:42 01/27/19 09:15 01/17/19 01/17/19 10:40 10:40 Creatine Kinase 48 CK-MB (CK-2) < 0.22 Troponin I 0.043 NT-Pro-B Natriuret Pep 1110 H Impressions: Chest X-Ray 01/18/19 06:00 IMPRESSION: No pneumonia or edema. Assessment and Plan - Diagnosis (1) C. difficile colitis Is this a current diagnosis for this admission?: Yes Plan: Continue p.o. vancomycin (2) Acute on chronic respiratory failure with hypoxemia Is this a current diagnosis for this admission?: Yes Plan: Has resolved (3) Acute encephalopathy Is this a current diagnosis for this admission?: Yes Plan: 01/22/19 16:33 Patient appears to be closer to her baseline. Has multiple reasons during this admission to contribute to her acute encephalopathy. Continue to monitor. (4) Systolic CHF, acute on chronic Is this a current diagnosis for this admission?: Yes Plan: Improving (5) COPD (chronic obstructive pulmonary disease) Qualifiers: Emphysema type: unspecified Is this a current diagnosis for this admission?: Yes Plan: Continue as needed bronchodilator. (6) Type 2 diabetes mellitus Is this a current diagnosis for this admission?: Yes Plan: Continue current regimen (7) Hypothyroidism (acquired) Is this a current diagnosis for this admission?: Yes Plan: 01/22/19 16:37 Replacement therapy. (8) Obstructive sleep apnea Is this a current diagnosis for this admission?: Yes Plan: Continue BiPAP (9) Chronic atrial fibrillation Is this a current diagnosis for this admission?: Yes Plan: 01/22/19 16:35 Currently rate controlled. Continue beta-ml aspirin. And anticoagulation. (10) Hypertension Qualifiers: Hypertension type: essential hypertension Qualified Code(s): I10 - Essential (primary) hypertension Is this a current diagnosis for this admission?: Yes Plan: 01/22/19 16:36 Blood pressure has been well controlled. Continue home medications. (11) Chronic renal disease, stage IV Is this a current diagnosis for this admission?: Yes Plan: Her renal function is at its baseline. (12) Hyperlipidemia Qualifiers: Hyperlipidemia type: unspecified Qualified Code(s): E78.5 - Hyperlipidemia, unspecified Is this a current diagnosis for this admission?: Yes Plan: Continue home medication.
[2019-01-29] MEDS: TRAMADOL HCL 50 MG TABLET PO PRN (21:37)
[2019-01-30] MEDS: ACETAMINOPHEN 325 MG TABLET PO PRN (02:13)
[2019-01-30] MEDS: VANCOMYCIN HCL INJ 500 MG VIAL PO SCH ×3 (02:13→14:59)
[2019-01-30] MEDS: HEPARIN SOD (PORCINE) 5,000 UNIT/ML 1 ML SYRINGE SUBCUT SCH ×2 (05:27→14:59)
[2019-01-30] MEDS: LEVOTHYROXINE SODIUM 0.088 MG TABLET PO SCH (05:27)
[2019-01-30] MEDS: INSULIN LISPRO 100 UNIT/ML 3 ML VIAL SUBCUT SCH ×3 (08:00→13:23)
[2019-01-30] MEDS: LISINOPRIL 10 MG TABLET PO SCH (09:48)
[2019-01-30] MEDS: CARVEDILOL 12.5 MG TABLET PO SCH (09:48)
[2019-01-30] MEDS: FAMOTIDINE 20 MG TABLET PO SCH (09:48)
[2019-01-30] MEDS: ASPIRIN 81 MG TABLET, ENT COATED PO SCH (09:50)
[2019-01-30] MEDS: FUROSEMIDE 40 MG TABLET PO SCH (09:51)
[2019-01-30] MEDS: INSULIN GLARGINE,HUM.REC.ANLOG 1,000 UNIT/10 ML VIAL SUBCUT SCH (09:54)
[2019-01-30] MEDS: AMLODIPINE BESYLATE 5 MG TABLET PO SCH (09:56)
[2019-01-30] MEDS: TIOTROPIUM BROMIDE DPI 5 CAP/KIT (18 MCG/CAP) IH SCH (09:58)
[2019-01-30] MEDS: TRAMADOL HCL 50 MG TABLET PO PRN (10:14)
[2019-01-30] MEDS: NYSTATIN TOPICAL POWDER 15 GM TP SCH (10:28)
[2019-01-30 12:39] VITALS: BP 117/43
== END 2019-01-30 15:10 | DRG 189 ==
LOC: ER 10:21 → EH 12:22 → ICU 16:04 → 3W 01-20 22:21 → 4W 01-21 23:11 → 4N 01-26 06:10 → 5 01-26 06:38
PROVIDERS: ADMIT Internal Medicine; ATTEND Internal Medicine
PROC: 5A09557 Assistance with Respiratory Ventilation, Greater than 96 Consecutive Hours, Continuous Positive Airway Pressure (ICD-10-PCS; principal; 2019-01-17)
DX: J96.21 Acute and chronic respiratory failure with hypoxia (principal); I50.23 Acute on chronic systolic (congestive) heart failure; I13.0 Hypertensive heart and chronic kidney disease with heart failure and stage 1 through stage 4 chronic kidney disease, or unspecified chronic kidney disease; G93.40 Encephalopathy, unspecified; A04.72 Enterocolitis due to Clostridium difficile, not specified as recurrent; Z68.43 Body mass index [BMI] 50.0-59.9, adult; N18.4 Chronic kidney disease, stage 4 (severe); N17.9 Acute kidney failure, unspecified; N25.81 Secondary hyperparathyroidism of renal origin; L03.115 Cellulitis of right lower limb; E11.22 Type 2 diabetes mellitus with diabetic chronic kidney disease; E11.621 Type 2 diabetes mellitus with foot ulcer; J96.22 Acute and chronic respiratory failure with hypercapnia; J44.9 Chronic obstructive pulmonary disease, unspecified; I48.0 Paroxysmal atrial fibrillation; I25.10 Atherosclerotic heart disease of native coronary artery without angina pectoris; E11.21 Type 2 diabetes mellitus with diabetic nephropathy; E78.5 Hyperlipidemia, unspecified; E03.9 Hypothyroidism, unspecified; E66.01 Morbid (severe) obesity due to excess calories; M10.9 Gout, unspecified; M19.90 Unspecified osteoarthritis, unspecified site; F32.9 Major depressive disorder, single episode, unspecified; G47.33 Obstructive sleep apnea (adult) (pediatric); D63.1 Anemia in chronic kidney disease; N31.9 Neuromuscular dysfunction of bladder, unspecified; L97.519 Non-pressure chronic ulcer of other part of right foot with unspecified severity; E87.5 Hyperkalemia; I25.2 Old myocardial infarction; Z86.711 Personal history of pulmonary embolism; Z79.890 Hormone replacement therapy; Z82.49 Family history of ischemic heart disease and other diseases of the circulatory system; Z85.41 Personal history of malignant neoplasm of cervix uteri; Z83.3 Family history of diabetes mellitus; Z83.49 Family history of other endocrine, nutritional and metabolic diseases; Z79.4 Long term (current) use of insulin; Z79.899 Other long term (current) drug therapy; Z89.411 Acquired absence of right great toe
CPT/HCPCS: 36415; 36600; 71045; 80048; 80053; 81001; 82550; 82553; 82803; 82962; 83605; 83690; 83735; 83880; 84132; 84443; 84484; 85025; 85027; 85610; 87040; 87493; 93005; 93010; 94640; 94660; 96374; 99291; J1644; J1815; J1940; J1956; J2405; J2920; J3370; J3490; J7512; J7614